=== PATIENT | female | born 1950 | race African-American/Black ===

== ENCOUNTER 2017-11-13 03:03 | Emergency (ER) | payer OTHER, MEDICARE ==
[~2017-11-13 03:03] MED LIST: ADVIN25050 INH; ASCO500T3 PO; ASPI81TA28 PO; COQ-10 PO; GFNSR600 PO; HYDR25TA5 PO; IPRA1AER2 INH; LSN20 PO; NEOMOIN3 TOP; OXY PO; SPRIN INH; TPRSR25 PO; VITAMIN B PO; VITAMIN E PO
[2017-11-13 03:08] VITALS: TEMP 36.4; Ht 182.9 cm
--- NOTE | 2017-11-13 03:32 | EMERGENCY ROOM VISIT NOTE ---
History Report prepared by Carlton: Vickie Yee Under the Supervision of: Dr. Jim Davis M.D. First contact with patient: 03:13 Chief Complaint: SWELLING TO EXTREMITY Stated Complaint: LEGS SWELLING AND PAINFUL History of Present Illness The patient is a 67 year old female who presents to the Emergency Room with complaints of persistent swelling in her legs that started 6-8 weeks ago. The patient rates her pain a 6/10 in severity. The patient states she does not have a history of a heart attack or liver problems. She notes she was put on new medications in February of 2017 when she was admitted to the hospital for a panic attack. She states she noticed slight swelling shortly after but it went away. She noticed an increase in swelling again about 2 months ago. The patient was admitted to the ED about 3 years ago for similar symptoms. She states she is experiencing abdominal pain. The patient denies any chest pain, shortness of breath, fevers, or back pain. She states she is a smoker but she has cut down from 1 pack per day to 3 cigarettes per day. She notes she has not changed her medications since February. Source of History: patient Onset: 6-8 weeks ago Position: leg (bilateral) Symptom Intensity: 6/10 Timing: other (persistent) Associated Symptoms: + abdominal pain, No fevers, No chest pain, No SOB, No back pain Review of Systems See HPI for pertinent positives & negatives. A total of 10 systems reviewed and were otherwise negative. Past Medical & Surgical Medical Problems: (1) Acute CHF (congestive heart failure) (2) HTN (hypertension) (3) Hx of penicillin allergy (4) Hypertensive urgency Family History No pertinent family history Social History Smoking Status: Current Some Day Smoker Drug Use: none Marital Status: Housing Status: lives with family Occupation Status: employed Current/Historical Medications Scheduled Aspirin (Aspirin Ec), 81 MG PO DAILY Carvedilol (Coreg), 6.25 MG PO BIDM Furosemide (Lasix), 20 MG PO BID Hydralazine Hcl (Apresoline), 25 MG PO Q8 Isosorbide Mononitrate Ext Rel (Imdur Ext Rel), 30 MG PO QAM Sennosides-Docusate Sodium (Stool Softener), 1 TAB PO DIRECTED Vitamins C & E (Vitamin C), 1 CAP PO DAILY Allergies Coded Allergies: Penicillins (Unverified Allergy, Unknown, ., 11/13/17) Physical Exam Vital Signs Date Time Temp Pulse Resp B/P (MAP) Pulse Ox O2 Delivery O2 Flow Rate FiO2 11/13/17 05:19 82 21 158/95 91 Room Air 11/13/17 03:08 36.4 87 19 151/101 94 Room Air Physical Exam GENERAL: Patient is minimally distressed, anxious appearing and in no acute distress. HEENT: No acute trauma, normocephalic atraumatic, mucous membranes moist, no nasal congestion, no scleral icterus. NECK: No stridor, no adenopathy, no meningismus, trachea is midline. LUNGS: Crackles in bilateral lower lobes. HEART: Regular rate and rhythm. No murmurs, rubs, gallops appreciated. ABDOMEN: Soft, nontender, bowel sounds positive, no masses appreciated, no peritonitis. BACK: No midline tenderness, no CVA tenderness EXTREMITIES: 4+ pitting edema in bilateral legs extending to lower back. NEUROLOGIC: Alert and oriented, no acute motor or sensory deficits, no focal weakness, cranial nerves grossly intact. SKIN: No rash, no jaundice, no diaphoresis. Medical Decision & Procedures Laboratory Results 11/13/17 03:40 Red Blood Count 4.55, Mean Corpuscular Volume 93.4, Mean Corpuscular Hemoglobin 30.5, Mean Corpuscular Hemoglobin Concent 32.7, Mean Platelet Volume 9.1, Neutrophils (%) (Auto) 58.6, Lymphocytes (%) (Auto) 27.8, Monocytes (%) (Auto) 10.5, Eosinophils (%) (Auto) 2.5, Basophils (%) (Auto) 0.4, Neutrophils # (Auto ) 4.99, Lymphocytes # (Auto) 2.37, Monocytes # (Auto) 0.89, Eosinophils # (Auto ) 0.21, Basophils # (Auto) 0.03 11/13/17 03:40 Test 11/13/17 03:40 11/13/17 04:25 White Blood Count 8.51 K/uL (4.8-10.8) Red Blood Count 4.55 M/uL (4.2-5.4) Hemoglobin 13.9 g/dL (12.0-16.0) Hematocrit 42.5 % (37-47) Mean Corpuscular Volume 93.4 fL (80-100) Mean Corpuscular Hemoglobin 30.5 pg (25-34) Mean Corpuscular Hemoglobin Concent 32.7 g/dl (32-36) Platelet Count 181 K/uL (130-400) Mean Platelet Volume 9.1 fL (7.4-10.4) Neutrophils (%) (Auto) 58.6 % Lymphocytes (%) (Auto) 27.8 % Monocytes (%) (Auto) 10.5 % Eosinophils (%) (Auto) 2.5 % Basophils (%) (Auto) 0.4 % Neutrophils # (Auto) 4.99 K/uL (1.4-6.5) Lymphocytes # (Auto) 2.37 K/uL (1.2-3.4) Monocytes # (Auto) 0.89 K/uL (0.11-0.59) Eosinophils # (Auto) 0.21 K/uL (0-0.5) Basophils # (Auto) 0.03 K/uL (0-0.2) RDW Standard Deviation 46.0 fL (36.4-46.3) RDW Coefficient of Variation 13.4 % (11.5-14.5) Immature Granulocyte % (Auto) 0.2 % Immature Granulocyte # (Auto) 0.02 K/uL (0.00-0.02) Anion Gap 4.0 mmol/L (3-11) Estimated GFR () 65.0 Estimated GFR (Non- 56.1 BUN/Creatinine Ratio 16.7 (10-20) Calcium Level 8.4 mg/dl (8.5-10.1) Magnesium Level 1.8 mg/dl (1.8-2.4) Total Bilirubin 1.1 mg/dl (0.2-1) Direct Bilirubin 0.4 mg/dl (0-0.2) Aspartate Amino Transf (AST/SGOT) 23 U/L (15-37) Alanine Aminotransferase (ALT/SGPT) 31 U/L (12-78) Alkaline Phosphatase 135 U/L (45-117) Total Creatine Kinase 153 U/L (26-192) Troponin I 0.043 ng/ml (0-0.045) Total Protein 6.3 gm/dl (6.4-8.2) Albumin 3.2 gm/dl (3.4-5.0) Thyroid Stimulating Hormone (TSH) 1.770 uIu/ml (0.300-4.500) Urine Color YELLOW Urine Appearance CLEAR (CLEAR) Urine pH 5.5 (4.5-7.5) Urine Specific [place] 1.017 (1.000-1.030) Urine Protein 2+ (NEG) Urine Glucose (UA) NEG (NEG) Urine Ketones NEG (NEG) Urine Occult Blood NEG (NEG) Urine Nitrite NEG (NEG) Urine Bilirubin NEG (NEG) Urine Urobilinogen NEG (NEG) Urine Leukocyte Esterase NEG (NEG) Urine WBC (Auto) 1-5 /hpf (0-5) Urine RBC (Auto) 0-4 /hpf (0-4) Urine Hyaline Casts (Auto) 1-5 /lpf (0-5) Urine Epithelial Cells (Auto) 20-30 /lpf (0-5) Urine Bacteria (Auto) NEG (NEG) Medications Administered Medications (Trade) Dose Ordered Sig/Yady Route Start Time Stop Time Status Last Admin Dose Admin Furosemide (Lasix Inj) 40 mg NOW STAT IV 11/13/17 04:58 11/13/17 04:59 DC 11/13/17 05:20 40 MG ECG Indication: other (swelling) Rate (beats per minute): 90 Rhythm: sinus rhythm Findings: PVC, ST depression (Lateral), T-wave inversion (Lateral), no acute ischemic change, no ectopy Comparison ECG Date: 10/17/15 Change: no significant change ED Course 0313: The patient was evaluated in room A10. A complete history and physical exam was performed. Medical Decision Differential: DVT, CHF, Arterial Occlusion, Infectious, Lymphedema, Idiopathic, Liver Failure, Hemialbumin, Trauma, amongst other pathologies entertained. 67 yr old female with longstanding CHF arrives for increasing leg swelling over the last few weeks. Clearly pitting edema bilateral legs without clear evidence of infection at this time. No TTP over calves nor DVT history nor reason to suspect bilateral DVT. Furthermore she has had similar symptoms before with negative US Duplex legs. CXR with congestive findings and with 4+ edema lower legs would be reasonable bringing in to hospital but she is in no interest of this and states she needs to get discharged. We discussed proper diet and exercise plus need to double her lasix dosing for the next 4 to 5 days while waiting to get in with PCP. I opted to give her initial IV dose lasix while here given how significant her edema is. Her Cr is OK, liver function is at baseline and I see no evidence of current infection. EKG is at her baseline and Trop is wnl and it appears her baseline is mildly positive. We discussed at length symptoms that require immediate RTED, including risks of kidney injury from lasix and possibility of failure outpatient therapy. I implored upon her the need to have a PCP and a Ammonia Operator and even had case management talk to her, though she is not willing to discuss seeing construction sales manager right night. Medication Reconcilliation Current Medication List: was personally reviewed by me Impression Primary Impression: Congestive heart failure Additional Impression: Bilateral leg edema Scribe Attestation The scribe's documentation has been prepared under my direction and personally reviewed by me in its entirety. I confirm that the note above accurately reflects all work, treatment, procedures, and medical decision making performed by me. Departure Information Dispostion Home / Self-Care Referrals No Doctor, Assigned (PCP) Patient Instructions Congestive Heart Failure -[facility], [facility] Additional Instructions It is absolutely important you follow up with a Primary Care Provider and a Ammonia Operator as soon as possible to manage your medical conditions. Double the dose of your Lasix (furosemide) for the next 4 to 5 days. Try to exercise several times daily by walking around as best you can. Eat a well balanced, low sodium diet. Keep legs elevated when you are able to do so. Call 911 or return immediately if you develop chest pain, shortness of breath, increasing weakness, pain in legs, fevers, or other emergent concerns. Problem Qualifiers Primary Impression: Congestive heart failure
[2017-11-13] MEDS ORDERED: FURO-85 PO (03:44)
[2017-11-13] MEDS ORDERED: HYDR-4717 PO (03:46)
[2017-11-13] MEDS ORDERED: ISOS30TA3 PO (03:47)
[2017-11-13] MEDS ORDERED: CARV6.252 PO (03:48)
[2017-11-13] MEDS ORDERED: SENNTAB23 PO (03:49)
[2017-11-13 03:52] LABS: BASO % 0.4 %; BASO ABS # 0.03 K/uL (0-0.2); EOS % 2.5 %; EOS ABS # 0.21 K/uL (0-0.5); HEMATOCRIT 42.5 % (37-47); HEMOGLOBIN 13.9 g/dL (12.0-16.0); IG# 0.02 K/uL (0.00-0.02); LYMPH % 27.8 %; LYMPH ABS # 2.37 K/uL (1.2-3.4); MEAN CELL VOLUME 93.4 fL (80-100); MEAN CORPUSCULAR HEMOGLOBIN 30.5 pg (25-34); MEAN CORPUSCULAR HGB CONC 32.7 g/dl (32-36); MEAN PLATELET VOLUME 9.1 fL (7.4-10.4); MONO % 10.5 %; MONO ABS # 0.89 K/uL (0.11-0.59); NEUT % 58.6 %; NEUT ABS # 4.99 K/uL (1.4-6.5); PLATELET COUNT 181 K/uL (130-400); RED CELL DISTRIBUTION WIDTH CV 13.4 % (11.5-14.5); WHITE BLOOD COUNT 8.51 K/uL (4.8-10.8)
[2017-11-13] MEDS ORDERED: VITACAP26 PO (03:52)
[2017-11-13 04:18] LABS: ALBUMIN 3.2 gm/dl (3.4-5.0); ALT/SGPT 31 U/L (12-78); AST/SGOT 23 U/L (15-37); BLOOD UREA NITROGEN 17 mg/dl (7-18); CALCIUM 8.4 mg/dl (8.5-10.1); CARBON DIOXIDE 29 mmol/L (21-32); CREATININE 1.02 mg/dl (0.60-1.20); GLUCOSE 99 mg/dl (70-99); POTASSIUM 3.7 mmol/L (3.5-5.1); SODIUM 134 mmol/L (136-145)
[2017-11-13 04:29] LABS: ALKALINE PHOSPHATASE 135 U/L (45-117); TOTAL PROTEIN 6.3 gm/dl (6.4-8.2)
[2017-11-13] MEDS ORDERED: FUROSEMIDE 40 MG/4 ML VIAL IV STA (04:58)
[2017-11-13 05:19] VITALS: BP 158/95; PULSE 82; O2SAT 91
--- NOTE | 2017-11-13 06:32 | DIAGNOSTIC IMAGING REPORT ---
CHEST ONE VIEW PORTABLE CLINICAL HISTORY: Congestive Heart Failure dyspnea COMPARISON STUDY: 10/15/2015 FINDINGS: Moderate stable cardiomegaly. Lungs are clear. Diaphragms are smooth. IMPRESSION: Cardiomegaly. Lungs are clear. The above report was generated using voice recognition software. It may contain grammatical, syntax or spelling errors. Electronically signed by: Zackery Love M.D. 11/13/2017 6:31 AM Dictated Date/Time: 11/13/2017 6:31 AM
== END 2017-11-13 05:31 | disposition home or self-care (01) ==
LOC: C.EDB 03:05 → C.EDA 05:31
DX: I50.9 Heart failure, unspecified (principal); R60.9 Edema, unspecified; I10 Essential (primary) hypertension; F17.200 Nicotine dependence, unspecified, uncomplicated; Z79.82 Long term (current) use of aspirin

== ENCOUNTER 2017-12-15 05:44 | Inpatient (IN) | payer OTHER, MEDICARE ==
[~2017-12-15] VITALS: Ht 182.9 cm; Wt 83.2 kg
[2017-12-15] VITALS (7 sets, daily range): BP systolic 109–154; BP diastolic 64–91; PULSE 76–85; TEMP 36.6–37.1; O2SAT 92–100; BMI 29.1
[~2017-12-15 05:44] MED LIST changes: -ADVIN25050 INH; -ASCO500T3 PO; +CARV6.252 PO; -COQ-10 PO; +FURO-85 PO; -GFNSR600 PO; +HYDR-4717 PO; -HYDR25TA5 PO; -IPRA1AER2 INH; +ISOS30TA3 PO; -LSN20 PO; -NEOMOIN3 TOP; -OXY PO; +SENNTAB23 PO; -SPRIN INH; -TPRSR25 PO; +VITACAP26 PO; -VITAMIN B PO; -VITAMIN E PO
--- NOTE | 2017-12-15 06:18 | EMERGENCY ROOM VISIT NOTE ---
History Report prepared by Carlton: Enid Isabel Under the Supervision of: Dr. Komal Pacheco D.O. (Komal Pacheco D.O.) Report prepared by Carlton: Juice Beck Under the Supervision of: Dr. Kota Roblero D.O. (Kota Roblero DO) First contact with patient: 05:59 (Komal Pacheco D.O.) First contact with patient: 06:07 (Kota Roblero DO) Chief Complaint: ABDOMINAL PAIN Stated Complaint: ABDOMINAL PAIN History of Present Illness The patient is a 67 year old female who presents to the Emergency Room with complaints of intermittent episodes of abdominal swelling that began about 12 days ago. The patient states that she has been experiencing abdominal pain, leg swelling, genital swelling, and pain with urination. She reports a history of CHF, hypertension, and glaucoma. The patient notes that she is currently a smoker. (Komal Pacheco D.O.) The patient is a 67 year old woman who presents to the Emergency Room with a chief complaint of intermittent suprapubic abdominal pain that began two months ago. She has a past medical history of CHF, hypertension, and glaucoma. A couple of months ago, the patient was diagnosed with CHF and started on Lasix. Ever since then, the patient has been experiencing frequent episodes of urination, about 9 times a day. She also began to experience this pressure-like pain whenever she urinates. She denies any fevers, chest pain, or shortness of breath. She notes that she smokes about 4 cigarettes a day. She denies any alcohol use. She still has her appendix, gallbladder, and uterus. She notes that she is having increased swelling to her abdomen, genitals, and legs. Source of History: patient Onset: 2 months ago Position: abdomen (suprapubic) Symptom Intensity: moderate Quality: pressure Timing: intermittent Associated Symptoms: + urinary symptoms (Frequency), No fevers, No chest pain, No SOB Note: She is experiencing increased swelling to her abdomen, legs, and genitals. (Kota Roblero DO) Review of Systems See HPI for pertinent positives & negatives. A total of 10 systems reviewed and were otherwise negative. (Komal Pacheco D.O.) See HPI for pertinent positives & negatives. A total of 10 systems reviewed and were otherwise negative. (Kota Roblero DO) Past Medical & Surgical Medical Problems: (1) Acute CHF (congestive heart failure) (2) HTN (hypertension) (3) Hx of penicillin allergy (4) Hypertensive urgency (Kota Roblero DO) Family History No pertinent family history (Komal Pacheco D.OElena) No pertinent family history (Kota Roblero DO) Social History Smoking Status: Current Some Day Smoker Drug Use: none Marital Status: Housing Status: lives with family Occupation Status: employed (Komal Pacheco D.O.) Smoking Status: Current Every Day Smoker Smokeless Tobacco Use: No Alcohol Use: none Drug Use: none (Kota Roblero DO) Current/Historical Medications Scheduled Aspirin (Aspirin Ec), 81 MG PO DAILY Atorvastatin (Lipitor), 40 MG PO HS Carvedilol (Coreg), 6.25 MG PO BIDM Furosemide (Lasix), 20 MG PO BID Hydralazine Hcl (Apresoline), 25 MG PO Q8 Isosorbide Mononitrate Ext Rel (Imdur Ext Rel), 30 MG PO QAM Vitamins C & E (Vitamin C), 1 CAP PO DAILY Scheduled PRN Ibuprofen (Advil), 200-600 MG PO Q4H PRN for Pain Sennosides-Docusate Sodium (Stool Softener), 1 TAB PO DIRECTED PRN for Constipation Allergies Coded Allergies: Penicillins (Verified Allergy, Unknown, PT STATES "THINK THE DOSE WAS TO HIGH"-CAN'T REMEMBER REACT, 12/15/17) Physical Exam Vital Signs Date Time Temp Pulse Resp B/P (MAP) Pulse Ox O2 Delivery O2 Flow Rate FiO2 12/15/17 06:12 95 Nasal Cannula 2.0 12/15/17 05:58 89 12/15/17 05:46 95 Nasal Cannula 2.0 12/15/17 05:44 36.3 95 24 166/111 87 Room Air (Kota Roblero DO) Medical Decision & Procedures Laboratory Results Test 12/15/17 06:09 12/15/17 06:37 Creatine Kinase MB Ratio (0-3.0) Laboratory results per my review. (Kota Roblero DO) ED Course 0609: Past medical records reviewed. The patient was evaluated in room B9. A complete history and physical exam was performed. (Komal Pacheco D.O.) 0607: The patient was evaluated in room B9. A complete history and physical examination were performed. (Kota Roblero DO) Medication Reconcilliation Current Medication List: was personally reviewed by me (Komal Pacheco D.O.) Current Medication List: was personally reviewed by me (Kota Roblero DO) Scribe Attestation The scribe's documentation has been prepared under my direction and personally reviewed by me in its entirety. I confirm that the note above accurately reflects all work, treatment, procedures, and medical decision making performed by me. (Komal Pacheco D.O.) The scribe's documentation has been prepared under my direction and personally reviewed by me in its entirety. I confirm that the note above accurately reflects all work, treatment, procedures, and medical decision making performed by me. (Kota Roblero DO) Departure Information Dispostion Home / Self-Care Referrals No Doctor, Assigned (PCP) Forms Call Back Authorization, HOME CARE DOCUMENTATION FORM, IMPORTANT VISIT INFORMATION Patient Instructions My [facility]
[2017-12-15] MEDS ORDERED: APR25 PO (06:19)
[2017-12-15] MEDS ORDERED: IBUP-1050 PO (06:19)
[2017-12-15] MEDS ORDERED: ATOR-24 PO (06:19)
[2017-12-15 06:48] LABS: BASO % 0.1 %; BASO ABS # 0.01 K/uL (0-0.2); EOS % 1.3 %; EOS ABS # 0.13 K/uL (0-0.5); HEMATOCRIT 38.4 % (37-47); HEMOGLOBIN 12.4 g/dL (12.0-16.0); IG# 0.02 K/uL (0.00-0.02); LYMPH % 12.2 %; LYMPH ABS # 1.24 K/uL (1.2-3.4); MEAN CELL VOLUME 89.7 fL (80-100); MEAN CORPUSCULAR HGB CONC 32.3 g/dl (32-36); MEAN PLATELET VOLUME 8.7 fL (7.4-10.4); MONO % 11.5 %; MONO ABS # 1.16 K/uL (0.11-0.59); NEUT % 74.7 %; NEUT ABS # 7.57 K/uL (1.4-6.5); PLATELET COUNT 201 K/uL (130-400); RED CELL DISTRIBUTION WIDTH CV 14.1 % (11.5-14.5); RED CELL DISTRIBUTION WIDTH SD 46.4 fL (36.4-46.3); WHITE BLOOD COUNT 10.13 K/uL (4.8-10.8)
--- NOTE | 2017-12-15 06:53 | EMERGENCY ROOM VISIT NOTE ---
History Report prepared by Carlton: Juice Beck Under the Supervision of: Dr. Kota Roblero D.O. First contact with patient: 06:07 Chief Complaint: ABDOMINAL PAIN Stated Complaint: ABDOMINAL PAIN Nursing Triage Summary: Pt arrived via [facility] from home. Per pt, she has been having severe abdominal pains "for a long while now" that come and go in waves. When pain is at its worse its a 10/10. Pt reports chronic constipation. Daughter reports pt had a "large bowel movement today". Pt also complaining of bilateral extremity edema from feet to pelvis. Pt concerned for UTI due to reports of pain with urination. Hx of glaucoma (nearly blind), HF History of Present Illness The patient is a 67 year old female who presents to the Emergency Room with complaints of intermittent suprapubic abdominal pain that began two months ago. She has a past medical history of CHF, hypertension, and glaucoma. A couple of months ago, the patient was diagnosed with CHF and started on Lasix. Ever since then, the patient has been experiencing frequent episodes of urination, about 9 times a day. She also began to experience this pressure-like pain whenever she urinates. She denies any fevers, chest pain, or shortness of breath. She notes that she smokes about 4 cigarettes a day. She denies any alcohol use. She still has her appendix, gallbladder, and uterus. She notes that she is having increased swelling to her abdomen, genitals, and legs. Source of History: patient Onset: 2 months ago Position: abdomen (suprapubic) Symptom Intensity: moderate Quality: pressure Timing: intermittent Associated Symptoms: + urinary symptoms (Frequency), No fevers, No chest pain, No SOB Note: She is experiencing an increased swelling to her abdomen, genitals, and legs. Review of Systems See HPI for pertinent positives & negatives. A total of 10 systems reviewed and were otherwise negative. Past Medical & Surgical Medical Problems: (1) Acute CHF (congestive heart failure) (2) HTN (hypertension) (3) Hx of penicillin allergy (4) Hypertensive urgency Family History No pertinent family history Social History Smoking Status: Current Every Day Smoker Smokeless Tobacco Use: No Alcohol Use: none Drug Use: none Marital Status: Housing Status: lives with family Occupation Status: employed Current/Historical Medications Scheduled Aspirin (Aspirin Ec), 81 MG PO DAILY Atorvastatin (Lipitor), 40 MG PO HS Carvedilol (Coreg), 6.25 MG PO BIDM Furosemide (Lasix), 20 MG PO BID Hydralazine Hcl (Apresoline), 25 MG PO Q8 Isosorbide Mononitrate Ext Rel (Imdur Ext Rel), 30 MG PO QAM Vitamins C & E (Vitamin C), 1 CAP PO DAILY Scheduled PRN Ibuprofen (Advil), 200-600 MG PO Q4H PRN for Pain Sennosides-Docusate Sodium (Stool Softener), 1 TAB PO DIRECTED PRN for Constipation Allergies Coded Allergies: Penicillins (Verified Allergy, Unknown, PT STATES "THINK THE DOSE WAS TO HIGH"-CAN'T REMEMBER REACT, 12/15/17) Physical Exam Vital Signs Date Time Temp Pulse Resp B/P (MAP) Pulse Ox O2 Delivery O2 Flow Rate FiO2 12/15/17 08:39 81 18 155/93 94 Room Air 12/15/17 07:18 88 20 145/90 95 Nasal Cannula 2.0 12/15/17 06:12 95 Nasal Cannula 2.0 12/15/17 05:58 89 12/15/17 05:46 95 Nasal Cannula 2.0 12/15/17 05:44 36.3 95 24 166/111 87 Room Air Physical Exam GENERAL: Patient is awake, alert, and in no acute distress. Patient is resting comfortably and showing no signs of anxiety EYES: The conjunctivae are clear. The pupils are round and reactive. EARS, NOSE, MOUTH AND THROAT: The nose is without any evidence of any deformity. Mucous membranes are moist tongue is midline NECK: The neck is nontender and supple. RESPIRATORY: Lung sounds were diminished throughout with scattered rhonchi. No tachypnea or conversational dyspnea. CARDIOVASCULAR: Regular rate and rhythm noted there no murmurs rubs or gallops normal S1 normal S2 GASTROINTESTINAL: The abdomen is moderately distended, but soft. Suprapubic distention was significant. Bowel sounds are present in all quadrants. Abdomen is diffusely tender. No guarding or rigidity. MUSCULOSKELETAL/EXTREMITIES: There is no evidence of gross deformity full range of motion is noted in the hips and shoulders SKIN: There is significant edema to both lower extremities with venous stasis changes noted. There is no obvious evidence of any rash. There are no petechiae , pallor or cyanosis noted. NEUROLOGIC: Patient is awake alert and oriented x3. Medical Decision & Procedures ER Provider Diagnostic Interpretation: Radiology results as stated below per my review and radiologist interpretation: CHEST ONE VIEW PORTABLE HISTORY: 67 years-old Female EVALUATE RESPIRATORY DISTRESS.DYSPNEA acute respiratory distress COMPARISON: Chest radiograph 11/13/2017, chest CT 10/19/2015 TECHNIQUE: Portable AP view of the chest FINDINGS: The cardiac silhouette is again moderately enlarged. Atherosclerosis of the aorta. There is no pneumothorax. No large pleural effusion. Emphysematous changes are noted with hyperinflation. There is mild pulmonary vascular congestion without overt pulmonary edema. Chronic interstitial coarsening redemonstrated with hazy subsegmental bibasilar opacities. The bones appear grossly intact. IMPRESSION: 1. Cardiomegaly without overt pulmonary edema. 2. Emphysema with chronic interstitial coarsening. 3. Subsegmental bibasilar opacities favor atelectasis. The above report was generated using voice recognition software. It may contain grammatical, syntax or spelling errors. Electronically signed by: Bulmaro Salazar M.D. 12/15/2017 6:49 AM Dictated Date/Time: 12/15/2017 6:47 AM ABDOMEN AND PELVIS CT WITH IV CONTRAST CT DOSE: 913.33 mGycm HISTORY: Acute generalized lower abdominal pain with lower extremity edema lower abd pain, LE edema TECHNIQUE: Multiaxial CT images of the abdomen and pelvis were performed following the use of intravenous contrast. A dose lowering technique was utilized adhering to the principles of ALARA. COMPARISON STUDY: Chest radiograph of same day, chest CT 10/19/2015. FINDINGS: Moderate enlargement of the imaged cardiac chambers. Trace bilateral pleural effusions. Emphysematous changes of the lungs redemonstrated. Groundglass opacities of the lung bases suggest atelectasis. There is no pneumatosis or pneumoperitoneum identified. Study is limited secondary to patient body habitus and patient motion. Decreased attenuation of the liver is compatible with fatty infiltration. The liver also appears to be mildly enlarged. The spleen, pancreas and right adrenal gland are unremarkable. The left adrenal gland is not well seen. The kidneys appear unremarkable. No hydronephrosis. 12 mm low attenuating lesion of the inferior pole right kidney suggests renal cyst. Urinary bladder is mostly decompressed. Uterus and adnexa are unremarkable. Air is noted within the endometrial canal. Uterine fundus. Mild amount of abdominal and pelvic ascites is noted with mesenteric and diffuse body wall edema. Moderate to extensive calcification of the aorta and iliac vasculature. No aneurysm. No pathologic adenopathy. Small sliding-type hiatal hernia. No bowel obstruction. Colonic diverticulosis without definite evidence of acute diverticulitis. Appendix is not well seen. Degenerative changes are noted throughout the spine. The bones appear osteopenic. IMPRESSION: 1. Findings compatible with fluid overload with mild abdominal and pelvic ascites, trace bilateral pleural effusions and diffuse body wall edema. 2. Hepatic steatosis. 3. No evidence of bowel obstruction or pneumoperitoneum. 4. Nonspecific air is noted within the endometrial canal near the uterine fundus. 5. Small sliding-type hiatal hernia. 6. Additional findings as above. Electronically signed by: Bulmaro Salazar M.D. 12/15/2017 8:14 AM Dictated Date/Time: 12/15/2017 8:05 AM Laboratory Results 12/15/17 06:37 Red Blood Count 4.28, Mean Corpuscular Volume 89.7, Mean Corpuscular Hemoglobin 29.0, Mean Corpuscular Hemoglobin Concent 32.3, Mean Platelet Volume 8.7, Neutrophils (%) (Auto) 74.7, Lymphocytes (%) (Auto) 12.2, Monocytes (%) (Auto) 11.5, Eosinophils (%) (Auto) 1.3, Basophils (%) (Auto) 0.1, Neutrophils # (Auto ) 7.57, Lymphocytes # (Auto) 1.24, Monocytes # (Auto) 1.16, Eosinophils # (Auto ) 0.13, Basophils # (Auto) 0.01 12/15/17 06:37 Test 12/15/17 06:37 12/15/17 07:10 White Blood Count 10.13 K/uL (4.8-10.8) Red Blood Count 4.28 M/uL (4.2-5.4) Hemoglobin 12.4 g/dL (12.0-16.0) Hematocrit 38.4 % (37-47) Mean Corpuscular Volume 89.7 fL (80-100) Mean Corpuscular Hemoglobin 29.0 pg (25-34) Mean Corpuscular Hemoglobin Concent 32.3 g/dl (32-36) Platelet Count 201 K/uL (130-400) Mean Platelet Volume 8.7 fL (7.4-10.4) Neutrophils (%) (Auto) 74.7 % Lymphocytes (%) (Auto) 12.2 % Monocytes (%) (Auto) 11.5 % Eosinophils (%) (Auto) 1.3 % Basophils (%) (Auto) 0.1 % Neutrophils # (Auto) 7.57 K/uL (1.4-6.5) Lymphocytes # (Auto) 1.24 K/uL (1.2-3.4) Monocytes # (Auto) 1.16 K/uL (0.11-0.59) Eosinophils # (Auto) 0.13 K/uL (0-0.5) Basophils # (Auto) 0.01 K/uL (0-0.2) RDW Standard Deviation 46.4 fL (36.4-46.3) RDW Coefficient of Variation 14.1 % (11.5-14.5) Immature Granulocyte % (Auto) 0.2 % Immature Granulocyte # (Auto) 0.02 K/uL (0.00-0.02) Prothrombin Time 12.7 SECONDS (9.0-12.0) Prothromb Time International Ratio 1.2 (0.9-1.1) Activated Partial Thromboplast Time 28.5 SECONDS (21.0-31.0) Partial Thromboplastin Ratio 1.1 Anion Gap 9.0 mmol/L (3-11) Est Creatinine Clear Calc Drug Dose 96.3 ml/min Estimated GFR () 99.0 Estimated GFR (Non- 85.4 BUN/Creatinine Ratio 16.1 (10-20) Calcium Level 8.5 mg/dl (8.5-10.1) Total Bilirubin 2.0 mg/dl (0.2-1) Aspartate Amino Transf (AST/SGOT) 15 U/L (15-37) Alanine Aminotransferase (ALT/SGPT) 19 U/L (12-78) Alkaline Phosphatase 148 U/L (45-117) Total Creatine Kinase 72 U/L (26-192) Creatine Kinase MB 2.7 ng/ml (0.5-3.6) Creatine Kinase MB Ratio 3.8 (0-3.0) Troponin I 0.019 ng/ml (0-0.045) Pro-B-Type Natriuretic Peptide 8359 pg/ml (0-900) Total Protein 6.1 gm/dl (6.4-8.2) Albumin 2.7 gm/dl (3.4-5.0) Globulin 3.4 gm/dl (2.5-4.0) Albumin/Globulin Ratio 0.8 (0.9-2) Urine Color ORANGE Urine Appearance TURBID (CLEAR) Urine pH 5.0 (4.5-7.5) Urine Specific [place] 1.037 (1.000-1.030) Urine Protein 3+ (NEG) Urine Glucose (UA) NEG (NEG) Urine Ketones TRACE (NEG) Urine Occult Blood 1+ (NEG) Urine Nitrite POS (NEG) Urine Bilirubin 1+ (NEG) Urine Urobilinogen NEG (NEG) Urine Leukocyte Esterase LARGE (NEG) Urine WBC (Auto) >30 /hpf (0-5) Urine RBC (Auto) 5-10 /hpf (0-4) Urine Hyaline Casts (Auto) /lpf (0-5) Urine Epithelial Cells (Auto) >30 /lpf (0-5) Urine Bacteria (Auto) 4+ (NEG) Urine Pathogenic Casts /lpf (0) Urine Yeast (Auto) (NONE PRSENT) Laboratory results per my review. Medications Administered Medications (Trade) Dose Ordered Sig/Yady Route Start Time Stop Time Status Last Admin Dose Admin Menthol (Nice Rebecca) 24 rebecca STK-MED ONCE REBECCA 12/15/17 07:01 12/15/17 07:02 DC 12/15/17 07:20 24 REBECCA Ceftriaxone Sodium (Rocephin Inj) 1 gm NOW STAT IV 12/15/17 08:03 12/15/17 08:05 DC 12/15/17 08:12 1 GM ECG Per My Interpretation Indication: abdominal pain Rate (beats per minute): 91 Rhythm: normal sinus Findings: PVC, other (Poor r-wave progression, no acute ST segments) Comparison ECG Date: 11/13/17 Change: no significant change ED Course 0607: The patient was evaluated in room B9. A complete history and physical examination were performed. 0701: Ordered Menthol 24 rebecca REBECCA 0803: Ordered Rocephin Inj 1 gm IV 0847: Upon reevaluation, the patient is resting. I discussed results and treatment plan with her. She verbalizes agreement and understanding. I spoke with Dr. Sands of the [facility] [place]. The patient will be evaluated for further management and care. Medical Decision Differential diagnosis: Etiologies such as appendicitis, diverticulitis, PUD, biliary pathology, UTI, pancreatitis, obstruction, mesenteric ischemia, aortic pathology, infections, inflammatory bowel disease, renal colic, as well as others were entertained. Nursing notes reviewed. The patient's previous electronic medical records reviewed. The patient is a 67-year-old female who presented to the emergency department for an evaluation of lower extremity edema. The patient was seen in our facility recently for similar complaints. At that time she was diagnosed with pulmonary edema and was started on Lasix. She has been taking the medications without relief. The patient is unable to get out of bed. She has had very severe swelling in her legs all the way up to her abdomen and because of this is unable to ambulate. The patient also had very significant abdominal distention. Initially I thought her condition could be consistent with a pelvic or intra-abdominal mass however the CAT scan did not reveal any definite signs of mass. I discussed the patient's laboratory and radiographic studies with her. She was started on an antibiotic for presumed urinary tract infection. She has an abnormal EKG which could be consistent with a ventricular hypertrophy or even a strain pattern. I do feel the patient may require further cardiac workup but also because of her ambulatory status may require significant diuresis. I discussed this case with the on-call [facility] hospitalist group. They have agreed to evaluate the patient in the emergency department for further management and disposition. Medication Reconcilliation Current Medication List: was personally reviewed by me Blood Pressure Screening Patient's blood pressure: Elevated blood pressure Referred to the hospitalist. Consults Time Called: 0845 Consulting Physician: Dr. Shavon ALEXANDER Returned Call: 0847 I discussed the patient's case with them. The patient will be evaluated for further management. Impression Primary Impression: Anasarca Additional Impressions: CHF (congestive heart failure) UTI (urinary tract infection) Hyponatremia Infestation by bed bug Scribe Attestation The scribe's documentation has been prepared under my direction and personally reviewed by me in its entirety. I confirm that the note above accurately reflects all work, treatment, procedures, and medical decision making performed by me. Departure Information Dispostion Being Evaluated By Hospitalist Referrals No Doctor, Assigned (PCP) Forms Call Back Authorization, HOME CARE DOCUMENTATION FORM, IMPORTANT VISIT INFORMATION Patient Instructions [facility] Problem Qualifiers Additional Impressions: CHF (congestive heart failure) Heart failure type: unspecified Heart failure chronicity: unspecified Qualified Codes: I50.9 - Heart failure, unspecified UTI (urinary tract infection) Urinary tract infection type: site unspecified Hematuria presence: with hematuria Qualified Codes: N39.0 - Urinary tract infection, site not specified ; R31.9 - Hematuria, unspecified
[2017-12-15] MEDS ORDERED: OPTIRAY 320 IV PRN (07:00)
[2017-12-15] MEDS ORDERED: COUGH DROP (SUGAR FREE) LOZ 24 LOZ/1 BOX LOZ ONE (07:01)
[2017-12-15 07:05] LABS: ALBUMIN 2.7 gm/dl (3.4-5.0); CALCIUM 8.5 mg/dl (8.5-10.1); CREATININE 0.72 mg/dl (0.60-1.20); POTASSIUM 3.5 mmol/L (3.5-5.1)
[2017-12-15 07:08] LABS: INR 1.2 (0.9-1.1); PTT PATIENT 28.5 SECONDS (21.0-31.0)
[2017-12-15 07:11] LABS: CKMB 2.7 ng/ml (0.5-3.6); TOTAL PROTEIN 6.1 gm/dl (6.4-8.2)
[2017-12-15] MEDS ORDERED: NURSING VERBAL MED ORDER ONE (07:30)
[2017-12-15] MEDS ORDERED: CEFTRIAXONE SOD INJ 1 GM ADDVIAL IV STA (08:03)
--- NOTE | 2017-12-15 08:16 | DIAGNOSTIC IMAGING REPORT ---
ABDOMEN AND PELVIS CT WITH IV CONTRAST CT DOSE: 913.33 mGycm HISTORY: Acute generalized lower abdominal pain with lower extremity edema lower abd pain, LE edema TECHNIQUE: Multiaxial CT images of the abdomen and pelvis were performed following the use of intravenous contrast. A dose lowering technique was utilized adhering to the principles of ALARA. COMPARISON STUDY: Chest radiograph of same day, chest CT 10/19/2015. FINDINGS: Moderate enlargement of the imaged cardiac chambers. Trace bilateral pleural effusions. Emphysematous changes of the lungs redemonstrated. Groundglass opacities of the lung bases suggest atelectasis. There is no pneumatosis or pneumoperitoneum identified. Study is limited secondary to patient body habitus and patient motion. Decreased attenuation of the liver is compatible with fatty infiltration. The liver also appears to be mildly enlarged. The spleen, pancreas and right adrenal gland are unremarkable. The left adrenal gland is not well seen. The kidneys appear unremarkable. No hydronephrosis. 12 mm low attenuating lesion of the inferior pole right kidney suggests renal cyst. Urinary bladder is mostly decompressed. Uterus and adnexa are unremarkable. Air is noted within the endometrial canal. Uterine fundus. Mild amount of abdominal and pelvic ascites is noted with mesenteric and diffuse body wall edema. Moderate to extensive calcification of the aorta and iliac vasculature. No aneurysm. No pathologic adenopathy. Small sliding-type hiatal hernia. No bowel obstruction. Colonic diverticulosis without definite evidence of acute diverticulitis. Appendix is not well seen. Degenerative changes are noted throughout the spine. The bones appear osteopenic. IMPRESSION: 1. Findings compatible with fluid overload with mild abdominal and pelvic ascites, trace bilateral pleural effusions and diffuse body wall edema. 2. Hepatic steatosis. 3. No evidence of bowel obstruction or pneumoperitoneum. 4. Nonspecific air is noted within the endometrial canal near the uterine fundus. 5. Small sliding-type hiatal hernia. 6. Additional findings as above. Electronically signed by: Bulmaro Salazar M.D. 12/15/2017 8:14 AM Dictated Date/Time: 12/15/2017 8:05 AM
[2017-12-15] MEDS ORDERED: FUROSEMIDE 40 MG/4 ML VIAL IV STA (09:16)
[2017-12-15] MEDS ORDERED: MoRPHine SULFATE 2 MG/ML CARP IV PRN (09:30)
[2017-12-15] MEDS ORDERED: POLYETHYLENE (MIRALAX) 17 GM PACK PO PRN (09:30)
[2017-12-15] MEDS ORDERED: MAGNESIUM HYDROXIDE SUSP 30 ML UDC PO PRN (09:30)
[2017-12-15] MEDS ORDERED: NITROGLYCERIN 0.4 MG SL PER TAB CHARGE SL PRN (09:30)
[2017-12-15] MEDS ORDERED: ONDANSETRON INJ 2 MG/ML 2 ML VIAL IV PRN (09:30)
--- NOTE | 2017-12-15 09:55 | History and Physical ---
History & Physical Date & Time of Service: Dec 15, 2017 at 09:40 Chief Complaint: Abdominal Pain Primary Care Physician: No Doctor, Assigned History of Present Illness Source: patient, family (daughter), clinic records, hospital records Patient is a pleasant 67 y/o female, with PMHx of HTN, systolic CHF, and HLD, who presented to the ED because of fluid build up and urinary symptoms. Patient is a very poor historian. She is unable to confirm medications. When asked who prescribed the medications, she states "I don't know, the last time I was seen was in [place] in February." She does not have a PCP. She states she was seen at the hospital in [place] in February due [place] the [place] day with [place] and felt short of breath. She states she was diagnosed with an anxiety attack and left with the prescribed medications she has now. She states she is currently very weak to the point of having trouble with walking. +Abdominal and lower extremity edema. She also notes urinary frequency. Denies h/o FL, cardiac cath, CVA/TIA, DVT/PE. Patient denies any fever, chills, sweats, lightheadedness , dizziness, vision changes, CP, palpitations, SOB, wheezing, cough, abdominal pain, nausea, vomiting, diarrhea, melena, numbness/tingling, muscle/joint pain, anxiety/depression, active bleeding, or new skin discoloration/changes. Past Medical/Surgical History HTN systolic CHF HLD tobacco abuse Family History No pertinent family history Social History Smoking Status: Current Every Day Smoker Smokeless Tobacco Use: No Drug Use: none Marital Status: Occupational Status: employed Allergies Coded Allergies: Penicillins (Verified Allergy, Unknown, PT STATES "THINK THE DOSE WAS TO HIGH"-CAN'T REMEMBER REACT, 12/15/17) Home Medications Scheduled Aspirin (Aspirin Ec), 81 MG PO DAILY Atorvastatin (Lipitor), 40 MG PO HS Carvedilol (Coreg), 6.25 MG PO BIDM Furosemide (Lasix), 20 MG PO BID Hydralazine Hcl (Apresoline), 25 MG PO Q8 Isosorbide Mononitrate Ext Rel (Imdur Ext Rel), 30 MG PO QAM Vitamins C & E (Vitamin C), 1 CAP PO DAILY Scheduled PRN Ibuprofen (Advil), 200-600 MG PO Q4H PRN for Pain Sennosides-Docusate Sodium (Stool Softener), 1 TAB PO DIRECTED PRN for Constipation Physical Exam Vital Signs Date Time Temp Pulse Resp B/P (MAP) Pulse Ox O2 Delivery O2 Flow Rate FiO2 12/15/17 08:39 81 18 155/93 94 Room Air 12/15/17 07:18 88 20 145/90 95 Nasal Cannula 2.0 12/15/17 06:12 95 Nasal Cannula 2.0 12/15/17 05:58 89 12/15/17 05:46 95 Nasal Cannula 2.0 12/15/17 05:44 36.3 95 24 166/111 87 Room Air General Appearance: no apparent distress, + obese, + pertinent finding (O2 NC) Head: normocephalic, atraumatic Eyes: normal inspection, PERRL ENT: hearing grossly normal Neck: supple, no JVD Respiratory/Chest: no respiratory distress, no accessory muscle use, + decreased breath sounds (throughout all lung reynoso ) Cardiovascular: regular rate, rhythm Abdomen/GI: normal bowel sounds, non tender, soft Back: normal inspection Extremities/Musculoskelatal: no calf tenderness, + swelling (+3 pitting edema of bilateral lower extremities ) Neurologic/Psych: alert, normal mood/affect, oriented x 3 Skin: normal color, warm/dry, no rash Diagnostics Laboratory Results Results Past 24 Hours Test 12/15/17 06:37 12/15/17 07:10 Range/Units White Blood Count 10.13 4.8-10.8 K/uL Red Blood Count 4.28 4.2-5.4 M/uL Hemoglobin 12.4 12.0-16.0 g/dL Hematocrit 38.4 37-47 % Mean Corpuscular Volume 89.7 80-100 fL Mean Corpuscular Hemoglobin 29.0 25-34 pg Mean Corpuscular Hemoglobin Concent 32.3 32-36 g/dl Platelet Count 201 130-400 K/uL Mean Platelet Volume 8.7 7.4-10.4 fL Neutrophils (%) (Auto) 74.7 % Lymphocytes (%) (Auto) 12.2 % Monocytes (%) (Auto) 11.5 % Eosinophils (%) (Auto) 1.3 % Basophils (%) (Auto) 0.1 % Neutrophils # (Auto) 7.57 1.4-6.5 K/uL Lymphocytes # (Auto) 1.24 1.2-3.4 K/uL Monocytes # (Auto) 1.16 0.11-0.59 K/uL Eosinophils # (Auto) 0.13 0-0.5 K/uL Basophils # (Auto) 0.01 0-0.2 K/uL RDW Standard Deviation 46.4 36.4-46.3 fL RDW Coefficient of Variation 14.1 11.5-14.5 % Immature Granulocyte % (Auto) 0.2 % Immature Granulocyte # (Auto) 0.02 0.00-0.02 K/uL Prothrombin Time 12.7 9.0-12.0 SECONDS Prothromb Time International Ratio 1.2 0.9-1.1 Activated Partial Thromboplast Time 28.5 21.0-31.0 SECONDS Partial Thromboplastin Ratio 1.1 Sodium Level 129 136-145 mmol/L Potassium Level 3.5 3.5-5.1 mmol/L Chloride Level 92 98-107 mmol/L Carbon Dioxide Level 28 21-32 mmol/L Anion Gap 9.0 3-11 mmol/L Blood Urea Nitrogen 12 7-18 mg/dl Creatinine 0.72 0.60-1.20 mg/dl Est Creatinine Clear Calc Drug Dose 96.3 ml/min Estimated GFR () 99.0 Estimated GFR (Non- 85.4 BUN/Creatinine Ratio 16.1 10-20 Random Glucose 96 70-99 mg/dl Calcium Level 8.5 8.5-10.1 mg/dl Total Bilirubin 2.0 0.2-1 mg/dl Aspartate Amino Transf (AST/SGOT) 15 15-37 U/L Alanine Aminotransferase (ALT/SGPT) 19 12-78 U/L Alkaline Phosphatase 148 45-117 U/L Total Creatine Kinase 72 26-192 U/L Creatine Kinase MB 2.7 0.5-3.6 ng/ml Creatine Kinase MB Ratio 3.8 0-3.0 Troponin I 0.019 0-0.045 ng/ml Pro-B-Type Natriuretic Peptide 8359 0-900 pg/ml Total Protein 6.1 6.4-8.2 gm/dl Albumin 2.7 3.4-5.0 gm/dl Globulin 3.4 2.5-4.0 gm/dl Albumin/Globulin Ratio 0.8 0.9-2 Urine Color ORANGE Urine Appearance TURBID CLEAR Urine pH 5.0 4.5-7.5 Urine Specific Kermit 1.037 1.000-1.030 Urine Protein 3+ NEG Urine Glucose (UA) NEG NEG Urine Ketones TRACE NEG Urine Occult Blood 1+ NEG Urine Nitrite POS NEG Urine Bilirubin 1+ NEG Urine Urobilinogen NEG NEG Urine Leukocyte Esterase LARGE NEG Urine WBC (Auto) >30 0-5 /hpf Urine RBC (Auto) 5-10 0-4 /hpf Urine Hyaline Casts (Auto) 0-5 /lpf Urine Epithelial Cells (Auto) >30 0-5 /lpf Urine Bacteria (Auto) 4+ NEG Urine Pathogenic Casts 0 /lpf Urine Yeast (Auto) NONE PRSENT Microbiology Results 12/15/17 Urine Culture, Received Pending Diagnostic Radiology ABDOMEN AND PELVIS CT WITH IV CONTRAST CT DOSE: 913.33 mGycm HISTORY: Acute generalized lower abdominal pain with lower extremity edema lower abd pain, LE edema TECHNIQUE: Multiaxial CT images of the abdomen and pelvis were performed following the use of intravenous contrast. A dose lowering technique was utilized adhering to the principles of ALARA. COMPARISON STUDY: Chest radiograph of same day, chest CT 10/19/2015. FINDINGS: Moderate enlargement of the imaged cardiac chambers. Trace bilateral pleural effusions. Emphysematous changes of the lungs redemonstrated. Groundglass opacities of the lung bases suggest atelectasis. There is no pneumatosis or pneumoperitoneum identified. Study is limited secondary to patient body habitus and patient motion. Decreased attenuation of the liver is compatible with fatty infiltration. The liver also appears to be mildly enlarged. The spleen, pancreas and right adrenal gland are unremarkable. The left adrenal gland is not well seen. The kidneys appear unremarkable. No hydronephrosis. 12 mm low attenuating lesion of the inferior pole right kidney suggests renal cyst. Urinary bladder is mostly decompressed. Uterus and adnexa are unremarkable. Air is noted within the endometrial canal. Uterine fundus. Mild amount of abdominal and pelvic ascites is noted with mesenteric and diffuse body wall edema. Moderate to extensive calcification of the aorta and iliac vasculature. No aneurysm. No pathologic adenopathy. Small sliding-type hiatal hernia. No bowel obstruction. Colonic diverticulosis without definite evidence of acute diverticulitis. Appendix is not well seen. Degenerative changes are noted throughout the spine. The bones appear osteopenic. IMPRESSION: 1. Findings compatible with fluid overload with mild abdominal and pelvic ascites, trace bilateral pleural effusions and diffuse body wall edema. 2. Hepatic steatosis. 3. No evidence of bowel obstruction or pneumoperitoneum. 4. Nonspecific air is noted within the endometrial canal near the uterine fundus. 5. Small sliding-type hiatal hernia. 6. Additional findings as above. Electronically signed by: Bulmaro Salazar M.D. 12/15/2017 8:14 AM Dictated Date/Time: 12/15/2017 8:05 AM The status of this report is Signed. Draft = Not yet reviewed or approved by Radiologist. Signed = Reviewed and approved by Radiologist. CHEST ONE VIEW PORTABLE HISTORY: 67 years-old Female EVALUATE RESPIRATORY DISTRESS.DYSPNEA acute respiratory distress COMPARISON: Chest radiograph 11/13/2017, chest CT 10/19/2015 TECHNIQUE: Portable AP view of the chest FINDINGS: The cardiac silhouette is again moderately enlarged. Atherosclerosis of the aorta. There is no pneumothorax. No large pleural effusion. Emphysematous changes are noted with hyperinflation. There is mild pulmonary vascular congestion without overt pulmonary edema. Chronic interstitial coarsening redemonstrated with hazy subsegmental bibasilar opacities. The bones appear grossly intact. IMPRESSION: 1. Cardiomegaly without overt pulmonary edema. 2. Emphysema with chronic interstitial coarsening. 3. Subsegmental bibasilar opacities favor atelectasis. The above report was generated using voice recognition software. It may contain grammatical, syntax or spelling errors. Electronically signed by: Bulmaro Salazar M.D. 12/15/2017 6:49 AM Dictated Date/Time: 12/15/2017 6:47 AM The status of this report is Signed. Draft = Not yet reviewed or approved by Radiologist. Signed = Reviewed and approved by Radiologist. EKG ANAHISUZIE ID:[id number] 15-DEC-2017 05:55:01 [facility] Sinus rhythm with frequent Premature ventricular complexes Nonspecific T wave abnormality Abnormal ECG When compared with ECG of 13-NOV-2017 03:31, T wave inversion no longer evident in Lateral leads 25mm/s 10mm/mV 150Hz 8.0 SP2 12SL 241 ELIO: 10 Referred by: Referred Self Unconfirmed Vent. rate [address] interval 176 ms QRS duration 88 ms QT/QTc 364/447 ms P-R-T axes 82 -9 88 1950 (67 yr) Female 80in 1lb Room:B09 Loc:15 [employer]ump [address] Driver Off Highway:Karina Munguia ind: Impression Assessment and Plan Patient is a pleasant 67 y/o female, with PMHx of HTN, systolic CHF, and HLD, who presented to the ED because of fluid build up and urinary symptoms. Acute on chronic systolic CHF exacerbation: - Admit to tele for cardiac monitoring - O2 protocol, wean as tolerated- does NOT have O2 supplement at home - Trend cardiac enzymes - EKG QAM and PRN for chest pain - ECHO pending - IV Lasix 40 mg BID - Place [place]- monitor I&Os and daily weights - IV Morphine and Nitro PRN for chest pain - Obtain outside records - Consult cardiology, appreciate recommendations Hyponatremia, likely secondary to CHF: IV Lasix as above Abnormal UA: IV Rocephin pending UCx Bed bugs: Isolation/contact precautions Constipation: MiraLAX daily PRN + Dulcolax 5 mg BID PRN HTN, HLD: - Continue ASA 81 mg daily, Lipitor 40 mg HS, Coreg 6.25 mg BID, Imdur 30 mg daily - Check lipid panel Tobacco abuse: - Nicotine patch - Smoking cessation counselling Fatty liver on CT: Encourage healthy diet and exercise GI prophylaxis: Protonix daily DVT prophylaxis: Heparin SQ BID Code status: LEVEL I, FULL Dispo: From home- PT/OT and CM consulted Level of Care Telemetry Resuscitation Status FULL RESUSCITATION VTE Prophylaxis VTE Risk Assessment Done? Y/N: Yes Risk Level: Moderate Given or contraindicated: Unfractionated heparin SQ, T.E.D. Stockings, SCD's
[2017-12-15] MEDS ORDERED: BISACODYL 5 MG TABEC PO PRN (10:00)
--- NOTE | 2017-12-15 14:11 | Cardiology Consultation ---
Cardiology Consultation Date of Consultation: Dec 15, 2017. Requesting Physician: Trini Reason for Consultation: CHF Pt evaluation today including: conversation w/ patient, physical exam, chart review, lab review, review of studies, review of inpatient medication list, conversation w/ attending History of Present Illness The patient is a 67-year-old woman with a history a cardiomyopathy presented to [facility] with symptoms of lower extremity edema and abdominal discomfort. Patient states that over several weeks she has noticed increasing abdominal girth and swelling in her lower extremities. She states that it is very difficult to ambulate as her legs are quite heavy. She did not endorse overt dyspnea. She is a very restless sleeper and often sleeps in a chair but did not report overt orthopnea or paroxysmal nocturnal dyspnea. She has not had dizziness or lightheadedness. She has not report any symptoms of chest discomfort whether at rest or with activity. The patient spent the last 8 months in [place] and reports having been admitted to a hospital bare around February of last year. She recalls being admitted due to a panic attack. It seems that the patient and her friend were visiting a local casino on on the way home due to symptoms of breathing difficulty she proceeded to the hospital. At that time she recalls being told that she had edema and a cardiomyopathy and also described having had a cardiac catheterization. It seems she was placed on medical therapy at that time and reportedly has been compliant. She claims to have felt worse after starting medicines on several occasions had some interest in stopping but reportedly continue to take them. The patient does recall being admitted to [facility] in 2014. At that time she felt that she was admitted for evaluation due to inhalation of some particles from her rug. Past Medical/Surgical History Allergic rhinitis COPD Systolic heart failure Family History No pertinent family history Mother alive in her 90s. 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 No recent history of fevers or chills. All Other Systems: Reviewed and Negative Allergies Coded Allergies: Penicillins (Verified Allergy, Unknown, PT STATES "THINK THE DOSE WAS TO HIGH"-CAN'T REMEMBER REACT, 12/15/17) Medications Current Inpatient Medications Medications (Trade) Dose Ordered Sig/Yady Route Start Time Stop Time Status Last Admin Dose Admin Ioversol (Optiray 320) 100 ml UD PRN IV 12/15/17 07:00 12/19/17 06:59 Heparin Sodium (Porcine) (Heparin Sq 5000 Unit/0.5ml) 5,000 unit Q12 SQ 12/15/17 21:00 01/14/18 20:59 Acetaminophen (Tylenol Tab) 650 mg Q4H PRN PO 12/15/17 09:30 01/14/18 09:29 Al Hydrox/Mg Hydrox/Simethicone (Maalox Max Susp) 15 ml Q4H PRN PO 12/15/17 09:30 01/14/18 09:29 Magnesium Hydroxide (Milk Of Magnesia Susp) 30 ml Q12H PRN PO 12/15/17 09:30 01/14/18 09:29 Ondansetron HCl (Zofran Inj) 4 mg Q6H PRN IV 12/15/17 09:30 01/14/18 09:29 Nitroglycerin (Nitrostat Tab) 0.4 mg UD PRN SL 12/15/17 09:30 01/14/18 09:29 Morphine Sulfate (MoRPHine SULFATE INJ) 2 mg Q30M PRN IV 12/15/17 09:30 12/29/17 09:29 Polyethylene (Miralax Powder Packet) 17 gm DAILY PRN PO 12/15/17 09:30 01/14/18 09:29 Aspirin (Ecotrin Tab) 81 mg DAILY PO 12/16/17 09:00 01/15/18 08:59 Atorvastatin Calcium (Lipitor Tab) 40 mg HS PO 12/15/17 21:00 01/14/18 20:59 Carvedilol (Coreg Tab) 6.25 mg BIDM PO 12/15/17 16:45 01/14/18 17:59 Hydralazine HCl (Apresoline Tab) 25 mg Q8 PO 12/15/17 14:00 01/14/18 13:59 Isosorbide Mononitrate (Imdur Ext Rel Tab) 30 mg QAM PO 12/16/17 09:00 01/15/18 08:59 Furosemide 40 mg/ Syringe 4 ml @ 4 mls/min BID IV 12/15/17 21:00 01/14/18 20:59 Ceftriaxone Sodium 1 gm/ Dextrose 50 ml @ 100 mls/hr Q24H IV 12/16/17 09:00 12/21/17 08:59 Pantoprazole Sodium (Protonix Tab) 40 mg QAM PO 12/16/17 09:00 12/20/17 08:59 Nicotine (Nicoderm Cq 7 Mg Patch) 1 patch QAM TD 12/15/17 12:00 01/14/18 11:59 Miscellaneous (Remove Nicoderm Patch) 1 ea HS N/A 12/15/17 21:00 01/14/18 20:59 Bisacodyl (Dulcolax Tab) 5 mg BID PRN PO 12/15/17 10:00 01/14/18 09:59 Physical Exam Vital Signs Past 12 Hours Date Time Temp Pulse Resp B/P (MAP) Pulse Ox O2 Delivery O2 Flow Rate FiO2 12/15/17 12:00 95 Nasal Cannula 2.0 12/15/17 12:00 36.6 76 17 154/91 (112) 92 Room Air 12/15/17 10:07 81 20 147/97 95 Nasal Cannula 2.0 12/15/17 09:51 94 Nasal Cannula 2.0 12/15/17 08:39 81 18 155/93 94 Room Air 12/15/17 07:18 88 20 145/90 95 Nasal Cannula 2.0 12/15/17 06:12 95 Nasal Cannula 2.0 12/15/17 05:58 89 12/15/17 05:46 95 Nasal Cannula 2.0 12/15/17 05:44 36.3 95 24 166/111 87 Room Air She is alert and oriented x3. Mood affect appear normal. She answered all questions appropriately. HEENT: Sclerae are anicteric. Pupils are equal and reactive to light and accommodation. Extraocular movements were intact. Neuro: Cranial nerves intact Neck: Examination of the submandibular region did not reveal any significant lymphadenopathy. Carotids are palpable bilaterally and free of bruits on auscultation. There was no evidence of jugular venous distention. The thyroid was not enlarged. Lungs: Lungs are clear to auscultation bilaterally but she had poor overall excursion and breath sounds were distant. There are no rales wheezes or rhonchi. She has normal respiratory effort without use of accessory muscles. There is normal pulmonary excursion. Cardiac: The rhythm was regular with frequent ectopy. S1 and S2 were normal. There are no murmurs on examination. The PMI was not markedly displaced on palpation. Abdomen: The abdomen was soft and nontender. Extremities: Patient has bilateral radial pulses that are equal in intensity. There is no evidence cyanosis or clubbing. She has severe lower extremity edema to the hips. Skin: There are no rashes noted on examination today, but some erythema involving lower extremities. Data Laboratory Results: Last 24 Hours Test 12/15/17 06:37 12/15/17 07:10 12/15/17 13:53 White Blood Count 10.13 K/uL Red Blood Count 4.28 M/uL Hemoglobin 12.4 g/dL Hematocrit 38.4 % Mean Corpuscular Volume 89.7 fL Mean Corpuscular Hemoglobin 29.0 pg Mean Corpuscular Hemoglobin Concent 32.3 g/dl Platelet Count 201 K/uL Mean Platelet Volume 8.7 fL Neutrophils (%) (Auto) 74.7 % Lymphocytes (%) (Auto) 12.2 % Monocytes (%) (Auto) 11.5 % Eosinophils (%) (Auto) 1.3 % Basophils (%) (Auto) 0.1 % Neutrophils # (Auto) 7.57 K/uL Lymphocytes # (Auto) 1.24 K/uL Monocytes # (Auto) 1.16 K/uL Eosinophils # (Auto) 0.13 K/uL Basophils # (Auto) 0.01 K/uL RDW Standard Deviation 46.4 fL RDW Coefficient of Variation 14.1 % Immature Granulocyte % (Auto) 0.2 % Immature Granulocyte # (Auto) 0.02 K/uL Prothrombin Time 12.7 SECONDS Prothromb Time International Ratio 1.2 Activated Partial Thromboplast Time 28.5 SECONDS Partial Thromboplastin Ratio 1.1 Sodium Level 129 mmol/L Potassium Level 3.5 mmol/L Chloride Level 92 mmol/L Carbon Dioxide Level 28 mmol/L Anion Gap 9.0 mmol/L Blood Urea Nitrogen 12 mg/dl Creatinine 0.72 mg/dl Est Creatinine Clear Calc Drug Dose 96.3 ml/min Estimated GFR () 99.0 Estimated GFR (Non- 85.4 BUN/Creatinine Ratio 16.1 Random Glucose 96 mg/dl Calcium Level 8.5 mg/dl Total Bilirubin 2.0 mg/dl Aspartate Amino Transf (AST/SGOT) 15 U/L Alanine Aminotransferase (ALT/SGPT) 19 U/L Alkaline Phosphatase 148 U/L Total Creatine Kinase 72 U/L Creatine Kinase MB 2.7 ng/ml Creatine Kinase MB Ratio 3.8 Troponin I 0.019 ng/ml Pro-B-Type Natriuretic Peptide 8359 pg/ml Total Protein 6.1 gm/dl Albumin 2.7 gm/dl Globulin 3.4 gm/dl Albumin/Globulin Ratio 0.8 Thyroid Stimulating Hormone (TSH) 0.903 uIu/ml Urine Color ORANGE Urine Appearance TURBID Urine pH 5.0 Urine Specific Warner 1.037 Urine Protein 3+ Urine Glucose (UA) NEG Urine Ketones TRACE Urine Occult Blood 1+ Urine Nitrite POS Urine Bilirubin 1+ Urine Urobilinogen NEG Urine Leukocyte Esterase LARGE Urine WBC (Auto) >30 /hpf Urine RBC (Auto) 5-10 /hpf Urine Hyaline Casts (Auto) /lpf Urine Epithelial Cells (Auto) >30 /lpf Urine Bacteria (Auto) 4+ Urine Pathogenic Casts /lpf Urine Yeast (Auto) Imaging: Chest x-ray demonstrated cardiomegaly. CT of the abdomen demonstrated overall volume overload with an element of ascites and bilateral pleural effusions EKG: Sinus rhythm with PVCs. Poor R-wave progression concerning for old anterior myocardial infarction Telemetry reviewed: Normal sinus rhythm with frequent ventricular ectopy Echocardiogram performed 10/08/2015: Ejection fraction 35%, mild LVH, pulmonary hypertension Assessment & Plan 1. Edema: Patient daily has an element of decompensated heart failure. This likely systolic and may be more right than left ventricular. Lung examination is relatively benign and she has not been experiencing symptoms of worsening dyspnea. However, she did have systolic dysfunction previously an elevated pulmonary pressures possibly related both to primary pulmonary disease and LV systolic failure. At this point I would agree with aggressive diuresis monitoring her renal function electrolytes closely. 2. Cardiomyopathy: Echocardiogram is pending for today. However, it is very likely that she has continued LV systolic dysfunction as demonstrated in 2015 and most likely during her recent hospitalization in [place]. Likely this is nonischemic as she did describe a cardiac catheterization performed in [place]. We will attempt to obtain those records. She has been maintained on a beta-alis and diuretic regimen. She likely would benefit from Pj inhibition as well. 3. Hypertension: Patient is on a fairly complex medical regimen for hypertension. I would advocate substitution of an PJ-inhibitor for her hydralazine given her known LV systolic dysfunction. Renal function appears to be normal. 4. Valvular heart disease: Mild to moderate mitral regurgitation previously. Current echocardiogram pending.
[2017-12-15 14:31] LABS: CKMB 4.2 ng/ml (0.5-3.6)
[2017-12-15] MEDS: NICOTINE 7 MG/24 HR TDSY TD SCH (16:37)
[2017-12-15] MEDS: CARVEDILOL 6.25 MG TAB PO SCH (16:38)
[2017-12-15] MEDS: ALUMINUM/MAGNESIUM/SIMETH (MAALOX MAX) 30 ML UDC PO PRN (16:42)
[2017-12-15] MEDS: ACETAMINOPHEN 325 MG TAB PO PRN ×2 (16:43→21:48)
[2017-12-15] MEDS: FUROSEMIDE INJ 40 MG in SYRINGE 0 ML IV SCH (20:18)
[2017-12-15] MEDS: ATORVASTATIN 40 MG TAB PO SCH (20:19)
[2017-12-15] MEDS: HEPARIN SOD 5000 UNIT/0.5 ML CARP SQ SCH (21:18)
[2017-12-16] VITALS (9 sets, daily range): BP systolic 113–129; BP diastolic 68–86; PULSE 74–86; TEMP 36.7–37.1; O2SAT 93–99
[2017-12-16 02:17] LABS: POTASSIUM 3.2 mmol/L (3.5-5.1)
[2017-12-16] MEDS: POTASSIUM CHLR 10 MEQ / WTR 10 MEQ in PREMIXED WATER 100 ML IV SCH ×4 (03:50→07:52)
[2017-12-16] MEDS: MAGNESIUM SULFATE 1GM / D5W 1 GM in PREMIXED IN D5W 100 ML IV SCH ×2 (03:50→05:11)
[2017-12-16] MEDS: ACETAMINOPHEN 325 MG TAB PO PRN ×3 (04:05→20:11)
[2017-12-16 07:32] LABS: HEMATOCRIT 32.9 % (37-47); HEMOGLOBIN 10.9 g/dL (12.0-16.0); MEAN CELL VOLUME 88.9 fL (80-100); MEAN CORPUSCULAR HEMOGLOBIN 29.5 pg (25-34); MEAN CORPUSCULAR HGB CONC 33.1 g/dl (32-36); PLATELET COUNT 209 K/uL (130-400); RED CELL DISTRIBUTION WIDTH CV 14.1 % (11.5-14.5); RED CELL DISTRIBUTION WIDTH SD 46.1 fL (36.4-46.3); WHITE BLOOD COUNT 11.21 K/uL (4.8-10.8)
[2017-12-16 07:33] LABS: MEAN PLATELET VOLUME 8.5 fL (7.4-10.4)
[2017-12-16] MEDS: FUROSEMIDE INJ 40 MG in SYRINGE 0 ML IV SCH ×2 (07:53→20:12)
[2017-12-16] MEDS: PANTOprazole SOD 40 MG TAB PO SCH (07:54)
[2017-12-16] MEDS: ISOSORBIDE MONONITRATE 30 MG TABCR PO SCH (07:54)
[2017-12-16] MEDS: CARVEDILOL 6.25 MG TAB PO SCH ×2 (07:54→17:08)
[2017-12-16] MEDS: LISINOPRIL 5 MG TAB PO SCH (07:54)
[2017-12-16] MEDS: ASPIRIN 81 MG ECTAB PO SCH (07:54)
[2017-12-16] MEDS: NICOTINE 7 MG/24 HR TDSY TD SCH (07:55)
[2017-12-16 07:59] LABS: CREATININE 0.76 mg/dl (0.60-1.20); POTASSIUM 3.5 mmol/L (3.5-5.1)
[2017-12-16] MEDS: HEPARIN SOD 5000 UNIT/0.5 ML CARP SQ SCH ×2 (08:37→20:15)
[2017-12-16] MEDS: CEFTRIAXONE SOD INJ 1 GM in DEXTROSE 5% ADD-VANTAGE 50ML 50 ML IV SCH (09:45)
[2017-12-16] MEDS ORDERED: BISACODYL 10 MG SUPP PR PRN (12:15)
[2017-12-16] MEDS ORDERED: BISACODYL 10 MG SUPP PR ONE (12:30)
--- NOTE | 2017-12-16 14:23 | Progress Note ---
Subjective Date of Service: Dec 16, 2017. Subjective Pt evaluation today including: conversation w/ patient, conversation w/ family , physical exam, chart review, lab review, review of studies, conversation w/ client insights consultant, review of inpatient medication list Has good diuretic, good urine output, reports shortness of breath is much better , however patient reports some uncomfortable lower back which is some pain, which is not new Bilateral lower extremities still swelling, report only have tiny amount of bowel movement, has no have good bowel movement for 3 days Problem List Medical Problems: (1) Anasarca Status: Acute (2) Bilateral leg edema Status: Acute (3) CHF (congestive heart failure) Status: Acute (4) CHF (congestive heart failure) Status: Acute (5) Congestive heart failure Status: Acute (6) Elevated bilirubin Status: Acute (7) Hyponatremia Status: Acute (8) Infestation by bed bug Status: Acute (9) UTI (urinary tract infection) Status: Acute Review of Systems Constitutional: + weakness, + fatigue, No fever, No chills, No sweats, No weight loss, No problem reported Eyes: No worsening of vision, No eye pain, No redness, No discharge, No diplopia ENT: No hearing loss, No unusual epistaxis, No nasal symptoms, No sore throat, No tinnitus, No dental problems, No trouble swallowing Respiratory: + cough, + shortness of breath, + dyspnea on exertion, No sputum, No wheezing, No dyspnea at rest, No hemoptysis Cardiac: + edema, No chest pain, No orthopnea, No PND, No claudication, No palpitations Abdomen: + constipation, No pain, No nausea, No vomiting, No diarrhea Musculoskeletal: No joint pain, No muscle pain, No swelling, No calf pain Female : No dysuria, No urinary frequency, No hematuria, No incontinence, No abnormal vaginal bleeding, No vaginal discharge Neurologic: No memory loss, No paralysis, No weakness, No numbness/tingling, No vertigo, No balance problems Psychiatric: No depression symptoms, No anhedonism, No anxiety, No insomnia, No substance abuse Heme: No abnormal bleeding/bruising, No clotting problems, No swollen lymph nodes, No night sweats Endo: No fatigue, No excessive thirst, No excessive urination Skin: No rash, No itch, No new/changing skin lesions, No color change, No bleeding Objective Vital Signs Date Time Temp Pulse Resp B/P (MAP) Pulse Ox O2 Delivery O2 Flow Rate FiO2 12/16/17 12:21 36.7 76 21 117/71 (86) 96 Nasal Cannula 2.0 12/16/17 12:00 Nasal Cannula 2.0 12/16/17 08:23 37.0 74 23 114/86 (95) 94 Room Air 12/16/17 08:00 95 Nasal Cannula 2.0 12/16/17 04:00 Nasal Cannula 2.0 12/16/17 03:57 36.8 79 18 116/78 (91) 95 Nasal Cannula 2.0 12/16/17 00:01 Nasal Cannula 2.0 12/15/17 23:30 37.1 81 23 111/69 (83) 96 Nasal Cannula 3.0 12/15/17 21:49 116/64 (81) 12/15/17 20:00 Nasal Cannula 2.0 12/15/17 19:06 36.9 80 24 109/65 (80) 97 Nasal Cannula 3.0 12/15/17 16:00 94 Nasal Cannula 2.0 12/15/17 15:35 36.6 85 24 140/91 (107) 100 Nasal Cannula 3.0 Physical Exam General Appearance: WD/WN, no apparent distress, + cachetic, + thin, + pertinent finding (Frail and chronically ill looking) Eyes: normal inspection, PERRL, EOMI, sclerae normal ENT: normal ENT inspection, hearing grossly normal, pharynx normal Neck: supple, no adenopathy, thyroid normal, no JVD, no carotid bruits, trachea midline Respiratory/Chest: chest non-tender, normal breath sounds, no respiratory distress, no accessory muscle use, + decreased breath sounds, + crackles ( Bilateral lower), + wheezing Cardiovascular: regular rate, rhythm, no edema, no gallop, no JVD, no murmur Abdomen: normal bowel sounds, non tender, soft, no organomegaly, no pulsatile mass Extremities: normal range of motion, non-tender, normal inspection, no pedal edema, no calf tenderness, normal capillary refill, pelvis stable Neurologic/Psychiatric: channel cementer outsole 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 II-XII nml as tested, no motor/sensory deficits, alert, normal mood/affect, oriented x 3 Skin: normal color, warm/dry, no rash Lymphatic: no adenopathy Laboratory Results Last 24 Hours Test 12/15/17 21:59 12/16/17 01:33 12/16/17 07:06 Creatine Kinase MB 3.0 ng/ml Creatine Kinase MB Ratio Troponin I 0.027 ng/ml Potassium Level 3.2 mmol/L 3.5 mmol/L Magnesium Level 1.6 mg/dl 2.2 mg/dl White Blood Count 11.21 K/uL Red Blood Count 3.70 M/uL Hemoglobin 10.9 g/dL Hematocrit 32.9 % Mean Corpuscular Volume 88.9 fL Mean Corpuscular Hemoglobin 29.5 pg Mean Corpuscular Hemoglobin Concent 33.1 g/dl RDW Standard Deviation 46.1 fL RDW Coefficient of Variation 14.1 % Platelet Count 209 K/uL Mean Platelet Volume 8.5 fL Sodium Level 132 mmol/L Chloride Level 95 mmol/L Carbon Dioxide Level 32 mmol/L Anion Gap 5.0 mmol/L Blood Urea Nitrogen 13 mg/dl Creatinine 0.76 mg/dl Est Creatinine Clear Calc Drug Dose 91.4 ml/min Estimated GFR () 92.8 Estimated GFR (Non- 80.0 BUN/Creatinine Ratio 16.9 Random Glucose 103 mg/dl Calcium Level 8.0 mg/dl Triglycerides Level 36 mg/dl Cholesterol Level 63 mg/dl HDL Cholesterol 29 mg/dl LDL Cholesterol, Calculated 27 mg/dl VLDL Cholesterol, Calculated 7 mg/dl Cholesterol/HDL Ratio 2.2 Assessment and Plan 67-year-old -Citizen Of [place] female, admitted with acute on chronic systolic CHF exacerbation, with history of CHF and cardiomyopathy, hyponatremia, possible UTI, Bed bugs with possible poor personal hygiene, and constipation: PMHx of HTN, systolic CHF, and HLD, cute on chronic systolic CHF exacerbation: Continue treat CHF exac per protocol, input and output, IV Lasix, monitor lab, follow-up results of echocardiogram, has discussed with apron worker, continue iv lasix, start RIKKI inhibitor if patient able to tolerate, oxygen as needed, Treat for constipation Treated for UTI, f/u urine culture results we find out the patient is PCP in [facility], we are still trying to get outside medical record. Per cardiology patient may have LHC done outside this hospital, will pay attention to the medical record GI and DVT prophylaxis is covered PT OT evaluation and treatment as marriage and family social worker will discharge. Continued [facility] stay due to: multiple IV medications needed Discharge planning: home
--- NOTE | 2017-12-16 15:14 | Cardiology Follow-Up ---
Subjective Date of Service: Dec 16, 2017. Pt evaluation today including: conversation w/ patient, physical exam, chart review, lab review, review of studies, review of inpatient medication list History of Present Illness This morning patient claims to be feeling well. She states she had some all over discomfort and took some Tylenol for relief. Her legs continue to be firm in swollen. She is able to tolerate a diet. She has not been out of bed. She denies any significant breathing trouble but has some dryness in her nose. Social History Smoking Status: Current Every Day Smoker History of Alcohol Use: Yes (wine occasionally) Review of Systems Respiratory: + cough, + shortness of breath, + dyspnea on exertion, No sputum, No wheezing, No dyspnea at rest, No hemoptysis Cardiac: + edema, No chest pain, No orthopnea, No PND, No claudication, No palpitations Per HPI. No recent history of fevers or chills. Objective Vital Signs Past 12 Hours Date Time Temp Pulse Resp B/P (MAP) Pulse Ox O2 Delivery O2 Flow Rate FiO2 12/16/17 12:21 36.7 76 21 117/71 (86) 96 Nasal Cannula 2.0 12/16/17 12:00 Nasal Cannula 2.0 12/16/17 08:23 37.0 74 23 114/86 (95) 94 Room Air 12/16/17 08:00 95 Nasal Cannula 2.0 12/16/17 04:00 Nasal Cannula 2.0 12/16/17 03:57 36.8 79 18 116/78 (91) 95 Nasal Cannula 2.0 Last Recorded Weight-Kilograms: 97.500 Intake & Output 8-Hour Column 12/16/17 12/17/17 12/17/17 16:00 00:00 08:00 Intake Total 90 ml Output Total 1000 ml Balance -910 ml 24-Hour Column 12/17/17 08:00 Intake Total 90 ml Output Total 1000 ml Balance -910 ml Physical Exam She is alert and oriented x3. Mood affect appear normal. She answered all questions appropriately. HEENT: Sclerae are anicteric. Pupils are equal and reactive to light and accommodation. Extraocular movements were intact. Neuro: Cranial nerves intact Neck: Examination of the submandibular region did not reveal any significant lymphadenopathy. Carotids are palpable bilaterally and free of bruits on auscultation. There was no evidence of jugular venous distention. The thyroid was not enlarged. Lungs: Lungs are clear to auscultation bilaterally but she had poor overall excursion and breath sounds were distant. There are no rales wheezes or rhonchi. She has normal respiratory effort without use of accessory muscles. There is normal pulmonary excursion. Cardiac: The rhythm was regular with frequent ectopy. S1 and S2 were normal. There are no murmurs on examination. The PMI was not markedly displaced on palpation. Abdomen: The abdomen was soft and nontender. Extremities: Patient has bilateral radial pulses that are equal in intensity. There is no evidence cyanosis or clubbing. She has severe lower extremity edema to the hips. Skin: There are no rashes noted on examination today, but some erythema involving lower extremities. Data Laboratory Results: Last 24 Hours Test 12/15/17 21:59 12/16/17 01:33 12/16/17 07:06 Creatine Kinase MB 3.0 ng/ml Creatine Kinase MB Ratio Troponin I 0.027 ng/ml Potassium Level 3.2 mmol/L 3.5 mmol/L Magnesium Level 1.6 mg/dl 2.2 mg/dl White Blood Count 11.21 K/uL Red Blood Count 3.70 M/uL Hemoglobin 10.9 g/dL Hematocrit 32.9 % Mean Corpuscular Volume 88.9 fL Mean Corpuscular Hemoglobin 29.5 pg Mean Corpuscular Hemoglobin Concent 33.1 g/dl RDW Standard Deviation 46.1 fL RDW Coefficient of Variation 14.1 % Platelet Count 209 K/uL Mean Platelet Volume 8.5 fL Sodium Level 132 mmol/L Chloride Level 95 mmol/L Carbon Dioxide Level 32 mmol/L Anion Gap 5.0 mmol/L Blood Urea Nitrogen 13 mg/dl Creatinine 0.76 mg/dl Est Creatinine Clear Calc Drug Dose 91.4 ml/min Estimated GFR () 92.8 Estimated GFR (Non- 80.0 BUN/Creatinine Ratio 16.9 Random Glucose 103 mg/dl Calcium Level 8.0 mg/dl Triglycerides Level 36 mg/dl Cholesterol Level 63 mg/dl HDL Cholesterol 29 mg/dl LDL Cholesterol, Calculated 27 mg/dl VLDL Cholesterol, Calculated 7 mg/dl Cholesterol/HDL Ratio 2.2 Telemetry reviewed: Sinus rhythm with frequent ventricular ectopy and very brief runs of ventricular tachycardia lasting a few beats. Assessment and Plan 1. Edema: She still has significant edema. Nearly anasarca. She diuresed quite well yesterday on her current diuretic regimen which should be continued. Electrolytes and renal function appears to be stable. 2. Cardiomyopathy: Echocardiogram is pending for today. She is on a beta- alis and Pj inhibition was started today. Will monitor her renal function and pressure and titrate his medications as tolerated. She reports having had a cardiac catheterization in [place]. We are waiting these results. 3. Hypertension: Hopefully we can discontinue her hydralazine and increase her doses of carvedilol and lisinopril over the next few days 4. Valvular heart disease: Mild to moderate mitral regurgitation previously. Current echocardiogram pending.
[2017-12-16] MEDS: ATORVASTATIN 40 MG TAB PO SCH (20:12)
[2017-12-17] VITALS (11 sets, daily range): BP systolic 99–135; BP diastolic 57–80; PULSE 73–84; TEMP 36.5–37.4; O2SAT 90–98
[2017-12-17] MEDS: ACETAMINOPHEN 325 MG TAB PO PRN ×3 (00:42→17:27)
[2017-12-17 05:45] LABS: HEMATOCRIT 34.4 % (37-47); HEMOGLOBIN 11.2 g/dL (12.0-16.0); MEAN CELL VOLUME 89.6 fL (80-100); MEAN CORPUSCULAR HEMOGLOBIN 29.2 pg (25-34); MEAN CORPUSCULAR HGB CONC 32.6 g/dl (32-36); MEAN PLATELET VOLUME 8.1 fL (7.4-10.4); PLATELET COUNT 218 K/uL (130-400); RED CELL DISTRIBUTION WIDTH CV 14.2 % (11.5-14.5); WHITE BLOOD COUNT 10.91 K/uL (4.8-10.8)
[2017-12-17 06:27] LABS: CALCIUM 8.1 mg/dl (8.5-10.1); CREATININE 0.71 mg/dl (0.60-1.20); POTASSIUM 3.4 mmol/L (3.5-5.1)
[2017-12-17] MEDS ORDERED: POTASSIUM CHLORIDE 10 MEQ TABCR PO STA (07:32)
[2017-12-17] MEDS: CEFTRIAXONE SOD INJ 1 GM in DEXTROSE 5% ADD-VANTAGE 50ML 50 ML IV SCH (09:28)
[2017-12-17] MEDS: ISOSORBIDE MONONITRATE 30 MG TABCR PO SCH (09:28)
[2017-12-17] MEDS: CARVEDILOL 6.25 MG TAB PO SCH ×2 (09:29→17:25)
[2017-12-17] MEDS: FUROSEMIDE INJ 40 MG in SYRINGE 0 ML IV SCH ×2 (09:31→21:18)
[2017-12-17] MEDS: ASPIRIN 81 MG ECTAB PO SCH (09:32)
[2017-12-17] MEDS: PANTOprazole SOD 40 MG TAB PO SCH (09:32)
[2017-12-17] MEDS: LISINOPRIL 5 MG TAB PO SCH (09:33)
[2017-12-17] MEDS: HEPARIN SOD 5000 UNIT/0.5 ML CARP SQ SCH ×2 (09:34→21:20)
[2017-12-17] MEDS: NICOTINE 7 MG/24 HR TDSY TD SCH (09:35)
--- NOTE | 2017-12-17 13:03 | Progress Note ---
Subjective Date of Service: Dec 17, 2017. Subjective Pt evaluation today including: conversation w/ patient, physical exam, chart review, lab review, review of studies, conversation w/ wellness consultant, review of inpatient medication list Generally feeling better, has good urine output, eating well, no low back pain is better, denies dysuria urgency and frequency, denies fever and chills Report generalized weakness not able to out of bed to chair Problem List Medical Problems: (1) Anasarca Status: Acute (2) Bilateral leg edema Status: Acute (3) CHF (congestive heart failure) Status: Acute (4) CHF (congestive heart failure) Status: Acute (5) Congestive heart failure Status: Acute (6) Elevated bilirubin Status: Acute (7) Hyponatremia Status: Acute (8) Infestation by bed bug Status: Acute (9) UTI (urinary tract infection) Status: Acute Review of Systems Constitutional: + weakness, + fatigue, No fever, No chills, No sweats, No weight loss, No problem reported Eyes: No worsening of vision, No eye pain, No redness, No discharge, No diplopia ENT: No hearing loss, No unusual epistaxis, No nasal symptoms, No sore throat, No tinnitus, No dental problems, No trouble swallowing Respiratory: + cough, + sputum, + shortness of breath, No wheezing, No dyspnea on exertion, No dyspnea at rest, No hemoptysis Cardiac: + edema, No chest pain, No orthopnea, No claudication, No palpitations Abdomen: No pain, No nausea, No vomiting, No diarrhea, No constipation Musculoskeletal: No joint pain, No muscle pain, No swelling, No calf pain Female : No dysuria, No urinary frequency, No hematuria, No incontinence, No abnormal vaginal bleeding, No vaginal discharge Neurologic: No memory loss, No paralysis, No weakness, No numbness/tingling, No vertigo, No balance problems Psychiatric: No depression symptoms, No anhedonism, No anxiety, No insomnia, No substance abuse Heme: No abnormal bleeding/bruising, No clotting problems, No swollen lymph nodes, No night sweats Endo: + fatigue, No excessive thirst, No excessive urination Skin: No rash, No itch, No new/changing skin lesions, No color change, No bleeding Objective Vital Signs Date Time Temp Pulse Resp B/P (MAP) Pulse Ox O2 Delivery O2 Flow Rate FiO2 12/17/17 12:00 95 Nasal Cannula 2.0 12/17/17 11:39 36.7 73 20 99/57 (71) 96 Nasal Cannula 2.0 12/17/17 08:00 95 Nasal Cannula 2.0 12/17/17 07:45 36.5 84 16 124/79 (94) 96 Nasal Cannula 2.0 12/17/17 07:41 37.1 74 20 121/74 (90) 98 Nasal Cannula 3.0 12/17/17 04:00 Nasal Cannula 2.5 12/17/17 03:30 36.8 78 25 123/74 (90) 94 Nasal Cannula 2.0 12/17/17 00:01 Nasal Cannula 2.5 12/16/17 23:46 36.9 80 20 113/71 (85) 95 Nasal Cannula 2.5 12/16/17 20:00 95 Nasal Cannula 2.0 12/16/17 18:56 37.1 86 25 119/68 (85) 93 Nasal Cannula 3.0 12/16/17 16:00 96 Nasal Cannula 2.0 12/16/17 15:30 36.9 76 20 129/76 (93) 99 Nasal Cannula 2.0 Physical Exam General Appearance: WD/WN, no apparent distress, + thin, + pertinent finding ( Frail and chronically ill looking) Eyes: normal inspection, PERRL, EOMI, sclerae normal ENT: normal ENT inspection, hearing grossly normal, pharynx normal Neck: supple, no adenopathy, thyroid normal, no JVD, no carotid bruits, trachea midline Respiratory/Chest: chest non-tender, normal breath sounds, no respiratory distress, no accessory muscle use, + decreased breath sounds, + wheezing Cardiovascular: regular rate, rhythm, no gallop, no JVD, no murmur Abdomen: normal bowel sounds, non tender, soft, no organomegaly, no pulsatile mass Extremities: normal range of motion, non-tender, normal inspection, no pedal edema, no calf tenderness, normal capillary refill, pelvis stable, + swelling ( Is better but still 2+) Neurologic/Psychiatric: 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 health outreach 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 II-XII nml as tested, no motor/sensory deficits, alert, normal mood/affect, oriented x 3 Skin: normal color, warm/dry, no rash Lymphatic: no adenopathy Laboratory Results Last 24 Hours Test 12/17/17 05:25 White Blood Count 10.91 K/uL Red Blood Count 3.84 M/uL Hemoglobin 11.2 g/dL Hematocrit 34.4 % Mean Corpuscular Volume 89.6 fL Mean Corpuscular Hemoglobin 29.2 pg Mean Corpuscular Hemoglobin Concent 32.6 g/dl RDW Standard Deviation 47.0 fL RDW Coefficient of Variation 14.2 % Platelet Count 218 K/uL Mean Platelet Volume 8.1 fL Sodium Level 132 mmol/L Potassium Level 3.4 mmol/L Chloride Level 94 mmol/L Carbon Dioxide Level 32 mmol/L Anion Gap 6.0 mmol/L Blood Urea Nitrogen 12 mg/dl Creatinine 0.71 mg/dl Est Creatinine Clear Calc Drug Dose 95.4 ml/min Estimated GFR () 100.7 Estimated GFR (Non- 86.9 BUN/Creatinine Ratio 16.7 Random Glucose 91 mg/dl Calcium Level 8.1 mg/dl Magnesium Level 1.9 mg/dl Assessment and Plan 67-year-old -[place] female, admitted with acute on chronic systolic CHF exacerbation, with history of CHF and cardiomyopathy, hyponatremia, possible UTI, Bed bugs with possible poor personal hygiene, and constipation: PMHx of HTN, systolic CHF, and HLD, acute on chronic systolic CHF exacerbation: Stable improving, 5 L negative output associated with 5 kg weight loss, echo still not done yet Continue treat CHF exac per protocol, input and output, IV Lasix, monitor lab, follow-up results of echocardiogram, has discussed with waiter/waitress formal, continue iv lasix, start RIKKI inhibitor if patient able to tolerate, oxygen as needed, continue Coreg, Imdur and lisinopril , decrease lisinopril to 2.5 mg p.o. daily because patient blood pressure was borderline low constipation , improved and resolved has 2 bowel movement today UTI with gardnerella like bacteria, possible gardnerella vaginalis uti, feel it is not themselves uropathogenic, will discontinue antibiotic Generalized weakness, legally blind with history of gout, which is not new, continue PT OT patient agreed to rehab we found out the patient 's waiter/waitress formal is in [facility] Dr. Jen Pritchard in [place], [phone] [id number] . However patient declined to sign a consent to get medical record, even after talking to her in detail regarding benefit for better of her past medical history, will be helpful to make decision for the care plan, however patient declined to sign consent GI and DVT prophylaxis is covered Continue PT OT patient agreed to go to rehab Continued [facility] stay due to: multiple IV medications needed Discharge planning: home
--- NOTE | 2017-12-17 16:11 | ECHOCARDIOGRAM REPORT ---
*NOTICE TO RECEIVING CONSTITUTION PARTY AGENCY This information is strictly Confidential and protected under [place] law. [place] law prohibits you from making any further disclosure of this information unless further disclosure is expressly permitted by the written consent of the person to whom it pertains or is authorized by law. A general authorization for the release of medical or other information is not sufficient for this purpose. Hospital accepts no responsibility if the information is made available to any other person, INCLUDING THE PATIENT. Interpretation Summary * Conclusions -- * The left ventricle is borderline dilated. * There is moderate concentric left ventricular hypertrophy. * Left ventricular systolic function is mildly reduced. * There is evidence of restrictive diastolic filling * There is mild to moderate right ventricular hypertrophy. * The left atrium is severely dilated. * The right atrium is moderately dilated. * Aortic valve sclerosis moderate, without significant aortic valvular stenosis. * Right ventricular systolic pressure is elevated at 50-60mmHg. * The inferior vena cava is severely dilated. * Compared to study from 2015, the pulmonary pressures are slightly higher, the LV systolic function is slightly better. Procedure Details * A complete two-dimensional transthoracic echocardiogram was performed (2D, M-mode, Doppler and color flow Doppler). Left Ventricle * The left ventricle is borderline dilated. * There is moderate concentric left ventricular hypertrophy. * Left ventricular systolic function is mildly reduced. * Ejection Fraction = 40-45%. * There is evidence of restrictive diastolic filling * There is mild global hypokinesis of the left ventricle. Right Ventricle * The right ventricle is normal in size and function. * There is mild to moderate right ventricular hypertrophy. Atria * The left atrium is severely dilated. * The right atrium is moderately dilated. Mitral Valve * The mitral valve anatomy is normal. * There is trace mitral regurgitation. Tricuspid Valve * The tricuspid valve is not well visualized, but is grossly normal. * There is mild tricuspid regurgitation. * Right ventricular systolic pressure is elevated at 50-60mmHg. Aortic Valve * Aortic valve sclerosis moderate, without significant aortic valvular stenosis. * No hemodynamically significant valvular aortic stenosis. * There is no significant aortic regurgitation. Great Vessels * The aortic root is normal size. Pericardium/Pleural * There is no pericardial effusion. Great Vessels * The inferior vena cava is severely dilated. MMode 2D Measurements and Calculations IVSd 1.6 cm IVSs 1.7 cm LVIDd 5.4 cm LVIDs 4.6 cm LVPWd 1.8 cm LVPWs 1.7 cm IVS/LVPW 0.91 FS 14.9 % EDV(Teich) 140.3 ml ESV(Teich) 96.4 ml EF(Teich) 31.3 % EDV(cubed) 156.1 ml ESV(cubed) 96.2 ml EF(cubed) 38.4 % % IVS thick 6.3 % % LVPW thick -3.78 % LV mass(C)d 443.6 grams LV mass(C)dI 204.8 grams/m\S\2 LV mass(C)s 356.6 grams LV mass(C)sI 164.6 grams/m\S\2 SV(Teich) 43.9 ml SI(Teich) 20.3 ml/m\S\2 SV(cubed) 59.9 ml SI(cubed) 27.6 ml/m\S\2 Ao root diam 2.7 cm Ao root area 5.9 cm\S\2 ACS 2.0 cm LA dimension 5.1 cm LA/Ao 1.8 LVOT diam 1.9 cm LVOT area 2.9 cm\S\2 LVAd ap4 22.5 cm\S\2 LVLd ap4 5.3 cm EDV(MOD-sp4) 77.0 ml EDV(sp4-el) 80.8 ml LVAs ap4 13.7 cm\S\2 LVLs ap4 4.4 cm ESV(MOD-sp4) 35.0 ml ESV(sp4-el) 36.2 ml EF(MOD-sp4) 54.5 % EF(sp4-el) 55.2 % SV(MOD-sp4) 42.0 ml SI(MOD-sp4) 19.4 ml/m\S\2 SV(sp4-el) 44.6 ml SI(sp4-el) 20.6 ml/m\S\2 Doppler Measurements and Calculations MV E max celia 144.0 cm/sec MV A max celia 83.6 cm/sec MV E/A 1.7 MV P1/2t max celia 143.2 cm/sec MV P1/2t 48.0 msec MVA(P1/2t) 4.6 cm\S\2 MV dec slope 873.2 cm/sec\S\2 MV dec time 0.19 sec Ao V2 max 157.3 cm/sec Ao max PG 9.9 mmHg Ao max PG (full) 3.0 mmHg SHIRA(V,A) 2.4 cm\S\2 SHIRA(V,D) 2.4 cm\S\2 LV V1 max PG 6.9 mmHg LV V1 max 131.0 cm/sec MR max celia 424.0 cm/sec MR max PG 71.9 mmHg PA V2 max 99.2 cm/sec PA max PG 3.9 mmHg TR max celia 302.2 cm/sec
[2017-12-17] MEDS: ATORVASTATIN 40 MG TAB PO SCH (21:18)
[2017-12-18] VITALS (8 sets, daily range): BP systolic 104–128; BP diastolic 62–86; PULSE 72–82; TEMP 36.6–37; O2SAT 93–98
[2017-12-18] MEDS: ACETAMINOPHEN 325 MG TAB PO PRN ×4 (00:05→21:00)
[2017-12-18 06:36] LABS: HEMATOCRIT 34.8 % (37-47); HEMOGLOBIN 11.1 g/dL (12.0-16.0); MEAN CELL VOLUME 93.5 fL (80-100); MEAN CORPUSCULAR HEMOGLOBIN 29.8 pg (25-34); MEAN CORPUSCULAR HGB CONC 31.9 g/dl (32-36); MEAN PLATELET VOLUME 8.4 fL (7.4-10.4); PLATELET COUNT 234 K/uL (130-400); RED CELL DISTRIBUTION WIDTH CV 14.3 % (11.5-14.5); RED CELL DISTRIBUTION WIDTH SD 47.9 fL (36.4-46.3); WHITE BLOOD COUNT 9.58 K/uL (4.8-10.8)
[2017-12-18 07:10] LABS: CALCIUM 8.2 mg/dl (8.5-10.1); CREATININE 0.66 mg/dl (0.60-1.20); PHOSPHORUS 2.6 mg/dl (2.5-4.9); POTASSIUM 3.5 mmol/L (3.5-5.1)
[2017-12-18] MEDS: LISINOPRIL 5 MG TAB PO SCH (07:55)
[2017-12-18] MEDS: ASPIRIN 81 MG ECTAB PO SCH (07:56)
[2017-12-18] MEDS: PANTOprazole SOD 40 MG TAB PO SCH (07:56)
[2017-12-18] MEDS: ISOSORBIDE MONONITRATE 30 MG TABCR PO SCH (07:56)
[2017-12-18] MEDS: FUROSEMIDE INJ 40 MG in SYRINGE 0 ML IV SCH ×2 (07:57→20:52)
[2017-12-18] MEDS: CARVEDILOL 6.25 MG TAB PO SCH ×2 (07:57→16:48)
[2017-12-18] MEDS: HEPARIN SOD 5000 UNIT/0.5 ML CARP SQ SCH ×2 (08:01→21:00)
[2017-12-18] MEDS: NICOTINE 7 MG/24 HR TDSY TD SCH (08:16)
--- NOTE | 2017-12-18 11:27 | Cardiology Follow-Up ---
Subjective Date of Service: Dec 18, 2017. Pt evaluation today including: conversation w/ patient, physical exam, chart review, lab review, review of studies History of Present Illness The patient claims to be feeling well. She denies any breathing difficulty. She is proud of herself that she still has the size the bed today. She continues to have heavy legs and some difficulty with ambulation. She does not report pain. Social History Smoking Status: Current Every Day Smoker History of Alcohol Use: Yes (wine occasionally) Review of Systems Respiratory: + cough, + sputum, + shortness of breath, No wheezing, No dyspnea on exertion, No dyspnea at rest, No hemoptysis Cardiac: + edema, No chest pain, No orthopnea, No claudication, No palpitations Per HPI. No recent history of fevers or chills. Objective Vital Signs Past 12 Hours Date Time Temp Pulse Resp B/P (MAP) Pulse Ox O2 Delivery O2 Flow Rate FiO2 12/18/17 08:00 96 Nasal Cannula 2.0 12/18/17 07:45 36.6 75 18 117/86 (96) 98 Nasal Cannula 2.0 12/18/17 04:00 Nasal Cannula 3.0 12/18/17 03:33 36.9 78 20 115/73 (87) 98 Nasal Cannula 3.0 12/18/17 00:00 96 Nasal Cannula 2.0 12/17/17 23:40 36.8 82 22 115/74 (88) 96 Room Air Last Recorded Weight-Kilograms: 90.800 Physical Exam She is alert and oriented x3. Mood affect appear normal. She answered all questions appropriately. HEENT: Sclerae are anicteric. Pupils are equal and reactive to light and accommodation. Extraocular movements were intact. Neuro: Cranial nerves intact Neck: Examination of the submandibular region did not reveal any significant lymphadenopathy. Carotids are palpable bilaterally and free of bruits on auscultation. There was no evidence of jugular venous distention. The thyroid was not enlarged. Lungs: Lungs are clear to auscultation bilaterally but she had poor overall excursion and breath sounds were distant. There are no rales wheezes or rhonchi. She has normal respiratory effort without use of accessory muscles. There is normal pulmonary excursion. Cardiac: The rhythm was regular with frequent ectopy. S1 and S2 were normal. There are no murmurs on examination. The PMI was not markedly displaced on palpation. Abdomen: The abdomen was soft and nontender. Extremities: Patient has bilateral radial pulses that are equal in intensity. There is no evidence cyanosis or clubbing. She has severe lower extremity edema to the hips. Skin: There are no rashes noted on examination today, but some erythema involving lower extremities. Data Laboratory Results: Last 24 Hours Test 12/18/17 05:57 White Blood Count 9.58 K/uL Red Blood Count 3.72 M/uL Hemoglobin 11.1 g/dL Hematocrit 34.8 % Mean Corpuscular Volume 93.5 fL Mean Corpuscular Hemoglobin 29.8 pg Mean Corpuscular Hemoglobin Concent 31.9 g/dl RDW Standard Deviation 47.9 fL RDW Coefficient of Variation 14.3 % Platelet Count 234 K/uL Mean Platelet Volume 8.4 fL Sodium Level 134 mmol/L Potassium Level 3.5 mmol/L Chloride Level 96 mmol/L Carbon Dioxide Level 33 mmol/L Anion Gap 5.0 mmol/L Blood Urea Nitrogen 14 mg/dl Creatinine 0.66 mg/dl Est Creatinine Clear Calc Drug Dose 101.8 ml/min Estimated GFR () 104.5 Estimated GFR (Non- 90.1 BUN/Creatinine Ratio 21.1 Random Glucose 77 mg/dl Calcium Level 8.2 mg/dl Phosphorus Level 2.6 mg/dl Magnesium Level 1.9 mg/dl Telemetry reviewed: Sinus rhythm with frequent ectopy Echocardiogram obtained yesterday demonstrated do still LV systolic function with an estimated ejection fraction 45 percent. Assessment and Plan 1. Edema: She continues to have significant edema. She is diuresing quite well on her current diuretic regimen. No evidence of renal dysfunction or electrolyte abnormality. I will continue her current dose and monitor her response 2. Cardiomyopathy: Ejection fraction is actually slightly better than that obtained in 2015. He likely has a significant element of diastolic dysfunction causing her exacerbation as well. She would benefit from continuation of her beta-alis and increased dose of Pj inhibitor. I think it blood pressure limits increased doses of PJ-inhibitor we should eliminate her hydralazine instead. She does describe having had a cardiac catheterization in [place]. We are attempting to obtain those records but the patient is resistant. I do not feel that she requires any urgent intervention in any other respect. At this point will continue aggressive medical therapy with diuretics, beta- blockers and Pj inhibitors. 3. Hypertension: Hopefully we can discontinue her hydralazine and increase her doses of carvedilol and lisinopril over the next few days 4. Valvular heart disease: No significant valvular disease on most recent echocardiogram
--- NOTE | 2017-12-18 11:35 | Hospitalist Progress Note ---
Hospitalist Progress Note Date of Service Dec 18, 2017. Subjective Pt evaluation today including: conversation w/ patient, physical exam, lab review, review of studies, review of inpatient medication list Voiding: clark catheter in place Patient resting in bed. Feeling well. Eating and drinking OK. Swelling continues to improve. +generalized weakness- improving. Patient denies any fever, chills, sweats, lightheadedness, dizziness, vision changes, CP, palpitations, SOB, wheezing, cough, abdominal pain, nausea, vomiting, diarrhea, urinary symptoms, melena, numbness/tingling, muscle/joint pain, anxiety/depression, active bleeding, or new skin discoloration/changes. Medications Current Inpatient Medications Medications (Trade) Dose Ordered Sig/Yady Route Start Time Stop Time Status Last Admin Dose Admin Ioversol (Optiray 320) 100 ml UD PRN IV 12/15/17 07:00 12/19/17 06:59 Heparin Sodium (Porcine) (Heparin Sq 5000 Unit/0.5ml) 5,000 unit Q12 SQ 12/15/17 21:00 01/14/18 20:59 12/18/17 08:01 5,000 UNIT Acetaminophen (Tylenol Tab) 650 mg Q4H PRN PO 12/15/17 09:30 01/14/18 09:29 12/18/17 08:17 650 MG Al Hydrox/Mg Hydrox/Simethicone (Maalox Max Susp) 15 ml Q4H PRN PO 12/15/17 09:30 01/14/18 09:29 12/15/17 16:42 15 ML Magnesium Hydroxide (Milk Of Magnesia Susp) 30 ml Q12H PRN PO 12/15/17 09:30 01/14/18 09:29 Ondansetron HCl (Zofran Inj) 4 mg Q6H PRN IV 12/15/17 09:30 01/14/18 09:29 Nitroglycerin (Nitrostat Tab) 0.4 mg UD PRN SL 12/15/17 09:30 01/14/18 09:29 Morphine Sulfate (MoRPHine SULFATE INJ) 2 mg Q30M PRN IV 12/15/17 09:30 12/29/17 09:29 Polyethylene (Miralax Powder Packet) 17 gm DAILY PRN PO 12/15/17 09:30 3/28/18 09:29 Aspirin (Ecotrin Tab) 81 mg DAILY PO 12/16/17 09:00 01/15/18 08:59 12/18/17 07:56 81 MG Atorvastatin Calcium (Lipitor Tab) 40 mg HS PO 12/15/17 21:00 01/14/18 20:59 12/17/17 21:18 40 MG Carvedilol (Coreg Tab) 6.25 mg BIDM PO 12/15/17 16:45 01/14/18 17:59 12/18/17 07:57 6.25 MG Hydralazine HCl (Apresoline Tab) 25 mg Q8 PO 12/15/17 14:00 01/14/18 13:59 12/18/17 06:03 25 MG Isosorbide Mononitrate (Imdur Ext Rel Tab) 30 mg QAM PO 12/16/17 09:00 01/15/18 08:59 12/18/17 07:56 30 MG Furosemide 40 mg/ Syringe 4 ml @ 4 mls/min BID IV 12/15/17 21:00 01/14/18 20:59 12/18/17 07:57 4 MLS/MIN Pantoprazole Sodium (Protonix Tab) 40 mg QAM PO 12/16/17 09:00 12/20/17 08:59 12/18/17 07:56 40 MG Nicotine (Nicoderm Cq 7 Mg Patch) 1 patch QAM TD 12/15/17 12:00 01/14/18 11:59 Miscellaneous (Remove Nicoderm Patch) 1 ea HS N/A 12/15/17 21:00 01/14/18 20:59 Bisacodyl (Dulcolax Tab) 5 mg BID PRN PO 12/15/17 10:00 01/14/18 09:59 12/16/17 13:25 5 MG Bisacodyl (Dulcolax Supp) 10 mg DAILY PRN TX 12/16/17 12:15 01/15/18 12:14 Lisinopril (Zestril Tab) 2.5 mg QAM PO 12/18/17 09:00 01/15/18 08:59 12/18/17 07:55 2.5 MG Objective Vital Signs Date Time Temp Pulse Resp B/P (MAP) Pulse Ox O2 Delivery O2 Flow Rate FiO2 12/18/17 08:00 96 Nasal Cannula 2.0 12/18/17 07:45 36.6 75 18 117/86 (96) 98 Nasal Cannula 2.0 12/18/17 04:00 Nasal Cannula 3.0 12/18/17 03:33 36.9 78 20 115/73 (87) 98 Nasal Cannula 3.0 12/18/17 00:00 96 Nasal Cannula 2.0 12/17/17 23:40 36.8 82 22 115/74 (88) 96 Room Air 12/17/17 20:00 93 Nasal Cannula 2.0 12/17/17 19:08 37.4 84 16 135/80 (98) 97 Nasal Cannula 3.0 12/17/17 16:00 92 Nasal Cannula 2.0 12/17/17 15:30 36.9 83 18 113/66 (82) 90 Nasal Cannula 3.0 12/17/17 12:00 95 Nasal Cannula 2.0 12/17/17 11:39 36.7 73 20 99/57 (71) 96 Nasal Cannula 2.0 Physical Exam General Appearance: no apparent distress, + pertinent finding (O2 NC ) Eyes: normal inspection, PERRL ENT: hearing grossly normal Neck: supple Respiratory/Chest: lungs clear, no respiratory distress, no accessory muscle use, + decreased breath sounds (throughout ) Cardiovascular: regular rate, rhythm Abdomen: normal bowel sounds, non tender, soft Extremities: no calf tenderness, + swelling (+2 pitting edema to bilateral lower extremities ) Neurologic/Psychiatric: alert, normal mood/affect, oriented x 3 Skin: normal color, warm/dry, no rash Laboratory Results Last 24 Hours Test 12/18/17 05:57 White Blood Count 9.58 K/uL Red Blood Count 3.72 M/uL Hemoglobin 11.1 g/dL Hematocrit 34.8 % Mean Corpuscular Volume 93.5 fL Mean Corpuscular Hemoglobin 29.8 pg Mean Corpuscular Hemoglobin Concent 31.9 g/dl RDW Standard Deviation 47.9 fL RDW Coefficient of Variation 14.3 % Platelet Count 234 K/uL Mean Platelet Volume 8.4 fL Sodium Level 134 mmol/L Potassium Level 3.5 mmol/L Chloride Level 96 mmol/L Carbon Dioxide Level 33 mmol/L Anion Gap 5.0 mmol/L Blood Urea Nitrogen 14 mg/dl Creatinine 0.66 mg/dl Est Creatinine Clear Calc Drug Dose 101.8 ml/min Estimated GFR () 104.5 Estimated GFR (Non- 90.1 BUN/Creatinine Ratio 21.1 Random Glucose 77 mg/dl Calcium Level 8.2 mg/dl Phosphorus Level 2.6 mg/dl Magnesium Level 1.9 mg/dl Assessment and Plan Patient is a pleasant 67 y/o female, with PMHx of HTN, systolic CHF, and HLD, who presented to the ED because of fluid build up and urinary symptoms. Acute on chronic systolic CHF exacerbation: - Admit to tele for cardiac monitoring- no acute events - O2 protocol, wean as tolerated- does NOT have O2 supplement at home - Trend cardiac enzymes- negative - EKG QAM and PRN for chest pain - ECHO reviewed- EF 40-45% - IV Lasix 40 mg BID - Placed Clark- monitor I&Os and daily weights- negative 6.8L and -7kg - IV Morphine and Nitro PRN for chest pain - BCx x1- NG - Obtain outside records- patient refused consent - Consult cardiology, appreciate recommendations Hyponatremia, likely secondary to CHF- IMPROVING: IV Lasix as above Hypokalemia- RESOLVED: Replaced w/ PO KCL supplement- follow PRP and replace PRN Hypomagnesemia- RESOLVED: Replaced w/ IV Mag supplement Abnormal UA: IV Rocephin pending UCx- UCx w/ Gardnerella, Rocephin d/c'd Bed bugs: Isolation/contact precautions Constipation- RESOLVED: MiraLAX daily PRN + Dulcolax 5 mg BID PRN HTN, HLD: - Continue ASA 81 mg daily, Lipitor 40 mg HS, Coreg 6.25 mg BID, Imdur 30 mg daily, Hydralazine 25 mg TID - Lisinopril 2.5 mg daily added - Reviewed lipid panel Tobacco abuse: - Nicotine patch - Smoking cessation counselling Fatty liver on CT: Encourage healthy diet and exercise GI prophylaxis: Protonix daily DVT prophylaxis: Heparin SQ BID Code status: LEVEL I, FULL Dispo: Planning for rehab at discharge- PT/OT and CM following
[2017-12-18] MEDS: ATORVASTATIN 40 MG TAB PO SCH (20:52)
[2017-12-19] VITALS (8 sets, daily range): BP systolic 118–151; BP diastolic 70–115; PULSE 76–100; TEMP 36.5–37; O2SAT 94–99
[2017-12-19] MEDS: KETOROLAC TROMETHAMINE 15 MG/ML VIAL IV. ONE ×2 (02:10→02:40)
[2017-12-19] MEDS ORDERED: NURSING VERBAL MED ORDER ONE (02:15)
[2017-12-19 07:04] LABS: CALCIUM 8.7 mg/dl (8.5-10.1); CREATININE 0.76 mg/dl (0.60-1.20); POTASSIUM 3.8 mmol/L (3.5-5.1)
[2017-12-19] MEDS: FUROSEMIDE INJ 40 MG in SYRINGE 0 ML IV SCH ×2 (07:48→20:05)
[2017-12-19] MEDS: ASPIRIN 81 MG ECTAB PO SCH (07:48)
[2017-12-19] MEDS: CARVEDILOL 6.25 MG TAB PO SCH ×2 (07:49→16:17)
[2017-12-19] MEDS: PANTOprazole SOD 40 MG TAB PO SCH (07:49)
[2017-12-19] MEDS: ISOSORBIDE MONONITRATE 30 MG TABCR PO SCH (07:49)
[2017-12-19] MEDS: HEPARIN SOD 5000 UNIT/0.5 ML CARP SQ SCH ×2 (07:56→21:22)
[2017-12-19] MEDS: NICOTINE 7 MG/24 HR TDSY TD SCH (07:57)
[2017-12-19] MEDS: LISINOPRIL 5 MG TAB PO SCH (09:16)
[2017-12-19] MEDS: ACETAMINOPHEN 325 MG TAB PO PRN ×2 (12:05→17:30)
--- NOTE | 2017-12-19 14:40 | Progress Note ---
Subjective Date of Service: Dec 19, 2017. Subjective Pt evaluation today including: conversation w/ patient, physical exam, chart review, lab review, review of studies, conversation w/ procurement consultant, review of inpatient medication list Patient reported still has swelling edema in the lower abdomen and bilateral upper thighs, but generally is feeling better, some mild lower back pain which is chronic, bilateral lower extremity swelling is improving, has good urine output Problem List Medical Problems: (1) Anasarca Status: Acute (2) Bilateral leg edema Status: Acute (3) CHF (congestive heart failure) Status: Acute (4) CHF (congestive heart failure) Status: Acute (5) Congestive heart failure Status: Acute (6) Elevated bilirubin Status: Acute (7) Hyponatremia Status: Acute (8) Infestation by bed bug Status: Acute (9) UTI (urinary tract infection) Status: Acute Review of Systems Constitutional: No fever, No chills, No sweats, No weight loss, No weakness, No fatigue, No problem reported Eyes: No worsening of vision, No eye pain, No redness, No discharge, No diplopia ENT: No hearing loss, No unusual epistaxis, No nasal symptoms, No sore throat, No tinnitus, No dental problems, No trouble swallowing Respiratory: + cough, No sputum, No wheezing, No shortness of breath, No dyspnea on exertion, No dyspnea at rest, No hemoptysis Cardiac: + edema, No chest pain, No orthopnea, No PND, No claudication, No palpitations Abdomen: No pain, No nausea, No vomiting, No diarrhea, No constipation Musculoskeletal: + joint pain, No muscle pain, No swelling, No calf pain Female : No dysuria, No urinary frequency, No hematuria, No incontinence, No abnormal vaginal bleeding, No vaginal discharge Neurologic: No memory loss, No paralysis, No weakness, No numbness/tingling, No vertigo, No balance problems Psychiatric: No depression symptoms, No anhedonism, No anxiety, No insomnia, No substance abuse Heme: No abnormal bleeding/bruising, No clotting problems, No swollen lymph nodes, No night sweats Endo: No fatigue, No excessive thirst, No excessive urination Skin: No rash, No itch, No new/changing skin lesions, No color change, No bleeding Objective Vital Signs Date Time Temp Pulse Resp B/P (MAP) Pulse Ox O2 Delivery O2 Flow Rate FiO2 12/19/17 12:00 Nasal Cannula 2.0 95 12/19/17 11:52 36.6 76 24 118/70 (86) 97 12/19/17 08:01 36.6 78 20 136/73 (94) 94 12/19/17 08:00 Nasal Cannula 2.0 12/19/17 04:34 36.9 77 20 135/87 (103) 97 Nasal Cannula 2.0 12/19/17 04:00 Nasal Cannula 2.0 12/18/17 23:59 Nasal Cannula 2.0 12/18/17 23:33 36.7 80 19 125/79 (94) 96 Nasal Cannula 2.0 12/18/17 20:00 Nasal Cannula 2.0 12/18/17 19:44 36.6 82 20 128/76 (93) 93 Nasal Cannula 2.0 12/18/17 16:00 Nasal Cannula 2.0 12/18/17 15:28 36.6 73 20 120/71 (87) 97 Room Air Physical Exam General Appearance: WD/WN, no apparent distress, + thin, + pertinent finding ( Frail chronically ill looking, possible poor nutrition) Eyes: normal inspection, PERRL, EOMI, sclerae normal ENT: normal ENT inspection, hearing grossly normal, pharynx normal Neck: supple, no adenopathy, thyroid normal, no JVD, no carotid bruits, trachea midline Respiratory/Chest: chest non-tender, normal breath sounds, no respiratory distress, no accessory muscle use, + decreased breath sounds, + wheezing ( Occasional) Cardiovascular: regular rate, rhythm, no gallop, no JVD, no murmur, + pertinent finding (Bilateral lower extremity swelling is better, however no abdomen and bilateral thighs still significant swelling) Abdomen: normal bowel sounds, non tender, soft, no organomegaly, no pulsatile mass Extremities: normal range of motion, non-tender, normal inspection, no pedal edema, no calf tenderness, normal capillary refill, pelvis stable Neurologic/Psychiatric: jig and fixture repairer II-XII nml as tested, no motor/sensory deficits, alert, normal mood/affect, oriented x 3 Skin: normal color, warm/dry, no rash Lymphatic: no adenopathy Laboratory Results Last 24 Hours Test 12/19/17 06:14 Sodium Level 133 mmol/L Potassium Level 3.8 mmol/L Chloride Level 94 mmol/L Carbon Dioxide Level 34 mmol/L Anion Gap 5.0 mmol/L Blood Urea Nitrogen 15 mg/dl Creatinine 0.76 mg/dl Est Creatinine Clear Calc Drug Dose 88.3 ml/min Estimated GFR () 92.8 Estimated GFR (Non- 80.0 BUN/Creatinine Ratio 19.2 Random Glucose 88 mg/dl Calcium Level 8.7 mg/dl Assessment and Plan 67-year-old -[place] female, admitted with acute on chronic systolic CHF exacerbation, with history of CHF and cardiomyopathy, hyponatremia, possible UTI, Bed bugs with possible poor personal hygiene, and constipation: PMHx of HTN, systolic CHF, and HLD, acute on chronic systolic CHF exacerbation: Stable improving, 11 L negative output associated with 7 kg weight loss, Echocardiogram: LVEF 45% Continue treat CHF exac per protocol, input and output, IV Lasix, monitor lab, has discussed with tax commissioner, continue iv lasix, start RIKKI inhibitor if patient able to tolerate, oxygen as needed, continue Coreg, Imdur and lisinopril , has decreased lisinopril to 2.5 mg p.o. daily because patient blood pressure was borderline low constipation: Resolved UTI with gardnerella like bacteria, possible gardnerella vaginalis uti, feel it is not themselves uropathogenic, will discontinue antibiotic Generalized weakness, legally blind with history of gout, which is not new, continue PT OT patient agreed to rehab we found out the patient 's tax commissioner is in [facility] Dr. Jen Pritchard in [place], [phone] . However patient declined to sign a consent to get medical record, even after talking to her in detail regarding benefit for better of her past medical history, will be helpful to make decision for the care plan, however patient declined to sign consent GI and DVT prophylaxis is covered MedSurg, possible discharge on Friday Continue PT OT patient agreed to go to rehab Continued [facility] stay due to: multiple IV medications needed Discharge planning: rehab hospital
[2017-12-19] MEDS ORDERED: CARVEDILOL 3.125 MG TAB PO ONE (18:30)
[2017-12-19] MEDS: ATORVASTATIN 40 MG TAB PO SCH (21:24)
--- NOTE | 2017-12-19 21:24 | Cardiology Follow-Up ---
Subjective Date of Service: Dec 19, 2017. Pt evaluation today including: conversation w/ patient, physical exam, lab review, review of studies, review of inpatient medication list History of Present Illness No new complaints today. Breathing appears to be stable. She was little more mobile today. She continues to have swelling of lower extremities and feels her legs are heavy.. Social History Smoking Status: Current Every Day Smoker History of Alcohol Use: Yes (wine occasionally) Review of Systems Respiratory: + cough, No sputum, No wheezing, No shortness of breath, No dyspnea on exertion, No dyspnea at rest, No hemoptysis Cardiac: + edema, No chest pain, No orthopnea, No PND, No claudication, No palpitations Per HPI. No recent history of fevers or chills. Objective Vital Signs Past 12 Hours Date Time Temp Pulse Resp B/P (MAP) Pulse Ox O2 Delivery O2 Flow Rate FiO2 12/19/17 19:29 Nasal Cannula 2.0 12/19/17 19:09 96 122/86 (98) 12/19/17 16:10 36.5 100 20 151/115 (127) 97 Nasal Cannula 2.0 12/19/17 16:06 36.6 76 24 97 3.0 12/19/17 12:00 Nasal Cannula 2.0 95 12/19/17 11:52 36.6 76 24 118/70 (86) 97 Last Recorded Weight-Kilograms: 90.400 Intake & Output 8-Hour Column 12/19/17 12/20/17 12/20/17 16:00 00:00 08:00 Intake Total 140 ml Output Total 450 ml Balance -310 ml 24-Hour Column 12/20/17 08:00 Intake Total 140 ml Output Total 450 ml Balance -310 ml Physical Exam She is alert and oriented x3. Mood affect appear normal. She answered all questions appropriately. HEENT: Sclerae are anicteric. Pupils are equal and reactive to light and accommodation. Extraocular movements were intact. Neuro: Cranial nerves intact Neck: Examination of the submandibular region did not reveal any significant lymphadenopathy. Carotids are palpable bilaterally and free of bruits on auscultation. There was no evidence of jugular venous distention. The thyroid was not enlarged. Lungs: Lungs are clear to auscultation bilaterally but she had poor overall excursion and breath sounds were distant. There are no rales wheezes or rhonchi. She has normal respiratory effort without use of accessory muscles. There is normal pulmonary excursion. Cardiac: The rhythm was regular with frequent ectopy. S1 and S2 were normal. There are no murmurs on examination. The PMI was not markedly displaced on palpation. Abdomen: The abdomen was soft and nontender. Extremities: Patient has bilateral radial pulses that are equal in intensity. There is no evidence cyanosis or clubbing. She has severe lower extremity edema to the hips. Skin: There are no rashes noted on examination today, but some erythema involving lower extremities. Data Laboratory Results: Last 24 Hours Test 12/19/17 06:14 Sodium Level 133 mmol/L Potassium Level 3.8 mmol/L Chloride Level 94 mmol/L Carbon Dioxide Level 34 mmol/L Anion Gap 5.0 mmol/L Blood Urea Nitrogen 15 mg/dl Creatinine 0.76 mg/dl Est Creatinine Clear Calc Drug Dose 88.3 ml/min Estimated GFR () 92.8 Estimated GFR (Non- 80.0 BUN/Creatinine Ratio 19.2 Random Glucose 88 mg/dl Calcium Level 8.7 mg/dl Telemetry reviewed: Sinus rhythm with occasional PVCs Assessment and Plan 1. Edema: She is diuresing quite well on her current regimen. No notable derangement in her renal function or electrolytes. She still has a significant amount of fluid which will require continued diuresis. I think we can continue her current regimen until she loses several more pounds. At which point we could consider switching her to an oral regimen and monitor her for continued diuresis. 2. Cardiomyopathy: Ejection fraction only mildly reduced. She is on increasing dose of carvedilol which is appropriate. Would advocate increasing her dose of lisinopril perhaps eliminating her hydralazine. 3. Hypertension: Hopefully we can discontinue her hydralazine and increase her doses of carvedilol and lisinopril over the next few days 4. Valvular heart disease: No significant valvular disease on most recent echocardiogram Dr. Anderson and will be the cardiology attending for the weekend. Please address any concerns or questions regarding her care to him if necessary.
[2017-12-20] VITALS (7 sets, daily range): BP systolic 113–132; BP diastolic 67–83; PULSE 79–94; TEMP 37.2–38.9; O2SAT 95–97
[2017-12-20] MEDS: ACETAMINOPHEN 325 MG TAB PO PRN ×3 (00:05→15:04)
[2017-12-20 07:27] LABS: CREATININE 0.81 mg/dl (0.60-1.20); POTASSIUM 3.8 mmol/L (3.5-5.1)
[2017-12-20] MEDS: NICOTINE 7 MG/24 HR TDSY TD SCH (08:00)
[2017-12-20] MEDS: CARVEDILOL 6.25 MG TAB PO SCH ×2 (08:09→17:07)
[2017-12-20] MEDS: LISINOPRIL 5 MG TAB PO SCH (08:09)
[2017-12-20] MEDS: ASPIRIN 81 MG ECTAB PO SCH (08:09)
[2017-12-20] MEDS: ISOSORBIDE MONONITRATE 30 MG TABCR PO SCH (08:09)
[2017-12-20] MEDS: HEPARIN SOD 5000 UNIT/0.5 ML CARP SQ SCH ×2 (08:12→21:09)
[2017-12-20] MEDS: FUROSEMIDE INJ 40 MG in SYRINGE 0 ML IV SCH ×2 (10:02→19:54)
[2017-12-20] MEDS: PANTOprazole SOD 40 MG TAB PO SCH (10:02)
[2017-12-20] MEDS: ATORVASTATIN 40 MG TAB PO SCH (21:08)
[2017-12-21] VITALS (8 sets, daily range): BP systolic 127–164; BP diastolic 72–108; PULSE 72–95; TEMP 37.4–39; O2SAT 94–98
--- NOTE | 2017-12-21 00:13 | Progress Note ---
Subjective Date of Service: Dec 20, 2017. Subjective Pt evaluation today including: conversation w/ patient, physical exam, chart review, lab review, review of studies, review of inpatient medication list Voiding: clark catheter in place Pt is seen ans examined by me. Pt denies cp, sob, dizziness, palpitation ,nausea , vomiting and diarrhea.. Problem List Medical Problems: (1) Anasarca Status: Acute (2) Bilateral leg edema Status: Acute (3) CHF (congestive heart failure) Status: Acute (4) CHF (congestive heart failure) Status: Acute (5) Congestive heart failure Status: Acute (6) Elevated bilirubin Status: Acute (7) Hyponatremia Status: Acute (8) Infestation by bed bug Status: Acute (9) UTI (urinary tract infection) Status: Acute Review of Systems All Other Systems: Reviewed and Negative Medications Medications (Trade) Dose Ordered Sig/Yady Route Start Time Stop Time Status Last Admin Dose Admin Carvedilol (Coreg Tab) 9.375 mg BIDM PO 12/20/17 08:00 01/14/18 17:59 12/20/17 17:07 9.375 MG Objective Vital Signs Date Time Temp Pulse Resp B/P (MAP) Pulse Ox O2 Delivery O2 Flow Rate FiO2 12/20/17 21:06 37.5 84 130/83 (99) 12/20/17 19:53 79 118/72 (87) 12/20/17 17:05 86 127/74 (91) 12/20/17 16:06 37.3 12/20/17 16:00 Nasal Cannula 3.0 12/20/17 15:27 38.9 94 20 132/80 (97) 95 Nasal Cannula 4.0 12/20/17 08:25 Nasal Cannula 2.0 12/20/17 07:33 37.2 86 18 120/67 (84) 97 Nasal Cannula 4.0 12/20/17 06:31 113/72 (86) 12/19/17 23:40 Nasal Cannula 4.0 Physical Exam Comments: HEENT: Sclerae are anicteric. Pupils are equal and reactive to light and accommodation. Extraocular movements were intact. Neuro: Cranial nerves intact Neck: No evidence of jugular venous distention. The thyroid was not enlarged. Lungs: Lungs are clear to auscultation bilaterally but she had poor overall excursion and breath sounds were distant. There are no rales wheezes or rhonchi. She has normal respiratory effort without use of accessory muscles. There is normal pulmonary excursion. Cardiac: regular with S1 and S2 were normal. There are no murmurs on examination. . Abdomen: soft and nontender. Extremities: She has severe lower extremity edema to the hips. Skin: no rashes . Laboratory Results Last 24 Hours Test 12/20/17 06:40 Sodium Level 132 mmol/L Potassium Level 3.8 mmol/L Chloride Level 91 mmol/L Carbon Dioxide Level 34 mmol/L Anion Gap 7.0 mmol/L Blood Urea Nitrogen 18 mg/dl Creatinine 0.81 mg/dl Est Creatinine Clear Calc Drug Dose 82.8 ml/min Estimated GFR () 85.9 Estimated GFR (Non- 74.1 BUN/Creatinine Ratio 22.3 Random Glucose 87 mg/dl Calcium Level 9.0 mg/dl Magnesium Level 1.8 mg/dl Pro-B-Type Natriuretic Peptide 18343 pg/ml Assessment and Plan 67-year-old -Togolese female, admitted with acute on chronic systolic CHF exacerbation, with history of CHF and cardiomyopathy, hyponatremia, possible UTI, Bed bugs with possible poor personal hygiene, and constipation: Edema: diuresing quite well on her current regimen. No notable derangement in her renal function or electrolytes. She still has a significant amount of fluid which will require continued diuresis. Cardiomyopathy: Ejection fraction only mildly reduced. She is on increasing dose of carvedilol which is appropriate. discontinue hydralazine. 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 Jen Pritchard in [place], [phone] . However patient declined to sign a consent to get medical record, even after talking to her in detail regarding benefit for better of her past medical history, will be helpful to make decision for the care plan, however patient declined to sign consent GI and DVT prophylaxis is covered MedSur, possible discharge on Friday Continued [facility] stay due to: multiple IV medications needed Discharge planning: rehab hospital
[2017-12-21 06:51] LABS: CALCIUM 8.7 mg/dl (8.5-10.1); CREATININE 0.8 mg/dl (0.60-1.20); POTASSIUM 3.5 mmol/L (3.5-5.1)
[2017-12-21] MEDS: NICOTINE 7 MG/24 HR TDSY TD SCH (08:00)
[2017-12-21] MEDS: FUROSEMIDE INJ 40 MG in SYRINGE 0 ML IV SCH ×2 (08:09→20:16)
[2017-12-21] MEDS: CARVEDILOL 6.25 MG TAB PO SCH ×2 (08:10→17:10)
[2017-12-21] MEDS: LISINOPRIL 5 MG TAB PO SCH (08:10)
[2017-12-21] MEDS: ASPIRIN 81 MG ECTAB PO SCH (08:10)
[2017-12-21] MEDS: ISOSORBIDE MONONITRATE 30 MG TABCR PO SCH (08:10)
[2017-12-21] MEDS: HEPARIN SOD 5000 UNIT/0.5 ML CARP SQ SCH ×2 (08:11→21:05)
--- NOTE | 2017-12-21 12:58 | Progress Note ---
Subjective Date of Service: Dec 21, 2017. Subjective Pt evaluation today including: conversation w/ patient, physical exam, chart review, lab review, review of inpatient medication list Pain: no pain Voiding: clark catheter in place patient is seen and examined by me.Pt is c/o of cough and denies samantha other complains at this time. Problem List Medical Problems: (1) Anasarca Status: Acute (2) Bilateral leg edema Status: Acute (3) CHF (congestive heart failure) Status: Acute (4) CHF (congestive heart failure) Status: Acute (5) Congestive heart failure Status: Acute (6) Elevated bilirubin Status: Acute (7) Hyponatremia Status: Acute (8) Infestation by bed bug Status: Acute (9) UTI (urinary tract infection) Status: Acute Review of Systems Constitutional: + fatigue, No fever, No chills, No sweats Respiratory: + cough, No sputum, No wheezing, No shortness of breath Abdomen: No pain, No nausea, No vomiting, No diarrhea Psychiatric: No depression symptoms Objective Vital Signs Date Time Temp Pulse Resp B/P (MAP) Pulse Ox O2 Delivery O2 Flow Rate FiO2 12/21/17 07:35 37.6 81 18 136/85 (102) 94 Nasal Cannula 4.0 12/21/17 07:30 Nasal Cannula 3.0 12/21/17 03:07 37.4 143/90 (107) 12/21/17 00:34 37.9 95 20 164/108 (126) 96 4.0 12/21/17 00:00 Nasal Cannula 4.0 12/20/17 21:06 37.5 84 130/83 (99) 12/20/17 19:53 79 118/72 (87) 12/20/17 17:05 86 127/74 (91) 12/20/17 16:06 37.3 12/20/17 16:00 Nasal Cannula 3.0 12/20/17 15:27 38.9 94 20 132/80 (97) 95 Nasal Cannula 4.0 Physical Exam General Appearance: WD/WN, no apparent distress Eyes: normal inspection, EOMI ENT: + pertinent finding (legally blind) Neck: supple, no adenopathy Respiratory/Chest: chest non-tender, lungs clear, no respiratory distress Cardiovascular: regular rate, rhythm, no edema, no murmur Abdomen: normal bowel sounds, soft Extremities: + pertinent finding (1 + edema bolateral LE) Neurologic/Psychiatric: no motor/sensory deficits, alert, normal mood/affect, oriented x 3, + pertinent finding Skin: no rash Lymphatic: no adenopathy Laboratory Results Last 24 Hours Test 12/21/17 06:02 Sodium Level 131 mmol/L Potassium Level 3.5 mmol/L Chloride Level 90 mmol/L Carbon Dioxide Level 35 mmol/L Anion Gap 6.0 mmol/L Blood Urea Nitrogen 21 mg/dl Creatinine 0.80 mg/dl Est Creatinine Clear Calc Drug Dose 83.8 ml/min Estimated GFR () 87.2 Estimated GFR (Non- 75.2 BUN/Creatinine Ratio 25.7 Random Glucose 90 mg/dl Calcium Level 8.7 mg/dl Assessment and Plan 67-year-old -Uzbek female, admitted with acute on chronic systolic CHF exacerbation, with history of CHF and cardiomyopathy, hyponatremia, possible UTI, Bed bugs with possible poor personal hygiene, and constipation: Edema: improved, diuresing quite well on her current regimen. No notable derangement in her renal function or electrolytes. She still has a significant amount of fluid which will require continued diuresis. Continue lasix 40 mg iv bid for now. replace K as needed. Cardiomyopathy: Ejection fraction only mildly reduced. She is on increasing dose of carvedilol which is appropriate. discontinue hydralazine. 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 Jne Pritchard in [place], [phone] . However patient declined to sign a consent to get medical record, even after talking to her in detail regarding benefit for better of her past medical history, will be helpful to make decision for the care plan, however patient declined to sign consent GI and DVT prophylaxis is covered MedSurg, possible discharge on Friday Continued [facility] stay due to: multiple IV medications needed Discharge planning: rehab hospital
[2017-12-21] MEDS: ACETAMINOPHEN 325 MG TAB PO PRN ×2 (13:13→22:36)
[2017-12-21] MEDS: GUAIFENESIN/DEXTROM SYRUP 100MG/10MG 5ML UDC PO PRN (17:07)
[2017-12-21] MEDS: ATORVASTATIN 40 MG TAB PO SCH (21:09)
[2017-12-22] VITALS (8 sets, daily range): BP systolic 115–147; BP diastolic 70–84; PULSE 67–93; TEMP 36.8–37.6; O2SAT 94–98
[2017-12-22] MEDS: GUAIFENESIN/DEXTROM SYRUP 100MG/10MG 5ML UDC PO PRN ×2 (02:34→20:48)
[2017-12-22] MEDS: ACETAMINOPHEN 325 MG TAB PO PRN ×2 (05:57→20:49)
[2017-12-22] MEDS: NICOTINE 7 MG/24 HR TDSY TD SCH (08:00)
[2017-12-22] MEDS: CARVEDILOL 6.25 MG TAB PO SCH ×2 (08:25→17:09)
[2017-12-22] MEDS: FUROSEMIDE INJ 40 MG in SYRINGE 0 ML IV SCH (08:25)
[2017-12-22] MEDS: ISOSORBIDE MONONITRATE 30 MG TABCR PO SCH (08:26)
[2017-12-22] MEDS: ASPIRIN 81 MG ECTAB PO SCH (08:26)
[2017-12-22] MEDS: GUAIFENESIN 600 MG TABCR PO SCH ×2 (08:27→20:47)
[2017-12-22] MEDS: LISINOPRIL 5 MG TAB PO SCH (08:27)
[2017-12-22] MEDS: HEPARIN SOD 5000 UNIT/0.5 ML CARP SQ SCH ×2 (08:30→20:55)
[2017-12-22 09:30] LABS: HEMATOCRIT 38.6 % (37-47); HEMOGLOBIN 12.4 g/dL (12.0-16.0); MEAN CELL VOLUME 92.6 fL (80-100); MEAN CORPUSCULAR HEMOGLOBIN 29.7 pg (25-34); MEAN CORPUSCULAR HGB CONC 32.1 g/dl (32-36); MEAN PLATELET VOLUME 8.3 fL (7.4-10.4); PLATELET COUNT 166 K/uL (130-400); RED CELL DISTRIBUTION WIDTH CV 15.1 % (11.5-14.5); RED CELL DISTRIBUTION WIDTH SD 50.6 fL (36.4-46.3); WHITE BLOOD COUNT 6.13 K/uL (4.8-10.8)
[2017-12-22 09:54] LABS: CALCIUM 8.6 mg/dl (8.5-10.1); CREATININE 0.81 mg/dl (0.60-1.20); POTASSIUM 2.9 mmol/L (3.5-5.1)
--- NOTE | 2017-12-22 09:57 | Hospitalist Progress Note ---
Hospitalist Progress Note Date of Service Dec 22, 2017. Subjective Pt evaluation today including: conversation w/ patient, physical exam, chart review, lab review, review of studies, review of inpatient medication list Patient seen and evaluated. Febrile overnight. Reporting cough x 2 days. States cough is now becoming more productive. States she does not feel well in general. Gives minimal details on symptoms. Mostly states she is fatigued and tired. Not getting good sleep. States she mostly doesn't feel SOB but states "we made her nervous" given all the fluid on her and that is why she is still needing oxygen. Still with significant edema extending to her thighs. States she feels it in her abdomen as well. Shelton is draining dark orange urine. However there is some pink tinge to the tubing and question of some traumatic minor bleeding. Constitutional: + fever, + weakness (generalized), + fatigue, No chills Respiratory: + cough, + sputum, No shortness of breath Cardiovascular: No chest pain Abdomen: No pain, No nausea, No vomiting, No diarrhea, No constipation Musculoskeletal: + swelling (improving b/l lower extremities), No calf pain Female : No dysuria Heme: No abnormal bleeding/bruising Skin: No itch Medications Current Inpatient Medications Medications (Trade) Dose Ordered Sig/Yady Route Start Time Stop Time Status Last Admin Dose Admin Heparin Sodium (Porcine) (Heparin Sq 5000 Unit/0.5ml) 5,000 unit Q12 SQ 12/15/17 21:00 01/14/18 20:59 12/22/17 08:30 5,000 UNIT Acetaminophen (Tylenol Tab) 650 mg Q4H PRN PO 12/15/17 09:30 01/14/18 09:29 12/22/17 05:57 650 MG Al Hydrox/Mg Hydrox/Simethicone (Maalox Max Susp) 15 ml Q4H PRN PO 12/15/17 09:30 01/14/18 09:29 12/15/17 16:42 15 ML Magnesium Hydroxide (Milk Of Magnesia Susp) 30 ml Q12H PRN PO 12/15/17 09:30 01/14/18 09:29 Ondansetron HCl (Zofran Inj) 4 mg Q6H PRN IV 12/15/17 09:30 01/14/18 09:29 Nitroglycerin (Nitrostat Tab) 0.4 mg UD PRN SL 2/26/18 09:30 01/14/18 09:29 Morphine Sulfate (MoRPHine SULFATE INJ) 2 mg Q30M PRN IV 12/15/17 09:30 12/29/17 09:29 Polyethylene (Miralax Powder Packet) 17 gm DAILY PRN PO 12/15/17 09:30 01/14/18 09:29 Aspirin (Ecotrin Tab) 81 mg DAILY PO 12/16/17 09:00 01/15/18 08:59 12/22/17 08:26 81 MG Atorvastatin Calcium (Lipitor Tab) 40 mg HS PO 12/15/17 21:00 01/14/18 20:59 12/21/17 21:09 40 MG Hydralazine HCl (Apresoline Tab) 25 mg Q8 PO 12/15/17 14:00 01/14/18 13:59 12/22/17 05:56 25 MG Isosorbide Mononitrate (Imdur Ext Rel Tab) 30 mg QAM PO 12/16/17 09:00 01/15/18 08:59 12/22/17 08:26 30 MG Furosemide 40 mg/ Syringe 4 ml @ 4 mls/min BID IV 12/15/17 21:00 01/14/18 20:59 12/22/17 08:25 4 MLS/MIN Nicotine (Nicoderm Cq 7 Mg Patch) 1 patch QAM TD 12/15/17 12:00 01/14/18 11:59 Miscellaneous (Remove Nicoderm Patch) 1 ea HS N/A 12/15/17 21:00 01/14/18 20:59 12/19/17 21:22 1 EA Bisacodyl (Dulcolax Tab) 5 mg BID PRN PO 12/15/17 10:00 01/14/18 09:59 12/16/17 13:25 5 MG Bisacodyl (Dulcolax Supp) 10 mg DAILY PRN NV 12/16/17 12:15 01/15/18 12:14 Lisinopril (Zestril Tab) 2.5 mg QAM PO 12/18/17 09:00 01/15/18 08:59 12/22/17 08:27 2.5 MG Carvedilol (Coreg Tab) 9.375 mg BIDM PO 12/20/17 08:00 01/14/18 17:59 12/22/17 08:25 9.375 MG Guaifenesin/ Dextromethorphan (Robitussin-Dm Syrup) 5 ml Q6H PRN PO 12/21/17 13:00 01/20/18 12:59 12/22/17 02:34 5 ML Guaifenesin (Mucinex Contr Rel Tab) 600 mg Q12H PO 12/22/17 09:00 01/21/18 08:59 12/22/17 08:27 600 MG Objective Vital Signs Date Time Temp Pulse Resp B/P (MAP) Pulse Ox O2 Delivery O2 Flow Rate FiO2 12/22/17 07:05 37.3 73 18 147/84 (105) 96 4.0 12/22/17 06:04 93 20 95 Nasal Cannula 4.0 Humidified Oxygen 12/22/17 04:54 36.8 12/22/17 00:27 37.6 12/21/17 23:45 Nasal Cannula 4.0 12/21/17 23:05 39.0 80 20 149/85 (106) 98 2.0 12/21/17 21:07 72 149/88 (108) 12/21/17 20:14 72 127/72 (90) 12/21/17 17:09 72 143/89 (107) 12/21/17 16:00 Nasal Cannula 4.0 Humidified Oxygen 12/21/17 15:02 37.4 82 18 127/78 (94) 97 Nasal Cannula 3.0 Physical Exam General Appearance: no apparent distress ENT: hearing grossly normal Neck: supple, no JVD, trachea midline Respiratory/Chest: no respiratory distress, no accessory muscle use, + pertinent finding (Not taking significant breaths to fully assess lungs - largely sound diminished without adventitious sounds) Cardiovascular: regular rate, rhythm, no murmur Abdomen: normal bowel sounds, non tender, soft Extremities: + pertinent finding (1+ pitting edema b/l lower extremities extending into thighs) Neurologic/Psychiatric: alert Skin: normal color, + pertinent finding (legs dry and flaking b/l) Laboratory Results Last 24 Hours Test 12/22/17 09:08 White Blood Count 6.13 K/uL Red Blood Count 4.17 M/uL Hemoglobin 12.4 g/dL Hematocrit 38.6 % Mean Corpuscular Volume 92.6 fL Mean Corpuscular Hemoglobin 29.7 pg Mean Corpuscular Hemoglobin Concent 32.1 g/dl RDW Standard Deviation 50.6 fL RDW Coefficient of Variation 15.1 % Platelet Count 166 K/uL Mean Platelet Volume 8.3 fL Assessment and Plan 67-year-old -Scottish female, admitted with acute on chronic systolic CHF exacerbation, with history of CHF and cardiomyopathy, hyponatremia, possible UTI, Bed bugs with possible poor personal hygiene, and constipation: Acute on Chronic Systolic CHF: -Currently at a -18.8 L diuresis; she does appear to have continued fluid retention in her lower extremities and evidence on CXR obtained today however urine at this point is very dark and concentrated and will hold diuresis at this time - Imdur 30 mg daily -Cardiology following -appreciate recommendations Fever/Cough and Possible UTI: -Initial urine culture only revealed in gardnerella -CXR obtained today with no findings of infiltrate -has spiked intermittent fevers since holding antibiotics -Given the concentrated look of her urine will obtain another UA and culture and resume Rocephin 1 g IV daily HTN: -Recommendations given for increasing BB and ACEI and D/C of Hydralazine - Continue current Coreg of 9.375 mg BID; Increased Lisinopril to 5 mg daily and likely can advance further; Hydralazine D/C'd Cardiomyopathy - Restrictive Diastolic Filling: Sarcoid/Amyloid? 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 Jen Pritchard - [phone] Disposition: - Plan for [facility] on D/C - hopeful D/C next 2-3 days - Will need 2 step - is still requiring supplemental O2 which may be from pulm htn given findings on echo? Continued [facility] stay due to: multiple IV medications needed Discharge planning: rehab hospital
--- NOTE | 2017-12-22 10:07 | DIAGNOSTIC IMAGING REPORT ---
CHEST ONE VIEW PORTABLE CLINICAL HISTORY: 67 years-old Female presenting with Dyspnea. TECHNIQUE: Portable upright AP view of the chest was obtained. COMPARISON: 12/15/2017. FINDINGS: Atherosclerosis of aortic arch. Cardiac silhouette enlarged. Heterogeneity of lung markings. Mild pulmonary vascular prominence. Mild hyperinflation. No large effusion or pneumothorax. Osseous structures normal. IMPRESSION: 1. Heterogeneity of lung parenchyma with mild hyperinflation could imply underlying emphysema. No superimposed focal infiltrate. 2. Cardiomegaly with mild volume overload. No david pulmonary edema. Electronically signed by: Glen Joy M.D. 12/22/2017 10:06 AM Dictated Date/Time: 12/22/2017 10:05 AM
[2017-12-22] MEDS ORDERED: POTASSIUM CHLORIDE 20 MEQ TABCR PO ONE (12:30)
[2017-12-22] MEDS ORDERED: ALBUT/IPRATROP 3MG/0.5MG NEB 3 ML VIAL INH PRN (17:15)
[2017-12-22 17:23] LABS: INFLUENZA B ANTIGEN Neg for Influ B (NEG)
[2017-12-22] MEDS ORDERED: CEFTRIAXONE SOD INJ 1,000 MG in DEXTROSE 5% 50ML 50 ML IV SCH (18:00)
[2017-12-22] MEDS: ALBUT/IPRATROP 3MG/0.5MG NEB 3 ML VIAL INH SCH (19:35)
[2017-12-22] MEDS: POTASSIUM CHLORIDE 20 MEQ TABCR PO SCH (20:47)
[2017-12-22] MEDS: ATORVASTATIN 40 MG TAB PO SCH (20:48)
[2017-12-23] VITALS (9 sets, daily range): BP systolic 114–128; BP diastolic 73–81; PULSE 67–74; TEMP 36.5–37; O2SAT 94–95; Ht 182.9 cm; Wt 83.2 kg
[2017-12-23] MEDS: ACETAMINOPHEN 325 MG TAB PO PRN ×3 (04:43→20:36)
[2017-12-23] MEDS: ALBUT/IPRATROP 3MG/0.5MG NEB 3 ML VIAL INH SCH ×4 (07:05→19:43)
[2017-12-23] MEDS: LISINOPRIL 5 MG TAB PO SCH (07:50)
[2017-12-23] MEDS: GUAIFENESIN 600 MG TABCR PO SCH ×2 (07:50→20:37)
[2017-12-23] MEDS: POTASSIUM CHLORIDE 20 MEQ TABCR PO SCH ×2 (07:51→20:37)
[2017-12-23] MEDS: ISOSORBIDE MONONITRATE 30 MG TABCR PO SCH (07:51)
[2017-12-23] MEDS: NICOTINE 7 MG/24 HR TDSY TD SCH (07:51)
[2017-12-23] MEDS: ASPIRIN 81 MG ECTAB PO SCH (07:51)
[2017-12-23] MEDS: CARVEDILOL 6.25 MG TAB PO SCH ×2 (07:51→16:44)
[2017-12-23] MEDS: HEPARIN SOD 5000 UNIT/0.5 ML CARP SQ SCH ×2 (08:02→20:36)
[2017-12-23 08:09] LABS: HEMATOCRIT 37.8 % (37-47); HEMOGLOBIN 11.7 g/dL (12.0-16.0); MEAN CELL VOLUME 93.1 fL (80-100); MEAN CORPUSCULAR HEMOGLOBIN 28.8 pg (25-34); MEAN PLATELET VOLUME 8.8 fL (7.4-10.4); PLATELET COUNT 132 K/uL (130-400); RED CELL DISTRIBUTION WIDTH CV 14.9 % (11.5-14.5); RED CELL DISTRIBUTION WIDTH SD 50.9 fL (36.4-46.3); WHITE BLOOD COUNT 5.37 K/uL (4.8-10.8)
[2017-12-23 08:39] LABS: CALCIUM 8.6 mg/dl (8.5-10.1); CREATININE 0.65 mg/dl (0.60-1.20); POTASSIUM 3.5 mmol/L (3.5-5.1)
[2017-12-23] MEDS ORDERED: FUROSEMIDE 40 MG TAB PO ONE (09:12)
--- NOTE | 2017-12-23 16:19 | Progress Note ---
Subjective Date of Service: Dec 23, 2017. Subjective Pt evaluation today including: conversation w/ patient, physical exam, lab review, review of inpatient medication list Pain: no pain PO Intake: adequate Voiding: clark catheter in place patient says that the Duonebs helped with cough, breathing better still with edema reviewed labs, Cr stable, K is now normal after holding Lasix discussed trying Zaroxolyn tomorrow, goal is to diurese further, get ready for rehab Problem List Medical Problems: (1) Anasarca Status: Acute (2) Bilateral leg edema Status: Acute (3) CHF (congestive heart failure) Status: Acute (4) CHF (congestive heart failure) Status: Acute (5) Congestive heart failure Status: Acute (6) Elevated bilirubin Status: Acute (7) Hyponatremia Status: Acute (8) Infestation by bed bug Status: Acute (9) UTI (urinary tract infection) Status: Acute Review of Systems Constitutional: + weakness, + fatigue Eyes: + problem reported (blind) Respiratory: + dyspnea on exertion Cardiac: + edema All Other Systems: Reviewed and Negative Medications Current Inpatient Medications Medications (Trade) Dose Ordered Sig/Yady Route Start Time Stop Time Status Last Admin Dose Admin Heparin Sodium (Porcine) (Heparin Sq 5000 Unit/0.5ml) 5,000 unit Q12 SQ 12/15/17 21:00 01/14/18 20:59 12/23/17 08:02 5,000 UNIT Acetaminophen (Tylenol Tab) 650 mg Q4H PRN PO 12/15/17 09:30 01/14/18 09:29 12/23/17 10:51 650 MG Al Hydrox/Mg Hydrox/Simethicone (Maalox Max Susp) 15 ml Q4H PRN PO 12/15/17 09:30 01/14/18 09:29 12/15/17 16:42 15 ML Magnesium Hydroxide (Milk Of Magnesia Susp) 30 ml Q12H PRN PO 12/15/17 09:30 01/14/18 09:29 Ondansetron HCl (Zofran Inj) 4 mg Q6H PRN IV 12/15/17 09:30 01/14/18 09:29 Nitroglycerin (Nitrostat Tab) 0.4 mg UD PRN SL 12/15/17 09:30 01/14/18 09:29 Morphine Sulfate (MoRPHine SULFATE INJ) 2 mg Q30M PRN IV 12/15/17 09:30 12/29/17 09:29 Polyethylene (Miralax Powder Packet) 17 gm DAILY PRN PO 12/15/17 09:30 01/14/18 09:29 Aspirin (Ecotrin Tab) 81 mg DAILY PO 12/16/17 09:00 01/15/18 08:59 12/23/17 07:51 81 MG Atorvastatin Calcium (Lipitor Tab) 40 mg HS PO 12/15/17 21:00 01/14/18 20:59 12/22/17 20:48 40 MG Isosorbide Mononitrate (Imdur Ext Rel Tab) 30 mg QAM PO 12/16/17 09:00 01/15/18 08:59 12/23/17 07:51 30 MG Nicotine (Nicoderm Cq 7 Mg Patch) 1 patch QAM TD 12/15/17 12:00 01/14/18 11:59 Miscellaneous (Remove Nicoderm Patch) 1 ea HS N/A 12/15/17 21:00 01/14/18 20:59 12/19/17 21:22 1 EA Bisacodyl (Dulcolax Tab) 5 mg BID PRN PO 12/15/17 10:00 01/14/18 09:59 12/16/17 13:25 5 MG Bisacodyl (Dulcolax Supp) 10 mg DAILY PRN [place] 12/16/17 12:15 01/15/18 12:14 Carvedilol (Coreg Tab) 9.375 mg BIDM PO 12/20/17 08:00 01/14/18 17:59 12/23/17 07:51 9.375 MG Guaifenesin/ Dextromethorphan (Robitussin-Dm Syrup) 5 ml Q6H PRN PO 12/21/17 13:00 01/20/18 12:59 12/22/17 20:48 5 ML Guaifenesin (Mucinex Contr Rel Tab) 600 mg Q12H PO 12/22/17 09:00 01/21/18 08:59 12/23/17 07:50 600 MG Potassium Chloride (Klor-Con Tab) 40 meq BID PO 12/22/17 20:00 01/21/18 19:59 12/23/17 07:51 40 MEQ Albuterol/ Ipratropium (Duoneb) 3 ml QIDR INH 12/22/17 20:00 01/21/18 19:59 12/23/17 15:25 3 ML Albuterol/ Ipratropium (Duoneb) 3 ml Q2H PRN INH 12/22/17 17:15 01/21/18 17:14 Lisinopril (Zestril Tab) 5 mg QAM PO 12/23/17 08:00 01/15/18 08:59 12/23/17 07:50 5 MG Furosemide (Lasix Tab) 40 mg BID17 PO 12/23/17 17:00 01/22/18 16:59 Cephalexin Monohydrate (Keflex Cap) 500 mg BID PO 12/23/17 20:00 12/28/17 19:59 Objective Vital Signs Date Time Temp Pulse Resp B/P (MAP) Pulse Ox O2 Delivery O2 Flow Rate FiO2 12/23/17 15:55 95 Room Air 3.0 95 12/23/17 15:54 36.5 67 20 122/77 (92) 95 Room Air 12/23/17 15:25 73 16 95 Nasal Cannula 3.0 12/23/17 11:15 67 18 94 Nasal Cannula 3.0 12/23/17 08:00 95 Nasal Cannula 3.0 12/23/17 07:05 70 18 95 Nasal Cannula 3.0 12/23/17 06:58 37.0 70 18 114/73 (87) 95 3.0 12/23/17 00:00 Nasal Cannula 4.0 12/22/17 23:28 37.1 71 18 129/76 (93) 94 3.0 12/22/17 19:36 68 16 98 Nasal Cannula 3.0 Physical Exam General Appearance: WD/WN, no apparent distress Eyes: normal inspection, EOMI, sclerae normal ENT: normal ENT inspection, hearing grossly normal, pharynx normal Neck: supple, no adenopathy, no JVD, trachea midline Respiratory/Chest: chest non-tender, lungs clear, normal breath sounds, no respiratory distress, no accessory muscle use Cardiovascular: regular rate, rhythm, no gallop, no JVD, no murmur Abdomen: normal bowel sounds, non tender, soft, no organomegaly Extremities: normal range of motion, non-tender, normal inspection, no calf tenderness, pelvis stable, + pedal edema (pitting edema to mid thigh) Neurologic/Psychiatric: waxer II-XII nml as tested, no motor/sensory deficits, alert, normal mood/affect, oriented x 3 Laboratory Results Last 24 Hours Test 12/23/17 07:43 White Blood Count 5.37 K/uL Red Blood Count 4.06 M/uL Hemoglobin 11.7 g/dL Hematocrit 37.8 % Mean Corpuscular Volume 93.1 fL Mean Corpuscular Hemoglobin 28.8 pg Mean Corpuscular Hemoglobin Concent 31.0 g/dl RDW Standard Deviation 50.9 fL RDW Coefficient of Variation 14.9 % Platelet Count 132 K/uL Mean Platelet Volume 8.8 fL Sodium Level 134 mmol/L Potassium Level 3.5 mmol/L Chloride Level 93 mmol/L Carbon Dioxide Level 37 mmol/L Anion Gap 4.0 mmol/L Blood Urea Nitrogen 18 mg/dl Creatinine 0.65 mg/dl Est Creatinine Clear Calc Drug Dose 94.3 ml/min Estimated GFR () 105.0 Estimated GFR (Non- 90.6 BUN/Creatinine Ratio 27.4 Random Glucose 83 mg/dl Calcium Level 8.6 mg/dl Magnesium Level 2.0 mg/dl Assessment and Plan 67-year-old -Greenlandic female, admitted with acute on chronic systolic CHF exacerbation, with history of CHF and cardiomyopathy, hyponatremia, possible UTI, Bed bugs with possible poor personal hygiene, and constipation: Acute on Chronic Systolic CHF: -Currently at a -19.4 L diuresis, weight down 14kg since admission - Imdur 30 mg daily - resumed Lasix 40mg PO BID, will give a dose of Zaroxolyn tomorrow AM for extra diuresis Fever/Cough and Possible UTI: -Initial urine culture only revealed gardnerella stopped Rocephin and then developed fever resumed Rocephin and no fever will change to Keflex to avoid unnecessary fluids - CXR clear of infiltrate Hypokalemia: certainly due to diuresis resolved with oral replacement, continue BID dosing HTN: -Recommendations given for increasing BB and ACEI and D/C of Hydralazine - Continue current Coreg of 9.375 mg BID; Increased Lisinopril to 5 mg daily, no need for further adjustment at this time, BP stable Cardiomyopathy - Restrictive Diastolic Filling: Sarcoid/Amyloid? 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 Jen Pritchard - [phone] Disposition: - Plan for [facility] on D/C - hopeful D/C next 2-3 days - will not need two step for [facility] Continued [facility] stay due to: multiple IV medications needed Discharge planning: rehab hospital
[2017-12-23] MEDS: FUROSEMIDE 40 MG TAB PO SCH (16:59)
[2017-12-23] MEDS: ATORVASTATIN 40 MG TAB PO SCH (20:37)
[2017-12-23] MEDS: CEPHALEXIN MONOHYDRATE 500 MG CAP PO SCH (20:38)
[2017-12-23] MEDS: GUAIFENESIN/DEXTROM SYRUP 100MG/10MG 5ML UDC PO PRN (20:39)
[2017-12-24] MEDS: ALUMINUM/MAGNESIUM/SIMETH (MAALOX MAX) 30 ML UDC PO PRN (00:35)
[2017-12-24] MEDS: GUAIFENESIN/DEXTROM SYRUP 100MG/10MG 5ML UDC PO PRN ×2 (04:26→23:17)
[2017-12-24] MEDS: ACETAMINOPHEN 325 MG TAB PO PRN ×4 (04:31→23:17)
[2017-12-24] MEDS: ALBUT/IPRATROP 3MG/0.5MG NEB 3 ML VIAL INH SCH (07:04)
[2017-12-24 07:05] VITALS: PULSE 69; O2SAT 96
[2017-12-24 07:15] LABS: HEMOGLOBIN 11.6 g/dL (12.0-16.0); MEAN CELL VOLUME 95.2 fL (80-100); MEAN CORPUSCULAR HEMOGLOBIN 30.7 pg (25-34); MEAN CORPUSCULAR HGB CONC 32.2 g/dl (32-36); PLATELET COUNT 112 K/uL (130-400); RED CELL DISTRIBUTION WIDTH CV 15.2 % (11.5-14.5); WHITE BLOOD COUNT 4.55 K/uL (4.8-10.8)
[2017-12-24] MEDS: ASPIRIN 81 MG ECTAB PO SCH (07:25)
[2017-12-24] MEDS: ISOSORBIDE MONONITRATE 30 MG TABCR PO SCH (07:25)
[2017-12-24] MEDS: METOLAZONE 5 MG TAB PO SCH (07:25)
[2017-12-24] MEDS: LISINOPRIL 5 MG TAB PO SCH (07:25)
[2017-12-24] MEDS: GUAIFENESIN 600 MG TABCR PO SCH ×2 (07:25→21:00)
[2017-12-24] MEDS: CEPHALEXIN MONOHYDRATE 500 MG CAP PO SCH ×2 (07:25→21:00)
[2017-12-24] MEDS: POTASSIUM CHLORIDE 20 MEQ TABCR PO SCH ×2 (07:26→21:00)
[2017-12-24] MEDS: CARVEDILOL 6.25 MG TAB PO SCH ×2 (07:26→16:37)
[2017-12-24] MEDS: NICOTINE 7 MG/24 HR TDSY TD SCH (07:26)
[2017-12-24] MEDS: HEPARIN SOD 5000 UNIT/0.5 ML CARP SQ SCH ×2 (07:28→21:08)
[2017-12-24 07:33] VITALS: BP 135/88; PULSE 69; TEMP 36.5; O2SAT 97
[2017-12-24 07:51] LABS: CALCIUM 8.4 mg/dl (8.5-10.1); CREATININE 0.62 mg/dl (0.60-1.20); POTASSIUM 3.9 mmol/L (3.5-5.1)
[2017-12-24] MEDS: FUROSEMIDE 40 MG TAB PO SCH ×2 (08:58→16:36)
[2017-12-24] MEDS ORDERED: ALBUT/IPRATROP 3MG/0.5MG NEB 3 ML VIAL INH PRN ×2 (09:30→10:00)
--- NOTE | 2017-12-24 14:24 | Hospitalist Progress Note ---
Hospitalist Progress Note Date of Service Dec 24, 2017. Subjective Pt evaluation today including: conversation w/ patient, physical exam, chart review, lab review, review of inpatient medication list Patient seen and evaluated. No acute events overnight. Currently diuresed for - 19.8 and appears to have more fluid to remove and may take awhile for this. Patient reports she feels weak with standing. Thinking it is from the swelling. Asked for a wheelchair to have given her visual deficits. Still would like to go to [facility]. Does express some anxiety about this being that it is a new facility but did encourage her that this will help her get back to her independency. Patient agrees. Cough is improving and remains productive. No fever/chills. Plan to continue [place] during [facility] admission and can wean O2. May even need this chronically. Constitutional: No fever, No chills Respiratory: + cough, No shortness of breath Cardiovascular: No chest pain Abdomen: No pain, No nausea, No vomiting, No diarrhea, No constipation Musculoskeletal: + swelling (b/l lower extremities up to thigh ), No calf pain Female : No dysuria Heme: No abnormal bleeding/bruising Endo: No fatigue Skin: No rash Medications Current Inpatient Medications Medications (Trade) Dose Ordered Sig/Yady Route Start Time Stop Time Status Last Admin Dose Admin Heparin Sodium (Porcine) (Heparin Sq 5000 Unit/0.5ml) 5,000 unit Q12 SQ 12/15/17 21:00 01/14/18 20:59 12/24/17 07:28 5,000 UNIT Acetaminophen (Tylenol Tab) 650 mg Q4H PRN PO 12/15/17 09:30 01/14/18 09:29 12/24/17 11:29 650 MG Al Hydrox/Mg Hydrox/Simethicone (Maalox Max Susp) 15 ml Q4H PRN PO 12/15/17 09:30 01/14/18 09:29 12/24/17 00:35 15 ML Magnesium Hydroxide (Milk Of Magnesia Susp) 30 ml Q12H PRN PO 12/15/17 09:30 01/14/18 09:29 Ondansetron HCl (Zofran Inj) 4 mg Q6H PRN IV 12/15/17 09:30 01/14/18 09:29 Nitroglycerin (Nitrostat Tab) 0.4 mg UD PRN SL 12/15/17 09:30 01/14/18 09:29 Morphine Sulfate (MoRPHine SULFATE INJ) 2 mg Q30M PRN IV 12/15/17 09:30 12/29/17 09:29 Polyethylene (Miralax Powder Packet) 17 gm DAILY PRN PO 12/15/17 09:30 01/14/18 09:29 Aspirin (Ecotrin Tab) 81 mg DAILY PO 12/16/17 09:00 01/15/18 08:59 12/24/17 07:25 81 MG Atorvastatin Calcium (Lipitor Tab) 40 mg HS PO 12/15/17 21:00 01/14/18 20:59 12/23/17 20:37 40 MG Isosorbide Mononitrate (Imdur Ext Rel Tab) 30 mg QAM PO 12/16/17 09:00 01/15/18 08:59 12/24/17 07:25 30 MG Nicotine (Nicoderm Cq 7 Mg Patch) 1 patch QAM TD 12/15/17 12:00 01/14/18 11:59 Miscellaneous (Remove Nicoderm Patch) 1 ea HS N/A 12/15/17 21:00 01/14/18 20:59 12/19/17 21:22 1 EA Bisacodyl (Dulcolax Tab) 5 mg BID PRN PO 12/15/17 10:00 01/14/18 09:59 12/16/17 13:25 5 MG Bisacodyl (Dulcolax Supp) 10 mg DAILY PRN DE 12/16/17 12:15 01/15/18 12:14 Carvedilol (Coreg Tab) 9.375 mg BIDM PO 12/20/17 08:00 01/14/18 17:59 12/24/17 07:26 9.375 MG Guaifenesin/ Dextromethorphan (Robitussin-Dm Syrup) 5 ml Q6H PRN PO 12/21/17 13:00 01/20/18 12:59 12/24/17 04:26 5 ML Guaifenesin (Mucinex Contr Rel Tab) 600 mg Q12H PO 12/22/17 09:00 01/21/18 08:59 12/24/17 07:25 600 MG Potassium Chloride (Klor-Con Tab) 40 meq BID PO 12/22/17 20:00 01/21/18 19:59 12/24/17 07:26 40 MEQ Lisinopril (Zestril Tab) 5 mg QAM PO 12/23/17 08:00 01/15/18 08:59 12/24/17 07:25 5 MG Furosemide (Lasix Tab) 40 mg BID17 PO 12/23/17 17:00 01/22/18 16:59 12/24/17 08:58 40 MG Cephalexin Monohydrate (Keflex Cap) 500 mg BID PO 12/23/17 20:00 12/28/17 19:59 12/24/17 07:25 500 MG Metolazone (Zaroxolyn Tab) 5 mg QAM@0830 PO 12/24/17 08:30 01/23/18 08:29 12/24/17 07:25 5 MG Albuterol/ Ipratropium (Duoneb) 3 ml Q4H PRN INH 12/24/17 10:00 01/23/18 09:59 Objective Vital Signs Date Time Temp Pulse Resp B/P (MAP) Pulse Ox O2 Delivery O2 Flow Rate FiO2 12/24/17 08:45 Nasal Cannula 3.0 12/24/17 07:33 36.5 69 18 135/88 (104) 97 Nasal Cannula 3.0 12/24/17 07:05 69 16 96 Nasal Cannula 3.0 12/24/17 00:10 Nasal Cannula 3.0 12/23/17 23:38 36.9 69 18 128/81 (97) 95 2.0 12/23/17 19:43 74 16 94 Nasal Cannula 3.0 12/23/17 15:55 95 Room Air 3.0 95 12/23/17 15:54 36.5 67 20 122/77 (92) 95 Room Air 12/23/17 15:25 73 16 95 Nasal Cannula 3.0 Physical Exam General Appearance: WD/WN, no apparent distress ENT: hearing grossly normal Neck: supple, no JVD, trachea midline Respiratory/Chest: lungs clear, no respiratory distress, no accessory muscle use, + decreased breath sounds (bases b/l) Cardiovascular: regular rate, rhythm Abdomen: normal bowel sounds, non tender, soft Extremities: + swelling (1+ pitting edema up to thighs; dry flaking skin) Neurologic/Psychiatric: alert Skin: normal color Laboratory Results Last 24 Hours Test 12/24/17 06:38 White Blood Count 4.55 K/uL Red Blood Count 3.78 M/uL Hemoglobin 11.6 g/dL Hematocrit 36.0 % Mean Corpuscular Volume 95.2 fL Mean Corpuscular Hemoglobin 30.7 pg Mean Corpuscular Hemoglobin Concent 32.2 g/dl RDW Standard Deviation 52.0 fL RDW Coefficient of Variation 15.2 % Platelet Count 112 K/uL Mean Platelet Volume 9.0 fL Sodium Level 135 mmol/L Potassium Level 3.9 mmol/L Chloride Level 96 mmol/L Carbon Dioxide Level 36 mmol/L Anion Gap 3.0 mmol/L Blood Urea Nitrogen 16 mg/dl Creatinine 0.62 mg/dl Est Creatinine Clear Calc Drug Dose 98.8 ml/min Estimated GFR () 106.6 Estimated GFR (Non- 92.0 BUN/Creatinine Ratio 25.7 Random Glucose 84 mg/dl Calcium Level 8.4 mg/dl Magnesium Level 2.0 mg/dl Assessment and Plan 67-year-old female, admitted with acute on chronic systolic CHF exacerbation, with history of CHF and cardiomyopathy, hyponatremia, possible UTI, Bed bugs with possible poor personal hygiene, and constipation: Acute on Chronic Systolic CHF: IMPROVING - Diuresed currently for a negative 19.8 L - Imdur 30 mg daily - Cardiology followed - appreciate recommendations Fever/Cough and Possible UTI: RESOLVED - Keflex 500 mg BID to complete full course HTN: - Recommendations given for increasing BB and ACEI and D/C of Hydralazine - Continue current Coreg of 9.375 mg BID; Increased Lisinopril to 5 mg daily; Hydralazine D/C'd Cardiomyopathy - Restrictive Diastolic Filling: Sarcoid/Amyloid? 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 Jen Pritchard - [phone] Disposition: - Plan for [facility] on D/C - discussed with patient and will D/C tomorrow - Can be D/C'd with [place] and O2 - recommendations for O2 wean vs two-step prior to D/C - may need chronic O2, she does have mild Pulm HTN on echo Continued [facility] stay due to: ambulation difficulties Discharge planning: rehab hospital
[2017-12-24 15:51] VITALS: BP 115/74; PULSE 66; TEMP 36.8; O2SAT 93
[2017-12-24] MEDS: ATORVASTATIN 40 MG TAB PO SCH (21:00)
[2017-12-24 23:57] VITALS: BP 130/77; PULSE 67; TEMP 36.7; O2SAT 95
[2017-12-25] MEDS: ACETAMINOPHEN 325 MG TAB PO PRN ×2 (03:32→10:51)
[2017-12-25 07:15] VITALS: BP 134/78; PULSE 64; TEMP 36.4; O2SAT 94
[2017-12-25 07:37] LABS: HEMATOCRIT 36.7 % (37-47); HEMOGLOBIN 12.2 g/dL (12.0-16.0); MEAN CELL VOLUME 96.6 fL (80-100); MEAN CORPUSCULAR HEMOGLOBIN 32.1 pg (25-34); MEAN CORPUSCULAR HGB CONC 33.2 g/dl (32-36); MEAN PLATELET VOLUME 9.8 fL (7.4-10.4); PLATELET COUNT 119 K/uL (130-400); RED CELL DISTRIBUTION WIDTH SD 50.9 fL (36.4-46.3); WHITE BLOOD COUNT 4.04 K/uL (4.8-10.8)
[2017-12-25] MEDS: NICOTINE 7 MG/24 HR TDSY TD SCH (08:00)
[2017-12-25 08:06] LABS: CALCIUM 8.4 mg/dl (8.5-10.1); CREATININE 0.69 mg/dl (0.60-1.20); POTASSIUM 3.7 mmol/L (3.5-5.1)
[2017-12-25] MEDS: CARVEDILOL 6.25 MG TAB PO SCH ×2 (08:12→16:26)
[2017-12-25] MEDS: ASPIRIN 81 MG ECTAB PO SCH (08:13)
[2017-12-25] MEDS: ISOSORBIDE MONONITRATE 30 MG TABCR PO SCH (08:13)
[2017-12-25] MEDS: METOLAZONE 5 MG TAB PO SCH (08:13)
[2017-12-25] MEDS: CEPHALEXIN MONOHYDRATE 500 MG CAP PO SCH (08:14)
[2017-12-25] MEDS: POTASSIUM CHLORIDE 20 MEQ TABCR PO SCH (08:14)
[2017-12-25] MEDS: GUAIFENESIN 600 MG TABCR PO SCH (08:14)
[2017-12-25] MEDS: FUROSEMIDE 40 MG TAB PO SCH ×2 (08:15→16:27)
[2017-12-25] MEDS: LISINOPRIL 5 MG TAB PO SCH (08:16)
[2017-12-25] MEDS: HEPARIN SOD 5000 UNIT/0.5 ML CARP SQ SCH (08:18)
[2017-12-25] MEDS ORDERED: LSX40 PO (08:24)
[2017-12-25] MEDS ORDERED: GFNSR600 PO (08:24)
[2017-12-25] MEDS ORDERED: CARV6.252 PO (08:24)
[2017-12-25] MEDS ORDERED: IPRASOL4 INH (08:24)
[2017-12-25] MEDS ORDERED: ZRX5 PO (08:24)
[2017-12-25] MEDS ORDERED: LSN5 PO (08:24)
[2017-12-25] MEDS ORDERED: NICO7DIS7 TD (08:24)
[2017-12-25] MEDS ORDERED: MCRK20 PO (08:24)
[2017-12-25] MEDS ORDERED: KFL500 PO (08:24)
--- NOTE | 2017-12-25 08:36 | Discharge Instructions ---
Discharge Instructions Date of Service Dec 25, 2017. Admission Reason for Admission: Chf (Congestive Heart Failure) Discharge Discharge Diagnosis / Problem: Acute Systolic CHF Discharge Goals Goal(s): Decrease discomfort, Improve function, Increase independence Activity Recommendations Activity Level: Assistance Required Therapies: Physical Therapy, Occupational Therapy . Additional Information Patient informed of condition: Yes Advance Directives: No DNR: No Level of Care: Acute Rehab Communicable Disease: No Prognosis: Stable Instructions / Follow-Up Instructions / Follow-Up 67-year-old female, admitted with acute on chronic systolic CHF exacerbation, with history of CHF and cardiomyopathy, hyponatremia, possible UTI, Bed bugs with possible poor personal hygiene, and constipation: Acute on Chronic Systolic CHF: IMPROVING - Diuresed currently for a negative 21.7 L - Increased Lasix to 40 mg BID and Metolazone three times a week (Friday, Friday, Friday) - this will need to readdressed as she continues to have significant overload but likely will change with time - Recommend to have BMP in 3-4 days to assess electrolytes and kidney function - she has had minimal change in kidney function during admission with this significant amount of diuresis - Imdur 30 mg daily - Plan to leave [place] and can be re-evaluated for discontinuation as diuresis slows down - Recommend outpatient cardiology follow-up - 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 Jen Pritchard - [phone] Fever/Cough and Possible UTI: RESOLVED - Keflex 500 mg BID to complete course on 12/28 - No infiltrate on CXR and no evidence of fever or leukocytosis - likely viral etiology/bronchitis - Duonebs PRN HTN: - Continue current Coreg of 9.375 mg BID; Lisinopril to 5 mg daily; Hydralazine D/C'd Cardiomyopathy - Restrictive Diastolic Filling: Sarcoid/Amyloid? - Can be explored as an outpatient Disposition: - Recommendations for O2 wean vs two-step prior to D/C - may need chronic O2, she does have mild Pulm HTN on echo - Recommend outpatient follow-up with cardiology - Recommend BMP in next 3-4 days to assess electrolytes and kidney function Current Hospital Diet Patient's current hospital diet: AHA Diet (Heart Healthy), Low Sodium Diet (2gm Na) Discharge Diet Recommended Diet: AHA Diet (Heart Healthy), Low Sodium Diet (2gm Na) Pending Studies Studies pending at discharge: no Laboratory Results Lipid Panel Test 12/16/17 07:06 Range/Units Triglycerides Level 36 0-150 mg/dl Cholesterol Level 63 0-200 mg/dl HDL Cholesterol 29 mg/dl Cholesterol/HDL Ratio 2.2 LDL Cholesterol, Calculated 27 mg/dl Medical Emergencies . Who to Call and When: Medical Emergencies: If at any time you feel your situation is an emergency, please call 911 immediately. . Non-Emergent Contact Non-Emergency issues call your: Primary Care Provider Call Non-Emergent contact if: you have a fever, your pain is concerning you, you have any medication questions . . "Provider Documentation" section prepared by Tiff Cedillo. . Core Measure Problem Core Measures: None
--- NOTE | 2017-12-25 15:39 | Discharge Summary ---
Discharge Summary Date of Service Dec 25, 2017. Discharge Summary Admission Date: Dec 15, 2017 at 09:39 Discharge Date: Dec 25, 2017 Discharge Disposition: Rehab Principal Diagnosis: Acute Systolic CHF Problems/Secondary Diagnoses: 1. HTN 2. Systolic CHF 3. HLD 4. Tobacco Abuse Procedures: ABDOMEN AND PELVIS CT WITH IV CONTRAST FINDINGS: Moderate enlargement of the imaged cardiac chambers. Trace bilateral pleural effusions. Emphysematous changes of the lungs redemonstrated. Groundglass opacities of the lung bases suggest atelectasis. There is no pneumatosis or pneumoperitoneum identified. Study is limited secondary to patient body habitus and patient motion. Decreased attenuation of the liver is compatible with fatty infiltration. The liver also appears to be mildly enlarged. The spleen, pancreas and right adrenal gland are unremarkable. The left adrenal gland is not well seen. The kidneys appear unremarkable. No hydronephrosis. 12 mm low attenuating lesion of the inferior pole right kidney suggests renal cyst. Urinary bladder is mostly decompressed. Uterus and adnexa are unremarkable. Air is noted within the endometrial canal. Uterine fundus. Mild amount of abdominal and pelvic ascites is noted with mesenteric and diffuse body wall edema. Moderate to extensive calcification of the aorta and iliac vasculature. No aneurysm. No pathologic adenopathy. Small sliding-type hiatal hernia. No bowel obstruction. Colonic diverticulosis without definite evidence of acute diverticulitis. Appendix is not well seen. Degenerative changes are noted throughout the spine. The bones appear osteopenic. IMPRESSION: 1. Findings compatible with fluid overload with mild abdominal and pelvic ascites, trace bilateral pleural effusions and diffuse body wall edema. 2. Hepatic steatosis. 3. No evidence of bowel obstruction or pneumoperitoneum. 4. Nonspecific air is noted within the endometrial canal near the uterine fundus. 5. Small sliding-type hiatal hernia. 6. Additional findings as above. ECHOCARDIOGRAM n The left ventricle is borderline dilated. n There is moderate concentric left ventricular hypertrophy. n Left ventricular systolic function is mildly reduced. n There is evidence of restrictive diastolic filling n There is mild to moderate right ventricular hypertrophy. n The left atrium is severely dilated. n The right atrium is moderately dilated. n Aortic valve sclerosis moderate, without significant aortic valvular stenosis. n Right ventricular systolic pressure is elevated at 50-60mmHg. n The inferior vena cava is severely dilated. n Compared to study from 2015, the pulmonary pressures are slightly higher, the LV systolic function is slightly better. Consultations: 1. Cardiology Medication Reconciliation New Medications: Cephalexin Monohydrate (Cephalexin) 500 Mg Cap 500 MG PO BID, #7 CAP Take one dose on 12/25 in evening then resume twice a day on 12/26 Guaifenesin Ext Rel (Mucinex Ext Rel) 600 Mg Tabcr 600 MG PO Q12H for 7 Days, #14 TABS Ipratropium-Albuterol (Duoneb) 3 Ml Nebu 3 ML INH Q4H PRN for SOB/WHEEZING for 5 Days Lisinopril (Lisinopril) 5 Mg Tab 5 MG PO QAM for 30 Days, #30 TAB Metolazone (Metolazone) 5 Mg Tab 5 MG PO 3XWK for 30 Days, #12 TAB Take on Friday, Friday, and Friday. Nicotine (Nicoderm Cq 7 Mg Patch) 7 Mg/24 Hr Dis 1 PATCH TD QAM for 7 Days, #7 PATCH Potassium Chloride (Klor-Con M20) 20 Meq Tabcr 20 MEQ PO BID for 30 Days, #60 TABS Changed Medications: Carvedilol (Coreg) 6.25 Mg Tab 9.375 MG PO BIDM for 30 Days, #45 TAB (Changed from: 6.25 MG) Furosemide (Furosemide) 40 Mg Tab 40 MG PO BID for 30 Days, #60 TABS (Changed from: Furosemide (Lasix) 20 Mg Tab 20 Mg PO BID) Continued Medications: Aspirin (Aspirin Ec) 81 Mg Tab 81 MG PO DAILY Atorvastatin (Lipitor) 40 Mg Tab 40 MG PO HS, TAB Ibuprofen (Advil) 200 Mg Tab 200-600 MG PO Q4H PRN for Pain, TAB Isosorbide Mononitrate Ext Rel (Imdur Ext Rel) 30 Mg Ertab 30 MG PO QAM, TAB Sennosides-Docusate Sodium (Stool Softener) 1 Tab Tab 1 TAB PO DIRECTED PRN for Constipation Vitamins C & E (Vitamin C) 1 Cap Cap 1 CAP PO DAILY Discontinued Medications: Hydralazine Hcl (Apresoline) 25 Mg Tab 25 MG PO Q8, TAB Discharge Exam Review of Systems: Constitutional: No fever, No chills ENT: No nasal symptoms Respiratory: + cough (improving), + sputum (improving), No shortness of breath Cardiovascular: No chest pain Abdomen: No pain, No nausea, No vomiting, No diarrhea, No constipation Musculoskeletal: + swelling (improving - still significant in b/l legs) Genitourinary - Female: No dysuria Psychiatric: + depression symptoms, + anxiety Hematologic / Lymphatic: No abnormal bleeding/bruising Physical Exam: General Appearance: no apparent distress ENT: hearing grossly normal Neck: supple, no JVD, trachea midline Respiratory/Chest: lungs clear, normal breath sounds, no respiratory distress, no accessory muscle use Cardiovascular: regular rate, rhythm, no gallop, no murmur Abdomen / GI: normal bowel sounds, non tender, soft Extremities: + swelling (1+ pitting edema to knee of LLE and thigh of RLE) Neurologic/Psychiatric: alert, + pertinent finding (patient reports acute sadness as she feels alone and wants people to talk to, no suicidial ideation, states this isn't chronic feelings; expresses anxiety about rehab and her medical issues; exhibits some paranoia-like features) Skin: normal color, warm/dry (flaking b/l lower extremities) Hospital Course ADMISSION: Patient is a pleasant 67 y/o female, with PMHx of HTN, systolic CHF, and HLD, who presented to the ED because of fluid build up and urinary symptoms. Patient is a very poor historian. She is unable to confirm medications. When asked who prescribed the medications, she states "I don't know , the last time I was seen was in [place] in February." She does not have a PCP. She states she was seen at the hospital in [place] in February [place] and felt short of breath. She states she was diagnosed with an anxiety attack and left with the prescribed medications she has now. She states she is currently very weak to the point of having trouble with walking. +Abdominal and lower extremity edema. She also notes urinary frequency. Denies h/o GA, cardiac cath, CVA/TIA, DVT/PE. Patient denies any fever, chills, sweats, lightheadedness, dizziness, vision changes, CP, palpitations, SOB, wheezing, cough, abdominal pain, nausea, vomiting, diarrhea, melena, numbness/tingling, muscle/joint pain, anxiety/depression, active bleeding, or new skin discoloration/changes. HOSPITAL COURSE: 67-year-old female, admitted with acute on chronic systolic CHF exacerbation, with history of CHF and cardiomyopathy, hyponatremia, possible UTI, Bed bugs with possible poor personal hygiene, and constipation: Acute on Chronic Systolic CHF: IMPROVING - Diuresed currently for a negative 21.7 L and currently at a - 30 lbs weight loss - Imdur 30 mg daily - Cardiology followed during admission - may need established follow-up in [facility] - Patient has established [facility] in [facility] but would no allow record release - stated she wanted fresh eyes to evaluate her; would be helpful to know previous diagnoses/interventions as she cannot report Fever/Cough and Possible UTI: RESOLVED - Keflex 500 mg BID to complete full course for UTI - No infiltrate on imaging - likely viral etiology - resolving HTN: - Recommendations given for increasing BB and ACEI and D/C of Hydralazine - Continue increased Coreg of 9.375 mg BID; Increased Lisinopril to 5 mg daily; Hydralazine D/C'd Cardiomyopathy - Restrictive Diastolic Filling: Sarcoid/Amyloid? - Can be further worked up as outpatient or monitored Anxiety/Depression: Paranoia? - Reporting acute sadness and anxiety as she feels alone due to family not frequently visiting while in the hospital; states she doesn't have long standing anxiety/depression and states she has never been on any medications for this - Does make intermittent comments that are bizarre with some paranoia - states she "can see people better and wishes God would have just told me who they were " and making comments to adjust wording in her medical records about events at a casino and where she lives - Unsure if there is any underlying psychiatric conditions - patient does not express SI/HI Disposition: - Can be D/C'd with [place] and O2 - recommendations for O2 wean vs two-step prior to D/C - may need chronic O2, she does have mild Pulm HTN on echo Total Time Spent: Greater than 30 minutes This includes examination of the patient, discharge planning, medication reconciliation, and communication with other providers. Discharge Instructions Please refer to the electronic Patient Visit Report (Discharge Instructions) for additional information. Additional Copies To Bebo Moreno
[2017-12-25 15:57] VITALS: BP 106/82; PULSE 70; TEMP 36.3; O2SAT 95
[2017-12-25 16:00] VITALS: O2SAT 95
[2017-12-25 16:43] VITALS: BP 106/82; PULSE 70; TEMP 36.8; O2SAT 95
== END 2017-12-25 18:12 | DRG 292 ==
LOC: EDBD 05:44 → C.EDB 05:45 → C.2E 09:39 → EDBEDREQ 09:42 → ENRESERV 09:45 → C.MS4W 12-19 14:30 → ENRESERV 12-19 15:47
PROVIDERS: ADMIT Hospitalist; ATTEND Internal Medicine
DX: I11.0 Hypertensive heart disease with heart failure (principal); E87.1 Hypo-osmolality and hyponatremia; N39.0 Urinary tract infection, site not specified; H40.9 Unspecified glaucoma; I50.23 Acute on chronic systolic (congestive) heart failure; B96.89 Other specified bacterial agents as the cause of diseases classified elsewhere; I42.9 Cardiomyopathy, unspecified; Z88.0 Allergy status to penicillin; F17.200 Nicotine dependence, unspecified, uncomplicated; E87.6 Hypokalemia; B88.8 Other specified infestations; E78.5 Hyperlipidemia, unspecified; F32.9 Major depressive disorder, single episode, unspecified; J44.9 Chronic obstructive pulmonary disease, unspecified

== ENCOUNTER 2019-03-03 01:51 | Inpatient (IN) ==
[2019-03-03] MEDS ORDERED: PIPERACILLIN/TAZOBACTAM 4.5 GM/120ML D5W ONE (03:52)
--- OUTSIDE RECORDS SUMMARY | 2019-03-03 04:04 | External Medical Summary | Continuity of Care Document ---
:1950 Author Name Dominic Estevez, Provider Address Unavailable Unavailable , Care Team Providers Name Role Phone Nathan Briceno DO Unavailable [email or web address] [email or web address], [email or web address] Unavailable Unavailable Unavailable Unavailable Unavailable Problems Systolic heart failure (428.20) (I50.20) Constipation (564.00) (K59.00) Allergic rhinitis (477.9) (J30.9) Asthma (493.90) (J45.909) COPD (chronic obstructive pulmonary disease) (496) (J44.9) Hypertension (401.9) (I10) Chest pain (786.50) (R07.9) HLD (hyperlipidemia) (272.4) (E78.5) Allergies and Adverse Reactions Penicillins (Allergy) Medications Aspirin EC 81 MG Oral Tablet Delayed Release; TAKE 1 T ABLET DAILY. DO Nathan Briceno Start: 03-Aug-2018 Quantity: 30 Refills: 1 Lisinopril 5 MG Oral Tablet; TAKE 1 TABLET DAILY. DO Nathan Briceno Quantity: 90 Refills: 1 Furosemide 40 MG Oral Tablet; TAKE 1 TABLET TWICE DAILY. DO Nathan Brown Quantity: 60 Refills: 1 Atorvastatin Calcium 40 MG Oral Tablet; TAKE 1 TABLET BY BRUCE TH AT BEDTIME. Quantity: 30 Refills: 5 Carvedilol 6.25 MG Oral Tablet; TAKE 1 TABLET BY MOUTH TWICE DAILY DO Nathan Briceno Quantity: 60 Refills: 1 Ibuprofen 200 MG Oral Tablet; TAKE 1-3 TABLETS EVERY 4 HOURS DAILY NEEDED. Refills: 0 DuoNeb 0.5-2.5 (3) MG/3ML SOLN; USE 1 UNIT DOSE IN NEBULIZER 4 TIMES DAILY. Refills: 0 Imdur 30 MG TB24; TAKE 1 TABLET DAILY. Refills: 11 metOLazone 5 MG Oral Tablet; TAKE 1 TAB BY MOUTH ON MON-WED- FRI. Refills: 0 Potassium Chloride Eli ER 20 MEQ Oral T ablet Extended Release; TAKE 1 TABLET TWICE DAILY. Briceno, DO Nathan Quantity: 60 Refills: 1 Vitamin C & E Combination CAPS; TAKE 1 CAP BY MOUTH DAILY. Refills: 0 Sennosides 8.6 MG TABS; TAKE DIRECTED. Refills: 0 Procedures Procedures not documented Immunizations Immunizations not documented Social History - Smoking Status Current every day smoker Plan of Treatment Planned Observations Planned Goals not documented Results No Known Results Results not documented Encounters Appointment; Nathan Briceno DO 19-Aug-2018 13:00 Encounter Diagnosis: Problem not documented Appointment; Annmarie Villagran PA-C 04-Aug-2018 10:15 Encounter Diagnosis: Problem not documented Appointment; Annmarie Villagran PA-C 13-Jul-2018 9:00 Encounter Diagnosis: Problem not documented Appointment; Nathan Briceno DO 02-Jul-2018 9:20 Encounter Diagnosis: Problem not documented Appointment; Caron Inman PA-C 11-Feb-2018 10:15 Encounter Diagnosis: Problem not documented Appointment; Caron Inman PA-C 03-Feb-2018 15:30 Encounter Diagnosis: Problem not documented Appointment; Annmarie Villagran PA-C 22-Jan-2018 15:15 Encounter Diagnosis: Problem not documented
[2019-03-03] MEDS ORDERED: VANCOMYCIN HCL 2,000 MG in SODIUM CHLORIDE 0.9% 500 ML IV STA (04:21)
[2019-03-03 04:39] LABS: Albumin Globulin Ratio 0.4 (0.9-2); BUN Creatinine Ratio 20.8 (10-20); Bilirubin,Total 2.7 mg/dl (0.2-1); C Reactive Protein 11.8 mg/dl (0-0.29); Calcium 8.4 mg/dl (8.5-10.1); Creatinine Clr Calc Pharmacy 77.3 ml/min; Est GFR (Non-African American) 77.7; Globulin 5.2 gm/dl (2.5-4.0); Total Protein 7.2 gm/dl (6.4-8.2)
[2019-03-03 04:41] LABS: Basophils # (auto) 0.04 K/uL (0-0.2); Basophils % (auto) 0.2 %; Eosinophils # (auto) 0.12 K/uL (0-0.5); Eosinophils % (auto) 0.7 %; Hematocrit (blood only) 42.7 % (37-47); Hemoglobin 13.4 g/dL (12.0-16.0); Immature Granulocytes # (auto) 0.23 K/uL (0.00-0.02); Immature Granulocytes % (auto) 1.4 %; Lymphocytes # (auto) 1.19 K/uL (1.2-3.4); Lymphocytes % (auto) 7.1 %; Mean Corpuscular Hgb Conc 31.4 g/dL (32-36); Mean Corpuscular Volume 92.2 fL (80-100); Mean Platelet Volume 9.5 fL (7.4-10.4); Monocytes # (auto) 1.12 K/uL (0.11-0.59); Monocytes % (auto) 6.7 %; Neutrophils # (auto) 13.99 K/uL (1.4-6.5); Neutrophils % (auto) 83.9 %; Platelet Count 393 K/uL (130-400); RDW Standard Deviation 57.2 fL (36.4-46.3); Red Blood Count 4.63 M/uL (4.2-5.4); White Blood Count 16.69 K/uL (4.8-10.8)
[2019-03-03] MEDS ORDERED: HYDROmorphone INJ 0.5 MG/0.5 ML SYR IV STA ×2 (04:59→07:52)
[2019-03-03] MEDS ORDERED: metroNIDAZOLE 500 MG/100 ML BAG IV STA (05:31)
[2019-03-03 05:32] LABS: Potassium 3.6 mmol/L (3.5-5.1)
[2019-03-03 05:38] LABS: Magnesium 2.3 mg/dl (1.8-2.4)
--- NOTE | 2019-03-03 06:23 | Emergency Department Note ---
Entered by Ovidio Rene acting as a scribe for Jim Davis MD ED Provider Note Name: Liane Arreguin Age: 69 Arrives Via: Triage Informant: Self CC: Lower leg discomfort. HPI: 69 y/o female arrives for evaluation of worsening lower leg discomfort beginning a few weeks ago. The patient states she has had worsening lower leg discomfort for the past few weeks. The patient reports that this evening the pain in the lower leg worsened resulting in a visit to the ED. She notes there is drainage from both lower legs resulting in discomfort and there has also been increased swelling in the legs. The patient states she placed paper towels over her legs as a wound dressing. The patient reports that she has not received treatment for the condition due to her blindness and inability to get to a physician. Patients daughter has commented on the smell of the patients leg. The patient notes that she takes Lasix and blood pressure medications and denies being on antibiotics. She denies fever, chills, nausea and vomiting. Patient reports feeling weak the past few days. She states that the pain is worse with ambulation and improves with rest. Patient denies history of DVT and PE. 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 ROS: See above HPI for pertinent positives & negatives. A total of 10 systems reviewed and were otherwise negative. Past Medical History: CHF, Hyperlipidemia, HTN, Visual impairment Past Surgical History: None Family History: None Social History: Current smoker Home Medications: see below Allergies Penicillins Physical: Vitals: Pulse: 106, BP: 131/85, O2 Sat: 91 Resp: 18 Exam: GENERAL: Strong malodorous smell in room. Mildly anxious and chronically unwell appearing. Mild distress. EYES: No scleral icterus, unremarkable pupils. ENT: Mucous membranes moist, no nasal congestion. NECK: No masses appreciated, no meningismus, trachea is midline. RESPIRATORY: No dyspnea. Clear to auscultation and equal bilaterally. No wheeze, no rhonchi. CARDIOVASCULAR: Regular rate and rhythm. No murmurs, rubs, gallops appreciated. GASTROINTESTINAL: Abdomen soft, non-tender, no peritonitis. Bowel sounds positive. No masses appreciated. BACK: No midline tenderness, no CVA tenderness EXTREMITIES: Normal motion all extremities, no cyanosis, 4+ edema bilateral lo wer legs. Bilateral legs from knees down are erythematous and swelling with diffuse weeping with multiple of exudative weeping. Many large ulcers. Wound wrapping of paper towel was removed. Faint pulses bilateral feet. NEUROLOGIC: Alert and oriented, no acute motor or sensory deficits, no focal weakness, cranial nerves grossly intact. Patient is blind. SKIN: No rash, no jaundice, no diaphoresis. ED Course: Prior Medical Record, Triage/Nursing Notes, Medications, Allergies reviewed by Me Vital Signs: reviewed and remarkable for tachy Labs: Reviewed and remarkable for elevated wbc/procalcitonin Interventions: Saline Lock, Zosyn 4.5gm IV, Vanco 2g IV, Flagyl 500mg IV, Dilaudid 0.5mg IV Imaging: X ray results are stated below per my interpretation: Chest: 1 view: No infiltrate, no effusion, normal cardiac border. Tib/Fib: 4 view bilateral: Soft tissue edema. No signficant sub q air. No FB. No fracture no dislocation EKG: Per My Interpretation: Indication Sepsis: Sinus Tach 110 with PAC and PVCs no ischamia, large P waves, poor baseline laterally. QTC 462 Consults: Hospitalization Reassessments/Times: 0157: The patient was evaluated in room B12B. A complete history and physical exam was performed. 0301: I made Dr. Huynh, [facility] Hospitalist, aware of the patient. 0411: Upon reevaluation, I discussed findings and results with the patient. She verbalized agreement of the treatment plan. 0449: Medical system just came back on. 0452: Re-paged Dr. Huynh. 0501: I spoke with Dr. Hunyh of the [facility] Hospitalist Service. The patient will be evaluated for further management and care. Blood pressure: Normal. No Referral necessary Disposition: Hospitalization Differentials: Etiologies such as DVT, vascular ischemia, radiculopathy, fracture, hematoma/contusion, myositis, abscess, septic arthritis cellulitis, joint effusion, trauma, lymphedema, idiopathic, CHF, as well as others were ent ertained. Medical Decision Makin yr old female with history of CHF arrives for worsening leg swelling and pain. Severe cellulitis with open weeping of ulcers on bilateral lower legs being treated at home by covering in paper towel. These are clearly infected. No crepitus and no free air on imaging. She has mild CHF though will hold off on Lasix given concern for sepsis. She has elevated wbc/procal consistent with sepsis but without hypotension nor lactic acidosis I do not feel that fluid resus indicated in this CHF patient. She was given broad spectrum abx early in course. Will need to come in for further management and hospitalist on board with plan. Impression: Bilateral lower leg cellulitis sepsis CHF exacerbation Jim Davis MD This patient was seen during [facility] down-time and chart was completed at later date/time. Please note that times of orders, medications, and testing as well as re-evaluations and consultations may not accurately reflect actual times they were placed/preformed. The scribe's documentation has been prepared under my direction and personally reviewed by me in its entirety. I confirm that the note above accurately reflects all work, treatment, procedures, and medical decision making performed by me. Impression & Plan Bilateral cellulitis of lower leg, Sepsis, Acute exacerbation of CHF (congestive heart failure) Past Med/Surg History Medical History Hyperlipemia (Chronic) Acute combined systolic and diastolic congestive heart failure (Acute) Atrial ectopy (Chronic) HTN (hypertension) (Chronic) Visual impairment (Chronic) Surgical History No pertinent past surgical history Family History Other No pertinent family history Social History Feels Safe at Home: Yes Smoking Status: Current some day smoker Results & Data Vital Signs Vital Signs - 24 hr 03/03/19 01:57 03/03/19 05:20 Sepsis Recent Fever Within 48 Hours No Sepsis Action Taken by Nursing No Action Required Pulse Rate 106 H Pulse Rate [Finger] 92 H Respiratory Rate 18 18 Blood Pressure 131/85 Blood Pressure [Left Arm] 128/76 Blood Pressure Mean 100 Blood Pressure Mean [Left Arm] 93 Pulse Oximetry 91 92 Oxygen Delivery Method Room Air Room Air Home Medications Current Medication List: was personally reviewed by me Laboratory Data Attestation: I reviewed the patient's lab results. Result diagrams: 03/03/19 02:15 03/03/19 05:11 Lab Results 03/03/19 03/03/19 03/03/19 Range/Units 02:15 02:15 02:15 WBC 16.69 H (4.8-10.8) K/uL RBC 4.63 (4.2-5.4) M/uL Hgb 13.4 (12.0-16.0) g/dL Hct 42.7 (37-47) % MCV 92.2 (80-100) fL MCH 28.9 (25-34) pg MCHC 31.4 L (32-36) g/dL RDW Std Deviation 57.2 H (36.4-46.3) fL RDW Coeff of Malia 17.0 H (11.5-14.5) % Plt Count 393 (130-400) K/uL MPV 9.5 (7.4-10.4) fL Immature Gran % (Auto) 1.4 % Neut % (Auto) 83.9 % Lymph % (Auto) 7.1 % [place] % (Auto) 6.7 % Eos % (Auto) 0.7 % Baso % (Auto) 0.2 % Immature Gran # (Auto) 0.23 H (0.00-0.02) K/uL Neut # (Auto) 13.99 H (1.4-6.5) K/uL Lymph # (Auto) 1.19 L (1.2-3.4) K/uL [place] # (Auto) 1.12 H (0.11-0.59) K/uL Eos # (Auto) 0.12 (0-0.5) K/uL Baso # (Auto) 0.04 (0-0.2) K/uL Sodium 135 L (136-145) mmol/L Potassium (3.5-5.1) mmol/L Chloride 100 (98-107) mmol/L Carbon Dioxide 33 H (21-32) mmol/L Anion Gap 2.0 L (3-11) BUN 16 (7-18) mg/dl Creatinine 0.77 (0.6-1.2) mg/dl Est Cr Clr Drug Dosing 77.3 ml/min Est GFR ( Amer) 90.0 Est GFR (Non-Af Amer) 77.7 BUN/Creatinine Ratio 20.8 H (10-20) Glucose 104 H (70-99) mg/dl Lactate 1.6 (0.4-2.0) mmol/L Calcium 8.4 L (8.5-10.1) mg/dl Magnesium (1.8-2.4) mg/dl Total Bilirubin 2.7 H (0.2-1) mg/dl AST (15-37) U/L ALT 22 (12-78) U/L Alkaline Phosphatase 182 H (45-117) U/L C-Reactive Protein 11.80 H (0-0.29) mg/dl NT-Pro-B Natriuret Pep 5520 H (0-900) pg/ml Total Protein 7.2 (6.4-8.2) gm/dl Albumin 2.0 L (3.4-5.0) gm/dl Globulin 5.2 H (2.5-4.0) gm/dl Albumin/Globulin Ratio 0.4 L (0.9-2) Procalcitonin 03/03/19 03/03/19 03/03/19 Range/Units 02:15 05:11 05:11 WBC (4.8-10.8) K/uL RBC (4.2-5.4) M/uL Hgb (12.0-16.0) g/dL Hct (37-47) % MCV (80-100) fL MCH (25-34) pg MCHC (32-36) g/dL RDW Std Deviation (36.4-46.3) fL RDW Coeff of Malia (11.5-14.5) % Plt Count (130-400) K/uL MPV (7.4-10.4) fL Immature Gran % (Auto) % Neut % (Auto) % Lymph % (Auto) % [place] % (Auto) % Eos % (Auto) % Baso % (Auto) % Immature Gran # (Auto) (0.00-0.02) K/uL Neut # (Auto) (1.4-6.5) K/uL Lymph # (Auto) (1.2-3.4) K/uL [place] # (Auto) (0.11-0.59) K/uL Eos # (Auto) (0-0.5) K/uL Baso # (Auto) (0-0.2) K/uL Sodium (136-145) mmol/L Potassium 3.6 (3.5-5.1) mmol/L Chloride (98-107) mmol/L Carbon Dioxide (21-32) mmol/L Anion Gap (3-11) BUN (7-18) mg/dl Creatinine (0.6-1.2) mg/dl Est Cr Clr Drug Dosing ml/min Est GFR ( Amer) Est GFR (Non-Af Amer) BUN/Creatinine Ratio (10-20) Glucose (70-99) mg/dl Lactate (0.4-2.0) mmol/L Calcium (8.5-10.1) mg/dl Magnesium 2.3 (1.8-2.4) mg/dl Total Bilirubin (0.2-1) mg/dl AST 16 (15-37) U/L ALT (12-78) U/L Alkaline Phosphatase (45-117) U/L C-Reactive Protein (0-0.29) mg/dl NT-Pro-B Natriuret Pep (0-900) pg/ml Total Protein (6.4-8.2) gm/dl Albumin (3.4-5.0) gm/dl Globulin (2.5-4.0) gm/dl Albumin/Globulin Ratio (0.9-2) Procalcitonin Cancelled 1.08 H Administered Medications Vancomycin HCl 2,000 mg/ (Sodium Chloride) 540 mls @ 200 mls/hr IV NOW STA Stop: 03/03/19 07:02 Last Admin: 03/03/19 04:50 Dose: 200 mls/hr Documented by: [id number] Metronidazole (Flagyl) 500 mg in 100 mls @ 100 mls/hr IV NOW STA Stop: 03/03/19 06:30 Last Admin: 03/03/19 06:14 Dose: 100 mls/hr Documented by: [id number] Discontinued Medications Hydromorphone HCl (Dilaudid) 0.5 mg IV NOW STA Stop: 03/03/19 05:00 Last Admin: 03/03/19 05:06 Dose: 0.5 mg Documented by: [id number] Piperacillin Sod/Tazobactam Sod (Zosyn) Confirm Administered Dose 4.5 gm .ROUTE .STK-MED ONE Stop: 03/03/19 03:53 Last Admin: 03/03/19 04:06 Dose: 4.5 gm Documented by: [id number] Blood Pressure Blood Pressure Findings: Normal blood pressure Blood Pressure Disposition: did not require urgent referral Discharge Plan Visit Data Chief Complaint: Swelling/Edema to Extremity Stated Complaint: fall ED Provider: Jim Davis Discharge Problem: Bilateral cellulitis of lower leg, Sepsis, Acute exacerbation of CHF (conge stive heart failure) Patient Disposition: Being Evaluated by Hospitalist Forms Stand Alone Forms: My [facility] Prescriptions Prescriptions: No Action acetaminophen 500 mg Tablet 1,000 mg PO Q6H PRN (Reason: Pain or fever) RF: 0 ibuprofen 200 mg Tablet 200 - 600 mg PO Q4 PRN (Reason: Pain) RF: 0 furosemide 40 mg tablet 40 mg PO DAILY PRN (Reason: weight gain) Qty: 30 RF: 0 aspirin 81 mg Tablet,Delayed Release (Dr/Ec) 81 mg PO DAILY Qty: 30 RF: 3 lisinopril 5 mg Tablet 5 mg PO DAILY RF: 0 Referrals Referrals: Nathan Briceno DO [Primary Care Provider] - Discharge Problem: Sepsis Qualifiers: Sepsis type: sepsis due to unspecified organism Qualified Code(s): A41.9 - Sepsis, unspecified organism Acute exacerbation of CHF (congestive heart failure) Qualifiers: Heart failure type: unspecified Qualified Code(s): I50.9 - Heart failure, unspecified The scribe's documentation has been prepared under my direction and personally reviewed by me in its entirety. I confirm that the note above accurately reflects all work, treatment, procedures, and medical decision making performed by me.
--- NOTE | 2019-03-03 06:25 | History & Physical Report ---
Date of Service March 03, 2019 Assessment & Plan (1) Bilateral cellulitis of lower leg: Severe bilateral lower external cellulitis/sepsis/edema- Patient is allergic to penicillins. Vancomycin IV per pharmacokinetic monitoring. Ertapenem 1 g IV daily. Flagyl 500 mg IV every 8 hours. Albumin with furosemide 40 mg IV every 12 hours x4 doses Consult infectious disease. Consult wound care. Present on Admission?: Yes (2) Sepsis: As above. Present on Admission?: Yes (3) Acute combined systolic and diastolic congestive heart failure: Change furosemide 40 mg p.o. daily as needed to albumin with furosemide 40 mg IV every 12 hours x4 doses Follow serial BMP and magnesium levels. Present on Admission?: Yes (4) Visual impairment: Patient is visually impaired, which has significantly hindered her ability to report on symptoms. Present on Admission?: Yes History of Present Illness Chief Complaint: The patient is brought to the emergency department due to severe infection in bilateral lower extremities. Primary Care Provider: Nahtan Briceno, The patient is a 69-year-old visually impaired female, with a past medical history including hyperlipidemia, atrial ectopy, hypertension, acute combined systolic and diastolic CHF, who is presented for admission due to severe bilateral lower extremity cellulitis, abscesses and erosions of skin, with severely anaerobic smell. Her contribution to her HPI and review of systems is very limited due to visual impairment and baseline mental status. Allergies Allergy/AdvReac Type Severity Reaction Status Date / Time Penicillins Allergy Unknown PT STATES Verified 03/03/19 05:00 "THINK THE DOSE WAS TO HIGH"-CAN'T REMEMBER REACT Home Medications Home Medications Medication Instructions Recorded Confirmed Type acetaminophen 1,000 mg PO Q6H PRN 06/21/18 03/03/19 History ibuprofen 200 - 600 mg PO Q4 PRN 06/21/18 03/03/19 History aspirin 81 mg PO DAILY #30 tab 06/26/18 03/03/19 Rx furosemide 40 mg PO DAILY PRN #30 tab 06/26/18 03/03/19 Rx lisinopril 5 mg PO DAILY 03/03/19 03/03/19 History Past Med/Surg History Medical History Hyperlipemia (Chronic) Acute combined systolic and diastolic congestive heart failure (Acute) Atrial ectopy (Chronic) HTN (hypertension) (Chronic) Visual impairment (Chronic) Surgical History No pertinent past surgical history Family History Other No pertinent family history Social History Feels Safe at Home: Yes Smoking Status: Current some day smoker Review of Systems Review of Systems: As noted above, review of systems is very limited due to patient's current status. Physical Exam Physical Exam: The patient is awake, alert and oriented 3, visually impaired, overwhelming anaerobic smell but on walks in the room, lying in bed and in no acute distress. HEENT--PERRL, EOMI, mucous membranes and oropharynx dry. Neck--supple. No JVD. No bruits. Thyroid normal, trachea midline, no adenopathy. Heart--normal S1 and S2. No murmurs, rubs or gallops. Lungs--clear bilaterally, no respiratory distress, no accessory muscle use. Abdomen--normal bowel sounds and soft. Nontender. Nondistended. Extremities--bilateral lower extremities with areas of open wounds due to abrasions and erosions of skin, with heavy flaking, moderate erythema. 3+ bilateral pretibial and pedal pitting edema Dermatologic--bilateral lower extremities with severe conditions as noted above. Neurologic--cranial nerves II through XII grossly intact. Rheumatologic--limited exam Psychiatric--normal affect. Results & Data Vital Signs (Past 12 Hours) Vital Signs Pulse Pulse Resp BP BP Pulse Ox 03/03/19 05:20 92 H 18 128/76 92 03/03/19 01:57 106 H 18 131/85 91 Laboratory Results Laboratory Results WBC 16.69 K/uL (4.8-10.8) H 03/03/19 02:15 RBC 4.63 M/uL (4.2-5.4) 03/03/19 02:15 Hgb 13.4 g/dL (12.0-16.0) 03/03/19 02:15 Hct 42.7 % (37-47) 03/03/19 02:15 MCV 92.2 fL (80-100) 03/03/19 02:15 MCH 28.9 pg (25-34) 03/03/19 02:15 MCHC 31.4 g/dL (32-36) L 03/03/19 02:15 RDW Std Deviation 57.2 fL (36.4-46.3) H 03/03/19 02:15 RDW Coeff of Malia 17.0 % (11.5-14.5) H 03/03/19 02:15 Plt Count 393 K/uL (130-400) 03/03/19 02:15 MPV 9.5 fL (7.4-10.4) 03/03/19 02:15 Immature Gran % (Auto) 1.4 % 03/03/19 02:15 Neut % (Auto) 83.9 % 03/03/19 02:15 Lymph % (Auto) 7.1 % 03/03/19 02:15 [place] % (Auto) 6.7 % 03/03/19 02:15 Eos % (Auto) 0.7 % 03/03/19 02:15 Baso % (Auto) 0.2 % 03/03/19 02:15 Immature Gran # (Auto) 0.23 K/uL (0.00-0.02) H 03/03/19 02:15 Neut # (Auto) 13.99 K/uL (1.4-6.5) H 03/03/19 02:15 Lymph # (Auto) 1.19 K/uL (1.2-3.4) L 03/03/19 02:15 [place] # (Auto) 1.12 K/uL (0.11-0.59) H 03/03/19 02:15 Eos # (Auto) 0.12 K/uL (0-0.5) 03/03/19 02:15 Baso # (Auto) 0.04 K/uL (0-0.2) 03/03/19 02:15 Sodium 135 mmol/L (136-145) L 03/03/19 02:15 Potassium 3.6 mmol/L (3.5-5.1) 03/03/19 05:11 Chloride 100 mmol/L (98-107) 03/03/19 02:15 Carbon Dioxide 33 mmol/L (21-32) H 03/03/19 02:15 2.0 (3-11) L 03/03/19 02:15 BUN 16 mg/dl (7-18) 03/03/19 02:15 0.77 mg/dl (0.6-1.2) 03/03/19 02:15 Est Cr Clr Drug Dosing 77.3 ml/min 03/03/19 02:15 Est GFR ( Amer) 90.0 03/03/19 02:15 Est GFR (Non-Af Amer) 77.7 03/03/19 02:15 20.8 (10-20) H 03/03/19 02:15 Glucose 104 mg/dl (70-99) H 03/03/19 02:15 1.6 mmol/L (0.4-2.0) 03/03/19 02:15 Calcium 8.4 mg/dl (8.5-10.1) L 03/03/19 02:15 Magnesium 2.3 mg/dl (1.8-2.4) 03/03/19 05:11 2.7 mg/dl (0.2-1) H 03/03/19 02:15 AST 16 U/L (15-37) 03/03/19 05:11 ALT 22 U/L (12-78) 03/03/19 02:15 182 U/L (45-117) H 03/03/19 02:15 11.80 mg/dl (0-0.29) H 03/03/19 02:15 NT-Pro-B Natriuret Pep 5520 pg/ml (0-900) H 03/03/19 02:15 7.2 gm/dl (6.4-8.2) 03/03/19 02:15 2.0 gm/dl (3.4-5.0) L 03/03/19 02:15 5.2 gm/dl (2.5-4.0) H 03/03/19 02:15 0.4 (0.9-2) L 03/03/19 02:15 1.08 ng/ml (0-0.5) H 03/03/19 05:11 Code Status & VTE Plan Code Status Full code VTE Prophylaxis Plan VTE Prophylaxis will be ordered: Yes (1) Sepsis Sepsis type: sepsis due to unspecified organism Qualified Code(s): A41.9 - Sepsis, unspecified organism
[2019-03-03] MEDS ORDERED: VANCOMYCIN CONSULT ACTIVE PRN (07:44)
[2019-03-03] MEDS ORDERED: ONDANSETRON INJ 2 MG/ML 2 ML VIAL IV PRN (07:44)
[2019-03-03] MEDS ORDERED: ALUMINUM/MAGNESIUM SUSP 30 ML UDC PO PRN (07:44)
[2019-03-03] MEDS ORDERED: MAGNESIUM HYDROXIDE SUSP 30 ML UDC PO PRN (07:44)
[2019-03-03] MEDS ORDERED: ALBUMIN 25% 50 ML with FUROSEMIDE 40 MG IV SCH (08:00)
[2019-03-03] MEDS ORDERED: HYDROmorphone INJ 0.5 MG/0.5 ML SYR ONE (08:01)
--- NOTE | 2019-03-03 08:04 | XRay Report ---
XR tibia fibula RT 2V CLINICAL HISTORY: B/L LEG INFECTION COMPARISON: None FINDINGS: Alignment of the right knee is anatomic. There is a small osteochondroma arising from the medial metaphysis of the right tibia. There is no fracture or evidence for osteomyelitis within the r ight tibia or fibula. Soft tissue swelling is noted with possible varicosities. There is moderate rig ht knee osteoarthritis. IMPRESSION: No acute fracture. No evidence for osteomyelitis within the right tibia or fibula. Electronically signed by: Will Gonzales M.D. 03/03/2019 8:02 AM
--- NOTE | 2019-03-03 08:05 | XRay Report ---
XR tibia fibula LT 2V CLINICAL HISTORY: B/L LEG INFECTION COMPARISON: None FINDINGS: There is no fracture or evidence of osteomyelitis within the left tibia or fibula. There i s no left knee joint effusion. Note is made of moderate left knee osteoarthritis. There is left lower leg soft tissue swelling. IMPRESSION: No acute fracture. No evidence for osteomyelitis within the left tibia or fibula. Electronically signed by: Will Gonzales M.D. 03/03/2019 8:03 AM
[2019-03-03] MEDS: ACETAMINOPHEN 1000 MG/100 ML IV IV PRN ×2 (08:08→15:00)
--- NOTE | 2019-03-03 08:12 | XRay Report ---
XR chest 1V portable CLINICAL HISTORY: 69 years-old Female presenting with CHF. TECHNIQUE: Portable upright AP view of the chest was obtained. COMPARISON: 06/19/2018. FINDINGS: Atherosclerosis of the aortic arch. Cardiac silhouette enlarged. Mild pulmonary vascular prominence. Lungs are hyperinflated. No focal opacity. No pleural effusion or pneumothorax. Osseous structures no rmal. Upper abdomen normal. IMPRESSION: 1. Cardiomegaly with possible mild volume overload. No other convincing evidence of congestive carranza e. 2. Findings suggest emphysema. No focal infiltrate to suggest pneumonia. Electronically signed by: Glen Joy M.D. 03/03/2019 8:11 AM
--- NOTE | 2019-03-03 09:10 | Pharmacy Report ---
Pharmacy Abx Initial Consult - Date of Service March 03, 2019 - Pharmacy Dosing Scope Date of Consult: 03-03 Consultation requested by: Dr. Huynh Pharmacy is consulted to initiate vancomycin IV/PO dosing therapy, order appropriate labs and adjust drug dose/frequency. - Subjective The patient is a 69 year old F admitted on 03/03/19 06:58. - Objective Height: 6 ft Weight: 82.7 kg Vital Signs (Past 12hrs): Vital Signs Temp Pulse Pulse Resp BP BP Pulse Ox 03/03/19 07:34 36.6 C 115 H 22 153/88 H 92 03/03/19 05:20 92 H 18 128/76 92 03/03/19 01:57 106 H 18 131/85 91 Lab Results (24hrs): Laboratory Tests (24 Hours) 03/03/19 03/03/19 03/03/19 05:11 02:15 02:15 WBC 16.69 H Neut # (Auto) 13.99 H Creatinine Est Cr Clr Drug Dosing C-Reactive Protein Procalcitonin 1.08 H Cancelled 03/03/19 02:15 WBC Neut # (Auto) Creatinine 0.77 Est Cr Clr Drug Dosing 77.3 C-Reactive Protein 11.80 H Procalcitonin Micro Results: 03/03/19 03:38 Aerobic Blood Culture - Pending Blood Anaerobic Blood Culture - Pending 03/03/19 03:36 Aerobic Blood Culture - Pending Blood Anaerobic Blood Culture - Pending - Assessment & Plan Assessment/Plan: Patient started on vancomycin, ertapenem and flagyl for bilateral lower extremity cellulitis/drainage. Blood cultures x 2 are pending. ID is consulted to follow the patient. Vancomycin: * Received loading dose of vancomycin 2000 mg (~24 mg/kg) this morning * Will start maintenance dose of vancomycin 1250 mg Q12 hrs (~15 mg/kg) to achieve estimated trough ~15-20 mcg/ml * Estimated kinetics: t1/2~10 hrs, ke~0.06 hr-1, CrCl ~77 ml/min - appears to be her baseline renal function * Will plan to order a trough level prior to the 0400 dose on 03/05 to ensure therapeutic Pharmacy will continue to follow and will adjust dose/frequency as necessary. Thank you.
[2019-03-03] MEDS: ASPIRIN 81 MG ECTAB PO SCH (09:21)
[2019-03-03] MEDS: ERTAPENEM SODIUM 1,000 MG in SODIUM CHLORIDE 0.9% 50 ML IV SCH (10:34)
--- NOTE | 2019-03-03 10:55 | Infectious Disease Consult ---
Date of Consultation March 03, 2019 Assessment & Plan (1) Bilateral cellulitis of lower leg: Patient with bilateral lower extremity cellulitis in the setting of what appears to be chronic venous stasis disease, likely with polymicrobial infection given foul-smelling drainage. Would continue on vancomycin and ertapenem, can discontinue metronidazole as ertapenem will provide anaerobic coverage. Await further culture results. Will follow. History of Present Illness Reason for Consultation: Bilateral lower extremity cellulitis Attending Physician: Srikanth Huynh MD History of Present Illness 69-year-old female with history of congestive heart failure, hypertension, hyperlipidemia, who was admitted to the hospital with several days of progressively worsening pain, redness, swelling, and foul-smelling drainage from her legs. She is unclear whether she is sought medical attention for this in the past. She did not report any significant fever or chills. She has been started empirically on vancomycin, ertapenem, and metronidazole. Cultures are pending. X-rays of leg showed no evidence of bone infection. Allergies Allergy/AdvReac Type Severity Reaction Status Date / Time Penicillins Allergy Unknown PT STATES Verified 03/03/19 05:00 "THINK THE DOSE WAS TO HIGH"-CAN'T REMEMBER REACT Home Medications Home Medications Medication Instructions Recorded Confirmed Type acetaminophen 1,000 mg PO Q6H PRN 06/21/18 03/03/19 History ibuprofen 200 - 600 mg PO Q4 PRN 06/21/18 03/03/19 History aspirin 81 mg PO DAILY #30 tab 06/26/18 03/03/19 Rx furosemide 40 mg PO DAILY PRN #30 tab 06/26/18 03/03/19 Rx lisinopril 5 mg PO DAILY 03/03/19 03/03/19 History Patient History Medical History Hyperlipemia (Chronic) Acute combined systolic and diastolic congestive heart failure (Acute) Atrial ectopy (Chronic) HTN (hypertension) (Chronic) Visual impairment (Chronic) Surgical History No pertinent past surgical history Family History Other No pertinent family history Social History Preferred Language: Irish Communication Ability: Effective Beliefs That Will Affect Care: None Current Living Situation: Family Other Information That Helps Us Care for You: No Feels Safe at Home: Yes Safety Concerns: Feels Safe At This Time Smoking Status: Current some day smoker Tobacco Type: cigarettes Cigarettes Per Day: 10 Hx Alcohol Use: No Hx Substance Use: No Review of Systems Review of Systems: All systems reviewed & are unremarkable except as noted in HPI & below Physical Exam Constitutional: WD/WN, vitals as above comfortable; no acute distress Eyes: PERRL, conjunctivae normal, anicteric sclerae ENMT: external ear and nose normal, oropharynx normal Neck: trachea midline, no thyromegaly neck nontender Respiratory: normal respiratory effort, lungs clear to auscultation normal percussion; no respiratory distress Cardiovascular: Rate/Rhythm: regular rate and regular rhythm Heart Sounds: normal S1 and normal S2; no gallop, no murmur and no cardiac rub Gastrointestinal (Abdomen): normal bowel sounds, soft, nontender, no hepatosplenomegaly Musculoskeletal: no cyanosis or clubbing, extremities motor strength 5/5 Skin: + wound (Superficial wounds with drainage, foul smell) and + erythema (Both legs below the knee); no rashes Neurologic: moves all extremities and awake; no focal motor deficits Motor/Sensory: no sensory deficit Psychiatric: A+Ox3, euthymic affect Lymphatic: no cervical or axillary lymphadenopathy no inguinal lymphadenopathy Results & Data Vital Signs (Past 12 Hours) Vital Signs Temp Pulse Pulse Resp BP BP Pulse Ox 03/03/19 10:20 36.5 C 94 H 18 122/73 98 03/03/19 09:55 79 102/57 L 03/03/19 09:43 36.5 C 102 H 18 115/71 100 03/03/19 09:30 36.3 C L 92 H 18 111/62 100 03/03/19 09:15 36.7 C 104 H 18 111/65 98 03/03/19 07:34 36.6 C 115 H 22 153/88 H 92 03/03/19 05:20 92 H 18 128/76 92 03/03/19 01:57 106 H 18 131/85 91 Laboratory Results Short CBC 03/03/19 Range/Units 02:15 WBC 16.69 H (4.8-10.8) K/uL Hgb 13.4 (12.0-16.0) g/dL Hct 42.7 (37-47) % Plt Count 393 (130-400) K/uL BMP 03/03/19 03/03/19 02:15 05:11 Sodium 135 L Potassium 3.6 Chloride 100 Carbon Dioxide 33 H BUN 16 Creatinine 0.77 Glucose 104 H Calcium 8.4 L Liver Function 03/03/19 03/03/19 Range/Units 02:15 05:11 Total Bilirubin 2.7 H (0.2-1) mg/dl AST 16 (15-37) U/L ALT 22 (12-78) U/L Alkaline Phosphatase 182 H (45-117) U/L Albumin 2.0 L (3.4-5.0) gm/dl Diagnostic Findings XR tibia fibula RT 2V CLINICAL HISTORY: B/L LEG INFECTION COMPARISON: None FINDINGS: Alignment of the right knee is anatomic. There is a small osteochondroma arising from the medial metaphysis of the right tibia. There is no fracture or evidence for osteomyelitis within the right tibia or fibula. Soft tissue swelling is noted with possible varicosities. There is moderate right knee osteoarthritis. IMPRESSION: No acute fracture. No evidence for osteomyelitis within the right tibia or fibula. Electronically signed by: Will Gonzales M.D. 03/03/2019 8:02 AM Dictated: 03/03/19 0801 cc: ~ XR tibia fibula LT 2V CLINICAL HISTORY: B/L LEG INFECTION COMPARISON: None FINDINGS: There is no fracture or evidence of osteomyelitis within the left tibia or fibula. There is no left knee joint effusion. Note is made of moderate left knee osteoarthritis. There is left lower leg soft tissue swelling. IMPRESSION: No acute fracture. No evidence for osteomyelitis within the left tibia or fibula. Electronically signed by: Will Gonzales M.D. 03/03/2019 8:03 AM
[2019-03-03] MEDS ORDERED: FUROSEMIDE 40 MG in SYRINGE 0 ML IV SCH ×2 (11:30→17:00)
[2019-03-03] MEDS: metroNIDAZOLE 500 MG/100 ML BAG IV SCH ×2 (13:11→21:32)
[2019-03-03] MEDS: VANCOMYCIN HCL 1,250 MG in SODIUM CHLORIDE 0.9% 250 ML IV SCH (17:28)
--- NOTE | 2019-03-03 21:20 | Hospitalist Progress Note ---
Date of Service March 03, 2019 Assessment & Plan (1) Bilateral cellulitis of lower leg: Appears to be chronic venous stasis with bacterial overgrowth due to ulcerations. Continue antibiotics and local wound care. (2) Sepsis: Stable. Antibiotics. This essentially seems to be resolving quite quickly (3) Acute combined systolic and diastolic congestive heart failure: Lasix IV. No need to continue albumin. Seems to be improving. Likely be able to return to as needed regimen by tomorrow with ongoing improvement. (4) Visual impairment: Patient is visually impaired, which has significantly hindered her ability to report on symptoms. (5) Atrial fibrillation: Appears to have new A. fib. Check echo and TSH. Will warrant anticoagulation, but does not have an emergent need, and given that her legs may need debridement, we will hold off on anticoagulation until that decision is been clearly determined. Subjective Seen in follow-up from early admission same day. She seems to be feeling better. She is upset with herself or not seeking care sooner. Results & Data Vital Signs (Past 12 Hours) Vital Signs Temp Pulse Resp BP BP Pulse Ox 03/03/19 19:07 36.4 C L 89 20 107/68 98 03/03/19 16:10 36.5 C 94 H 20 113/69 98 03/03/19 11:24 36.5 C 94 H 16 98/59 L 98 03/03/19 10:20 36.5 C 94 H 18 122/73 98 03/03/19 09:55 79 102/57 L 03/03/19 09:43 36.5 C 102 H 18 115/71 100 03/03/19 09:30 36.3 C L 92 H 18 111/62 100 (1) Sepsis Sepsis type: sepsis due to unspecified organism Qualified Code(s): A41.9 - Sepsis, unspecified organism
[2019-03-04] MEDS: ACETAMINOPHEN 325 MG TAB PO PRN (01:37)
[2019-03-04] MEDS: VANCOMYCIN HCL 1,250 MG in SODIUM CHLORIDE 0.9% 250 ML IV SCH ×2 (03:12→16:11)
[2019-03-04] MEDS ORDERED: POTASSIUM CITRATE 10 MEQ TAB PO ONE (05:35)
[2019-03-04 06:14] LABS: Basophils # (auto) 0.04 K/uL (0-0.2); Basophils % (auto) 0.3 %; Eosinophils # (auto) 0.16 K/uL (0-0.5); Eosinophils % (auto) 1.3 %; Hematocrit (blood only) 37.2 % (37-47); Hemoglobin 11.4 g/dL (12.0-16.0); Immature Granulocytes # (auto) 0.29 K/uL (0.00-0.02); Immature Granulocytes % (auto) 2.3 %; Lymphocytes # (auto) 0.96 K/uL (1.2-3.4); Lymphocytes % (auto) 7.5 %; Mean Corpuscular Hgb Conc 30.6 g/dL (32-36); Mean Corpuscular Volume 93.2 fL (80-100); Mean Platelet Volume 8.7 fL (7.4-10.4); Monocytes % (auto) 7.8 %; Neutrophils # (auto) 10.29 K/uL (1.4-6.5); Neutrophils % (auto) 80.8 %; Platelet Count 364 K/uL (130-400); RDW Coefficient of Variation 16.8 % (11.5-14.5); RDW Standard Deviation 57.3 fL (36.4-46.3); Red Blood Count 3.99 M/uL (4.2-5.4); White Blood Count 12.74 K/uL (4.8-10.8)
[2019-03-04 06:29] LABS: INR 1.2 (0.9-1.1); Partial Thromboplastin Ratio 1.1
[2019-03-04 06:49] LABS: Albumin Level 1.7 gm/dl (3.4-5.0); BUN Creatinine Ratio 16.2 (10-20); Calcium 7.9 mg/dl (8.5-10.1); Creatinine Clr Calc Pharmacy 82.7 ml/min; Est GFR (African American) 97.7; Est GFR (Non-African American) 84.3; Potassium 3.4 mmol/L (3.5-5.1)
[2019-03-04 06:51] LABS: Albumin Globulin Ratio 0.4 (0.9-2); Bilirubin,Total 1.5 mg/dl (0.2-1); Globulin 4.1 gm/dl (2.5-4.0); Total Protein 5.8 gm/dl (6.4-8.2)
[2019-03-04] MEDS: metroNIDAZOLE 500 MG/100 ML BAG IV SCH (07:06)
[2019-03-04] MEDS: ACETAMINOPHEN 1000 MG/100 ML IV IV PRN (09:58)
[2019-03-04] MEDS ORDERED: OXYCODONE/ACETAMINOPHEN 5mg/325mg TAB PO PRN (10:13)
[2019-03-04] MEDS: ERTAPENEM SODIUM 1,000 MG in SODIUM CHLORIDE 0.9% 50 ML IV SCH (10:25)
[2019-03-04] MEDS: SACUBITRIL-VALSARTAN 24-26 MG TAB PO SCH ×3 (10:39→20:35)
[2019-03-04] MEDS: ASPIRIN 81 MG ECTAB PO SCH (11:18)
[2019-03-04] MEDS: OXYCODONE/ACETAMINOPHEN 5mg/325mg TAB PO PRN ×2 (11:19→16:24)
[2019-03-04] MEDS: AMMONIUM LACTATE 12% LOTION 225 GM BTL EXT SCH (13:08)
--- NOTE | 2019-03-04 15:25 | Family Medicine Progress Note ---
Date of Service March 04, 2019 Assessment & Plan (1) Bilateral cellulitis of lower leg: Ms. Rob is a 69 year old woman who is here for bilateral lower leg infections. Bilateral Cellulitis * Continuing antibiotics vancomycin and ertapenem * tylenol and percocet for pain control * Likely arose secondary to chronic venous stasis CHF with poor ejection fraction * Echo showing EF 25-30% with global hypokinesis and mild concentric hypertrophy. b/l atrial enlargement, and weakened systolic right ventricle as well. * Unknown source, not currently being followed by cardiology or primary care consistently to my knowledge * Consulted cardiology due to several runs of nonsustained v tach. May require IED placement. * Started patient on entresto * Will need good follow up on d/c Atrial Fibrillation * Not sure if brief run of atrial fibrillation or run of atrial tachycardia * Appreciate cardiology input before starting on anticoagulation Living situation * Not sure how safe home is, have not seen any family yet and patient had neglected medical care for some time, patient is blind and would require assistance on discharge to safely treat her cellulitic legs. (2) Sepsis: (3) Acute exacerbation of CHF (congestive heart failure): (4) Atrial ectopy: (5) Elevated troponin: (6) Visual impairment: Supervising Physician Co-Signing Physician Notes I personally examined the patient and verified all song points of history and exam, discussed case, and agree with decision making with Dr Brandt. Legs feeling better. Breathing okay. Vitals noted, in general she is pleasant no distress. HEENT normal cephalic atraumatic mucous members are moist. Breathing unlabored no accessory muscle use good effort. Skin shows no rashes no pallor or icterus. Legs show ulcerations and chronic venous stasis changes without tracking erythema. Sepsisrelated to venous stasis ulcers with overgrowth cellulitisimproving continue IV antibiotics and local care. Chronic systolic CHFadd Entresto. Continue to follow closely, does not appear to need diuresis right now. Subjective Liane Arreguin is resting comfortably this morning. She is very tangential with her speech and has trouble holding a conversation or answering questions directly. She does report that she has had a large amount of pain today in her legs especially when she moves. Review of Systems Review of Systems: Unobtainable due to cognitive status Physical Exam Constitutional: well developed, well nourished and + thin; no acute distress and not ill appearing Neck: normal visual inspection Respiratory: normal respiratory effort; no respiratory distress and does not use accessory muscles Auscultation: lungs clear to auscultation bilaterally and + diminished lung sounds (globally); no crackles, no rales, no rhonchi and no wheezes Cardiovascular: Rate/Rhythm: regular rate and regular rhythm Extremities: + edema (B/L legs) Gastrointestinal (Abdomen): normal bowel sounds, soft, nontender, no he patosplenomegaly Skin: + wound (bilateral infected legs, foul smelling, blistering yellow crusted.) No subcutaneous air. Results & Data Vital Signs (Past 12 Hours) Vital Signs Temp Pulse Resp BP BP Pulse Ox 03/04/19 11:58 36.6 C 96 H 20 114/73 96 03/04/19 08:39 36.6 C 97 H 18 120/74 96 03/04/19 03:45 36.7 C 85 16 112/73 96 Resident Activity Tracking Resident Involvement: Resident Care Provided Care Provided: Adult Hospital Medicine (1) Acute exacerbation of CHF (congestive heart failure) Heart failure type: unspecified Qualified Code(s): I50.9 - Heart failure, unspecified (2) Sepsis Sepsis type: sepsis due to unspecified organism Qualified Code(s): A41.9 - Sepsis, unspecified organism
--- NOTE | 2019-03-04 17:31 | Infectious Disease Progress Nt ---
Date of Service March 04, 2019 Assessment & Plan (1) Bilateral cellulitis of lower leg: Patient with bilateral lower extremity cellulitis in the setting of what appears to be chronic venous stasis disease, likely with polymicrobial infection given foul-smelling drainage. Would continue on vancomycin and ertapenem, can discontinue metronidazole as ertapenem will provide anaerobic coverage. Await further culture results. Will follow. Subjective Patient seen in follow-up for bilateral lower extremity cellulitis. Still complaining of severe pain in both legs. Remains afebrile. Blood cultures are negative. Appears to be tolerating antibiotics without apparent difficulty. Review of Systems Review of Systems: All systems reviewed & are unremarkable except as noted in HPI & below Physical Exam Constitutional: WD/WN, vitals as above comfortable; no acute distress Eyes: PERRL, conjunctivae normal, anicteric sclerae ENMT: external ear and nose normal, oropharynx normal Neck: trachea midline, no thyromegaly neck nontender Respiratory: normal respiratory effort, lungs clear to auscultation normal percussion; no respiratory distress Cardiovascular: Rate/Rhythm: regular rate and regular rhythm Heart Sounds: normal S1 and normal S2; no gallop, no murmur and no cardiac rub Gastrointestinal (Abdomen): normal bowel sounds, soft, nontender, no hepatosplenomegaly Musculoskeletal: no cyanosis or clubbing, extremities motor strength 5/5 No spinal tenderness, no joint swelling or erythema Skin: + wound (Superficial wounds with drainage, foul smell) and + erythema (Both legs below the knee); no rashes Neurologic: moves all extremities and awake; no focal motor deficits Motor/Sensory: no sensory deficit Psychiatric: A+Ox3, euthymic affect Lymphatic: no cervical or axillary lymphadenopathy no inguinal lymphadenopathy Results & Data Vital Signs (Past 12 Hours) Vital Signs Temp Pulse Resp BP BP Pulse Ox 03/04/19 16:00 36.4 C L 92 H 16 104/64 92 03/04/19 11:58 36.6 C 96 H 20 114/73 96 03/04/19 08:39 36.6 C 97 H 18 120/74 96 Laboratory Results Short CBC 03/04/19 Range/Units 05:59 WBC 12.74 H (4.8-10.8) K/uL Hgb 11.4 L (12.0-16.0) g/dL Hct 37.2 (37-47) % Plt Count 364 (130-400) K/uL BMP 03/04/19 05:59 Sodium 136 Potassium 3.4 L Chloride 100 Carbon Dioxide 32 BUN 12 Creatinine 0.72 Glucose 129 H Calcium 7.9 L Liver Function 03/04/19 Range/Units 05:59 Total Bilirubin 1.5 H (0.2-1) mg/dl AST 9 L (15-37) U/L ALT 14 (12-78) U/L Alkaline Phosphatase 148 H (45-117) U/L Albumin 1.7 L (3.4-5.0) gm/dl Diagnostic Findings Microbiology 03/03/19 03:36 Blood Aerobic Blood Culture - Preliminary No growth in Aerobic bottle after 24 hours. 03/03/19 03:36 Blood Anaerobic Blood Culture - Preliminary No growth in Anaerobic bottle after 24 hours. 03/03/19 03:38 Blood Aerobic Blood Culture - Preliminary No growth in Aerobic bottle after 24 hours. 03/03/19 03:38 Blood Anaerobic Blood Culture - Preliminary No growth in Anaerobic bottle after 24 hours.
[2019-03-05] MEDS ORDERED: VANCOMYCIN TROUGH ONE (03:30)
[2019-03-05 03:54] LABS: Basophils # (auto) 0.04 K/uL (0-0.2); Basophils % (auto) 0.2 %; Eosinophils # (auto) 0.19 K/uL (0-0.5); Eosinophils % (auto) 1.2 %; Hematocrit (blood only) 39.5 % (37-47); Hemoglobin 12.6 g/dL (12.0-16.0); Immature Granulocytes # (auto) 0.71 K/uL (0.00-0.02); Immature Granulocytes % (auto) 4.4 %; Lymphocytes # (auto) 1.61 K/uL (1.2-3.4); Mean Corpuscular Hgb Conc 31.9 g/dL (32-36); Mean Corpuscular Volume 90.6 fL (80-100); Mean Platelet Volume 8.3 fL (7.4-10.4); Monocytes # (auto) 1.25 K/uL (0.11-0.59); Monocytes % (auto) 7.7 %; Neutrophils # (auto) 12.36 K/uL (1.4-6.5); Neutrophils % (auto) 76.5 %; Platelet Count 468 K/uL (130-400); RDW Coefficient of Variation 16.9 % (11.5-14.5); RDW Standard Deviation 55.6 fL (36.4-46.3); Red Blood Count 4.36 M/uL (4.2-5.4); White Blood Count 16.16 K/uL (4.8-10.8)
[2019-03-05 04:07] LABS: INR 1.2 (0.9-1.1); Prothrombin Time 11.9 Seconds (9.0-12.0)
[2019-03-05 04:11] LABS: Albumin Level 1.7 gm/dl (3.4-5.0); BUN Creatinine Ratio 17.9 (10-20); Calcium 7.8 mg/dl (8.5-10.1); Creatinine Clr Calc Pharmacy 99.2 ml/min; Est GFR (African American) 106.3; Est GFR (Non-African American) 91.7; Magnesium 1.8 mg/dl (1.8-2.4); Potassium 3.9 mmol/L (3.5-5.1)
[2019-03-05 04:13] LABS: Albumin Globulin Ratio 0.4 (0.9-2); Bilirubin,Total 1.2 mg/dl (0.2-1); Globulin 3.9 gm/dl (2.5-4.0); Total Protein 5.6 gm/dl (6.4-8.2)
[2019-03-05] MEDS: VANCOMYCIN HCL 1,250 MG in SODIUM CHLORIDE 0.9% 250 ML IV SCH ×3 (05:00→18:00)
--- NOTE | 2019-03-05 08:31 | Pharmacy Report ---
Pharmacy Abx Dose Short Note - Date of Service March 05, 2019 - Assessment & Plan A/P 69 year old F receiving vancomycin for treatment of skin and skin structure infxn. Day # 3/10 of antimicrobial therapy. This morning's trough at [facility] is therapeutic, 16.2mcg/mL. Her renal fxn has improved since admission. Level will be ordered for tomorrow to ensure we are achieving therapeutic levels with a fluctuation in renal fxn. Current pt population p'kinetics: t1/2=8hrs, ke=0.086. Pharmacy will continue to follow and will adjust dose/frequency as necessary. Thank you.
[2019-03-05] MEDS: ERTAPENEM SODIUM 1,000 MG in SODIUM CHLORIDE 0.9% 50 ML IV SCH (09:00)
[2019-03-05] MEDS: ACETAMINOPHEN 325 MG TAB PO PRN (09:25)
[2019-03-05] MEDS: ASPIRIN 81 MG ECTAB PO SCH (09:27)
[2019-03-05] MEDS: SACUBITRIL-VALSARTAN 24-26 MG TAB PO SCH ×2 (09:28→20:40)
--- NOTE | 2019-03-05 09:39 | Family Medicine Progress Note ---
Date of Service March 05, 2019 Assessment & Plan (1) Bilateral cellulitis of lower leg: Ms. Rob is a 69 year old woman who is here for bilateral lower leg infections. Bilateral Cellulitis * Continuing antibiotics vancomycin and ertapenem * No systemic symptoms pain well controlled * tylenol and percocet for pain control * Likely arose secondary to chronic venous stasis CHF with poor ejection fraction * Echo showing EF 25-30% with global hypokinesis and mild concentric hypertrophy. b/l atrial enlargement, and weakened systolic right ventricle as well. * Unknown source, not currently being followed by cardiology or primary care consistently to my knowledge * Consulted cardiology due to several runs of nonsustained v tach. May require IED placement. * One 7 beat run of V tach overnight * Patient started on entresto this admission * Will need consistent follow up on d/c Atrial Fibrillation * Not sure if brief run of atrial fibrillation or run of atrial tachycardia * Appreciate cardiology input before starting on anticoagulation Living situation * Not sure how safe home is, have not seen any family yet and patient had neglected medical care for some time, patient is blind and would require assistance on discharge to safely treat her cellulitic legs. F/E/N: Heart Healthy Diet DVT PPx: Lovenox Dispo: Med/Surg with tele (2) Sepsis: (3) Acute exacerbation of CHF (congestive heart failure): (4) Atrial ectopy: (5) Elevated troponin: (6) Visual impairment: Supervising Physician Co-Signing Physician Notes I personally examined the patient and verified all song points of history and exam, discussed case, and agree with decision making with Dr Brandt. Length feeling better, she noted her some dressing changes but otherwise doing well. She is somewhat evasive in discussing the safety of her home situation and does not want us reaching out to her children that she lives with. Overtly say she is not safe at home however she does not say that at home is a good situation. Right now she would like to go to rehab after discharge. Vitals noted, in general she is pleasant no distress. HEENT normal cephalic atraumatic mucous members are moist. Breathing unlabored no accessory muscle use good effort. Skin shows no rashes no pallor or icterus. Legs show ulcerations and chronic venous stasis changes without tracking erythema. Sepsisrelated to venous stasis ulcers with overgrowth cellulitisimproving, continue IV antibiotics, although likely will be other transition to oral tomorrow and local care. Chronic systolic CHFtolerating Entresto, add beta-alis. Continue to follow closely, does not appear to need diuresis right now. Will likely need ICD related to EF and ventricular arrhythmias [facility] after discharge from the hospital DVT prophylaxisLovenox Subjective Ms. Liane Arreguin tells me she was feeling a bit paranoid last night and was worried that I was going to experiment on her because she was . We discussed this and she said she can get like that sometimes but she does not believe it to be true currently. She tells me she has no pain this morning and that she feels a little bit better and is anxious to get home. She tells me she has been sent home with oxygen in the past, but she never uses it. Currently on room air as she took her O2 out of her nose, but O2 sat hovering around 90 Review of Systems Constitutional: no fever, no chills and no sweats Respiratory: no cough and no dyspnea Cardiovascular: no chest pain, no dyspnea and no palpitations Gastrointestinal: no abdominal pain, no nausea and no vomiting Physical Exam Constitutional: well developed, well nourished and + thin; no acute distress and not ill appearing Neck: normal visual inspection Respiratory: normal respiratory effort; no respiratory distress and does not use accessory muscles Auscultation: lungs clear to auscultation bilaterally and + diminished lung sounds (globally); no crackles, no rales, no rhonchi and no wheezes Cardiovascular: Rate/Rhythm: regular rate and regular rhythm Extremities: + edema (B/L legs) Gastrointestinal (Abdomen): normal bowel sounds, soft, nontender, no hepatosplenomegaly Skin: + wound (bilateral infected legs, foul smelling, blistering yellow crusted.) Psychiatric: Orientation: alert and oriented x 3 Apperance: + disheveled Thought Content: + paranoid Results & Data Vital Signs (Past 12 Hours) Vital Signs Temp Pulse Pulse Resp BP Pulse Ox 03/05/19 07:44 36.4 C L 94 H 18 97/63 L 91 03/05/19 06:25 89 03/05/19 03:46 36.4 C L 86 18 91/61 L 93 03/04/19 23:20 36.6 C 94 H 20 98/62 L 95 03/04/19 22:20 93 H Resident Activity Tracking Resident Involvement: Resident Care Provided Care Provided: Adult Hospital Medicine (1) Acute exacerbation of CHF (congestive heart failure) Heart failure type: unspecified Qualified Code(s): I50.9 - Heart failure, unspecified (2) Sepsis Sepsis type: sepsis due to unspecified organism Qualified Code(s): A41.9 - Sepsis, unspecified organism
[2019-03-05] MEDS: OXYCODONE/ACETAMINOPHEN 5mg/325mg TAB PO PRN ×2 (12:45→18:07)
[2019-03-05] MEDS: ENOXAPARIN INJ 40 MG/0.4 ML SYR SQ SCH (12:46)
--- NOTE | 2019-03-05 15:44 | Infectious Disease Progress Nt ---
Date of Service March 05, 2019 Assessment & Plan (1) Bilateral cellulitis of lower leg: Patient with bilateral lower extremity cellulitis in the setting of what appears to be chronic venous stasis disease, likely with polymicrobial infection given foul-smelling drainage. Would continue on vancomycin and ertapenem, can discontinue metronidazole as ertapenem will provide anaerobic coverage. Await further culture results. Will follow. Subjective Patient seen in follow-up for bilateral lower extremity cellulitis. States the pain in her legs are better. Decrease in foul-smelling drainage. No fever. Review of Systems Review of Systems: All systems reviewed & are unremarkable except as noted in HPI & below Physical Exam Constitutional: WD/WN, vitals as above comfortable; no acute distress Eyes: PERRL, conjunctivae normal, anicteric sclerae ENMT: external ear and nose normal, oropharynx normal Neck: trachea midline, no thyromegaly neck nontender Respiratory: normal respiratory effort, lungs clear to auscultation normal percussion; no respiratory distress Cardiovascular: Rate/Rhythm: regular rate and regular rhythm Heart Sounds: normal S1 and normal S2; no gallop, no murmur and no cardiac rub Gastrointestinal (Abdomen): normal bowel sounds, soft, nontender, no hepatosplenomegaly Musculoskeletal: no cyanosis or clubbing, extremities motor strength 5/5 Skin: + wound (Superficial wounds with drainage, foul smell) and + erythema (Both legs below the knee); no rashes Neurologic: moves all extremities and awake; no focal motor deficits Motor/Sensory: no sensory deficit Psychiatric: A+Ox3, euthymic affect Lymphatic: no cervical or axillary lymphadenopathy no inguinal lymphadenopathy Results & Data Vital Signs (Past 12 Hours) Vital Signs Temp Pulse Pulse Resp BP Pulse Ox 03/05/19 15:26 36.4 C L 86 18 103/71 92 03/05/19 12:14 36.4 C L 84 20 105/70 94 03/05/19 07:44 36.4 C L 94 H 18 97/63 L 91 03/05/19 06:25 89 03/05/19 03:46 36.4 C L 86 18 91/61 L 93 Laboratory Results Short CBC 03/05/19 Range/Units 03:35 WBC 16.16 H (4.8-10.8) K/uL Hgb 12.6 (12.0-16.0) g/dL Hct 39.5 (37-47) % Plt Count 468 H (130-400) K/uL BMP 03/05/19 03:35 Sodium 137 Potassium 3.9 Chloride 100 Carbon Dioxide 34 H BUN 11 Creatinine 0.60 Glucose 88 Calcium 7.8 L Liver Function 03/05/19 Range/Units 03:35 Total Bilirubin 1.2 H (0.2-1) mg/dl AST 12 L (15-37) U/L ALT 12 (12-78) U/L Alkaline Phosphatase 141 H (45-117) U/L Albumin 1.7 L (3.4-5.0) gm/dl Diagnostic Findings Microbiology 03/03/19 03:36 Blood Aerobic Blood Culture - Preliminary No growth in Aerobic bottle after 48 hours. 03/03/19 03:36 Blood Anaerobic Blood Culture - Preliminary No growth in Anaerobic bottle after 48 hours. 03/03/19 03:38 Blood Aerobic Blood Culture - Preliminary No growth in Aerobic bottle after 48 hours. 03/03/19 03:38 Blood Anaerobic Blood Culture - Preliminary No growth in Anaerobic bottle after 48 hours.
[2019-03-05] MEDS: AMMONIUM LACTATE 12% LOTION 225 GM BTL EXT SCH (16:50)
--- NOTE | 2019-03-05 18:34 | Cardiology Consultation ---
Date of Consultation March 05, 2019 Assessment & Plan (1) Cardiomyopathy: Patient is known to have a cardiomyopathy from prior admissions. By her report previously she had an evaluation in [place] which may have included a cardiac catheterization. She is not known to have coronary disease. Her echocardiogram is more suggestive of a nonischemic etiology. She did not report symptoms of exertional angina or chest pain which would be more consistent with an ischemic etiology for her cardiomyopathy. In the past she was prescribed a standard regimen for treatment. Whether she has been compliant with his medical regimen is unclear. She does appear to be well compensated currently. She received a dose of diuretic at the time of admission and did have significant effect. Her lung examination currently is normal. She did not describe symptoms of decompensated heart failure such as exertional dyspnea or orthopnea. At this point I think initiation of standard medical therapy would be of value. I would start with a beta alis such as carvedilol or metoprolol. She Has been prescribed Entresto, and I suppose we can see how she tolerates this medication. I would favor initiation of beta-blockade over this medication especially in the setting of her arrhythmia. Hopefully she will tolerate both medications. We will need to monitor her volume status closely. In the setting of worsening dyspnea, reduced oxygenation or evidence of worsening edema additional dose of diuretic should be administered. (2) Nonsustained ventricular tachycardia: She appears to have had a couple of very brief runs of ventricular tachycardia lasting a few beats. She was not symptomatic. While this is not an indication for device therapy, her degree of left ventricular dysfunction is in the range of patients who are advised to have a prophylactic ICD. However, I do not believe we can confirm compliance with her medical therapy at this point. I would not advocate implantation of an ICD at this time. She has an active infection and has not been on an adequate trial of medical therapy with any certainty. Additionally, her understanding of her current disease process is poor I am not confident she would consent or be an appropriate candidate for defibrillator in that respect. Given the arrhythmia, however, I think initiation of beta-blockade therapy would be helpful. She has currently been started on metoprolol tartrate which can be switched to metoprolol succinate at the time of discharge. (3) Atrial tachycardia: She had very brief runs of what appears to be an ectopic atrial tachycard ia. No atrial fibrillation. No need for therapy outside of the beta-alis noted above. No indication for anticoagulation. I will be away from the hospital for the next 2 days. Please address any additional questions regarding her cardiac care to the [facility] electronic die maker material control specialist History of Present Illness Reason for Consultation: Ventricular tachycardia Requesting Physician: Rikki Attending Physician: Scott Shin DO History of Present Illness Patient is a 69-year-old woman who has been previously admitted to [facility] with symptoms of decompensated heart failure. This admission was primarily a result of bilateral lower extremity cellulitis. Patient has noted swelling in her lower extremities as well as weeping from open wounds. She appears to have severe skin infection currently requiring intravenous antibiotics. The patient did not report a history of significant breathing difficulty. She has not been limited by significant dyspnea. She denies symptoms of orthopnea or paroxysmal nocturnal dyspnea. She does not report having done a lot of activity recently due to the loss of her . She appears to been quite depressed recently and had little motivation for activity. She did not report symptoms of chest discomfort. She has been unaware of palpitations. She did notice some swelling in her lower extremities but attributed this to the application of a cream provided by her friend. She claims to be compliant with medical therapy. She states that both her daughter in the pharmacist help her organized her medications. However, she has not been evaluated by a physician in some time. She is not convinced she has significant medical problems or even a heart condition. Allergies Allergy/AdvReac Type Severity Reaction Status Date / Time Penicillins Allergy Unknown PT STATES Verified 03/03/19 05:00 "THINK THE DOSE WAS TO HIGH"-CAN'T REMEMBER REACT Home Medications Home Medications Medication Instructions Recorded Confirmed Type acetaminophen 1,000 mg PO Q6H PRN 06/21/18 03/03/19 History ibuprofen 200 - 600 mg PO Q4 PRN 06/21/18 03/03/19 History aspirin 81 mg PO DAILY #30 tab 06/26/18 03/03/19 Rx furosemide 40 mg PO DAILY PRN #30 tab 06/26/18 03/03/19 Rx lisinopril 5 mg PO DAILY 03/03/19 03/03/19 History Patient History Medical History Hyperlipemia (Chronic) Acute combined systolic and diastolic congestive heart failure (Acute) Atrial ectopy (Chronic) HTN (hypertension) (Chronic) Visual impairment (Chronic) Surgical History No pertinent past surgical history Family History Other No pertinent family history Social History Preferred Language: Cameroonian Communication Ability: Effective Beliefs That Will Affect Care: None Current Living Situation: Family Other Information That Helps Us Care for You: No Feels Safe at Home: Yes Safety Concerns: Feels Safe At This Time Smoking Status: Current some day smoker Tobacco Type: cigarettes Cigarettes Per Day: 10 Hx Alcohol Use: No Hx Substance Use: No Review of Systems Review of Systems: All systems reviewed & are unremarkable except as noted in HPI & below Physical Exam Physical Exam: She is alert and oriented x3. Mood affect appear normal. She answered all questions appropriately. Her mood very considerably during the course of the interview from quite depressed to quite lively. HEENT: Sclerae are anicteric. Neuro: Cranial nerves intact Neck: Examination of the submandibular region did not reveal any significant lymphadenopathy. Carotids are palpable bilaterally and free of bruits on auscultation. There was no evidence of jugular venous distention. The thyroid was not enlarged. Lungs: Lungs are clear to auscultation bilaterally. There are no rales wheezes or rhonchi. She has normal respiratory effort without use of accessory muscles. There is normal pulmonary excursion. Cardiac: The rhythm was regular. S1 and S2 were normal. There are no murmurs on examination. The PMI was not markedly displaced on palpation. Abdomen: The abdomen was soft and nontender. Extremities: Patient has bilateral radial pulses that are equal in intensity. There is no evidence cyanosis or clubbing. Lower extremities were wrapped. Skin: There are no rashes noted on examination today. Results & Data Vital Signs (Past 12 Hours) Vital Signs Temp Pulse Pulse Resp BP Pulse Ox 03/05/19 15:26 36.4 C L 86 18 103/71 92 03/05/19 14:20 82 03/05/19 12:14 36.4 C L 84 20 105/70 94 03/05/19 07:44 36.4 C L 94 H 18 97/63 L 91 Laboratory Results Abnormal Lab Results 03/05/19 03/05/19 03/05/19 03:35 03:35 03:35 WBC 16.16 H RBC 4.36 Hgb 12.6 Hct 39.5 MCV 90.6 MCH 28.9 MCHC 31.9 L RDW Std Deviation 55.6 H RDW Coeff of Malia 16.9 H Plt Count 468 H MPV 8.3 Immature Gran % (Auto) 4.4 Neut % (Auto) 76.5 Lymph % (Auto) 10.0 [place] % (Auto) 7.7 Eos % (Auto) 1.2 Baso % (Auto) 0.2 Immature Gran # (Auto) 0.71 H Neut # (Auto) 12.36 H Lymph # (Auto) 1.61 [place] # (Auto) 1.25 H Eos # (Auto) 0.19 Baso # (Auto) 0.04 PT INR Sodium 137 Potassium 3.9 Chloride 100 Carbon Dioxide 34 H Anion Gap 3.0 BUN 11 Creatinine 0.60 Est Cr Clr Drug Dosing 99.2 Est GFR ( Amer) 106.3 Est GFR (Non-Af Amer) 91.7 BUN/Creatinine Ratio 17.9 Glucose 88 Calcium 7.8 L Magnesium 1.8 Total Bilirubin 1.2 H AST 12 L ALT 12 Alkaline Phosphatase 141 H C-Reactive Protein Total Protein 5.6 L Albumin 1.7 L Globulin 3.9 Albumin/Globulin Ratio 0.4 L Vancomycin Trough 16.2 03/05/19 03/05/19 03:35 15:02 WBC RBC Hgb Hct MCV MCH MCHC RDW Std Deviation RDW Coeff of Malia Plt Count MPV Immature Gran % (Auto) Neut % (Auto) Lymph % (Auto) [place] % (Auto) Eos % (Auto) Baso % (Auto) Immature Gran # (Auto) Neut # (Auto) Lymph # (Auto) [place] # (Auto) Eos # (Auto) Baso # (Auto) PT 11.9 INR 1.2 H Sodium Potassium Chloride Carbon Dioxide Anion Gap BUN Creatinine Est Cr Clr Drug Dosing Est GFR ( Amer) Est GFR (Non-Af Amer) BUN/Creatinine Ratio Glucose Calcium Magnesium Total Bilirubin AST ALT Alkaline Phosphatase C-Reactive Protein 6.40 H Total Protein Albumin Globulin Albumin/Globulin Ratio Vancomycin Trough Diagnostic Findings Chest x-ray the time admission suggested mild pulmonary congestion and ca rdiomegaly An echocardiogram performed at the time of admission revealed severely reduced left ventricular systolic function, enlarged right ventricle and mildly reduced right ventricular function. Pulmonary pressures were elevated. ECG Additional Comments: Normal sinus rhythm without acute ST or T-wave changes
[2019-03-06] MEDS: OXYCODONE/ACETAMINOPHEN 5mg/325mg TAB PO PRN ×2 (00:13→21:46)
[2019-03-06] MEDS ORDERED: VANCOMYCIN TROUGH ONE (03:30)
[2019-03-06 03:34] LABS: Hematocrit (blood only) 40.5 % (37-47); Hemoglobin 12.2 g/dL (12.0-16.0); Mean Corpuscular Hgb Conc 30.1 g/dL (32-36); Mean Corpuscular Volume 93.5 fL (80-100); Mean Platelet Volume 8.6 fL (7.4-10.4); Platelet Count 446 K/uL (130-400); RDW Coefficient of Variation 16.9 % (11.5-14.5); RDW Standard Deviation 58.4 fL (36.4-46.3); Red Blood Count 4.33 M/uL (4.2-5.4); White Blood Count 15.43 K/uL (4.8-10.8)
[2019-03-06 03:50] LABS: INR 1.1 (0.9-1.1); Prothrombin Time 11.4 Seconds (9.0-12.0)
[2019-03-06 03:53] LABS: Albumin Level 1.6 gm/dl (3.4-5.0); BUN Creatinine Ratio 14.1 (10-20); Calcium 7.8 mg/dl (8.5-10.1); Creatinine Clr Calc Pharmacy 94.5 ml/min; Est GFR (African American) 104.6; Est GFR (Non-African American) 90.2; Magnesium 1.9 mg/dl (1.8-2.4); Potassium 3.9 mmol/L (3.5-5.1)
[2019-03-06 03:55] LABS: Albumin Globulin Ratio 0.4 (0.9-2); Basophils # (auto) 0.04 K/uL (0-0.2); Basophils % (auto) 0.3 %; Bilirubin,Total 1.1 mg/dl (0.2-1); Eosinophils # (auto) 0.22 K/uL (0-0.5); Eosinophils % (auto) 1.4 %; Immature Granulocytes # (auto) 0.84 K/uL (0.00-0.02); Immature Granulocytes % (auto) 5.4 %; Lymphocytes # (auto) 1.93 K/uL (1.2-3.4); Lymphocytes % (auto) 12.5 %; Monocytes # (auto) 1.03 K/uL (0.11-0.59); Monocytes % (auto) 6.7 %; Neutrophils # (auto) 11.37 K/uL (1.4-6.5); Neutrophils % (auto) 73.7 %; Total Protein 5.6 gm/dl (6.4-8.2)
[2019-03-06] MEDS: VANCOMYCIN HCL 1,250 MG in SODIUM CHLORIDE 0.9% 250 ML IV SCH (04:02)
--- NOTE | 2019-03-06 08:26 | Pharmacy Report ---
Pharmacy Abx Dose Short Note - Date of Service March 06, 2019 - Assessment & Plan Assessment 69 year old F receiving IV Vancomycin and Ertapenem (not a consult) for treatment of BL cellulitis of lower leg Day # 4 of antimicrobial therapy. Plan Vancomycin * Trough level of 15.7 mcg/mL is therapeutic * Continue dose of 1250 mg IV every 12 hours * Goal trough level for cellulitis : ~15 mcg/mL * Trough level ordered for: 03/08/19 @ 0330 to ensure Vancomycin remains within therapeutic range Pharmacy will continue to follow and will adjust dose/frequency as necessary. Thank you.
[2019-03-06] MEDS: ERTAPENEM SODIUM 1,000 MG in SODIUM CHLORIDE 0.9% 50 ML IV SCH (09:03)
[2019-03-06] MEDS: METOPROLOL TARTRATE 25 MG TAB PO SCH ×2 (09:04→20:30)
[2019-03-06] MEDS: ENOXAPARIN INJ 40 MG/0.4 ML SYR SQ SCH (09:04)
[2019-03-06] MEDS: ASPIRIN 81 MG ECTAB PO SCH (09:05)
[2019-03-06] MEDS: SACUBITRIL-VALSARTAN 24-26 MG TAB PO SCH ×2 (09:05→20:35)
[2019-03-06] MEDS: AMMONIUM LACTATE 12% LOTION 225 GM BTL EXT SCH (09:06)
--- NOTE | 2019-03-06 09:43 | Family Medicine Progress Note ---
Date of Service March 06, 2019 Assessment & Plan (1) Bilateral cellulitis of lower leg: Ms. Rob is a 69 year old woman who is here for bilateral lower leg infections. Bilateral Cellulitis * Transitioned to oral antibiotics today Doxycycline and keflex * No systemic symptoms pain well controlled * tylenol and percocet for pain control * Likely arose secondary to chronic venous stasis CHF with poor ejection fraction * Echo showing EF 25-30% with global hypokinesis and mild concentric hypertrophy. b/l atrial enlargement, and weakened systolic right ventricle as well. * Unknown source, not currently being followed by cardiology or primary care consistently to my knowledge * Consulted cardiology due to several runs of nonsustained v tach. May require IED placement. * One 7 beat run of V tach overnight * Cardiology consulted, recommended starting beta alis and if pressure is too low for both dropping the entresto for now. Will follow cardiology recommendations and have her follow up on discharge. * patient is a candidate for Implantable cardioverter defibrillator, but unsure if she will have interest in undergoing procedure as she is adamant there is nothing wrong with her heart. Living situation * Not sure how safe home is, have not seen any family yet and patient had neglected medical care for some time, patient is blind and would require assistance on discharge to safely treat her cellulitic legs. * Office of Aging contacted to follow up on patient's home welfare. * Patient admant that we do not contact her family. F/E/N: Heart Healthy Diet DVT PPx: Lovenox Dispo: Med/Surg with tele (2) Sepsis: (3) Acute exacerbation of CHF (congestive heart failure): (4) Atrial ectopy: (5) Elevated troponin: (6) Visual impairment: Subjective Liane Arreguin resting comfortably this morning, became very distraught when I told her about my recommended medication changes. She does not believe there is anything wrong with her heart. She says her legs feel much better today and she has a good appetite. No fevers, chills, or rigors. Wants to go home as soon as possible. Review of Systems Review of Systems: All systems reviewed & are unremarkable except as noted in HPI & below Physical Exam Constitutional: well developed, well nourished and + thin; no acute distress and not ill appearing Neck: normal visual inspection Respiratory: normal respiratory effort; no respiratory distress and does not use accessory muscles Auscultation: lungs clear to auscultation bilaterally and + diminished lung sounds (globally); no crackles, no rales, no rhonchi and no wheezes Cardiovascular: Rate/Rhythm: regular rate and regular rhythm Extremities: + edema (B/L legs) Gastrointestinal (Abdomen): normal bowel sounds, soft, nontender, no hepatosplenomegaly Skin: + wound (bandaged bilaterally, clean and less tender. ) Psychiatric: Orientation: alert and oriented x 3 Apperance: + disheveled Thought Content: + paranoid Results & Data Vital Signs (Past 12 Hours) Vital Signs Temp Pulse Pulse Resp BP Pulse Ox 03/06/19 07:49 36.5 C 98 H 18 103/64 94 03/06/19 07:21 101 H 03/06/19 07:16 96 H 03/06/19 04:18 36.7 C 91 H 20 102/64 94 03/06/19 00:10 101 H 03/05/19 22:21 36.5 C 99 H 18 102/56 L 97 Resident Activity Tracking Resident Involvement: Resident Care Provided Care Provided: Adult Hospital Medicine (1) Sepsis Sepsis type: sepsis due to unspecified organism Qualified Code(s): A41.9 - Sepsis, unspecified organism (2) Acute exacerbation of CHF (congestive heart failure) Heart failure type: unspecified Qualified Code(s): I50.9 - Heart failure, unspecified
[2019-03-06] MEDS ORDERED: cephALEXin 500 MG CAP PO SCH (13:00)
[2019-03-06] MEDS: CEFDINIR 300 MG CAP PO SCH (20:36)
[2019-03-06] MEDS ORDERED: DOXYCYCLINE HYCLATE 100 MG CAP PO SCH (21:00)
[2019-03-06] MEDS: POLYETHYLENE (MIRALAX) 17 GM PACK PO PRN (21:45)
[2019-03-07] MEDS: OXYCODONE/ACETAMINOPHEN 5mg/325mg TAB PO PRN ×3 (05:06→21:37)
[2019-03-07 07:16] LABS: Basophils # (auto) 0.06 K/uL (0-0.2); Basophils % (auto) 0.4 %; Eosinophils # (auto) 0.18 K/uL (0-0.5); Eosinophils % (auto) 1.2 %; Hematocrit (blood only) 37.8 % (37-47); Hemoglobin 11.7 g/dL (12.0-16.0); Immature Granulocytes # (auto) 0.43 K/uL (0.00-0.02); Lymphocytes # (auto) 1.71 K/uL (1.2-3.4); Lymphocytes % (auto) 11.8 %; Mean Corpuscular Volume 92.9 fL (80-100); Monocytes # (auto) 1.11 K/uL (0.11-0.59); Monocytes % (auto) 7.7 %; Neutrophils % (auto) 75.9 %; Platelet Count 451 K/uL (130-400); RDW Coefficient of Variation 17.1 % (11.5-14.5); RDW Standard Deviation 57.8 fL (36.4-46.3); Red Blood Count 4.07 M/uL (4.2-5.4); White Blood Count 14.49 K/uL (4.8-10.8)
[2019-03-07] MEDS: SACUBITRIL-VALSARTAN 24-26 MG TAB PO SCH ×2 (07:35→21:37)
[2019-03-07] MEDS: CEFDINIR 300 MG CAP PO SCH ×2 (07:36→21:44)
[2019-03-07] MEDS: AMMONIUM LACTATE 12% LOTION 225 GM BTL EXT SCH (07:36)
[2019-03-07] MEDS: ASPIRIN 81 MG ECTAB PO SCH (07:36)
[2019-03-07] MEDS: ENOXAPARIN INJ 40 MG/0.4 ML SYR SQ SCH (07:36)
[2019-03-07] MEDS: METOPROLOL TARTRATE 25 MG TAB PO SCH ×2 (07:36→21:37)
[2019-03-07 07:39] LABS: Calcium 8.1 mg/dl (8.5-10.1); Creatinine Clr Calc Pharmacy 97.6 ml/min; Est GFR (African American) 105.7; Est GFR (Non-African American) 91.2; Potassium 3.8 mmol/L (3.5-5.1)
--- NOTE | 2019-03-07 09:24 | Family Medicine Progress Note ---
Date of Service March 07, 2019 Assessment & Plan (1) Bilateral cellulitis of lower leg: Ms. Rob is a 69 year old woman who is here for bilateral lower leg infections. Bilateral Cellulitis * Likely arose secondary to chronic venous stasis * On oral cefdinir * No systemic symptoms pain well controlled * White count down slightly * tylenol and percocet for pain control CHF with poor ejection fraction * Echo showing EF 25-30% with global hypokinesis and mild concentric hypertrophy. b/l atrial enlargement, and weakened systolic right ventricle as well. * Unknown source, not currently being followed by cardiology or primary care consistently to my knowledge * Consulted cardiology due to several runs of nonsustained v tach throughout the day. May require IED placement. * Cardiology consulted, recommended starting beta alis and if pressure is too low for both dropping the entresto for now. Will follow cardiology recommendations and have her follow up on discharge. * Patient took beta alis and entresto today, but has been refusing due to distrust. Will continue to try to show her the benefit of moving forward with therapy. * patient is a candidate for Implantable cardioverter defibrillator, but unsure if she will have interest in undergoing procedure as she is adamant there is nothing wrong with her heart. Living situation * Not sure how safe home is, have not seen any family yet and patient had neglected medical care for some time, patient is blind and would require assistance on discharge to safely treat her cellulitic legs. * Office of Aging contacted to follow up on patient's home welfare. * Patient adamant that we do not contact her family. F/E/N: Heart Healthy Diet DVT PPx: Lovenox Dispo: Med/Surg with tele (2) Sepsis: (3) Acute exacerbation of CHF (congestive heart failure): (4) Atrial ectopy: (5) Elevated troponin: (6) Visual impairment: Supervising Physician Co-Signing Physician Notes I personally examined the patient and verified all song points of history and exam, discussed case, and agree with decision making with Dr Brandt. no new complaints. extensive discussions w pt on risks/benefits of heart medications. She definitely has a different world view, quite internally consistent but not really consistent with being able to have a discussion of risks and benefits. After a lot of attempting, it seems that while there is may be a degree of denial that she has any heart condition whatsoever, she did seem to at least understand the risk benefit of what we were discussing to be able to make an informed decision. Vitals noted, in general she is pleasant, no distress. HEENT normal cephalic atraumatic mucous members are moist. Breathing unlabored no accessory muscle use good effort. Skin shows no rashes no pallor or icterus. Sepsisrelated to venous stasis ulcers with overgrowth cellulitisimproving, tolerating Omnicef well. Continue to follow. [facility] Chronic systolic CHFideally would be on Entresto and metoprolol. See above as far as discussions of risk and benefit. As above noted, she seems to have a very different overall world view and life philosophy that, while internally consistent, is very difficult to have a discussion of risk and benefit within. Further she does seem to have a degree of denial about actually having any kind of heart condition. She seems to have a bit of a decent understanding of the risks we are concerned about and right now seems to be making an informed decision declining medications, but we will definitely want to have ongoing discussions. Will likely need ICD related to EF and [facility] Mental statuscontinue to follow. Right now she is in a safe environment, and will be moving to a safe environment and [facility]. See Dr. Brandt's notes otherwise in regards to her overall living situation. DVT prophylaxisLovenox Subjective Ms Arreguin tells me she took her beta alis this morning. She says she now regrets it and tells me that she is very distrustful of doctors and the hospital. Talked to patient for approx 20-30 min and attempted to explain our goals and purpose in suggesting these medicines for her care and she said she would consider it moving forward. She tells me she is feeling much better No complaints overnight, no new symptoms. Leg pain is well controlled. Review of Systems Review of Systems: All systems reviewed & are unremarkable except as noted in HPI & below Physical Exam Constitutional: well developed, well nourished and + thin; no acute distress and not ill appearing Neck: normal visual inspection Respiratory: normal respiratory effort; no respiratory distress and does not use accessory muscles Auscultation: lungs clear to auscultation bilaterally and + diminished lung sounds (globally); no crackles, no rales, no rhonchi and no wheezes Cardiovascular: Rate/Rhythm: regular rate and regular rhythm Extremities: + edema (B/L legs) Gastrointestinal (Abdomen): normal bowel sounds, soft, nontender, no hepatosplenomegaly Skin: + wound (bandaged bilaterally, clean and less tender. ) Psychiatric: Orientation: alert and oriented x 3 Apperance: + disheveled Thought Content: + paranoid Results & Data Vital Signs (Past 12 Hours) Vital Signs Temp Pulse Pulse Resp BP Pulse Ox 03/07/19 08:00 104 H 03/07/19 07:42 36.3 C L 96 H 18 110/56 L 90 03/07/19 04:39 36.7 C 88 20 114/71 94 03/07/19 00:00 85 03/06/19 22:14 36.9 C 85 18 114/73 95 (1) Acute exacerbation of CHF (congestive heart failure) Heart failure type: unspecified Qualified Code(s): I50.9 - Heart failure, unspecified (2) Sepsis Sepsis type: sepsis due to unspecified organism Qualified Code(s): A41.9 - Sepsis, unspecified organism
[2019-03-07] MEDS: POLYETHYLENE (MIRALAX) 17 GM PACK PO PRN (17:45)
[2019-03-08] MEDS: OXYCODONE/ACETAMINOPHEN 5mg/325mg TAB PO PRN (03:29)
[2019-03-08] MEDS ORDERED: VANCOMYCIN TROUGH ONE (03:30)
[2019-03-08] MEDS: CEFDINIR 300 MG CAP PO SCH ×2 (09:06→20:37)
[2019-03-08] MEDS: METOPROLOL TARTRATE 25 MG TAB PO SCH ×2 (09:06→20:29)
[2019-03-08] MEDS: ASPIRIN 81 MG ECTAB PO SCH (09:06)
[2019-03-08] MEDS: ENOXAPARIN INJ 40 MG/0.4 ML SYR SQ SCH (09:06)
[2019-03-08] MEDS: SACUBITRIL-VALSARTAN 24-26 MG TAB PO SCH ×2 (09:07→20:30)
[2019-03-08] MEDS: AMMONIUM LACTATE 12% LOTION 225 GM BTL EXT SCH (09:08)
--- NOTE | 2019-03-08 16:07 | Infectious Disease Progress Nt ---
Date of Service March 08, 2019 Assessment & Plan (1) Bilateral cellulitis of lower leg: Patient with bilateral lower extremity cellulitis in the setting of what appears to be chronic venous stasis disease, likely with polymicrobial infection given foul-smelling drainage. Patient now transition to oral antibiotics with cefdinir. Will follow clinical response. Subjective Seen in follow-up for lower extremity cellulitis. Complaining of some pain in her legs. Drainage is less. No fever. Review of Systems Review of Systems: All systems reviewed & are unremarkable except as noted in HPI & below Physical Exam Constitutional: WD/WN, vitals as above comfortable; no acute distress Eyes: PERRL, conjunctivae normal, anicteric sclerae ENMT: external ear and nose normal, oropharynx normal Neck: trachea midline, no thyromegaly neck nontender Respiratory: normal respiratory effort, lungs clear to auscultation normal percussion; no respiratory distress Cardiovascular: Rate/Rhythm: regular rate and regular rhythm Heart Sounds: normal S1 and normal S2; no gallop, no murmur and no cardiac rub Gastrointestinal (Abdomen): normal bowel sounds, soft, nontender, no hepatosplenomegaly Musculoskeletal: no cyanosis or clubbing, extremities motor strength 5/5 Skin: + wound (Superficial wounds with drainage, foul smell) and + erythema (Both legs below the knee); no rashes Neurologic: moves all extremities and awake; no focal motor deficits Motor/Sensory: no sensory deficit Psychiatric: A+Ox3, euthymic affect Lymphatic: no cervical or axillary lymphadenopathy no inguinal lymp hadenopathy Results & Data Vital Signs (Past 12 Hours) Vital Signs Temp Pulse Pulse Resp BP Pulse Ox 03/08/19 15:00 36.9 C 96 H 20 106/67 94 03/08/19 11:42 36.7 C 85 20 119/72 96 03/08/19 07:38 36.7 C 92 H 20 118/72 90 03/08/19 07:31 84 03/08/19 04:20 37.1 C 88 20 111/72 96 Laboratory Results Laboratory Results - last 48 hr 03/07/19 03/07/19 03/07/19 06:16 07:03 07:03 WBC 14.49 H RBC 4.07 L Hgb 11.7 L Hct 37.8 MCV 92.9 MCH 28.7 MCHC 31.0 L RDW Std Deviation 57.8 H RDW Coeff of Malia 17.1 H Plt Count 451 H MPV 8.0 Immature Gran % (Auto) 3.0 Neut % (Auto) 75.9 Lymph % (Auto) 11.8 [place] % (Auto) 7.7 Eos % (Auto) 1.2 Baso % (Auto) 0.4 Immature Gran # (Auto) 0.43 H Neut # (Auto) 11.00 H Lymph # (Auto) 1.71 [place] # (Auto) 1.11 H Eos # (Auto) 0.18 Baso # (Auto) 0.06 Sodium 137 Potassium 3.8 Chloride 101 Carbon Dioxide 34 H Anion Gap 2.0 L BUN 8 Creatinine 0.61 Est Cr Clr Drug Dosing 97.6 Est GFR ( Amer) 105.7 Est GFR (Non-Af Amer) 91.2 BUN/Creatinine Ratio 13.0 Glucose 132 H Calcium 8.1 L Magnesium 2.0 Diagnostic Findings Microbiology 03/03/19 03:36 Blood Aerobic Blood Culture - Final No growth in Aerobic bottle after 5 days. 03/03/19 03:36 Blood Anaerobic Blood Culture - Final No growth in Anaerobic bottle after 5 days. 03/03/19 03:38 Blood Aerobic Blood Culture - Final No growth in Aerobic bottle after 5 days. 03/03/19 03:38 Blood Anaerobic Blood Culture - Final No growth in Anaerobic bottle after 5 days.
--- NOTE | 2019-03-08 16:28 | Psychiatric Consultation ---
Date of Consultation March 08, 2019 Impression / Recommendations Impression 69-year-old female admitted medically due to bilateral infection of lower extremities. Seen on psychiatric consult service due to concern regarding thought process, rule out primary thought disorder or hallucinations. Pt does appear to be in good spirits despite recent health concerns, and verbalizes desire to be her own advocate - desiring for home health and other services to take the expectation off her children. Thought process is circumstantial, and she is at times difficult to redirect. Her reports, though unclear if reliable, do not seem to be delusional in nature. She denies auditory or visual hallucinations. At this time, there is not sufficient criteria to suggest a formal thought disorder; and patient does not provide any information suggesting a prior history of psychiatric treatment. Pt denies known family history of mental health conditions. Will attempt to gather collateral information from family and from consulting provider to determine the presence of any other concerns. With known information, there is no clear indication to begin psychiatric medications. Given denial of SI, HI, delusional though process, and hallucinations, patient does not meet criteria for inpatient psychiatric admission. Can follow-up with patient if any new information is provided to suggest the patient may require more intensive psychiatric treatment. Pt declines other services from us at this time. Dr. Lorena Judge was directly involved in review and discussion of the patient's case and participated in medical decision making regarding treatment recommendations. CPT Code Initial Consultation: 05853 Psych History Identifying Data 69-year-old female admitted medically on 03/03/19 due to bilateral cellulitis of the lower leg. Pt presented to the ED due to concern regarding the wounds, but offers a limited history. Pt is visually impaired. Psychiatric consultation is requested to evaluate patient for "hallucinations, schizophrenia, or delusions." Information is gathered from hospital documentation and the patient herself, though reliability of patient's history is unclear. Chief Complaint "It's a little embarrassing, I find out I have bed bugs." History of Present Illness Liane Arreguin is a 69-year-old female admitted medically on 03/03/2019 due to an infection in her lower extremities bilaterally. Patient has a PMH of HLD, atrial ectopy, HTN, CHF, and skin infection. She is legally blind. Psychiatric consultation was requested to assess for "schizophrenia or delusions." Pt's case was reviewed with psychiatric nurse liaison. Pt was seen by this provider to gather additional information. Pt states she was hospitalized due to "trying to get my health and stuff back together." She verbalized that several close friends or family members have in the past 8-12 months, and this caused her to re-evaluate how she was caring for herself. Pt states, "I took a sad look at life and realized that no one would want this for me, I had to take care of myself." Pt reports she is somewhat embarrassed to be in the hospital, but feels she made the right choice to take her health seriously. Pt states she has noticed some lower mood recently, as she states she is adjusting to some decline in her health. 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 Pt is optimistic about the situation and is able to process through ways in which she can request additional help. Pt states, "I'm just coping. I'm just trying to cope with everything." Pt states she has not noticed a significant change in her mood or anxiety recently. Sleep has been decent. She denies any significant change in weight or appetite. Pt denies SI and states she would never attempt to end her life because of her love for her grandchildren. Pt denies auditory or visual hallucinations. She denies significant fluctuations in mood or energy. Pt denies any other significant psychiatric symptoms. She does admit that she is interested in having a home health aid at discharge as, "I can't rely on my family to be there for me. A lady like me would end up getting lost in the shuffle, and I need to take care of me, not wait on them to do it." Pt denies feeling there are other services we can provide for her at this time. Past Psychiatric History Previous Psych History: None reported Current Psychiatric Diagnosis: None reported Previous Psych Admissions: None History of Previous Suicide Attempt: No Past Medication Trials: None Allergies Allergy/AdvReac Type Severity Reaction Status Date / Time Penicillins Allergy Unknown PT STATES Verified 03/03/19 05:00 "THINK THE DOSE WAS TO HIGH"-CAN'T REMEMBER REACT Home Medications Home Medications Medication Instructions Recorded Confirmed Type acetaminophen 1,000 mg PO Q6H PRN 06/21/18 03/03/19 History ibuprofen 200 - 600 mg PO Q4 PRN 06/21/18 03/03/19 History aspirin 81 mg PO DAILY #30 tab 06/26/18 03/03/19 Rx furosemide 40 mg PO DAILY PRN #30 tab 06/26/18 03/03/19 Rx lisinopril 5 mg PO DAILY 03/03/19 03/03/19 History Family History Patient denies a known family history of mental health conditions Substance Abuse History Patient admits to smoking between 3 and 7 cigarettes daily. Patient denies routine use of alcohol. She denies any other use of marijuana, or other illicit substances. Personal History Living Arrangements: Home Living Arrangements Comments: States she is currently living with daughter, son-in-law, and 3 of her grandchildren Employment Status: Self-Employed (States she is an artist, selling her work on several [employer]) Marital Status: ( recently passed) Beliefs That Will Affect Care: Taoist (Restoration) Patient History Medical History Hyperlipemia (Chronic) Acute combined systolic and diastolic congestive heart failure (Acute) Atrial ectopy (Chronic) HTN (hypertension) (Chronic) Visual impairment (Chronic) Surgical History No pertinent past surgical history Family History Other No pertinent family history Social History Preferred Language: Tam[place] Communication Ability: Effective Beliefs That Will Affect Care: Taoist (Restoration) Current Living Situation: Family Other Information That Helps Us Care for You: No Feels Safe at Home: Yes Safety Concerns: Feels Safe At This Time Smoking Status: Current some day smoker Tobacco Type: cigarettes Cigarettes Per Day: 10 Hx Alcohol Use: No Hx Substance Use: No Physical Exam Psychiatric: Orientation: alert, oriented x 3 and cooperative Apperance: appropriately dressed (in hospital gown), + disheveled (unkempt hair, matted in some areas, other sections are braided) and appeared stated age Eye Contact: good eye contact severe visual impairment, though looks in this provider's general direction for duration of interview Motor Behavior: no abnormal motor movements (observed while laying in bed) Speech: normal rate/rhythm/volume of speech Affect: euthymic affect and mood congruent with affect "I'm doing ok. I'm coping." Thought Process: clear/coherent thought process and + circumstantial thought process Thought Content: reality based without delusions Suicidal Thoughts: denies suicidal thoughts, denies suicidal plan and denies suicidal intent Homicidal Thoughts: denies homicidal thoughts Hallucinations: no auditory hallucinations and no visual hallucinations Cognition: attention grossly intact and language grossly intact Estimated Intelligence: consistent with education level Insight: + fair insight Judgement: + fair judgement Vital Signs (Past 24 Hours): Last Vital Signs Temp 36.9 C 03/08/19 15:00 Pulse 96 H 03/08/19 15:00 Resp 20 03/08/19 15:00 BP 106/67 03/08/19 15:00 Pulse Ox 94 03/08/19 15:00 Review of Systems Constitutional: reports recent infection of "ankles" bilaterally Cardiovascular: denied Respiratory: denied Gastrointestinal: reports ongoing gas and bloating Neurological: denied Psychiatric: denies symptoms other than stated above Total of at least 10 systems reviewed, pertinent positives as above and in HPI. Results & Data Medications Administered Acetaminophen (Ofirmev) 1,000 mg IV Q8H PRN PRN Reason: Pain or Fever Stop: 04/02/19 07:43 Last Admin: 03/04/19 09:58 Dose: 1,000 mg Documented by: [id number] Admin: 03/03/19 15:00 Dose: 1,000 mg Documented by: [id number] Admin: 03/03/19 08:08 Dose: 1,000 mg Documented by: [id number] Acetaminophen (Tylenol) 650 mg PO Q4H PRN PRN Reason: Pain or Fever Stop: 04/02/19 07:43 Last Admin: 03/05/19 09:25 Dose: 650 mg Documented by: [id number] Admin: 03/04/19 01:37 Dose: 650 mg Documented by: [id number] Aspirin (Ecotrin Ectab) 81 mg PO DAILY ANTOLIN Stop: 04/02/19 08:59 Last Admin: 03/08/19 09:06 Dose: 81 mg Documented by: [id number] Admin: 03/07/19 07:36 Dose: 81 mg Documented by: [id number] Admin: 03/06/19 09:05 Dose: 81 mg Documented by: [id number] Admin: 03/05/19 09:27 Dose: 81 mg Documented by: [id number] Admin: 03/04/19 11:18 Dose: 81 mg Documented by: [id number] Admin: 03/03/19 09:21 Dose: 81 mg Documented by: [id number] Cefdinir (Omnicef) 300 mg PO BID ANTOLIN Stop: 03/16/19 20:59 Last Admin: 03/08/19 09:06 Dose: 300 mg Documented by: [id number] Admin: 03/07/19 21:44 Dose: 300 mg Documented by: [id number] Admin: 03/07/19 07:36 Dose: 300 mg Documented by: [id number] Admin: 03/06/19 20:36 Dose: 300 mg Documented by: [id number] Enoxaparin Sodium (Lovenox) 40 mg SQ QAM ANTOLIN Stop: 04/04/19 09:59 Last Admin: 03/08/19 09:06 Dose: 40 mg Documented by: [id number] Admin: 03/07/19 07:36 Dose: 40 mg Documented by: [id number] Admin: 03/06/19 09:04 Dose: Not Given Documented by: [id number] Admin: 03/05/19 12:46 Dose: 40 mg Documented by: [id number] Lactic Acid (Amlactin) 1 gm EXT DAILY ANTOLIN Stop: 04/03/19 08:59 Last Admin: 03/08/19 09:08 Dose: 1 gm Documented by: [id number] Admin: 03/07/19 07:36 Dose: 1 gm Documented by: [id number] Admin: 03/06/19 09:06 Dose: 1 gm Documented by: [id number] Admin: 03/05/19 16:50 Dose: 1 gm Documented by: [id number] Admin: 03/04/19 13:08 Dose: 1 gm Documented by: [id number] Metoprolol Tartrate (Lopressor) 12.5 mg PO BID ANTOLIN Stop: 04/05/19 08:59 Last Admin: 03/08/19 09:06 Dose: 12.5 mg Documented by: [id number] Admin: 03/07/19 21:37 Dose: 12.5 mg Documented by: [id number] Admin: 03/07/19 07:36 Dose: 12.5 mg Documented by: [id number] Admin: 03/06/19 20:30 Dose: 12.5 mg Documented by: [id number] Admin: 03/06/19 09:04 Dose: Not Given Documented by: [id number] Oxycodone/Acetaminophen (Percocet 5mg/325mg) 1 tab PO Q4H PRN PRN Reason: Severe Pain Stop: 03/18/19 10:12 Last Admin: 03/08/19 03:29 Dose: 1 tab Documented by: [id number] Admin: 03/07/19 21:37 Dose: 1 tab Documented by: [id number] Admin: 03/07/19 17:45 Dose: 1 tab Documented by: [id number] Admin: 03/07/19 05:06 Dose: 1 tab Documented by: [id number] Admin: 03/06/19 21:46 Dose: 1 tab Documented by: [id number] Admin: 03/06/19 00:13 Dose: 1 tab Documented by: [id number] Admin: 03/05/19 18:07 Dose: 1 tab Documented by: [id number] Admin: 03/05/19 12:45 Dose: 1 tab Documented by: [id number] Admin: 03/04/19 16:24 Dose: 1 tab Documented by: [id number] Admin: 03/04/19 11:19 Dose: 1 tab Documented by: [id number] Polyethylene Glycol (Miralax Powder Packet) 17 gm PO DAILY PRN PRN Reason: Constipation Stop: 04/02/19 07:43 Last Admin: 03/07/19 17:45 Dose: 17 gm Documented by: [id number] Admin: 03/06/19 21:45 Dose: 17 gm Documented by: [id number] Sacubitril/Valsartan (Entresto 24/26mg) 1 tab PO BID ANTOLIN Stop: 04/03/19 09:29 Last Admin: 03/08/19 09:07 Dose: 1 tab Documented by: [id number] Admin: 03/07/19 21:37 Dose: 1 tab Documented by: [id number] Admin: 03/07/19 07:35 Dose: Not Given Documented by: [id number] Admin: 03/06/19 20:35 Dose: 1 tab Documented by: [id number] Admin: 03/06/19 09:05 Dose: Not Given Documented by: [id number] Admin: 03/05/19 20:40 Dose: 1 tab Documented by: [id number] Admin: 03/05/19 09:28 Dose: 1 tab Documented by: [id number] Admin: 03/04/19 20:35 Dose: Not Given Documented by: [id number] Admin: 03/04/19 10:39 Dose: 1 tab Documented by: [id number]
--- NOTE | 2019-03-08 16:31 | Family Medicine Progress Note ---
Date of Service March 08, 2019 Assessment & Plan (1) Atrial fibrillation: Liane is a 69-year-old female with a past medical history of hyperlipidemia, hypertension, systolic/diastolic congestive heart failure, and atrial ectopy who presented to the hospital with bilateral lower extremity rach lulitis with abscess and skin erosion and who was admitted for cellulitis. She was found to have a diminished EF of 25 to 30% on echo during admission. Cellulitis, bilateral Has chronic venous stasis 2/2 HFrEF. She is blind which contributes to difficulty with wound care. Initially started on vancomycin, ertapenem, and flagyl on 03/03/2019. Converted to oral cefdinir 300 mg daily p.o. starting 03/06/2019 Blood cultures x2 negative ID consulted Duration of treatment course pending clinical response, consider 14-day course of therapy Congestive heart failure with reduced EF 25-30% Reduced EF, global hypokinesis, and concentric hypertrophy noted on echo. Cardiology consulted, patient also had nonsustained V. tach during admission. Cardiology recommended starting beta-alis at this time, blood pressure does not tolerate can drop Entresto but patient currently tolerating both well. Implantable defibrillator was discussed, but recommended against at this time. Aspirin 81 mg daily, metoprolol tartrate 12.5 mg twice daily, Entresto twice daily Concern for acute psychosis Patient expresses various bizarre thought processes and is circumferential/occasionally tangential on visit. She has made some claims of other people present in her room when another, although this history is somewhat limited as she is blind. She also expresses some disconnected thoughts about how are is being created around her by her being in the hospital. There is been some mention of unusual thought process in previous notes during this admission, however nothing is noted from prior admissions. Psychiatry consulted for evaluation, continue to follow Social Patient's passed last year, she has been at home in the care of 2 daughters since. Concern was expressed over the degree of severity of her cellulitis and scabies on admission, office of aging was contacted earlier and is following. Diet Heart healthy Disposition Will likely be discharged to assisted pending resolution of above DVT prophylaxis Enoxaparin 40 mg subcu daily (2) Acute exacerbation of CHF (congestive heart failure): (3) Nonsustained ventricular tachycardia: (4) Bilateral cellulitis of lower leg: Supervising Physician Co-Signing Physician Notes I personally examined the patient and verified all song points of history and exam, discussed case, and agree with decision making with the resident. Sepsisrelated to venous stasis ulcers with overgrowth cellulitisimproving, tolerating antibiotics. Chronic systolic CHF Entresto and metoprolol. Mental status change - No previous psychiatric diagnosis that I could find in the chart although given my initial interaction with her today I am concerned for such. Today when I told her that a bed was available [facility] she stated that she wanted one more day here to appreciate the "art." At first I wondered if she was confused as to her location but she was very clear in that she was in a hospital. When I told her that there was not "art" to see in a hospital, she told me that I do not see "art" the way that she sees "art." Her speech had a dramatic aspect to it as well. The concern is differentiating her current status from a acute mental status change (secondary to infection), hospital psychosis and/or delirium, versus declaration of underlying psychiatric diagnosis (schizophrenia versus personality disorder). Judging by her overall exam and blood work I do not suspect advancing infection; when you questioned her she is clearly oriented so I am not sure if delirium/hospital psychosis would be an appropriate diagnosis. Agree with consultation of psychiatry. I called and discussed the case with the psychiatric liaison who will see the patient later today. DVT prophylaxisLovenox Disposition [facility] Subjective Evelena is seen at bedside this morning. She is nondistressed, but requests that she would like to stay in the hospital until tomorrow. She would like to see what her heart can do" what happens here ". She reports that "everyone has something "but is not sure why everyone is telling her her heart is ill when she feels fine. She denies chest pain, chest pressure, fever, chills. She reports her legs feel much less painful than yesterday. Review of Systems Review of Systems: Constitutional: Denies fever, chills, malaise, weight change Eyes: Patient is blind. ENT: Denies sore throat, chest congestion Cardiovascular: Denies Chest pain, chest pressure, palpitations Respiratory: Denies shortness of breath, cough, sputum production, difficulty breathing Gastrointestinal: Denies abdominal pain, nausea, vomiting, constipation, diarrhea Genitourinary: Denies pain with urination Musculoskeletal: Endorses some bilateral lower leg pain improved from yesterday. Otherwise denies weakness, muscle aches/pain, joint aches/pain Integumentary: Is unable to report about rashes, bruising, and lesions as she is blind. Denies itching today. Neurological: Denies headache, numbness, tingling Physical Exam Physical Exam: General: Oriented to name, date, and place. Thought process is circumferential, often tangential with some bizarre expressions. HEENT: Atraumatic, normocephalic. Pulm: Moderate to diminished air movement overall, but grossly CTAB A&P. - wheezes, -rales, -rhonchi. Symmetrical chest rise. No increase work of breat asaf. No respiratory distress. Cardiac: RRR, -mrg. Radial pulses intact and symmetrical. Abdominal: Nontender, nondistended, soft. BS present. Extremity: Bilateral lower leg 1+ edema. Legs dressed and bandaged, dressing C/D/I. No warmth appreciated. Results & Data Vital Signs (Past 12 Hours) Vital Signs Temp Pulse Pulse Resp BP Pulse Ox 03/08/19 04:20 37.1 C 88 20 111/72 96 03/08/19 04:00 81 03/07/19 23:00 36.9 C 73 20 102/66 94 03/07/19 20:22 36.8 C 95 H 16 104/64 95 Resident Activity Tracking Resident Involvement: Resident Care Provided Care Provided: Adult Hospital Medicine (1) Acute exacerbation of CHF (congestive heart failure) Heart failure type: unspecified Qualified Code(s): I50.9 - Heart failure, unspecified
[2019-03-09] MEDS: ACETAMINOPHEN 325 MG TAB PO PRN ×2 (01:45→15:30)
[2019-03-09 06:25] LABS: Hematocrit (blood only) 38.8 % (37-47); Hemoglobin 11.6 g/dL (12.0-16.0); Mean Corpuscular Hgb Conc 29.9 g/dL (32-36); Mean Corpuscular Volume 94.2 fL (80-100); Mean Platelet Volume 7.9 fL (7.4-10.4); Platelet Count 425 K/uL (130-400); RDW Coefficient of Variation 17.1 % (11.5-14.5); RDW Standard Deviation 58.7 fL (36.4-46.3); Red Blood Count 4.12 M/uL (4.2-5.4); White Blood Count 11.66 K/uL (4.8-10.8)
[2019-03-09 07:01] LABS: Creatinine Clr Calc Pharmacy 91.6 ml/min; Est GFR (African American) 103.5; Est GFR (Non-African American) 89.3
[2019-03-09] MEDS: OXYCODONE/ACETAMINOPHEN 5mg/325mg TAB PO PRN (08:20)
[2019-03-09] MEDS: ASPIRIN 81 MG ECTAB PO SCH (08:21)
[2019-03-09] MEDS: METOPROLOL TARTRATE 25 MG TAB PO SCH (08:22)
[2019-03-09] MEDS: SACUBITRIL-VALSARTAN 24-26 MG TAB PO SCH (08:22)
[2019-03-09] MEDS: CEFDINIR 300 MG CAP PO SCH (08:23)
[2019-03-09] MEDS: ENOXAPARIN INJ 40 MG/0.4 ML SYR SQ SCH (08:29)
[2019-03-09 11:46] VITALS: BP 107/66; PULSE 79; TEMP 97.7; O2SAT 96
[2019-03-09] MEDS: AMMONIUM LACTATE 12% LOTION 225 GM BTL EXT SCH (12:12)
[2019-03-09] MEDS: POLYETHYLENE (MIRALAX) 17 GM PACK PO PRN (12:12)
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
== END 2019-03-09 16:30 | DRG 871 ==
LOC: ED 01:51 → 2W 06:38 → SUATTDRO 06:58 → 2W 03-04 08:09

== ENCOUNTER 2019-11-07 02:28 | Inpatient (IN) ==
[2019-11-07] MEDS ORDERED: fentaNYL citrate 100 MCG/2 ML VIAL IV STA ×2 (02:39→04:11)
[2019-11-07 03:08] LABS: Basophils # (auto) 0.02 K/uL (0-0.2); Basophils % (auto) 0.2 %; Eosinophils # (auto) 0.05 K/uL (0-0.5); Eosinophils % (auto) 0.6 %; Hematocrit (blood only) 45.4 % (37-47); Hemoglobin 14.3 g/dL (12.0-16.0); Immature Granulocytes # (auto) 0.01 K/uL (0.00-0.02); Immature Granulocytes % (auto) 0.1 %; Lymphocytes % (auto) 9.5 %; Mean Corpuscular Hemoglobin 29.4 pg (25-34); Mean Corpuscular Hgb Conc 31.5 g/dL (32-36); Mean Corpuscular Volume 93.2 fL (80-100); Mean Platelet Volume 8.4 fL (7.4-10.4); Monocytes # (auto) 0.84 K/uL (0.11-0.59); Monocytes % (auto) 9.9 %; Neutrophils # (auto) 6.73 K/uL (1.4-6.5); Neutrophils % (auto) 79.7 %; Platelet Count 260 K/uL (130-400); RDW Coefficient of Variation 15.2 % (11.5-14.5); RDW Standard Deviation 51.9 fL (36.4-46.3); Red Blood Count 4.87 M/uL (4.2-5.4); White Blood Count 8.45 K/uL (4.8-10.8)
[2019-11-07 03:18] LABS: INR 1.1 (0.9-1.1); Prothrombin Time 10.9 Seconds (9.0-12.0)
[2019-11-07 03:27] LABS: BUN Creatinine Ratio 15.1 (10-20); Calcium 8.8 mg/dl (8.5-10.1); Creatinine Clr Calc Pharmacy 57.8 ml/min; Est GFR (African American) 63.3; Est GFR (Non-African American) 54.6; Potassium 4.6 mmol/L (3.5-5.1)
[2019-11-07] MEDS ORDERED: METOPROLOL TARTRATE 1 MG/ML VIAL IV STA ×2 (04:21→07:53)
--- NOTE | 2019-11-07 05:08 | History & Physical Report ---
Date of Service November 07, 2019 Assessment & Plan (1) Closed fracture of left hip: Neurovascularly intact. Patient in considerable pain -Admit to medical floor -Bedrest -NPO -Orthopedic Surgery consultation appreciated -Tylenol, Morphine as needed for pain -Bowel regimen -Zofran as needed for nausea (2) HTN (hypertension): Blood pressure stable at present -Hold Lisinopril for now in perioperative setting -May resume after surgery -Continue to montior BP Present on Admission?: Yes (3) Visual impairment: Noted -Delirium prevention strategies Present on Admission?: Yes (4) Tachycardia: Galileo's heart rate elevated after she was told that she may need surgery. Rate of 135, regular. Appears to be NSR on EKG, pain +anxiety most likely contributing. Metooprolol 5mg IV ordered by ER attending, patient refused. Says her HR is elevated because she is nervous. Does not wish to take any medication for it now. -Telemetry monitoring -Pain control, IVF, reassurance -Continue to monitor Present on Admission?: Yes (5) Wounds, multiple open, lower extremity: Does not appear to be acutely infected. No bleeding -Wound care -Frequent dressing changes -Counseling on proper management at home F/E/N - NSS at 80mL/hr x 1 liter, montior electroltyes and replete as needed, NPO for now Ppx - No chemoppx due to possible surgery, no mechanical ppx due to extent of BL LE wounds Code - Full Dispo - Admit to medical floor with tele Present on Admission?: Yes History of Present Illness Chief Complaint: left hip fracture Primary Care Provider: Nathan Briceno DO Liane Arreguin is a 69yo C female with history of HTN, HLP, PAF presenting after a fall at home. Patient is visually impaired. She reports walking through her kitchen this evening. Her oven was open and turned on to assist with heating the home. She tripped over the oven and thinks she did a somersault, landing on her left hip. She was unable to get up unassisted, unable to bear weight. Found to have fracture of left hip on x-ray. Patient complaining of severe discomfort in the left hip. No additional complaints at this time. ER course: Fentanyl 25mcg, 50mcg, Metoprolol 5mg IV ordered by ER attending and refused by patient Allergies Allergy/AdvReac Type Severity Reaction Status Date / Time Penicillins Allergy Unknown PT STATES Verified 03/03/19 05:00 "THINK THE DOSE WAS TO HIGH"-CAN'T REMEMBER REACT Home Medications Home Medications Medication Instructions Recorded Confirmed Type acetaminophen 1,000 mg PO Q6H PRN 06/21/18 11/07/19 History aspirin 81 mg PO DAILY #30 tab 06/26/18 11/07/19 Rx furosemide [Lasix] 40 mg PO DIRECTED 11/07/19 11/07/19 History lisinopril 5 mg PO DIRECTED 11/07/19 11/07/19 History Past Med/Surg History Social History Preferred Language: [place] Communication Ability: Effective Beliefs That Will Affect Care: [employer] (Denominational) Current Living Situation: Family Feels Safe at Home: Declines to Answer Smoking Status: Current every day smoker Tobacco Type: cigarettes ; Cigarettes Per Day: 10 ; Hx Alcohol Use: No Hx Substance Use: No Review of Systems Review of Systems: All systems reviewed & are unremarkable except as noted in HPI & below Physical Exam Physical Exam: General: patient resting comfortably, NAD, non-toxic in appearance, AA&O x 4 Skin: warm, dry, bialteral LE with severe stasis dermatitis, flaking with some areas of serosanguinous drainage, old dressings in place HEENT: NC/AT, PERRL, EOMI, anicteric sclera, conjunctiva without injection, external ear normal to inspection and nontender, nares patent, dry mucus membranes, edentulous, no oropharyngeal lesions, neck supple, trachea midline, no LAD, no thyromegaly, no JVD Heart: +S1/S2, tachycardic, regular with occasional ectopy, no m/r/g Lungs: equal air entry bilaterally, no rales/rhonchi/wheezes Abd: +BS, soft, NT/ND, no masses/organomegaly/ascites Ext: warm, 2+ pulses in UE/LE bilaterally, no clubbing/cyanosis or edema Neuro: nonfocal, patient AA&O x 4, speech intact, no facial droop, moving all extremities on command with equal strength 5/5, LLE neurovascularly intact, severe pain with movement of LLE Results & Data Vital Signs (Past 12 Hours) Vital Signs Temp Pulse Pulse Resp BP BP Pulse Ox 11/07/19 04:37 137 H 25 H 95 11/07/19 04:34 135 H 20 107/73 94 11/07/19 04:14 139 H 22 108/71 97 11/07/19 02:43 36.5 C 118 H 22 129/92 86 L Laboratory Results Lab Results 11/07/19 11/07/19 11/07/19 Range/Units 02:56 02:56 02:56 WBC 8.45 (4.8-10.8) K/uL RBC 4.87 (4.2-5.4) M/uL Hgb 14.3 (12.0-16.0) g/dL Hct 45.4 (37-47) % MCV 93.2 (80-100) fL MCH 29.4 (25-34) pg MCHC 31.5 L (32-36) g/dL RDW Std Deviation 51.9 H (36.4-46.3) fL RDW Coeff of Malia 15.2 H (11.5-14.5) % Plt Count 260 (130-400) K/uL MPV 8.4 (7.4-10.4) fL Immature Gran % (Auto) 0.1 % Neut % (Auto) 79.7 % Lymph % (Auto) 9.5 % [place] % (Auto) 9.9 % Eos % (Auto) 0.6 % Baso % (Auto) 0.2 % Immature Gran # (Auto) 0.01 (0.00-0.02) K/uL Neut # (Auto) 6.73 H (1.4-6.5) K/uL Lymph # (Auto) 0.80 L (1.2-3.4) K/uL [place] # (Auto) 0.84 H (0.11-0.59) K/uL Eos # (Auto) 0.05 (0-0.5) K/uL Baso # (Auto) 0.02 (0-0.2) K/uL PT 10.9 (9.0-12.0) Seconds INR 1.1 (0.9-1.1) Sodium 137 (136-145) mmol/L Potassium 4.6 (3.5-5.1) mmol/L Chloride 107 (98-107) mmol/L Carbon Dioxide 27 (21-32) mmol/L Anion Gap 3.0 (3-11) BUN 16 (7-18) mg/dl Creatinine 1.03 (0.6-1.2) mg/dl Est Cr Clr Drug Dosing 57.8 ml/min Est GFR ( Amer) 63.3 Est GFR (Non-Af Amer) 54.6 BUN/Creatinine Ratio 15.1 (10-20) Glucose 109 H (70-99) mg/dl Calcium 8.8 (8.5-10.1) mg/dl Code Status & VTE Plan Code Status full VTE Prophylaxis Plan VTE Prophylaxis will be ordered: No PG Care Time/CCT Total # of Minutes Spent Total Time Spent with Patient: Total time spent is greater than 50% in coordination of care (as documented) at patient's floor/unit and/or counseling patient: (1) Closed fracture of left hip Encounter type: initial encounter Qualified Code(s): S72.002A - Fracture of unspecified part of neck of left femur, initial encounter for closed fracture (2) HTN (hypertension) Hypertension type: essential hypertension Qualified Code(s): I10 - Essential (primary) hypertension
--- NOTE | 2019-11-07 06:15 | Emergency Department Note ---
Entered by Surjit Ventura acting as a scribe for ED Provider Note Name: Liane Arreguin Age: 69 Arrives Via: EMS Informant: Patient CC: Left hip pain HPI: The patient is a 69 year old female who presents to the emergency department with complaints of constant left hip pain following a fall occurring today. The patient states that she fell tonight after hitting her left leg on the oven door. She notes that she is now having left hip pain. She reports that she did not hit her head. She denies any headache, neck pain, CP, and LOC. ROS: See above HPI for pertinent positives & negatives. A total of 10 systems reviewed and were otherwise negative. Past Medical History: CHF, hypertension Past Surgical History: None Family History: None Social History: Lives with family, smokes cigarettes, does not use alcohol/drugs Home Medications: None Allergies: Penicillins Physical: Vitals: BP 129/92, Pulse 118, Resp 22, Temp 97.7 F, O2 Sat 86 Exam: GENERAL: Patient is very uncomfortable appearing and in moderate distress. EYES: No scleral icterus, unremarkable pupils. ENT: Mucous membranes moist, no nasal congestion. NECK: No masses appreciated, no meningismus, trachea is midline. RESPIRATORY: No dyspnea. Clear to auscultation and equal bilaterally. No wheeze, no rhonchi. CARDIOVASCULAR: Tachy. No murmurs, rubs, gallops appreciated. GASTROINTESTINAL: Abdomen soft, non-tender, no peritonitis. Bowel sounds positive. No masses appreciated. BACK: No midline tenderness, no CVA tenderness EXTREMITIES: No cyanosis. Edematous bilateral legs with weeping sores to the bilateral shins/calves, feet are erythematous, 2cm crush injury to left upper anterior thornton, shorted and externally rotated left leg, tenderness to palpation over left hip, pain with ROM of left hip. NEUROLOGIC: Alert and oriented, no acute motor or sensory deficits, no focal weakness, cranial nerves grossly intact. SKIN: No rash, no jaundice, no diaphoresis. ED Course: Prior Medical Record, Triage/Nursing Notes, Medications, Allergies reviewed by Me 0236: The patient was evaluated in room A10. A complete history and physical exam was performed. 0309: I rechecked the patient. Her oxygen saturation was 86% on room air, but she is improving with nasal cannula oxygen. She is awaiting X-rays. 0410: Upon reevaluation, the patient is stable. I discussed the findings and the treatment plan with the patient. She expresses agreement and understanding. I spoke with Dr. Moncada of the [facility] Hospitalist Service. The patient will be evaluated for further management. Vital Signs: reviewed and remarkable for Tachy, hypoxia Labs: Reviewed and remarkable for wnl Interventions: saline lock, fentanyl 50mcg IV x 2 Imaging: CHEST X-RAY: X ray results are stated below per my interpretation: Chest: 1 view: No infiltrate, no effusion, normal cardiac border. FEMUR X-RAY: 3 view femoral neck fracture PELVIS X-RAY: left fem neck fracture TIBIA/FIBULA X-RAY LEFT: 2 view no fracture no dislocation EKG: Per My Interpretation: Indication Tachycardia: Aflutter 135 bpm, qtc 519. This may be SVT. Compared to EKG 08/08/19 rate has increased and p waves have disappeared. Cardiac Monitoring: An Order was placed for continuous cardiac monitoring. Ther monitor shows a rate of 135 with a regular rhythm. Consults: 0410: I reviewed the patient's case with Dr. Moncada - Hospitalist, [facility]. She will evaluate the patient for further management. Blood pressure: Elevated - - Union to be Situation. Disposition: Hospitalization Differential diagnosis: Etiologies such as fracture, dislocation, neurovascular compromise, compartment syndrome, soft tissue injury, as well as others were entertained. Medical Decision Makin yr old blind unhealthy female who does not care well for herself with frequent admissions for leg cellulitis and known medical non-compliance arrives after tripping over oven door she was using to heat the house. She has left hip pain and exam/imaging consistent with left hip fracture. She furthermore is tachy which is compatible with known previous tachycardia/afib. Ordered Lopressor but patient refused it. Was willing to take pain meds for left hip fracture. She is hypoxia which review appears to be baseline for her and she has no respiratory complaints. She furthermore was found to have bug infestation. Hospitalist in to evaluate further. Impression: Left hip fracture Tachyarrhythmia Infestation by bed bug Jim Davis MD The scribe's documentation has been prepared under my direction and personally reviewed by me in its entirety. I confirm that the note above accurately reflects all work, treatment, procedures, and medical decision making performed by me. Impression & Plan Closed fracture of left hip, Tachyarrhythmia, Infestation by bed bug Past Med/Surg History Social History Preferred Language: Hungarian Communication Ability: Effective Beliefs That Will Affect Care: Hinduism (Jainism) Current Living Situation: Family Feels Safe at Home: Declines to Answer Smoking Status: Current every day smoker Tobacco Type: cigarettes ; Cigarettes Per Day: 10 ; Hx Alcohol Use: No Hx Substance Use: No Results & Data Vital Signs Vital Signs - 24 hr 11/07/19 02:43 11/07/19 04:14 11/07/19 04:34 Temperature 36.5 C Temperature Source Oral Pulse Rate 118 H 135 H Pulse Rate [Finger] 139 H Pulse Rate from SpO2 Sensor 135 H Respiratory Rate 22 22 20 Respiratory Depth Normal Blood Pressure 129/92 107/73 Blood Pressure [Right Arm] 108/71 Blood Pressure Mean 104 79 Blood Pressure Mean [Right Arm] 83 Pulse Oximetry 86 L 97 94 Oxygen Delivery Method Nasal Cannula Room Air Nasal Cannula Oxygen Flow Rate 0 2 Sepsis Recent Fever Within 48 Hours No Sepsis New/Unexplained Change in Mental Status No Sepsis Action Taken by Nursing No Action Required Oxygen Flow Rate - Titration 4 Pulse Oximetry Post Tiitration 94 11/07/19 04:37 11/07/19 05:16 Temperature Temperature Source Pulse Rate 137 H 139 H Pulse Rate [Finger] Pulse Rate from SpO2 Sensor 138 H Respiratory Rate 25 H 18 Respiratory Depth Blood Pressure 110/77 Blood Pressure [Right Arm] Blood Pressure Mean Blood Pressure Mean [Right Arm] Pulse Oximetry 95 94 Oxygen Delivery Method Nasal Cannula Oxygen Flow Rate 2 Sepsis Recent Fever Within 48 Hours Sepsis New/Unexplained Change in Mental Status Sepsis Action Taken by Nursing Oxygen Flow Rate - Titration Pulse Oximetry Post Tiitration Home Medications Current Medication List: was personally reviewed by me Laboratory Data Attestation: I reviewed the patient's lab results. Result diagrams: 11/07/19 02:56 11/07/19 02:56 Lab Results 11/07/19 11/07/19 11/07/19 Range/Units 02:56 02:56 02:56 WBC 8.45 (4.8-10.8) K/uL RBC 4.87 (4.2-5.4) M/uL Hgb 14.3 (12.0-16.0) g/dL Hct 45.4 (37-47) % MCV 93.2 (80-100) fL MCH 29.4 (25-34) pg MCHC 31.5 L (32-36) g/dL RDW Std Deviation 51.9 H (36.4-46.3) fL RDW Coeff of Malia 15.2 H (11.5-14.5) % Plt Count 260 (130-400) K/uL MPV 8.4 (7.4-10.4) fL Immature Gran % (Auto) 0.1 % Neut % (Auto) 79.7 % Lymph % (Auto) 9.5 % [place] % (Auto) 9.9 % Eos % (Auto) 0.6 % Baso % (Auto) 0.2 % Immature Gran # (Auto) 0.01 (0.00-0.02) K/uL Neut # (Auto) 6.73 H (1.4-6.5) K/uL Lymph # (Auto) 0.80 L (1.2-3.4) K/uL [place] # (Auto) 0.84 H (0.11-0.59) K/uL Eos # (Auto) 0.05 (0-0.5) K/uL Baso # (Auto) 0.02 (0-0.2) K/uL PT 10.9 (9.0-12.0) Seconds INR 1.1 (0.9-1.1) Sodium 137 (136-145) mmol/L Potassium 4.6 (3.5-5.1) mmol/L Chloride 107 (98-107) mmol/L Carbon Dioxide 27 (21-32) mmol/L Anion Gap 3.0 (3-11) BUN 16 (7-18) mg/dl Creatinine 1.03 (0.6-1.2) mg/dl Est Cr Clr Drug Dosing 57.8 ml/min Est GFR ( Amer) 63.3 Est GFR (Non-Af Amer) 54.6 BUN/Creatinine Ratio 15.1 (10-20) Glucose 109 H (70-99) mg/dl Calcium 8.8 (8.5-10.1) mg/dl Administered Medications Discontinued Medications Fentanyl Citrate (Fentanyl Citrate) 50 mcg IV NOW STA Stop: 11/07/19 02:40 Last Admin: 11/07/19 02:54 Dose: 50 mcg Documented by: [id number] Fentanyl Citrate (Fentanyl Citrate) 25 mcg IV NOW STA Stop: 11/07/19 04:12 Last Admin: 11/07/19 04:24 Dose: 25 mcg Documented by: [id number] Metoprolol Tartrate (Lopressor) 5 mg IV NOW STA Stop: 11/07/19 04:22 Last Admin: 11/07/19 04:47 Dose: Not Given Documented by: [id number] Discharge Plan Visit Data Chief Complaint: Fall Stated Complaint: Hip Pain ED Provider: Jim Davis Discharge Problem: Closed fracture of left hip, Tachyarrhythmia, Infestation by bed bug Patient Disposition: Being Evaluated by Hospitalist Discharge Instructions Interventions: ED Discharge Assessment Last Done: 11/07/19 05:16 Forms Stand Alone Forms: My [facility] [email or web address] Prescriptions Prescriptions: No Action acetaminophen 500 mg Tablet 1,000 mg PO Q6H PRN (Reason: Pain or fever) RF: 0 aspirin 81 mg Tablet,Delayed Release (Dr/Ec) 81 mg PO DAILY Qty: 30 RF: 3 furosemide [Lasix] 40 mg Tablet 40 mg PO DIRECTED RF: 0 lisinopril 5 mg Tablet 5 mg PO DIRECTED RF: 0 Referrals Referrals: Nathan Briceno DO [Primary Care Provider] - Discharge Problem: Closed fracture of left hip Qualifiers: Encounter type: initial encounter Qualified Code(s): S72.002A - Fracture of unspecified part of neck of left femur, initial encounter for closed fracture The scribe's documentation has been prepared under my direction and personally reviewed by me in its entirety. I confirm that the note above accurately reflects all work, treatment, procedures, and medical decision making performed by me.
--- NOTE | 2019-11-07 06:44 | XRay Report ---
XR chest 1V portable CLINICAL HISTORY: 69 years-old Female presenting with Fall, trauma. TECHNIQUE: Portable upright AP view of the chest was obtained. COMPARISON: 03/03/2019. FINDINGS: Atherosclerosis of the aortic arch. Cardiac silhouette enlarged. Pulmonary vascular prominence. Mild interstitial prominence. Lungs are hyperinflated. No focal opacity. No pleural effusion or pneumothor ax. Osteopenia. Upper abdomen normal. IMPRESSION: 1. Findings suggest emphysema. No focal infiltrate to suggest pneumonia. 2. Cardiomegaly with volume overload and mild congestive change. No david pulmonary edema. ACT 112: Negative or not required by law. Electronically signed by: Glen Joy M.D. 11/07/2019 6:43 AM
--- NOTE | 2019-11-07 06:46 | XRay Report ---
XR pelvis 1-2V routine CLINICAL HISTORY: 69 years-old Female presenting with left hip injury s/p fall. TECHNIQUE: Single frontal view of the pelvis was obtained. COMPARISON: Correlation made to CT of the abdomen and pelvis from 12/15/2017. FINDINGS: Transcervical fracture of the left femoral neck with moderate proximal and lateral displacement relat johnny to the femoral neck. The femoral neck remains congruent in the acetabulum. No significant angulat ion. Right femoral neck intact. Bony pelvis intact. Osteopenia is suspected. IMPRESSION: Moderately displaced transcervical left femoral neck fracture. ACT 112: Negative or not required by law. Electronically signed by: Glen Joy M.D. 11/07/2019 6:45 AM
--- NOTE | 2019-11-07 06:48 | XRay Report ---
XR femur LT 2V routine CLINICAL HISTORY: 69 years-old Female presenting with fall, left hip injury. TECHNIQUE: Frontal and lateral views of the left femur were obtained. COMPARISON: None. FINDINGS: Transcervical fracture of the left femoral neck. The femoral neck and metadiaphysis are displaced lat erally approximately one half to one full shaft width. There is also proximal displacement of a simil ar degree. The femoral head remains congruent in the acetabulum. No significant angulation is apparen t. No additional femur fracture is evident. Osteopenia noted. Knee joint grossly congruent. IMPRESSION: Moderately displaced transcervical left femoral neck fracture. ACT 112: Negative or not required by law. Electronically signed by: Glen Joy M.D. 11/07/2019 6:47 AM
--- NOTE | 2019-11-07 06:50 | XRay Report ---
XR tibia fibula LT 2V CLINICAL HISTORY: 69 years-old Female presenting with fall, left thornton. TECHNIQUE: Frontal and lateral views of the left lower leg were obtained. COMPARISON: 03/03/2019. FINDINGS: Osteopenia. Knee joint and ankle joint congruent. No acute fracture or malalignment. Moderate degener ative changes at the knee joint. Diffuse subcutaneous edema in skin thickening. IMPRESSION: 1. Allowing for osteopenia, no acute osseous injury. 2. Degenerative changes at the left knee joint. 3. Nonspecific diffuse subcutaneous edema and skin thickening, possibly venous stasis. ACT 112: Negative or not required by law. Electronically signed by: Glen Joy M.D. 11/07/2019 6:49 AM
[2019-11-07] MEDS ORDERED: MAGNESIUM HYDROXIDE SUSP 30 ML UDC PO PRN (07:53)
[2019-11-07] MEDS ORDERED: OXYCODONE HCL IR 5 MG TAB (IMMEDIATE RELEASE) PO PRN (07:53)
[2019-11-07] MEDS ORDERED: LACTATED RINGER'S 1,000 ML IV SCH (07:53)
[2019-11-07] MEDS ORDERED: MoRPHine SULFATE 2 MG/ML CARP IV PRN ×2 (07:53→10:11)
[2019-11-07] MEDS ORDERED: bisacodyL 10 MG SUPP PR PRN (07:53)
[2019-11-07] MEDS ORDERED: NALOXONE HCL 0.4 MG/1 ML VIAL/CARP IV PRN (07:53)
[2019-11-07] MEDS: ACETAMINOPHEN 500 MG TAB PO PRN ×2 (08:45→21:41)
[2019-11-07 09:00] LABS: Magnesium 1.8 mg/dl (1.8-2.4); Phosphorus 3.8 mg/dl (2.5-4.9)
[2019-11-07] MEDS ORDERED: KETOROLAC TROMETHAMINE 15 MG/ML VIAL IV ONE ×2 (09:00→23:41)
[2019-11-07] MEDS ORDERED: KETOROLAC 30 MG/ML VIAL IV ONE (09:30)
[2019-11-07] MEDS ORDERED: TRAMADOL HCL 50 MG TABLET PO PRN (10:08)
--- NOTE | 2019-11-07 11:48 | Orthopedic Consultation ---
Date of Consultation November 07, 2019 Assessment & Plan (1) Closed fracture of left hip: The patient will require left hip hemiarthroplasty when medically stable. Discussed the patient's case with the medical team, she is high risk and cardiology was consulted for further evaluation treatment/ medical optimization. Agree with wound care consultation for lower extremity venous stasis wounds. Thank you for the consultation. History of Present Illness Reason for Consultation: Left femoral neck hip fracture Attending Physician: Pili Seay MD History of Present Illness The patient is a 69-year-old visually impaired female who presented to [facility] emergency department secondary to a mechanical fall from standing height while ambulating in her kitchen. X-rays demonstrated left displaced femoral neck fracture. She was admitted for further inpatient observation and treatment. Patient denies hitting her head or loss of consciousness. Denies any associated injuries. Denies any numbness or tingling to left lower extremity. Allergies Allergy/AdvReac Type Severity Reaction Status Date / Time Penicillins Allergy Unknown PT STATES Verified 03/03/19 05:00 "THINK THE DOSE WAS TO HIGH"-CAN'T REMEMBER REACT Home Medications Home Medications Medication Instructions Recorded Confirmed Type acetaminophen 1,000 mg PO Q6H PRN 06/21/18 11/07/19 History aspirin 81 mg PO DAILY #30 tab 06/26/18 11/07/19 Rx furosemide [Lasix] 40 mg PO DIRECTED 11/07/19 11/07/19 History lisinopril 5 mg PO DIRECTED 11/07/19 11/07/19 History Patient History Medical History Acute combined systolic and diastolic congestive heart failure (Acute) Atrial ectopy (Chronic) HTN (hypertension) (Chronic) Hyperlipemia (Chronic) Visual impairment (Chronic) Surgical History No pertinent past surgical history Family History Other No pertinent family history Social History Preferred Language: Cymraes Communication Ability: Effective Bleacher Lard Required: No Beliefs That Will Affect Care: Gnosticism Current Living Situation: Alone Feels Safe at Home: Yes Smoking Status: Current every day smoker Tobacco Type: cigarettes ; Cigarettes Per Day: 10 ; Hx Alcohol Use: No Hx Substance Use: No Review of Systems Review of Systems: All systems reviewed & are unremarkable except as noted in HPI & below Constitutional: as per Subjective / HPI Physical Exam Physical Exam: LLE NVSI +EHL/FHL/TA/GS SILT grossly, +2 DP pulse, skin overlying left hip is clean dry and intact. Left lower extremity shortened externally rotated. Chronic venous stasis bilateral lower extremities with bleeding wounds. Foul-smelling. Constitutional: WD/WN, vitals as above Results & Data Vital Signs (Past 12 Hours) Vital Signs Temp Pulse Pulse Resp BP BP BP 11/07/19 10:42 132 H 92/62 L 11/07/19 09:39 92/62 L 11/07/19 09:28 85/53 L 85/51 L 11/07/19 08:48 88/60 L 11/07/19 08:27 132 H 86/54 L 11/07/19 08:00 133 H 11/07/19 07:15 36.6 C 145 H 20 132/67 11/07/19 05:16 139 H 18 110/77 11/07/19 04:37 137 H 25 H 11/07/19 04:34 135 H 20 107/73 11/07/19 04:14 139 H 22 108/71 11/07/19 02:43 36.5 C 118 H 22 129/92 Pulse Ox 11/07/19 10:42 11/07/19 09:39 11/07/19 09:28 11/07/19 08:48 11/07/19 08:27 100 11/07/19 08:00 11/07/19 07:15 100 11/07/19 05:16 94 11/07/19 04:37 95 11/07/19 04:34 94 11/07/19 04:14 97 11/07/19 02:43 86 L Diagnostic Findings XR femur LT 2V routine CLINICAL HISTORY: 69 years-old Female presenting with fall, left hip injury. TECHNIQUE: Frontal and lateral views of the left femur were obtained. COMPARISON: None. FINDINGS: Transcervical fracture of the left femoral neck. The femoral neck and metadiaphysis are displaced laterally approximately one half to one full shaft width. There is also proximal displacement of a similar degree. The femoral head remains congruent in the acetabulum. No significant angulation is apparent. No additional femur fracture is evident. Osteopenia noted. Knee joint grossly congruent. IMPRESSION: Moderately displaced transcervical left femoral neck fracture. XR pelvis 1-2V routine CLINICAL HISTORY: 69 years-old Female presenting with left hip injury s/p fall. TECHNIQUE: Single frontal view of the pelvis was obtained. COMPARISON: Correlation made to CT of the abdomen and pelvis from 12/15/2017. FINDINGS: Transcervical fracture of the left femoral neck with moderate proximal and lateral displacement relative to the femoral neck. The femoral neck remains congruent in the acetabulum. No significant angulation. Right femoral neck intact. Bony pelvis intact. Osteopenia is suspected. IMPRESSION: Moderately displaced transcervical left femoral neck fracture. XR tibia fibula LT 2V CLINICAL HISTORY: 69 years-old Female presenting with fall, left thornton. TECHNIQUE: Frontal and lateral views of the left lower leg were obtained. COMPARISON: 03/03/2019. FINDINGS: Osteopenia. Knee joint and ankle joint congruent. No acute fracture or malalignment. Moderate degenerative changes at the knee joint. Diffuse subcutaneous edema in skin thickening. IMPRESSION: 1. Allowing for osteopenia, no acute osseous injury. 2. Degenerative changes at the left knee joint. (1) Closed fracture of left hip Encounter type: initial encounter Qualified Code(s): S72.002A - Fracture of unspecified part of neck of left femur, initial encounter for closed fracture
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
--- NOTE | 2019-11-07 14:00 | Cardiology Consultation ---
Date of Consultation Patient was brought to the hospital after mechanical fall for which she broke her hip. She denies any chest pain or chest pressure currently. She notes at home she walks just from her bedroom to the living room or the living room to the kitchen. She does not leave the house she is helped by her children. She has significant lower extremity edema to her knees bilaterally with weeping of her legs and a foul-smelling discharge from her lower extremities. She notes this is her baseline but at times she does have swelling into her thighs. She sleeps in a chair. She is unaware of any palpitations. She denies any lightheadedness or dizziness even with a systolic blood pressure in the mid 80s. She denies any syncope with this episode. She is tearful and depressed. She notes that she misses her and her mother and their support. She has a significant amount of hip discomfort. She denies a productive cough. She notes that she is short of breath though she tries to lay flat the rest of a complete review of systems is negative November 07, 2019 Assessment & Plan (1) Closed fracture of left hip: As was discussed with the hospitalist service, I think she is at very high risk for cardiac complications associated with surgical repair of her hip. She has severe LV dysfunction along with RV dysfunction. She is already hypotensive just with a small amount of narcotics for pain control. In addition her pulmonary artery pressures are elevated in the face of RV dysfunction which suggests she probably has more elevated pulmonary artery pressures than just 40 mmHg. She is tachycardic in order to try to maintain her cardiac output as well as secondary to pain. She will have a little reserve in the operating room. She is already hypotensive. I believe her risk of cardiac complications is at least 20%. This includes heart attack, dying from cardiac causes, heart failure and arrhythmias. With a drop in her preload associated with anesthesia she will underfill her poorly functioning right ventricle and underfill her left ventricle which will only lead to progressive hypotension. If one is going to operate on her she will need to go to the ICU postoperatively and likely will need pressors to support her blood pressure throughout the perioperative period. Given we know that the mortality associated with a hip fracture is 50% in the next 6 to 12 months and the fact that she has chronic lower extremity edema with a foul-smelling discharge from her lower extremities in all likelihood her hip fracture repair will get infected in the long-term anyway. The best option may be transferring her to [facility] with pain management and a palliative care/hospice evaluation [facility] will return tomorrow (2) Cardiomyopathy: Patient has known cardiomyopathy, last echo in February 2019 shows EF 25 to 30%, global hypokinesis, mild LVH, severely dilated right ventricle with reduced systolic function, severe biatrial dilation, moderate aortic valve sclerosis and mild pulmonary hypertension. (3) Tachyarrhythmia: Appears to be sinus tachycardia when slowed down to 110. She has a history of this. (4) Acute combined systolic and diastolic congestive heart failure: (5) Venous stasis dermatitis of both lower extremities: Appears to have longstanding venous stasis dermatitis of both lower extremities with history of cellulitis and sepsis from these as recently as February 2019. History of Present Illness Attending Physician: Pili Seay MD Allergies Allergy/AdvReac Type Severity Reaction Status Date / Time Penicillins Allergy Unknown PT STATES Verified 03/03/19 05:00 "THINK THE DOSE WAS TO HIGH"-CAN'T REMEMBER REACT Home Medications Home Medications Medication Instructions Recorded Confirmed Type acetaminophen 1,000 mg PO Q6H PRN 06/21/18 11/07/19 History aspirin 81 mg PO DAILY #30 tab 06/26/18 11/07/19 Rx furosemide [Lasix] 40 mg PO DIRECTED 11/07/19 11/07/19 History lisinopril 5 mg PO DIRECTED 11/07/19 11/07/19 History Patient History Medical History Acute combined systolic and diastolic congestive heart failure (Acute) Atrial ectopy (Chronic) HTN (hypertension) (Chronic) Hyperlipemia (Chronic) Visual impairment (Chronic) Surgical History No pertinent past surgical history Family History Other No pertinent family history Social History Preferred Language: Turkish Communication Ability: Effective Colorer Required: No Beliefs That Will Affect Care: Judaism Current Living Situation: Alone Feels Safe at Home: Yes Smoking Status: Current every day smoker Tobacco Type: cigarettes ; Cigarettes Per Day: 10 ; Hx Alcohol Use: No Hx Substance Use: No Results & Data Vital Signs (Past 12 Hours) Vital Signs Temp Pulse Pulse Resp BP BP BP 11/07/19 13:10 84/52 L 11/07/19 11:49 82/50 L 83/50 L 11/07/19 11:43 36.8 C 110 H 18 11/07/19 10:42 132 H 92/62 L 11/07/19 09:39 92/62 L 11/07/19 09:28 85/53 L 85/51 L 11/07/19 08:48 88/60 L 11/07/19 08:27 132 H 86/54 L 11/07/19 08:00 133 H 11/07/19 07:15 36.6 C 145 H 20 132/67 11/07/19 05:16 139 H 18 110/77 11/07/19 04:37 137 H 25 H 11/07/19 04:34 135 H 20 107/73 11/07/19 04:14 139 H 22 108/71 11/07/19 02:43 36.5 C 118 H 22 129/92 Pulse Ox 11/07/19 13:10 11/07/19 11:49 11/07/19 11:43 99 11/07/19 10:42 11/07/19 09:39 11/07/19 09:28 11/07/19 08:48 11/07/19 08:27 100 11/07/19 08:00 11/07/19 07:15 100 11/07/19 05:16 94 11/07/19 04:37 95 11/07/19 04:34 94 11/07/19 04:14 97 11/07/19 02:43 86 L She is awake alert oriented x3 she is tearful. HEENT: Severely reduced carotid upstrokes no carotid bruits Lungs: Clear to auscultation bilaterally decreased breath sounds in the bases Heart tachycardic no appreciable murmurs Abdomen soft nontender distended positive bowel sounds Extremities chronic venous stasis changes with swelling to her knees bilaterally chronic skin thickening with brown foul-smelling discharge from her lower extremities Psychiatric: She is tearful (1) Closed fracture of left hip Encounter type: initial encounter Qualified Code(s): S72.002A - Fracture of unspecified part of neck of left femur, initial encounter for closed fracture
--- NOTE | 2019-11-07 14:25 | Electrocardiogram Report ---
Test Reason : Blood Pressure : / mmHG Vent. Rate : 135 BPM Atrial Rate : 100 BPM P-R Int : 000 ms QRS Dur : 088 ms QT Int : 346 ms P-R-T Axes : 000 -28 083 degrees QTc Int : 519 ms Sinus tachycardia Voltage criteria for left ventricular hypertrophy with secondary ST/T chages Abnormal ECG When compared with ECG of 08-AUG-2019 12:42, Premature ventricular complexes are no longer Present Confirmed by Kurtis Anderson ([id number]) on 11/07/2019 2:25:12 PM Referred By: REFERRED SELF Confirmed By:Kurtis Anderson
[2019-11-07] MEDS ORDERED: LACTATED RINGER'S 500 ML IV ONE (15:12)
[2019-11-07 16:08] LABS: Appearance Urine Cloudy (Clear); Bacteria Urine Automated Negative (Negative); Blood Urine Negative (Negative); Epithelial Cell Urine Auto >30 /lpf (0-5); Glucose Urine UA Negative (Negative); Ketones Urine Negative (Negative); Leukocyte Esterase Urine 1+ (Negative); Nitrite Urine Positive (Negative); Protein Urine 1+ (Negative); Specific Gravity Urine 1.033 (1.000-1.030); Urobilinogen Urine Negative (Negative)
[2019-11-07 16:16] LABS: Bilirubin Urine 2+ (Negative); Color Urine Dark Yellow
[2019-11-07 16:17] LABS: Ictotest Urine Positive (Negative)
[2019-11-07] MEDS: KETOROLAC TROMETHAMINE 15 MG/ML VIAL IV SCH (17:33)
[2019-11-07] MEDS: DOCUSATE SODIUM/SENNA 50/8.6MG TAB PO SCH (21:16)
[2019-11-07] MEDS: HEPARIN SOD 5,000 UNIT/0.5 ML VIAL SQ SCH (21:16)
[2019-11-08] MEDS: KETOROLAC TROMETHAMINE 15 MG/ML VIAL IV SCH ×2 (05:10→16:14)
[2019-11-08 07:15] LABS: Basophils # (auto) 0.03 K/uL (0-0.2); Basophils % (auto) 0.4 %; Eosinophils # (auto) 0.16 K/uL (0-0.5); Eosinophils % (auto) 2.3 %; Hematocrit (blood only) 41.7 % (37-47); Hemoglobin 13.3 g/dL (12.0-16.0); Immature Granulocytes # (auto) 0.02 K/uL (0.00-0.02); Immature Granulocytes % (auto) 0.3 %; Lymphocytes # (auto) 1.51 K/uL (1.2-3.4); Lymphocytes % (auto) 21.3 %; Mean Corpuscular Hemoglobin 29.6 pg (25-34); Mean Corpuscular Hgb Conc 31.9 g/dL (32-36); Mean Corpuscular Volume 92.7 fL (80-100); Mean Platelet Volume 8.4 fL (7.4-10.4); Monocytes # (auto) 1.05 K/uL (0.11-0.59); Monocytes % (auto) 14.8 %; Neutrophils # (auto) 4.33 K/uL (1.4-6.5); Neutrophils % (auto) 60.9 %; Platelet Count 270 K/uL (130-400); RDW Coefficient of Variation 15.4 % (11.5-14.5); RDW Standard Deviation 52.2 fL (36.4-46.3)
[2019-11-08 07:43] LABS: BUN Creatinine Ratio 16.7 (10-20); Calcium 8.9 mg/dl (8.5-10.1); Creatinine Clr Calc Pharmacy 32.9 ml/min; Est GFR (Non-African American) 27.6; Potassium 4.7 mmol/L (3.5-5.1)
[2019-11-08] MEDS: HEPARIN SOD 5,000 UNIT/0.5 ML VIAL SQ SCH ×2 (08:09→21:29)
[2019-11-08] MEDS: ACETAMINOPHEN 500 MG TAB PO PRN ×2 (09:48→16:14)
--- NOTE | 2019-11-08 11:22 | Cardiology Progress Note ---
Date of Service November 08, 2019 Assessment & Plan (1) Tachycardia: This appears to be sinus tachycardia. In the past she has had both ventricular and atrial arrhythmias. Why she has a persistent sinus tachycardia is unclear. Maybe related to an element of intravascular depletion in the s etting of significant right heart failure and pulmonary hypertension. Could be related to a catabolic state and poor nutrition overall. When she was last evaluated in our facility her serum albumin was quite low. She appears to have lost weight since that time. She is not appear to be in acute pain. Her tachycardia did appear to worsen when she was talking about her concerns regarding the procedure. I do not think there is an indication for medical therapy in this regard. Seeking an underlying cause would be the primary treatment. I think maintaining good hydration, good oxygenation, avoiding significant anemia and adequate analgesia would be paramount. (2) Cardiomyopathy: She is noted to have an element of biventricular heart failure. I do not believe she is on any medical therapy as her compliance is highly suspect. She does have some visual impairment and I think she has some difficulty managing her medications at home. However, she does not appear to have severe pulmonary edema at this point. I think the primary concern would be significant right- sided failure. It is difficult to treat biventricular failure and as there is a temptation for both diuresis and volume support at times. She certainly has an increased operative risk given her underlying comorbidity. Poor nutrition, active infection and underlying cardiomyopathy with associated hemodynamic instability would make her likely to experience some complication in the perioperative period. However, if there is 0 non operative options, her mortality would be high without operative intervention. At this point the only intervention involves hemodynamic support. She has an element of hypotension currently. Possible that this will worsen with a general or even regional anesthetic. She will require volume and possibly pressor support. In the postoperative period pulmonary artery catheter may be of value in order to guide continued therapy. I will defer any long-term recommendations until her fractures addressed either operatively or non operatively. I Can follow her in the postoperative period make recommendations regarding her hemodynamics. Subjective This morning the patient did not report any pain even at her fracture site. She is primarily anxious regarding the surgery and her operative risk. She denies any breathing difficulty. She has not been aware of any palpitations. She reports being ambulatory at home around her residence. She will occasionally use of assistive devices. She remembers falling and this appears to have been a mechanical episode. She did not endorse symptoms of orthopnea or paroxysmal nocturnal dyspnea although she has been sleeping in a chair. It seems she either has a poor appetite or poor eating habits. This may be related to some food in security. It is unclear whether she has been compliant with her medical therapy. Review of Systems Review of Systems: Per HPI Physical Exam Physical Exam: She is alert and oriented x3. Mood affect appear normal. She answered all questions appropriately. HEENT: Sclerae are anicteric. Extraocular movements were intact. Neuro: Cranial nerves intact Neck: Examination of the submandibular region did not reveal any significant lymphadenopathy. Carotids are palpable bilaterally and free of bruits on auscultation. There was no evidence of jugular venous distention. The thyroid was not enlarged. Lungs: Lungs are clear to auscultation bilaterally. There are no rales wheezes or rhonchi. She has normal respiratory effort without use of accessory muscles. There is normal pulmonary excursion. Cardiac: The rhythm was regular. S1 and S2 were normal. There are no murmurs on examination. The PMI was not markedly displaced on palpation. Abdomen: The abdomen was soft and nontender. Extremities: Patient has bilateral radial pulses that are equal in intensity. There is no evidence cyanosis or clubbing. There was no evidence of significant peripheral edema bilaterally. Skin: There are no rashes noted on examination today. Results & Data Vital Signs (Past 12 Hours) Vital Signs Temp Pulse Pulse Resp BP BP Pulse Ox 11/08/19 09:58 122 H 11/08/19 07:07 36.9 C 123 H 20 89/58 L 80/51 L 100 11/08/19 03:37 36.9 C 124 H 20 93/62 L 100 11/08/19 00:25 123 H 11/07/19 23:21 36.6 C 123 H 20 85/64 L 99 Laboratory Results Abnormal Lab Results 11/07/19 11/07/19 11/08/19 08:19 16:00 06:43 WBC 7.10 RBC 4.50 Hgb 13.3 Hct 41.7 MCV 92.7 MCH 29.6 MCHC 31.9 L RDW Std Deviation 52.2 H RDW Coeff of Malia 15.4 H Plt Count 270 MPV 8.4 Immature Gran % (Auto) 0.3 Neut % (Auto) 60.9 Lymph % (Auto) 21.3 [place] % (Auto) 14.8 Eos % (Auto) 2.3 Baso % (Auto) 0.4 Immature Gran # (Auto) 0.02 Neut # (Auto) 4.33 Lymph # (Auto) 1.51 [place] # (Auto) 1.05 H Eos # (Auto) 0.16 Baso # (Auto) 0.03 Sodium Potassium Chloride Carbon Dioxide Anion Gap BUN Creatinine Est Cr Clr Drug Dosing Est GFR ( Amer) Est GFR (Non-Af Amer) BUN/Creatinine Ratio Glucose Calcium Urine Color Dark Yellow Urine Appearance Cloudy A Urine pH 5.0 Ur Specific [place] 1.033 H Urine Protein 1+ H Urine Glucose (UA) Negative Urine Ketones Negative Urine Blood Negative Urine Nitrite Positive A Urine Bilirubin 2+ H Urine Urobilinogen Negative Ur Leukocyte Esterase 1+ H Urine WBC (Auto) 1-5 Urine RBC (Auto) 5-10 H U Hyaline Cast (Auto) 5-10 H U Epithel Cells (Auto) >30 H Urine Bacteria (Auto) Negative Ur Renal Epithelial Cell Not Reportable Urine Yeast Not Reportable Blood Type A Positive Antibody Screen POSITIVE A Antibody Identification Anti-I Antibody ID Comment 11/08/19 06:43 WBC RBC Hgb Hct MCV MCH MCHC RDW Std Deviation RDW Coeff of Malia Plt Count MPV Immature Gran % (Auto) Neut % (Auto) Lymph % (Auto) [place] % (Auto) Eos % (Auto) Baso % (Auto) Immature Gran # (Auto) Neut # (Auto) Lymph # (Auto) [place] # (Auto) Eos # (Auto) Baso # (Auto) Sodium 135 L Potassium 4.7 Chloride 104 Carbon Dioxide 25 Anion Gap 6.0 BUN 30 H D Creatinine 1.81 H D Est Cr Clr Drug Dosing 32.9 Est GFR ( Amer) 32.0 Est GFR (Non-Af Amer) 27.6 BUN/Creatinine Ratio 16.7 Glucose 80 Calcium 8.9 Urine Color Urine Appearance Urine pH Ur Specific [place] Urine Protein Urine Glucose (UA) Urine Ketones Urine Blood Urine Nitrite Urine Bilirubin Urine Urobilinogen Ur Leukocyte Esterase Urine WBC (Auto) Urine RBC (Auto) U Hyaline Cast (Auto) U Epithel Cells (Auto) Urine Bacteria (Auto) Ur Renal Epithelial Cell Urine Yeast Blood Type Antibody Screen Antibody Identification Antibody ID Comment PG Care Time/CCT Total # of Minutes Spent Total Time Spent with Patient: Total time spent is greater than 50% in coordination of care (as documented) at patient's floor/unit and/or counseling patient:
--- NOTE | 2019-11-08 12:52 | Anesthesiology Consultation ---
Date of Service November 08, 2019 Assessment & Plan (1) Hypotension: (2) Atrial tachycardia: Chart Review Chart Review: Pending: Refer to Additional Notes / Consult section (will speak with call doc re: very high risk surgery) History Height/Weight Height: 6 ft Weight: 75.4 kg Allergies Allergy/AdvReac Type Severity Reaction Status Date / Time Penicillins Allergy Unknown PT STATES Verified 03/03/19 05:00 "THINK THE DOSE WAS TO HIGH"-CAN'T REMEMBER REACT Medications Home Medications Medication Instructions Recorded Confirmed Last Taken acetaminophen 1,000 mg PO Q6H PRN 06/21/18 11/07/19 Unknown aspirin 81 mg PO DAILY #30 tab 06/26/18 11/07/19 Unknown furosemide [Lasix] 40 mg PO DIRECTED 11/07/19 11/07/19 Unknown lisinopril 5 mg PO DIRECTED 11/07/19 11/07/19 Unknown Active Medications Generic Name Dose Route Start Last Admin Trade Name Freq PRN Reason Stop Dose Admin Acetaminophen 1,000 mg 11/07/19 07:53 11/08/19 09:48 Tylenol PO 12/07/19 07:52 1,000 mg Q6H PRN Administration Pain or fever Heparin Sodium (Porcine) 5,000 units 11/07/19 21:00 11/08/19 08:09 Heparin Sodium (Porcine) SQ 12/07/19 20:59 5,000 units Q12 ANTOLIN Administration Ketorolac Tromethamine 15 mg 11/07/19 17:00 11/08/19 05:10 Toradol IV 11/12/19 16:59 15 mg Q12H ANTOLIN Administration Senna/Docusate Sodium 2 tab 11/07/19 21:00 11/07/19 21:16 Senokot S PO 12/07/19 20:59 2 tab HS ANTOLIN Administration Tramadol HCl 50 mg 11/07/19 10:08 11/07/19 13:42 Ultram PO 12/07/19 10:07 50 mg Q4H PRN Administration Pain NPO Date Last Intake of Fluids: 11/07/19 Time Last Intake of Fluids: 23:59 Date Last Intake of Solids: 11/07/19 Time Last Intake of Solids: 18:00 Past Medical History Medical History (Updated 11/08/19 @ 13:03 by John Lema MD) Acute combined systolic and diastolic congestive heart failure (Acute) Acute renal insufficiency 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 HTN (hypertension) (Chronic) Hyperlipemia (Chronic) Hypotension With her hypotension, her Hb is up from prior, and creatinine has bumped significantly in one day so appears to be intravascularly dry - unsure how she will tolerate fluid challenge but may make her tolerate anesthesia better Tachycardia Visual impairment (Chronic) Past Family History Family History Other No pertinent family history Past Surgical History Surgical History No pertinent past surgical history Social History Smoking Status: Current every day smoker tobacco type: cigarettes Smoking cigarettes per day: 10 Hx Alcohol Use: No Hx Substance Use: No Physical Exam Vital Signs Last Vital Signs Temp 36.6 C 11/08/19 12:20 Pulse 127 H 11/08/19 12:20 Resp 16 11/08/19 12:20 BP 92/60 L 11/08/19 12:20 Pulse Ox 100 11/08/19 12:20 Testing Laboratory Results 11/08/19 06:43 11/08/19 06:43 PT 10.9 Seconds (9.0-12.0) 11/07/19 02:56 INR 1.1 (0.9-1.1) 11/07/19 02:56 Urine Color Dark Yellow 11/07/19 16:00 Urine Appearance Cloudy (Clear) A 11/07/19 16:00 Urine pH 5.0 (4.5-7.5) 11/07/19 16:00 Ur Specific [place] 1.033 (1.000-1.030) H 11/07/19 16:00 Urine Protein 1+ (Negative) H 11/07/19 16:00 Urine Glucose (UA) Negative (Negative) 11/07/19 16:00 Urine Ketones Negative (Negative) 11/07/19 16:00 Urine Nitrite Positive (Negative) A 11/07/19 16:00 Ur Leukocyte Esterase 1+ (Negative) H 11/07/19 16:00 Urine WBC (Auto) 1-5 /hpf (0-5) 11/07/19 16:00 Urine RBC (Auto) 5-10 /hpf (0-4) H 11/07/19 16:00 U Hyaline Cast (Auto) 5-10 /lpf (0-5) H 11/07/19 16:00 U Epithel Cells (Auto) >30 /lpf (0-5) H 11/07/19 16:00 Urine Bacteria (Auto) Negative (Negative) 11/07/19 16:00 Blood Type A Positive 11/07/19 08:19 Antibody Screen POSITIVE A 11/07/19 08:19 11/07/19 16:00 Urine Culture - Preliminary Urine,Clean Catch No growth - Less than 1,000 colonies/mL, Final report to follow. Electrocardiogram Date: 11/07/19 Findings: + ST @ (135) Chest X-Ray Date: 11/07/19 Findings: + cardiomegaly and + pulmonary vascular congestion (mild) evidence of COPD Echocardiogram Date: 03/03/19 EF: 25-30% Other Findings: + atrial enlargement RV dilated and reduced function pulmonary hypertension listed as mild from measurement but suspected to be worse
[2019-11-08] MEDS ORDERED: VANCOMYCIN CONSULT ACTIVE PRN ×2 (13:02→13:08)
[2019-11-08] MEDS ORDERED: VANCOMYCIN HCL 1,000 MG in SODIUM CHLORIDE 0.9% 250 ML IV SCH (13:15)
--- NOTE | 2019-11-08 13:27 | Palliative Care Consultation ---
Date of Consultation November 08, 2019 Assessment & Plan (1) Goals of care, counseling/discussion: -69 year old female patient with PMH htn, paroxysmal afib, severe LV dysfunction with EF 25-30%, RV dysfunction, visual impairment, atrial ectopy, hyperlipidemia, and venous stasis ulcers, presented to the hospital after a fall and subsequent closed left hip fracture. Ortho and cardiology are consulted. Per cardiology's note, given patient's severe heart dysfunction, she has a 20% mortality risk with surgery. It is also known that with the hip fracture itself, patient has a 50% mortality risk in the next year. Patient also has foul- smelling, weeping wounds of BL lower extremities. She was found to have bed bug infestation upon admission as well. She lives at home, and her daughter Cathi and Cathi's three children and significant other live with her. Patient has ambulatory dysfunction and is able to ambulate small distances or use a wheelchair. Patient is legally, almost completely, blind. Patient is uncertain if she wants to undergo surgery. Given patient's severe heart disease and other comorbidities, palliative care is consulted to help discuss of care and assist with patient's medical decision making. -Met with patient in room 257. She is AA&O x4. Patient is actually known to me from caring for her a while back. -Patient identifies as a , and her heritage is very important to her. She lives life with a spiritual approach and believes in homeopathic medicine as well as some Western medicine. Patient's decision making ability has been questioned in the past, but she truly is oriented x4 and able to make decisions for herself. Patient has a very tangential thought process and it is difficult for her to make decisions. -We discussed what is going on with patient medically. She stated to me, "All I heart is ." "I have a 20% chance of dying with surgery." Patient is retaining all of the information given to her. When I questioned about what she would like to do: risk surgery to have the chance to possibly walk again vs. forego surgery knowing that she will be bedbound and continue to decline/possibly pass away. To which patient stated, "With , it does matter." Asked her to elaborate, she said "I really don't want to have surgery if I'm dying anyway." -Patient declines for me to call any of her children at this time. Patient has two local daughters, Cathi and Margy, who she states she does not want to be called. She has a strained relationship with both of them, but does not fear for her own safety with them. Patient has two sons, Nahun and Aracelis (uncertain of spelling), who she plans to call this evening to talk to. Patient will consider allowing us to call her son(s) tomorrow depending on her conversation with them today. -when I asked patient what her ultimate goal is, whether it be to return home, be comfortable and allow nature to take its course, etc, she said, "I really don't know what my goal is at this point." -Patient will certainly need SNF after hospitalization-- whether it be for rehab or comfort care. She was not fond of this idea. -Further plan to follow as we see how patient's clinical course unfolds. -PPS 30%. (2) Closed fracture of left hip: Encounter type: initial encounter Qualified Code(s): S72.002A - Fracture of unspecified part of neck of left femur, initial encounter for closed fracture (3) Wounds, multiple open, lower extremity: (4) Acute exacerbation of CHF (congestive heart failure): Heart failure type: unspecified Qualified Code(s): I50.9 - Heart failure, unspecified History of Present Illness Attending Physician: Scott Shin DO History of Present Illness This 69 year old female patient with PMH htn, paroxysmal afib, severe LV dysfunction with EF 25-30%, RV dysfunction, visual impairment, atrial ectopy, hyperlipidemia, and venous stasis ulcers, presented to the hospital after a fall and subsequent closed left hip fracture. Ortho and cardiology are consulted. Per cardiology's note, given patient's severe heart dysfunction, she has a 20% mortality risk with surgery. It is also known that with the hip fracture itself, patient has a 50% mortality risk in the next year. Patient also has foul- smelling, weeping wounds of BL lower extremities. She was found to have bed bug infestation upon admission as well. She lives at home, and her daughter Cathi and Cathi's three children and significant other live with her. Patient has ambulatory dysfunction and is able to ambulate small distances or use a wheelchair. Patient is legally, almost completely, blind. Patient is uncertain if she wants to undergo surgery. Given patient's severe heart disease and other comorbidities, palliative care is consulted to help discuss of care and assist with patient's medical decision making. Thank you kindly for this consult. Palliative care team will follow as needed. Allergies Allergy/AdvReac Type Severity Reaction Status Date / Time Penicillins Allergy Unknown PT STATES Verified 03/03/19 05:00 "THINK THE DOSE WAS TO HIGH"-CAN'T REMEMBER REACT Home Medications Home Medications Medication Instructions Recorded Confirmed Type acetaminophen 1,000 mg PO Q6H PRN 06/21/18 11/07/19 History aspirin 81 mg PO DAILY #30 tab 06/26/18 11/07/19 Rx furosemide [Lasix] 40 mg PO DIRECTED 11/07/19 11/07/19 History lisinopril 5 mg PO DIRECTED 11/07/19 11/07/19 History Patient History Medical History (Updated 11/08/19 @ 13:37 by JONATHON Ruffin) Acute combined systolic and diastolic congestive heart failure (Acute) Acute renal insufficiency 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 Goals of care, counseling/discussion HTN (hypertension) (Chronic) Hyperlipemia (Chronic) Hypotension With her hypotension, her Hb is up from prior, and creatinine has bumped significantly in one day so appears to be intravascularly dry - unsure how she will tolerate fluid challenge but may make her tolerate anesthesia better Tachycardia Visual impairment (Chronic) Surgical History No pertinent past surgical history Family History Other No pertinent family history Social History Preferred Language: Divehi Communication Ability: Effective Planner Scheduler Required: No Beliefs That Will Affect Care: Zoroastrian Current Living Situation: Alone Feels Safe at Home: Yes Smoking Status: Current every day smoker Tobacco Type: cigarettes ; Cigarettes Per Day: 10 ; Hx Alcohol Use: No Hx Substance Use: No Review of Systems Review of Systems: Const: + weakness ENMT: dry mouth Resp: No SOB, no cough Cardio: No chest pain, no edema GI: No abdominal pain, no N/V MS: + left hip pain Neuro: No confusion Psych: No anxiety Physical Exam Constitutional: + ill appearing and + cachectic; no acute distress ENMT: Mouth: + dry oral mucous membranes Respiratory: normal respiratory effort; no labored breathing Cardiovascular: Rate/Rhythm: regular rhythm and + tachycardic Skin: wrinkled skin on BLE, many open wounds to BL lower legs, draining ulcers Neurologic: moves all extremities and awake; not confused Psychiatric: Orientation: alert and oriented x 3 Thought Process: + tangential thought process Insight: good insight Results & Data Vital Signs (Past 12 Hours) Vital Signs Temp Pulse Pulse Resp BP BP Pulse Ox 11/08/19 12:20 36.6 C 127 H 16 92/60 L 100 11/08/19 09:58 122 H 11/08/19 07:07 36.9 C 123 H 20 89/58 L 80/51 L 100 11/08/19 03:37 36.9 C 124 H 20 93/62 L 100 Time Spent Midlevel 70 minutes with >50% of the time spent at bedside with patient and medical team discussing condition and GOC.
--- NOTE | 2019-11-08 13:28 | Orthopedic Progress Note ---
Date of Service November 08, 2019 Assessment & Plan (1) Closed fracture of left hip: The patient will require left hip hemiarthroplasty when/ if medically stable. Discussed the patient's case with the medical team, she is high risk and cardiology was consulted for further evaluation treatment/ medical optimization. Agree with wound care consultation for lower extremity venous stasis wounds. Subjective Patient states left hip is comfortable denies sob, cp, n/v. Physical Exam Physical Exam: Hip ROM deferred, multiple area of venous ulcers/ drainage B/L LE's. Toes mobile. Somewhat confused. Results & Data Vital Signs (Past 12 Hours) Vital Signs Temp Pulse Pulse Resp BP BP Pulse Ox 11/08/19 12:20 36.6 C 127 H 16 92/60 L 100 11/08/19 09:58 122 H 11/08/19 07:07 36.9 C 123 H 20 89/58 L 80/51 L 100 11/08/19 03:37 36.9 C 124 H 20 93/62 L 100 (1) Closed fracture of left hip Encounter type: initial encounter Qualified Code(s): S72.002A - Fracture of unspecified part of neck of left femur, initial encounter for closed fracture
[2019-11-08] MEDS ORDERED: VANCOMYCIN HCL 1,750 MG in SODIUM CHLORIDE 0.9% 500 ML IV ONE (13:30)
[2019-11-08] MEDS ORDERED: DAPTOMYCIN CONSULT ACTIVE PRN (14:26)
--- NOTE | 2019-11-08 15:16 | Hospitalist Progress Note ---
Date of Service November 08, 2019 Assessment & Plan (1) Goals of care, counseling/discussion: Mrs. Liane Arreguin is a wonderful 69yo woman with a history of severe biventricular heart failure, HTN, HLD, venous insufficiency, and chronically infected leg wounds who is here following a fall that led to a left hip fracture Closed displaced fracture of left femoral neck: -Seen by orthopedic surgery, they do not want to operate -Patient very high risk for any sort of procedure due to the tenuous status of her heart -Pressures have been soft and have dropped further with opioid medications, therefore will continue Tylenol, Toradol -Patient's pain has been well controlled while she is at rest, but when her legs are examined it causes her a good deal of pain. -Ongoing bed rest Cardiomyopathy: Patient has known cardiomyopathy, last echo in February 2019 shows EF 25 to 30%, global hypokinesis, mild LVH, severely dilated right ventricle with reduced systolic function, severe biatrial dilation, moderate aortic valve sclerosis and mild pulmonary hypertension. -Unsure if ischemic, no records of cardiac catheterization. -Does appear to be in sinus tachycardia at this time. She has been resistant to Lopressor treatment for this. -Certainly adds to the picture of someone who is very high risk for any major surgeries. Cardiology consulted agree that patient is very high risk but also that there is no great alternative and that if hip not repaired to the point of being ambulatory she would also likely have a very poor outcome. Tachyarrhythmia: Appears to be sinus tachycardia when slowed down to 110. May be secondary to her heart failure, will not treat at this time per cardiology Infestation by bed bug: Contact Precautions. Wounds, multiple open, lower extremity: Wound care consulted Patient with fould smell, purulent discharge Will cover with daptomycin at this point to guarantee MRSA coverage Acute combined systolic and diastolic congestive heart failure: As above. Patient may be intravascularly depleted As no surgery to be done today resumed patient's diet and she immediately started drinking water and juice. Ordered one time 250 ml bolus NSS as well. Lungs clear to aucultation at the moment Visual impairment: No acute issues. Venous stasis dermatitis of both lower extremities: Appears to have longstanding venous stasis dermatitis of both lower extremities with history of cellulitis and sepsis from these as recently as February 2019. consulted wound care provider Started patient on daptomycin She is also completely incontinent of urine which adds to the difficulty. Mental Health: Patient admitted in February 2019 for sepsis likely secondary from chronic lower extremity cellulitis. She was seen by psychiatry at that time and evaluated, they did find her thought process to be circumstantial and at times difficult to redirect, however she denied auditory or visual hallucinations and at that time and there was not sufficient criteria to suggest a formal thought disorder. No clear indication to begin any psychiatric medications. There was also concern for possible neglect given that she is by report taken care of by her daughters and discussion of [facility] becoming involved? there did not appear to be neglect but rather a refusal by patient to participate with going to doctors appointments and wishing to be left alone by her children who she thinks is stealing from her. Case management consulted to aid in these issues as above. Appreciate recommendations. FEN/GI: Heart healthy diet sodium restriction DVT ppx: heparin q12 CODE STATUS: FULL DISPO: Patient will remain inpatient on med/surg floor until decision is made about surgery. (2) Acute renal insufficiency: (3) Chronic wound of extremity: (4) Tachycardia: (5) Hypotension: (6) Discharge planning issues: (7) Venous stasis dermatitis of both lower extremities: (8) Tachyarrhythmia: (9) Infestation by bed bug: (10) Wounds, multiple open, lower extremity: (11) Closed fracture of left hip: (12) Atrial tachycardia: (13) Nonsustained ventricular tachycardia: (14) Cardiomyopathy: Supervising Physician Co-Signing Physician Notes I personally examined the patient and verified all song points of history and exam, discussed case, and agree with decision making with Dr Brandt. No significant hip pain whenever she is laying at rest. Trying to discuss risk/benefit of operative repair versus conservative managementshe seems to express a reasonably good understanding, but is dismayed at the high risk for poor outcome with either operative for conservative management. Leg pain is reasonable. Vitals noted, in general she is awake and alert pleasant no distress. Vision is very poor. HEENT normocephalic atraumatic mucous membranes are moist. Breathing is unlabored no accessory muscle use. Skin shows diffuse fairly severe venous stasis changes and ulcerations. A degree of exudate from some of the ulcers, foul-smelling. Hip fracturegiven the patient's underlying cardiomyopathy she is high risk for surgical repair, but she is also extremely high risk for terrible outcome with conservative care. Explained this to the patient, will definitely need to continue to follow through on helping her through this difficult decision-making process. Venous stasis dermatitis with cellulitic ulcersgiven the purulence, MRSA seems reasonably probable, antibiotic coverage for such. Local wound care Severe combined systolic and diastolic and right-sided CHFvery delicate and difficult fluid management. Balance as best as possible. Subjective Liane Arreguin is resting this morning not endorsing much in the way of pain. She tells me she is able to move her toes and leg a little bit and thinks the h ip fracture may have been a mistake. While she sometimes is tangential in her speech, it is clear that she is aware of her injury and the severity and risk of any procedure. She is also very clear that her wish is to remain alive as long as possible and would want everything done and to be as aggressive as possible in every aspect of her care. Review of Systems Review of Systems: All systems reviewed & are unremarkable except as noted in HPI & below Physical Exam Constitutional: + thin and + cachectic; no altered mental status and no behavioral limitations Eyes: PERRL, conjunctivae normal, anicteric sclerae ENMT: external ear and nose normal, oropharynx normal Respiratory: normal respiratory effort, lungs clear to auscultation Auscultation: no crackles, no rales, no rhonchi and no wheezes Cardiovascular: Rate/Rhythm: regular rate and regular rhythm Heart Sounds: normal S1 and normal S2; no click, no gallop, no murmur and no cardiac rub Bilateral lower limb edema with infected skin and purulent wounds Gastrointestinal (Abdomen): normal bowel sounds, soft, nontender, no hepatosplenomegaly Skin: Foul smelling purulent skin lesions bilateral lower extremities, very edematous very tender. Both legs were adhered to her bedsheets by the pus. Results & Data Vital Signs (Past 12 Hours) Vital Signs Temp Pulse Pulse Resp BP BP Pulse Ox 11/08/19 12:20 36.6 C 127 H 16 92/60 L 100 11/08/19 09:58 122 H 11/08/19 07:07 36.9 C 123 H 20 89/58 L 80/51 L 100 11/08/19 03:37 36.9 C 124 H 20 93/62 L 100 Resident Activity Tracking Resident Involvement: Resident Care Provided Care Provided: Adult Hospital Medicine (1) Closed fracture of left hip Encounter type: initial encounter Qualified Code(s): S72.002A - Fracture of unspecified part of neck of left femur, initial encounter for closed fracture
[2019-11-08] MEDS ORDERED: SODIUM CHLORIDE 0.9% 1000ML 250 ML IV ONE (15:18)
[2019-11-08] MEDS: DAPTOmycin 300 MG in SYRINGE 0 ML IV SCH (16:14)
--- NOTE | 2019-11-08 16:38 | Billing Data ---
Date of Service November 08, 2019 Coding Level of Care Code 92741 Subseq Hosp Care Lvl 3
[2019-11-08] MEDS: OXYCODONE HCL IR 5 MG TAB (IMMEDIATE RELEASE) PO PRN (18:12)
--- NOTE | 2019-11-08 20:01 | Wound Consultation ---
Date of Consultation November 08, 2019 Assessment & Plan (1) Venous stasis dermatitis of both lower extremities: This is a 69-year-old female with chronic venous stasis ulcers of the lower extremities with foul discharge. No debridement was required. Wound culture was obtained. Will await results. We will apply absorbent dressings to help keep wounds dry. Due to patient's heart failure would avoid compression at this time. We will continue to follow. Thank you for limited to spent in the care of this patient. Please hesitate to call with any questions. (2) Chronic wound of extremity: History of Present Illness Reason for Consultation: Bilateral leg wounds Attending Physician: Scott Shin DO History of Present Illness This is a 69-year-old female with a past medical history of hypertension, paroxysmal atrial fibrillation, severe LV dysfunction with an EF of 25 to 30%, RV dysfunction, visual impairment, atrial ectopy, hyperlipidemia venous stasis ulcers who was admitted with closed fracture of her left hip. Admission was found that the patient had bilateral venous stasis ulcers with foul-smelling drainage. Patient was also found to be infested with bedbugs. I been asked to see the patient with regards to the venous stasis ulcers. Allergies Allergy/AdvReac Type Severity Reaction Status Date / Time Penicillins Allergy Unknown PT STATES Verified 03/03/19 05:00 "THINK THE DOSE WAS TO HIGH"-CAN'T REMEMBER REACT Home Medications Home Medications Medication Instructions Recorded Confirmed Type acetaminophen 1,000 mg PO Q6H PRN 06/21/18 11/07/19 History aspirin 81 mg PO DAILY #30 tab 06/26/18 11/07/19 Rx furosemide [Lasix] 40 mg PO DIRECTED 11/07/19 11/07/19 History lisinopril 5 mg PO DIRECTED 11/07/19 11/07/19 History Patient History Medical History Acute combined systolic and diastolic congestive heart failure (Acute) Acute renal insufficiency 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 Goals of care, counseling/discussion HTN (hypertension) (Chronic) Hyperlipemia (Chronic) Hypotension With her hypotension, her Hb is up from prior, and creatinine has bumped significantly in one day so appears to be intravascularly dry - unsure how she will tolerate fluid challenge but may make her tolerate anesthesia better Tachycardia Visual impairment (Chronic) Surgical History No pertinent past surgical history Family History Other No pertinent family history Social History Preferred Language: Dutch Communication Ability: Effective Rail 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 Required: No Beliefs That Will Affect Care: Baptism Current Living Situation: Alone Feels Safe at Home: Yes Smoking Status: Current every day smoker Tobacco Type: cigarettes ; Cigarettes Per Day: 10 ; Hx Alcohol Use: No Hx Substance Use: No Review of Systems Review of Systems: All systems reviewed & are unremarkable except as noted in HPI & below Physical Exam Constitutional: + acute distress and + thin Eyes: PERRL, conjunctivae normal, anicteric sclerae ENMT: Ears: no hearing impairment Respiratory: normal respiratory effort, lungs clear to auscultation Cardiovascular: Rate/Rhythm: + tachycardic Skin: Patient with bilateral chronic venous stasis changes with foul discharge up to the knees. She has thick scaling on bilateral lower extremities. Neurologic: awake; not confused Psychiatric: A+Ox3, euthymic affect Results & Data Vital Signs (Past 12 Hours) Vital Signs Temp Pulse Pulse Resp BP BP Pulse Ox 11/08/19 18:53 36.8 C 124 H 18 99/59 L 94 11/08/19 17:40 111/77 92 11/08/19 16:00 125 H 11/08/19 15:50 36.5 C 130 H 19 112/74 87 L 11/08/19 12:20 36.6 C 127 H 16 92/60 L 100 11/08/19 09:58 122 H PG Care Time/CCT Total # of Minutes Spent Total Time Spent with Patient: Total time spent is greater than 50% in coordination of care (as documented) at patient's floor/unit and/or counseling patient:
[2019-11-08] MEDS: AMMONIUM LACTATE 12% LOTION 225 GM BTL EXT SCH (21:27)
[2019-11-08] MEDS: ACETAMINOPHEN 500 MG TAB PO SCH (21:27)
[2019-11-08] MEDS: DOCUSATE SODIUM/SENNA 50/8.6MG TAB PO SCH (21:28)
[2019-11-09] MEDS: OXYCODONE HCL IR 5 MG TAB (IMMEDIATE RELEASE) PO PRN ×3 (00:27→20:22)
[2019-11-09] MEDS ORDERED: KETOROLAC TROMETHAMINE 15 MG/ML VIAL IV ONE (03:23)
[2019-11-09] MEDS ORDERED: KETOROLAC TROMETHAMINE 15 MG/ML VIAL ONE (03:30)
[2019-11-09 06:54] LABS: Basophils # (auto) 0.02 K/uL (0-0.2); Basophils % (auto) 0.1 %; Eosinophils # (auto) 0.03 K/uL (0-0.5); Eosinophils % (auto) 0.2 %; Hematocrit (blood only) 41.3 % (37-47); Hemoglobin 13.1 g/dL (12.0-16.0); Immature Granulocytes # (auto) 0.03 K/uL (0.00-0.02); Immature Granulocytes % (auto) 0.2 %; Lymphocytes # (auto) 0.93 K/uL (1.2-3.4); Lymphocytes % (auto) 6.9 %; Mean Corpuscular Hemoglobin 29.3 pg (25-34); Mean Corpuscular Hgb Conc 31.7 g/dL (32-36); Mean Corpuscular Volume 92.4 fL (80-100); Mean Platelet Volume 8.5 fL (7.4-10.4); Monocytes # (auto) 1.59 K/uL (0.11-0.59); Monocytes % (auto) 11.8 %; Neutrophils # (auto) 10.86 K/uL (1.4-6.5); Neutrophils % (auto) 80.8 %; Platelet Count 239 K/uL (130-400); RDW Coefficient of Variation 15.5 % (11.5-14.5); Red Blood Count 4.47 M/uL (4.2-5.4); White Blood Count 13.46 K/uL (4.8-10.8)
--- NOTE | 2019-11-09 07:01 | Hospitalist Progress Note ---
Date of Service November 09, 2019 Assessment & Plan (1) Goals of care, counseling/discussion: Mrs. Liane Arreguin is a wonderful 69yo woman with a history of severe biventricular heart failure, HTN, HLD, venous insufficiency, and chronically infected leg wounds who is here following a fall that led to a left hip fracture Closed displaced fracture of left femoral neck: -Seen by orthopedic surgery, they do not want to operate at this time -Patient very high risk for any sort of procedure due to the tenuous status of her heart as well as increased infection risk from her leg infection -Pressures have been soft and have dropped further with opioid medications, therefore will continue Tylenol, Toradol -Patient's pain has been well controlled -Ongoing bed rest Cardiomyopathy: Patient has known cardiomyopathy, last echo in February 2019 shows EF 25 to 30%, global hypokinesis, mild LVH, severely dilated right ventricle with reduced systolic function, severe biatrial dilation, moderate aortic valve sclerosis and mild pulmonary hypertension. -Unsure if ischemic, no records of cardiac catheterization. -Does appear to be in sinus tachycardia at this time. She has been resistant to Lopressor treatment for this. -Certainly adds to the picture of someone who is very high risk for any major surgeries. Cardiology consulted agree that patient is very high risk but also that there is no great alternative and that if hip not repaired to the point of being ambulatory she would also likely have a very poor outcome. Tachyarrhythmia: Appears to be sinus tachycardia May be secondary to her heart failure, will not treat at this time per cardiology Infestation by bed bug: Contact Precautions. Wounds, multiple open, lower extremity: Wound care consulted Patient's legs with pungent smell, purulent discharge Will cover with daptomycin at this point to guarantee MRSA coverage Acute combined systolic and diastolic congestive heart failure: Bolused 250 ml and patient immediately required 3L O2 but pressures did improve Will need to balance this precarious heart situation very carefully Started lowest dose entresto with holding parameters for blood pressure to try and reduce afterload Will try now as pressures look like they may tolerate it but low threshold for discontinuation Visual impairment: No acute issues. Venous stasis dermatitis of both lower extremities: Appears to have longstanding venous stasis dermatitis of both lower extremities with history of cellulitis and sepsis from these as recently as February 2019. consulted wound care provider Started patient on daptomycin Mental Health: Patient admitted in February 2019 for sepsis likely secondary from chronic lower extremity cellulitis. She was seen by psychiatry at that time and evaluated, they did find her thought process to be circumstantial and at times difficult to redirect, however she denied auditory or visual hallucinations and at that time and there was not sufficient criteria to suggest a formal thought disorder. No clear indication to begin any psychiatric medications. There was also concern for possible neglect given that she is by report taken care of by her daughters and discussion of Office of Aging becoming involved? there did not appear to be neglect but rather a refusal by patient to participate with going to doctors appointments and wishing to be left alone by her children who she thinks is stealing from her. Case management consulted to aid in these issues as above. Appreciate recommendations. FEN/GI: Heart healthy diet sodium restriction DVT ppx: heparin q12 CODE STATUS: FULL DISPO: Patient will remain inpatient on med/surg floor until decision is made about surgery. Supervising Physician Co-Signing Physician Notes I personally examined the patient and verified all song points of history and exam, discussed case, and agree with decision making with Dr Brandt. pain reasonable but off and on. would like to proceed with surgery when possible. niece halina present at bedside - asking questions and showing genuine concern - pt consents to discuss her care with halina and to be able to use halina as a customer contact specialist. Vitals noted, in general she is awake and alert pleasant no distress. Vision is very poor. HEENT normocephalic atraumatic mucous membranes are moist. Breathing is unlabored no accessory muscle use. other than vision, no focal neuro deficits Hip fracturegiven the patient's underlying cardiomyopathy she is high risk for surgical repair, but she is also extremely high risk for terrible outcome with conservative care. She would like to proceed with surgery when possible - will try to optimize cardiac and infection statuses to make this feasible sooner if it can be done. Venous stasis dermatitis with cellulitic ulcersgiven the purulence, MRSA seems reasonably probable, continue antibiotic coverage for such. continue local wound care Severe combined systolic and diastolic and right-sided CHFvery delicate and difficult fluid management. Right now pressures reasonable, needing 2L but otherwise breathing reasonable. cautious trial of afterload reduction. DVT proph - heparin SQ Subjective Ms. Arreguin is doing well this morning, her nieces came to visit her and she is in higher spirits. She has decided she wants to be as aggressive as possible and would like to go through with a surgery. Unfortunately we discussed that so far surgery does not feel comfortable with surgery based on her cardiac status and leg infections. She remains on oxygen but does not endorse any shortness of breath. Pain is well controlled, denies any other symptoms at this time Review of Systems Review of Systems: All systems reviewed & are unremarkable except as noted in HPI & below Physical Exam Constitutional: + thin and + cachectic; no altered mental status and no behavioral limitations Eyes: PERRL, conjunctivae normal, anicteric sclerae ENMT: external ear and nose normal, oropharynx normal Respiratory: normal respiratory effort, lungs clear to auscultation Auscultation: + rales (audible globally ); no crackles, no rhonchi and no wheezes Cardiovascular: Rate/Rhythm: regular rate and regular rhythm Heart Sounds: normal S1 and normal S2; no click, no gallop, no murmur and no cardiac rub Gastrointestinal (Abdomen): normal bowel sounds, soft, nontender, no hepatosplenomegaly Results & Data Vital Signs (Past 12 Hours) Vital Signs Temp Pulse Pulse Resp BP BP Pulse Ox 11/09/19 03:46 36.4 C L 76 18 120/81 94 11/09/19 03:11 104 H 105/63 11/08/19 23:25 36.6 C 70 18 112/63 97 11/08/19 22:24 100 H Resident Activity Tracking Resident Involvement: Resident Care Provided Care Provided: Adult Hospital Medicine
[2019-11-09 07:23] LABS: BUN Creatinine Ratio 23.7 (10-20); Calcium 8.4 mg/dl (8.5-10.1); Creatinine Clr Calc Pharmacy 38.7 ml/min; Est GFR (African American) 38.9; Est GFR (Non-African American) 33.6; Potassium 4.8 mmol/L (3.5-5.1)
--- NOTE | 2019-11-09 07:54 | Ultrasound Report ---
US arterial duplex LE CLINICAL HISTORY: 69 years-old Female presenting with ulcers, multiple nonhealing wounds on the bilat eral calves. TECHNIQUE: Real-time grayscale and color and spectral Doppler ultrasound imaging of the bilateral low er extremities arteries was performed. Measurements calculated based on NASCET criteria. COMPARISON: None. FINDINGS: RIGHT: External iliac artery: Patent. Monophasic waveforms. Peak systolic velocity (PSV) 116-232 cm/s. Common femoral artery: Patent. Monophasic waveforms. PSV 117-139 cm/s. Deep femoral artery: Patent. Monophasic waveforms. PSV 76 cm/s. Superficial femoral artery: Patent. Monophasic waveforms. PSV 81-129 cm/s. Popliteal artery: Patent. Monophasic waveforms. PSV 88-106 cm/s. Anterior tibial artery: Patent in the proximal portion; mid to distal not interrogated. Monophasic wa veforms. PSV 120-122 cm/s. Posterior tibial artery: Patent in the proximal portion; mid to distal not interrogated. Monophasic w aveforms. PSV 21 cm/s. Peroneal artery: Patent in the proximal portion; mid to distal not interrogated. Monophasic waveforms . PSV 28-46 cm/s. Dorsalis pedis: Not interrogated. LEFT: External iliac artery: Not visualized due to poor sonographic window. Common femoral artery: Patent. Monophasic waveforms. Peak systolic velocity (PSV) 96-98 cm/s. Deep femoral artery: Extensive irregularity due to atherosclerotic plaque. Monophasic waveforms. PSV 75 cm/s. Superficial femoral artery: Patent. Monophasic waveforms. PSV 72 cm/s proximally with a focally eleva kristel velocity in the proximal to midportion measuring 155 cm/s, which represents a doubling of velocit y in comparison to more proximally. Mid SFA PSV 87 cm/s with a second site of elevated velocity in th e distal SFA with PSV 180 cm/s also consistent with a doubling. Popliteal artery: Patent. Monophasic waveforms. PSV 58-78 cm/s. Anterior tibial artery: Patent in the proximal portion; mid to distal not interrogated. Monophasic wa veforms. PSV 74 cm/s. Posterior tibial artery: Patent in the proximal portion; mid to distal not interrogated. Monophasic w aveforms. PSV 37 cm/s. Peroneal artery: Patent in the proximal portion; mid to distal not interrogated. Monophasic waveforms . PSV 48 cm/s. Dorsalis pedis: Not interrogated. ANKLE/BRACHIAL INDEX (SPEEDY): Not performed. Brachial: Right: mmHg. Left: mmHg. Ankle (posterior tibial): Right: mmHg. Left: mmHg. Ankle (dorsalis pedis): Right: mmHg. Left: mmHg. Ankle/brachial index: Right: , Left: . Reference ranges: Normal Ankle/Brachial Index (SPEEDY) 1.0-1.4; 0.91-0.99 borderline; < or = 0.9 abnormal (0.7-0.89 mild, 0.51-0.69 moderate, < or = 0.5 severe peripheral arterial disease). Normal Toe/Brachial Index (TBI) > or = 0.6; < 0.6 abnormal (0.34-0.59 mild, 0.12-0.34 moderate, < or = 0.11 severe peripheral arterial disease). IMPRESSION: 1. Multifocal hemodynamically significant stenoses in the left superficial femoral artery in the pro ximal to midportion and again in the distal portion evidence by a doubling of velocity. 2. No sonographic evidence of a focal hemodynamically significant stenosis in the right lower extrem ity, however, doubling of velocity evident in the right external iliac artery suggesting a hemodynami afshan significant pelvic arterial stenosis. 3. Examination limited by patient intolerance of sonographic interrogation of the mid to distal lowe r leg arteries due to the presence of multiple wounds. 4. Ankle brachial indices could not be performed due to patient intolerance. ACT 112: Negative or not required by law. Electronically signed by: Glen Joy M.D. 11/09/2019 7:53 AM
[2019-11-09] MEDS: ACETAMINOPHEN 500 MG TAB PO SCH ×3 (08:00→20:23)
[2019-11-09] MEDS: HEPARIN SOD 5,000 UNIT/0.5 ML VIAL SQ SCH ×2 (08:01→20:25)
[2019-11-09] MEDS: AMMONIUM LACTATE 12% LOTION 225 GM BTL EXT SCH ×2 (08:02→20:25)
[2019-11-09] MEDS: DAPTOmycin 300 MG in SYRINGE 0 ML IV SCH (15:53)
--- NOTE | 2019-11-09 17:31 | Billing Data ---
Date of Service November 09, 2019 Coding Level of Care Code 39338 Subseq Hosp Care Lvl 3
[2019-11-09] MEDS: SACUBITRIL-VALSARTAN 24-26 MG TAB PO SCH (20:23)
[2019-11-09] MEDS: DOCUSATE SODIUM/SENNA 50/8.6MG TAB PO SCH (20:24)
[2019-11-10] MEDS: OXYCODONE HCL IR 5 MG TAB (IMMEDIATE RELEASE) PO PRN ×3 (04:20→18:01)
--- NOTE | 2019-11-10 06:40 | XRay Report ---
XR chest 1V portable CLINICAL HISTORY: Hypoxemic Respiratory Failure COMPARISON STUDY: 11/07/2019 FINDINGS: The heart remains enlarged. There is no overt failure. There is no lobar consolidation. The re are no pleural effusions.[ IMPRESSION: Cardiomegaly. No evidence of focal pulmonary consolidation. ACT 112: Negative or not required by law. Electronically signed by: Christiano aWn M.D. 11/10/2019 6:38 AM
[2019-11-10 07:01] LABS: Basophils # (auto) 0.02 K/uL (0-0.2); Basophils % (auto) 0.2 %; Eosinophils # (auto) 0.08 K/uL (0-0.5); Eosinophils % (auto) 0.7 %; Hematocrit (blood only) 39.4 % (37-47); Hemoglobin 12.6 g/dL (12.0-16.0); Immature Granulocytes # (auto) 0.03 K/uL (0.00-0.02); Immature Granulocytes % (auto) 0.3 %; Lymphocytes # (auto) 1.44 K/uL (1.2-3.4); Lymphocytes % (auto) 12.2 %; Mean Corpuscular Hemoglobin 29.6 pg (25-34); Mean Corpuscular Volume 92.7 fL (80-100); Mean Platelet Volume 8.4 fL (7.4-10.4); Monocytes # (auto) 1.53 K/uL (0.11-0.59); Neutrophils # (auto) 8.67 K/uL (1.4-6.5); Neutrophils % (auto) 73.6 %; Platelet Count 215 K/uL (130-400); RDW Coefficient of Variation 15.5 % (11.5-14.5); RDW Standard Deviation 52.4 fL (36.4-46.3); Red Blood Count 4.25 M/uL (4.2-5.4); White Blood Count 11.77 K/uL (4.8-10.8)
[2019-11-10 07:38] LABS: BUN Creatinine Ratio 31.3 (10-20); Calcium 8.2 mg/dl (8.5-10.1); Creatinine Clr Calc Pharmacy 56.7 ml/min; Est GFR (African American) 61.9; Est GFR (Non-African American) 53.4; Potassium 4.5 mmol/L (3.5-5.1)
--- NOTE | 2019-11-10 09:26 | Hospitalist Progress Note ---
Date of Service November 10, 2019 Assessment & Plan (1) Goals of care, counseling/discussion: Mrs. Liane Arreguin is a wonderful 69yo woman with a history of severe biventricular heart failure, HTN, HLD, venous insufficiency, and chronically infected leg wounds who is here following a fall that led to a left hip fracture Closed displaced fracture of left femoral neck: -Seen by orthopedic surgery, they do not want to operate at this time until her leg wounds have resolved -Patient very high risk for any sort of procedure due to the tenuous status of her heart as well as increased infection risk from her leg infection -Pressures have been soft and have dropped further with opioid medications, therefore will continue Tylenol, Toradol -Patient's pain has been well controlled -Ongoing bed rest Cardiomyopathy: Patient has known cardiomyopathy, last echo in February 2019 shows EF 25 to 30%, global hypokinesis, mild LVH, severely dilated right ventricle with reduced systolic function, severe biatrial dilation, moderate aortic valve sclerosis and mild pulmonary hypertension. -Unsure if ischemic, no records of cardiac catheterization. -Does appear to be in sinus tachycardia at this time. She has been resistant to Lopressor treatment for this. -Certainly adds to the picture of someone who is very high risk for any major surgeries. Cardiology consulted agree that patient is very high risk but also that there is no great alternative and that if hip not repaired to the point of being ambulatory she would also likely have a very poor outcome. Tachyarrhythmia: Appears to be sinus tachycardia May be secondary to her heart failure, will not treat at this time per cardiology Infestation by bed bug: Contact Precautions. Wounds, multiple open, lower extremity: Wound care consulted Patient's legs with pungent smell, purulent discharge Culture growing MSSA Transitioned from Daptomycin to Keflex Acute combined systolic and diastolic congestive heart failure: Patient has signs of volume overload got hypoxic after 250 ml fluid bolus Will need to balance this precarious heart situation very carefully Started lowest dose entresto with holding parameters for blood pressure to try reduce afterload. Patient did not tolerate due to bp d/c'd Cardiology recommending possible low dose of carvedilol when pressures tolerate but for now we will stand pat. Visual impairment: No acute issues. Venous stasis dermatitis of both lower extremities: Appears to have longstanding venous stasis dermatitis of both lower extremities with history of cellulitis and sepsis from these as recently as February 2019. consulted wound care provider, progress already being made, necrotic tissue be ing removed Keflex QID Home Safety: Patient admitted in February 2019 for sepsis likely secondary from chronic lower extremity cellulitis. She was seen by psychiatry at that time and evaluated, they did find her thought process to be circumstantial and at times difficult to redirect, however she denied auditory or visual hallucinations and at that time and there was not sufficient criteria to suggest a formal thought disorder. No clear indication to begin any psychiatric medications. There was also concern for possible neglect given that she is by report taken care of by her daughters and discussion of [employer] of Aging becoming involved? there did not appear to be neglect but rather a refusal by patient to participate with going to doctors appointments and wishing to be left alone by her children who she thinks is stealing from her. Case management consulted to aid in these issues as above. Appreciate recommendations. FEN/GI: Heart healthy diet sodium restriction DVT ppx: heparin q12 CODE STATUS: FULL DISPO: Patient will remain inpatient on med/surg floor, will seek second opinion on surgical candidacy Supervising Physician Co-Signing Physician Notes I personally examined the patient and verified all song points of history and exam, discussed case, and agree with decision making with Dr Brandt. pain reasonable for the most part - but skin still urtts some - less than before though. seen during wound care treatment. discussed plans and answered questions. patient in good sspirits - asking us to return later to watch a movie, and "make sure to bring some wine!" Vitals noted, in general she is awake and alert pleasant no distress. Vision is very poor. HEENT normocephalic atraumatic mucous membranes are moist. Breathing is unlabored no accessory muscle use. other than vision, no focal neuro deficits. b/l LE edema less than before, less exudate than before alth ough some still present - no ertyhema, chronic changes and skin - but much better than prior. Hip fracturegiven the patient's underlying cardiomyopathy she is high risk for surgical repair, but she is also extremely high risk for terrible outcome with conservative care. She would like to proceed with surgery when/if possible - ctoninue to try to optimize cardiac and infection statuses to make this feasible sooner if it can be done. Venous stasis dermatitis with cellulitic ulcersfortunately showing improvement - and cultures showing MSSA - can change to [facility] and follow. continue local care. Severe combined systolic and diastolic and right-sided CHFvery delicate and difficult fluid management. Right now pressures reasonable, needing 2L but otherwise breathing reasonable. BP too low to tolearte afterload reduction - cardiology suggests cautious trial of coreg. consider digoxin or aldactone DVT proph - heparin SQ Subjective Patient doing okay this morning, only symptom of concern is constipation. She is straining to have a bowel motion without success. She otherwise is doing well and says she has little to no pain in her left hip/groin. She reiterates that she does not want to try any further heart medications but wants to know if there are any exercises she can do to make her heart stronger, we discussed the possible benefits of some of these medications and she is not impressed. ROS otherwise negative Review of Systems Review of Systems: All systems reviewed & are unremarkable except as noted in HPI & below Physical Exam Physical Exam: Constitutional: + thin and + cachectic; no altered mental status and no behavioral limitations Eyes: PERRL, conjunctivae normal, anicteric sclerae ENMT: external ear and nose normal, oropharynx normal Respiratory: normal respiratory effort, lungs clear to auscultation Auscultation: + rales (audible globally ); no crackles, no rhonchi and no wheezes Cardiovascular: Rate/Rhythm: regular rate and regular rhythm Heart Sounds: normal S1 and normal S2; no click, no gallop, no murmur and no cardiac rub Gastrointestinal (Abdomen): normal bowel sounds, soft, nontender, no hepatosplenomegaly Skin: Diffuse bilateral lower leg rash with open wounds and purulent discharge Results & Data Vital Signs (Past 12 Hours) Vital Signs Temp Pulse Pulse Resp BP BP Pulse Ox 11/10/19 07:55 93 H 11/10/19 07:06 36.6 C 99 H 18 85/54 L 97 11/10/19 05:35 132 H 11/10/19 04:00 36.7 C 87 20 88/55 L 87/59 L 95 11/09/19 23:24 96 H 11/09/19 23:00 36.8 C 95 H 18 86/54 L 94 11/09/19 22:04 89/54 L 83/52 L
[2019-11-10] MEDS: AMMONIUM LACTATE 12% LOTION 225 GM BTL EXT SCH ×2 (09:49→20:48)
[2019-11-10] MEDS: ACETAMINOPHEN 500 MG TAB PO SCH ×3 (09:50→20:49)
[2019-11-10] MEDS: HEPARIN SOD 5,000 UNIT/0.5 ML VIAL SQ SCH ×2 (09:50→20:49)
[2019-11-10] MEDS: SACUBITRIL-VALSARTAN 24-26 MG TAB PO SCH (10:00)
--- NOTE | 2019-11-10 12:50 | Cardiology Progress Note ---
Date of Service November 10, 2019 Assessment & Plan (1) Tachycardia: Sinus tachycardia. This waxes and wanes in severity. Likely related to volume changes, poor nutrition and possibly catabolic state. Overall this appears to be improved. (2) Cardiomyopathy: She is known to have biventricular failure. She does have significant lower extremity edema and likely more significant right heart failure than left. Her lung examination is relatively benign. She was started on Entresto last evening but has had recurrent hypotension. This medication was discontinued. If she is not likely to have surgery in the near future, institution of beta-blo ckade may be more beneficial. She could start on low-dose carvedilol and monitor her response. Certainly we should wait until her blood pressure has normalized. I do not believe she requires any diuresis currently, but will need to monitor her symptoms. We could use cautious diuretics in the setting of her right ventricular failure to help with peripheral edema although this could compromise pre load and exacerbate the situation. At this point I would reserve diuretics for evidence of pulmonary vascular congestion. Subjective This morning patient's main concern is constipation. She was frustrated over the course of the evening with her inability to have a bowel movement. As result, she did not get much sleep. She states that her breathing is not a problem. She does not report dyspnea. She has not had chest pain. She obviously has not been ambulatory her out of bed given her hip fracture. Review of Systems Review of Systems: Per HPI Physical Exam Physical Exam: She is alert and oriented x3. Mood affect appear normal. She answered all questions appropriately. HEENT: Sclerae are anicteric. Extraocular movements were intact. Neuro: Cranial nerves intact Lungs: Lungs are clear to auscultation bilaterally. There are no rales wheezes or rhonchi. She has normal respiratory effort without use of accessory muscles. There is normal pulmonary excursion. Cardiac: The rhythm was regular. S1 and S2 were normal. There are no murmurs on examination. The PMI was not markedly displaced on palpation. Abdomen: The abdomen was soft and nontender. Extremities: Patient has bilateral radial pulses that are equal in intensity. There is no evidence cyanosis or clubbing. Lower extremities have significant skin changes with weeping and fell discharge. Results & Data Vital Signs (Past 12 Hours) Vital Signs Temp Pulse Pulse Resp BP BP Pulse Ox 11/10/19 11:32 37.1 C 112 H 18 83/58 L 95 11/10/19 07:55 93 H 11/10/19 07:06 36.6 C 99 H 18 85/54 L 97 11/10/19 05:35 132 H 11/10/19 04:00 36.7 C 87 20 88/55 L 87/59 L 95 Laboratory Results Abnormal Lab Results 11/10/19 11/10/19 06:51 06:51 WBC 11.77 H RBC 4.25 Hgb 12.6 Hct 39.4 MCV 92.7 MCH 29.6 MCHC 32.0 RDW Std Deviation 52.4 H RDW Coeff of [place] 15.5 H Plt Count 215 MPV 8.4 Immature Gran % (Auto) 0.3 Neut % (Auto) 73.6 Lymph % (Auto) 12.2 [place] % (Auto) 13.0 Eos % (Auto) 0.7 Baso % (Auto) 0.2 Immature Gran # (Auto) 0.03 H Neut # (Auto) 8.67 H Lymph # (Auto) 1.44 [place] # (Auto) 1.53 H Eos # (Auto) 0.08 Baso # (Auto) 0.02 Sodium 133 L Potassium 4.5 Chloride 102 Carbon Dioxide 26 Anion Gap 5.0 BUN 33 H Creatinine 1.05 Est Cr Clr Drug Dosing 56.7 Est GFR ( Amer) 61.9 Est GFR (Non-Af Amer) 53.4 BUN/Creatinine Ratio 31.3 H Glucose 84 Calcium 8.2 L PG Care Time/CCT Total # of Minutes Spent Total Time Spent with Patient: Total time spent is greater than 50% in coordination of care (as documented) at patient's floor/unit and/or counseling patient:
[2019-11-10] MEDS: cephALEXin 500 MG CAP PO SCH (17:25)
--- NOTE | 2019-11-10 17:48 | Billing Data ---
Date of Service November 10, 2019 Coding Level of Care Code 24433 Subseq Hosp Care Lvl 3
[2019-11-10] MEDS: DOCUSATE SODIUM/SENNA 50/8.6MG TAB PO SCH (20:48)
[2019-11-11] MEDS ORDERED: carvediloL 3.125 MG TAB PO ONE (00:12)
[2019-11-11] MEDS: OXYCODONE HCL IR 5 MG TAB (IMMEDIATE RELEASE) PO PRN (04:02)
[2019-11-11 06:07] LABS: Basophils # (auto) 0.02 K/uL (0-0.2); Basophils % (auto) 0.2 %; Eosinophils # (auto) 0.14 K/uL (0-0.5); Eosinophils % (auto) 1.5 %; Hematocrit (blood only) 40.9 % (37-47); Hemoglobin 12.8 g/dL (12.0-16.0); Immature Granulocytes # (auto) 0.04 K/uL (0.00-0.02); Immature Granulocytes % (auto) 0.4 %; Lymphocytes # (auto) 1.43 K/uL (1.2-3.4); Lymphocytes % (auto) 15.1 %; Mean Corpuscular Hemoglobin 29.2 pg (25-34); Mean Corpuscular Hgb Conc 31.3 g/dL (32-36); Mean Corpuscular Volume 93.4 fL (80-100); Mean Platelet Volume 8.6 fL (7.4-10.4); Monocytes # (auto) 1.14 K/uL (0.11-0.59); Neutrophils % (auto) 70.8 %; Platelet Count 247 K/uL (130-400); RDW Coefficient of Variation 15.5 % (11.5-14.5); RDW Standard Deviation 52.8 fL (36.4-46.3); Red Blood Count 4.38 M/uL (4.2-5.4); White Blood Count 9.47 K/uL (4.8-10.8)
[2019-11-11 06:36] LABS: BUN Creatinine Ratio 33.9 (10-20); Calcium 8.4 mg/dl (8.5-10.1); Est GFR (African American) 53.2; Est GFR (Non-African American) 45.9
[2019-11-11] MEDS: HEPARIN SOD 5,000 UNIT/0.5 ML VIAL SQ SCH ×2 (08:27→21:14)
[2019-11-11] MEDS: cephALEXin 500 MG CAP PO SCH ×2 (08:27→17:08)
[2019-11-11] MEDS: ACETAMINOPHEN 500 MG TAB PO SCH ×3 (08:29→21:12)
[2019-11-11] MEDS: AMMONIUM LACTATE 12% LOTION 225 GM BTL EXT SCH ×2 (08:30→21:11)
[2019-11-11] MEDS ORDERED: DIGOXIN 500 MCG/2 ML AMP IV ONE ×3 (10:20→22:30)
[2019-11-11] MEDS ORDERED: DIGOXIN IV STA (10:39)
[2019-11-11] MEDS: IBUPROFEN 600 MG TAB PO PRN (12:03)
[2019-11-11] MEDS: ONDANSETRON INJ 2 MG/ML 2 ML VIAL IV PRN ×2 (12:08→19:30)
--- NOTE | 2019-11-11 13:02 | Cardiology Progress Note ---
Date of Service November 11, 2019 Assessment & Plan (1) Tachycardia: Now in atrial fibrillation (2) Cardiomyopathy: Biventricular failure. Not currently on medical therapy due to persistently low blood pressures. She is not appear to have pulmonary vascular congestion by history or exam. Do not believe is an urgent indication for diuretics. As her clinical condition improves we may have an opportunity to initiate low-dose beta blockade. This would also help with her current rhythm abnormality. (3) Atrial fibrillation: She currently has atrial fibrillation. This appears to be a new diagnosis, but not surprising given her known cardiomyopathy and illness. It is possible that she has had other episodes of atrial fibrillation that have not been documented. Use of digoxin seems like a reasonable intervention given her low blood pressure. This may also be more effective given her inactivity. Renal function is normal which makes this a good option. Again, as her blood pressure improved may have an opportunity at beta-blockade as well. She should be started on systemic anticoagulation if there is no current plans for surgical intervention. She appears to be a good candidate for either Eliquis or Xarelto. Subjective Seven in the patient complained of nausea. It seems that she became nauseated when smelling her lunch. The nursing staff suggested that she also gets nauseated with changes in position due to hip pain. She does continue to have an element of hip pain. She denies any breathing difficulty. She has not been aware of any palpitations. She denies any dizziness or lightheadedness. Review of Systems Review of Systems: Per HPI Physical Exam Physical Exam: She is alert and oriented x3. Mood affect appear normal. She answered all questions appropriately. HEENT: Sclerae are anicteric. Extraocular movements were intact. Neuro: Cranial nerves intact Lungs: Lungs are clear to auscultation bilaterally. There are no rales wheezes or rhonchi. She has normal respiratory effort without use of accessory muscles. There is normal pulmonary excursion. Cardiac: The rhythm was regular. S1 and S2 were normal. There are no murmurs on examination. The PMI was not markedly displaced on palpation. Abdomen: The abdomen was soft and nontender. Extremities: Patient has bilateral radial pulses that are equal in intensity. There is no evidence cyanosis or clubbing. Lower extremities have significant skin changes with weeping and fell discharge. Results & Data Vital Signs (Past 12 Hours) Vital Signs Temp Pulse Pulse Pulse Resp BP BP 11/11/19 12:00 36.6 C 72 20 93/51 L 11/11/19 10:57 100 H 11/11/19 07:29 36.8 C 69 18 90/53 L 11/11/19 04:00 37.1 C 117 H 20 94/54 L 89/56 L 11/11/19 01:05 125 H 87/47 L 83/52 L Pulse Ox 11/11/19 12:00 93 11/11/19 10:57 11/11/19 07:29 94 11/11/19 04:00 94 11/11/19 01:05 PG Care Time/CCT Total # of Minutes Spent Total Time Spent with Patient: Total time spent is greater than 50% in coordination of care (as documented) at patient's floor/unit and/or counseling patient: Coding Level of Care Code 73928 Subseq Hosp Care Lvl 3 Diagnoses Tachycardia R00.0 Cardiomyopathy I42.9 Atrial fibrillation I48.91
[2019-11-11] MEDS: DIGOXIN IV SCH ×2 (17:07→22:12)
--- NOTE | 2019-11-11 17:53 | Billing Data ---
Date of Service November 11, 2019 Coding Level of Care Code 45597 Subseq Hosp Care Lvl 3
--- NOTE | 2019-11-11 19:45 | Hospitalist Progress Note ---
Date of Service November 11, 2019 Assessment & Plan (1) Goals of care, counseling/discussion: Mrs. Liane Arreguin is a wonderful 69yo woman with a history of severe biventricular heart failure, HTN, HLD, venous insufficiency, and chronically infected leg wounds who is here following a fall that led to a left hip fracture Closed displaced fracture of left femoral neck: -Seen by orthopedic surgery, they do not want to operate at this time until her leg wounds have resolved -Patient very high risk for any sort of procedure due to the tenuous status of her heart as well as increased infection risk from her leg infection -Pressures have been soft and have dropped further with opioid medications, therefore will continue Tylenol, ibuprofen -Patient's pain has been well controlled -Ongoing bed rest will reach out to orthopedic surgery to discuss whether or not she can sit up with the hip fracture for physical therapy Cardiomyopathy: Patient has known cardiomyopathy, last echo in February 2019 shows EF 25 to 30%, global hypokinesis, mild LVH, severely dilated right ventricle with reduced systolic function, severe biatrial dilation, moderate aortic valve sclerosis and mild pulmonary hypertension. -Does appear to be in sinus tachycardia at this time. She has been resistant to Lopressor treatment for this. -Certainly adds to the picture of someone who is very high risk for any major surgeries. Cardiology consulted agree that patient is very high risk but also that there is no great alternative and that if hip not repaired to the point of being ambulatory she would also likely have a very poor outcome. A fib RVR: Due to soft pressures treating with digoxin which appears to have slowed heart rate With pressures improved may consider starting a beta alis in AM Infestation by bed bug: Contact Precautions. Wounds, multiple open, lower extremity: Wound care consulted Patient's legs with pungent smell, purulent discharge though improved today Culture growing MSSA Transitioned from Daptomycin to Keflex Acute combined systolic and diastolic congestive heart failure: Patient has signs of volume overload got hypoxic after 250 ml fluid bolus Will need to balance this precarious heart situation very carefully Attempted to start the lowest dose entresto with holding parameters for blood pressure to try reduce afterload. Patient did not tolerate due to bp d/c'd Cardiology recommending possible low dose of carvedilol when pressures tolerate but for now we will stand pat. If pressures and rate continue to be improved in AM we can start carvedilol Visual impairment: No acute issues. Venous stasis dermatitis of both lower extremities: Appears to have longstanding venous stasis dermatitis of both lower extremities with history of cellulitis and sepsis from these as recently as February 2019. consulted wound care provider, progress already being made, necrotic tissue being removed Keflex QID Home Safety: Patient admitted in February 2019 for sepsis likely secondary from chronic lower extremity cellulitis. She was seen by psychiatry at that time and evaluated, they did find her thought process to be circumstantial and at times difficult to redirect, however she denied auditory or visual hallucinations and at that time and there was not sufficient criteria to suggest a formal thought disorder. No clear indication to begin any psychiatric medications. There was also concern for possible neglect given that she is by report taken care of by her daughters and discussion of [employer] becoming involved? there did not appear to be neglect but rather a refusal by patient to participate with going to doctors appointments and wishing to be left alone by her children who she thinks is stealing from her. Case management consulted to aid in these issues as above. Appreciate recommendations. FEN/GI: Heart healthy diet sodium restriction DVT ppx: heparin q12 CODE STATUS: FULL DISPO: Patient will remain inpatient on med/surg floor until she is able to be discharged to a SNF facility, patient will be nonambulatory and will not be able to take care of herself at home. Supervising Physician Co-Signing Physician Notes I personally examined the patient and verified all song points of history and exam, discussed case, and agree with decision making with Dr Brandt. pain in good control. no issues breathing. no new complaints otherwise. accepting that this will likely be a long situation and that surgery not likely to be able to be done. Vitals noted, in general she is awake and alert pleasant no distress. Vision is very poor. HEENT normocephalic atraumatic mucous membranes are moist. Breathing is unlabored no accessory muscle use. other than vision, no focal neuro deficits. good mentation, good spirits - normal mood and affect. Hip fracturegiven the patient's underlying cardiomyopathy she is high risk for surgical repair, but she is also extremely high risk for terrible outcome with conservative care. after formal ortho consult and multiple discussions - does not appear to be safe operative candidate for many reasons include perioperative heart risk and post op infection risk. Venous stasis dermatitis with cellulitic ulcersfortunately showing improvement - and cultures showing MSSA - continue w cephalexin, local wound care. follow. Severe combined systolic and diastolic and right-sided CHFvery delicate and difficult fluid management. Right now pressures reasonable, needing 2L but otherwise breathing reasonable. BP too low to tolerate afterload reduction, or coreg. afib - rates too high - possibly even leading to some of the diastolic chf above - but BP too low to tolerate much of any management. trial of digoxin. eventually transition to anticoagulation for stroke proph - but with risk not so high as to warrant bridging, and hip fx significant risk for bleed (and BP too low to have much margin of error hemodynamically) - hold off on full dose anticoagulation for now. DVT proph dosing significantly less risk for bleeding and at least will help some in this regard. DVT proph - heparin SQ Subjective Liane Arreguin resting comfortably this morning, though she is in A fib with RVR she is not endorsing any new symptoms. Blood pressure has been 80's/50's and she agreed to try digoxin which quickly got rates under control. She is not in any pain and understands that she is not a surgical candidate at this time. Review of Systems Review of Systems: All systems reviewed & are unremarkable except as noted in HPI & below Physical Exam Physical Exam: Constitutional: + thin and + cachectic; no altered mental status and no behavioral limitations Eyes: PERRL, conjunctivae normal, anicteric sclerae ENMT: external ear and nose normal, oropharynx normal Respiratory: normal respiratory effort, lungs clear to auscultation Auscultation: + rales (audible globally ); no rhonchi and no wheezes Cardiovascular: irregularly irregular rhythm, tachycardic Heart Sounds: normal S1 and normal S2; Gastrointestinal (Abdomen): normal bowel sounds, soft, nontender, no hepatosplenomegaly Skin: Diffuse bilateral lower leg rash with open wounds looks to be improving, foul smell is much improved Results & Data Vital Signs (Past 12 Hours) Vital Signs Temp Pulse Pulse Resp BP Pulse Ox 11/11/19 19:26 36.5 C 53 L 18 111/72 11/11/19 17:07 139 H 11/11/19 16:00 89 L 11/11/19 15:54 36.7 C 75 18 96/55 L 93 11/11/19 12:00 36.6 C 72 20 93/51 L 93 11/11/19 10:57 100 H Resident Activity Tracking Resident Involvement: Resident Care Provided Care Provided: [facility]
[2019-11-11] MEDS: DOCUSATE SODIUM/SENNA 50/8.6MG TAB PO SCH ×2 (21:13→21:15)
[2019-11-12] MEDS: IBUPROFEN 600 MG TAB PO PRN ×3 (02:35→23:30)
--- NOTE | 2019-11-12 05:32 | Electrocardiogram Report ---
Test Reason : Blood Pressure : / mmHG Vent. Rate : 132 BPM Atrial Rate : 131 BPM P-R Int : 000 ms QRS Dur : 090 ms QT Int : 262 ms P-R-T Axes : 000 012 095 degrees QTc Int : 388 ms Atrial fibrillation with rapid ventricular response Low voltage QRS Nonspecific T wave abnormality Abnormal ECG When compared with ECG of 07-NOV-2019 04:20, Atrial fibrillation is now present T wave inversion less evident in Lateral leads Reconfirmed by Christian Scott ([id number]) on 11/12/2019 5:32:34 AM Referred By: REFERRED SELF Confirmed By:Christian Scott
--- NOTE | 2019-11-12 05:55 | Electrocardiogram Report ---
Test Reason : Blood Pressure : / mmHG Vent. Rate : 116 BPM Atrial Rate : 105 BPM P-R Int : 000 ms QRS Dur : 086 ms QT Int : 276 ms P-R-T Axes : 000 007 091 degrees QTc Int : 383 ms Atrial fibrillation with rapid ventricular response Nonspecific T wave abnormality Abnormal ECG When compared with ECG of 10-NOV-2019 23:59, No significant change was found Confirmed by Christian Scott ([id number]) on 11/12/2019 5:55:35 AM Referred By: REFERRED SELF Confirmed By:Christian Scott
[2019-11-12 06:49] LABS: Basophils # (auto) 0.01 K/uL (0-0.2); Basophils % (auto) 0.1 %; Eosinophils # (auto) 0.17 K/uL (0-0.5); Eosinophils % (auto) 1.6 %; Hematocrit (blood only) 42.4 % (37-47); Hemoglobin 13.2 g/dL (12.0-16.0); Immature Granulocytes # (auto) 0.03 K/uL (0.00-0.02); Immature Granulocytes % (auto) 0.3 %; Lymphocytes # (auto) 1.43 K/uL (1.2-3.4); Lymphocytes % (auto) 13.4 %; Mean Corpuscular Hemoglobin 29.7 pg (25-34); Mean Corpuscular Hgb Conc 31.1 g/dL (32-36); Mean Corpuscular Volume 95.5 fL (80-100); Mean Platelet Volume 8.6 fL (7.4-10.4); Monocytes # (auto) 1.03 K/uL (0.11-0.59); Monocytes % (auto) 9.7 %; Neutrophils # (auto) 7.98 K/uL (1.4-6.5); Neutrophils % (auto) 74.9 %; Platelet Count 261 K/uL (130-400); RDW Coefficient of Variation 15.6 % (11.5-14.5); RDW Standard Deviation 53.8 fL (36.4-46.3); Red Blood Count 4.44 M/uL (4.2-5.4); White Blood Count 10.65 K/uL (4.8-10.8)
[2019-11-12 07:08] LABS: BUN Creatinine Ratio 36.1 (10-20); Calcium 8.6 mg/dl (8.5-10.1); Creatinine Clr Calc Pharmacy 52.7 ml/min; Est GFR (African American) 56.6; Est GFR (Non-African American) 48.9
--- NOTE | 2019-11-12 08:50 | Cardiology Progress Note ---
Date of Service November 12, 2019 Assessment & Plan (1) Tachycardia: Now in atrial fibrillation (2) Cardiomyopathy: Biventricular failure. Certainly she has an element of right ventricular failure that has resulted in significant lower extremity edema. Breathing appears to be good. Less prominent left heart failure. Prep would be able to start some beta-alis in the near future. (3) Atrial fibrillation: She currently has atrial fibrillation. Overall rate control is suboptimal. No overt symptoms. Whether will be able to control her rates is unclear. I would agree with continue digoxin. We could potentially increase the dose. We can measure a level tomorrow morning and decide on a change in dosing if necessary. Also, her blood pressures appear to be somewhat better today. We may have an opportunity to start beta-blockade soon. In the absence of an immediate contraindication, I will consider starting systemic anticoagulation with Xarelto or Eliquis. Subjective This more the patient complained of mild hip discomfort. The nausea that she experienced this afternoon appears to have resolved. She denies any symptoms of breathing difficulty. She has not been aware of any palpitations. Review of Systems Review of Systems: Per HPI Physical Exam Physical Exam: She is alert and oriented x3. Mood affect appear normal. She answered all questions appropriately. HEENT: Sclerae are anicteric. Extraocular movements were intact. Neuro: Cranial nerves intact Lungs: Lungs are clear to auscultation bilaterally. There are no rales wheezes or rhonchi. She has normal respiratory effort without use of accessory muscles. There is normal pulmonary excursion. Cardiac: The rhythm was irregular. S1 and S2 were normal. There are no murmurs on examination. The PMI was not markedly displaced on palpation. Extremities: Patient has bilateral radial pulses that are equal in intensity. There is no evidence cyanosis or clubbing. Lower extremities have significant skin changes with weeping and fell discharge. Results & Data Vital Signs (Past 12 Hours) Vital Signs Temp Pulse Pulse Resp BP Pulse Ox 11/12/19 07:31 36.7 C 72 18 124/72 96 11/12/19 07:00 98 H 11/12/19 04:00 37 C 68 20 100/62 93 11/11/19 22:36 36.6 C 97 H 19 108/50 L 91 Laboratory Results Abnormal Lab Results 11/12/19 11/12/19 06:33 06:33 WBC 10.65 RBC 4.44 Hgb 13.2 Hct 42.4 MCV 95.5 MCH 29.7 MCHC 31.1 L RDW Std Deviation 53.8 H RDW Coeff of [place] 15.6 H Plt Count 261 MPV 8.6 Immature Gran % (Auto) 0.3 Neut % (Auto) 74.9 Lymph % (Auto) 13.4 [place] % (Auto) 9.7 Eos % (Auto) 1.6 Baso % (Auto) 0.1 Immature Gran # (Auto) 0.03 H Neut # (Auto) 7.98 H Lymph # (Auto) 1.43 [place] # (Auto) 1.03 H Eos # (Auto) 0.17 Baso # (Auto) 0.01 Sodium 133 L Potassium 6.0 H D Chloride 100 Carbon Dioxide 32 Anion Gap 0 L BUN 41 H Creatinine 1.13 Est Cr Clr Drug Dosing 52.7 Est GFR ( Amer) 56.6 Est GFR (Non-Af Amer) 48.9 BUN/Creatinine Ratio 36.1 H Glucose 106 H Calcium 8.6 PG Care Time/CCT Total # of Minutes Spent Total Time Spent with Patient: Total time spent is greater than 50% in coordination of care (as documented) at patient's floor/unit and/or counseling patient: Coding Level of Care Code 88087 Subseq Hosp Care Lvl 3 Diagnoses Tachycardia R00.0 Cardiomyopathy I42.9 Atrial fibrillation I48.91
[2019-11-12] MEDS: HEPARIN SOD 5,000 UNIT/0.5 ML VIAL SQ SCH ×2 (09:41→20:27)
[2019-11-12] MEDS: cephALEXin 500 MG CAP PO SCH ×2 (09:42→17:18)
[2019-11-12] MEDS: ACETAMINOPHEN 500 MG TAB PO SCH ×3 (09:42→20:25)
[2019-11-12] MEDS: ONDANSETRON INJ 2 MG/ML 2 ML VIAL IV PRN ×2 (10:21→17:17)
--- NOTE | 2019-11-12 10:41 | Hospitalist Progress Note ---
Date of Service November 12, 2019 Assessment & Plan (1) Goals of care, counseling/discussion: Mrs. Liane Arreguin is a wonderful 69yo woman with a history of severe biventricular heart failure, HTN, HLD, venous insufficiency, and chronically infected leg wounds who is here following a fall that led to a left hip fracture Closed displaced fracture of left femoral neck: -Seen by orthopedic surgery, they do not want to operate at this time until her leg wounds have resolved -Patient very high risk for any sort of procedure due to the tenuous status of her heart as well as increased infection risk from her leg infection -Pressures have been soft and have dropped further with opioid medications, therefore will continue Tylenol, ibuprofen -Patient's pain has been well controlled -Orthosurgery "may require future Girdlestone procedure or nonoperative treatm ent and bed to chair nonweightbearing left leg and palliative care" -PT looking for ortho recommendations for rehab at this early stage of fracture without plans of surgical correction Cardiomyopathy: Patient has known cardiomyopathy, last echo in February 2019 shows EF 25 to 30%, global hypokinesis, mild LVH, severely dilated right ventricle with reduced systolic function, severe biatrial dilation, moderate aortic valve sclerosis and mild pulmonary hypertension. -Does appear to be in sinus tachycardia at this time. She has been resistant to Lopressor treatment for this. -Certainly adds to the picture of someone who is very high risk for any major surgeries. Cardiology consulted agree that patient is very high risk but also that there is no great alternative and that if hip not repaired to the point of being ambulatory she would also likely have a very poor outcome. A fib RVR: Due to soft pressures treating with digoxin Rates slowed over the course of the day yesterday, but back in RVR this AM Will discuss on rounds, considering increasing Digoxin maintenance dose vs adding BB--pressures appear to be improving Will discuss starting anticoagulation now that the patient will not be undergoing procedure on left hip Hyperkalemia, mild moderate - In the setting of Digoxin loading - Repeat EKG this AM - Repeat BMP this afternoon Infestation by bed bug: Contact Precautions. Wounds, multiple open, lower extremity: Wound care consulted Patient's legs with pungent smell, purulent discharge though improved today Culture growing MSSA Transitioned from Daptomycin to Keflex Acute combined systolic and diastolic congestive heart failure: Patient has signs of volume overload got hypoxic after 250 ml fluid bolus Will need to balance this precarious heart situation very carefully Attempted to start the lowest dose entresto with holding parameters for blood pressure to try reduce afterload. Patient did not tolerate due to bp d/c'd Cardiology recommending possible low dose of carvedilol when pressures tolerate but for now we will stand pat. If pressures and rate continue to be improved in AM we can start carvedilol Visual impairment: No acute issues. Venous stasis dermatitis of both lower extremities: Appears to have longstanding venous stasis dermatitis of both lower extremities with history of cellulitis and sepsis from these as recently as February 2019. consulted wound care provider, progress already being made, necrotic tissue being removed Keflex QID Home Safety: Patient admitted in February 2019 for sepsis likely secondary from chronic lower extremity cellulitis. She was seen by psychiatry at that time and evaluated, they did find her thought process to be circumstantial and at times difficult to redirect, however she denied auditory or visual hallucinations and at that time and there was not sufficient criteria to suggest a formal thought disorder. No clear indication to begin any psychiatric medications. There was also concern for possible neglect given that she is by report taken care of by her daughters and discussion of Office of Aging becoming involved? there did not appear to be neglect but rather a refusal by patient to participate with going to doctors appointments and wishing to be left alone by her children who she thinks is stealing from her. Case management consulted to aid in these issues as above. Appreciate recommendations. FEN/GI: Heart healthy diet sodium restriction DVT ppx: heparin q12 CODE STATUS: FULL DISPO: Patient will remain inpatient on med/surg floor until she is able to be discharged to a SNF facility, patient will be nonambulatory and will not be able to take care of herself at home. Supervising Physician Co-Signing Physician Notes I personally examined the patient and verified all song points of history and exam, discussed case, and agree with decision making with Dr Brandt. notes some degree of hip pain today. no other complaints otherwise. Vitals noted, in general she is awake and alert pleasant no distress. Vision is very poor. HEENT normocephalic atraumatic mucous membranes are moist. Breathing is unlabored no accessory muscle use. other than vision, no focal neuro deficits. good mentation, good spirits - normal mood and affect. Hip fracturegiven the patient's underlying cardiomyopathy she is high risk for surgical repair, but she is also extremely high risk for terrible outcome with conservative care. after formal ortho consult and multiple discussions - does not appear to be safe operative candidate for many reasons include perioperative heart risk and post op infection risk. plan will be for SNF w rehab as best she can tolerate. outpt osteoporosis w/u, start vitamin D Venous stasis dermatitis with cellulitic ulcersimproving - and cultures showing MSSA - continue w cephalexin, local wound care. follow. Severe combined systolic and diastolic and right-sided CHFvery delicate and difficult fluid management. pressures have improved some affording more margin of error in possibly being able to treat CHF and control afib. afib - rates too high - possibly even leading to some of the diastolic chf above - but BP too low to tolerate much of any management. improving some on digoxin but rates still frequently too high. trial of low dose metoprolol tartrate (can transition to succinate if does well). eventually transition to anticoagulation for stroke proph - but with risk not so high as to warrant bridging, and hip fx significant risk for bleed (and BP too low to have much margin of error hemodynamically) - hold off on full dose anticoagulation for now. DVT proph dosing significantly less risk for bleeding and at least will help some in this regard. DVT proph - heparin SQ Subjective Doing well this morning. Does complain of some left hip discomfort. Review of Systems Review of Systems: All systems reviewed & are unremarkable except as noted in HPI & below Physical Exam Physical Exam: Constitutional: + thin and + cachectic; no altered mental status and no behavioral limitations Eyes: PERRL, conjunctivae normal, anicteric sclerae ENMT: external ear and nose normal, oropharynx normal Respiratory: normal respiratory effort, lungs clear to auscultation Auscultation: + rales, no rhonchi and no wheezes Cardiovascular: irregularly irregular rhythm, tachycardic Heart Sounds: normal S1 and normal S2; Gastrointestinal (Abdomen): normal bowel sounds, soft, nontender, no hepatosplenomegaly Skin: Diffuse bilateral lower leg rash with open wounds looks to be improving, foul smell is much improved Results & Data Vital Signs (Past 12 Hours) Vital Signs Temp Pulse Pulse Resp BP Pulse Ox 11/12/19 07:31 36.7 C 72 18 124/72 96 11/12/19 07:00 98 H 01/24/20 04:00 37 C 68 20 100/62 93 Resident Activity Tracking Resident Involvement: Resident Care Provided Care Provided: Adult Hospital Medicine
[2019-11-12] MEDS: AMMONIUM LACTATE 12% LOTION 225 GM BTL EXT SCH ×2 (12:52→20:23)
[2019-11-12] MEDS ORDERED: METOPROLOL TARTRATE 25 MG TAB PO ONE (14:30)
[2019-11-12 16:10] LABS: BUN Creatinine Ratio 35.6 (10-20); Calcium 8.4 mg/dl (8.5-10.1); Creatinine Clr Calc Pharmacy 50.9 ml/min; Est GFR (African American) 54.3; Est GFR (Non-African American) 46.8
[2019-11-12] MEDS: DIGOXIN 0.125 MG TAB PO SCH (17:18)
[2019-11-12] MEDS: POLYETHYLENE (MIRALAX) 17 GM PACK PO SCH ×3 (18:17→20:23)
[2019-11-12] MEDS ORDERED: FUROSEMIDE 20 MG in SYRINGE 0 ML IV ONE (19:00)
[2019-11-12] MEDS: FAMOTIDINE 20 MG TAB PO SCH (19:08)
[2019-11-12] MEDS: DOCUSATE SODIUM/SENNA 50/8.6MG TAB PO SCH (20:24)
[2019-11-12] MEDS ORDERED: METOPROLOL TARTRATE 25 MG TAB PO SCH (21:00)
--- NOTE | 2019-11-13 06:16 | Electrocardiogram Report ---
Test Reason : Blood Pressure : / mmHG Vent. Rate : 103 BPM Atrial Rate : 000 BPM P-R Int : 000 ms QRS Dur : 092 ms QT Int : 310 ms P-R-T Axes : 000 -28 133 degrees QTc Int : 406 ms Atrial fibrillation with rapid ventricular response Minimal voltage criteria for LVH, may be normal variant T wave abnormality, consider lateral ischemia Abnormal ECG When compared with ECG of 11-NOV-2019 11:50, QRS axis Shifted left Confirmed by Christian Scott ([id number]) on 11/13/2019 6:16:29 AM Referred By: REFERRED SELF Confirmed By:Christian Scott
[2019-11-13] MEDS: ACETAMINOPHEN 500 MG TAB PO SCH ×3 (08:17→20:49)
[2019-11-13] MEDS: HEPARIN SOD 5,000 UNIT/0.5 ML VIAL SQ SCH ×2 (08:17→20:49)
[2019-11-13] MEDS: FAMOTIDINE 20 MG TAB PO SCH (08:17)
[2019-11-13] MEDS: AMMONIUM LACTATE 12% LOTION 225 GM BTL EXT SCH ×2 (08:18→20:48)
[2019-11-13] MEDS: cephALEXin 500 MG CAP PO SCH ×2 (08:18→18:10)
[2019-11-13] MEDS ORDERED: METOPROLOL TARTRATE 25 MG TAB PO SCH (09:00)
[2019-11-13 09:30] LABS: Basophils # (auto) 0.02 K/uL (0-0.2); Basophils % (auto) 0.2 %; Eosinophils # (auto) 0.22 K/uL (0-0.5); Eosinophils % (auto) 2.4 %; Hematocrit (blood only) 40.6 % (37-47); Hemoglobin 12.5 g/dL (12.0-16.0); Immature Granulocytes # (auto) 0.04 K/uL (0.00-0.02); Immature Granulocytes % (auto) 0.4 %; Lymphocytes # (auto) 1.35 K/uL (1.2-3.4); Mean Corpuscular Hemoglobin 29.4 pg (25-34); Mean Corpuscular Hgb Conc 30.8 g/dL (32-36); Mean Corpuscular Volume 95.5 fL (80-100); Mean Platelet Volume 8.4 fL (7.4-10.4); Monocytes # (auto) 0.83 K/uL (0.11-0.59); Monocytes % (auto) 9.2 %; Neutrophils # (auto) 6.53 K/uL (1.4-6.5); Neutrophils % (auto) 72.8 %; Platelet Count 271 K/uL (130-400); RDW Coefficient of Variation 15.5 % (11.5-14.5); RDW Standard Deviation 53.9 fL (36.4-46.3); Red Blood Count 4.25 M/uL (4.2-5.4); White Blood Count 8.99 K/uL (4.8-10.8)
[2019-11-13 10:03] LABS: BUN Creatinine Ratio 33.7 (10-20); Calcium 8.7 mg/dl (8.5-10.1); Creatinine Clr Calc Pharmacy 52.7 ml/min; Est GFR (African American) 56.6; Est GFR (Non-African American) 48.9; Potassium 5.6 mmol/L (3.5-5.1)
--- NOTE | 2019-11-13 13:00 | Hospitalist Progress Note ---
Date of Service November 13, 2019 Assessment & Plan (1) Goals of care, counseling/discussion: Liane Arreguin is a 69yo woman, PMH severe biventricular heart failure, HTN, HLD, venous insufficiency, and chronically infected leg wounds who is here following a fall which resulted in a left hip fracture Closed displaced fracture of left femoral neck: -Seen by orthopedic surgery, they do not want to operate at this time until her leg wounds have resolved -Also, pt very high risk for procedures 2/2 tenuous status of her heart as well as increased infection risk -Pressures have been soft and dropped further with opioid medications, therefore will continue Tylenol, ibuprofen -Patient's pain has been well controlled -Per ortho: "may require future Girdlestone procedure or nonoperative treatment and bed to chair nonweightbearing left leg and palliative care" -PT looking for ortho recommendations for rehab at this early stage of fracture without plans of surgical correction Cardiomyopathy: -Last echo in February 2019 shows EF 25-30%, global hypokinesis, mild LVH, severely dilated right ventricle with reduced systolic function, severe biatrial dilation, moderate aortic valve sclerosis and mild pulmonary hypertension. -Does appear to be in sinus tachycardia at this time. She has been very resistant to Lopressor treatment for this. Repeatedly states there is "nothing wrong with my heart." -Certainly adds to the picture of someone who is very high risk for any major surgeries. Cardiology consulted, agree that patient is very high risk but also that there is no great alternative and that if hip not repaired to the point of being ambulatory she would also likely have a very poor outcome. A fib RVR: -Due to soft pressures, treating with digoxin (Pt ok with this as it is a natural medication) -Rates slowed over the course of the day yesterday, but back in RVR this AM -Attempted to start scheduled metoprolol tartrate 12.5 bid, but patient refusing. -Will check digoxin level in AM -Will discuss starting anticoagulation now that the patient will not be undergoing procedure on left hip; not urgent issue, would like to see some further healing of the hip prior to initiating. Hyperkalemia, mild moderate - In the setting of Digoxin loading - No EKG changes - Repeat BMP shows slight improvement 6--> 5.6 this AM. Continue miralax Infestation by bed bug: Contact Precautions lifted as of 11/12/19. Wounds, multiple open, lower extremity: Wound care consulted Patient's legs with pungent smell, purulent discharge though improving daily Culture growing MSSA Transitioned from Daptomycin to Keflex (initiated 11/10/19). Acute combined systolic and diastolic congestive heart failure: -Patient has signs/symptoms of volume overload with hypoxia after 250 ml fluid bolus -Will need to balance this precarious heart situation very carefully -Attempted to start the lowest dose entresto with holding parameters for blood pressure to try reduce afterload. Patient did not tolerate due to hypotension -Cardiology recommending possible low dose of carvedilol when pressures tolerate but for now we will stand pat. BP seems to be holding, however patient frequently refusing metoprolol. -If pressures and rate continue to be improved, consider carvedilol if patient amenable. Visual impairment: No acute issues. Venous stasis dermatitis of both lower extremities: -Longstanding venous stasis dermatitis of bilat lower extremities with hx of cellulitis, sepsis from these as recently as February 2019. -Consulted wound care provider, progress already being made, necrotic tissue being removed -Keflex QID (Started 11/10/19) Home Safety: Patient admitted in February 2019 for sepsis likely secondary from chronic lower extremity cellulitis. She was seen by psychiatry at that time and evaluated, they did find her thought process to be circumstantial and at times difficult to redirect, however she denied auditory or visual hallucinations and at that time and there was not sufficient criteria to suggest a formal thought disorder. No clear indication to begin any psychiatric medications. There was also concern for possible neglect given that she is by report taken care of by her daughters and discussion of [employer]ging becoming involved? there did not appear to be neglect but rather a refusal by patient to participate with going to doctors appointments and wishing to be left alone by her children who she thinks is stealing from her. Case management consulted to aid in these issues as above. Appreciate recommendations. FEN/GI: Heart healthy diet sodium restriction DVT ppx: heparin q12 CODE STATUS: FULL DISPO: Patient will remain inpatient on med/surg floor until she is able to be discharged to a SNF facility (possibly [facility], Mon), patient will be nonambulatory and will not be able to take care of herself at home. Supervising Physician Co-Signing Physician Notes I personally examined the patient and verified all song points of history and exam, discussed case, and agree with decision making with Dr Walton. pain doing better no trouble breathing does not feel heart racing. discussed overall planning. Vitals noted, in general she is awake and alert pleasant no distress. Vision is very poor. HEENT normocephalic atraumatic mucous membranes are moist. Breathing is unlabored no accessory muscle use. other than vision, no focal neuro deficits. good mentation, good spirits - normal mood and affect. LE edema stable, ulcers dressed, no exudate, no tracking erythema. Hip fracturegiven the patient's underlying cardiomyopathy she is high risk for surgical repair, but she is also extremely high risk for terrible outcome with conservative care. after formal ortho consult and multiple discussions - does not appear to be safe operative candidate for many reasons include perioperative heart risk and post op infection risk. plan will be for SNF w rehab as best she can tolerate. outpt osteoporosis w/u, treat w vitamin D. Pt/OT eval and treat. Venous stasis dermatitis with cellulitic ulcersimproving - and cultures showing MSSA - continue w cephalexin, local wound care. follow. looking stable now - and much improved from before Severe combined systolic and diastolic and right-sided CHFvery delicate and difficult fluid management. fortunately has been stable. won't allow meds. afib - won't allow meds besides dig for rate control - overall improving. check level tomorrow. eventually transition to anticoagulation for stroke proph - but with risk not so high as to warrant bridging, and hip fx significant risk for bleed (and BP too low to have much margin of error hemodynamically) - hold off on full dose anticoagulation for now. DVT proph dosing significantly less risk for bleeding and at least will help some in this regard. hyperkalemia - no EKG changes. improving. likely was from dig load but with extremely limited options for afib continue dig and follow closely. continue miralax. DVT proph - heparin SQ Subjective Patient feeling well today. Eager to go home, but understanding that she is not physically able to move about her house and willing to go to rehab. She notes her legs are feeling better. Still adamant that there is "nothing wrong with [her] heart" and is refusing her metoprolol medication, despite her HR running in the 140s-160s. Accepting digoxin as it is a natural chemical. Review of Systems Review of Systems: All systems reviewed & are unremarkable except as noted in HPI & below Constitutional: no fever, no chills and no fatigue Respiratory: no cough and no dyspnea Cardiovascular: no chest pain, no radiating jaw, neck or arm pain, no orthopnea and no lightheadedness Gastrointestinal: no abdominal pain, no nausea and no vomiting Musculoskeletal: + joint pain (improving); no stiffness Integumentary: + non-healing lesions and + changing lesions venous insufficiency with chronic but improving lower leg wounds. Neurologic: + falls Physical Exam Constitutional: + thin and + cachectic; no altered mental status and no behavioral limitations Eyes: PERRL, conjunctivae normal, anicteric sclerae ENMT: external ear and nose normal, oropharynx normal Respiratory: normal respiratory effort, lungs clear to auscultation Auscultation: no crackles, no rhonchi and no wheezes Cardiovascular: Rate/Rhythm: regular rate and regular rhythm Heart Sounds: normal S1 and normal S2; no click, no murmur and no cardiac rub Gastrointestinal (Abdomen): normal bowel sounds, soft, nontender, no hepatosplenomegaly Results & Data Vital Signs (Past 12 Hours) Vital Signs Temp Pulse Pulse Resp BP Pulse Ox 11/13/19 11:19 98.1 F 70 16 99/56 L 92 11/13/19 07:53 117 H 11/13/19 07:36 97.9 F 92 H 16 118/61 96 11/13/19 04:00 98.2 F 70 18 115/69 92 Laboratory Results 11/13/19 11/13/19 11/12/19 Range/Units 09:10 09:10 15:29 WBC 8.99 (4.8-10.8) K/uL RBC 4.25 (4.2-5.4) M/uL Hgb 12.5 (12.0-16.0) g/dL Hct 40.6 (37-47) % MCV 95.5 (80-100) fL MCH 29.4 (25-34) pg MCHC 30.8 L (32-36) g/dL RDW Std Deviation 53.9 H (36.4-46.3) fL RDW Coeff of Malia 15.5 H (11.5-14.5) % Plt Count 271 (130-400) K/uL MPV 8.4 (7.4-10.4) fL Immature Gran % (Auto) 0.4 % Neut % (Auto) 72.8 % Lymph % (Auto) 15.0 % Harding % (Auto) 9.2 % Eos % (Auto) 2.4 % Baso % (Auto) 0.2 % Immature Gran # (Auto) 0.04 H (0.00-0.02) K/uL Neut # (Auto) 6.53 H (1.4-6.5) K/uL Lymph # (Auto) 1.35 (1.2-3.4) K/uL Harding # (Auto) 0.83 H (0.11-0.59) K/uL Eos # (Auto) 0.22 (0-0.5) K/uL Baso # (Auto) 0.02 (0-0.2) K/uL Sodium 134 L 132 L (136-145) mmol/L Potassium 5.6 H 6.0 H (3.5-5.1) mmol/L Chloride 100 100 (98-107) mmol/L Carbon Dioxide 29 28 (21-32) mmol/L Anion Gap 4.0 3.0 (3-11) BUN 38 H 42 H (7-18) mg/dl Creatinine 1.13 1.17 (0.6-1.2) mg/dl Est Cr Clr Drug Dosing 52.7 50.9 ml/min Est GFR ( Amer) 56.6 54.3 Est GFR (Non-Af Amer) 48.9 46.8 BUN/Creatinine Ratio 33.7 H 35.6 H (10-20) Glucose 121 H 99 (70-99) mg/dl Calcium 8.7 8.4 L (8.5-10.1) mg/dl Medications Administered Current Inpatient Medications Acetaminophen (Tylenol) 1,000 mg PO TID [facility] Stop: 12/08/19 20:59 Last Admin: 11/13/19 08:17 Dose: 1,000 mg Documented by: Bisacodyl (Dulcolax) 10 mg OK DAILY PRN PRN Reason: Constipation Stop: 12/07/19 07:52 Last Admin: 11/12/19 13:01 Dose: 10 mg Documented by: Cephalexin HCl (Keflex) 500 mg PO BIDM [facility]; Protocol Stop: 11/20/19 16:59 Last Admin: 11/13/19 08:18 Dose: 500 mg Documented by: Digoxin (Lanoxin) 0.125 mg PO DAILY@1600 [facility] Stop: 12/12/19 15:59 Last Admin: 11/12/19 17:18 Dose: 0.125 mg Documented by: Famotidine (Pepcid) 20 mg PO [facility] Stop: 12/12/19 18:59 Last Admin: 11/13/19 08:17 Dose: 20 mg Documented by: Heparin Sodium (Porcine) (Heparin Sodium (Porcine)) 5,000 units SQ Q12 [facility] Stop: 12/07/19 20:59 Last Admin: 11/13/19 08:17 Dose: 5,000 units Documented by: Ibuprofen (Motrin) 600 mg PO TID PRN PRN Reason: Pain Stop: 12/11/19 10:40 Last Admin: 11/12/19 23:30 Dose: 600 mg Documented by: Lactic Acid (Amlactin) 1 gm EXT BID [facility] Stop: 12/08/19 20:59 Last Admin: 11/13/19 08:18 Dose: 1 gm Documented by: Magnesium Hydroxide (Milk Of Magnesia) 30 ml PO DAILY PRN PRN Reason: Constipation Stop: 12/07/19 07:52 Last Admin: 11/10/19 07:15 Dose: 30 ml Documented by: Metoprolol Tartrate (Lopressor) 12.5 mg PO [facility] Stop: 12/13/19 08:59 Last Admin: 11/13/19 10:18 Dose: 12.5 mg Documented by: Morphine Sulfate (Morphine Sulfate) 1 mg IV Q2H PRN PRN Reason: MODERATE Pain (Scale 4,5,6) Stop: 11/21/19 07:52 Naloxone HCl (Narcan) 0.1 mg IV UD PRN PRN Reason: Opiate Overdose Stop: 12/07/19 07:52 Ondansetron HCl (Zofran) 4 mg IV Q6H PRN PRN Reason: Nausea And Vomiting Stop: 12/07/19 07:52 Last Admin: 11/12/19 17:17 Dose: 4 mg Documented by: Senna/Docusate Sodium (Senokot S) 2 tab PO [facility] Stop: 12/07/19 20:59 Last Admin: 11/12/19 20:24 Dose: 2 tab Documented by: Tramadol HCl (Ultram) 50 mg PO Q4H PRN PRN Reason: Pain Stop: 12/07/19 10:07 Last Admin: 11/07/19 13:42 Dose: 50 mg Documented by: Resident Activity Tracking Resident Involvement: Resident Care Provided Care Provided: Adult Hospital Medicine
[2019-11-13] MEDS: DIGOXIN 0.125 MG TAB PO SCH (15:10)
--- NOTE | 2019-11-13 18:03 | Billing Data ---
Date of Service November 13, 2019 Coding Level of Care Code 77355 Subseq Hosp Care Lvl 3
[2019-11-13] MEDS: IBUPROFEN 600 MG TAB PO PRN (18:13)
--- NOTE | 2019-11-13 19:16 | Cardiology Progress Note ---
Date of Service November 13, 2019 Assessment & Plan (1) Tachycardia: Now in atrial fibrillation. Her rates continue to be high. (2) Cardiomyopathy: Biventricular failure. No significant change. Ideally should be on beta- blockade but she has refused. Her renal function is normal we could entertain the possibility of starting Pj inhibition at some point. We will need to be very cautious given her recent hyperkalemia. (3) Atrial fibrillation: Her rates continue to be high. She seems to be taking digoxin and we could check a level possibly tomorrow morning. I would agree with initiation of beta-blockade a but she has refused. I discussed this topic with her and she was not interested any medicine that would mess with her heart. She also did not consent to systemic anticoagulation. I am not sure will have many more options for treating her atrial fibrillation. Subjective This evening the patient seems to be somewhat frustrated regarding her overall prognosis. He seems somewhat depressed her mood was worse than usual. She did not report any symptoms of breathing difficulty. She was not aware of any palpitations. She continues to have some residual discomfort at the site of her hip fracture. Review of Systems Review of Systems: Per HPI Physical Exam Physical Exam: She is alert and oriented x3. Mood affect appear normal. She answered all questions appropriately. HEENT: Sclerae are anicteric. Extraocular movements were intact. Neuro: Cranial nerves intact Lungs: Lungs are clear to auscultation bilaterally. There are no rales wheezes or rhonchi. She has normal respiratory effort without use of accessory muscles. There is normal pulmonary excursion. Cardiac: The rhythm was irregular. S1 and S2 were normal. There are no mur murs on examination. The PMI was not markedly displaced on palpation. Extremities: Patient has bilateral radial pulses that are equal in intensity. There is no evidence cyanosis or clubbing. Lower extremities have significant skin changes with weeping and fell discharge. Results & Data Vital Signs (Past 12 Hours) Vital Signs Temp Pulse Pulse Resp BP BP Pulse Ox 11/13/19 19:00 36.7 C 88 20 102/55 L 90 11/13/19 16:00 98 H 11/13/19 15:15 36.8 C 73 16 118/73 94 11/13/19 15:10 106 H 11/13/19 11:19 36.7 C 70 16 99/56 L 92 11/13/19 07:53 117 H 11/13/19 07:36 36.6 C 92 H 16 118/61 96 Laboratory Results Abnormal Lab Results 11/13/19 11/13/19 09:10 09:10 WBC 8.99 RBC 4.25 Hgb 12.5 Hct 40.6 MCV 95.5 MCH 29.4 MCHC 30.8 L RDW Std Deviation 53.9 H RDW Coeff of Malia 15.5 H Plt Count 271 MPV 8.4 Immature Gran % (Auto) 0.4 Neut % (Auto) 72.8 Lymph % (Auto) 15.0 [place] % (Auto) 9.2 Eos % (Auto) 2.4 Baso % (Auto) 0.2 Immature Gran # (Auto) 0.04 H Neut # (Auto) 6.53 H Lymph # (Auto) 1.35 [place] # (Auto) 0.83 H Eos # (Auto) 0.22 Baso # (Auto) 0.02 Sodium 134 L Potassium 5.6 H Chloride 100 Carbon Dioxide 29 Anion Gap 4.0 BUN 38 H Creatinine 1.13 Est Cr Clr Drug Dosing 52.7 Est GFR ( Amer) 56.6 Est GFR (Non-Af Amer) 48.9 BUN/Creatinine Ratio 33.7 H Glucose 121 H Calcium 8.7 PG Care Time/CCT Total # of Minutes Spent Total Time Spent with Patient: Total time spent is greater than 50% in coordination of care (as documented) at patient's floor/unit and/or counseling patient: Coding Level of Care Code 74617 Subseq Hosp Care Lvl 3 Diagnoses Tachycardia R00.0 Cardiomyopathy I42.9 Atrial fibrillation I48.91
[2019-11-13] MEDS: DOCUSATE SODIUM/SENNA 50/8.6MG TAB PO SCH (20:49)
[2019-11-14 07:21] LABS: BUN Creatinine Ratio 33.6 (10-20); Calcium 8.8 mg/dl (8.5-10.1); Creatinine Clr Calc Pharmacy 54.1 ml/min; Est GFR (African American) 58.5; Est GFR (Non-African American) 50.5; Potassium 5.9 mmol/L (3.5-5.1)
[2019-11-14] MEDS: AMMONIUM LACTATE 12% LOTION 225 GM BTL EXT SCH ×2 (07:44→20:06)
[2019-11-14] MEDS: ACETAMINOPHEN 500 MG TAB PO SCH ×3 (07:45→20:11)
[2019-11-14] MEDS: cephALEXin 500 MG CAP PO SCH ×2 (07:45→16:58)
[2019-11-14] MEDS: POLYETHYLENE (MIRALAX) 17 GM PACK PO SCH (07:45)
[2019-11-14] MEDS: FAMOTIDINE 20 MG TAB PO SCH (07:46)
[2019-11-14] MEDS: HEPARIN SOD 5,000 UNIT/0.5 ML VIAL SQ SCH ×2 (07:53→20:12)
--- NOTE | 2019-11-14 12:03 | Hospitalist Progress Note ---
Date of Service November 14, 2019 Assessment & Plan (1) Goals of care, counseling/discussion: Liane Arreguin is a 69yo woman, PMH severe biventricular heart failure, HTN, HLD, venous insufficiency, and chronically infected leg wounds who presented following a fall which resulted in a left hip fracture Closed displaced fracture of left femoral neck: -Seen by orthopedic surgery, they do not want to operate at this time until her leg wounds have resolved -Also, pt very high risk for procedures 2/2 tenuous status of her heart as well as increased infection risk -Pressures have been soft and dropped further with opioid medications, therefore will continue Tylenol, ibuprofen. One time dosing of opiates prn. -Patient's pain has been well controlled overall -Per ortho: "may require future Girdlestone procedure or nonoperative treatment and bed to chair nonweightbearing left leg and palliative care" -PT looking for ortho recommendations for rehab at this early stage of fracture without plans of surgical correction A fib RVR: -Due to soft pressures, treating with digoxin (Pt ok with this as it is a natural medication) -Rates slowed over the course of the day yesterday, but back in RVR periodically -Attempted to start scheduled metoprolol tartrate 12.5 bid, but patient refusing. -Digoxin level 1.2 on 11/14. -In light of continued hyperkalemia, will hold digoxin currently and monitor K levels. If afib returns, and K+ improves, will need to consider other options (amio, etc). If K doesn't resolve, will resume digoxin and need to further investigate cause of hyperkalemia. -Will discuss starting anticoagulation now that the patient will not be undergoing procedure on left hip; not urgent issue, would like to see some further healing of the hip prior to initiating. Hyperkalemia, mild moderate - In the setting of Digoxin loading - No EKG changes - Repeat BMP shows minimal improvement 6--> 5.6-->5.9 this AM. Continue miralax, scheduled. - See plan for digoxin under Afib/RVR above Cardiomyopathy: -Last echo in February 2019 shows EF 25-30%, global hypokinesis, mild LVH, severely dilated right ventricle with reduced systolic function, severe biatrial dilation, moderate aortic valve sclerosis and mild pulmonary hypertension. -Does appear to be in sinus tachycardia at this time. She has been very resistant to Lopressor treatment for this. Repeatedly states there is "nothing wrong with my heart." -Certainly adds to the picture of someone who is very high risk for any major surgeries. Cardiology consulted, agree that patient is very high risk but also that there is no great alternative and that if hip not repaired to the point of being ambulatory she would also likely have a very poor outcome. Infestation by bed bug: Contact Precautions lifted as of 11/12/19. Wounds, multiple open, lower extremity: Wound care consulted Patient's legs with pungent smell, purulent discharge though improving daily Culture growing MSSA Transitioned from Daptomycin to Keflex (initiated 11/10/19). Acute combined systolic and diastolic congestive heart failure: -Patient has signs/symptoms of volume overload with hypoxia after 250 ml fluid bolus -Will need to balance this precarious heart situation very carefully -Attempted to start the lowest dose entresto with holding parameters for blood pressure to try reduce afterload. Patient did not tolerate due to hypotension -Cardiology recommending possible low dose of carvedilol when pressures tolerate but for now we will continue with current plan. BP seems to be holding, however patient frequently refusing metoprolol. -If pressures and rate continue to be improved, consider carvedilol if patient amenable. Visual impairment: No acute issues. Venous stasis dermatitis of both lower extremities: -Longstanding venous stasis dermatitis of bilat lower extremities with hx of cellulitis, sepsis from these as recently as February 2019. -Consulted wound care provider, progress already being made, necrotic tissue being removed -Keflex QID (Started 11/10/19) Home Safety: Patient admitted in February 2019 for sepsis likely secondary from chronic lower extremity cellulitis. She was seen by psychiatry at that time and evaluated, they did find her thought process to be circumstantial and at times difficult to redirect, however she denied auditory or visual hallucinations and at that time and there was not sufficient criteria to suggest a formal thought disorder. No clear indication to begin any psychiatric medications. There was also concern for possible neglect given that she is by report taken care of by her daughters and discussion of [employer] becoming involved? there did not appear to be neglect but rather a refusal by patient to participate with going to doctors appointments and wishing to be left alone by her children who she thinks is stealing from her. Case management consulted to aid in these issues as above. Appreciate recommendations. FEN/GI: Heart healthy diet sodium restriction DVT ppx: heparin q12 CODE STATUS: FULL DISPO: Patient will remain inpatient on med/surg floor until she is able to be discharged to a SNF facility ([facility]), patient will be nonambulatory and will not be able to take care of herself at home. Supervising Physician Co-Signing Physician Notes I personally examined the patient and verified all song points of history and exam, discussed case, and agree with decision making with Dr Walton. more pain this afternoon - ill defined leg pain but seems to be more skin related than hip/groin. Vitals noted, in general she is awake and alert pleasant but unlike normally when she is smiling and verbose, she alternates between this and grimacing/shaking head in pain. Vision is very poor. HEENT normocephalic atraumatic mucous membranes are moist. Breathing is unlabored no accessory muscle use. other than vision, no focal neuro deficits. good mentation, good spirits - normal mood and affect. LE edema stable, ulcers dressed, no exudate, no tracking erythema. Hip fracturegiven the patient's underlying cardiomyopathy she is high risk for surgical repair, but she is also extremely high risk for terrible outcome with conservative care. after formal ortho consult and multiple discussions - does not appear to be safe operative candidate for many reasons include perioperative heart risk and post op infection risk. outpt osteoporosis w/u, treat w vitamin D. Pt/OT eval and treat. for now goal is SNF/slow rehab. her goal is to try to get independant again if at all possible Venous stasis dermatitis with cellulitic ulcersimproving - and cultures showing MSSA - continue w cephalexin, continue local wound care. follow. looking stable now - and much improved from before - pain worse today but without new/worse infectious signs. follow Severe combined systolic and diastolic and right-sided CHFvery delicate and difficult fluid management. fortunately has been stable. won't allow meds, although afterload reduction hasn't really been tolerated due to blood pressure during this stay anyway. afib - won't allow meds besides dig for rate control - level 1.2 today -- but concern is that dig might be culprit for hyperkalemia since K didn't rise till after dig given - for now hold and follow K, follow rates. rate control/K and BP could become a serious issue as far as balance if dig is culprit in K given that her pressures don't tolerate much and she refuses many meds as well. eventually transition to anticoagulation for stroke proph if she allows- but with risk not so high as to warrant bridging, and hip fx significant risk for bleed (and BP too low to have much margin of error hemodynamically) - hold off on full dose anticoagulation for now. DVT proph dosing significantly less risk for bleeding and at least will help some in this regard. hyperkalemia - no EKG changes. was improving but now trending up again. ddx on cause seems to be digoxin related vs ??absorption of assumed blood loss around hip fracture? -- either way concerning that she's been difficult to get to t juaquin trend down. reassuring that her EKG has not shown hyperkalemic changes. no imminent need for insulin/glucose, calcium gluconate, etc. literature suggesting that any bowel regimen is as effective as kayexalate at managing K and kaexalate carries unnecessary risk of bowel necrosis - therefore using miralax daily (nursing did not large BM today, so that should hopefully help w current K management) - continue to follow DVT proph - heparin SQ Subjective Patient experiencing some L sided hip and leg pain today. Remains in good spirits, however. No other questions or concerns. Review of Systems Review of Systems: All systems reviewed & are unremarkable except as noted in HPI & below Constitutional: + weakness; no fever Respiratory: + dyspnea (chronic); no cough Cardiovascular: no chest pain and no radiating jaw, neck or arm pain Gastrointestinal: no abdominal pain, no nausea and no vomiting Musculoskeletal: + joint pain; no stiffness Integumentary: + non-healing lesions and + changing lesions venous insufficiency with chronic but improving lower leg wounds. Neurologic: + falls Physical Exam Constitutional: + thin; no altered mental status and no behavioral limitations Eyes: PERRL, conjunctivae normal, anicteric sclerae ENMT: external ear and nose normal, oropharynx normal Respiratory: normal respiratory effort, lungs clear to auscultation Auscultation: no crackles, no rhonchi and no wheezes Cardiovascular: Rate/Rhythm: regular rate and + irregularly irregular Heart Sounds: normal S1 and normal S2; no click, no murmur and no cardiac rub Gastrointestinal (Abdomen): normal bowel sounds, soft, nontender, no hepatosplenomegaly Musculoskeletal: Extremities: + leg length discrepancy Skin: + ulcer (evidence of chronic venous insufficiency with open leg wounds; improving), + crusts and + lichenification; + abnormal skin elasticity Neurologic: awake Speech / Cognition: normal speech Cranial Nerves: able to rotate head bilaterally and able to elevate shoulders bilaterally Psychiatric: A+Ox3, euthymic affect Results & Data Vital Signs (Past 12 Hours) Vital Signs Temp Pulse Pulse Resp BP Pulse Ox 11/14/19 11:35 97.5 F L 111 H 16 100/60 94 11/14/19 07:36 98.2 F 59 L 16 131/71 94 11/14/19 07:06 90 11/14/19 04:22 98.6 F 72 20 123/74 95 Laboratory Results 11/14/19 11/14/19 Range/Units 06:41 06:41 Sodium 137 (136-145) mmol/L Potassium 5.9 H (3.5-5.1) mmol/L Chloride 102 (98-107) mmol/L Carbon Dioxide 34 H (21-32) mmol/L Anion Gap 1.0 L (3-11) BUN 37 H (7-18) mg/dl Creatinine 1.10 (0.6-1.2) mg/dl Est Cr Clr Drug Dosing 54.1 ml/min Est GFR ( Amer) 58.5 Est GFR (Non-Af Amer) 50.5 BUN/Creatinine Ratio 33.6 H (10-20) Glucose 91 (70-99) mg/dl Calcium 8.8 (8.5-10.1) mg/dl Digoxin 1.2 (0.8-2.0) ng/ml Medications Administered Current Inpatient Medications Acetaminophen (Tylenol) 1,000 mg PO TID [facility] Stop: 12/08/19 20:59 Last Admin: 11/14/19 13:19 Dose: 1,000 mg Documented by: Bisacodyl (Dulcolax) 10 mg [place] DAILY PRN PRN Reason: Constipation Stop: 12/07/19 07:52 Last Admin: 11/12/19 13:01 Dose: 10 mg Documented by: Cephalexin HCl (Keflex) 500 mg PO BIDM [facility]; Protocol Stop: 11/20/19 16:59 Last Admin: 11/14/19 07:45 Dose: 500 mg Documented by: Famotidine (Pepcid) 20 mg PO [facility] Stop: 12/12/19 18:59 Last Admin: 11/14/19 07:46 Dose: 20 mg Documented by: Heparin Sodium (Porcine) (Heparin Sodium (Porcine)) 5,000 units SQ Q12 [facility] Stop: 12/07/19 20:59 Last Admin: 11/14/19 07:53 Dose: Not Given Documented by: Ibuprofen (Motrin) 600 mg PO TID PRN PRN Reason: Pain Stop: 12/11/19 10:40 Last Admin: 11/13/19 18:13 Dose: 600 mg Documented by: Lactic Acid (Amlactin) 1 gm EXT BID [facility] Stop: 12/08/19 20:59 Last Admin: 11/14/19 07:44 Dose: 1 gm Documented by: Magnesium Hydroxide (Milk Of Magnesia) 30 ml PO DAILY PRN PRN Reason: Constipation Stop: 12/07/19 07:52 Last Admin: 11/10/19 07:15 Dose: 30 ml Documented by: Metoprolol Tartrate (Lopressor) 12.5 mg PO [facility] Stop: 12/13/19 08:59 Last Admin: 11/13/19 10:18 Dose: 12.5 mg Documented by: Morphine Sulfate (Morphine Sulfate) 1 mg IV Q2H PRN PRN Reason: MODERATE Pain (Scale 4,5,6) Stop: 11/21/19 07:52 Naloxone HCl (Narcan) 0.1 mg IV UD PRN PRN Reason: Opiate Overdose Stop: 12/07/19 07:52 Ondansetron HCl (Zofran) 4 mg IV Q6H PRN PRN Reason: Nausea And Vomiting Stop: 12/07/19 07:52 Last Admin: 11/12/19 17:17 Dose: 4 mg Documented by: Polyethylene Glycol (Miralax Powder Packet) 17 gm PO DAILY [facility] Stop: 12/14/19 08:59 Last Admin: 11/14/19 07:45 Dose: 17 gm Documented by: Senna/Docusate Sodium (Senokot S) 2 tab PO [facility] Stop: 12/07/19 20:59 Last Admin: 11/13/19 20:49 Dose: 2 tab Documented by: Tramadol HCl (Ultram) 50 mg PO Q4H PRN PRN Reason: Pain Stop: 12/07/19 10:07 Last Admin: 11/07/19 13:42 Dose: 50 mg Documented by: Resident Activity Tracking Resident Involvement: Resident Care Provided Care Provided: Adult Hospital Medicine
[2019-11-14] MEDS ORDERED: MoRPHine SULFATE 2 MG/ML CARP IV STA (16:13)
--- NOTE | 2019-11-14 18:04 | Billing Data ---
Date of Service November 14, 2019 Coding Level of Care Code 80493 Subseq Hosp Care Lvl 3
[2019-11-14] MEDS: IBUPROFEN 600 MG TAB PO PRN (20:07)
[2019-11-14] MEDS: DOCUSATE SODIUM/SENNA 50/8.6MG TAB PO SCH ×2 (20:11→20:24)
[2019-11-15] MEDS: IBUPROFEN 600 MG TAB PO PRN ×3 (05:43→21:03)
[2019-11-15 07:43] LABS: BUN Creatinine Ratio 38.1 (10-20); Calcium 9.2 mg/dl (8.5-10.1); Creatinine Clr Calc Pharmacy 61.4 ml/min; Est GFR (African American) 68.1; Est GFR (Non-African American) 58.8; Potassium 5.2 mmol/L (3.5-5.1)
[2019-11-15] MEDS: CHOLECALCIFEROL 1,000 UNITS 25 MCG TAB PO SCH (09:00)
[2019-11-15] MEDS: FAMOTIDINE 20 MG TAB PO SCH (09:00)
[2019-11-15] MEDS: cephALEXin 500 MG CAP PO SCH ×2 (09:00→17:14)
[2019-11-15] MEDS: HEPARIN SOD 5,000 UNIT/0.5 ML VIAL SQ SCH ×2 (09:01→21:02)
[2019-11-15] MEDS: POLYETHYLENE (MIRALAX) 17 GM PACK PO SCH (09:01)
[2019-11-15] MEDS: ACETAMINOPHEN 500 MG TAB PO SCH ×3 (09:01→21:03)
[2019-11-15] MEDS: AMMONIUM LACTATE 12% LOTION 225 GM BTL EXT SCH ×2 (09:01→21:01)
--- NOTE | 2019-11-15 15:56 | Hospitalist Progress Note ---
Date of Service November 15, 2019 Assessment & Plan (1) Goals of care, counseling/discussion: Liane Arreguin is a 69yo woman, PMH severe biventricular heart failure, HTN, HLD, venous insufficiency, and chronically infected leg wounds who presented following a fall which resulted in a left hip fracture. Closed displaced fracture of left femoral neck: -Seen by orthopedic surgery, they do not want to operate at this time until her leg wounds have resolved -Also, pt very high risk for procedures 2/2 tenuous status of her heart as well as increased infection risk -Pressures have been soft and dropped further with opioid medications, therefore will continue Tylenol (1000mg TID ANTOLIN), ibuprofen. One time dosing of opiates prn. -Patient's pain has been well controlled overall -Per ortho: "may require future Girdlestone procedure or nonoperative treatment and bed to chair nonweightbearing left leg and palliative care" -PT looking for ortho recommendations for rehab at this early stage of fracture without plans of surgical correction A fib RVR: -Due to soft pressures, treating with digoxin (Pt ok with this as it is a natural medication). Held today 2/2 hyperK -Rates slowed over the course of the day yesterday, but back in RVR periodically -Attempted to start scheduled metoprolol tartrate 12.5 bid, but patient refusing. -Digoxin level 0.9 -In light of continued hyperkalemia, will hold digoxin currently and monitor K levels. If afib returns, and K+ improves, will need to consider other options (amio, etc). If K doesn't resolve, will resume digoxin and need to further investigate cause of hyperkalemia. -Will discuss starting anticoagulation now that the patient will not be undergoing procedure on left hip; not urgent issue, would like to see some further healing of the hip prior to initiating Hyperkalemia, mild moderate - In the setting of Digoxin loading - No EKG changes - Repeat BMP shows minimal improvement 6--> 5.6-->5.2 this AM. Continue miralax, scheduled. - See plan for digoxin under Afib/RVR above Cardiomyopathy: -Last echo in February 2019 shows EF 25-30%, global hypokinesis, mild LVH, severely dilated right ventricle with reduced systolic function, severe biatrial dilation, moderate aortic valve sclerosis and mild pulmonary hypertension. -Does appear to be in sinus tachycardia at this time. She has been very resistant to Lopressor treatment for this. Repeatedly states there is "nothing wrong with my heart." -Certainly adds to the picture of someone who is very high risk for any major surgeries. Cardiology consulted, agree that patient is very high risk but also that there is no great alternative and that if hip not repaired to the point of being ambulatory she would also likely have a very poor outcome. Infestation by bed bug: Contact Precautions lifted as of 11/12/19. Wounds, multiple open, lower extremity: Wound care consulted Patient's legs with pungent smell, purulent discharge though improving daily Culture growing MSSA Transitioned from Daptomycin to Keflex (initiated 11/10/19). Acute combined systolic and diastolic congestive heart failure: -Patient has signs/symptoms of volume overload with hypoxia after 250 ml fluid bolus -Will need to balance this precarious heart situation very carefully -Attempted to start the lowest dose entresto with holding parameters for blood pressure to try reduce afterload. Patient did not tolerate due to hypotension -Cardiology recommending possible low dose of carvedilol when pressures tolerate but for now we will continue with current plan. BP seems to be holding, however patient frequently refusing metoprolol. -If pressures and rate continue to be improved, consider carvedilol if patient amenable. Visual impairment: No acute issues. Venous stasis dermatitis of both lower extremities: -Longstanding venous stasis dermatitis of bilat lower extremities with hx of cellulitis, sepsis from these as recently as February 2019. -Consulted wound care provider, progress already being made, necrotic tissue being removed -Keflex QID (Started 11/10/19) Home Safety: Patient admitted in February 2019 for sepsis likely secondary from chronic lower extremity cellulitis. She was seen by psychiatry at that time and evaluated, they did find her thought process to be circumstantial and at times difficult to redirect, however she denied auditory or visual hallucinations and at that time and there was not sufficient criteria to suggest a formal thought disorder. No clear indication to begin any psychiatric medications. There was also concern for possible neglect given that she is by report taken care of by her daughters and discussion of Office of Aging becoming involved? there did not appear to be neglect but rather a refusal by patient to participate with going to doctors appointments and wishing to be left alone by her children who she thinks is stealing from her. Case management consulted to aid in these issues as above. Appreciate recommendations. FEN/GI: Heart healthy diet sodium restriction DVT ppx: heparin q12 CODE STATUS: FULL DISPO: Med Tele. Patient will remain inpatient on med/surg floor until she is able to be discharged to a SNF facility (accepted at [facility]-pending medical stabilization), patient will be nonambulatory and will not be able to take care of herself at home. (2) Closed fracture of left hip: 69yo C female with history of HTN, HLP, PAF presenting after a fall at home. Patient is visually impaired. She reports walking through her kitchen this evening. Her oven was open and turned on to assist with heating the home. She tripped over the oven and thinks she did a somersault, landing on her left hip. She was unable to get up unassisted, unable to bear weight. Found to have fracture of left hip on x-ray. Patient complaining of severe discomfort in the left hip. . Closed fracture of left hip: -Seen by orthopedic surgery, plan tentatively for the OR tomorrow. -Cardiac preop evaluation ongoing. Patient is clearly very high risk. -Pressures are too soft for opioid medications, therefore will continue Tylenol, Toradol and tramadol PRN. -Ongoing bed rest. -Zofran PRN -N.p.o. after midnight Cardiomyopathy: Patient has known cardiomyopathy, last echo in February 2019 shows EF 25 to 30%, global hypokinesis, mild LVH, severely dilated right ventricle with reduced systolic function, severe biatrial dilation, moderate aortic valve sclerosis and mild pulmonary hypertension. -Unsure if ischemic, no records of cardiac catheterization available to me. -Does appear to be in sinus tachycardia at this time. She has been resistant to Lopressor treatment for this. -Certainly adds to the picture of someone who is very high risk for any major surgeries. Cardiology consulted to aid in preop evaluation and medical optimization, appreciate recommendations, see associated notes. Tachyarrhythmia: Appears to be sinus tachycardia when slowed down to 110. She has a history of this. Infestation by bed bug: Precautions. Wounds, multiple open, lower extremity: New superficial laceration after mechanical fall at home. Wound care nurse consulted. Acute combined systolic and diastolic congestive heart failure: As above. To be very judicious with any fluid hydration. Visual impairment: No acute issues. Venous stasis dermatitis of both lower extremities: Appears to have longstanding venous stasis dermatitis of both lower extremities with history of cellulitis and sepsis from these as recently as February 2019. Consider dermatology consult consulted wound care provider She is also completely incontinent of urine which adds to the difficulty. Discharge planning issues: Patient admitted in February 2019 for sepsis likely secondary from chronic lower extremity cellulitis. She was seen by psychiatry at that time and evaluated, they did find her thought process to be circumstantial and at times difficult to redirect, however she denied auditory or visual hallucinations and at that time and there was not sufficient criteria to suggest a formal thought disorder. No clear indication to begin any psychiatric medications. There was also concern for possible neglect given that she is by report taken care of by her daughters and discussion of Office of Aging becoming involved? Case management consulted to aid in these issues as above. Appreciate recommendations. FEN/GI: Heart healthy diet, n.p.o. after midnight DVT ppx: heparin q12 CODE STATUS: FULL DISPO: med/tele Supervising Physician Co-Signing Physician Notes I personally examined the patient and verified all song points of history and exam, discussed case, and agree with decision making with Dr. Lim. Upon exam this morning, the patient does not seem to be in any pain. We had a long discussion regarding the patient's medical diagnosis and the medications we would recommend to better control her heart rate. She was initially receptive to a trial of digoxin because it was "a natural medication." However when the digoxin was started, patient became hyperkalemic the following day and there was question if the digoxin was the cause of the hyperkalemia. It has since been stopped. We discussed a trial of beta-blockers for her heart rate of though the patient declined this medication as it " blocks the life forces." Previously discussed was the recommendation for anticoagulation for atrial fibrillation and she also declined this as well (see cardiology note). The patient told me that I should " Google" like forces in order to better treat her atrial fibrillation. Will trend potassium; discussed with pharmacy possibility that digoxin was the cause of her hyperkalemia. If she continues to decline other medications, only option may be a retrial of digoxin with close monitoring of her potassium. Ultimately the plan is to discharge her to [facility] for conservative management of her hip fracture; at this point with atrial fibrillation and rates greater than 100 -in light of her decreased EF/cardiopathy -she is not medically stable. If she continues to refuse interventions, I am not sure if we will be able to control her heart rate by other means. This would raise the possibility of taking a more palliative approach may be considering hospice care, although this would bring up the concept of competence. She had previously been seen by psychiatry and was found to be competent; it is not clear to me at this point if she understands that refusing recommendations will likely lead to a deterioration of condition and ultimately . She is insistent that we control her heart rate by nonpharmacological means -addressing her "life energy and forces" -and I explained to her that I am not sure what this means or how to do that. We will discuss with case management We will again discuss with psychiatry Subjective 69 yo F found in bed this AM in NAD. No overnight events. Hard to re-direct conversation. Patient experiencing some L sided hip and leg pain today. Remains in good spirits, however. No other questions or concerns. Review of Systems Review of Systems: All systems reviewed & are unremarkable except as noted in HPI & below Physical Exam Constitutional: WD/WN, vitals as above + thin Eyes: PERRL, conjunctivae normal, anicteric sclerae ENMT: external ear and nose normal, oropharynx normal Respiratory: normal respiratory effort, lungs clear to auscultation Cardiovascular: Rate/Rhythm: regular rhythm (irregularly irregular) and + tachycardic Gastrointestinal (Abdomen): normal bowel sounds, soft, nontender, no hepatosplenomegaly Musculoskeletal: Extremities: + leg foreshortened Skin: no rashes, warm and dry + wound (open leg wound/ulcer LE) Psychiatric: A+Ox3, euthymic affect Results & Data Vital Signs (Past 12 Hours) Vital Signs Temp Pulse Pulse Pulse Resp BP BP 11/15/19 15:41 36.4 C L 101 H 18 102/63 11/15/19 10:59 36.8 C 56 L 18 91/46 L 11/15/19 08:00 11/15/19 07:43 105 H 11/15/19 07:14 36.7 C 87 18 107/68 11/15/19 04:46 37 C 85 18 117/72 Pulse Ox Pulse Ox 11/15/19 15:41 90 11/15/19 10:59 92 01/27/20 08:00 96 11/15/19 07:43 11/15/19 07:14 96 11/15/19 04:46 95 Laboratory Results Laboratory Results - last 24 hr 11/15/19 11/15/19 06:46 06:46 Sodium 136 Potassium 5.2 H Chloride 101 Carbon Dioxide 33 H Anion Gap 2.0 L BUN 37 H Creatinine 0.97 Est Cr Clr Drug Dosing 61.4 Est GFR ( Amer) 68.1 Est GFR (Non-Af Amer) 58.8 BUN/Creatinine Ratio 38.1 H Glucose 88 Calcium 9.2 Digoxin 0.9 Medications Administered Current Inpatient Medications Acetaminophen (Tylenol) 1,000 mg PO TID [facility] Stop: 12/08/19 20:59 Last Admin: 11/15/19 09:01 Dose: 1,000 mg Documented by: Bisacodyl (Dulcolax) 10 mg WI DAILY PRN PRN Reason: Constipation Stop: 12/07/19 07:52 Last Admin: 11/12/19 13:01 Dose: 10 mg Documented by: Cephalexin HCl (Keflex) 500 mg PO BIDM [facility]; Protocol Stop: 11/20/19 16:59 Last Admin: 11/15/19 09:00 Dose: 500 mg Documented by: Famotidine (Pepcid) 20 mg PO QAM [facility] Stop: 12/12/19 18:59 Last Admin: 11/15/19 09:00 Dose: 20 mg Documented by: Heparin Sodium (Porcine) (Heparin Sodium (Porcine)) 5,000 units SQ Q12 [facility] Stop: 12/07/19 20:59 Last Admin: 11/15/19 09:01 Dose: Not Given Documented by: Ibuprofen (Motrin) 600 mg PO TID PRN PRN Reason: Pain Stop: 12/11/19 10:40 Last Admin: 11/15/19 12:52 Dose: 600 mg Documented by: Lactic Acid (Amlactin) 1 gm EXT BID [facility] Stop: 12/08/19 20:59 Last Admin: 11/15/19 09:01 Dose: 1 gm Documented by: Magnesium Hydroxide (Milk Of Magnesia) 30 ml PO DAILY PRN PRN Reason: Constipation Stop: 12/07/19 07:52 Last Admin: 11/10/19 07:15 Dose: 30 ml Documented by: Metoprolol Tartrate (Lopressor) 12.5 mg PO QAM [facility] Stop: 12/13/19 08:59 Last Admin: 11/13/19 10:18 Dose: 12.5 mg Documented by: Morphine Sulfate (Morphine Sulfate) 1 mg IV Q2H PRN PRN Reason: MODERATE Pain (Scale 4,5,6) Stop: 11/21/19 07:52 Naloxone HCl (Narcan) 0.1 mg IV UD PRN PRN Reason: Opiate Overdose Stop: 12/07/19 07:52 Ondansetron HCl (Zofran) 4 mg IV Q6H PRN PRN Reason: Nausea And Vomiting Stop: 12/07/19 07:52 Last Admin: 11/12/19 17:17 Dose: 4 mg Documented by: Polyethylene Glycol (Miralax Powder Packet) 17 gm PO DAILY [facility] Stop: 12/14/19 08:59 Last Admin: 11/15/19 09:01 Dose: Not Given Documented by: Senna/Docusate Sodium (Senokot S) 2 tab PO HS [facility] Stop: 12/07/19 20:59 Last Admin: 11/14/19 20:24 Dose: Not Given Documented by: Tramadol HCl (Ultram) 50 mg PO Q4H PRN PRN Reason: Pain Stop: 12/07/19 10:07 Last Admin: 11/07/19 13:42 Dose: 50 mg Documented by: Vitamin D (Vitamin D3) 2,000 units PO QAM [facility] Stop: 12/15/19 08:59 Last Admin: 11/15/19 09:00 Dose: 2,000 units Documented by: Resident Activity Tracking Resident Involvement: Resident Care Provided Care Provided: Adult Hospital Medicine (1) Closed fracture of left hip Encounter type: initial encounter Qualified Code(s): S72.002A - Fracture of unspecified part of neck of left femur, initial encounter for closed fracture
--- NOTE | 2019-11-15 19:53 | Electrocardiogram Report ---
Test Reason : Blood Pressure : / mmHG Vent. Rate : 116 BPM Atrial Rate : 133 BPM P-R Int : 000 ms QRS Dur : 090 ms QT Int : 316 ms P-R-T Axes : 000 -18 136 degrees QTc Int : 439 ms Atrial fibrillation with rapid ventricular response T wave abnormality, consider lateral ischemia Abnormal ECG When compared with ECG of 12-NOV-2019 09:45, No significant change was found Confirmed by Maycol Conklin ([id number]) on 11/15/2019 7:53:21 PM Referred By: REFERRED SELF Confirmed By:Albaro Conklin
[2019-11-15] MEDS: DOCUSATE SODIUM/SENNA 50/8.6MG TAB PO SCH (21:03)
[2019-11-16] MEDS: IBUPROFEN 600 MG TAB PO PRN ×2 (02:21→20:47)
[2019-11-16 05:56] LABS: Basophils # (auto) 0.02 K/uL (0-0.2); Basophils % (auto) 0.2 %; Eosinophils # (auto) 0.25 K/uL (0-0.5); Eosinophils % (auto) 2.7 %; Hematocrit (blood only) 39.4 % (37-47); Hemoglobin 11.9 g/dL (12.0-16.0); Immature Granulocytes # (auto) 0.04 K/uL (0.00-0.02); Immature Granulocytes % (auto) 0.4 %; Lymphocytes # (auto) 1.35 K/uL (1.2-3.4); Lymphocytes % (auto) 14.3 %; Mean Corpuscular Hemoglobin 29.1 pg (25-34); Mean Corpuscular Hgb Conc 30.2 g/dL (32-36); Mean Corpuscular Volume 96.3 fL (80-100); Mean Platelet Volume 8.4 fL (7.4-10.4); Monocytes % (auto) 7.4 %; Neutrophils # (auto) 7.07 K/uL (1.4-6.5); Platelet Count 289 K/uL (130-400); RDW Coefficient of Variation 15.8 % (11.5-14.5); RDW Standard Deviation 55.3 fL (36.4-46.3); Red Blood Count 4.09 M/uL (4.2-5.4); White Blood Count 9.43 K/uL (4.8-10.8)
[2019-11-16] MEDS ORDERED: KETOROLAC TROMETHAMINE 15 MG/ML VIAL IV ONE (06:05)
[2019-11-16 06:23] LABS: BUN Creatinine Ratio 36.4 (10-20); Calcium 9.2 mg/dl (8.5-10.1); Creatinine Clr Calc Pharmacy 55.7 ml/min; Est GFR (African American) 60.5; Est GFR (Non-African American) 52.2; Potassium 5.4 mmol/L (3.5-5.1)
[2019-11-16] MEDS: ACETAMINOPHEN 500 MG TAB PO SCH ×3 (08:04→20:50)
[2019-11-16] MEDS: POLYETHYLENE (MIRALAX) 17 GM PACK PO SCH (08:04)
[2019-11-16] MEDS: FAMOTIDINE 20 MG TAB PO SCH (08:06)
[2019-11-16] MEDS: HEPARIN SOD 5,000 UNIT/0.5 ML VIAL SQ SCH ×2 (08:06→20:48)
[2019-11-16] MEDS: cephALEXin 500 MG CAP PO SCH ×2 (08:07→16:54)
[2019-11-16] MEDS: CHOLECALCIFEROL 1,000 UNITS 25 MCG TAB PO SCH (08:07)
[2019-11-16] MEDS: AMMONIUM LACTATE 12% LOTION 225 GM BTL EXT SCH ×2 (08:07→20:50)
[2019-11-16] MEDS ORDERED: FUROSEMIDE 20 MG TAB PO ONE (09:04)
--- NOTE | 2019-11-16 11:57 | Hospitalist Progress Note ---
Date of Service November 16, 2019 Assessment & Plan (1) Goals of care, counseling/discussion: Liane Arreguin is a 69yo woman, PMH severe biventricular heart failure, HTN, HLD, venous insufficiency, and chronically infected leg wounds who presented following a fall which resulted in a left hip fracture. Closed displaced fracture of left femoral neck: -Seen by orthopedic surgery, they do not want to operate at this time until her leg wounds have resolved -Also, pt very high risk for procedures 2/2 tenuous status of her heart as well as increased infection risk -Pressures have been soft and dropped further with opioid medications, therefore will continue Tylenol (1000mg TID ANTOLIN), ibuprofen. One time dosing of opiates prn. -Patient's pain has been well controlled overall -Per ortho: "may require future Girdlestone procedure or nonoperative treatment and bed to chair nonweightbearing left leg and palliative care" -PT looking for ortho recommendations for rehab at this early stage of fracture without plans of surgical correction A fib RVR: -Due to soft pressures, treating with digoxin (Pt ok with this as it is a natural medication). Held today 2/2 hyperK -Rates slowed over the course of the day yesterday, but back in RVR periodically -Attempted to start scheduled metoprolol tartrate 12.5 bid, but patient refusing. -Extensive discussion today with 3 providers alongside pt about heart status and medical management moving forward. It would appear that pt is very hard to re- direct and goes off on multiple tangents. But in sum, still refusing any 'non- natural' medications including any and all BB's -Digoxin level 0.7 -In light of continued hyperkalemia, will hold digoxin currently and monitor K levels. If afib returns, and K+ improves, will need to consider other options (amio, etc). If K doesn't resolve, will resume digoxin and need to further investigate cause of hyperkalemia. -Will discuss starting anticoagulation now that the patient will not be undergoing procedure on left hip; not urgent issue, would like to see some further healing of the hip prior to initiating Hyperkalemia, mild moderate - In the setting of Digoxin loading. Unsure if dig is culprit - No EKG changes - Repeat BMP shows worsening 5.4 (5.2 prior) this AM. Continue miralax, scheduled. -Lasix 20 mg PO today - See plan for digoxin under Afib/RVR above Cardiomyopathy: -Last echo in February 2019 shows EF 25-30%, global hypokinesis, mild LVH, severely dilated right ventricle with reduced systolic function, severe biatrial dilation, moderate aortic valve sclerosis and mild pulmonary hypertension. -Does appear to be in sinus tachycardia at this time. She has been very resistant to Lopressor treatment for this. Repeatedly states there is "nothing wrong with my heart." -Certainly adds to the picture of someone who is very high risk for any major surgeries. Cardiology consulted, agree that patient is very high risk but also that there is no great alternative and that if hip not repaired to the point of being ambulatory she would also likely have a very poor outcome. Wounds, multiple open, lower extremity: -Wound care consulted -Patient's legs with pungent smell, purulent discharge though improving daily -Culture growing MSSA -Transitioned from Daptomycin to Keflex (initiated 11/10/19). Acute combined systolic and diastolic congestive heart failure: -Patient has signs/symptoms of volume overload with hypoxia after 250 ml fluid bolus -Will need to balance this precarious heart situation very carefully -Attempted to start the lowest dose entresto with holding parameters for blood pressure to try reduce afterload. Patient did not tolerate due to hypotension -Cardiology recommending possible low dose of carvedilol when pressures tolerate but for now we will continue with current plan. BP seems to be holding, however patient frequently refusing metoprolol. -If pressures and rate continue to be improved, consider carvedilol if patient amenable. Venous stasis dermatitis of both lower extremities: -Longstanding venous stasis dermatitis of bilat lower extremities with hx of cellulitis, sepsis from these as recently as February 2019. -Consulted wound care provider, progress already being made, necrotic tissue being removed -Keflex QID (Started 11/10/19) Home Safety: Patient admitted in February 2019 for sepsis likely secondary from chronic lower extremity cellulitis. She was seen by psychiatry at that time and evaluated, they did find her thought process to be circumstantial and at times difficult to redirect, however she denied auditory or visual hallucinations and at that time and there was not sufficient criteria to suggest a formal thought disorder. No clear indication to begin any psychiatric medications. There was also concern for possible neglect given that she is by report taken care of by her daughters and discussion of [employer] becoming involved? there did not appear to be neglect but rather a refusal by patient to participate with going to doctors appointments and wishing to be left alone by her children who she thinks is stealing from her. Case management consulted to aid in these issues as above. Appreciate recommendations. FEN/GI: Heart healthy diet sodium restriction DVT ppx: heparin q12 CODE STATUS: FULL DISPO: Med Tele. Patient will remain inpatient on med/surg floor until she is able to be discharged to a SNF facility (accepted at [facility]-pending medical stabilization), patient will be nonambulatory and will not be able to take care of herself at home. Supervising Physician Co-Signing Physician Notes I saw the patient with the resident physician confirmed song portions of the history and physical examination. Agree with the impression and plan as noted above. The patient continues to refuse medications which she does not deem as "all natural." As stated previously, she was willing to trial digoxin, although this was stopped for suspicion it was causing hyperkalemia. We again discussed her cardiac diagnosis including cardiomyopathy and atrial fibrillation with rapid ventricular response; she insists that she had none of these diagnoses until she came to the hospital and received medications. I tried to emphasize that getting better rate control would most likely keep her out of congestive failure; in other words, poor rate control will likely lead to a worsening of her cardiac disease and ultimately . She is insistent that we work on finding a "natural" remedy. At this point, since the patient is willing to take digoxin, I think this is the only approach we have. She has been on Lasix intermittently before, and this likely was helping her potassium. Will restart Lasix today; if potassium is improved tomorrow will retrial digoxin. Is not clear to me that the digoxin was the cause of the hyperkalemia; it could have been a coincidence. Hopefully we can get enough rate control to at least keep her under 100. Also discussed again with the patient that since we cannot optimize her medically, she is unable to move forward with operative repair of her hip fracture. The case was discussed in interdisciplinary rounds this afternoon as well. Subjective 69 yo F found in bed this AM in NAD. No overnight events. Hard to re-direct conversation. Patient experiencing some L sided hip and leg pain today. Extensive dicussion today with 3 physicians and pt about condition of heart and medical management moving forward. No other questions or concerns. Review of Systems Review of Systems: All systems reviewed & are unremarkable except as noted in HPI & below Physical Exam Constitutional: WD/WN, vitals as above + thin Eyes: PERRL, conjunctivae normal, anicteric sclerae ENMT: external ear and nose normal, oropharynx normal Respiratory: normal respiratory effort, lungs clear to auscultation Cardiovascular: Rate/Rhythm: regular rhythm (irregularly irregular) and + tachycardic Gastrointestinal (Abdomen): normal bowel sounds, soft, nontender, no hepatosplenomegaly Musculoskeletal: Extremities: + leg foreshortened Skin: no rashes, warm and dry + wound (open leg wound/ulcer LE) Psychiatric: A+Ox3, euthymic affect Results & Data Vital Signs (Past 12 Hours) Vital Signs Temp Pulse Pulse Resp BP BP Pulse Ox 11/16/19 11:12 36.4 C L 119 H 20 127/88 95 11/16/19 07:50 36.8 C 100 H 20 115/85 97 11/16/19 07:28 100 H 11/16/19 06:40 103/66 11/16/19 03:39 36.8 C 83 18 108/65 96 Laboratory Results Laboratory Results - last 24 hr 11/16/19 11/16/19 11/16/19 05:24 05:24 05:24 WBC 9.43 RBC 4.09 L Hgb 11.9 L Hct 39.4 MCV 96.3 MCH 29.1 MCHC 30.2 L RDW Std Deviation 55.3 H RDW Coeff of Malia 15.8 H Plt Count 289 MPV 8.4 Immature Gran % (Auto) 0.4 Neut % (Auto) 75.0 Lymph % (Auto) 14.3 Gall[place] % (Auto) 7.4 Eos % (Auto) 2.7 Baso % (Auto) 0.2 Immature Gran # (Auto) 0.04 H Neut # (Auto) 7.07 H Lymph # (Auto) 1.35 Gall[place] # (Auto) 0.70 H Eos # (Auto) 0.25 Baso # (Auto) 0.02 Sodium 136 Potassium 5.4 H Chloride 102 Carbon Dioxide 31 Anion Gap 3.0 BUN 39 H Creatinine 1.07 Est Cr Clr Drug Dosing 55.7 Est GFR ( Amer) 60.5 Est GFR (Non-Af Amer) 52.2 BUN/Creatinine Ratio 36.4 H Glucose 86 Calcium 9.2 Digoxin 0.7 L Medications Administered Current Inpatient Medications Acetaminophen (Tylenol) 1,000 mg PO TID [facility] Stop: 12/08/19 20:59 Last Admin: 11/16/19 08:04 Dose: 1,000 mg Documented by: Bisacodyl (Dulcolax) 10 mg ME DAILY PRN PRN Reason: Constipation Stop: 12/07/19 07:52 Last Admin: 11/12/19 13:01 Dose: 10 mg Documented by: Cephalexin HCl (Keflex) 500 mg PO BIDM [facility]; Protocol Stop: 11/20/19 16:59 Last Admin: 11/16/19 08:07 Dose: 500 mg Documented by: Famotidine (Pepcid) 20 mg PO [facility] Stop: 12/12/19 18:59 Last Admin: 11/16/19 08:06 Dose: 20 mg Documented by: Heparin Sodium (Porcine) (Heparin Sodium (Porcine)) 5,000 units SQ Q12 [facility] Stop: 12/07/19 20:59 Last Admin: 11/16/19 08:06 Dose: 5,000 units Documented by: Ibuprofen (Motrin) 600 mg PO TID PRN PRN Reason: Pain Stop: 12/11/19 10:40 Last Admin: 11/16/19 02:21 Dose: 600 mg Documented by: Lactic Acid (Amlactin) 1 gm EXT BID [facility] Stop: 12/08/19 20:59 Last Admin: 11/16/19 08:07 Dose: 1 gm Documented by: Magnesium Hydroxide (Milk Of Magnesia) 30 ml PO DAILY PRN PRN Reason: Constipation Stop: 12/07/19 07:52 Last Admin: 11/10/19 07:15 Dose: 30 ml Documented by: Metoprolol Tartrate (Lopressor) 12.5 mg PO [facility] Stop: 12/13/19 08:59 Last Admin: 11/13/19 10:18 Dose: 12.5 mg Documented by: Morphine Sulfate (Morphine Sulfate) 1 mg IV Q2H PRN PRN Reason: MODERATE Pain (Scale 4,5,6) Stop: 11/21/19 07:52 Naloxone HCl (Narcan) 0.1 mg IV UD PRN PRN Reason: Opiate Overdose Stop: 12/07/19 07:52 Ondansetron HCl (Zofran) 4 mg IV Q6H PRN PRN Reason: Nausea And Vomiting Stop: 12/07/19 07:52 Last Admin: 11/12/19 17:17 Dose: 4 mg Documented by: Polyethylene Glycol (Miralax Powder Packet) 17 gm PO DAILY [facility] Stop: 12/14/19 08:59 Last Admin: 11/16/19 08:04 Dose: 17 gm Documented by: Senna/Docusate Sodium (Senokot S) 2 tab PO HS [facility] Stop: 12/07/19 20:59 Last Admin: 11/15/19 21:03 Dose: Not Given Documented by: Tramadol HCl (Ultram) 50 mg PO Q4H PRN PRN Reason: Pain Stop: 12/07/19 10:07 Last Admin: 11/07/19 13:42 Dose: 50 mg Documented by: Vitamin D (Vitamin D3) 2,000 units PO QAM [facility] Stop: 12/15/19 08:59 Last Admin: 11/16/19 08:07 Dose: 2,000 units Documented by: Resident Activity Tracking Resident Involvement: Resident Care Provided Care Provided: Adult Hospital Medicine
[2019-11-16] MEDS: DOCUSATE SODIUM/SENNA 50/8.6MG TAB PO SCH (20:47)
[2019-11-17] MEDS: KETOROLAC TROMETHAMINE 15 MG/ML VIAL IV PRN (02:55)
[2019-11-17 05:53] LABS: Basophils # (auto) 0.02 K/uL (0-0.2); Basophils % (auto) 0.2 %; Eosinophils # (auto) 0.25 K/uL (0-0.5); Eosinophils % (auto) 2.6 %; Hematocrit (blood only) 37.6 % (37-47); Hemoglobin 11.4 g/dL (12.0-16.0); Immature Granulocytes # (auto) 0.03 K/uL (0.00-0.02); Immature Granulocytes % (auto) 0.3 %; Lymphocytes # (auto) 1.44 K/uL (1.2-3.4); Mean Corpuscular Hemoglobin 29.4 pg (25-34); Mean Corpuscular Hgb Conc 30.3 g/dL (32-36); Mean Corpuscular Volume 96.9 fL (80-100); Mean Platelet Volume 8.2 fL (7.4-10.4); Monocytes % (auto) 6.2 %; Neutrophils # (auto) 7.29 K/uL (1.4-6.5); Neutrophils % (auto) 75.7 %; Platelet Count 305 K/uL (130-400); RDW Coefficient of Variation 15.9 % (11.5-14.5); RDW Standard Deviation 55.4 fL (36.4-46.3); Red Blood Count 3.88 M/uL (4.2-5.4); White Blood Count 9.63 K/uL (4.8-10.8)
[2019-11-17 06:27] LABS: BUN Creatinine Ratio 34.7 (10-20); Calcium 9.1 mg/dl (8.5-10.1); Creatinine Clr Calc Pharmacy 55.7 ml/min; Est GFR (African American) 60.5; Est GFR (Non-African American) 52.2; Potassium 5.2 mmol/L (3.5-5.1)
[2019-11-17] MEDS ORDERED: FUROSEMIDE 20 MG TAB PO SCH (07:30)
[2019-11-17] MEDS: CHOLECALCIFEROL 1,000 UNITS 25 MCG TAB PO SCH (07:38)
[2019-11-17] MEDS: FAMOTIDINE 20 MG TAB PO SCH (07:38)
[2019-11-17] MEDS: HEPARIN SOD 5,000 UNIT/0.5 ML VIAL SQ SCH ×2 (07:39→21:13)
[2019-11-17] MEDS: POLYETHYLENE (MIRALAX) 17 GM PACK PO SCH (07:39)
[2019-11-17] MEDS: cephALEXin 500 MG CAP PO SCH ×2 (07:39→16:30)
[2019-11-17] MEDS: AMMONIUM LACTATE 12% LOTION 225 GM BTL EXT SCH ×2 (07:40→21:12)
[2019-11-17] MEDS: ACETAMINOPHEN 500 MG TAB PO SCH ×3 (08:46→21:12)
--- NOTE | 2019-11-17 14:12 | Billing Data ---
Date of Service November 12 2019 Coding Level of Care Code 99808 Subseq Hosp Care Lvl 3
--- NOTE | 2019-11-17 16:39 | Hospitalist Progress Note ---
Date of Service November 17, 2019 Assessment & Plan (1) Goals of care, counseling/discussion: Liane Arreguin is a 69yo woman, PMH severe biventricular heart failure, HTN, HLD, venous insufficiency, and chronically infected leg wounds who presented following a fall which resulted in a left hip fracture. Closed displaced fracture of left femoral neck: -Seen by orthopedic surgery, they do not want to operate at this time until her leg wounds have resolved -Also, pt very high risk for procedures 2/2 tenuous status of her heart as well as increased infection risk -Pressures have been soft and dropped further with opioid medications, therefore will continue Tylenol (1000mg TID ANTOLIN), ibuprofen. One time dosing of opiates prn. -Patient's pain has been well controlled overall -Per ortho: "may require future Girdlestone procedure or nonoperative treatment and bed to chair nonweightbearing left leg and palliative care" -PT looking for ortho recommendations for rehab at this early stage of fracture without plans of surgical correction A fib RVR: -Due to soft pressures, treating with digoxin (Pt ok with this as it is a natural medication). Held again today 2/2 hyperK, hopefully can restart tomorrow -Rates slowed over the course of the day yesterday, but back in RVR periodically -Attempted to start scheduled metoprolol tartrate 12.5 bid, but patient refusing. -Extensive discussion today with 3 providers alongside pt about heart status and medical management moving forward. It would appear that pt is very hard to re- direct and goes off on multiple tangents. But in sum, still refusing any 'non- natural' medications including any and all BB's -Digoxin level 0.6 -In light of continued hyperkalemia, will hold digoxin currently and monitor K levels. If afib returns, and K+ improves, will need to consider other options (amio, etc). If K doesn't resolve, will resume digoxin and need to further investigate cause of hyperkalemia. -Will discuss starting anticoagulation now that the patient will not be undergoing procedure on left hip; not urgent issue, would like to see some further healing of the hip prior to initiating Hyperkalemia, mild moderate - In the setting of Digoxin loading. Unsure if dig is culprit - No EKG changes - Repeat BMP shows slightly improved 5.2 (5.4 prior) this AM. Continue miralax, scheduled. -Lasix 20 mg PO today. Will change to ANTOLIN dosing - See plan for digoxin under Afib/RVR above Cardiomyopathy: -Last echo in February 2019 shows EF 25-30%, global hypokinesis, mild LVH, severely dilated right ventricle with reduced systolic function, severe biatrial dilation, moderate aortic valve sclerosis and mild pulmonary hypertension. -Does appear to be in sinus tachycardia at this time. She has been very resistant to Lopressor treatment for this. Repeatedly states there is "nothing wrong with my heart." -Certainly adds to the picture of someone who is very high risk for any major surgeries. Cardiology consulted, agree that patient is very high risk but also that there is no great alternative and that if hip not repaired to the point of being ambulatory she would also likely have a very poor outcome. Wounds, multiple open, lower extremity: -Wound care consulted -Patient's legs with pungent smell, purulent discharge though improving daily -Culture growing MSSA -Transitioned from Daptomycin to Keflex (initiated 11/10/19). Acute combined systolic and diastolic congestive heart failure: -Patient has signs/symptoms of volume overload with hypoxia after 250 ml fluid bolus -Will need to balance this precarious heart situation very carefully -Attempted to start the lowest dose entresto with holding parameters for blood pressure to try reduce afterload. Patient did not tolerate due to hypotension -Cardiology recommending possible low dose of carvedilol when pressures tolerate but for now we will continue with current plan. BP seems to be holding, however patient frequently refusing metoprolol. -If pressures and rate continue to be improved, consider carvedilol if patient amenable. Venous stasis dermatitis of both lower extremities: -Longstanding venous stasis dermatitis of bilat lower extremities with hx of cellulitis, sepsis from these as recently as February 2019. -Consulted wound care provider, progress already being made, necrotic tissue being removed -Keflex QID (Started 11/10/19) Home Safety: Patient admitted in February 2019 for sepsis likely secondary from chronic lower extremity cellulitis. She was seen by psychiatry at that time and evaluated, they did find her thought process to be circumstantial and at times difficult to redirect, however she denied auditory or visual hallucinations and at that time and there was not sufficient criteria to suggest a formal thought disorder. No clear indication to begin any psychiatric medications. There was also concern for possible neglect given that she is by report taken care of by her daughters and discussion of Office of Aging becoming involved? there did not appear to be neglect but rather a refusal by patient to participate with going to doctors appointments and wishing to be left alone by her children who she thinks is stealing from her. Case management consulted to aid in these issues as above. Appreciate recommendations. FEN/GI: Heart healthy diet sodium/potassium restriction DVT ppx: heparin q12 CODE STATUS: FULL DISPO: Med Tele. Patient will remain inpatient on med/surg floor until she is able to be discharged to a SNF facility (accepted at [facility]-pending medical stabilization), patient will be nonambulatory and will not be able to take care of herself at home. Supervising Physician Co-Signing Physician Notes I saw the patient with the resident physician and confirmed song portions of the history and physical examination. I agree with the impression and plan as noted above. Upon our visit this afternoon, the patient had two friends from the [facility] area at bedside, and they were present during the conversation in which we updated the patient with regards to her condition, and also what would be our plan to better control her heart rate in the setting of her cardiomyopathy and atrial fibrillation. Unfortunately, she continues to refuse trials of medications to control her heart rate -beta-alis/calcium channel alis; she had consented to digoxin because it was more " natural" but this was stopped when she developed hyperkalemia. As discussed previously, it is not clear if the hyperkalemia was secondary to the digoxin or another cause, but at present would not continued the digoxin. Her heart rates ranged between the mid 90s to 110; she will occasional bursts up to 130, and this is usually with activity (movement in bed) or if she gets upset during a conversation. There are some documented rates in the 70s and 80s, although these are taken from the finger pulse oximeter reading and they are not reliable in the setting of atrial fibrillation. Discussed with the patient today that we are at an impasse with regards to ef forts to control her heart rate. Again tried to explain the importance of better rate control in the setting of her cardiomyopathy and atrial fibrillation -however she does not think she has either of these ailments to begin with. Continue Lasix and monitor potassium Consider retrial of digoxin Consider transfer [facility] for continued care of her leg wounds and conservative management of her hip fracture, accepting the fact that we are unable to control her heart rate given her medication refusals. Subjective 69 yo F found in bed this AM in NAD. No overnight events. Hard to re-direct conversation. Patient experiencing some L sided hip and leg pain today. Extensive dicussion today with 3 physicians and pt about condition of heart and medical management moving forward. Also discussed with 2 friends in room from [place]. No other questions or concerns. Review of Systems Review of Systems: All systems reviewed & are unremarkable except as noted in HPI & below Physical Exam Constitutional: WD/WN, vitals as above + thin Eyes: PERRL, conjunctivae normal, anicteric sclerae ENMT: external ear and nose normal, oropharynx normal Respiratory: normal respiratory effort, lungs clear to auscultation normal respiratory effort; no respiratory distress Cardiovascular: Rate/Rhythm: regular rhythm (irregularly irregular) and + tachycardic Gastrointestinal (Abdomen): normal bowel sounds, soft, nontender, no hepatosplenomegaly Musculoskeletal: Extremities: + leg foreshortened Skin: no rashes, warm and dry + wound (open leg wound/ulcer LE) Psychiatric: A+Ox3, euthymic affect Results & Data Vital Signs (Past 12 Hours) Vital Signs Temp Pulse Pulse Resp BP Pulse Ox 11/17/19 15:56 143 H 11/17/19 15:00 36.7 C 108 H 20 100/63 91 11/17/19 11:10 36.6 C 94 H 18 98/69 L 100 11/17/19 08:00 93 H 11/17/19 07:02 36.6 C 94 H 20 114/72 96 Laboratory Results Laboratory Results - last 24 hr 11/17/19 11/17/19 11/17/19 05:30 05:30 05:30 WBC 9.63 RBC 3.88 L Hgb 11.4 L Hct 37.6 MCV 96.9 MCH 29.4 MCHC 30.3 L RDW Std Deviation 55.4 H RDW Coeff of Malia 15.9 H Plt Count 305 MPV 8.2 Immature Gran % (Auto) 0.3 Neut % (Auto) 75.7 Lymph % (Auto) 15.0 [place] % (Auto) 6.2 Eos % (Auto) 2.6 Baso % (Auto) 0.2 Immature Gran # (Auto) 0.03 H Neut # (Auto) 7.29 H Lymph # (Auto) 1.44 [place] # (Auto) 0.60 H Eos # (Auto) 0.25 Baso # (Auto) 0.02 Sodium 139 Potassium 5.2 H Chloride 103 Carbon Dioxide 32 Anion Gap 3.0 BUN 37 H Creatinine 1.07 Est Cr Clr Drug Dosing 55.7 Est GFR ( Amer) 60.5 Est GFR (Non-Af Amer) 52.2 BUN/Creatinine Ratio 34.7 H Glucose 91 Calcium 9.1 Digoxin 0.6 L Medications Administered Current Inpatient Medications Acetaminophen (Tylenol) 1,000 mg PO TID [facility] Stop: 12/08/19 20:59 Last Admin: 11/17/19 14:27 Dose: 1,000 mg Documented by: Bisacodyl (Dulcolax) 10 mg [place] DAILY PRN PRN Reason: Constipation Stop: 12/07/19 07:52 Last Admin: 11/12/19 13:01 Dose: 10 mg Documented by: Cephalexin HCl (Keflex) 500 mg PO BIDM [facility]; Protocol Stop: 11/20/19 16:59 Last Admin: 11/17/19 16:30 Dose: 500 mg Documented by: Famotidine (Pepcid) 20 mg PO QAM [facility] Stop: 12/12/19 18:59 Last Admin: 11/17/19 07:38 Dose: 20 mg Documented by: Heparin Sodium (Porcine) (Heparin Sodium (Porcine)) 5,000 units SQ Q12 [facility] Stop: 12/07/19 20:59 Last Admin: 11/17/19 07:39 Dose: 5,000 units Documented by: Ibuprofen (Motrin) 600 mg PO TID PRN PRN Reason: Pain Stop: 12/11/19 10:40 Last Admin: 11/16/19 20:47 Dose: 600 mg Documented by: Ketorolac Tromethamine (Toradol) 15 mg IV Q6H PRN PRN Reason: Pain Stop: 11/22/19 00:00 Last Admin: 11/17/19 02:55 Dose: 15 mg Documented by: Lactic Acid (Amlactin) 1 gm EXT BID [facility] Stop: 12/08/19 20:59 Last Admin: 11/17/19 07:40 Dose: 1 gm Documented by: Magnesium Hydroxide (Milk Of Magnesia) 30 ml PO DAILY PRN PRN Reason: Constipation Stop: 12/07/19 07:52 Last Admin: 11/10/19 07:15 Dose: 30 ml Documented by: Metoprolol Tartrate (Lopressor) 12.5 mg PO QAM [facility] Stop: 12/13/19 08:59 Last Admin: 11/13/19 10:18 Dose: 12.5 mg Documented by: Morphine Sulfate (Morphine Sulfate) 1 mg IV Q2H PRN PRN Reason: MODERATE Pain (Scale 4,5,6) Stop: 11/21/19 07:52 Naloxone HCl (Narcan) 0.1 mg IV UD PRN PRN Reason: Opiate Overdose Stop: 12/07/19 07:52 Ondansetron HCl (Zofran) 4 mg IV Q6H PRN PRN Reason: Nausea And Vomiting Stop: 12/07/19 07:52 Last Admin: 11/12/19 17:17 Dose: 4 mg Documented by: Polyethylene Glycol (Miralax Powder Packet) 17 gm PO DAILY [facility] Stop: 12/14/19 08:59 Last Admin: 11/17/19 07:39 Dose: Not Given Documented by: Senna/Docusate Sodium (Senokot S) 2 tab PO HS [facility] Stop: 12/07/19 20:59 Last Admin: 11/16/19 20:47 Dose: Not Given Documented by: Tramadol HCl (Ultram) 50 mg PO Q4H PRN PRN Reason: Pain Stop: 12/07/19 10:07 Last Admin: 11/07/19 13:42 Dose: 50 mg Documented by: Vitamin D (Vitamin D3) [facility] [place] Stop: 12/15/19 08:59 Last Admin: 11/17/19 07:38 Dose: 2,000 units Documented by: Resident Activity Tracking Resident Involvement: Resident Care Provided Care Provided: Adult Hospital Medicine
[2019-11-17] MEDS: IBUPROFEN 600 MG TAB PO PRN (19:27)
[2019-11-17] MEDS: DOCUSATE SODIUM/SENNA 50/8.6MG TAB PO SCH (21:12)
[2019-11-18 06:07] LABS: Basophils # (auto) 0.02 K/uL (0-0.2); Basophils % (auto) 0.2 %; Eosinophils % (auto) 2.3 %; Hematocrit (blood only) 38.3 % (37-47); Hemoglobin 11.7 g/dL (12.0-16.0); Immature Granulocytes # (auto) 0.04 K/uL (0.00-0.02); Immature Granulocytes % (auto) 0.5 %; Lymphocytes # (auto) 1.41 K/uL (1.2-3.4); Mean Corpuscular Hemoglobin 29.5 pg (25-34); Mean Corpuscular Hgb Conc 30.5 g/dL (32-36); Mean Corpuscular Volume 96.5 fL (80-100); Mean Platelet Volume 8.2 fL (7.4-10.4); Monocytes # (auto) 0.58 K/uL (0.11-0.59); Monocytes % (auto) 6.6 %; Neutrophils # (auto) 6.55 K/uL (1.4-6.5); Neutrophils % (auto) 74.4 %; Platelet Count 306 K/uL (130-400); RDW Standard Deviation 55.9 fL (36.4-46.3); Red Blood Count 3.97 M/uL (4.2-5.4)
[2019-11-18 06:45] LABS: BUN Creatinine Ratio 34.9 (10-20); Calcium 9.3 mg/dl (8.5-10.1); Creatinine Clr Calc Pharmacy 57.8 ml/min; Est GFR (African American) 63.3; Est GFR (Non-African American) 54.6; Potassium 4.9 mmol/L (3.5-5.1)
[2019-11-18] MEDS: POLYETHYLENE (MIRALAX) 17 GM PACK PO SCH (07:37)
[2019-11-18] MEDS: FUROSEMIDE 20 MG TAB PO SCH (07:37)
[2019-11-18] MEDS: FAMOTIDINE 20 MG TAB PO SCH (07:37)
[2019-11-18] MEDS: CHOLECALCIFEROL 1,000 UNITS 25 MCG TAB PO SCH (07:38)
[2019-11-18] MEDS: HEPARIN SOD 5,000 UNIT/0.5 ML VIAL SQ SCH ×2 (07:38→20:52)
[2019-11-18] MEDS: cephALEXin 500 MG CAP PO SCH ×2 (07:38→17:37)
[2019-11-18] MEDS: AMMONIUM LACTATE 12% LOTION 225 GM BTL EXT SCH ×2 (07:38→20:52)
[2019-11-18] MEDS: ACETAMINOPHEN 500 MG TAB PO SCH ×3 (09:10→20:53)
--- NOTE | 2019-11-18 17:44 | Hospitalist Progress Note ---
Date of Service November 18, 2019 Assessment & Plan (1) Goals of care, counseling/discussion: Liane Arreguin is a 69yo woman, PMH severe biventricular heart failure, HTN, HLD, venous insufficiency, and chronically infected leg wounds who presented following a fall which resulted in a left hip fracture. Closed displaced fracture of left femoral neck: -Seen by orthopedic surgery, they do not want to operate at this time until her leg wounds have resolved -Also, pt very high risk for procedures 2/2 tenuous status of her heart as well as increased infection risk -Pressures have been soft and dropped further with opioid medications, therefore will continue Tylenol (1000mg TID ANTOLIN), ibuprofen. One time dosing of opiates prn -Patient's pain has been well controlled overall -Per ortho: "may require future Girdlestone procedure or nonoperative treatment and bed to chair nonweightbearing left leg and palliative care" -PT looking for ortho recommendations for rehab at this early stage of fracture without plans of surgical correction A fib RVR: -Due to soft pressures, was treating with digoxin (Pt ok with this as it is a natural medication). Was then held 2/2 hyperK, but now K resolved and pt refusing any and all medication management -Rates slowed over the course of the day, but back in RVR periodically -Attempted to start scheduled metoprolol tartrate 12.5 bid, but patient refusing. -Extensive discussion today with 3 providers alongside pt about heart status and medical management moving forward. It would appear that pt is very hard to re- direct and goes off on multiple tangents. But in sum, still refusing any 'non- natural' medications including any and all BB's -Digoxin level 0.4 -Will discuss starting anticoagulation now that the patient will not be undergoing procedure on left hip; ideally would like to see some further healing of the hip prior to initiating -HR are stable in the 90s-110s. We are not pursuing medical management, per wishes of pt as above. Hyperkalemia, mild moderate - resolved - In the setting of Digoxin loading. Unsure if dig is culprit - No EKG changes - Repeat BMP shows improved 4.9 (5.2 prior) this AM. Continue miralax, scheduled. -Lasix 20 mg PO changed to ANTOLIN dosing - See plan for digoxin under Afib/RVR above Cardiomyopathy: -Last echo in February 2019 shows EF 25-30%, global hypokinesis, mild LVH, severely dilated right ventricle with reduced systolic function, severe biatrial dilation, moderate aortic valve sclerosis and mild pulmonary hypertension. -Does appear to be in sinus tachycardia at this time. She has been very resistant to Lopressor treatment for this. Repeatedly states there is "nothing wrong with my heart." -Certainly adds to the picture of someone who is very high risk for any major surgeries. Cardiology consulted, agree that patient is very high risk but also that there is no great alternative and that if hip not repaired to the point of being ambulatory she would also likely have a very poor outcome. Wounds, multiple open, lower extremity: -Wound care consulted -Patient's legs with pungent smell, purulent discharge though improving daily -Culture growing MSSA -Transitioned from Daptomycin to Keflex (initiated 11/10/19). Acute combined systolic and diastolic congestive heart failure: -Will need to balance this precarious heart situation very carefully -Attempted to start the lowest dose entresto with holding parameters for blood pressure to try reduce afterload. Patient did not tolerate due to hypotension -Cardiology recommending possible low dose of carvedilol when pressures tolerate, but now that they are, patient frequently refusing any sort of medical management with metoprolol, carvedilol, etc Venous stasis dermatitis of both lower extremities: -Longstanding venous stasis dermatitis of bilat lower extremities with hx of cellulitis, sepsis from these as recently as February 2019. -Consulted wound care provider, progress already being made, necrotic tissue being removed -Keflex QID (Started 11/10/19) Home Safety: Patient admitted in February 2019 for sepsis likely secondary from chronic lower extremity cellulitis. She was seen by psychiatry at that time and evaluated, they did find her thought process to be circumstantial and at times difficult to redirect, however she denied auditory or visual hallucinations and at that time and there was not sufficient criteria to suggest a formal thought disorder. No clear indication to begin any psychiatric medications. There was also concern for possible neglect given that she is by report taken care of by her daughters and discussion of Office of Aging becoming involved? there did not appear to be neglect but rather a refusal by patient to participate with going to doctors appointments and wishing to be left alone by her children who she thinks is stealing from her. Case management consulted to aid in these issues as above. Appreciate recommendations. FEN/GI: Heart healthy diet sodium/potassium restriction DVT ppx: heparin q12 CODE STATUS: FULL DISPO: Med Tele. Patient will remain inpatient on med/surg floor until she is able to be discharged to a SNF facility (accepted at [facility]-holding bed), patient will be nonambulatory and will not be able to take care of herself at home. Supervising Physician Co-Signing Physician Notes I saw the patient with the resident physician and confirmed song portions of the history and physical examination. I agree with the impression and plan as noted above. At the time of our exam, the patient was undergoing wound care of her lower extremities. Her heart rate is actually a little improved. At the time of our examination, it was mildly tachycardic but she was undergoing wound care. Otherwise her rates ranged between 90 and the low 100s. Continue Lasix and monitor potassium Transfer to SNF this pending. Subjective 69 yo F found in bed this AM in NAD. No overnight events. Hard to re-direct conversation. Patient experiencing some L sided hip and leg pain today. Extensive dicussion today with 3 physicians and pt about condition of heart and medical management moving forward. Pt stable for d/c; however, does not want to leave until friday. No other questions or concerns. Review of Systems Review of Systems: All systems reviewed & are unremarkable except as noted in HPI & below Physical Exam Constitutional: WD/WN, vitals as above + thin Eyes: PERRL, conjunctivae normal, anicteric sclerae ENMT: external ear and nose normal, oropharynx normal Respiratory: normal respiratory effort, lungs clear to auscultation Cardiovascular: Rate/Rhythm: regular rhythm (irregularly irregular) and + tachycardic Gastrointestinal (Abdomen): normal bowel sounds, soft, nontender, no hepatosplenomegaly Musculoskeletal: Extremities: + leg foreshortened Skin: no rashes, warm and dry + wound (open leg wound/ulcer LE) Psychiatric: A+Ox3, euthymic affect Results & Data ([facility]) Vital Signs (Past 12 Hours) Vital Signs Temp Pulse Pulse Resp BP Pulse Ox 11/18/19 11:53 36.4 C L 95 H 20 114/69 90 11/18/19 08:00 94 H 11/18/19 07:12 36.4 C L 95 H 18 114/69 90 Laboratory Results Laboratory Results - last 24 hr 11/18/19 11/18/19 11/18/19 05:52 05:52 05:52 WBC 8.80 RBC 3.97 L Hgb 11.7 L Hct 38.3 MCV 96.5 MCH 29.5 MCHC 30.5 L RDW Std Deviation 55.9 H RDW Coeff of Malia 16.0 H Plt Count 306 MPV 8.2 Immature Gran % (Auto) 0.5 Neut % (Auto) 74.4 Lymph % (Auto) 16.0 [place] % (Auto) 6.6 Eos % (Auto) 2.3 Baso % (Auto) 0.2 Immature Gran # (Auto) 0.04 H Neut # (Auto) 6.55 H Lymph # (Auto) 1.41 [place] # (Auto) 0.58 Eos # (Auto) 0.20 Baso # (Auto) 0.02 Sodium 139 Potassium 4.9 Chloride 102 Carbon Dioxide 35 H Anion Gap 2.0 L BUN 36 H Creatinine 1.03 Est Cr Clr Drug Dosing 57.8 Est GFR ( Amer) 63.3 Est GFR (Non-Af Amer) 54.6 BUN/Creatinine Ratio 34.9 H Glucose 83 Calcium 9.3 Digoxin 0.4 L Medications Administered Current Inpatient Medications Acetaminophen (Tylenol) 1,000 mg PO TID [facility] Stop: 12/08/19 20:59 Last Admin: 11/18/19 14:29 Dose: 1,000 mg Documented by: Bisacodyl (Dulcolax) 10 mg [place] DAILY PRN PRN Reason: Constipation Stop: 12/07/19 07:52 Last Admin: 11/12/19 13:01 Dose: 10 mg Documented by: Cephalexin HCl (Keflex) 500 mg PO BIDM [facility]; Protocol Stop: 11/20/19 16:59 Last Admin: 11/18/19 17:37 Dose: 500 mg Documented by: Famotidine (Pepcid) 20 mg PO [facility] Stop: 12/12/19 18:59 Last Admin: 11/18/19 07:37 Dose: 20 mg Documented by: Furosemide (Lasix) 20 mg PO [facility] Stop: 12/18/19 08:59 Last Admin: 11/18/19 07:37 Dose: 20 mg Documented by: Heparin Sodium (Porcine) (Heparin Sodium (Porcine)) 5,000 units SQ Q12 [facility] Stop: 12/07/19 20:59 Last Admin: 11/18/19 07:38 Dose: Not Given Documented by: Ibuprofen (Motrin) 600 mg PO TID PRN PRN Reason: Pain Stop: 12/11/19 10:40 Last Admin: 11/17/19 19:27 Dose: 600 mg Documented by: Ketorolac Tromethamine (Toradol) 15 mg IV Q6H PRN PRN Reason: Pain Stop: 11/22/19 00:00 Last Admin: 11/17/19 02:55 Dose: 15 mg Documented by: Lactic Acid (Amlactin) 1 gm EXT BID [facility] Stop: 12/08/19 20:59 Last Admin: 11/18/19 07:38 Dose: 1 gm Documented by: Magnesium Hydroxide (Milk Of Magnesia) 30 ml PO DAILY PRN PRN Reason: Constipation Stop: 12/07/19 07:52 Last Admin: 11/10/19 07:15 Dose: 30 ml Documented by: Metoprolol Tartrate (Lopressor) 12.5 mg PO QAM [facility] Stop: 12/13/19 08:59 Last Admin: 11/13/19 10:18 Dose: 12.5 mg Documented by: Morphine Sulfate (Morphine Sulfate) 1 mg IV Q2H PRN PRN Reason: MODERATE Pain (Scale 4,5,6) Stop: 11/21/19 07:52 Naloxone HCl (Narcan) 0.1 mg IV UD PRN PRN Reason: Opiate Overdose Stop: 12/07/19 07:52 Ondansetron HCl (Zofran) 4 mg IV Q6H PRN PRN Reason: Nausea And Vomiting Stop: 12/07/19 07:52 Last Admin: 11/12/19 17:17 Dose: 4 mg Documented by: Polyethylene Glycol (Miralax Powder Packet) 17 gm PO DAILY [facility] Stop: 12/14/19 08:59 Last Admin: 11/18/19 07:37 Dose: Not Given Documented by: Senna/Docusate Sodium (Senokot S) 2 tab PO HS [facility] Stop: 12/07/19 20:59 Last Admin: 11/17/19 21:12 Dose: 2 tab Documented by: Tramadol HCl (Ultram) 50 mg PO Q4H PRN PRN Reason: Pain Stop: 12/07/19 10:07 Last Admin: 11/07/19 13:42 Dose: 50 mg Documented by: Vitamin D (Vitamin D3) [facility] [place]: 12/15/19 08:59 Last Admin: 11/18/19 07:38 Dose: 2,000 units Documented by: Resident Activity Tracking Resident Involvement: Resident Care Provided Care Provided: Adult Hospital Medicine
[2019-11-18] MEDS: DOCUSATE SODIUM/SENNA 50/8.6MG TAB PO SCH (20:53)
[2019-11-19] MEDS: KETOROLAC TROMETHAMINE 15 MG/ML VIAL IV PRN ×2 (03:03→11:09)
[2019-11-19 07:51] LABS: Basophils # (auto) 0.02 K/uL (0-0.2); Basophils % (auto) 0.2 %; Eosinophils # (auto) 0.24 K/uL (0-0.5); Hematocrit (blood only) 38.7 % (37-47); Hemoglobin 11.7 g/dL (12.0-16.0); Immature Granulocytes # (auto) 0.02 K/uL (0.00-0.02); Immature Granulocytes % (auto) 0.2 %; Lymphocytes # (auto) 1.52 K/uL (1.2-3.4); Lymphocytes % (auto) 18.8 %; Mean Corpuscular Hemoglobin 29.2 pg (25-34); Mean Corpuscular Hgb Conc 30.2 g/dL (32-36); Mean Corpuscular Volume 96.5 fL (80-100); Mean Platelet Volume 8.3 fL (7.4-10.4); Monocytes # (auto) 0.64 K/uL (0.11-0.59); Monocytes % (auto) 7.9 %; Neutrophils # (auto) 5.65 K/uL (1.4-6.5); Neutrophils % (auto) 69.9 %; Platelet Count 303 K/uL (130-400); RDW Coefficient of Variation 16.2 % (11.5-14.5); Red Blood Count 4.01 M/uL (4.2-5.4); White Blood Count 8.09 K/uL (4.8-10.8)
[2019-11-19 08:24] LABS: BUN Creatinine Ratio 33.2 (10-20); Calcium 8.9 mg/dl (8.5-10.1); Creatinine Clr Calc Pharmacy 57.8 ml/min; Est GFR (African American) 63.3; Est GFR (Non-African American) 54.6; Magnesium 2.3 mg/dl (1.8-2.4); Potassium 4.8 mmol/L (3.5-5.1)
[2019-11-19] MEDS: ACETAMINOPHEN 500 MG TAB PO SCH ×3 (09:00→19:52)
[2019-11-19] MEDS: cephALEXin 500 MG CAP PO SCH ×2 (09:01→17:31)
[2019-11-19] MEDS: POLYETHYLENE (MIRALAX) 17 GM PACK PO SCH (09:02)
[2019-11-19] MEDS: CHOLECALCIFEROL 1,000 UNITS 25 MCG TAB PO SCH (09:02)
[2019-11-19] MEDS: FUROSEMIDE 20 MG TAB PO SCH (09:02)
[2019-11-19] MEDS: FAMOTIDINE 20 MG TAB PO SCH (09:02)
[2019-11-19] MEDS: AMMONIUM LACTATE 12% LOTION 225 GM BTL EXT SCH ×2 (10:18→19:53)
[2019-11-19] MEDS: HEPARIN SOD 5,000 UNIT/0.5 ML VIAL SQ SCH ×2 (10:18→19:53)
[2019-11-19] MEDS: IBUPROFEN 600 MG TAB PO PRN (15:19)
--- NOTE | 2019-11-19 17:13 | Cardiology Progress Note ---
Date of Service November 19, 2019 Assessment & Plan (1) Tachycardia: Now in atrial fibrillation. Her rate seemed to be somewhat improved this afternoon. Her digoxin was stopped due to concerns over hyperkalemia. She was prescribed metoprolol but has not taken it. Does not been administered since 13 of November. Ideally she would be on a beta-alis both for rate control and cardiomyopathy. If she would consent to taking the medication out prescribed her metoprolol succinate 25 mg daily. (2) Cardiomyopathy: Biventricular failure. Currently not on a beta-alis. Not a good candidate for vasodilators such as Pj inhibition. Overall blood pressure is low and I do not believe will have additional options for medical therapy. She seems well compensated currently. (3) Atrial fibrillation: As above. Ideally she would be on beta-blockade and on anticoagulation. In the past she has refused both. Do not believe we have any additional medical options. Fortunately her heart rates are not optimal but not severely elevated either. Subjective This apnea the patient complained of occasional hip pain, but had no other complaints. He has not been aware of any palpitations. She appears to be tolerating a regular diet. No significant breathing trouble Review of Systems Review of Systems: Per HPI Physical Exam Physical Exam: She is alert and oriented x3. Mood affect appear normal. She answered all questions appropriately. HEENT: Sclerae are anicteric. Extraocular movements were intact. Neuro: Cranial nerves intact Lungs: Lungs are clear to auscultation bilaterally. There are no rales wheezes or rhonchi. She has normal respiratory effort without use of accessory muscles. There is normal pulmonary excursion. Cardiac: The rhythm was irregular. S1 and S2 were normal. There are no murmurs on examination. The PMI was not markedly displaced on palpation. Extremities: Patient has bilateral radial pulses that are equal in intensity. There is no evidence cyanosis or clubbing. Lower extremities have significant skin changes with weeping and fell discharge. Results & Data Vital Signs (Past 12 Hours) Vital Signs Temp Pulse Pulse Resp BP BP Pulse Ox 11/19/19 15:09 36.7 C 87 18 101/60 95 11/19/19 11:31 36.3 C L 78 18 100/68 98 11/19/19 07:36 36.7 C 78 18 121/83 98 11/19/19 07:00 88 Laboratory Results Abnormal Lab Results 11/19/19 11/19/19 11/19/19 07:38 07:38 07:38 WBC 8.09 RBC 4.01 L Hgb 11.7 L Hct 38.7 MCV 96.5 MCH 29.2 MCHC 30.2 L RDW Std Deviation 57.0 H RDW Coeff of Malia 16.2 H Plt Count 303 MPV 8.3 Immature Gran % (Auto) 0.2 Neut % (Auto) 69.9 Lymph % (Auto) 18.8 [place] % (Auto) 7.9 Eos % (Auto) 3.0 Baso % (Auto) 0.2 Immature Gran # (Auto) 0.02 Neut # (Auto) 5.65 Lymph # (Auto) 1.52 [place] # (Auto) 0.64 H Eos # (Auto) 0.24 Baso # (Auto) 0.02 Sodium 138 Potassium 4.8 Chloride 104 Carbon Dioxide 32 Anion Gap 3.0 BUN 34 H Creatinine 1.03 Est Cr Clr Drug Dosing 57.8 Est GFR ( Amer) 63.3 Est GFR (Non-Af Amer) 54.6 BUN/Creatinine Ratio 33.2 H Glucose 83 Calcium 8.9 Magnesium 2.3 Digoxin 0.4 L PG Care Time/CCT Total # of Minutes Spent Total Time Spent with Patient: Total time spent is greater than 50% in coordination of care (as documented) at patient's floor/unit and/or counseling patient: Coding Level of Care Code 98906 Subseq Hosp Care Lvl 3 Diagnoses Tachycardia R00.0 Cardiomyopathy I42.9 Atrial fibrillation I48.91
--- NOTE | 2019-11-19 17:39 | Hospitalist Progress Note ---
Date of Service November 19, 2019 Assessment & Plan (1) Closed fracture of left hip: 69-year-old female was admitted on 07 November 2019 after a fall at home. Closed displaced fracture of the left femoral neck: See Ortho notes. Would require left hip hemiarthroplasty when medically stable. See cardiology notes, assessed as very high risk. Non-weightbearing left leg. Avoiding opioids due to soft blood pressures. Pain control with Tylenol and Motrin. Sinus tachycardia, A. fib with RVR: See previous notes regarding extensive discussions over multiple days regarding offering the patient options on treatment of her tachycardia to include risks and benefits of not being on cardiac medication such as beta blockers or digoxin. Patient continues to refuse any beta-blockers and most recently wants to think about digoxin. - Rates have improved a bit to around the 90s. We are concerned about potential impact of digoxin on her potassium level. Thus no workable medication options really at present. - Friends are going to try to speak with a family friend that is a doctor for advice. - Noted to have an eight-beat run of V. tach overnight -. K and Mg checks were in good ranges. - Of note, patient has previously been seen by psych. No noted thought disorder. Patient is thought to have capacity to make her own decisions. Hyperkalemia: As high as 6.0. In setting of digoxin loading (? coincidence). Treating with MiraLAX. Patient has refused systemic anticoagulation. This morning was 4.8. Bedbug infection: Was on contact precautions, stopped on . Multiple open leg wounds: Wound care following, debriding necrotic tissue. wound culture grew MSSA. transition from daptomycin to Keflex. On AmLactin. Peripheral vascular disease: Seen on lower extremity arterial scan. Ongoing medical issues: - Hypertension, hyperlipidemia: Started on metoprolol. Home lisinopril was held. - Combined systolic and diastolic CHF, cardiomyopathy: Severe LV and RV dysfunction, February 2019 echo with EF 25-30%. Here, started on low-dose Entresto but did not tolerate due to BP. May benefit from low-dose Coreg (if patient would accept it). --- Started on scheduled Lasix 20 mg PO q AM. - Lower extremity venous stasis: Longstanding. - Visual impairment. Goals of care: See palliative care note. Psych has declined to see the patient. Code status: Full code Diet: Heart healthy, low-sodium. DVT prophy: Heparin 5000 units every 12 hours. PT/OT: No acute PT needs until off bed rest. Disbo: MedSurg with telemetry. Has been accepted at [facility]. If heart rate remains stable < 100, hopefully discharge to there tomorrow (). (2) Tachycardia: (3) Atrial fibrillation: (4) Hyperkalemia: (5) Infestation by bed bug: (6) Wounds, multiple open, lower extremity: (7) Peripheral vascular disease: (8) Hypertension: (9) Hyperlipemia: (10) Combined systolic and diastolic heart failure: (11) Cardiomyopathy: (12) Venous stasis dermatitis of both lower extremities: (13) Visual impairment: Supervising Physician Co-Signing Physician Notes Patient seen and examined with PGY-3 Dr. Medina. Agree with history, exam findings, assessment and plan of care as outlined. In brief, Liane is a 69 year old female with history of cardiomyopathy, HTN, afib and lower extremity wounds admitted with left hip fracture. She has friends that are gathering information about [facility] for her. She does not feel that she is well enough to leave the hospital today. HRs have been improved today. 1. hip fracture. high risk for operative intervention. NWB on the left LE. managing pain. 2. afib/tachycardia. s/p dig, but had hyperkalemia. Pt has declined other medical interventions for this. Her HRs are actually better today so will monitor and continue to offer medications to control her heart rate as appropriate. 3. cardiomyopathy. Continue home lisinopril and lasix. 4. cellulitis. On keflex. continue. Dispo: plan for discharge to [facility] tomorrow. Subjective Met with the patient at bedside for about 15 minutes. Of note, this is the fifth day in a row in which I have had the pleasure to speak with Ms. Arreguin. Similar to previous conversations, on multiple attempts we offered to provide her whenever help she may request or desire. Patient's answers tend to be somewhat logical but not directly on topic. For example, she will often say that only we can provide the answer to what she needs because we are her doctors. She says of course she has been some level of pain because she has a broken hip and sores on her legs. On the big picture scale, she expresses understanding that we are working to have her be transferred to [facility] for further care, and as her heart seems to be stabilizing and thus would no longer require hospital level care. Patient seems to accept this but overall says she would prefer to stay in the hospital as long as possible for any care that is required. On multiple attempts, patient did not directly state any other immediate concerns. Review of Systems Review of Systems: Per HPI as above. Physical Exam Physical Exam: General Appearance: Awake, alert & oriented, comfortable in general, NAD. Eyes: Legally blind. CV: +S1S2 irregularly irregular but not tachycardic. No murmur appreciated. Pulm: Clear to auscultation throughout. Abdomen: +BS, soft, non-tender, non-distended. Extremities: Moving all extremities with the exception of her left leg easily. The bilateral lower extremities have areas of scaling with more focal areas of erythema. Neuro: No gross acute neuro deficits. Results & Data ([facility]) Vital Signs (Past 12 Hours) Vital Signs Temp Pulse Pulse Resp BP BP Pulse Ox 11/19/19 15:09 36.7 C 87 18 101/60 95 11/19/19 11:31 36.3 C L 78 18 100/68 98 11/19/19 07:36 36.7 C 78 18 121/83 98 11/19/19 07:00 88 Laboratory Results 11/19/19 11/19/19 11/19/19 Range/Units 07:38 07:38 07:38 WBC 8.09 (4.8-10.8) K/uL RBC 4.01 L (4.2-5.4) M/uL Hgb 11.7 L (12.0-16.0) g/dL Hct 38.7 (37-47) % MCV 96.5 (80-100) fL MCH 29.2 (25-34) pg MCHC 30.2 L (32-36) g/dL RDW Std Deviation 57.0 H (36.4-46.3) fL RDW Coeff of Malia 16.2 H (11.5-14.5) % Plt Count 303 (130-400) K/uL MPV 8.3 (7.4-10.4) fL Immature Gran % (Auto) 0.2 % Neut % (Auto) 69.9 % Lymph % (Auto) 18.8 % [place] % (Auto) 7.9 % Eos % (Auto) 3.0 % Baso % (Auto) 0.2 % Immature Gran # (Auto) 0.02 (0.00-0.02) K/uL Neut # (Auto) 5.65 (1.4-6.5) K/uL Lymph # (Auto) 1.52 (1.2-3.4) K/uL [place] # (Auto) 0.64 H (0.11-0.59) K/uL Eos # (Auto) 0.24 (0-0.5) K/uL Baso # (Auto) 0.02 (0-0.2) K/uL Sodium 138 (136-145) mmol/L Potassium 4.8 (3.5-5.1) mmol/L Chloride 104 (98-107) mmol/L Carbon Dioxide 32 (21-32) mmol/L Anion Gap 3.0 (3-11) BUN 34 H (7-18) mg/dl Creatinine 1.03 (0.6-1.2) mg/dl Est Cr Clr Drug Dosing 57.8 ml/min Est GFR ( Amer) 63.3 Est GFR (Non-Af Amer) 54.6 BUN/Creatinine Ratio 33.2 H (10-20) Glucose 83 (70-99) mg/dl Calcium 8.9 (8.5-10.1) mg/dl Magnesium 2.3 (1.8-2.4) mg/dl Digoxin 0.4 L (0.8-2.0) ng/ml Medications Administered Current Inpatient Medications Acetaminophen (Tylenol) 1,000 mg PO TID [facility] Stop: 12/08/19 20:59 Last Admin: 11/19/19 15:13 Dose: Not Given Documented by: Bisacodyl (Dulcolax) 10 mg NE DAILY PRN PRN Reason: Constipation Stop: 12/07/19 07:52 Last Admin: 11/12/19 13:01 Dose: 10 mg Documented by: Cephalexin HCl (Keflex) 500 mg PO BIDM [facility]; Protocol Stop: 11/20/19 16:59 Last Admin: 11/19/19 17:31 Dose: 500 mg Documented by: Famotidine (Pepcid) 20 mg PO QAM [facility] Stop: 12/12/19 18:59 Last Admin: 11/19/19 09:02 Dose: 20 mg Documented by: Furosemide (Lasix) 20 mg PO QAM [facility] Stop: 12/18/19 08:59 Last Admin: 11/19/19 09:02 Dose: 20 mg Documented by: Heparin Sodium (Porcine) (Heparin Sodium (Porcine)) 5,000 units SQ Q12 [facility] Stop: 12/07/19 20:59 Last Admin: 11/19/19 10:18 Dose: 5,000 units Documented by: Ibuprofen (Motrin) 600 mg PO TID PRN PRN Reason: Pain Stop: 12/11/19 10:40 Last Admin: 11/19/19 15:19 Dose: 600 mg Documented by: Ketorolac Tromethamine (Toradol) 15 mg IV Q6H PRN PRN Reason: Pain Stop: 11/22/19 00:00 Last Admin: 11/19/19 11:09 Dose: 15 mg Documented by: Lactic Acid (Amlactin) 1 gm EXT BID [facility] Stop: 12/08/19 20:59 Last Admin: 11/19/19 10:18 Dose: 1 gm Documented by: Magnesium Hydroxide (Milk Of Magnesia) 30 ml PO DAILY PRN PRN Reason: Constipation Stop: 12/07/19 07:52 Last Admin: 11/10/19 07:15 Dose: 30 ml Documented by: Metoprolol Tartrate (Lopressor) 12.5 mg PO [facility] Stop: 12/13/19 08:59 Last Admin: 11/13/19 10:18 Dose: 12.5 mg Documented by: Morphine Sulfate (Morphine Sulfate) 1 mg IV Q2H PRN PRN Reason: MODERATE Pain (Scale 4,5,6) Stop: 11/21/19 07:52 Naloxone HCl (Narcan) 0.1 mg IV UD PRN PRN Reason: Opiate Overdose Stop: 12/07/19 07:52 Ondansetron HCl (Zofran) 4 mg IV Q6H PRN PRN Reason: Nausea And Vomiting Stop: 12/07/19 07:52 Last Admin: 11/12/19 17:17 Dose: 4 mg Documented by: Polyethylene Glycol (Miralax Powder Packet) 17 gm PO DAILY [facility] Stop: 12/14/19 08:59 Last Admin: 11/19/19 09:02 Dose: Not Given Documented by: Senna/Docusate Sodium (Senokot S) 2 tab PO HS [facility] Stop: 12/07/19 20:59 Last Admin: 11/18/19 20:53 Dose: Not Given Documented by: Tramadol HCl (Ultram) 50 mg PO Q4H PRN PRN Reason: Pain Stop: 12/07/19 10:07 Last Admin: 11/07/19 13:42 Dose: 50 mg Documented by: Vitamin D (Vitamin D3) 2,000 units PO QAM [facility] Stop: 12/15/19 08:59 Last Admin: 11/19/19 09:02 Dose: 2,000 units Documented by: Resident Activity Tracking Resident Involvement: Resident Care Provided Care Provided: Adult Hospital Medicine (1) Hyperlipemia Hyperlipidemia type: unspecified Qualified Code(s): E78.5 - Hyperlipidemia, unspecified (2) Closed fracture of left hip Encounter type: initial encounter Qualified Code(s): S72.002A - Fracture of unspecified part of neck of left femur, initial encounter for closed fracture
[2019-11-19] MEDS: DOCUSATE SODIUM/SENNA 50/8.6MG TAB PO SCH (19:54)
[2019-11-20] MEDS: KETOROLAC TROMETHAMINE 15 MG/ML VIAL IV PRN ×2 (06:22→19:45)
[2019-11-20 08:42] LABS: BUN Creatinine Ratio 32.2 (10-20); Calcium 9.1 mg/dl (8.5-10.1); Creatinine Clr Calc Pharmacy 51.3 ml/min; Est GFR (African American) 54.9; Est GFR (Non-African American) 47.3; Potassium 4.4 mmol/L (3.5-5.1)
[2019-11-20] MEDS: FAMOTIDINE 20 MG TAB PO SCH (09:18)
[2019-11-20] MEDS: HEPARIN SOD 5,000 UNIT/0.5 ML VIAL SQ SCH ×2 (09:18→20:24)
[2019-11-20] MEDS: FUROSEMIDE 20 MG TAB PO SCH (09:18)
[2019-11-20] MEDS: ACETAMINOPHEN 500 MG TAB PO SCH ×3 (09:24→20:25)
[2019-11-20] MEDS: cephALEXin 500 MG CAP PO SCH (09:24)
[2019-11-20] MEDS: POLYETHYLENE (MIRALAX) 17 GM PACK PO SCH (09:25)
[2019-11-20] MEDS: CHOLECALCIFEROL 1,000 UNITS 25 MCG TAB PO SCH (09:25)
[2019-11-20] MEDS: AMMONIUM LACTATE 12% LOTION 225 GM BTL EXT SCH ×2 (09:26→20:23)
--- NOTE | 2019-11-20 16:28 | Hospitalist Progress Note ---
Date of Service November 20, 2019 Assessment & Plan (1) Closed fracture of left hip: 69-year-old female was admitted on 07 November 2019 after a fall at home. Closed displaced fracture of the left femoral neck See Ortho notes. Would require left hip hemiarthroplasty when medically stable. See cardiology notes, assessed as very high risk. Non-weightbearing left leg. Avoiding opioids due to soft blood pressures. Pain control with Tylenol and Motrin. Sinus tachycardia, A. fib with RVR See previous notes regarding extensive discussions over multiple days regarding offering the patient options on treatment of her tachycardia to include risks and benefits of not being on cardiac medication such as beta blockers or digoxin. Patient continues to refuse any beta-blockers and most recently wants to think about digoxin. - Rates have improved a bit to around the 90s. We are concerned about potential impact of digoxin on her potassium level. Thus no workable medication options really at present. - Noted to have an eight-beat run of V. tach overnight -. K and Mg checks were in good ranges. - Of note, patient has previously been seen by psych. No noted thought disorder. Patient is thought to have capacity to make her own decisions. Hyperkalemia As high as 6.0. In setting of digoxin loading (? coincidence). Treating with MiraLAX. Patient has refused systemic anticoagulation. Bedbug infection Was on contact precautions, stopped on . Multiple open leg wounds Wound care following, debriding necrotic tissue. wound culture grew MSSA. transition from daptomycin to Keflex. On AmLactin. Peripheral vascular disease Seen on lower extremity arterial scan. Ongoing medical issues: - Hypertension, hyperlipidemia: Started on metoprolol. Home lisinopril was held. - Combined systolic and diastolic CHF, cardiomyopathy: Severe LV and RV dysfunction, February 2019 echo with EF 25-30%. Here, started on low-dose Entresto but did not tolerate due to BP. May benefit from low-dose Coreg (if patient would accept it). Started on scheduled Lasix 20 mg PO q AM. - Lower extremity venous stasis: Longstanding. - Visual impairment. Goals of care See palliative care note. Psych has declined to see the patient. Code status: Full code Diet: Heart healthy, low-sodium. DVT prophy: Heparin 5000 units every 12 hours. PT/OT: No acute PT needs until off bed rest. Disbo: MedSurg with telemetry. Has been accepted at [facility]. Group meeting tomorrow with case management, around 1 PM. (2) Tachycardia: (3) Atrial fibrillation: (4) Hyperkalemia: (5) Infestation by bed bug: (6) Wounds, multiple open, lower extremity: (7) Peripheral vascular disease: (8) Hypertension: (9) Hyperlipemia: (10) Combined systolic and diastolic heart failure: (11) Cardiomyopathy: (12) Venous stasis dermatitis of both lower extremities: (13) Visual impairment: Subjective Patient has some pain of her left hip. She also is having pain into both of her legsstates that they become uncomfortable touching the sheets. Has hesitations about being discharged to [facility]. Review of Systems Review of Systems: All systems reviewed & are unremarkable except as noted in HPI & below Physical Exam Constitutional: WD/WN, vitals as above ENMT: Ears: no external ear abnormality Nose: no external nose abnormality Neck: trachea midline, no thyromegaly Respiratory: normal respiratory effort, lungs clear to auscultation Cardiovascular: Rate/Rhythm: regular rate and regular rhythm 2 out of 6 systolic murmur Irregularly irregular Gastrointestinal (Abdomen): normal bowel sounds, soft, nontender, no hepatosplenomegaly Musculoskeletal: no cyanosis or clubbing, extremities motor strength 5/5 Skin: Dry hyperkeratotic skin on bilateral lower extremities, improved Neurologic: PERRL, EOMI, accommodation nl, no face palsy, no dysarthria Psychiatric: A+Ox3, euthymic affect Results & Data ([facility]) Vital Signs (Past 12 Hours) Vital Signs Temp Pulse Pulse Resp BP Pulse Ox 11/20/19 16:00 105 H 11/20/19 14:57 36.7 C 85 19 111/69 92 11/20/19 12:00 101 H 11/20/19 11:35 36.5 C 106 H 18 92/54 L 94 11/20/19 08:00 115 H 11/20/19 07:44 36.7 C 97 H 20 113/73 92 Resident Activity Tracking Resident Involvement: Resident Care Provided Care Provided: Adult Hospital Medicine (1) Closed fracture of left hip Encounter type: initial encounter Qualified Code(s): S72.002A - Fracture of unspecified part of neck of left femur, initial encounter for closed fracture (2) Hyperlipemia Hyperlipidemia type: unspecified Qualified Code(s): E78.5 - Hyperlipidemia, unspecified
[2019-11-20] MEDS: DOCUSATE SODIUM/SENNA 50/8.6MG TAB PO SCH (20:24)
[2019-11-21] MEDS: KETOROLAC TROMETHAMINE 15 MG/ML VIAL IV PRN ×2 (05:54→12:56)
[2019-11-21] MEDS: ACETAMINOPHEN 500 MG TAB PO SCH ×3 (08:49→20:14)
[2019-11-21] MEDS: POLYETHYLENE (MIRALAX) 17 GM PACK PO SCH (08:49)
[2019-11-21] MEDS: CHOLECALCIFEROL 1,000 UNITS 25 MCG TAB PO SCH (08:49)
[2019-11-21] MEDS: FAMOTIDINE 20 MG TAB PO SCH (08:50)
[2019-11-21] MEDS: HEPARIN SOD 5,000 UNIT/0.5 ML VIAL SQ SCH ×2 (08:50→20:13)
[2019-11-21] MEDS: FUROSEMIDE 20 MG TAB PO SCH (08:50)
[2019-11-21] MEDS: AMMONIUM LACTATE 12% LOTION 225 GM BTL EXT SCH ×2 (08:50→20:13)
[2019-11-21] MEDS ORDERED: KETOROLAC TROMETHAMINE 10 MG TABLET PO PRN (13:53)
--- NOTE | 2019-11-21 14:58 | Hospitalist Progress Note ---
Date of Service November 21, 2019 Assessment & Plan (1) Closed fracture of left hip: 69-year-old female was admitted on 07 November 2019 after a fall at home. Closed displaced fracture of the left femoral neck See Ortho notes. Would require left hip hemiarthroplasty when medically stable. See cardiology notes, assessed as very high risk. Non-weightbearing left leg. Avoiding opioids due to soft blood pressures. Pain control with Tylenol and Motrin. Sinus tachycardia, A. fib with RVR See previous notes regarding extensive discussions over multiple days regarding offering the patient options on treatment of her tachycardia to include risks and benefits of not being on cardiac medication such as beta blockers or digoxin. Patient continues to refuse any beta-blockers and most recently wants to think about digoxin. - Rates have improved a bit to around the 90s. We are concerned about potential impact of digoxin on her potassium level. Thus no workable medication options really at present. - Of note, patient has previously been seen by psych. No noted thought disorder. Patient is thought to have capacity to make her own decisions. Hyperkalemia As high as 6.0. In setting of digoxin loading (? coincidence). Treating with MiraLAX. Patient has refused systemic anticoagulation. Bedbug infection Was on contact precautions, stopped on . Multiple open leg wounds Wound care following, debriding necrotic tissue. wound culture grew MSSA. transition from daptomycin to Keflex. On AmLactin. Peripheral vascular disease Seen on lower extremity arterial scan. Ongoing medical issues: - Hypertension, hyperlipidemia: Started on metoprolol. Home lisinopril was held. - Combined systolic and diastolic CHF, cardiomyopathy: Severe LV and RV dysfunction, February 2019 echo with EF 25-30%. Here, started on low-dose Entresto but did not tolerate due to BP. May benefit from low-dose Coreg (if patient would accept it). Started on scheduled Lasix 20 mg PO q AM. - Lower extremity venous stasis: Longstanding. - Visual impairment. Goals of care See palliative care note. Psych has declined to see the patient. Code status: Full code Diet: Heart healthy, low-sodium. DVT prophy: Heparin 5000 units every 12 hours. PT/OT: No acute PT needs until off bed rest. Disbo: MedSurg with telemetry. Has been accepted at [facility]. Plan is to be discharged tomorrow to her side. Supervising Physician Co-Signing Physician Notes Patient seen and examined with PGY-3 Dr. Howard Andrade. Agree with history, exam findings, assessment and plan of care as outlined. In brief, Liane is a 69 year old female with history of cardiomyopathy, HTN, afib and lower extremity wounds admitted with left hip fracture. Seen today with Veronica (Care Management). She does not feel that she can leave the hospital today. She tells us that she needs until Friday. HRs have been up and down. Leg cellulitis is improved today. Was given IV toradol today. 1. hip fracture. high cardiac risk for operative intervention. NWB on the left LE. managing pain with motrin and tylenol. D/C'ed toradol as she had both toradol and motrin ordered. 2. afib/tachycardia. s/p dig, but had hyperkalemia. Pt has declined other medical interventions for this. Her HRs intermittently elevated. Will continue to offer medications to control her heart rate as appropriate. 3. cardiomyopathy. Continue home lisinopril and lasix. Would benefit from a beta alis if she were so inclined. 4. cellulitis. On keflex. continue. Appreciate CM's time today. Will plan to continue to have CM present when medical team rounds. Dispo: hopeful for discharge to [facility] tomorrow. Subjective Patient continues to be hesitant about discharge. States that she is scared about the next step. She continues to say that were trying to get rid of her. She does describe continued pain in her left hip. Review of Systems Review of Systems: Negative except for above, left hip pain Physical Exam Constitutional: WD/WN, vitals as above ENMT: Ears: no external ear abnormality Nose: no external nose abnormality Neck: trachea midline, no thyromegaly Musculoskeletal: no cyanosis or clubbing, extremities motor strength 5/5 Dr juarez, hyperkeratotic, hyperpigmented skin of bilateral lower extremities Neurologic: PERRL, EOMI, accommodation nl, no face palsy, no dysarthria Psychiatric: A+Ox3, euthymic affect Results & Data ([facility]) Vital Signs (Past 12 Hours) Vital Signs Temp Pulse Pulse Pulse Resp BP Pulse Ox 11/21/19 12:00 36.5 C 107 H 20 96/63 L 92 11/21/19 08:00 125 H 11/21/19 07:30 36.6 C 90 20 89/55 L 90 11/21/19 04:00 36.8 C 104 H 18 126/73 91 Resident Activity Tracking Resident Involvement: Resident Care Provided Care Provided: Adult Hospital Medicine (1) Closed fracture of left hip Encounter type: initial encounter Qualified Code(s): S72.002A - Fracture of unspecified part of neck of left femur, initial encounter for closed fracture
[2019-11-21] MEDS: IBUPROFEN 600 MG TAB PO PRN (16:03)
[2019-11-21] MEDS: DOCUSATE SODIUM/SENNA 50/8.6MG TAB PO SCH (20:14)
[2019-11-22] MEDS: IBUPROFEN 600 MG TAB PO PRN ×2 (01:48→09:53)
[2019-11-22] MEDS: AMMONIUM LACTATE 12% LOTION 225 GM BTL EXT SCH (08:14)
[2019-11-22] MEDS: FUROSEMIDE 20 MG TAB PO SCH (08:14)
[2019-11-22] MEDS: ACETAMINOPHEN 500 MG TAB PO SCH ×2 (08:14→12:17)
[2019-11-22] MEDS: HEPARIN SOD 5,000 UNIT/0.5 ML VIAL SQ SCH (08:14)
[2019-11-22] MEDS: CHOLECALCIFEROL 1,000 UNITS 25 MCG TAB PO SCH (08:14)
[2019-11-22] MEDS: POLYETHYLENE (MIRALAX) 17 GM PACK PO SCH (08:15)
[2019-11-22] MEDS: FAMOTIDINE 20 MG TAB PO SCH (08:15)
[2019-11-22 11:29] VITALS: BP 99/69; PULSE 75; TEMP 97.9; O2SAT 96
--- NOTE | 2019-11-22 13:19 | Discharge Summary ---
Date of Service November 22, 2019 Admission HPI Per Admitting Provider Liane Arreguin is a 69yo C female with history of HTN, HLP, PAF presenting after a fall at home. Patient is visually impaired. She reports walking through her kitchen this evening. Her oven was open and turned on to assist with heating the home. She tripped over the oven and thinks she did a somersault, landing on her left hip. She was unable to get up unassisted, unable to bear weight. Found to have fracture of left hip on x-ray. Patient complaining of severe discomfort in the left hip. No additional complaints at this time. ER course: Fentanyl 25mcg, 50mcg, Metoprolol 5mg IV ordered by ER attending and refused by patient Admission Exam (Per Admitting) Constitutional General: patient resting comfortably, NAD, non-toxic in appearance, AA&O x 4 Skin: warm, dry, bialteral LE with severe stasis dermatitis, flaking with some areas of serosanguinous drainage, old dressings in place HEENT: NC/AT, PERRL, EOMI, anicteric sclera, conjunctiva without injection, external ear normal to inspection and nontender, nares patent, dry mucus membranes, edentulous, no oropharyngeal lesions, neck supple, trachea midline, no LAD, no thyromegaly, no JVD Heart: +S1/S2, tachycardic, regular with occasional ectopy, no m/r/g Lungs: equal air entry bilaterally, no rales/rhonchi/wheezes Abd: +BS, soft, NT/ND, no masses/organomegaly/ascites Ext: warm, 2+ pulses in UE/LE bilaterally, no clubbing/cyanosis or edema Neuro: nonfocal, patient AA&O x 4, speech intact, no facial droop, moving all extremities on command with equal strength 5/5, LLE neurovascularly intact, severe pain with movement of LLE Discharge Data Consultations 11/07/19 04:06 ED Decision to Admit Stat 11/07/19 07:53 Consult Case Management - Discharge Planning Routine Consult Orthopedic Surgery Routine 11/07/19 10:49 Consult Cardiology Routine 11/07/19 12:56 Consult Wound Care Provider Routine 11/08/19 10:12 Consult Palliative Care Routine 11/08/19 10:39 Consult Anesthesiology Routine Hospital Course (1) Closed fracture of left hip: Héctor is a 69-year-old female with a past medical history of hypertension, hyperlipidemia, blindness, and A. fib who presented after falling in her kitchen at home and being unable to bear weight, and who was found to have a left hip fracture on admitting x-ray. She was admitted for management of closed displaced fracture of the left femoral neck. Closed displaced fracture of the left femoral neck Admitting x-ray showed a moderately displaced transcervical left femoral neck fracture. Orthopedics was consulted but noted that she was at high cardiac risk given her A. fib with episodes of RVR and refusal of pharmacologic therapy. She was also noted to have chronic infection of her feet bilaterally. She was med ically managed, and surgical intervention was deferred. Orthopedics noted that left hip hemiarthroplasty could be performed when and if she was medically stable, but she would require treatment for her chronic leg wounds. Overall, they noted that she is a very poor surgical candidate. Intervention was deferred, but she may follow-up as suggested by primary care physician as an outpatient with orthopedics pending her clinical course and medical stability. Plans on discharge were to pursue medical nonoperative treatment, but she could be a potential [facility] candidate in the future. She was discharged to [facility] for further care. Sinus tachycardia, A. fib with RVR Liane has a history of atrial fibrillation with RVR in addition to ventricular arrhythmia. She was noted to be in sinus tachycardia during admission with rates in the 90s, which improved with pain control with Tylenol. Cardiology was consulted. She was found to have some biventricular failure with severe LV and RV dysfunction (February 2019 echo showing EF 25 to 30%) resulting in lower extremity edema. It was recommended that given her biventricular failure and history of atrial fibrillation that she be started on a beta-alis in addition to a blood thinner. This was discussed with the patient who adamantly refused beta-alis and anticoagulation therapy. She was able to verbalize the risks/benefits of both beta-alis and anticoagulation therapy, and the potential risk of harm, stroke, or from her medical conditions if left untreated. These were not started during admission or discharge based on extended conversation with the patient. Digoxin therapy was limited by hyperkalemia. On follow-up discussion she deferred digoxin therapy after her hyperkalemia resolved, although noted that she might be more open to it in the future if she decompensated. She had been seen on prior admission by psychiatry who noted that she had capacity for her medical decisions. She was discharged with follow-up to long-term and her primary care physician. Her rates had improved to the 80s to 90s at time of discharge. Multiple open leg wounds/peripheral vascular disease Patient was noted to have multiple open leg wounds with foul smell and purulent discharge on admission. Wound care was consulted, and wound cultures were obtained. She was treated empirically with daptomycin which was narrowed to Keflex after wound cultures showed MSSA. Debridement was performed by wound care. He was noted to have persistent venous stasis changes. A lower artery duplex was obtained which showed multifocal significant stenoses of the left superficial femoral artery and the proximal/mid femoral artery. Some suggestion of a right-sided pelvic arterial stenosis. ABIs could not be performed due to patient intolerance, and distal extremity exam was somewhat limited by her multiple leg wounds. She is not felt to be an interventional candidate. She completed antibiotic treatment during hospital admission, with improvement to her leg swelling and wounds. She will require ongoing wound care and evaluation to be managed by long-term. Peripheral vascular disease Patient was noted to have persistent venous stasis and changes of her feet bilaterally as noted above. Hypertension, combined systolic/diastolic CHF: Patient was found to have hypertension and combined systolic and diastolic CHF, cardiomyopathy with severe LV and RV dysfunction, February 2019 echo with EF 25-30%. She was not able to tolerate Entresto due to blood pressure. She declined beta- alis therapy as noted above. She received Lasix during congestion with some improvement in her distal extremity edema, and was agreeable to taking Lasix 40 mg daily on discharge. She is also agreeable to taking lisinopril daily, she is discharged to continue this as outpatient. Hyperkalemia Patient was hyperkalemic during her admission, with supportive care and hydration her potassium normalized by time of discharge. Bedbug infection Prior to admission patient was noted to have bedbug infestation. She was placed on contact precautions, and her clothes and belongings were collected for isolation. He remained clinically well, and contact precautions were lifted du ring admission. Goals of care Given the patient's illness, and preference to avoid most medical treatments palliative care was consulted during admission. They noted that she identified as a , and her heritage was very important to her and that the patient lived a spiritual life with some homeopathic medicine and rare Western medicine. They noted that while her decision-making ability had been questioned in the past due to some unusual beliefs, she was oriented and was able to express the risks and benefits of decisions for herself and had capacity to do so. She noted that her ultimate goal would be to return home, and was not pleased but agreeable to long-term after discharge. Full code. DVT prophylaxis Heparin 5000 units subcu was maintained for DVT prophylaxis during admission. She did not show signs of DVT during admission. Supervising Physician Co-Signing Physician Notes I personally examined the patient and verified all song points of history and exam, discussed case, and agree with decision making with Dr Villanueva. Feeling okay about going to [facility] today. No new issues. Vitals noted, in general she is awake and alert pleasant no distress. HEENT normocephalic atraumatic mucous membranes moist. Breathing unlabored no accessory muscle use good effort. Neuro shows no focal deficits, does have her chronic blindness. 1. hip fracture. high cardiac risk for operative intervention. NWB on the left LE. managing pain with motrin and tylenol. Stable for SNF 2. afib/tachycardia. s/p dig, but had hyperkalemia. Pt has declined other medical interventions for this. Her HRs intermittently elevated. Fortunately the further removed she gets from her acute fracture the more stable her heart rate has been 3. cardiomyopathy. Continue home lisinopril and lasix as possible. Would benefit from a beta alis if she allowed, also have attempted to treat with Entresto, but she has declined. 4. cellulitis. Secondary to venous stasis/ulcersnow doing much better. Finished a fairly extended course of antibiotics predominantly with Keflex. Will hold on further antibiotics for now, continue local wound care. Can resume antibiotics if needed. Stable for discharge to [facility]. <30mins
--- NOTE | 2019-11-22 17:27 | Billing Data ---
Date of Service November 22, 2019 Coding Level of Care Code D/C Day Management <30 mins
--- NOTE | 2019-11-22 18:10 | Discharge Summary ---
Date of Service November 22, 2019 Admission HPI Per Admitting Provider Liane Arreguin is a 69yo C female with history of HTN, HLP, PAF presenting after a fall at home. Patient is visually impaired. She reports walking through her kitchen this evening. Her oven was open and turned on to assist with heating the home. She tripped over the oven and thinks she did a somersault, landing on her left hip. She was unable to get up unassisted, unable to bear weight. Found to have fracture of left hip on x-ray. Patient complaining of severe discomfort in the left hip. No additional complaints at this time. ER course: Fentanyl 25mcg, 50mcg, Metoprolol 5mg IV ordered by ER attending and refused by patient Admission Exam Per Admitting Provider General: patient resting comfortably, NAD, non-toxic in appearance, AA&O x 4 Skin: warm, dry, bialteral LE with severe stasis dermatitis, flaking with some areas of serosanguinous drainage, old dressings in place HEENT: NC/AT, PERRL, EOMI, anicteric sclera, conjunctiva without injection, external ear normal to inspection and nontender, nares patent, dry mucus membranes, edentulous, no oropharyngeal lesions, neck supple, trachea midline, no LAD, no thyromegaly, no JVD Heart: +S1/S2, tachycardic, regular with occasional ectopy, no m/r/g Lungs: equal air entry bilaterally, no rales/rhonchi/wheezes Abd: +BS, soft, NT/ND, no masses/organomegaly/ascites Ext: warm, 2+ pulses in UE/LE bilaterally, no clubbing/cyanosis or edema Neuro: nonfocal, patient AA&O x 4, speech intact, no facial droop, moving all extremities on command with equal strength 5/5, LLE neurovascularly intact, severe pain with movement of LLE Principal Diagnosis L Femoral Neck Fracture Discharge Exam General: A&Ox3. NAD. Cooperative. HEENT: Atraumatic, normocephalic. Anicteric sclera, conjunctive are noninjected. Patient blind. Pulm: CTAB A&P. -wheezes, -rales, -rhonchi. Symmetrical chest rise. No increase work of breathing. No respiratory distress. Cardiac: RRR, -mrg. Radial pulses intact and symmetrical. Abdominal: Nontender, nondistended, soft. BS present. Extremities: Warm, PT pulse intact bilaterally. Severe lower extremity stasis dermatitis present bilaterally, no warmth/erythema. Trace serous drainage. Discharge Data Allergies Allergy/AdvReac Type Severity Reaction Status Date / Time Penicillins Allergy Unknown PT STATES Verified 03/03/19 05:00 "THINK THE DOSE WAS TO HIGH"-CAN'T REMEMBER REACT Consultations 11/07/19 04:06 ED Decision to Admit Stat 11/07/19 07:53 Consult Case Management - Discharge Planning Routine Consult Orthopedic Surgery Routine 11/07/19 10:49 Consult Cardiology Routine 11/07/19 12:56 Consult Wound Care Provider Routine 11/08/19 10:12 Consult Palliative Care Routine 11/08/19 10:39 Consult Anesthesiology Routine Ordered Studies 11/09/19 01:10 arterial duplex LE Routine Hospital Course (1) Closed fracture of left hip: Héctor is a 69-year-old female with a past medical history of hy pertension, hyperlipidemia, blindness, and A. fib who presented after falling in her kitchen at home and being unable to bear weight, and who was found to have a left hip fracture on admitting x-ray. She was admitted for management of closed displaced fracture of the left femoral neck. Closed displaced fracture of the left femoral neck Admitting x-ray showed a moderately displaced transcervical left femoral neck fracture. Orthopedics was consulted but noted that she was at high cardiac risk given her A. fib with episodes of RVR and refusal of pharmacologic therapy. She was also noted to have chronic infection of her feet bilaterally. She was medically managed, and surgical intervention was deferred. Orthopedics noted that left hip hemiarthroplasty could be performed when and if she was medically stable, but she would require treatment for her chronic leg wounds. Overall, they noted that she is a very poor surgical candidate. Intervention was deferred, but she may follow-up as suggested by primary care physician as an outpatient with orthopedics pending her clinical course and medical stability. Plans on discharge were to pursue medical nonoperative treatment, but she could be a potential [facility] candidate in the future. She was discharged to [facility] for further care. Sinus tachycardia, A. fib with RVR Liane has a history of atrial fibrillation with RVR in addition to ventricular arrhythmia. She was noted to be in sinus tachycardia during admission with rates in the 90s, which improved with pain control with Tylenol. Cardiology was consulted. She was found to have some biventricular failure with severe LV and RV dysfunction (February 2019 echo showing EF 25 to 30%) resulting in lower extremity edema. It was recommended that given her biventricular failure and history of atrial fibrillation that she be started on a beta-alis in addition to a blood thinner. This was discussed with the patient who adamantly refused beta-alis and anticoagulation therapy. She was able to verbalize the risks/benefits of both beta-alis and anticoagulation therapy, and the potential risk of harm, stroke, or from her medical conditions if left untreated. These were not started during admission or discharge based on extended conversation with the patient. Digoxin therapy was limited by hyperkalemia. On follow-up discussion she deferred digoxin therapy after her hyperkalemia resolved, although noted that she might be more open to it in the future if she decompensated. She had been seen on prior admission by psychiatry who noted that she had capacity for her medical decisions. She was discharged with follow-up to care home and her primary care physician. Her rates had improved to the 80s to 90s at time of discharge. Multiple open leg wounds/peripheral vascular disease Patient was noted to have multiple open leg wounds with foul smell and purulent discharge on admission. Wound care was consulted, and wound cultures were obtained. She was treated empirically with daptomycin which was narrowed to Keflex after wound cultures showed MSSA. Debridement was performed by wound care. He was noted to have persistent venous stasis changes. A lower artery duplex was obtained which showed multifocal significant stenoses of the left superficial femoral artery and the proximal/mid femoral artery. Some suggestion of a right-sided pelvic arterial stenosis. ABIs could not be performed due to patient intolerance, and distal extremity exam was somewhat limited by her multiple leg wounds. She is not felt to be an interventional candidate. She completed antibiotic treatment during hospital admission, with improvement to her leg swelling and wounds. She will require ongoing wound care and evaluation to be managed by care home. Peripheral vascular disease Patient was noted to have persistent venous stasis and changes of her feet bilaterally as noted above. Hypertension, combined systolic/diastolic CHF: Patient was found to have hypertension and combined systolic and diastolic CHF, cardiomyopathy with severe LV and RV dysfunction, February 2019 echo with EF 25-30%. She was not able to tolerate Entresto due to blood pressure. She declined beta- alis therapy as noted above. She received Lasix during congestion with some improvement in her distal extremity edema, and was agreeable to taking Lasix 40 mg daily on discharge. She is also agreeable to taking lisinopril daily, she is discharged to continue this as outpatient. Hyperkalemia Patient was hyperkalemic during her admission, with supportive care and hydration her potassium normalized by time of discharge. Bedbug infection Prior to admission patient was noted to have bedbug infestation. She was placed on contact precautions, and her clothes and belongings were collected for isolation. He remained clinically well, and contact precautions were lifted during admission. Goals of care Given the patient's illness, and preference to avoid most medical treatments palliative care was consulted during admission. They noted that she identified as a , and her heritage was very important to her and that the patient lived a spiritual life with some homeopathic medicine and rare Western medicine. They noted that while her decision-making ability had been questioned in the past due to some unusual beliefs, she was oriented and was able to express the risks and benefits of decisions for herself and had capacity to do so. She noted that her ultimate goal would be to return home, and was not pleased but agreeable to care home after discharge. Full code. DVT prophylaxis Heparin 5000 units subcu was maintained for DVT prophylaxis during admission. She did not show signs of DVT during admission. Total Time Total Time Spent Total Time Spent (In Minutes): 30 Discharge Plan Discharge Items Patient Disposition: Transfer Group Home Fac Reason For Visit: LEFT HIP FRACTURE Discharge Diagnosis: Closed fracture of the left femoral neck Atrial tachycardia Activity: Per Instructions section Activity Comment: nonweight bearing left leg Non-emergency contact: Primary Care Provider Call non-emergency contact if: you have any medication questions, your symptoms worsen, your pain is worsening, your pain is unusual for you, your pain is concerning for you, you have a fever and your rectal temperature is above 100.4 Follow-up/Referrals: Nathan Briceno DO [Primary Care Provider] - Diet: Heart Healthy Addtl Attending Provider Instructions: You were seen in the hospital for a broken hip. You are being discharged to skilled nursingW with rehab at this time, he will require orthopedic follow-up as noted below. You are noted to have a fast heart rate (atrial fibrillation) during admission,. Due to your fast heart rhythm and chronic foot wounds were not able to have surgical treatment of your hip at this time. You were seen by wound care, and cultures of your leg wounds showed methicillin susceptible staph aureus you are treated with an appropriate course of antibiotics. He will have wound care follow-up at [facility]. Your fast heart rate was discussed with you during admission. You have deferred beta-alis treatment of your heart rate after extended discussion of the risks and benefits. You have deferred digoxin treatment as well at this time, but noted that you would consider in the future. Patients with atrial fibrillation or increased risk of stroke. Anticoagulation was discussed, he prefer not to be on a blood thinner at this time and understand the risks and benefits of this decision. Your heart rate will be followed at [facility], if you develop any palpitations, chest pain, difficulty breathing, lightheadedness, dizziness, or a feeling that you are going to pass out please contact the physician there immediately, or return to the emergency department for reevaluation. A follow-up appointment is being scheduled for you with your primary care provider Dr. Nathan Briceno. This appointment will be arranged through [facility], if you do not receive confirmation of this appointment within 48 hours of discharge please have [facility] contact his office at [phone]. You should have follow-up evaluation with orthopedics once you are medically stable. This appointment will be arranged by [facility] your primary care provider. Please have them contact Dr. Irwin's office as an outpatient for reevaluation once you are doing well at [facility]. If you develop any fevers, chills, sweats, syncope, presyncope, shortness of breath, rash, abdominal pain, worsening pain, hip pain, numbness, tingling, worsening weakness, or other new or concerning symptoms please contact your primary care provider, or contact 101 for reevaluation in the emergency department. Pending Studies at Discharge: No Stand-Alone Forms: My [facility] Skilled Items Patient informed of condition?: Yes DNR: No Discharge Level of Care: Skilled Communicable Disease: No Discharge Prognosis: Stable Lines: None Urinary Catheter: Yes Medications and DC Order Prescriptions: Continued acetaminophen 500 mg Tablet 1,000 mg PO Q6H PRN (Reason: Pain or fever) RF: 0 aspirin 81 mg Tablet,Delayed Release (Dr/Ec) 81 mg PO DAILY Qty: 30 RF: 3 furosemide [Lasix] 40 mg Tablet 40 mg PO DIRECTED RF: 0 lisinopril 5 mg Tablet 5 mg PO DIRECTED RF: 0 Discharge Orders: Discharge Order (Routine); Ordered 11/22/19 Ordered By: Glen Villanueva Admission Data Admit Date/Time: 11/07/19 04:48 Attending Provider: Scott Shin Admit Provider: Kailey Moncada Primary Care Provider: Nathan Briceno Other Providers: Kailey Moncada ; Chet Razo ; Kurtis Anderson ; Kurtis Chase ; Pili Seay ; Madi Higuera ; [facility], ; Annie Monsalve at [place] ; Alf Shah. Other Interventions: Discharge Summary Assessment (RN) Last Done: 11/22/19 13:03 DC Date/Time DO NOT enter until pt leaves facility: 11/22/19 13:56 Supervising Physician Co-Signing Physician Notes I personally examined the patient and verified all song points of history and exam, discussed case, and agree with decision making with Dr Villanueva. Feeling okay about going to [facility] today. No new issues. Vitals noted, in general she is awake and alert pleasant no distress. HEENT normocephalic atraumatic mucous membranes moist. Breathing unlabored no accessory muscle use good effort. Neuro shows no focal deficits, does have her chronic blindness. 1. hip fracture. high cardiac risk for operative intervention. NWB on the left LE. managing pain with motrin and tylenol. Stable for SNF 2. afib/tachycardia. s/p dig, but had hyperkalemia. Pt has declined other medical interventions for this. Her HRs intermittently elevated. Fortunately the further removed she gets from her acute fracture the more stable her heart rate has been 3. cardiomyopathy. Continue home lisinopril and lasix as possible. Would benefit from a beta alis if she allowed, also have attempted to treat with Entresto, but she has declined. 4. cellulitis. Secondary to venous stasis/ulcersnow doing much better. Finished a fairly extended course of antibiotics predominantly with Keflex. Will hold on further antibiotics for now, continue local wound care. Can resume antibiotics if needed. Stable for discharge to [facility]. Resident Activity Tracking Resident Involvement: Resident Care Provided Care Provided: Adult Hospital Medicine
== END 2019-11-22 13:56 | DRG 535 ==
LOC: ED 02:28 → SUATTDRO 04:48 → 2W 04:48

== ENCOUNTER 2019-12-15 13:38 | Inpatient (IN) ==
[2019-12-15] MEDS ORDERED: FUROSEMIDE 40 MG/4 ML VIAL IV STA (14:37)
[2019-12-15] MEDS ORDERED: FUROSEMIDE 10 MG/ML 10 ML VIAL IV STA (14:43)
--- NOTE | 2019-12-15 14:56 | XRay Report ---
XR chest 1V portable HISTORY: evaluate pleural effusions COMPARISON: Chest 11/09/2019. FINDINGS: No pneumothorax. The heart remains moderately enlarged.. Interval development of a right lo wer lobe airspace opacity and a small right pleural effusion. Left lung is clear. IMPRESSION: 1. Interval development of a right lower lobe airspace opacity and a small right pleural effusion. Th is may represent a pneumonia, possibly secondary to aspiration. Follow-up recommended to ensure resol ution. 2. Stable moderate cardiomegaly. ACT 112: Negative or not required by law. Electronically signed by: Iam Moran M.D. 12/15/2019 2:54 PM
[2019-12-15] MEDS ORDERED: CEFEPIME 2,000 MG/20 ML VIAL IV STA (15:24)
[2019-12-15 15:44] LABS: Basophils # (auto) 0.02 K/uL (0-0.2); Basophils % (auto) 0.2 %; Eosinophils # (auto) 0.17 K/uL (0-0.5); Eosinophils % (auto) 1.7 %; Hematocrit (blood only) 38.2 % (37-47); Hemoglobin 11.9 g/dL (12.0-16.0); Immature Granulocytes # (auto) 0.02 K/uL (0.00-0.02); Immature Granulocytes % (auto) 0.2 %; Lymphocytes # (auto) 1.42 K/uL (1.2-3.4); Lymphocytes % (auto) 14.6 %; Mean Corpuscular Hemoglobin 31.4 pg (25-34); Mean Corpuscular Hgb Conc 31.2 g/dL (32-36); Mean Corpuscular Volume 100.8 fL (80-100); Mean Platelet Volume 8.7 fL (7.4-10.4); Monocytes # (auto) 0.96 K/uL (0.11-0.59); Monocytes % (auto) 9.9 %; Neutrophils # (auto) 7.14 K/uL (1.4-6.5); Neutrophils % (auto) 73.4 %; Platelet Count 207 K/uL (130-400); RDW Coefficient of Variation 17.4 % (11.5-14.5); RDW Standard Deviation 61.5 fL (36.4-46.3); Red Blood Count 3.79 M/uL (4.2-5.4); White Blood Count 9.73 K/uL (4.8-10.8)
[2019-12-15 15:56] LABS: INR 1.2 (0.9-1.1); Partial Thromboplastin Time 28.3 Seconds (21.0-31.0); Prothrombin Time 12.5 Seconds (9.0-12.0)
[2019-12-15 16:03] LABS: Albumin Level 2.7 gm/dl (3.4-5.0); BUN Creatinine Ratio 19.5 (10-20); Calcium 8.7 mg/dl (8.5-10.1); Creatinine Clr Calc Pharmacy 29.7 ml/min; Est GFR (African American) 24.9; Est GFR (Non-African American) 21.5
[2019-12-15 16:13] LABS: Albumin Globulin Ratio 0.7 (0.9-2); Bilirubin,Total 1.3 mg/dl (0.2-1); Globulin 4.1 gm/dl (2.5-4.0); Total Protein 6.8 gm/dl (6.4-8.2); Troponin I 0.052 ng/ml (0-0.045)
--- NOTE | 2019-12-15 17:02 | Emergency Department Note ---
Entered by Iam Lim acting as a scribe for History of Present Illness General Chief complaint: Swelling/Edema to Extremity Time Seen by Provider: 12/15/19 13:49 Source: patient Limitations: no limitations History of Present Illness Onset (ago): day(s) (past few days) Location: chest Pain Consistency: + constant Maximum Pain Intensity: 1 Exacerbated By: + other (laying flat) Associated symptoms: + denies other symptoms (increased leg swelling, palpitations), + cough, + nausea/vomiting (nausea) and + other (congestion); no chest pain, no fever/chills (fevers) and no shortness of breath The patient is a 69 year old female who presents to the Emergency Room after being referred by [facility]. She was referred to the ED because of a very low EF, fluid overload, a low blood pressure, tachycardia and dyspnea. The patient states she has had a cough and congestion. The patient states she cannot lie flat as this causes her nausea. She states she has intermittent nausea. The pat ient denies having chest pain, palpitations, SOB, and fevers. EMS states the patient was in A-Fib for at least the past 3 days. Home Medications Home Medications Medication Instructions Recorded Confirmed Type acetaminophen 1,000 mg PO Q8H PRN 06/21/18 12/15/19 History aspirin 81 mg PO DAILY #30 tab 06/26/18 12/15/19 Rx furosemide [Lasix] 60 mg PO BID 11/07/19 12/15/19 History lisinopril 5 mg PO DIRECTED 11/07/19 12/15/19 History acetaminophen 650 mg PO Q6H PRN 12/15/19 12/15/19 History bisacodyl [Dulcolax (bisacodyl)] 10 mg DC DAILY PRN 12/15/19 12/15/19 History ibuprofen 600 mg PO Q6H PRN 12/15/19 12/15/19 History ondansetron HCl [Zofran] 4 mg PO Q6H PRN 12/15/19 12/15/19 History sodium phosphates [Enema] 118 ml DC DAILY PRN 12/15/19 12/15/19 History tramadol 100 mg PO Q6H PRN 12/15/19 12/15/19 History Allergies Allergy/AdvReac Type Severity Reaction Status Date / Time Penicillins Allergy Unknown Unknown Verified 12/15/19 16:02 Past Med/Surg History Medical History Acute combined systolic and diastolic congestive heart failure (Acute) Acute renal insufficiency 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 Goals of care, counseling/discussion HTN (hypertension) (Chronic) Hyperlipemia (Chronic) Hypotension With her hypotension, her Hb is up from prior, and creatinine has bumped significantly in one day so appears to be intravascularly dry - unsure how she will tolerate fluid challenge but may make her tolerate anesthesia better Tachycardia Visual impairment (Chronic) Surgical History No pertinent past surgical history Family History Other No pertinent family history Social History Preferred Language: Icelandic Communication Ability: Effective 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 and A total of 10 systems reviewed and were otherwise negative Physical Exam Vital Signs Vital Signs - 24 hr 12/15/19 13:58 12/15/19 15:06 12/15/19 15:18 Temperature 36.6 C Temperature Source Oral Pulse Rate 86 129 H 137 H Pulse Rate from SpO2 Sensor 135 H 122 H Respiratory Rate 18 20 20 Respiratory Depth Normal Blood Pressure 87/75 L 96/70 L 91/73 L Blood Pressure Mean 79 84 76 Blood Pressure Position Sitting Pulse Oximetry 86 L 95 96 Oxygen Delivery Method Nasal Cannula Oxygen Flow Rate 2 4.5 4.5 Sepsis Recent Fever Within 48 Hours No Sepsis New/Unexplained Change in Mental Status No Sepsis Action Taken by Nursing No Action Required 12/15/19 15:30 12/15/19 15:45 02/26/20 16:01 Temperature Temperature Source Pulse Rate 143 H 125 H 150 H Pulse Rate from SpO2 Sensor 136 H 123 H 131 H Respiratory Rate 25 H 20 20 Respiratory Depth Blood Pressure 90/73 L 97/75 L 109/88 Blood Pressure Mean 77 85 91 Blood Pressure Position Pulse Oximetry 94 94 94 Oxygen Delivery Method Oxygen Flow Rate 4.5 4.5 4.5 Sepsis Recent Fever Within 48 Hours Sepsis New/Unexplained Change in Mental Status Sepsis Action Taken by Nursing 12/15/19 16:15 12/15/19 16:30 12/15/19 17:00 Temperature Temperature Source Pulse Rate 115 H 115 H 134 H Pulse Rate from SpO2 Sensor 112 H 114 H 123 H Respiratory Rate 21 19 21 Respiratory Depth Blood Pressure 101/77 100/79 97/73 L Blood Pressure Mean 87 80 84 Blood Pressure Position Pulse Oximetry 95 95 92 Oxygen Delivery Method Oxygen Flow Rate 4.5 Sepsis Recent Fever Within 48 Hours Sepsis New/Unexplained Change in Mental Status Sepsis Action Taken by Nursing 12/15/19 17:16 12/15/19 17:30 12/15/19 17:47 Temperature Temperature Source Pulse Rate 138 H 159 H 165 H Pulse Rate from SpO2 Sensor 160 H 150 H 147 H Respiratory Rate 18 20 21 Respiratory Depth Blood Pressure 107/72 102/84 87/64 L Blood Pressure Mean 77 89 82 Blood Pressure Position Pulse Oximetry 94 Oxygen Delivery Method Oxygen Flow Rate Sepsis Recent Fever Within 48 Hours Sepsis New/Unexplained Change in Mental Status Sepsis Action Taken by Nursing 12/15/19 18:00 Temperature Temperature Source Pulse Rate 127 H Pulse Rate from SpO2 Sensor 141 H Respiratory Rate 20 Respiratory Depth Blood Pressure 89/58 L Blood Pressure Mean 62 Blood Pressure Position Pulse Oximetry 91 Oxygen Delivery Method Oxygen Flow Rate 4.5 Sepsis Recent Fever Within 48 Hours Sepsis New/Unexplained Change in Mental Status Sepsis Action Taken by Nursing GENERAL: Patient is in no acute distress. HEENT: No acute trauma, normocephalic atraumatic, mucous membranes moist, no nasal congestion, no scleral icterus. NECK: No stridor, no adenopathy, no meningismus, trachea is midline. LUNGS: Diminished breath sounds at the bases. No wheezing. No respiratory distress. Equal breath sounds. HEART: Tachycardic rate with an irregular rhythm. 3/6 systolic murmur. ABDOMEN: Soft, nontender, bowel sounds positive, no hernias, no peritonitis. EXTREMITIES: Significant bilateral pedal edema extending to the thighs with chronic lower extremity skin changes/crusting. NEUROLOGIC: Oriented x 3, no acute motor or sensory deficits, no focal weakness. SKIN: No rash, no jaundice, no diaphoresis. Course Course 1352: The patient was evaluated in room A2, and a complete history and physical examination were performed by me and my resident, Dr. Jacobs. 1432: I spoke to Dr. Conklin - Cardiology. He recommends diuresis and admitting the patient to the hospital. He states the patient's HR is not a concern right now. 1634: Dr. Jacobs discussed the patient's case with Dr. Sorto - [facility] Hospitalist. He will evaluate the patient for further management. Administered Medications Discontinued Medications Furosemide (Lasix) 60 mg IV NOW STA Stop: 12/15/19 14:44 Last Admin: 12/15/19 15:25 Dose: 60 mg Documented by: [id number] Cefepime HCl (Maxipime) 2,000 mg in 20 mls @ 5 mls/min IV NOW STA; Protocol Stop: 12/15/19 15:27 Last Admin: 12/15/19 15:43 Dose: 5 mls/min Documented by: [id number] Medical Decision Making Differential Diagnosis Differential Diagnosis includes but is not limited to CHF, NV, pneumonia, rapid A-Fib, anemia, sepsis, electrolyte imbalance, medical noncompliance. Medical Records Attestation: I reviewed the patient's medical records. The patient had an ECHO done recently which by report had a 13% EF. Chest X-Ray done yesterday by report showed bilateral pleural effusions. Home Medications Current Medication List: was personally reviewed by me Laboratory Data Attestation: I reviewed the patient's lab results. Result diagrams: 12/15/19 15:17 12/15/19 15:17 Lab Results 12/15/19 12/15/19 12/15/19 Range/Units 15:17 15:17 15:17 WBC 9.73 (4.8-10.8) K/uL RBC 3.79 L (4.2-5.4) M/uL Hgb 11.9 L (12.0-16.0) g/dL Hct 38.2 (37-47) % MCV 100.8 H (80-100) fL MCH 31.4 (25-34) pg MCHC 31.2 L (32-36) g/dL RDW Std Deviation 61.5 H (36.4-46.3) fL RDW Coeff of Malia 17.4 H (11.5-14.5) % Plt Count 207 (130-400) K/uL MPV 8.7 (7.4-10.4) fL Immature Gran % (Auto) 0.2 % Neut % (Auto) 73.4 % Lymph % (Auto) 14.6 % Norman % (Auto) 9.9 % Eos % (Auto) 1.7 % Baso % (Auto) 0.2 % Immature Gran # (Auto) 0.02 (0.00-0.02) K/uL Neut # (Auto) 7.14 H (1.4-6.5) K/uL Lymph # (Auto) 1.42 (1.2-3.4) K/uL Norman # (Auto) 0.96 H (0.11-0.59) K/uL Eos # (Auto) 0.17 (0-0.5) K/uL Baso # (Auto) 0.02 (0-0.2) K/uL PT 12.5 H (9.0-12.0) Seconds INR 1.2 H (0.9-1.1) APTT 28.3 (21.0-31.0) Seconds PTT Ratio 1.0 Sodium 137 (136-145) mmol/L Potassium 4.0 D (3.5-5.1) mmol/L Chloride 102 (98-107) mmol/L Carbon Dioxide 29 (21-32) mmol/L Anion Gap 7.0 (3-11) BUN 44 H (7-18) mg/dl Creatinine 2.23 H (0.6-1.2) mg/dl Est Cr Clr Drug Dosing 29.7 ml/min Est GFR ( Amer) 24.9 Est GFR (Non-Af Amer) 21.5 BUN/Creatinine Ratio 19.5 (10-20) Glucose 99 (70-99) mg/dl Lactate (0.4-2.0) mmol/L Calcium 8.7 (8.5-10.1) mg/dl Total Bilirubin 1.3 H (0.2-1) mg/dl AST 10 L (15-37) U/L ALT 10 L (12-78) U/L Alkaline Phosphatase 166 H (45-117) U/L Troponin I 0.052 H* (0-0.045) ng/ml NT-Pro-B Natriuret Pep 91742 H (0-900) pg/ml Total Protein 6.8 (6.4-8.2) gm/dl Albumin 2.7 L (3.4-5.0) gm/dl Globulin 4.1 H (2.5-4.0) gm/dl Albumin/Globulin Ratio 0.7 L (0.9-2) 12/15/19 Range/Units 15:33 WBC (4.8-10.8) K/uL RBC (4.2-5.4) M/uL Hgb (12.0-16.0) g/dL Hct (37-47) % MCV (80-100) fL MCH (25-34) pg MCHC (32-36) g/dL RDW Std Deviation (36.4-46.3) fL RDW Coeff of Malia (11.5-14.5) % Plt Count (130-400) K/uL MPV (7.4-10.4) fL Immature Gran % (Auto) % Neut % (Auto) % Lymph % (Auto) % Norman % (Auto) % Eos % (Auto) % Baso % (Auto) % Immature Gran # (Auto) (0.00-0.02) K/uL Neut # (Auto) (1.4-6.5) K/uL Lymph # (Auto) (1.2-3.4) K/uL Norman # (Auto) (0.11-0.59) K/uL Eos # (Auto) (0-0.5) K/uL Baso # (Auto) (0-0.2) K/uL PT (9.0-12.0) Seconds INR (0.9-1.1) APTT (21.0-31.0) Seconds PTT Ratio Sodium (136-145) mmol/L Potassium (3.5-5.1) mmol/L Chloride (98-107) mmol/L Carbon Dioxide (21-32) mmol/L Anion Gap (3-11) BUN (7-18) mg/dl Creatinine (0.6-1.2) mg/dl Est Cr Clr Drug Dosing ml/min Est GFR ( Amer) Est GFR (Non-Af Amer) BUN/Creatinine Ratio (10-20) Glucose (70-99) mg/dl Lactate 1.1 (0.4-2.0) mmol/L Calcium (8.5-10.1) mg/dl Total Bilirubin (0.2-1) mg/dl AST (15-37) U/L ALT (12-78) U/L Alkaline Phosphatase (45-117) U/L Troponin I (0-0.045) ng/ml NT-Pro-B Natriuret Pep (0-900) pg/ml Total Protein (6.4-8.2) gm/dl Albumin (3.4-5.0) gm/dl Globulin (2.5-4.0) gm/dl Albumin/Globulin Ratio (0.9-2) Imaging Data Radiologist's Impression: Radiology results as stated below per my review and the radiologist's interpretation: XR chest 1V portable HISTORY: evaluate pleural effusions COMPARISON: Chest 11/09/2019. FINDINGS: No pneumothorax. The heart remains moderately enlarged.. Interval development of a right lower lobe airspace opacity and a small right pleural effusion. Left lung is clear. IMPRESSION: 1. Interval development of a right lower lobe airspace opacity and a small right pleural effusion. This may represent a pneumonia, possibly secondary to aspiration. Follow-up recommended to ensure resolution. 2. Stable moderate cardiomegaly. ACT 112: Negative or not required by law. Electronically signed by: Iam Moran M.D. 12/15/2019 2:54 PM ECG Data Attestation: I personally reviewed and interpreted this ECG as follows: Indication: + SOB/dyspnea Rate (beats per minute): 129 Rhythm: + atrial fibrillation (with RVR) ECG Intervals/blocks: + Normal QT-c (at 451) ECG ST segments: + T-wave inversions (laterally) ECG Findings: + PVCs Comparison ECG Date: from (11/14/19) Change: no significant change Blood Pressure Blood Pressure Findings: Low blood pressure Blood Pressure Disposition: further management by hospitalist [facility] Narrative There is no leukocytosis or worrisome anemia. Platelet count was normal. No worrisome coagulopathy. Renal panel testing did show some worsening renal insufficiency with a creatinine of 2.23. No concerning electrolyte abnormality. Lactic acid level was not elevated making severe sepsis less likely. There were a few subtle liver enzyme elevations. BNP was quite elevated consistent with CHF/fluid overload. EKG showed a rapid A. fib, no acute ischemic change. Cardiac troponin was slightly elevated, the troponin elevation is not a new finding. Chest film showed an effusion on the right with a possible consolidation versus some atelectasis. There was no pneumothorax. The patient did refuse a chest CT. The patient presents with increasing edema, low blood pressure, tachycardia and some hypoxia. I did speak immediately to Dr. Conklin of cardiology. He recommended diuresis. No rate control for now. The patient has been medically noncompliant for some time and apparently has been in a rapid A. fib now for weeks if not months. She has a known low ejection fraction and the worsening of the cardiac function is not a surprise given her refusal of cardiac rate control. The patient did receive 60 mg of IV Lasix at the suggestion of the cardiology service. She was given IV cefepime as empiric antibiotic coverage. The patient has been medically noncompliant for some time. Her cardiac function is worsening. She has a very poor ejection fraction, she has increasing pedal and body edema. She presents short of breath, tachycardic and hypoxic. Patient is aware of all her findings. She has refused some of her care in the ED but has allowed other care. She is willing to be hospitalized. She does not want any cardiac rate control. She does not want a CT of her chest. She has agreed to IV diuresis. She has agreed to IV antibiotics for the possibility of pneumonia. Continuous Cardiac Monitoring: An order was placed for continuous cardiac monitoring. The monitor shows a rate of 125 with a rapid A-Fib with PVCs. Impression & Plan Hypotension, Edema, Rapid atrial fibrillation, Fluid overload, JOANIE (acute kidney injury), Medical non-compliance Discharge Plan Visit Data Chief Complaint: Swelling/Edema to Extremity ED Provider: Enio Mcpherson ED Midlevel Provider: Andrew Jacobs Discharge Problem: Hypotension, Edema, Rapid atrial fibrillation, Fluid overload, JOANIE (acute kidney injury), Medical non-compliance Patient Disposition: Being Evaluated by Hospitalist Forms Stand Alone Forms: My [facility] [place] [employer] Prescriptions Prescriptions: No Action acetaminophen 500 mg Tablet 1,000 mg PO Q8H PRN (Reason: Pain or fever) RF: 0 aspirin 81 mg Tablet,Delayed Release (Dr/Ec) 81 mg PO DAILY Qty: 30 RF: 3 acetaminophen 325 mg Tablet 650 mg PO Q6H PRN (Reason: Pain) RF: 0 bisacodyl [Dulcolax (bisacodyl)] 10 mg Suppository 10 mg DC DAILY PRN (Reason: Constipation) RF: 0 Enema 19-7 gram/118 mL Enema 118 ml DC DAILY PRN (Reason: Constipation) RF: 0 ondansetron HCl [Zofran] 4 mg Tablet 4 mg PO Q6H PRN (Reason: Nausea) RF: 0 tramadol 50 mg tablet 100 mg PO Q6H PRN (Reason: Pain) RF: 0 ibuprofen 600 mg Tablet 600 mg PO Q6H PRN (Reason: Pain) RF: 0 furosemide [Lasix] 40 mg Tablet 60 mg PO BID RF: 0 lisinopril 5 mg Tablet 5 mg PO DIRECTED RF: 0 Referrals Referrals: Rory Calderon [Primary Care Provider] - Discharge Problem: Hypotension Qualifiers: Hypotension type: unspecified hypotension type Qualified Code(s): I95.9 - Hyp otension, unspecified Edema Qualifiers: Edema type: unspecified Qualified Code(s): R60.9 - Edema, unspecified Fluid overload Qualifiers: Hypervolemia type: unspecified Qualified Code(s): E87.70 - Fluid overload, unspecified The scribe's documentation has been prepared under my direction and personally reviewed by me in its entirety. I confirm that the note above accurately reflects all work, treatment, procedures, and medical decision making performed by me.
--- NOTE | 2019-12-15 18:53 | History & Physical Report ---
Date of Service December 15, 2019 Assessment & Plan (1) Edema: * Patient with longstanding afib not on anticoagulation presented with edema and was found to be in afib with RVR 129bpm. Recent weight gain from immobility (secondary to L femoral neck fx) and diet/increased sodium intake resulting in acute exacerbation of mixed systolic and diastolic CHF. Weight on discharge 85.7kg on 2. Currently, wt 93.9kg. Lasix 60mg IV x 1 in ER. CXR with RLL opacity and small right effusion with stable moderate cardiomegaly. BNP 62759. Trop 0.052 * Admit telemetry * Daily weights * Strict I&O * ECHO * Cardiology consult -- appreciate input * Lasix 40mg IV BID * Lopressor 2.5mg x 1 -- patient may be agreeable to low dose metoprolol for better rate control after lengthy discussion * Serial troponins -- initially elevated at 0.052 * EKG with CP and in AM * CBC, CMP in AM * US Doppler B/L LE to r/o DVT * Wound RN for LE (2) Acute exacerbation of CHF (congestive heart failure): * Likely secondary to uncontrolled afib with RVR vs cardiorenal -- see above * ECHO February 2019 with normal LV size with severely reduced LV systolic function. EF 25-30%. Global hypokinesis. Mild concentric LVH. Severely dilated RV with reduced systolic function. Severe biatrial dilation. Mild pulm HTN. RSVP 40mmHg. * Repeat ECHO as above (3) Acute kidney injury: * Cr elevated at 2.23 -- baseline appears less than 1.0 * Hold lisinopril in setting of JOANIE, hypotension, volume overload (4) Combined systolic and diastolic heart failure: * See above (5) Rapid atrial fibrillation: * See above * Lopressor 2.5mg x 1 * Would benefit from toprol xl -- patient seemingly more agreeable to initiate after conversation regarding untreated afib with elevated rate and risk of clots as well as acute worsening of heart function (6) Hypertension: * Chronic. Patient hypotensive, 87/66. Did receive IV lasix 60mg x 1 * Hold home lisinopril 5mg in setting of JOANIE (7) Tachycardia: * See above (8) Cardiomyopathy: * See above (9) Hypoxia: * 86% recorded, however patient with significant clubbing and dropped to 74% without oxygen during examination * Likely will need 2step prior to discharge as patient may need oxygen at discharge * Currently 91% on 4.5L via NC * Supplemental O2 to maintain sat >90% (10) Macrocytosis: * MCV noted to be 100.8 * Folate, B12 levels in AM (11) DVT prophylaxis: * Heparin SQ ordered --> patient previously refusing anticoagulation for afib * Will avoid SCDs give LE changes Dispo: from [facility] for rehab. likely to remain in hospital at least 2-3 days. History of Present Illness Chief Complaint: Swelling/Edema Primary Care Provider: Rory Calderon 69 year old female with PMH significant for afib (not on anticoagulation), CHF (systolic and diastolic), PVD, HTN, HLD with recent left hip fracture presented to the emergency room with worsening edema over the past week. She states she has been at [facility] since she was discharged at the beginning of Nov following a left hip fracture that did not undergo intervention secondary to lower extremity wounds and poor surgical candidate due to heart function. She states that over the past week she has had a worsening diet and some family issues going on that she did not want to discuss. She states staff at [facility] kept telling her that she was going to , and became tearful during our conversation. She states she has had Kielbasa x 5 and hot dogs along with roast beef, which is unlike her typical diet with oatmeal, rice, peas and fish. She states she has not had pants on for several days secondary to increased swelling and abdominal fullness. Patient takes Lasix 60mg twice daily as an outpatient. She denies pain, and states she had a bowel movement yesterday. She states she has also had significant swelling in her lower extremities. Reported cough, but denies any sputum production other than usual phlegm. She has been undergoing rehab at [facility] for her hip, and states she has been seen by wound care while there. She states she would not like to continue using tramadol for pain, as it has caused her to see things over the past several days. She would not like to consider anticoagulation at this time, as she states she did not like the way it made her stomach feel. Discussed that if she is not willing to pursue anticoagulation, that she should at least have better rate control to allow her heart time to fill and pump more efficiently. She states they tried metoprolol last admission at the same time as her lisinopril, but that she thinks it was a higher dose and that she may be willing to consider starting that as well During conversation, patient removed nasal cannula, and O2 saturation dropped to 74%. ER Course:: Lasix 60mg IV x1. Cefepime 2gm IV. WBC 9.7k, H/h 11.9/38.2. Plt 207. Na 137. K 4.0. INR 1.2. Tbili 1.3, alk phos 166. BNP 01673. Trop 0.052. CXR with RLL opacity and small R pleural effusion, stable moderate cardiomegaly. Cr 2.23. Allergies Allergy/AdvReac Type Severity Reaction Status Date / Time Penicillins Allergy Unknown Unknown Verified 12/15/19 16:02 Home Medications Home Medications Medication Instructions Recorded Confirmed Type acetaminophen 1,000 mg PO Q8H PRN 06/21/18 12/15/19 History aspirin 81 mg PO DAILY #30 tab 06/26/18 12/15/19 Rx furosemide [Lasix] 60 mg PO BID 11/07/19 12/15/19 History lisinopril 5 mg PO DIRECTED 11/07/19 12/15/19 History acetaminophen 650 mg PO Q6H PRN 12/15/19 12/15/19 History bisacodyl [Dulcolax (bisacodyl)] 10 mg IL DAILY PRN 12/15/19 12/15/19 History ibuprofen 600 mg PO Q6H PRN 12/15/19 12/15/19 History ondansetron HCl [Zofran] 4 mg PO Q6H PRN 12/15/19 12/15/19 History sodium phosphates [Enema] 118 ml IL DAILY PRN 12/15/19 12/15/19 History tramadol 100 mg PO Q6H PRN 12/15/19 12/15/19 History Past Med/Surg History Medical History Acute combined systolic and diastolic congestive heart failure (Acute) Acute renal insufficiency 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 Goals of care, counseling/discussion HTN (hypertension) (Chronic) Hyperlipemia (Chronic) Hypotension With her hypotension, her Hb is up from prior, and creatinine has bumped significantly in one day so appears to be intravascularly dry - unsure how she will tolerate fluid challenge but may make her tolerate anesthesia better Tachycardia Visual impairment (Chronic) Surgical History No pertinent past surgical history Family History Other No pertinent family history Social History Preferred Language: Bangladeshi Communication Ability: Effective 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: No Beliefs That Will Affect Care: None marital status: / Current Living Situation: Snf Other Information That Helps Us Care for You: No Feels Safe at Home: Yes Safety Concerns: Feels Safe At This Time Smoking Status: Former smoker Tobacco Type: cigarettes ; Cigarettes Per Day: 10 ; Do You Dip or Chew Tobacco: No ; Second Hand Exposure: No ; Tobacco Cessation Education Requested by Patient: No Hx Alcohol Use: No Hx Substance Use: No Review of Systems Review of Systems: All systems reviewed & are unremarkable except as noted in HPI & below Constitutional: no fever and no chills Eyes: no diplopia seeing things Ear, Nose, Mouth, Throat: no ear pain and no tinnitus Respiratory: + cough; no dyspnea Cardiovascular: + palpitations and + edema; no chest pain Gastrointestinal: + bloating; no abdominal pain, no nausea, no vomiting, no constipation and no diarrhea/loose stools Genitourinary: no dysuria and no urinary frequency Musculoskeletal: left hip, anterior thigh pain Integumentary: chronic lower extremity ulcers Neurologic: + falls (last month); no headache(s) Psychiatric: + depression and + anxiety Endocrine: no polydipsia and no polyphagia Hematologic / Lymphatic: no night sweats and no problem reported Allergy / Immunological: + cough; no rash Physical Exam Constitutional: WD/WN, vitals as above + ill appearing and + disheveled; no acute distress Eyes: + anicteric sclerae and PERRL ENMT: Ears: no hearing impairment no teeth present mmm Neck: trachea midline, no thyromegaly Respiratory: Auscultation: + breath sounds absent (bilateral bases), + diminished lung sounds and + crackles (RML); no rhonchi Cardiovascular: Rate/Rhythm: + tachycardic and + irregularly irregular Vessels: + JVD Extremities: + edema (2-3+ pitting edema to thigh bilateral lower extremity) Gastrointestinal (Abdomen): Inspection/Auscultation: + abdomen distended, normal bowel sounds and + abdominal edema Percussion/Palpation: + abdomen firm; abdomen nontender Musculoskeletal: Head/Neck/Chest: normocephalic and head atraumatic clubbing of nails left hip -- anterior thigh minimally tender to palpation Skin: extensive hyperkeratotc changes to b/l LE to the knees with scaly non tender to palpation Neurologic: deep tendon reflexes 2+ bilaterally, moves all extremities and awake Psychiatric: Orientation: alert and oriented x 3 poor insight regarding consequences of untreated medical conditions Lymphatic: no cervical or axillary lymphadenopathy Results & Data Vital Signs (Past 12 Hours) Vital Signs Temp Pulse Resp BP Pulse Ox 12/15/19 18:00 127 H 20 89/58 L 91 12/15/19 17:47 165 H 21 87/64 L 12/15/19 17:30 159 H 20 102/84 12/15/19 17:16 138 H 18 107/72 94 12/15/19 17:00 134 H 21 97/73 L 92 12/15/19 16:30 115 H 19 100/79 95 12/15/19 16:15 115 H 21 101/77 95 12/15/19 16:01 150 H 20 109/88 94 12/15/19 15:45 125 H 20 97/75 L 94 12/15/19 15:30 143 H 25 H 90/73 L 94 12/15/19 15:18 137 H 20 91/73 L 96 12/15/19 15:06 129 H 20 96/70 L 95 12/15/19 13:58 36.6 C 86 18 87/75 L 86 L Laboratory Results 12/15/19 12/15/19 12/15/19 Range/Units 15:33 15:17 15:17 WBC (4.8-10.8) K/uL RBC (4.2-5.4) M/uL Hgb (12.0-16.0) g/dL Hct (37-47) % MCV (80-100) fL MCH (25-34) pg MCHC (32-36) g/dL RDW Std Deviation (36.4-46.3) fL RDW Coeff of Malia (11.5-14.5) % Plt Count (130-400) K/uL MPV (7.4-10.4) fL Immature Gran % (Auto) % Neut % (Auto) % Lymph % (Auto) % [place] % (Auto) % Eos % (Auto) % Baso % (Auto) % Immature Gran # (Auto) (0.00-0.02) K/uL Neut # (Auto) (1.4-6.5) K/uL Lymph # (Auto) (1.2-3.4) K/uL [place] # (Auto) (0.11-0.59) K/uL Eos # (Auto) (0-0.5) K/uL Baso # (Auto) (0-0.2) K/uL PT 12.5 H (9.0-12.0) Seconds INR 1.2 H (0.9-1.1) APTT 28.3 (21.0-31.0) Seconds PTT Ratio 1.0 Sodium 137 (136-145) mmol/L Potassium 4.0 D (3.5-5.1) mmol/L Chloride 102 (98-107) mmol/L Carbon Dioxide 29 (21-32) mmol/L Anion Gap 7.0 (3-11) BUN 44 H (7-18) mg/dl Creatinine 2.23 H (0.6-1.2) mg/dl Est Cr Clr Drug Dosing 29.7 ml/min Est GFR ( Amer) 24.9 Est GFR (Non-Af Amer) 21.5 BUN/Creatinine Ratio 19.5 (10-20) Glucose 99 (70-99) mg/dl Lactate 1.1 (0.4-2.0) mmol/L Calcium 8.7 (8.5-10.1) mg/dl Total Bilirubin 1.3 H (0.2-1) mg/dl AST 10 L (15-37) U/L ALT 10 L (12-78) U/L Alkaline Phosphatase 166 H (45-117) U/L Troponin I 0.052 H* (0-0.045) ng/ml NT-Pro-B Natriuret Pep 91128 H (0-900) pg/ml Total Protein 6.8 (6.4-8.2) gm/dl Albumin 2.7 L (3.4-5.0) gm/dl Globulin 4.1 H (2.5-4.0) gm/dl Albumin/Globulin Ratio 0.7 L (0.9-2) 12/15/19 Range/Units 15:17 WBC 9.73 (4.8-10.8) K/uL RBC 3.79 L (4.2-5.4) M/uL Hgb 11.9 L (12.0-16.0) g/dL Hct 38.2 (37-47) % MCV 100.8 H (80-100) fL MCH 31.4 (25-34) pg MCHC 31.2 L (32-36) g/dL RDW Std Deviation 61.5 H (36.4-46.3) fL RDW Coeff of Malia 17.4 H (11.5-14.5) % Plt Count 207 (130-400) K/uL MPV 8.7 (7.4-10.4) fL Immature Gran % (Auto) 0.2 % Neut % (Auto) 73.4 % Lymph % (Auto) 14.6 % [place] % (Auto) 9.9 % Eos % (Auto) 1.7 % Baso % (Auto) 0.2 % Immature Gran # (Auto) 0.02 (0.00-0.02) K/uL Neut # (Auto) 7.14 H (1.4-6.5) K/uL Lymph # (Auto) 1.42 (1.2-3.4) K/uL [place] # (Auto) 0.96 H (0.11-0.59) K/uL Eos # (Auto) 0.17 (0-0.5) K/uL Baso # (Auto) 0.02 (0-0.2) K/uL PT (9.0-12.0) Seconds INR (0.9-1.1) APTT (21.0-31.0) Seconds PTT Ratio Sodium (136-145) mmol/L Potassium (3.5-5.1) mmol/L Chloride (98-107) mmol/L Carbon Dioxide (21-32) mmol/L Anion Gap (3-11) BUN (7-18) mg/dl Creatinine (0.6-1.2) mg/dl Est Cr Clr Drug Dosing ml/min Est GFR ( Amer) Est GFR (Non-Af Amer) BUN/Creatinine Ratio (10-20) Glucose (70-99) mg/dl Lactate (0.4-2.0) mmol/L Calcium (8.5-10.1) mg/dl Total Bilirubin (0.2-1) mg/dl AST (15-37) U/L ALT (12-78) U/L Alkaline Phosphatase (45-117) U/L Troponin I (0-0.045) ng/ml NT-Pro-B Natriuret Pep (0-900) pg/ml Total Protein (6.4-8.2) gm/dl Albumin (3.4-5.0) gm/dl Globulin (2.5-4.0) gm/dl Albumin/Globulin Ratio (0.9-2) Supervising Physician Co-Signing Physician Notes Attending Attestation and Admission note: Pt seen/examined, chart reviewed, admission care plan d/w ELHAM Gill. I agree w/ the song components of her documentation except - pt's presentation c/w ACUTE ON CHRONIC systolic/diastolic CHF. 69yo female - chronic systolic/diastolic CHF - recent hospital stay for left hip fracture with nonoperative Rx - presenting with weight gain, worsening abd distension/LE edema, and rapid HR. Found to be in rapid a.fib upon presentation and markedly volume overloaded with hypoxia. During my ER assessment she had already diuresed nearly 1800cc of urine with 1 dose of IV lasix. During my assessment she kept telling me "I will be ok" and also stated that her a.fib would "just go away." Admitted to dietary indiscretion during my assessment. PMH, PSH, allergies, meds, sochx, famhx, ros - reviewed Vitals - mildly hypotensive, HR>100 (130s during my exam), hypoxic gen - no distress HEENT - visually impaired neck - JVD to the jaw heart - tachy, irregular, s1 s2 lungs - decreased BS both bases abd - distended with edema ext - 2-3+ edema all the way up to the hips skin - iccythyosis of both legs - severe; significant hyperpigmentation of legs; xerosis of most skin surfaces A/P: 1. acute hypoxic resp failure 2nd to decompensated CHF 2. acute/chronic systolic/diastolic CHF - decompensation 2nd to multiple factors - uncontrolled a.fib, poor diet, not taking recommended disease modifying medications, etc 3. rapid a.fib 4. acute renal failure 5. left hip fracture - nonoperative management ongoing Cont lasix diuresis Needs rate control for a.fib - IV lopressor tonight; will need significant encouragement to start and remain on an oral beta alis after discharge labs am does patient have capacity? apparently psych had assessed this on a previous admission and patient deemed WITH capacity. However, seems to lack considerable insight into all of her medical issues. due to not being on appropriate DVT proph in setting of recent hip fracture (patient had refused recommended DVT proph by report) will check dopplers of legs -- r/o DVT Kyaw Sands MD PG Care Time/CCT Total # of Minutes Spent Total Time Spent with Patient: Total time spent is greater than 50% in coordination of care (as documented) at patient's floor/unit and/or counseling patient: Coding Level of Care Code 31008 Initial Inpt Care Lvl 3 Diagnoses Edema R60.9 Edema type: unspecified Acute exacerbation of CHF (congestive heart failure) I50.9 Heart failure type: unspecified Acute kidney injury N17.9 Combined systolic and diastolic heart failure I50.40 Rapid atrial fibrillation I48.91 Hypertension I10 Tachycardia R00.0 Cardiomyopathy I42.9 Hypoxia R09.02 Macrocytosis D75.89 DVT prophylaxis Z29.9 (1) Acute exacerbation of CHF (congestive heart failure) Heart failure type: unspecified Qualified Code(s): I50.9 - Heart failure, unspecified (2) Edema Edema type: unspecified Qualified Code(s): R60.9 - Edema, unspecified
[2019-12-15] MEDS ORDERED: METOPROLOL TARTRATE 1 MG/ML VIAL IV STA ×2 (19:28→21:07)
[2019-12-15] MEDS ORDERED: ACETAMINOPHEN 500 MG TAB PO PRN (21:28)
[2019-12-15] MEDS ORDERED: POLYETHYLENE (MIRALAX) 17 GM PACK PO PRN (21:28)
[2019-12-15] MEDS ORDERED: FUROSEMIDE 40 MG/4 ML VIAL IV SCH (21:28)
[2019-12-15] MEDS ORDERED: ONDANSETRON INJ 2 MG/ML 2 ML VIAL IV PRN (21:28)
[2019-12-15] MEDS: FUROSEMIDE 40 MG in SYRINGE 0 ML IV SCH (23:10)
[2019-12-16 04:03] LABS: Albumin Level 2.5 gm/dl (3.4-5.0); BUN Creatinine Ratio 20.7 (10-20); Calcium 8.1 mg/dl (8.5-10.1); Creatinine Clr Calc Pharmacy 34.6 ml/min; Est GFR (African American) 30.6; Est GFR (Non-African American) 26.4; Potassium 3.6 mmol/L (3.5-5.1)
[2019-12-16 04:04] LABS: Basophils # (auto) 0.01 K/uL (0-0.2); Basophils % (auto) 0.1 %; Eosinophils # (auto) 0.16 K/uL (0-0.5); Eosinophils % (auto) 1.9 %; Hematocrit (blood only) 35.9 % (37-47); Immature Granulocytes # (auto) 0.02 K/uL (0.00-0.02); Immature Granulocytes % (auto) 0.2 %; Lymphocytes # (auto) 1.33 K/uL (1.2-3.4); Lymphocytes % (auto) 15.8 %; Mean Corpuscular Hemoglobin 31.1 pg (25-34); Mean Corpuscular Hgb Conc 30.6 g/dL (32-36); Mean Corpuscular Volume 101.4 fL (80-100); Mean Platelet Volume 8.7 fL (7.4-10.4); Monocytes # (auto) 0.83 K/uL (0.11-0.59); Monocytes % (auto) 9.8 %; Neutrophils # (auto) 6.08 K/uL (1.4-6.5); Neutrophils % (auto) 72.2 %; Platelet Count 216 K/uL (130-400); RDW Coefficient of Variation 17.1 % (11.5-14.5); RDW Standard Deviation 61.3 fL (36.4-46.3); Red Blood Count 3.54 M/uL (4.2-5.4); White Blood Count 8.43 K/uL (4.8-10.8)
[2019-12-16 04:08] LABS: Albumin Globulin Ratio 0.7 (0.9-2); Bilirubin,Total 1.3 mg/dl (0.2-1); Globulin 3.8 gm/dl (2.5-4.0); Total Protein 6.3 gm/dl (6.4-8.2); Troponin I 0.031 ng/ml (0-0.045)
[2019-12-16 05:58] LABS: Appearance Urine Clear (Clear); Bilirubin Urine Negative (Negative); Blood Urine 1+ (Negative); Color Urine Yellow; Glucose Urine UA Negative (Negative); Ketones Urine Negative (Negative); Leukocyte Esterase Urine Negative (Negative); Nitrite Urine Negative (Negative); Protein Urine Negative (Negative); Specific Gravity Urine 1.015 (1.000-1.030); Urobilinogen Urine Negative (Negative)
[2019-12-16 06:16] LABS: Calcium Oxalate Crystals Urine Present (None Prsent)
[2019-12-16 06:17] LABS: Bacteria Urine 1+ (Negative); Epithelial Cell Urine 0-5 /lpf (0-5)
[2019-12-16] MEDS: ASPIRIN 81 MG ECTAB PO SCH (08:40)
[2019-12-16] MEDS: FUROSEMIDE 40 MG in SYRINGE 0 ML IV SCH ×2 (08:40→17:30)
[2019-12-16] MEDS: ENOXAPARIN INJ 40 MG/0.4 ML SYR SQ SCH (08:40)
[2019-12-16 08:50] LABS: Vitamin B12 > 2000 pg/ml (211-911)
[2019-12-16 08:51] LABS: Folate (Folic Acid) 13.62 ng/ml (>5.38)
--- NOTE | 2019-12-16 12:23 | Hospitalist Progress Note ---
Date of Service December 16, 2019 Assessment & Plan (1) Acute exacerbation of CHF (congestive heart failure): * Patient with longstanding afib not on anticoagulation presented with edema and was found to be in afib with RVR 129bpm. Recent weight gain from immobility (secondary to L femoral neck fx) and diet/increased sodium intake resulting in acute exacerbation of mixed systolic and diastolic CHF. Weight on discharge 85.7kg on 11/22. Currently, wt 93.9kg. Lasix 60mg IV x 1 in ER. CXR with RLL opacity and small right effusion with stable moderate cardiomegaly. BNP 70167. Trop 0.052 * Likely secondary to uncontrolled afib with RVR vs cardiorenal * ECHO February 2019 with normal LV size with severely reduced LV systolic function. EF 25-30%. Global hypokinesis. Mild concentric LVH. Severely dilated RV with reduced systolic function. Severe biatrial dilation. Mild pulm HTN. RSVP 40mmHg. * Repeat ECHO with severely reduced systolic function left and right ventricle. Biatrial dilation. Mild-moderate MR, Severe TR. RVSP elevated at 40-50mmHg. Minimal change compared to echo 02/2019 * Cardiology consult -- appreciate input * Continue diuresis with lasix 40mg IV BID. Net output 4450mL. Net negative - 3.4L * Weight improved from 93.9kg to 89.8kg (previously 85.7kg at discharge Nov 2019) . Continue daily weights, strict I&O * Lopressor 2.5mg x 1 ON 12/16 --> unable to tolerate further dosing currently given BP 86/57. Patient may improve following diuresis as noted by Dr. Conklin during last admission -- patient agreeable to low dose metoprolol for better rate control after lengthy discussion * Serial troponin -- initially elevated at 0.052, trended down -- likely secondary to acute decompensation/demand ischemia * EKG with CP and in AM (2) Pneumonia: * CXR on 12/15 with possible atelectasis vs pneumonia. repeat imaging rec * Chest 2 view 12/16 with moderate R pleural effusion, slightly increased in size. R basilar densities persist and may represent atelectasis from pleural effusion or pneumonia. cardiomegaly and mild congestive change * Blood cultures 1/2 with gram negative bacilli --> lactic 1.7. Patient received dose of IV cefepime on 12/15 * Resume cefepime * Follow BCx * Oxygen saturation 94% on 3L currently -- if does not improve with continued diuresis, patient may need oxygen at discharge (3) Edema: * Continue diuresis with lasix 40mg IV BID. Net output 4450mL. Net negative -3.4L * Weight improved from 93.9kg to 89.8kg (previously 85.7kg at discharge Nov 2019) . Continue daily weights, strict I&O * US Doppler NEGATIVE FOR DVT bilateral LE * Wound RN for LE --> continue Amlactin 1gm BID (4) Acute kidney injury: * Cr elevated at 2.23 -- baseline appears less than 1.0 * Improved with diuresis --> Cr 1.88 * Continue to hold lisinopril in setting of JOANIE, hypotension * Continue to monitor labs in AM (5) Rapid atrial fibrillation: * See above * Lopressor 2.5mg x 1 * Patient has been running 110s this morning on monitor and up to the 150s last evening. This afternoon, patients HR 90-low 100s. * May improve with diuresis, however patient agreeable to initiating metoprolol -- will continue conversation as patient unable to tolerate further rate control with current BP 86/57 * Repeated conversation regarding untreated afib with elevated rate and risk of clots as well as acute worsening of heart function (6) Hypoxia: * 86% recorded, however patient with significant clubbing and dropped to 74% without oxygen during examination. 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 Patient hypotensive, 86/57, but asymptomatic. Did receive IV lasix 60mg x 1 * Hold home lisinopril 5mg in setting of JOANIE (9) Tachycardia: * See above (10) Cardiomyopathy: * See above (11) Macrocytosis: * MCV noted to be >100 * Folate, B12 without deficiency (12) Closed left hip fracture: * Non operative management at this time * Per ortho notes --> to follow up after discharge from [facility] * Tylenol prn pain (13) Elevated bilirubin: * Likely related to congestion from volume overload, however patient without abdominal imaging and unilateral effusion * Elevated to 2.2 on 12/14 prior to arrival to ER for admission. Continues to be 1.3 despite diuresis. Alk phos slightly improved but still elevated * US GB ordered (14) DVT prophylaxis: * Heparin SQ ordered --> patient previously refusing anticoagulation for afib * Will avoid SCDs give LE changes Dispo: from [facility] for rehab. likely to remain in hospital at least 2-3 days. Admission and Anticipated Discharge Date Admission Date: December 15, 2019 Supervising Physician Co-Signing Physician Notes Attending Attestation: Chart reviewed in detail, care plan d/w ELHAM Gill. I agree w/ the song components of her documentation with addition of BACTEREMIA - 2nd to GNR - source uncertain. A/P: 1. acute hypoxic resp failure 2nd to decompensated CHF - improving; does have fingernail clubbing so need to assess for home O2 at d/c 2. acute/chronic systolic/diastolic CHF - decompensation 2nd to multiple factors - uncontrolled a.fib, poor diet, not taking recommended disease modifying medications, etc - volume status improving. cont IV lasix. Needs beta blockade - if agreeable. 3. rapid a.fib - improving w/ beta alis 4. acute renal failure - improving with Rx of #2 5. left hip fracture - nonoperative management ongoing 6. bacteremia, 2nd to GNR - source? urine? RLL pneumonia? agree w/ cefepime. follow cultures dopplers of LEs noted to be negative Kyaw Sands MD Subjective Patient denies shortness of breath during examination.. States her swelling in her abdomen is improved from yesterday and she does not feel "as tight". Lengthy discussion was had regarding need for at least rate control, if not both anticoagulation and rate control, for her afib and recent hip fracture with increased risk of clot. Patient continues to decline anticoagulation, but she is agreeable to metoprolol and increasing slowly as tolerated. She states she did not have any abdominal upset last evening with the dose of Lopressor. Discussed findings of positive blood culture and that we will initiate blood cultures and that there is a possibility that she has a pneumonia and that we will get repeat chest imaging to see progression from yesterdays film. Patient states her legs are starting to get dry and cracked and that she has not yet been seen by wound care. She states that they are not as heavy today. Patient agreeable to plan. All questions/concerns addressed. Review of Systems Eyes: legally blind. hx glaucoma Respiratory: + cough; no dyspnea Cardiovascular: + edema; no chest pain Gastrointestinal: + bloating; no abdominal pain, no nausea, no vomiting, no constipation and no diarrhea/loose stools Musculoskeletal: left hip, anterior thigh pain Integumentary: chronic lower extremity ulcers Neurologic: + falls (last month); no headache(s) Psychiatric: + depression and + anxiety Allergy / Immunological: + cough; no rash Physical Exam Constitutional: WD/WN, vitals as above + ill appearing and + disheveled; no acute distress ENMT: Ears: no hearing impairment Neck: trachea midline, no thyromegaly Respiratory: Auscultation: + breath sounds absent (bilateral bases), + diminished lung sounds and + crackles (RML); no rhonchi Cardiovascular: Rate/Rhythm: + tachycardic and + irregularly irregular Vessels: + JVD Extremities: + edema (2-3+ pitting edema to thigh bilateral lower extremity) Gastrointestinal (Abdomen): Inspection/Auscultation: + abdomen distended, normal bowel sounds and + abdominal edema (slightly less) Percussion/Palpation: + abdomen firm; abdomen nontender Musculoskeletal: Head/Neck/Chest: normocephalic and head atraumatic tenderness of palpation anterior L hip Skin: significant severe iccythyosis bilateral lower extremities to the knees. hyperpigmented. increased scaling/cracking today Neurologic: deep tendon reflexes 2+ bilaterally, moves all extremities and awake Psychiatric: Orientation: alert and oriented x 3 Insight: + poor insight Results & Data ([facility]) Vital Signs (Past 12 Hours) Vital Signs Temp Pulse Pulse Resp BP Pulse Ox 12/16/19 11:00 36.6 C 96 H 24 91/56 L 91 12/16/19 08:33 36.7 C 119 H 24 99/61 L 88 L 12/16/19 08:00 110 H 12/16/19 03:20 36.5 C 118 H 20 108/71 90 Laboratory Results 12/16/19 12/16/19 12/16/19 Range/Units 11:43 09:41 03:45 WBC (4.8-10.8) K/uL RBC (4.2-5.4) M/uL Hgb (12.0-16.0) g/dL Hct (37-47) % MCV (80-100) fL MCH (25-34) pg MCHC (32-36) g/dL RDW Std Deviation (36.4-46.3) fL RDW Coeff of Malia (11.5-14.5) % Plt Count (130-400) K/uL MPV (7.4-10.4) fL Immature Gran % (Auto) % Neut % (Auto) % Lymph % (Auto) % [place] % (Auto) % Eos % (Auto) % Baso % (Auto) % Immature Gran # (Auto) (0.00-0.02) K/uL Neut # (Auto) (1.4-6.5) K/uL Lymph # (Auto) (1.2-3.4) K/uL [place] # (Auto) (0.11-0.59) K/uL Eos # (Auto) (0-0.5) K/uL Baso # (Auto) (0-0.2) K/uL Sodium (136-145) mmol/L Potassium (3.5-5.1) mmol/L Chloride (98-107) mmol/L Carbon Dioxide (21-32) mmol/L Anion Gap (3-11) BUN (7-18) mg/dl Creatinine (0.6-1.2) mg/dl Est Cr Clr Drug Dosing ml/min Est GFR ( Amer) Est GFR (Non-Af Amer) BUN/Creatinine Ratio (10-20) Glucose (70-99) mg/dl Lactate 1.7 (0.4-2.0) mmol/L Calcium (8.5-10.1) mg/dl Total Bilirubin (0.2-1) mg/dl AST (15-37) U/L ALT (12-78) U/L Alkaline Phosphatase (45-117) U/L Troponin I 0.029 (0-0.045) ng/ml Total Protein (6.4-8.2) gm/dl Albumin (3.4-5.0) gm/dl Globulin (2.5-4.0) gm/dl Albumin/Globulin Ratio (0.9-2) Triglycerides (0-150) mg/dl Cholesterol (0-200) mg/dl LDL Cholesterol, Calc mg/dl VLDL Cholesterol, Calc mg/dl HDL Cholesterol mg/dl Cholesterol/HDL Ratio Vitamin B12 (211-911) pg/ml Folate (>5.38) ng/ml TSH (0.300-4.500) uIu/ml Urine Color Yellow Urine Appearance Clear (Clear) Urine pH 5.0 (4.5-7.5) Ur Specific [place] 1.015 (1.000-1.030) Urine Protein Negative (Negative) Urine Glucose (UA) Negative (Negative) Urine Ketones Negative (Negative) Urine Blood 1+ H (Negative) Urine Nitrite Negative (Negative) Urine Bilirubin Negative (Negative) Urine Urobilinogen Negative (Negative) Ur Leukocyte Esterase Negative (Negative) Urine RBC 5-10 H (0-4) /hpf Urine WBC 5-10 H (0-5) /hpf Ur Epithelial Cells 0-5 (0-5) /lpf Calcium Oxalate Crystal Present A (None Prsent) Urine Bacteria 1+ H (Negative) Hyaline Casts 5-10 H (0-5) /lpf WBC Casts 1-5 H (0) /lpf 12/16/19 12/16/19 12/16/19 Range/Units 03:16 03:16 03:16 WBC (4.8-10.8) K/uL RBC (4.2-5.4) M/uL Hgb (12.0-16.0) g/dL Hct (37-47) % MCV (80-100) fL MCH (25-34) pg MCHC (32-36) g/dL RDW Std Deviation (36.4-46.3) fL RDW Coeff of Malia (11.5-14.5) % Plt Count (130-400) K/uL MPV (7.4-10.4) fL Immature Gran % (Auto) % Neut % (Auto) % Lymph % (Auto) % [place] % (Auto) % Eos % (Auto) % Baso % (Auto) % Immature Gran # (Auto) (0.00-0.02) K/uL Neut # (Auto) (1.4-6.5) K/uL Lymph # (Auto) (1.2-3.4) K/uL [place] # (Auto) (0.11-0.59) K/uL Eos # (Auto) (0-0.5) K/uL Baso # (Auto) (0-0.2) K/uL Sodium 139 (136-145) mmol/L Potassium 3.6 (3.5-5.1) mmol/L Chloride 100 (98-107) mmol/L Carbon Dioxide 36 H (21-32) mmol/L Anion Gap 3.0 (3-11) BUN 39 H (7-18) mg/dl Creatinine 1.88 H D (0.6-1.2) mg/dl Est Cr Clr Drug Dosing 34.6 ml/min Est GFR ( Amer) 30.6 Est GFR (Non-Af Amer) 26.4 BUN/Creatinine Ratio 20.7 H (10-20) Glucose 91 (70-99) mg/dl Lactate (0.4-2.0) mmol/L Calcium 8.1 L (8.5-10.1) mg/dl Total Bilirubin 1.3 H (0.2-1) mg/dl AST 10 L (15-37) U/L ALT 10 L (12-78) U/L Alkaline Phosphatase 147 H (45-117) U/L Troponin I 0.031 (0-0.045) ng/ml Total Protein 6.3 L (6.4-8.2) gm/dl Albumin 2.5 L (3.4-5.0) gm/dl Globulin 3.8 (2.5-4.0) gm/dl Albumin/Globulin Ratio 0.7 L (0.9-2) Triglycerides 115 (0-150) mg/dl Cholesterol 130 (0-200) mg/dl LDL Cholesterol, Calc 75 mg/dl VLDL Cholesterol, Calc 23 mg/dl HDL Cholesterol 32 mg/dl Cholesterol/HDL Ratio 4 Vitamin B12 > 2000 H (211-911) pg/ml Folate 13.62 (>5.38) ng/ml TSH 0.661 (0.300-4.500) uIu/ml Urine Color Urine Appearance (Clear) Urine pH (4.5-7.5) Ur Specific [place] (1.000-1.030) Urine Protein (Negative) Urine Glucose (UA) (Negative) Urine Ketones (Negative) Urine Blood (Negative) Urine Nitrite (Negative) Urine Bilirubin (Negative) Urine Urobilinogen (Negative) Ur Leukocyte Esterase (Negative) Urine RBC (0-4) /hpf Urine WBC (0-5) /hpf Ur Epithelial Cells (0-5) /lpf Calcium Oxalate Crystal (None Prsent) Urine Bacteria (Negative) Hyaline Casts (0-5) /lpf WBC Casts (0) /lpf 12/16/19 12/15/19 12/15/19 Range/Units 03:16 21:47 20:19 WBC 8.43 (4.8-10.8) K/uL RBC 3.54 L (4.2-5.4) M/uL Hgb 11.0 L (12.0-16.0) g/dL Hct 35.9 L (37-47) % MCV 101.4 H (80-100) fL MCH 31.1 (25-34) pg MCHC 30.6 L (32-36) g/dL RDW Std Deviation 61.3 H (36.4-46.3) fL RDW Coeff of Malia 17.1 H (11.5-14.5) % Plt Count 216 (130-400) K/uL MPV 8.7 (7.4-10.4) fL Immature Gran % (Auto) 0.2 % Neut % (Auto) 72.2 % Lymph % (Auto) 15.8 % [place] % (Auto) 9.8 % Eos % (Auto) 1.9 % Baso % (Auto) 0.1 % Immature Gran # (Auto) 0.02 (0.00-0.02) K/uL Neut # (Auto) 6.08 (1.4-6.5) K/uL Lymph # (Auto) 1.33 (1.2-3.4) K/uL [place] # (Auto) 0.83 H (0.11-0.59) K/uL Eos # (Auto) 0.16 (0-0.5) K/uL Baso # (Auto) 0.01 (0-0.2) K/uL Sodium (136-145) mmol/L Potassium (3.5-5.1) mmol/L Chloride (98-107) mmol/L Carbon Dioxide (21-32) mmol/L Anion Gap (3-11) BUN (7-18) mg/dl Creatinine (0.6-1.2) mg/dl Est Cr Clr Drug Dosing ml/min Est GFR ( Amer) Est GFR (Non-Af Amer) BUN/Creatinine Ratio (10-20) Glucose (70-99) mg/dl Lactate 1.6 (0.4-2.0) mmol/L Calcium (8.5-10.1) mg/dl Total Bilirubin (0.2-1) mg/dl AST (15-37) U/L ALT (12-78) U/L Alkaline Phosphatase (45-117) U/L Troponin I 0.034 (0-0.045) ng/ml Total Protein (6.4-8.2) gm/dl Albumin (3.4-5.0) gm/dl Globulin (2.5-4.0) gm/dl Albumin/Globulin Ratio (0.9-2) Triglycerides (0-150) mg/dl Cholesterol (0-200) mg/dl LDL Cholesterol, Calc mg/dl VLDL Cholesterol, Calc mg/dl HDL Cholesterol mg/dl Cholesterol/HDL Ratio Vitamin B12 (211-911) pg/ml Folate (>5.38) ng/ml TSH (0.300-4.500) uIu/ml Urine Color Urine Appearance (Clear) Urine pH (4.5-7.5) Ur Specific [place] (1.000-1.030) Urine Protein (Negative) Urine Glucose (UA) (Negative) Urine Ketones (Negative) Urine Blood (Negative) Urine Nitrite (Negative) Urine Bilirubin (Negative) Urine Urobilinogen (Negative) Ur Leukocyte Esterase (Negative) Urine RBC (0-4) /hpf Urine WBC (0-5) /hpf Ur Epithelial Cells (0-5) /lpf Calcium Oxalate Crystal (None Prsent) Urine Bacteria (Negative) Hyaline Casts (0-5) /lpf WBC Casts (0) /lpf Diagnostic Findings ECHO There is mild concentric left ventricular hypertrophy left ventricular systolic function is severely reduced the right ventricle is mildly dilated the right ventricular systolic function is moderate to severely reduced the left atrium is severely dilated the right atrium is severely dilated aortic valve sclerosis moderate, without significant aortic valvular stenosis there is mild to moderate mitral regurgitation there is severe tricuspid regurgitation right ventricular systolic pressure is elevated at 40-50mmHg Compared to an echo from 02/2019, minimal change CHEST 2 VIEW IMPRESSION: 1. Moderate right pleural effusion which has slightly increased in size. Right basilar densities persist and may represent atelectasis from the pleural effusion or pneumonia. 2. Cardiomegaly and mild congestive change. BILATERAL LOWER EXTREMITY VENOUS DOPPLER IMPRESSION: No DVT within the right or left lower extremity. PG Care Time/CCT Total # of Minutes Spent Total Time Spent with Patient: Total time spent is greater than 50% in coordination of care (as documented) at patient's floor/unit and/or counseling patient: Coding Level of Care Code 11232 Subseq Hosp Care Lvl 3 Diagnoses Acute exacerbation of CHF (congestive heart failure) I50.9 Heart failure type: unspecified Pneumonia J18.9 Edema R60.9 Edema type: unspecified Acute kidney injury N17.9 Rapid atrial fibrillation I48.91 Hypoxia R09.02 Combined systolic and diastolic heart failure I50.40 Hypertension I10 Tachycardia R00.0 Cardiomyopathy I42.9 Macrocytosis D75.89 Closed left hip fracture S72.002A Elevated bilirubin R17 DVT prophylaxis Z29.9 (1) Acute exacerbation of CHF (congestive heart failure) Heart failure type: unspecified Qualified Code(s): I50.9 - Heart failure, unspecified (2) Edema Edema type: unspecified Qualified Code(s): R60.9 - Edema, unspecified
--- NOTE | 2019-12-16 13:20 | XRay Report ---
XR chest 2V PA/lateral HISTORY: Follow-up right lower lobe opacity. COMPARISON: Chest 12/15/2019. FINDINGS: Moderate right pleural effusion has slightly increased in size. Right basilar densities per sist. There is a trace left pleural effusion. The heart remains enlarged. There is mild central pulmo nary vascular congestion without overt edema. IMPRESSION: 1. Moderate right pleural effusion which has slightly increased in size. Right basilar densities pers ist and may represent atelectasis from the pleural effusion or pneumonia. 2. Cardiomegaly and mild congestive change. ACT 112: Negative or not required by law. Electronically signed by: Iam Moran M.D. 12/16/2019 1:19 PM
[2019-12-16] MEDS: CEFEPIME 2,000 MG in SYRINGE 7.5 ML IV SCH (13:41)
--- NOTE | 2019-12-16 13:57 | Ultrasound Report ---
BILATERAL LOWER EXTREMITY VENOUS DOPPLER HISTORY: afib, edema, no anticoagulation COMPARISON STUDY: None. FINDINGS: There is normal compressibility, flow, and augmentation within the bilateral lower extremit y deep venous systems. IMPRESSION: No DVT within the right or left lower extremity. ACT 112: Negative or not required by law. Electronically signed by: Iam Moran M.D. 12/16/2019 1:56 PM
--- NOTE | 2019-12-16 16:29 | XCELERA ---
[id number] \\[email or web address]\[id number]
--- NOTE | 2019-12-16 18:50 | Cardiology Consultation ---
Date of Consultation December 16, 2019 Assessment & Plan (1) Rapid atrial fibrillation: She developed atrial fibrillation during her last hospitalization. She likely has permanent atrial fibrillation based on the results of her echocardiogram severe dilation of left atrium. She is not overtly symptomatic from the arrhythmia. However, she may have an element of overall decompensation due to the hemodynamic effects and possibly sustained high heart rates. Unfortunately, we have not been able to decide on a medical regimen for rate control that has been suitable to the patient. Diltiazem is an unattractive option given her relatively low blood pressures and adverse effect in the se tting of a cardiomyopathy. We tried digoxin during her last hospitalization. She did develop hyperkalemia which was unlikely to be related to the medication but possibly so. We negotiated the use of metoprolol. However, tonight she states that this medicine is too strong. We could entertain the use of amiodarone, but we do risk converting her to sinus rhythm, and in the absence of anticoagulation puts her at risk for thromboembolic events. She has also refused anticoagulation. During her last hospitalization her heart rates did improve as her clinical status improved. It is possible that her heart rates will get better as she effects a diuresis It became obvious during her last admission that our options were limited. We could continue attempting to bargain with the patient regarding available therapies. (2) Cardiomyopathy: She is severely reduced LV systolic function. Unclear if this is ischemic or nonischemic. However, the clinical appearance absence of anginal symptoms suggests a nonischemic dilated cardiomyopathy. Possibly related to poor overall rate control although she had a cardiomyopathy at the last admission and was not known to have atrial fibrillation up until her hospitalization. It is unclear whether higher heart rates have contributed to reduced LV systolic function or whether her current high heart rates related to her decompensated state. In any event, she appears to be decompensated and will require aggressive diuresis. She did well yesterday and has continued diuresis today. Kidney function is actually improved slightly. We will monitor her electrolytes and kidney function as she continues to diurese over the next few days. She agrees to make an effort to reduce her sodium intake and eat a better diet. (3) Hypotension: She is known to have low blood pressures. During her last admission this was 1 of the relative contraindications which prevented her from undergoing hip surgery. This may be partially related to her cardiomyopathy. It also limits our available therapies. She is not appear to be overtly symptomatic from low blood pressure. History of Present Illness Reason for Consultation: Decompensated congestive heart failure, atrial fibrillation Requesting Physician: Shavon Attending Physician: Kyaw Sands History of Present Illness The patient is a 69-year-old medically complex individual who was recently [facility] after suffering a hip fracture. She had a prolonged hospitalization for lower extremity infections, decompensated heart failure and development of atrial fibrillation. She was eventually discharged to rehabilitation facility but appears to have developed decompensated heart failure. This appears to be related to dietary indiscretion. She seems to have been eating high sodium diet. Her symptoms were manifest primarily by sense of edema but not necessarily breathing difficulty. She is currently denying symptoms of dyspnea. She denies chest pain. She has not generally aware of palpitations. According to the patient, she has been improving with rehabilitation. She states she has been ambulating on 1 leg. She is able to transfer better and has been sitting up a lot. She continues have difficulty with pain control however also has some difficulty with analgesics and is currently describing sense of hallucination. Allergies Allergy/AdvReac Type Severity Reaction Status Date / Time Penicillins Allergy Unknown Unknown Verified 12/15/19 16:02 Home Medications Home Medications Medication Instructions Recorded Confirmed Type acetaminophen 1,000 mg PO Q8H PRN 06/21/18 12/15/19 History aspirin 81 mg PO DAILY #30 tab 06/26/18 12/15/19 Rx furosemide [Lasix] 60 mg PO BID 11/07/19 12/15/19 History lisinopril 5 mg PO DIRECTED 11/07/19 12/15/19 History acetaminophen 650 mg PO Q6H PRN 12/15/19 12/15/19 History bisacodyl [Dulcolax (bisacodyl)] 10 mg DE DAILY PRN 12/15/19 12/15/19 History ibuprofen 600 mg PO Q6H PRN 12/15/19 12/15/19 History ondansetron HCl [Zofran] 4 mg PO Q6H PRN 12/15/19 12/15/19 History sodium phosphates [Enema] 118 ml DE DAILY PRN 12/15/19 12/15/19 History tramadol 100 mg PO Q6H PRN 12/15/19 12/15/19 History Patient History Medical History Acute combined systolic and diastolic congestive heart failure (Acute) Acute renal insufficiency 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 Goals of care, counseling/discussion HTN (hypertension) (Chronic) Hyperlipemia (Chronic) Hypotension With her hypotension, her Hb is up from prior, and creatinine has bumped significantly in one day so appears to be intravascularly dry - unsure how she will tolerate fluid challenge but may make her tolerate anesthesia better Tachycardia Visual impairment (Chronic) Surgical History No pertinent past surgical history Family History Other No pertinent family history Social History Preferred Language: Ukrainian Communication Ability: Effective Administrative Analyst Required: No Beliefs That Will Affect Care: None marital status: / Current Living Situation: Detention Other Information That Helps Us Care for You: No Feels Safe at Home: Yes Safety Concerns: Feels Safe At This Time Smoking Status: Former smoker Tobacco Type: cigarettes ; Cigarettes Per Day: 10 ; Do You Dip or Chew Tobacco: No ; Second Hand Exposure: No ; Tobacco Cessation Education Requested by Patient: No Hx Alcohol Use: No Hx Substance Use: No Review of Systems Review of Systems: All systems reviewed & are unremarkable except as noted in HPI & below Per HPI. Physical Exam Physical Exam: She is alert and oriented x3. Mood affect appear normal. She answered all questions appropriately. HEENT: Sclerae are anicteric. Extraocular movements were intact. Neuro: Cranial nerves intact Lungs: Crackles in the bases bilaterally. No expiratory wheezing. She has normal respiratory effort without use of accessory muscles. There is normal pulm onary excursion. Cardiac: The rhythm was irregular. S1 and S2 were normal. There are no murmurs on examination. The PMI was not markedly displaced on palpation. Extremities: Patient has bilateral radial pulses that are equal in intensity. There is no evidence cyanosis or clubbing. Mild dependent edema in the forearms. Results & Data ([facility]) Vital Signs (Past 12 Hours) Vital Signs Temp Pulse Pulse Resp BP Pulse Ox 12/16/19 17:35 110 H 12/16/19 15:22 36.6 C 105 H 18 86/57 L 94 12/16/19 11:00 36.6 C 96 H 24 91/56 L 91 12/16/19 08:33 36.7 C 119 H 24 99/61 L 88 L 12/16/19 08:00 110 H Laboratory Results Abnormal Lab Results 12/15/19 12/15/19 12/16/19 20:19 21:47 03:16 WBC 8.43 RBC 3.54 L Hgb 11.0 L Hct 35.9 L MCV 101.4 H MCH 31.1 MCHC 30.6 L RDW Std Deviation 61.3 H RDW Coeff of Malia 17.1 H Plt Count 216 MPV 8.7 Immature Gran % (Auto) 0.2 Neut % (Auto) 72.2 Lymph % (Auto) 15.8 [place] % (Auto) 9.8 Eos % (Auto) 1.9 Baso % (Auto) 0.1 Immature Gran # (Auto) 0.02 Neut # (Auto) 6.08 Lymph # (Auto) 1.33 [place] # (Auto) 0.83 H Eos # (Auto) 0.16 Baso # (Auto) 0.01 Sodium Potassium Chloride Carbon Dioxide Anion Gap BUN Creatinine Est Cr Clr Drug Dosing Est GFR ( Amer) Est GFR (Non-Af Amer) BUN/Creatinine Ratio Glucose Lactate 1.6 Calcium Total Bilirubin AST ALT Alkaline Phosphatase Troponin I 0.034 Total Protein Albumin Globulin Albumin/Globulin Ratio Triglycerides Cholesterol LDL Cholesterol, Calc VLDL Cholesterol, Calc HDL Cholesterol Cholesterol/HDL Ratio Vitamin B12 Folate TSH Urine Color Urine Appearance Urine pH Ur Specific [place] Urine Protein Urine Glucose (UA) Urine Ketones Urine Blood Urine Nitrite Urine Bilirubin Urine Urobilinogen Ur Leukocyte Esterase Urine RBC Urine WBC Ur Epithelial Cells Calcium Oxalate Crystal Urine Bacteria Hyaline Casts WBC Casts 12/16/19 12/16/19 12/16/19 03:16 03:16 03:16 WBC RBC Hgb Hct MCV MCH MCHC RDW Std Deviation RDW Coeff of Malia Plt Count MPV Immature Gran % (Auto) Neut % (Auto) Lymph % (Auto) [place] % (Auto) Eos % (Auto) Baso % (Auto) Immature Gran # (Auto) Neut # (Auto) Lymph # (Auto) [place] # (Auto) Eos # (Auto) Baso # (Auto) Sodium 139 Potassium 3.6 Chloride 100 Carbon Dioxide 36 H Anion Gap 3.0 BUN 39 H Creatinine 1.88 H D Est Cr Clr Drug Dosing 34.6 Est GFR ( Amer) 30.6 Est GFR (Non-Af Amer) 26.4 BUN/Creatinine Ratio 20.7 H Glucose 91 Lactate Calcium 8.1 L Total Bilirubin 1.3 H AST 10 L ALT 10 L Alkaline Phosphatase 147 H Troponin I 0.031 Total Protein 6.3 L Albumin 2.5 L Globulin 3.8 Albumin/Globulin Ratio 0.7 L Triglycerides 115 Cholesterol 130 LDL Cholesterol, Calc 75 VLDL Cholesterol, Calc 23 HDL Cholesterol 32 Cholesterol/HDL Ratio 4 Vitamin B12 > 2000 H Folate 13.62 TSH 0.661 Urine Color Urine Appearance Urine pH Ur Specific [place] Urine Protein Urine Glucose (UA) Urine Ketones Urine Blood Urine Nitrite Urine Bilirubin Urine Urobilinogen Ur Leukocyte Esterase Urine RBC Urine WBC Ur Epithelial Cells Calcium Oxalate Crystal Urine Bacteria Hyaline Casts WBC Casts 12/16/19 12/16/19 12/16/19 03:45 09:41 11:43 WBC RBC Hgb Hct MCV MCH MCHC RDW Std Deviation RDW Coeff of Malia Plt Count MPV Immature Gran % (Auto) Neut % (Auto) Lymph % (Auto) [place] % (Auto) Eos % (Auto) Baso % (Auto) Immature Gran # (Auto) Neut # (Auto) Lymph # (Auto) [place] # (Auto) Eos # (Auto) Baso # (Auto) Sodium Potassium Chloride Carbon Dioxide Anion Gap BUN Creatinine Est Cr Clr Drug Dosing Est GFR ( Amer) Est GFR (Non-Af Amer) BUN/Creatinine Ratio Glucose Lactate 1.7 Calcium Total Bilirubin AST ALT Alkaline Phosphatase Troponin I 0.029 Total Protein Albumin Globulin Albumin/Globulin Ratio Triglycerides Cholesterol LDL Cholesterol, Calc VLDL Cholesterol, Calc HDL Cholesterol Cholesterol/HDL Ratio Vitamin B12 Folate TSH Urine Color Yellow Urine Appearance Clear Urine pH 5.0 Ur Specific [place] 1.015 Urine Protein Negative Urine Glucose (UA) Negative Urine Ketones Negative Urine Blood 1+ H Urine Nitrite Negative Urine Bilirubin Negative Urine Urobilinogen Negative Ur Leukocyte Esterase Negative Urine RBC 5-10 H Urine WBC 5-10 H Ur Epithelial Cells 0-5 Calcium Oxalate Crystal Present A Urine Bacteria 1+ H Hyaline Casts 5-10 H WBC Casts 1-5 H Diagnostic Findings Echocardiogram obtained today reveals severely reduced LV systolic function. Severe biatrial dilation. Mild to moderate mitral regurgitation. Elevated estimated pulmonary pressures. ECG Additional Comments: EKG demonstrated atrial fibrillation and rapid ventricular response with nonspecific ST and T-wave changes. PG Care Time/CCT Total # of Minutes Spent Total Time Spent with Patient: Total time spent is greater than 50% in coordination of care (as documented) at patient's floor/unit and/or counseling patient: Coding Level of Care Code 43919 Initial Inpt Care Lvl 3 Diagnoses Rapid atrial fibrillation I48.91 Cardiomyopathy I42.9 Hypotension I95.9 Hypotension type: unspecified hypotension type (1) Hypotension Hypotension type: unspecified hypotension type Qualified Code(s): I95.9 - Hypotension, unspecified
--- NOTE | 2019-12-16 18:54 | Electrocardiogram Report ---
Test Reason : Blood Pressure : / mmHG Vent. Rate : 129 BPM Atrial Rate : 131 BPM P-R Int : 000 ms QRS Dur : 088 ms QT Int : 308 ms P-R-T Axes : 000 -19 139 degrees QTc Int : 451 ms Atrial fibrillation with rapid ventricular response with premature ventricular or aberrantly conducte d complexes Nonspecific T wave abnormality Abnormal ECG When compared with ECG of 14-NOV-2019 18:46, No significant change was found Confirmed by Maycol Conklin ([id number]) on 12/16/2019 6:54:03 PM Referred By: Bebo Corea Confirmed By:Albaro Conklin
[2019-12-16] MEDS: AMMONIUM LACTATE 12% LOTION 225 GM BTL EXT SCH (19:32)
[2019-12-17] MEDS: CEFEPIME 2,000 MG in SYRINGE 7.5 ML IV SCH ×2 (00:16→12:33)
[2019-12-17] MEDS: ACETAMINOPHEN 325 MG TAB PO PRN ×3 (00:16→16:29)
[2019-12-17 06:41] LABS: Albumin Level 2.4 gm/dl (3.4-5.0); BUN Creatinine Ratio 22.1 (10-20); Calcium 8.5 mg/dl (8.5-10.1); Creatinine Clr Calc Pharmacy 44.5 ml/min; Est GFR (African American) 41.9; Est GFR (Non-African American) 36.1; Potassium 3.2 mmol/L (3.5-5.1)
[2019-12-17 06:44] LABS: Albumin Globulin Ratio 0.6 (0.9-2); Globulin 4.2 gm/dl (2.5-4.0); Total Protein 6.6 gm/dl (6.4-8.2)
[2019-12-17 06:48] LABS: Basophils # (auto) 0.01 K/uL (0-0.2); Basophils % (auto) 0.1 %; Eosinophils # (auto) 0.19 K/uL (0-0.5); Eosinophils % (auto) 2.3 %; Hematocrit (blood only) 37.8 % (37-47); Hemoglobin 11.3 g/dL (12.0-16.0); Immature Granulocytes # (auto) 0.02 K/uL (0.00-0.02); Immature Granulocytes % (auto) 0.2 %; Lymphocytes # (auto) 1.36 K/uL (1.2-3.4); Lymphocytes % (auto) 16.4 %; Mean Corpuscular Hemoglobin 30.2 pg (25-34); Mean Corpuscular Hgb Conc 29.9 g/dL (32-36); Mean Corpuscular Volume 101.1 fL (80-100); Monocytes # (auto) 0.69 K/uL (0.11-0.59); Monocytes % (auto) 8.3 %; Neutrophils # (auto) 6.04 K/uL (1.4-6.5); Neutrophils % (auto) 72.7 %; Platelet Count 226 K/uL (130-400); RDW Coefficient of Variation 17.3 % (11.5-14.5); RDW Standard Deviation 62.9 fL (36.4-46.3); Red Blood Count 3.74 M/uL (4.2-5.4); White Blood Count 8.31 K/uL (4.8-10.8)
[2019-12-17] MEDS ORDERED: POTASSIUM CHLORIDE 20 MEQ TABCR PO STA (08:44)
[2019-12-17] MEDS: AMMONIUM LACTATE 12% LOTION 225 GM BTL EXT SCH ×2 (09:07→20:56)
[2019-12-17] MEDS: FUROSEMIDE 40 MG in SYRINGE 0 ML IV SCH ×2 (09:07→16:29)
[2019-12-17] MEDS: ASPIRIN 81 MG ECTAB PO SCH (09:08)
[2019-12-17] MEDS: ENOXAPARIN INJ 40 MG/0.4 ML SYR SQ SCH (09:08)
--- NOTE | 2019-12-17 09:38 | Hospitalist Progress Note ---
Date of Service December 17, 2019 Assessment & Plan (1) Acute exacerbation of CHF (congestive heart failure): * Patient with longstanding afib not on anticoagulation presented with edema and was found to be in afib with RVR 129bpm. Recent weight gain from immobility (secondary to L femoral neck fx) and diet/increased sodium intake resulting in acute exacerbation of mixed systolic and diastolic CHF. Weight on discharge 85.7kg on 11/22. Currently, wt 93.9kg. Lasix 60mg IV x 1 in ER. CXR with RLL opacity and small right effusion with stable moderate cardiomegaly. BNP 92817. Trop 0.052 * Likely secondary to uncontrolled afib with RVR vs cardiorenal * ECHO February 2019 with normal LV size with severely reduced LV systolic function. EF 25-30%. Global hypokinesis. Mild concentric LVH. Severely dilated RV with reduced systolic function. Severe biatrial dilation. Mild pulm HTN. RSVP 40mmHg. * Repeat ECHO with severely reduced systolic function left and right ventricle. Biatrial dilation. Mild-moderate MR, Severe TR. RVSP elevated at 40-50mmHg. Minimal change compared to echo 02/2019 * Cardiology consult -- appreciate input * Continue diuresis with lasix 40mg IV BID. Net output 7.4L. Net negative -5.5L * Weight 88.4kg. 93.9kg on admission. (85.7kg at discharge Nov 22 2019) * Continue daily weights, strict I&O * Will continue to administer lopressor as needed, as tolerated by BP. Given additional 5mg am 12/16 BP was 116/65 * Serial troponin -- initially elevated at 0.052, trended down -- likely secondary to acute decompensation/demand ischemia * Patient agreeable to continue lopressor and eventually metoprolol, as long as someone is able to continually reassure that this is necessary to obtain rate control. (2) Pneumonia: * CXR on 12/15 with possible atelectasis vs pneumonia. repeat imaging rec * Chest 2 view 12/16 with moderate R pleural effusion, slightly increased in size. R basilar densities persist and may represent atelectasis from pleural effusion or pneumonia. cardiomegaly and mild congestive change * Blood cultures prelim 1/2 sets with gram negative bacilli, likely pseudomonas species --> lactic 1.7. Patient received dose of IV cefepime on 12/15 * Resumed cefepime on 12/16 * Oxygen saturation 97% on 4L currently -- if does not improve with continued diuresis, patient may need oxygen at discharge -- continue to monitor * CXR in AM (3) Edema: * Improving, slowly * See above * Continue diuresis with lasix 40mg IV BID * US Doppler NEGATIVE FOR DVT bilateral LE * Wound RN for LE --> continue Amlactin 1gm BID (4) Acute kidney injury: * Cr elevated at 2.23 on admit -- baseline appears less than 1.0 * Improved with diuresis --> Cr 1.45 * Continue to hold lisinopril in setting of JOANIE, hypotension * Continue to monitor labs in AM (5) Rapid atrial fibrillation: * See above. HR currently 106bpm * Lopressor 2.5mg x 1 on admission. Able to tolerate 5mg on 12/17. Will continue with 2.5mg dosing as tolerated. * Patient had been running up to 140-160s on monitor overnight but after 5mg lopressor, running 100-110s this evening * May improve with diuresis, however patient agreeable to initiating metoprolol -- will continue conversation as patient unable to tolerate further rate control with current BP 94/67 * Repeated conversation regarding untreated afib with elevated rate and risk of clots as well as acute worsening of heart function (6) Hypoxia: * 86% recorded, however patient with significant clubbing and dropped to 74% without oxygen during examination. Continued dropped o2 sats -- combination of volume over load and possible pneumonia * Likely will need 2step prior to discharge as patient may need oxygen at discharge * Supplemental O2 to maintain sat >90% * Continue to monitor (7) Combined systolic and diastolic heart failure: * See above (8) Hypertension: * Chronic. Patient hypotensive, 86/57, but asymptomatic. Did receive IV lasix 60mg x 1 * Hold home lisinopril 5mg in setting of JOANIE (9) Tachycardia: * See above (10) Cardiomyopathy: * See above (11) Macrocytosis: * MCV noted to be >100 * Folate, B12 without deficiency (12) Closed left hip fracture: * Non operative management at this time * Per ortho notes --> to follow up after discharge from [facility] * Tylenol prn pain (13) Elevated bilirubin: * Likely related to congestion from volume overload, however patient without abdominal imaging and unilateral effusion * Elevated to 2.2 on 12/14 prior to arrival to ER for admission. Continues to be 1.3 despite diuresis. Alk phos slightly improved but still elevated * US GB ordered -- tbili return to normal. will cancel. Continue to monitor (14) DVT prophylaxis: * Lovenox SQ ordered --> patient previously refusing anticoagulation for afib * Will avoid SCDs give LE changes Dispo: from [facility] for rehab. likely to remain in hospital at least 2-3 days. Admission and Anticipated Discharge Date Admission Date: December 15, 2019 Supervising Physician Co-Signing Physician Notes Attending Attestation: Chart reviewed in detail, care plan d/w ELHAM Gill. I agree w/ the song components of her documentation with addition of BACTEREMIA - 2nd to probable pseudomonas - source uncertain. A/P: 1. acute hypoxic resp failure 2nd to decompensated CHF - cont to improve; does have fingernail clubbing so need to assess for home O2 at d/c 2. acute/chronic systolic/diastolic CHF - decompensation 2nd to multiple factors - uncontrolled a.fib, poor diet, not taking recommended disease modifying medications, etc - volume status improving. cont IV lasix. Needs beta blockade by mouth but has been resistant this admission and on past admission 3. rapid a.fib - cont IV beta alis but she has been resistant to taking oral metoprolol 4. acute renal failure - improving with Rx of #2 5. left hip fracture - nonoperative management ongoing 6. bacteremia, 2nd to pseudomonas - source- RLL pneumonia? skin? cont cefepime. follow cultures until final. Kyaw Sands MD Subjective Patient feeling less swelling in her abdomen. Improvement to legs with addition of amlactin, although patient states she thinks it would be better with more frequent application. States she did not take the lopressor this morning because she was woken up abruptly and not told what was happening and she was told that her heart rate was going out of control and that worsened her anxiety. She states she asked to just be let to calm herself down and her heart rate would come back down. Discussed importance of keeping heart rate controlled so that her heart has more time to fill and pump adequately. Patient agreeable to continuing metoprolol and requested that I remain present for administration. Patient feeling much better with slowed, calming speech. Patient still would not like to have anticoagulation. Agreeable to follow up calls regarding daily weights and lasix adjustments as needed. Tolerable pain to hip with tylenol. Review of Systems Review of Systems: All systems reviewed & are unremarkable except as noted in HPI & below Physical Exam Constitutional: WD/WN, vitals as above + ill appearing; no acute distress Eyes: with glaucoma, legally blind ENMT: Ears: no hearing impairment Neck: trachea midline, no thyromegaly Respiratory: Auscultation: + breath sounds absent (bilateral bases), + diminished lung sounds and + crackles (RML); no rhonchi Cardiovascular: Rate/Rhythm: + tachycardic and + irregularly irregular Vessels: + JVD Extremities: + edema (2-3+ pitting edema to thigh bilateral lower extremity) Gastrointestinal (Abdomen): Inspection/Auscultation: + abdomen distended, normal bowel sounds and + abdominal edema (improving) Percussion/Palpation: + abdomen firm (improving); abdomen nontender Musculoskeletal: Head/Neck/Chest: normocephalic and head atraumatic Neurologic: deep tendon reflexes 2+ bilaterally, moves all extremities and awake Psychiatric: Orientation: alert and oriented x 3 Insight: + poor insight Lymphatic: no cervical or axillary lymphadenopathy Results & Data ([facility]) Vital Signs (Past 12 Hours) Vital Signs Temp Pulse Resp BP Pulse Ox 12/17/19 07:08 36.9 C 105 H 20 112/76 97 12/17/19 03:48 36.5 C 119 H 20 116/85 94 12/16/19 23:37 36.7 C 74 20 119/65 94 Laboratory Results 12/17/19 12/17/19 Range/Units 05:35 05:35 WBC 8.31 (4.8-10.8) K/uL RBC 3.74 L (4.2-5.4) M/uL Hgb 11.3 L (12.0-16.0) g/dL Hct 37.8 (37-47) % MCV 101.1 H (80-100) fL MCH 30.2 (25-34) pg MCHC 29.9 L (32-36) g/dL RDW Std Deviation 62.9 H (36.4-46.3) fL RDW Coeff of Malia 17.3 H (11.5-14.5) % Plt Count 226 (130-400) K/uL MPV 9.0 (7.4-10.4) fL Immature Gran % (Auto) 0.2 % Neut % (Auto) 72.7 % Lymph % (Auto) 16.4 % [place] % (Auto) 8.3 % Eos % (Auto) 2.3 % Baso % (Auto) 0.1 % Immature Gran # (Auto) 0.02 (0.00-0.02) K/uL Neut # (Auto) 6.04 (1.4-6.5) K/uL Lymph # (Auto) 1.36 (1.2-3.4) K/uL [place] # (Auto) 0.69 H (0.11-0.59) K/uL Eos # (Auto) 0.19 (0-0.5) K/uL Baso # (Auto) 0.01 (0-0.2) K/uL Sodium 140 (136-145) mmol/L Potassium 3.2 L (3.5-5.1) mmol/L Chloride 99 (98-107) mmol/L Carbon Dioxide 35 H (21-32) mmol/L Anion Gap 6.0 (3-11) BUN 32 H (7-18) mg/dl Creatinine 1.45 H D (0.6-1.2) mg/dl Est Cr Clr Drug Dosing 44.5 ml/min Est GFR ( Amer) 41.9 Est GFR (Non-Af Amer) 36.1 BUN/Creatinine Ratio 22.1 H (10-20) Glucose 110 H (70-99) mg/dl Calcium 8.5 (8.5-10.1) mg/dl Total Bilirubin 1.0 (0.2-1) mg/dl AST 13 L (15-37) U/L ALT 10 L (12-78) U/L Alkaline Phosphatase 144 H (45-117) U/L Total Protein 6.6 (6.4-8.2) gm/dl Albumin 2.4 L (3.4-5.0) gm/dl Globulin 4.2 H (2.5-4.0) gm/dl Albumin/Globulin Ratio 0.6 L (0.9-2) PG Care Time/CCT Total # of Minutes Spent Total Time Spent with Patient: Total time spent is greater than 50% in coordination of care (as documented) at patient's floor/unit and/or counseling patient: Coding Level of Care Code 66540 Subseq Hosp Care Lvl 3 Diagnoses Acute exacerbation of CHF (congestive heart failure) I50.9 Heart failure type: unspecified Pneumonia J18.9 Edema R60.9 Edema type: unspecified Acute kidney injury N17.9 Rapid atrial fibrillation I48.91 Hypoxia R09.02 Combined systolic and diastolic heart failure I50.40 Hypertension I10 Tachycardia R00.0 Cardiomyopathy I42.9 Macrocytosis D75.89 Closed left hip fracture S72.002A Elevated bilirubin R17 DVT prophylaxis Z29.9 (1) Acute exacerbation of CHF (congestive heart failure) Heart failure type: unspecified Qualified Code(s): I50.9 - Heart failure, unspecified (2) Edema Edema type: unspecified Qualified Code(s): R60.9 - Edema, unspecified
[2019-12-17] MEDS ORDERED: METOPROLOL TARTRATE 1 MG/ML VIAL IV STA (09:49)
--- NOTE | 2019-12-17 16:19 | Heart Failure Progress Note ---
Date of Service December 17, 2019 Assessment & Plan (1) Combined systolic and diastolic heart failure: (2) Cardiomyopathy: (3) Venous stasis dermatitis of both lower extremities: (4) Atrial fibrillation: (5) Medical non-compliance: Plan: Exacerbation likely multifactorial- uncontrolled afib, cardiomyopathy, poor compliance, dietary indiscretion. She is responding well to current diuretic therapy. She is negative 5.5 L so far and her weight is trending down. Goal of negative 1-2 L per day. Kidney function improving with diuretics. Continue close monitoring. Daily standing weights. Strict I&Os. Low sodium diet. Repeat echocardiogram demonstrates long standing severe biventricular systolic dysfunction. EF 20-25%. Patient is not currently on guideline based therapy. Historically patient has been non-compliant on occasion and has refused many medications. She was agreeable to low dose Metoprolol today which she did receive. Other rate control options limited. Hopefully if we can improve her rate control as this is likely a contributing factor to her decompensation. If tolerated, would recommend metoprolol succinate on discharge for heart failure benefits. Lisinopril on hold secondary to JOANIE and hypotension. Recommend follow up with [facility] heart failure program if the patient is agreeable. Primary service feels she would be agreeable to telephone updates and remote weight checks at [facility] at a minimum. Will continue to follow along during hospitalization. Subjective Ms. Arreguin has been referred to the [facility] heart failure program by ELHAM Howard. I have met the patient during previous hospitalizations and she was not interested in following with the program at that time. Now that she is at the [facility] for rehab she has been more compliant with her medications and may be more receptive to the program. At the time of my visit today patient was quite drowsy and not able to participate in conversation. No family members available at the time. She appears to be comfortable at rest. Results & Data Vital Signs (Past 12 Hours) Vital Signs Temp Pulse Pulse Resp BP BP Pulse Ox 12/17/19 15:39 97.9 F 100 H 20 96/62 L 92 12/17/19 11:53 97.9 F 104 H 17 100/68 96 12/17/19 11:51 133 H 103/68 12/17/19 07:08 98.4 F 105 H 20 112/76 97 PG Care Time/CCT Total # of Minutes Spent Total Time Spent with Patient: Total time spent is greater than 50% in coordination of care (as documented) at patient's floor/unit and/or counseling patient: Coding Level of Care Code None Diagnoses Combined systolic and diastolic heart failure I50.40 Cardiomyopathy I42.9 Venous stasis dermatitis of both lower extremities I87.2 Atrial fibrillation I48.91 Medical non-compliance Z91.19
--- NOTE | 2019-12-17 17:29 | Cardiology Progress Note ---
Date of Service December 17, 2019 Assessment & Plan (1) Combined systolic and diastolic heart failure: (2) Cardiomyopathy: She continues affect a good diuresis. This may be the only intervention available to us as she has refused other medical therapy. However, this is likely to improve her symptoms the most. Renal function and electrolytes appear to be stable. (3) Venous stasis dermatitis of both lower extremities: (4) Atrial fibrillation: Ventricular rates continue to be high. However, she has refused most rate control medications. As noted previously metoprolol would be the optimal choice. Heart efforts at initiating this event compromise both by her degree of hypotension and refusal of medications. Hopefully as her volume status improves her ventricular rates will improve as well. (5) Medical non-compliance: Admission and Anticipated Discharge Date Admission Date: December 15, 2019 Subjective A 68 the patient claims to be feeling better. She has some difficulty characterizing that statement but in any event her breathing seems to be stable and she has appreciated some reduced edema. Review of Systems Review of Systems: Per HPI. No symptoms of chest discomfort. Hip pain improved. No palpitations. Physical Exam Physical Exam: She is alert and oriented x3. Mood affect appear normal. She answered all questions appropriately. HEENT: Sclerae are anicteric. Extraocular movements were intact. Neuro: Cranial nerves intact Lungs: Crackles in the bases bilaterally. No expiratory wheezing. She has normal respiratory effort without use of accessory muscles. There is normal pulmonary excursion. Cardiac: The rhythm was irregular. S1 and S2 were normal. There are no murmurs on examination. The PMI was not markedly displaced on palpation. Extremities: Patient has bilateral radial pulses that are equal in intensity. There is no evidence cyanosis or clubbing. Mild dependent edema in the forearms. Results & Data ([facility]) Vital Signs (Past 12 Hours) Vital Signs Temp Pulse Pulse Resp BP BP Pulse Ox 12/17/19 16:00 133 H 12/17/19 15:39 36.6 C 100 H 20 96/62 L 92 12/17/19 11:53 36.6 C 104 H 17 100/68 96 12/17/19 11:51 133 H 103/68 12/17/19 07:08 36.9 C 105 H 20 112/76 97 Laboratory Results Abnormal Lab Results 12/17/19 12/17/19 05:35 05:35 WBC 8.31 RBC 3.74 L Hgb 11.3 L Hct 37.8 MCV 101.1 H MCH 30.2 MCHC 29.9 L RDW Std Deviation 62.9 H RDW Coeff of Malia 17.3 H Plt Count 226 MPV 9.0 Immature Gran % (Auto) 0.2 Neut % (Auto) 72.7 Lymph % (Auto) 16.4 [place] % (Auto) 8.3 Eos % (Auto) 2.3 Baso % (Auto) 0.1 Immature Gran # (Auto) 0.02 Neut # (Auto) 6.04 Lymph # (Auto) 1.36 [place] # (Auto) 0.69 H Eos # (Auto) 0.19 Baso # (Auto) 0.01 Sodium 140 Potassium 3.2 L Chloride 99 Carbon Dioxide 35 H Anion Gap 6.0 BUN 32 H Creatinine 1.45 H D Est Cr Clr Drug Dosing 44.5 Est GFR ( Amer) 41.9 Est GFR (Non-Af Amer) 36.1 BUN/Creatinine Ratio 22.1 H Glucose 110 H Calcium 8.5 Total Bilirubin 1.0 AST 13 L ALT 10 L Alkaline Phosphatase 144 H Total Protein 6.6 Albumin 2.4 L Globulin 4.2 H Albumin/Globulin Ratio 0.6 L PG Care Time/CCT Total # of Minutes Spent Total Time Spent with Patient: Total time spent is greater than 50% in coordination of care (as documented) at patient's floor/unit and/or counseling patient: Coding Level of Care Code 27346 Subseq Hosp Care Lvl 2 Diagnoses Combined systolic and diastolic heart failure I50.40 Cardiomyopathy I42.9 Venous stasis dermatitis of both lower extremities I87.2 Atrial fibrillation I48.91 Medical non-compliance Z91.19
[2019-12-18] MEDS: ACETAMINOPHEN 325 MG TAB PO PRN ×2 (00:02→17:45)
[2019-12-18] MEDS: CEFEPIME 2,000 MG in SYRINGE 7.5 ML IV SCH ×2 (00:03→13:25)
[2019-12-18 07:00] LABS: Hematocrit (blood only) 40.3 % (37-47); Mean Corpuscular Hemoglobin 30.3 pg (25-34); Mean Corpuscular Hgb Conc 29.8 g/dL (32-36); Mean Corpuscular Volume 101.8 fL (80-100); Mean Platelet Volume 8.9 fL (7.4-10.4); Platelet Count 217 K/uL (130-400); RDW Coefficient of Variation 17.1 % (11.5-14.5); RDW Standard Deviation 62.5 fL (36.4-46.3); Red Blood Count 3.96 M/uL (4.2-5.4); White Blood Count 9.47 K/uL (4.8-10.8)
[2019-12-18 07:06] LABS: Albumin Level 2.5 gm/dl (3.4-5.0); BUN Creatinine Ratio 21.4 (10-20); Calcium 8.8 mg/dl (8.5-10.1); Creatinine Clr Calc Pharmacy 50.9 ml/min; Est GFR (African American) 49.2; Est GFR (Non-African American) 42.4; Potassium 3.6 mmol/L (3.5-5.1)
[2019-12-18 07:08] LABS: Albumin Globulin Ratio 0.6 (0.9-2); Bilirubin,Total 1.3 mg/dl (0.2-1); Globulin 4.2 gm/dl (2.5-4.0); Phosphorus 2.5 mg/dl (2.5-4.9); Total Protein 6.7 gm/dl (6.4-8.2)
[2019-12-18] MEDS: FUROSEMIDE 40 MG in SYRINGE 0 ML IV SCH (07:51)
[2019-12-18] MEDS: ENOXAPARIN INJ 40 MG/0.4 ML SYR SQ SCH (07:51)
[2019-12-18] MEDS: ASPIRIN 81 MG ECTAB PO SCH (07:51)
[2019-12-18] MEDS: AMMONIUM LACTATE 12% LOTION 225 GM BTL EXT SCH ×2 (07:52→20:59)
[2019-12-18] MEDS ORDERED: acetaZOLAMIDE 250 MG in SYRINGE 0 ML IV ONE ×2 (09:00→09:45)
--- NOTE | 2019-12-18 09:26 | Hospitalist Progress Note ---
Date of Service December 18, 2019 Assessment & Plan (1) Acute exacerbation of CHF (congestive heart failure): * Patient with longstanding afib not on anticoagulation presented with edema and was found to be in afib with RVR 129bpm. Recent weight gain from immobility (secondary to L femoral neck fx) and diet/increased sodium intake resulting in acute exacerbation of mixed systolic and diastolic CHF. Weight on discharge 85.7kg on 11/22. Currently, wt 93.9kg. Lasix 60mg IV x 1 in ER. CXR with RLL opacity and small right effusion with stable moderate cardiomegaly. BNP 65147. Trop 0.052, trended down (likely secondary to acute decomp/demand ischemia) * Likely secondary to uncontrolled afib with RVR vs cardiorenal * ECHO February 2019 with normal LV size with severely reduced LV systolic function. EF 25-30%. Global hypokinesis. Mild concentric LVH. Severely dilated RV with reduced systolic function. Severe biatrial dilation. Mild pulm HTN. RSVP 40mmHg. * Repeat ECHO with severely reduced systolic function left and right ventricle. Biatrial dilation. Mild-moderate MR, Severe TR. RVSP elevated at 40-50mmHg. Minimal change compared to echo 02/2019 * Cardiology consult * Continued diuresis with lasix 40mg IV BID. * Repeat CXR without evidence of congestive failure, advanced emphysema and cardiomegaly. mod R pleural effusion * Net output -9L, net negative -7.1L * Wt currently 88.9kg. * Lasix 40mg IV BID (on 60mg BID outpatient) -- given AM dose but evening dose held. Given diamox 250mg x 1 for CO2 39 on AM labs * Continue daily weights, I&O * HR >200 today -- given additional lopressor. Pt running 110-130. Ordered additional lopressor * Continue to administer Lopressor as needed, as tolerated by BP --> Given additional 5mg am 12/16 BP was 116/65. Lopressor 5mg x 2 on for HR >200. * Going to start toprol XL 25mg in AM. Patient agreeable to continue lopressor and eventually metoprolol per multiple conversations, but does require continued reassurance regarding necessity to obtain rate control. (2) Pneumonia: * CXR on 12/15 with possible atelectasis vs pneumonia. repeat imaging rec * Chest 2 view 12/16 with moderate R pleural effusion, slightly increased in size. R basilar densities persist and may represent atelectasis from pleural effusion or pneumonia. cardiomegaly and mild congestive change * Blood cultures prelim 1/2 sets with gram negative bacilli, likely pseudomonas species --> lactic 1.7. Patient received dose of IV cefepime on 12/15 * Resumed cefepime on 12/16 * Oxygen saturation 91% on 3L currently -- had been requiring 4L -- titrate O2 to only maintain O2 sat >88% as she CO2 retention * CXR as above (3) Edema: * Improving * See above * US Doppler NEGATIVE FOR DVT bilateral LE * Wound RN for LE --> continue Amlactin 1gm BID (4) Acute kidney injury: * Cr elevated at 2.23 on admit -- baseline appears less than 1.0 * Continues to improve despite diuresis with lasix as above --> Cr 1.27 * Continue to hold lisinopril in setting of JOANIE, hypotension * Continue to monitor labs in AM (5) Rapid atrial fibrillation: * See above. HR currently 106bpm * Lopressor 2.5mg x 1 on admission. Able to tolerate 5mg on 12/17. Received 5mg IV x 2 on -- additional dose ordered for evening. Patient had been up in 200s at one point while being repositioned * Toprol XL 25mg in AM * Repeated conversation regarding untreated afib with elevated rate and risk of clots as well as acute worsening of heart function (6) Hypoxia: * 86% recorded, however patient with significant clubbing and dropped to 74% without oxygen during examination. Continued dropped o2 sats -- combination of volume over load and possible pneumonia * Likely will need 2step prior to discharge as patient may need oxygen at discharge * Supplemental O2 to maintain sat >88% * Continue to monitor (7) Combined systolic and diastolic heart failure: * See above (8) Hypertension: * Chronic. Patient hypotensive, 89/57, but asymptomatic. * Hold home lisinopril 5mg in setting of JOANIE (9) Tachycardia: * See above (10) Cardiomyopathy: * See above (11) Macrocytosis: * MCV noted to be >100 * Folate, B12 without deficiency (12) Closed left hip fracture: * Non operative management at this time * Per ortho notes --> to follow up after discharge from [facility] * Tylenol prn pain (13) Elevated bilirubin: * Likely related to congestion from volume overload, however patient without abdominal imaging and unilateral effusion * Elevated to 2.2 on 12/14 prior to arrival to ER for admission. Continues to be 1.3 despite diuresis. Alk phos slightly improved but still elevated * US GB ordered -- Tbili return to normal and was cancelled. however elevated to 1.3 on repeat. Patient would not like US at this time (14) DVT prophylaxis: * Lovenox SQ ordered --> patient previously refusing anticoagulation for afib * Will avoid SCDs give LE changes Dispo: from [facility] for rehab. likely to remain in hospital at least 2-3 days. Admission and Anticipated Discharge Date Admission Date: December 15, 2019 Supervising Physician Co-Signing Physician Notes Attending Attestation: Chart reviewed in detail, care plan d/w ELHAM Gill. I agree w/ the song components of her documentation with addition of BACTEREMIA - 2nd to pseudomonas. A/P: 1. acute hypoxic resp failure 2nd to decompensated CHF - ongoing improvement; does have fingernail clubbing so need to assess for home O2 at d/c; suspect she may need such 2. acute/chronic systolic/diastolic CHF - decompensation 2nd to multiple factors - uncontrolled a.fib, poor diet, not taking recommended disease modifying medications, etc - volume status improving but not back to baseline dry weight. cont IV lasix. Needs beta blockade by mouth but cont to be resistant this admission much like on her past admission 3. rapid a.fib - cont IV beta alis but she has been resistant to taking oral metoprolol 4. acute renal failure - improving with Rx of #2 5. left hip fracture - nonoperative management ongoing 6. bacteremia, 2nd to pseudomonas - source- RLL pneumonia? skin? cont cefepime but could transition to oral quinolone at any time to complete total 14 days of Rx strongly consider palliative care consultation given bed-bound status, noncompliance with medical recommendations, severe CHF, etc. Kyaw Sands MD Subjective Patient states her breathing feels a little better today. Product Decreased abdominal fullness. Legs feeling better. States she has only had one bowel movement yesterday and she is usually able to have 3 bowel movements per day regularly. Declines wanting to have imaging of her abdomen at this time. Some frustrations with not being able to be turned and positioned more slowly. Declined diamox this morning but was able to be given by RN Robert. Upon entering room, patient's HR had been up to 200s, but was in the 150-160s. Present for administration of metoprolol. Again discussed continuing to attempt heart rate control. Patient agreeable. Review of Systems Review of Systems: All systems reviewed & are unremarkable except as noted in HPI & below Physical Exam Physical Exam: Constitutional WD/WN, vitals as above, no acute distress Eyes with glaucoma, legally blind ENMT Ears: no hearing impairment Neck trachea midline, no thyromegaly Respiratory Auscultation: + breath sounds absent (bilateral bases), + diminished lung sounds and + crackles (RML); no rhonchi Cardiovascular Rate/Rhythm: + tachycardic and + irregularly irregular Vessels: + JVD Extremities: edema improved to b/l LE. Still with pitting edema of upper thighs Gastrointestinal (Abdomen) Inspection/Auscultation: + abdomen distention (improved), normal bowel sounds and + abdominal edema (improving) Percussion/Palpation: + abdomen firm (improving); abdomen nontender Musculoskeletal Head/Neck/Chest: normocephalic and head atraumatic Tender to palpation left anterior pelvic region Neurologic deep tendon reflexes 2+ bilaterally, moves all extremities and awake Psychiatric Orientation: alert and oriented x 3 Insight: + poor insight Skin significant iccythyosis bilateral lower extremities to the knees. hyperpigmented. improved with amlactin. Results & Data ([facility]) Vital Signs (Past 12 Hours) Vital Signs Temp Pulse Pulse Resp BP Pulse Ox 12/18/19 07:44 37.1 C 116 H 17 119/69 100 12/18/19 03:30 36.5 C 116 H 19 95/60 L 95 12/18/19 00:00 36.4 C L 105 H 20 98/68 L 96 Laboratory Results 12/18/19 12/18/19 12/18/19 Range/Units 09:10 06:05 06:05 WBC 9.47 (4.8-10.8) K/uL RBC 3.96 L (4.2-5.4) M/uL Hgb 12.0 (12.0-16.0) g/dL Hct 40.3 (37-47) % MCV 101.8 H (80-100) fL MCH 30.3 (25-34) pg MCHC 29.8 L (32-36) g/dL RDW Std Deviation 62.5 H (36.4-46.3) fL RDW Coeff of Malia 17.1 H (11.5-14.5) % Plt Count 217 (130-400) K/uL MPV 8.9 (7.4-10.4) fL VBG pH 7.40 (7.36-7.41) VBG pCO2 63 H (38-50) mmHg VBG pO2 44 mmHg VBG HCO3 39 mmol/L VBG O2 Saturation 77.2 % VBG Base Excess 11.2 mEq/L Barometric Pressure 729.5 mm/Hg Sodium 139 (136-145) mmol/L Potassium 3.6 (3.5-5.1) mmol/L Chloride 98 (98-107) mmol/L Carbon Dioxide 39 H (21-32) mmol/L Anion Gap 2.0 L (3-11) BUN 27 H (7-18) mg/dl Creatinine 1.27 H (0.6-1.2) mg/dl Est Cr Clr Drug Dosing 50.9 ml/min Est GFR ( Amer) 49.2 Est GFR (Non-Af Amer) 42.4 BUN/Creatinine Ratio 21.4 H (10-20) Glucose 82 (70-99) mg/dl Calcium 8.8 (8.5-10.1) mg/dl Phosphorus 2.5 (2.5-4.9) mg/dl Total Bilirubin 1.3 H (0.2-1) mg/dl AST 15 (15-37) U/L ALT 13 (12-78) U/L Alkaline Phosphatase 152 H (45-117) U/L Total Protein 6.7 (6.4-8.2) gm/dl Albumin 2.5 L (3.4-5.0) gm/dl Globulin 4.2 H (2.5-4.0) gm/dl Albumin/Globulin Ratio 0.6 L (0.9-2) Diagnostic Findings Chest 2 View IMPRESSION: 1. Cardiomegaly and advanced emphysema without radiographic evidence of congestive failure. 2. A small to moderate right pleural effusion is unchanged from previous PG Care Time/CCT Total # of Minutes Spent Total Time Spent with Patient: Total time spent is greater than 50% in coordination of care (as documented) at patient's floor/unit and/or counseling patient: Coding Level of Care Code 84266 Subseq Hosp Care Lvl 3 Diagnoses Acute exacerbation of CHF (congestive heart failure) I50.9 Heart failure type: unspecified Pneumonia J18.9 Edema R60.9 Edema type: unspecified Acute kidney injury N17.9 Rapid atrial fibrillation I48.91 Hypoxia R09.02 Combined systolic and diastolic heart failure I50.40 Hypertension I10 Tachycardia R00.0 Cardiomyopathy I42.9 Macrocytosis D75.89 Closed left hip fracture S72.002A Elevated bilirubin R17 DVT prophylaxis Z29.9 (1) Acute exacerbation of CHF (congestive heart failure) Heart failure type: unspecified Qualified Code(s): I50.9 - Heart failure, unspecified (2) Edema Edema type: unspecified Qualified Code(s): R60.9 - Edema, unspecified
[2019-12-18 09:34] LABS: Base Excess VBG 11.2 mEq/L; Oxygen Saturation VBG 77.2 %; pH VBG 7.4 (7.36-7.41)
[2019-12-18] MEDS ORDERED: METOPROLOL TARTRATE 1 MG/ML VIAL IV STA ×2 (09:34→13:18)
--- NOTE | 2019-12-18 12:28 | XRay Report ---
TWO VIEW CHEST CLINICAL HISTORY: Follow-up pleural effusion. FINDINGS: PA and lateral chest radiographs are compared to study dated 12/16/2019 and correlated with chest CT dated 10/19/2015. The heart is markedly enlarged noting atherosclerotic calcification of the thoracic aorta. The pulmonary vasculature is noncongested. Emphysema and chronic interstitial [place] is similar to previous. There is a small to moderate right pleural effusion with associated atel ectasis. No left pleural effusion is identified. No airspace consolidation is seen typical for pneumo lima. Scarring/atelectasis is seen bilaterally. There is no pneumothorax. The skeletal structures are osteopenic. The bony thorax appears intact. IMPRESSION: 1. Cardiomegaly and advanced emphysema without radiographic evidence of congestive failure. 2. A small to moderate right pleural effusion is unchanged from previous ACT 112: Negative or not required by law. Electronically signed by: Enio Maguire M.D. 12/18/2019 12:26 PM
[2019-12-18] MEDS: METOPROLOL SUCC 25MG EXT REL TAB PO SCH (18:08)
[2019-12-19] MEDS: CEFEPIME 2,000 MG in SYRINGE 7.5 ML IV SCH ×2 (00:41→12:48)
[2019-12-19] MEDS: ACETAMINOPHEN 325 MG TAB PO PRN (00:56)
[2019-12-19 07:26] LABS: Albumin Level 2.3 gm/dl (3.4-5.0); BUN Creatinine Ratio 22.1 (10-20); Calcium 8.3 mg/dl (8.5-10.1); Creatinine Clr Calc Pharmacy 63.1 ml/min; Est GFR (African American) 63.3; Est GFR (Non-African American) 54.6; Potassium 3.3 mmol/L (3.5-5.1)
[2019-12-19 07:29] LABS: Albumin Globulin Ratio 0.6 (0.9-2); Bilirubin,Total 1.2 mg/dl (0.2-1); Globulin 3.9 gm/dl (2.5-4.0); Total Protein 6.2 gm/dl (6.4-8.2)
[2019-12-19] MEDS ORDERED: POTASSIUM CHLORIDE 20 MEQ TABCR PO STA (07:32)
[2019-12-19] MEDS: AMMONIUM LACTATE 12% LOTION 225 GM BTL EXT SCH ×2 (08:26→20:41)
[2019-12-19] MEDS: ENOXAPARIN INJ 40 MG/0.4 ML SYR SQ SCH (08:27)
[2019-12-19] MEDS: FUROSEMIDE 20 MG TAB PO SCH ×2 (08:27→17:22)
[2019-12-19] MEDS: METOPROLOL SUCC 25MG EXT REL TAB PO SCH (08:27)
[2019-12-19] MEDS: ASPIRIN 81 MG ECTAB PO SCH (08:27)
--- NOTE | 2019-12-19 08:41 | Hospitalist Progress Note ---
Date of Service December 19, 2019 Assessment & Plan (1) Acute exacerbation of CHF (congestive heart failure): Patient with longstanding afib not on anticoagulation presented with edema and was found to be in afib with RVR 129bpm. Recent weight gain from immobility (secondary to L femoral neck fx) and diet/increased sodium intake resulting in acute exacerbation of mixed systolic and diastolic CHF. Weight on discharge 85.7kg on 11/22. Currently, wt 93.9kg. Lasix 60mg IV x 1 in ER. CXR with RLL o pacity and small right effusion with stable moderate cardiomegaly. BNP 89475. Trop 0.052, trended down (likely secondary to acute decomp/demand ischemia) * Likely secondary to uncontrolled afib with RVR vs cardiorenal * ECHO February 2019 with normal LV size with severely reduced LV systolic function. EF 25-30%. Global hypokinesis. Mild concentric LVH. Severely dilated RV with reduced systolic function. Severe biatrial dilation. Mild pulm HTN. RSVP 40mmHg. * Repeat ECHO with severely reduced systolic function left and right ventricle. Biatrial dilation. Mild-moderate MR, Severe TR. RVSP elevated at 40-50mmHg. Minimal change compared to echo 02/2019 * Cardiology consult * Continued diuresis with lasix 40mg IV BID. * Repeat CXR without evidence of congestive failure, advanced emphysema and cardiomegaly. mod R pleural effusion * Net output 11L, net negative -7.2L. Wt currently 89.8kg. * Lasix 40mg IV BID (on 60mg BID outpatient) -- given AM dose but evening dose held. Given diamox 250mg x 1 for CO2 39 on AM labs * Continue daily weights, I&O * Initiated metoprolol XL 25 mg this AM -- improvement in HR--> still afib, but HR in 100-110s. (previously >200 on ) --> Could consider increasing dose as tolerated -- patient does require continued reassurance regarding necessity to obtain rate control (2) Pneumonia: * CXR on 12/15 with possible atelectasis vs pneumonia. repeat imaging rec * Chest 2 view 12/16 with moderate R pleural effusion, slightly increased in size. R basilar densities persist and may represent atelectasis from pleural effusion or pneumonia. cardiomegaly and mild congestive change * Blood cultures prelim 1/2 sets pseudomonas * Continue IV cefepime (on day 5 of treatment) * Oxygen saturation 88% on 2L currently -- had been requiring 4L -- titrate O2 to only maintain O2 sat >88% given CO2 retention and emphysema on imaging. Patient denies shortness of breath even while in 80s. Dropped to low 80s on room air. * CXR as above (3) Rapid atrial fibrillation: * See above. HR currently 111bpm * Lopressor 2.5mg x 1 on admission. Able to tolerate 5mg on 12/17. Received 5mg IV x 2 on -- additional dose ordered for evening. Patient had been up in 200s at one point while being repositioned on * Continue Toprol XL 25mg --> may need to increase dose * Repeated conversation regarding untreated afib with elevated rate and risk of clots as well as acute worsening of heart function (4) Acute kidney injury: * RESOLVED -- Cr elevated at 2.23 on admit (baseline appears less than 1.0) --> back to baseline, ~1.03 * D/C IV lasix -- resumed 60mg PO as taking outpatient * Continue to hold lisinopril in setting of JOANIE, hypotension --> would resume in AM if BP tolerates, as patient asymptomatic with current BP 99/48 * Continue to monitor labs in AM (5) Closed left hip fracture: * Non operative management at this time * Repeat Hip/Pelvis X ray with progressively worsened displacement and foreshortening of the acute transcervical fracture of the left femur with moderate adjacent soft tissue swelling. * Ortho consult -- appreciate input * Tylenol prn pain (6) Edema: * Improving * See above * US Doppler NEGATIVE FOR DVT bilateral LE * Wound RN for LE --> continue Amlactin 1gm BID (7) Hypoxia: * 86% recorded, however patient with significant clubbing and dropped to 74% without oxygen during examination. Continued dropped o2 sats -- combination of volume over load and possible pneumonia * Likely will need 2step prior to discharge as patient may need oxygen at discharge * Supplemental O2 to maintain sat >88% * Continue to monitor (8) Combined systolic and diastolic heart failure: * See above (9) Hypertension: * Chronic. Patient hypotensive, 99/48, but asymptomatic. * Hold home lisinopril 5mg in setting of JOANIE -- resume in AM if continues to be asymptomatic at low BP (10) Tachycardia: * See above (11) Cardiomyopathy: * See above (12) Macrocytosis: * MCV noted to be >100 * Folate, B12 without deficiency (13) Elevated bilirubin: * Likely related to congestion from volume overload, however patient without abdominal imaging and unilateral effusion * Elevated to 2.2 on 12/14 prior to arrival to ER for admission. Continues to be 1.3 despite diuresis. Alk phos slightly improved but still elevated * US GB ordered -- Tbili return to normal and was cancelled. however elevated to 1.3 on repeat. Patient would not like US at this time (14) DVT prophylaxis: * Lovenox SQ ordered --> patient previously refusing anticoagulation for afib * Will avoid SCDs give LE changes Dispo: from [facility] for rehab. likely to remain in hospital at least 2-3 days. Admission and Anticipated Discharge Date Admission Date: December 15, 2019 Subjective Patient feeling ok. States she continues to have issues with bed changes and denies being able to lay flat for assistance changing linens. Was agreeable to metoprolol this morning and she states "I took it". Discussed switching back to home lasix as her kidney function has returned to baseline. Discussed findings on xray for her hip and that we will consult orthopedics to see if there is anything they are able to offer. Discussed that she may need oxygen if her sats do not improved as possible pneumonia and fluid come off as she continued to desat into the lower 80s when off this morning. Reports some gas pain this morning and states she feels like she has to have a bowel movement. Discussed elevated bilirubin level again today and patient continues to decline having further imaging done of this despite conversations regarding recurrent fluid accumulation. Review of Systems Review of Systems: All systems reviewed & are unremarkable except as noted in HPI & below Physical Exam Physical Exam: Constitutional WD/WN, vitals as above, no acute distress Eyes with glaucoma, legally blind ENMT Ears: no hearing impairment Neck trachea midline, no thyromegaly Respiratory Auscultation: + breath sounds absent (right base), + diminished lung sounds and + crackles (RML); no rhonchi Cardiovascular Rate/Rhythm: + tachycardic and + irregularly irregular Vessels: + JVD Extremities: edema improved to b/l LE. Still with pitting edema of upper thighs Gastrointestinal (Abdomen) Inspection/Auscultation: + abdomen distention (improved), normal bowel sounds and + abdominal edema (improving) Percussion/Palpation: + abdomen firm (improving); abdomen nontender Musculoskeletal Head/Neck/Chest: normocephalic and head atraumatic Tender to palpation left anterior pelvic region Neurologic deep tendon reflexes 2+ bilaterally, moves all extremities and awake Psychiatric Orientation: alert and oriented x 3 Insight: + poor insight Skin significant iccythyosis bilateral lower extremities to the knees. hyperpigmented. improved with amlactin. erythema to buttocks Results & Data ([facility]) Vital Signs (Past 12 Hours) Vital Signs Temp Pulse Pulse Resp BP Pulse Ox 12/19/19 07:19 36.5 C 112 H 18 99/61 L 95 12/19/19 03:52 36.5 C 95 H 20 110/68 94 12/18/19 23:30 99 H 12/18/19 23:15 36.5 C 100 H 19 91/64 L 98 PG Care Time/CCT Total # of Minutes Spent Total Time Spent with Patient: Total time spent is greater than 50% in coordination of care (as documented) at patient's floor/unit and/or counseling patient: Coding Level of Care Code 66878 Subseq Hosp Care Lvl 3 Diagnoses Acute exacerbation of CHF (congestive heart failure) I50.9 Heart failure type: unspecified Pneumonia J18.9 Rapid atrial fibrillation I48.91 Acute kidney injury N17.9 Closed left hip fracture S72.002A Edema R60.9 Edema type: unspecified Hypoxia R09.02 Combined systolic and diastolic heart failure I50.40 Hypertension I10 Tachycardia R00.0 Cardiomyopathy I42.9 Macrocytosis D75.89 Elevated bilirubin R17 DVT prophylaxis Z29.9 (1) Acute exacerbation of CHF (congestive heart failure) Heart failure type: unspecified Qualified Code(s): I50.9 - Heart failure, unspecified (2) Edema Edema type: unspecified Qualified Code(s): R60.9 - Edema, unspecified
--- NOTE | 2019-12-19 09:56 | XRay Report ---
XR hip LT 2V w pelvis HISTORY: 69 years-old Female L femoral neck fx on 11/07 follow-up study in a patient with left femora l neck fracture COMPARISON: Left femur radiographs 11/07/2019 TECHNIQUE: AP view the pelvis with 2 views of the left hip FINDINGS: Demineralized appearance the bones. 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 There is an acute transcervical fracture of the left femur with progressively worsened displacemen t, displaced superiorly 1.7 cm from comparison. Moderate adjacent soft tissue swelling. Mild cortical impaction/foreshortening. No dislocation. IMPRESSION: Progressively worsened displacement and foreshortening of the acute transcervical fractur e of the left femur with moderate adjacent soft tissue swelling. ACT 112: Negative or not required by law. The above report was generated using voice recognition software. It may contain grammatical, syntax o r spelling errors. Electronically signed by: Bulmaro Salazar M.D. 12/19/2019 9:55 AM
[2019-12-19] MEDS ORDERED: ALUMINUM/MAGNESIUM/SIMETH (MAALOX MAX) 30 ML UDC PO PRN (23:54)
[2019-12-19] MEDS ORDERED: BISMUTH SUBSALICYLATE SUSP PO PRN (23:54)
[2019-12-20] MEDS: SIMETHICONE 80 MG CHEW PO PRN ×2 (00:26→06:43)
[2019-12-20] MEDS: CEFEPIME 2,000 MG in SYRINGE 7.5 ML IV SCH ×2 (00:29→13:13)
[2019-12-20 06:44] LABS: Basophils # (auto) 0.02 K/uL (0-0.2); Basophils % (auto) 0.3 %; Eosinophils # (auto) 0.22 K/uL (0-0.5); Hematocrit (blood only) 38.3 % (37-47); Hemoglobin 11.6 g/dL (12.0-16.0); Immature Granulocytes # (auto) 0.02 K/uL (0.00-0.02); Immature Granulocytes % (auto) 0.3 %; Lymphocytes # (auto) 1.59 K/uL (1.2-3.4); Lymphocytes % (auto) 21.5 %; Mean Corpuscular Hemoglobin 30.9 pg (25-34); Mean Corpuscular Hgb Conc 30.3 g/dL (32-36); Mean Corpuscular Volume 101.9 fL (80-100); Mean Platelet Volume 8.8 fL (7.4-10.4); Monocytes # (auto) 0.62 K/uL (0.11-0.59); Monocytes % (auto) 8.4 %; Neutrophils # (auto) 4.94 K/uL (1.4-6.5); Neutrophils % (auto) 66.5 %; Platelet Count 239 K/uL (130-400); RDW Standard Deviation 62.5 fL (36.4-46.3); Red Blood Count 3.76 M/uL (4.2-5.4); White Blood Count 7.41 K/uL (4.8-10.8)
[2019-12-20 06:58] LABS: INR 1.2 (0.9-1.1); Prothrombin Time 12.1 Seconds (9.0-12.0)
[2019-12-20 07:21] LABS: Albumin Level 2.4 gm/dl (3.4-5.0); BUN Creatinine Ratio 20.9 (10-20); Calcium 9.3 mg/dl (8.5-10.1); Creatinine Clr Calc Pharmacy 56.7 ml/min; Est GFR (African American) 61.9; Est GFR (Non-African American) 53.4; Potassium 3.1 mmol/L (3.5-5.1)
[2019-12-20 07:24] LABS: Albumin Globulin Ratio 0.6 (0.9-2); Bilirubin,Total 1.4 mg/dl (0.2-1); Globulin 4.2 gm/dl (2.5-4.0); Total Protein 6.6 gm/dl (6.4-8.2)
[2019-12-20] MEDS ORDERED: POTASSIUM CHLORIDE 20 MEQ TABCR PO STA ×2 (08:22→12:32)
[2019-12-20] MEDS: FUROSEMIDE 20 MG TAB PO SCH (08:27)
[2019-12-20] MEDS: ASPIRIN 81 MG ECTAB PO SCH (08:27)
[2019-12-20] MEDS: METOPROLOL SUCC 25MG EXT REL TAB PO SCH (08:27)
[2019-12-20] MEDS: AMMONIUM LACTATE 12% LOTION 225 GM BTL EXT SCH ×2 (08:28→19:38)
[2019-12-20] MEDS: ENOXAPARIN INJ 40 MG/0.4 ML SYR SQ SCH (08:28)
[2019-12-20] MEDS ORDERED: CALCIUM CARBONATE 500 MG CHEWABLE TAB PO PRN (10:35)
[2019-12-20] MEDS: CALCIUM CARBONATE 500 MG CHEWABLE TAB PO PRN ×2 (13:12→20:29)
[2019-12-20] MEDS ORDERED: DIGOXIN 250 MCG in SYRINGE 9 ML IV STA (13:51)
--- NOTE | 2019-12-20 14:13 | Palliative Care Consultation ---
Date of Consultation December 20, 2019 Assessment & Plan (1) Goals of care, counseling/discussion: -69 year old female patient with PMH htn, paroxysmal afib, severe LV dysfunction with EF 20-25% on most recent echo during this admission, RV dysfunction, visual impairment, atrial ectopy, hyperlipidemia, and venous stasis ulcers, presented to the hospital from the [facility] with increased edema. Patient was just in hospital a few weeks ago after a fall and a non-operable closed left hip fracture. Patient was living at home with her daughter and daughter's family prior to last hospitalization, but was then sent to the [facility]. Apparently patient told the admitting provider that since she was told she was going to , she was eating a lot of salty and unhealthy foods including kielbasa and ice cream. Patient often refuses certain medications despite many many providers spending a great deal of time explaining their important. Palliative care has met with patient in the past to discuss goals of care, but patient maintains that her goal is to get better and return home. Palliative care is reconsulted since she continues to refuse cardiac medications for her atrial fibrillation such as metoprolol. -Met with patient in room 238-2. She is awake, alert and oriented x4. She is co nversive and knows why she is in the hospital. -Of note, this patient has been evaluated by psychiatry in the past due to questionable capacity to make decisions. However, despite patient's non-conven tional way of thinking and reasoning, she is fully oriented and able to make decisions for herself. -Patient went off on quite a long tangent about why she does not like to take all the medications prescribed to her, as she thinks that "we" (the medical team as a whole) are the ones to "put these problems on her" and the medications make her feel poorly. -I inquired about patient's goals of therapy. She states that her goal is to "get better and travel the world." "To live the way I was before all of this happened." I reiterated that she has multiple advanced medical illnesses as well as a non-operable hip fracture. Despite this, patient states that her goal is to get better and become independent again. -Patient has 8 children: five daughters and three sons. Her oldest sons Nahun and Edward (uncertain of spelling, pronounced Si-eed), are the children she trusts the most, but she declines me calling them at this time. She has declined me contacting them in the past as well. Patient does not have a POA. Daughters Margy and Cathi, as well as a son Corby, live locally. Patient states, "My daughters are currently on time-out from me." They have a strained relationship. -To get to the point, patient wants to remain a full code and wants to get better. She states that she will take cardiac medications, but wants the smallest doses possible and wants everything fully explained to her beforehand. -I don't feel that I have much else to offer at this point, so I will just follow peripherally for now. Please contact palliative care with any further needs. (2) Pneumonia: (3) Atrial fibrillation: (4) Combined systolic and diastolic heart failure: History of Present Illness Attending Physician: Gael Briceno MD History of Present Illness This 69 year old female patient with PMH htn, paroxysmal afib, severe LV dysfunction with EF 20-25% on most recent echo during this admission, RV dysfunction, visual impairment, atrial ectopy, hyperlipidemia, and venous stasis ulcers, presented to the hospital from the [facility] with increased edema. Patient was just in hospital a few weeks ago after a fall and a non-operable closed left hip fracture. Patient was living at home with her daughter and daughter's family prior to last hospitalization, but was then sent to the [facility]. Apparently patient told the admitting provider that since she was told she was going to , she was eating a lot of salty and unhealthy foods including kielbasa and ice cream. Patient often refuses certain medications despite many many providers spending a great deal of time explaining their important. Palliative care has met with patient in the past to discuss goals of care, but patient maintains that her goal is to get better and return home. Palliative care is reconsulted since she continues to refuse cardiac medications for her atrial fibrillation such as metoprolol. Thank you kindly for this consult. Palliative care team will follow as needed. Allergies Allergy/AdvReac Type Severity Reaction Status Date / Time Penicillins Allergy Unknown Unknown Verified 12/15/19 16:02 Home Medications Home Medications Medication Instructions Recorded Confirmed Type acetaminophen 1,000 mg PO Q8H PRN 06/21/18 12/15/19 History aspirin 81 mg PO DAILY #30 tab 06/26/18 12/15/19 Rx furosemide [Lasix] 60 mg PO BID 11/07/19 12/15/19 History lisinopril 5 mg PO DIRECTED 11/07/19 12/15/19 History acetaminophen 650 mg PO Q6H PRN 12/15/19 12/15/19 History bisacodyl [Dulcolax (bisacodyl)] 10 mg CO DAILY PRN 12/15/19 12/15/19 History ibuprofen 600 mg PO Q6H PRN 12/15/19 12/15/19 History ondansetron HCl [Zofran] 4 mg PO Q6H PRN 12/15/19 12/15/19 History sodium phosphates [Enema] 118 ml CO DAILY PRN 12/15/19 12/15/19 History tramadol 100 mg PO Q6H PRN 12/15/19 12/15/19 History Patient History Medical History Acute combined systolic and diastolic congestive heart failure (Acute) Acute renal insufficiency 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 Goals of care, counseling/discussion HTN (hypertension) (Chronic) Hyperlipemia (Chronic) Hypotension With her hypotension, her Hb is up from prior, and creatinine has bumped significantly in one day so appears to be intravascularly dry - unsure how she will tolerate fluid challenge but may make her tolerate anesthesia better Tachycardia Visual impairment (Chronic) Surgical History No pertinent past surgical history Family History Other No pertinent family history Social History Preferred Language: Israeli Communication Ability: Effective Warp Changer Required: No Beliefs That Will Affect Care: None marital status: / Current Living Situation: Snf Other Information That Helps Us Care for You: No Feels Safe at Home: Yes Safety Concerns: Feels Safe At This Time Smoking Status: Former smoker Tobacco Type: cigarettes ; Cigarettes Per Day: 10 ; Do You Dip or Chew Tobacco: No ; Second Hand Exposure: No ; Tobacco Cessation Education Requested by Patient: No Hx Alcohol Use: No Hx Substance Use: No Review of Systems Review of Systems: +weakness no pain no SOB no N/V no chest pain or palpitations Physical Exam Constitutional: + ill appearing (chronically) and + cachectic; no acute distress ENMT: external ear and nose normal, oropharynx normal Neck: normal visual inspection Respiratory: normal respiratory effort, lungs clear to auscultation Cardiovascular: Rate/Rhythm: + tachycardic and + irregularly irregular Gastrointestinal (Abdomen): Inspection/Auscultation: normal bowel sounds Percussion/Palpation: abdomen soft Neurologic: moves all extremities and awake; not confused Psychiatric: Orientation: alert and oriented x 3 Insight: + impaired insight Results & Data Vital Signs (Past 12 Hours) Vital Signs Temp Pulse Resp BP Pulse Ox 12/20/19 12:18 36.5 C 120 H 18 91/59 L 94 12/20/19 07:38 36.9 C 122 H 19 98/67 L 91 12/20/19 04:53 36.6 C 116 H 18 104/70 92 Coding Level of Care Code 85730 Inpt Consult Level 3 Diagnoses Goals of care, counseling/discussion Z71.89 Pneumonia J18.9 Atrial fibrillation I48.91 Combined systolic and diastolic heart failure I50.40 Time Spent (min) 70 Time Spent Midlevel 70 minutes with >50% of the time spent at bedside with patient discussing condition and GOC.
--- NOTE | 2019-12-20 15:18 | Hospitalist Progress Note ---
Date of Service December 20, 2019 Assessment & Plan (1) Acute exacerbation of CHF (congestive heart failure): Patient with longstanding afib not on anticoagulation presented with edema and was found to be in afib with RVR 129bpm. Recent weight gain from immobility (secondary to L femoral neck fx) and diet/increased sodium intake resulting in acute exacerbation of mixed systolic and diastolic CHF. Weight on discharge 85.7kg on 11/22. * Likely secondary to uncontrolled afib with RVR vs cardiorenal * ECHO February 2019 with normal LV size with severely reduced LV systolic function. EF 25-30%. Global hypokinesis. Mild concentric LVH. Severely dilated RV with reduced systolic function. Severe biatrial dilation. Mild pulm HTN. RSVP 40mmHg. * Repeat ECHO with severely reduced systolic function left and right ventricle. Biatrial dilation. Mild-moderate MR, Severe TR. RVSP elevated at 40-50mmHg. Minimal change compared to echo 02/2019 * Cardiology consulted, chf clinic following * Diuresed with lasix 40mg IV BID with good effect - now changed to home po dosing. Close to last discharge weight at this point * Repeat CXR without evidence of congestive failure, advanced emphysema and cardiomegaly. mod R pleural effusion * net negative -8L. * Lasix 40mg IV BID (on 60mg BID outpatient) -- given AM dose but evening dose held. Given diamox 250mg x 1 for CO2 39 on AM labs, CO2 36 today * Continue daily weights, I&O * Continue to manage heart rate as below (2) Pneumonia: * CXR on 12/15 with possible atelectasis vs pneumonia. repeat imaging rec * Chest 2 view 12/16 with moderate R pleural effusion, slightly increased in size. R basilar densities persist and may represent atelectasis from pleural effusion or pneumonia. cardiomegaly and mild congestive change * Blood cultures 1/2 sets pseudomonas * Continue IV cefepime (on day 6 of treatment) * Oxygen saturation improving (3) Rapid atrial fibrillation: * See above. HR ranging from 1teens to 170 today, asymptomatic * Continue Toprol XL 25mg --> pressures do not allow for increased dose. Long discussion with patient on medications, will start loading dose of digoxin. Patient had hyperkalemia with dig last admission so will check potassium am. * Patient has refused anticoagulation. (4) Closed left hip fracture: * Repeat Hip/Pelvis X ray with progressively worsened displacement and fo reshortening of the acute transcervical fracture of the left femur with moderate adjacent soft tissue swelling. * Ortho consult -- appreciate input * Tylenol prn pain * was non operative at the time of fall due to leg infection at last admission * Please see Dr. Anderson's note from 11/07 concerning patient's risk for surgery - She has been treated for the lower leg infection but otherwise her risks charity in largely the same from that assessment in which he put her risk of cardiac complications to at least 20%. Her fluid balance is improving and she is nearly back to her discharge weight and requiring less O2, she has been hypokalemic which is being replaced. Her heart rate is not well controlled and dig was initiated as above to attempt better control. Would have cardiology re-evaluate for further preop recommendations if surgery is decided upon. (5) Acute kidney injury: * RESOLVED -- Cr elevated at 2.23 on admit (baseline appears less than 1.0) --> back to baseline, ~1.03 * D/C IV lasix -- resumed 60mg PO as taking outpatient * Continue to hold lisinopril d/t hypotension (6) Edema: * Improving * See above * US Doppler NEGATIVE FOR DVT bilateral LE * Wound RN for LE --> continue Amlactin 1gm BID * Patient refused assessment of her skin by wound care today (7) Hypoxia: * improving with diuresis * Likely will need 2step prior to discharge as patient may need oxygen at discharge * Supplemental O2 to maintain sat >88% (8) Combined systolic and diastolic heart failure: * See above (9) Hypertension: * Chronic. Patient hypotensive, 99/48, but asymptomatic. * Hold home lisinopril 5mg and continue metoprolol for heart rate (10) Tachycardia: * See above (11) Cardiomyopathy: * See above (12) Macrocytosis: * MCV noted to be >100 * Folate, B12 without deficiency (13) Elevated bilirubin: * Likely related to congestion from volume overload, however patient without abdominal imaging and unilateral effusion * Elevated to 2.2 on 12/14 prior to arrival to ER for admission. Continues to be 1.4 despite diuresis. Alk phos slightly improved but still elevated * May want to consider US of the gallbladder but so far this admission patient has refused (14) DVT prophylaxis: * Lovenox SQ ordered --> patient previously refusing anticoagulation for afib * Will avoid SCDs give LE changes Dispo: from [facility] for rehab. likely to remain in hospital at least 2-3 days. Admission and Anticipated Discharge Date Admission Date: December 15, 2019 Subjective Ms. Arreguin reports feeling well. She has some pain from her hip. She denies chest pain or palpitations, no apparent symptoms with elevated heart rate. I did visit her bedside multiple times today to discuss treatment options. She is agreeable to digoxin. ROS Constitutional: no chills, aches, sweats or fever Respiratory: no sob,cough, sputum, or wheezing Cardiac: no chest pain, palpitations, edema, orthopnea or lightheadedness GI: no abdominal pain, nausea, vomiting, diarrhea or constipation : no dysuria or hesitancy Extremities: see HPI Skin: no rash All other systems reviewed and negative Physical Exam Physical Exam: General: no distress Eyes: normal inspection, PERLL Respiratory: chest non tender, clear to auscultation, normal breath sounds, no respiratory distress, no accessory muscle use Cardiac: irregular rate and rhythm, no rub or gallop, no murmur, +1 pitting edema lower extremities GI/: active bowel sounds, no abd pain or tenderness, soft, non distended Extremities: normal range of motion, normal strength, non tender Neuro/Psych: alert and oriented x 3, normal mood and affect Skin: normal color, dry, lower extremities with scaling skin Results & Data ([facility]) Vital Signs (Past 12 Hours) Vital Signs Temp Pulse Pulse Resp BP BP Pulse Ox 12/20/19 15:00 37.2 C 109 H 18 105/61 92 12/20/19 14:31 122 H 12/20/19 12:18 36.5 C 120 H 18 91/59 L 94 12/20/19 07:38 36.9 C 122 H 19 98/67 L 91 12/20/19 04:53 36.6 C 116 H 18 104/70 92 PG Care Time/CCT Total # of Minutes Spent Total Time Spent with Patient: Total time spent is greater than 50% in coordination of care (as documented) at patient's floor/unit and/or counseling patient: Coding Level of Care Code 36019 Subseq Hosp Care Lvl 3 Diagnoses Acute exacerbation of CHF (congestive heart failure) I50.9 Heart failure type: unspecified Pneumonia J18.9 Rapid atrial fibrillation I48.91 Closed left hip fracture S72.002A Acute kidney injury N17.9 Edema R60.9 Edema type: unspecified Hypoxia R09.02 Combined systolic and diastolic heart failure I50.40 Hypertension I10 Tachycardia R00.0 Cardiomyopathy I42.9 Macrocytosis D75.89 Elevated bilirubin R17 DVT prophylaxis Z29.9 (1) Acute exacerbation of CHF (congestive heart failure) Heart failure type: unspecified Qualified Code(s): I50.9 - Heart failure, unspecified (2) Edema Edema type: unspecified Qualified Code(s): R60.9 - Edema, unspecified
--- NOTE | 2019-12-20 16:44 | Electrocardiogram Report ---
Test Reason : Blood Pressure : / mmHG Vent. Rate : 110 BPM Atrial Rate : 000 BPM P-R Int : 000 ms QRS Dur : 092 ms QT Int : 288 ms P-R-T Axes : 000 -18 130 degrees QTc Int : 389 ms Atrial fibrillation with rapid ventricular response Minimal voltage criteria for LVH, may be normal variant ( Enoch product ) Nonspecific ST and T wave abnormality Abnormal ECG When compared with ECG of 15-DEC-2019 15:13, ST elevation now present in Anterior leads Confirmed by Kota Thacker ([id number]) on 12/20/2019 4:43:46 PM Referred By: Bebo Heartmike Confirmed By:Kota Thacker
--- NOTE | 2019-12-20 18:13 | Orthopedic Consultation ---
Date of Consultation December 20, 2019 Assessment & Plan (1) Closed left hip fracture: Further fracture displacement as seen on most recent XR not unexpected given non-operative treatment for previous displaced femoral neck fracture. We do not expect healing of any kind to occur. Patient's venous stasis ulcers have improved since last admission, a small area of ulceration and diffuse chronic skin changes remain. Patient high risk from a medical/cardiac standpoint, as noted in cardiology consult 11/07/19. The patient is not overtly painful on exam and comfortable at rest. States she is able to transfer with assistance. long-term goals need to be discussed further. Patient essentially non-ambulatory due to previous hip fracture. Would consider [facility] for palliative care. Given significant medical co-mobilities, current non-ambulatory state and pain that is rather well controlled, I do not see the benefits of surgery outweighing the risk at this time. Thank you for the consultation. History of Present Illness Reason for Consultation: Left hip fracture Attending Physician: Gael Briceno MD History of Present Illness The patient is a 69 year old female with complicated recent PMHx for displaced left femoral neck fracture on 11/07/19. Due to significant medical issues at that time, including cardiomyopathy, pulmonary hypertension, CHF, new onset a. fib, hypotension with hemodynamic instability, chronic infected venous stasis ulcers b/l lower extremities, the patient was deemed too high risk for surgery and would likely have poor clinical outcome and palliative care was initiated. Now admitted for CHF exacerbation and bilateral lower extremity edema. We were consulted secondary to further displacement of femoral neck fracture. The patient admits to pain with activity/transfers however does state she is comfortable at rest. She is not on pain medication secondary to significant hemodynamic instability. Allergies Allergy/AdvReac Type Severity Reaction Status Date / Time Penicillins Allergy Unknown Unknown Verified 12/15/19 16:02 Home Medications Home Medications Medication Instructions Recorded Confirmed Type acetaminophen 1,000 mg PO Q8H PRN 06/21/18 12/15/19 History aspirin 81 mg PO DAILY #30 tab 06/26/18 12/15/19 Rx furosemide [Lasix] 60 mg PO BID 11/07/19 12/15/19 History lisinopril 5 mg PO DIRECTED 11/07/19 12/15/19 History acetaminophen 650 mg PO Q6H PRN 12/15/19 12/15/19 History bisacodyl [Dulcolax (bisacodyl)] 10 mg ND DAILY PRN 12/15/19 12/15/19 History ibuprofen 600 mg PO Q6H PRN 12/15/19 12/15/19 History ondansetron HCl [Zofran] 4 mg PO Q6H PRN 12/15/19 12/15/19 History sodium phosphates [Enema] 118 ml ND DAILY PRN 12/15/19 12/15/19 History tramadol 100 mg PO Q6H PRN 12/15/19 12/15/19 History Patient History Medical History Acute combined systolic and diastolic congestive heart failure (Acute) Acute renal insufficiency 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 Goals of care, counseling/discussion HTN (hypertension) (Chronic) Hyperlipemia (Chronic) Hypotension With her hypotension, her Hb is up from prior, and creatinine has bumped significantly in one day so appears to be intravascularly dry - unsure how she will tolerate fluid challenge but may make her tolerate anesthesia better Tachycardia Visual impairment (Chronic) Surgical History No pertinent past surgical history Family History Other No pertinent family history Social History Preferred Language: Urdu Communication Ability: Effective Facilities Maintenance Supervisor Required: No Beliefs That Will Affect Care: None marital status: / Current Living Situation: [facility] Other Information That Helps Us Care for You: No Feels Safe at Home: Yes Safety Concerns: Feels Safe At This Time Smoking Status: Former smoker Tobacco Type: cigarettes ; Cigarettes Per Day: 10 ; Do You Dip or Chew Tobacco: No ; Second Hand Exposure: No ; Tobacco Cessation Education Requested by Patient: No Hx Alcohol Use: No Hx Substance Use: No Review of Systems Review of Systems: All systems reviewed & are unremarkable except as noted in HPI & below Constitutional: as per Subjective / HPI Physical Exam Physical Exam: LLE NVSI +EHL/FHL/TA/GS SILT grossly, +2 DP pulse, compartments soft NT, short and external rotation, venous stasis with chronic inflammatory changes, +edema. mild pain with hip ROM. Constitutional: WD/WN, vitals as above Results & Data ([facility]) Vital Signs (Past 12 Hours) Vital Signs Temp Pulse Pulse Resp BP BP Pulse Ox 12/20/19 15:00 37.2 C 109 H 18 105/61 92 12/20/19 14:31 122 H 12/20/19 12:18 36.5 C 120 H 18 91/59 L 94 12/20/19 07:38 36.9 C 122 H 19 98/67 L 91 Diagnostic Findings XR hip LT 2V w pelvis HISTORY: 69 years-old Female L femoral neck fx on 11/07 follow-up study in a patient with left femoral neck fracture COMPARISON: Left femur radiographs 11/07/2019 TECHNIQUE: AP view the pelvis with 2 views of the left hip FINDINGS: Demineralized appearance the bones. 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 There is an acute transcervical fracture of the left femur with progressively worsened displacement, displaced superiorly 1.7 cm from comparison. Moderate adjacent soft tissue swelling. Mild cortical impaction/foreshortening. No dislocation. IMPRESSION: Progressively worsened displacement and foreshortening of the acute transcervical fracture of the left femur with moderate adjacent soft tissue swelling.
[2019-12-20] MEDS ORDERED: DIGOXIN 125 MCG in SYRINGE 9.5 ML IV ONE (18:30)
[2019-12-20] MEDS: ACETAMINOPHEN 325 MG TAB PO PRN (20:29)
[2019-12-21] MEDS: CEFEPIME 2,000 MG in SYRINGE 7.5 ML IV SCH ×2 (00:30→13:41)
[2019-12-21] MEDS: CALCIUM CARBONATE 500 MG CHEWABLE TAB PO PRN ×3 (04:17→21:34)
[2019-12-21] MEDS: ACETAMINOPHEN 325 MG TAB PO PRN ×3 (05:16→21:46)
[2019-12-21 07:02] LABS: Basophils # (auto) 0.02 K/uL (0-0.2); Basophils % (auto) 0.2 %; Eosinophils # (auto) 0.21 K/uL (0-0.5); Eosinophils % (auto) 2.4 %; Hemoglobin 11.9 g/dL (12.0-16.0); Immature Granulocytes # (auto) 0.01 K/uL (0.00-0.02); Immature Granulocytes % (auto) 0.1 %; Lymphocytes # (auto) 1.43 K/uL (1.2-3.4); Lymphocytes % (auto) 16.4 %; Mean Corpuscular Hemoglobin 30.9 pg (25-34); Mean Corpuscular Hgb Conc 30.5 g/dL (32-36); Mean Corpuscular Volume 101.3 fL (80-100); Mean Platelet Volume 8.6 fL (7.4-10.4); Monocytes # (auto) 1.07 K/uL (0.11-0.59); Monocytes % (auto) 12.2 %; Neutrophils % (auto) 68.7 %; Platelet Count 272 K/uL (130-400); RDW Coefficient of Variation 16.9 % (11.5-14.5); RDW Standard Deviation 61.4 fL (36.4-46.3); Red Blood Count 3.85 M/uL (4.2-5.4); White Blood Count 8.74 K/uL (4.8-10.8)
[2019-12-21 07:51] LABS: Albumin Globulin Ratio 0.6 (0.9-2); Albumin Level 2.5 gm/dl (3.4-5.0); BUN Creatinine Ratio 22.5 (10-20); Bilirubin,Total 1.7 mg/dl (0.2-1); Calcium 9.4 mg/dl (8.5-10.1); Creatinine Clr Calc Pharmacy 58.4 ml/min; Est GFR (African American) 64.1; Est GFR (Non-African American) 55.3; Globulin 4.2 gm/dl (2.5-4.0); Potassium 3.7 mmol/L (3.5-5.1); Total Protein 6.7 gm/dl (6.4-8.2)
[2019-12-21] MEDS: FUROSEMIDE 20 MG TAB PO SCH ×2 (08:03→16:47)
[2019-12-21] MEDS: ASPIRIN 81 MG ECTAB PO SCH (08:04)
[2019-12-21] MEDS: METOPROLOL SUCC 25MG EXT REL TAB PO SCH ×2 (08:04→09:30)
[2019-12-21] MEDS: ENOXAPARIN INJ 40 MG/0.4 ML SYR SQ SCH (08:04)
[2019-12-21] MEDS: AMMONIUM LACTATE 12% LOTION 225 GM BTL EXT SCH ×2 (08:05→21:34)
--- NOTE | 2019-12-21 12:03 | Hospitalist Progress Note ---
Date of Service December 21, 2019 Assessment & Plan (1) Acute exacerbation of CHF (congestive heart failure): Patient with longstanding afib not on anticoagulation presented with edema and was found to be in afib with RVR 129bpm. Recent weight gain from immobility (secondary to L femoral neck fx) and diet/increased sodium intake resulting in acute exacerbation of mixed systolic and diastolic CHF. Weight on discharge 85.7kg on 11/22. * ECHO February 2019 with normal LV size with severely reduced LV systolic function. EF 25-30%. Global hypokinesis. Mild concentric LVH. Severely dilated RV with reduced systolic function. Severe biatrial dilation. Mild pulm HTN. RSVP 40mmHg. * Repeat ECHO with severely reduced systolic function left and right ventricle. Biatrial dilation. Mild-moderate MR, Severe TR. RVSP elevated at 40-50mmHg. Minimal change compared to echo 02/2019 * Cardiology consulted, chf clinic following * Diuresed with lasix 40mg IV BID with good effect - now changed to home po dosing. Close to last discharge weight at this point * Repeat CXR without evidence of congestive failure, advanced emphysema and cardiomegaly. mod R pleural effusion * Continue daily weights, I&O * Continue to manage heart rate as below (2) Pneumonia: * CXR on 12/15 with possible atelectasis vs pneumonia * Chest 2 view 12/16 with moderate R pleural effusion, slightly increased in size. R basilar densities persist and may represent atelectasis from pleural effusion or pneumonia. cardiomegaly and mild congestive change * Blood cultures 1/2 sets pseudomonas * Continue IV cefepime (last day 12/22) * Oxygen saturation improving (3) Edema: * Improving * See above * US Doppler NEGATIVE FOR DVT bilateral LE * Wound RN for LE --> continue Amlactin 1gm BID * Patient refused assessment of her skin by wound care 12/19 (4) Acute kidney injury: * RESOLVED -- Cr elevated at 2.23 on admit (baseline appears less than 1.0) --> back to baseline * D/C IV lasix -- resumed 60mg PO as taking outpatient * Continue to hold lisinopril d/t hypotension (5) Rapid atrial fibrillation: * Heart rate has normalized with administration of IV digoxin, will start po maintenance dosing and check a level tomorrow morning * Increase Toprol XL to 37.5mg as pressures have improved with rate control * Will need to closely monitor potassium level as she became hyperkalemic with last attempt at digoxin though it is unclear if the two were related * Patient has refused anticoagulation. (6) Hypoxia: * improving with diuresis * Will likely need O2 at discharge, will be unable to perform 2 step due to non ambulatory status * Supplemental O2 to maintain sat >88% (7) Combined systolic and diastolic heart failure: * See above (8) Hypertension: * has been hypotensive but this improving * Hold home lisinopril 5mg and continue metoprolol for heart rate (9) Tachycardia: * See above (10) Cardiomyopathy: * See above (11) Macrocytosis: * MCV noted to be >100 * Folate, B12 without deficiency (12) Closed left hip fracture: * Repeat Hip/Pelvis X ray with progressively worsened displacement and foreshortening of the acute transcervical fracture of the left femur with moderate adjacent soft tissue swelling. * Ortho consult - not a surgical candidate at this time. * Tylenol prn pain (13) Elevated bilirubin: * Likely related to congestion from volume overload, however patient without abdominal imaging and unilateral effusion * Elevated to 2.2 on 12/14 prior to arrival to ER for admission. Increased to 1.7 despite diuresis. Alk phos slightly improved but still elevated * Patient continues to refuse gallbladder ultrasound (14) Non-sustained ventricular tachycardia: asymptomatic. Will increase beta alis as above (15) DVT prophylaxis: * Lovenox SQ ordered --> patient previously refusing anticoagulation for afib * Will avoid SCDs give LE changes Dispo: from [facility] for rehab. If heart rate continues to improve, may be able to discharge in a day or two Admission and Anticipated Discharge Date Admission Date: December 15, 2019 Subjective Ms. Arreguin's heart rate is under better control today. She denies any pain. She did have some brief runs of Vtach on the monitor overnight. ROS Constitutional: no chills, aches, sweats or fever Respiratory: no sob,cough, sputum, or wheezing Cardiac: no chest pain, palpitations, edema, orthopnea or lightheadedness GI: no abdominal pain, nausea, vomiting, diarrhea or constipation : no dysuria or hesitancy Extremities: no joint pain or weakness Skin: no rash All other systems reviewed and negative Physical Exam Physical Exam: General: no distress Eyes: normal inspection, PERLL Respiratory: chest non tender, clear to auscultation, normal breath sounds, no respiratory distress, no accessory muscle use Cardiac: regular rate and rhythm, no rub or gallop, no murmur, no edema, no jvd GI/: active bowel sounds, no abd pain or tenderness, soft, non distended Extremities: normal range of motion, normal strength, non tender Neuro/Psych: alert and oriented x 3, normal mood and affect Skin: normal color, dry Results & Data ([facility]) Vital Signs (Past 12 Hours) Vital Signs Temp Pulse Resp BP BP Pulse Ox 12/21/19 11:44 36.6 C 90 17 107/72 90 12/21/19 08:01 36.5 C 85 16 118/82 989 H 12/21/19 04:00 36.8 C 91 H 18 124/86 92 PG Care Time/CCT Total # of Minutes Spent Total Time Spent with Patient: Total time spent is greater than 50% in coordination of care (as documented) at patient's floor/unit and/or counseling patient: Coding Level of Care Code 76089 Subseq Hosp Care Lvl 3 Diagnoses Acute exacerbation of CHF (congestive heart failure) I50.9 Heart failure type: unspecified Pneumonia J18.9 Edema R60.9 Edema type: unspecified Acute kidney injury N17.9 Rapid atrial fibrillation I48.91 Hypoxia R09.02 Combined systolic and diastolic heart failure I50.40 Hypertension I10 Tachycardia R00.0 Cardiomyopathy I42.9 Macrocytosis D75.89 Closed left hip fracture S72.002A Elevated bilirubin R17 Non-sustained ventricular tachycardia I47.2 DVT prophylaxis Z29.9 (1) Acute exacerbation of CHF (congestive heart failure) Heart failure type: unspecified Qualified Code(s): I50.9 - Heart failure, unspecified (2) Edema Edema type: unspecified Qualified Code(s): R60.9 - Edema, unspecified
[2019-12-21] MEDS: DIGOXIN 0.125 MG TAB PO SCH (16:46)
[2019-12-21] MEDS ORDERED: MoRPHine SULFATE 2 MG/ML CARP IV PRN (19:13)
[2019-12-21] MEDS: SIMETHICONE 80 MG CHEW PO PRN (23:51)
[2019-12-22] MEDS: CEFEPIME 2,000 MG in SYRINGE 7.5 ML IV SCH ×2 (01:54→13:04)
[2019-12-22] MEDS: CALCIUM CARBONATE 500 MG CHEWABLE TAB PO PRN ×4 (02:00→20:30)
[2019-12-22] MEDS: AMMONIUM LACTATE 12% LOTION 225 GM BTL EXT SCH ×2 (07:18→20:18)
[2019-12-22] MEDS: ACETAMINOPHEN 325 MG TAB PO PRN ×3 (07:18→23:32)
[2019-12-22] MEDS: FUROSEMIDE 20 MG TAB PO SCH ×2 (07:19→16:32)
[2019-12-22] MEDS: METOPROLOL SUCC 25MG EXT REL TAB PO SCH (07:19)
[2019-12-22] MEDS: ASPIRIN 81 MG ECTAB PO SCH (07:19)
[2019-12-22] MEDS: ENOXAPARIN INJ 40 MG/0.4 ML SYR SQ SCH (07:20)
[2019-12-22 08:38] LABS: Potassium 3.6 mmol/L (3.5-5.1)
[2019-12-22 08:39] LABS: Albumin Level 2.4 gm/dl (3.4-5.0); BUN Creatinine Ratio 22.8 (10-20); Calcium 9.5 mg/dl (8.5-10.1); Creatinine Clr Calc Pharmacy 55.7 ml/min; Est GFR (African American) 60.5; Est GFR (Non-African American) 52.2
[2019-12-22 08:41] LABS: Albumin Globulin Ratio 0.5 (0.9-2); Bilirubin,Total 1.8 mg/dl (0.2-1); Globulin 4.4 gm/dl (2.5-4.0); Total Protein 6.8 gm/dl (6.4-8.2)
[2019-12-22 08:47] LABS: Basophils # (auto) 0.02 K/uL (0-0.2); Basophils % (auto) 0.2 %; Eosinophils # (auto) 0.24 K/uL (0-0.5); Eosinophils % (auto) 2.8 %; Hematocrit (blood only) 37.1 % (37-47); Hemoglobin 11.5 g/dL (12.0-16.0); Immature Granulocytes # (auto) 0.01 K/uL (0.00-0.02); Immature Granulocytes % (auto) 0.1 %; Lymphocytes # (auto) 1.41 K/uL (1.2-3.4); Lymphocytes % (auto) 16.3 %; Mean Corpuscular Hemoglobin 31.4 pg (25-34); Mean Corpuscular Volume 101.4 fL (80-100); Monocytes # (auto) 1.05 K/uL (0.11-0.59); Monocytes % (auto) 12.1 %; Neutrophils # (auto) 5.93 K/uL (1.4-6.5); Neutrophils % (auto) 68.5 %; Platelet Count 275 K/uL (130-400); RDW Coefficient of Variation 16.6 % (11.5-14.5); RDW Standard Deviation 59.6 fL (36.4-46.3); Red Blood Count 3.66 M/uL (4.2-5.4); White Blood Count 8.66 K/uL (4.8-10.8)
[2019-12-22 09:18] LABS: RBC Morphology Unremarkable
--- NOTE | 2019-12-22 14:15 | Hospitalist Progress Note ---
Date of Service December 22, 2019 Assessment & Plan (1) Acute exacerbation of CHF (congestive heart failure): Patient with longstanding afib not on anticoagulation presented with edema and was found to be in afib with RVR 129bpm. Recent weight gain from immobility (secondary to L femoral neck fx) and diet/increased sodium intake resulting in acute exacerbation of mixed systolic and diastolic CHF. Weight on discharge 85.7kg on 11/22. * ECHO February 2019 with normal LV size with severely reduced LV systolic function. EF 25-30%. Global hypokinesis. Mild concentric LVH. Severely dilated RV with reduced systolic function. Severe biatrial dilation. Mild pulm HTN. RSVP 40mmHg. * Repeat ECHO with severely reduced systolic function left and right ventricle. Biatrial dilation. Mild-moderate MR, Severe TR. RVSP elevated at 40-50mmHg. Minimal change compared to echo 02/2019 * Cardiology consulted, chf clinic following * Diuresed with lasix 40mg IV BID with good effect - now changed to home po dosing. Close to last discharge weight at this point * Repeat CXR without evidence of congestive failure, advanced emphysema and cardiomegaly. mod R pleural effusion * Continue daily weights, I&O * Continue to manage heart rate as below (2) Pneumonia: * CXR on 12/15 with possible atelectasis vs pneumonia * Chest 2 view 12/16 with moderate R pleural effusion, slightly increased in size. R basilar densities persist and may represent atelectasis from pleural effusion or pneumonia. cardiomegaly and mild congestive change * Blood cultures 1/2 sets pseudomonas - will recheck blood cultures * Continue IV cefepime (last day 12/28) * Oxygen saturation improving (3) Edema: * Improving * See above * US Doppler NEGATIVE FOR DVT bilateral LE * Wound RN for LE --> continue Amlactin 1gm BID * Patient refused assessment of her skin by wound care 12/19 - encouraged her to allow wound care to assess her skin and care for it. (4) Acute kidney injury: * RESOLVED -- Cr elevated at 2.23 on admit (baseline appears less than 1.0) --> back to baseline * D/C IV lasix -- resumed 60mg PO as taking outpatient (5) Rapid atrial fibrillation: * Heart rate has normalized with administration of IV digoxin, continue po maintenance dosing - level 3/4 was 0.8 - will need to be rechecked in 3 or 4 days * Increased Toprol XL to 37.5mg, pressures tolerating * Will need to closely monitor potassium level as she became hyperkalemic with last attempt at digoxin though it is unclear if the two were related - currently potassium is remaining wnl * Patient has refused anticoagulation. (6) Hypoxia: * improving with diuresis * Will likely need O2 at discharge * Supplemental O2 to maintain sat >88% (7) Combined systolic and diastolic heart failure: * See above (8) Hypertension: * has been hypotensive but this improving * Hold home lisinopril 5mg and continue metoprolol for heart rate (9) Tachycardia: * See above (10) Cardiomyopathy: * See above (11) Macrocytosis: * MCV noted to be >100 * Folate, B12 without deficiency (12) Closed left hip fracture: * Repeat Hip/Pelvis X ray with progressively worsened displacement and foreshortening of the acute transcervical fracture of the left femur with moderate adjacent soft tissue swelling. * Ortho consult - not a surgical candidate at this time. * Tylenol prn pain (13) Elevated bilirubin: * Elevated to 2.2 on 12/14 prior to arrival to ER for admission. Initially trended down but has slowly risen to 1.7 despite diuresis. Alk phos slightly improved but still elevated * Patient continues to refuse gallbladder ultrasound (14) Non-sustained ventricular tachycardia: asymptomatic. Beta alis as above (15) DVT prophylaxis: * Lovenox SQ ordered --> patient previously refusing anticoagulation for afib * Will avoid SCDs give LE changes Dispo: from [facility] for rehab. Repeat blood cultures pending, if negative after 24 hours can likely discharge with IV antibiotics Admission and Anticipated Discharge Date Admission Date: December 15, 2019 Subjective Ms. Arreguin is feeling unwell as she had news that her brother yesterday. She does not have any physical complaints today. ROS Constitutional: no chills, aches, sweats or fever Respiratory: no sob,cough, sputum, or wheezing Cardiac: no chest pain, palpitations, edema, orthopnea or lightheadedness GI: no abdominal pain, nausea, vomiting, diarrhea or constipation : no dysuria or hesitancy Extremities: no joint pain or weakness Skin: no rash All other systems reviewed and negative Physical Exam Physical Exam: General: no distress Eyes: normal inspection, PERLL Respiratory: chest non tender, clear to auscultation, normal breath sounds, no respiratory distress, no accessory muscle use Cardiac: irregular rate and rhythm, no rub or gallop, no murmur, trace pitting edema GI/: active bowel sounds, no abd pain or tenderness, soft, non distended Extremities: normal range of motion, normal strength, non tender Neuro/Psych: alert and oriented x 3, normal mood and affect Skin: normal color, dry, lower extremities with scaly skin Results & Data ([facility]) Vital Signs (Past 12 Hours) Vital Signs Temp Pulse Resp BP BP Pulse Ox 12/22/19 11:55 36.7 C 87 18 115/72 93 12/22/19 07:05 37 C 93 H 16 129/83 96 12/22/19 04:08 36.6 C 103 H 16 114/84 90 PG Care Time/CCT Total # of Minutes Spent Total Time Spent with Patient: Total time spent is greater than 50% in coordination of care (as documented) at patient's floor/unit and/or counseling patient: Coding Level of Care Code 46859 Subseq Hosp Care Lvl 3 Diagnoses Acute exacerbation of CHF (congestive heart failure) I50.9 Heart failure type: unspecified Pneumonia J18.9 Edema R60.9 Edema type: unspecified Acute kidney injury N17.9 Rapid atrial fibrillation I48.91 Hypoxia R09.02 Combined systolic and diastolic heart failure I50.40 Hypertension I10 Tachycardia R00.0 Cardiomyopathy I42.9 Macrocytosis D75.89 Closed left hip fracture S72.002A Elevated bilirubin R17 Non-sustained ventricular tachycardia I47.2 DVT prophylaxis Z29.9 (1) Acute exacerbation of CHF (congestive heart failure) Heart failure type: unspecified Qualified Code(s): I50.9 - Heart failure, unspecified (2) Edema Edema type: unspecified Qualified Code(s): R60.9 - Edema, unspecified
[2019-12-22] MEDS: DIGOXIN 0.125 MG TAB PO SCH (16:32)
[2019-12-23] MEDS: CEFEPIME 2,000 MG in SYRINGE 7.5 ML IV SCH ×2 (00:48→12:38)
[2019-12-23] MEDS: METOPROLOL SUCC 25MG EXT REL TAB PO SCH (08:17)
[2019-12-23] MEDS: ASPIRIN 81 MG ECTAB PO SCH (08:17)
[2019-12-23] MEDS: FUROSEMIDE 20 MG TAB PO SCH ×2 (08:17→16:13)
[2019-12-23] MEDS: AMMONIUM LACTATE 12% LOTION 225 GM BTL EXT SCH ×2 (08:18→20:46)
[2019-12-23] MEDS: ENOXAPARIN INJ 40 MG/0.4 ML SYR SQ SCH (08:18)
[2019-12-23] MEDS: ACETAMINOPHEN 325 MG TAB PO PRN ×2 (08:20→14:19)
[2019-12-23] MEDS: CALCIUM CARBONATE 500 MG CHEWABLE TAB PO PRN (08:20)
--- NOTE | 2019-12-23 10:42 | Heart Failure Progress Note ---
Date of Service December 23, 2019 Assessment & Plan (1) Combined systolic and diastolic heart failure: (2) Cardiomyopathy: (3) Venous stasis dermatitis of both lower extremities: (4) Atrial fibrillation: (5) Medical non-compliance: Plan: Exacerbation likely multifactorial- uncontrolled afib, cardiomyopathy, poor compliance, dietary indiscretion. She is responding well to current diuretic therapy. She is negative >10 L so far and her weight is trending down. Continues to diurese well on po regimen. Continue Lasix 60 mg BID. Kidney function has been stable. Continue close monitoring. Daily standing weights. Strict I&Os. Low sodium diet. Repeat echocardiogram demonstrates long standing severe biventricular systolic dysfunction. EF 20-25%. Patient is not currently on guideline based therapy. Historically patient has been non-compliant on occasion and has refused many medications. She is currently tolerating Metoprolol succinate 37.5 mg daily. Hopefully improved rate control will prevent further decompensation. Lisinopril on hold secondary to JOANIE and hypotension. Recommend follow up with [facility] heart failure program if the patient is agreeable. Primary service feels she would be agreeable to telephone updates and remote weight checks at [facility] at a minimum. Will continue to follow along during hospitalization. CHF recommendations added to DC for SNF. Will need BMP/magnesium within 7 days of discharge. Subjective Patient is resting comfortably in bed eating her breakfast. She denies shortness of breath, cough, or orthopnea. Her lower extremity edema is improving. She continues to diurese, net negative 10.6 so far this admission. Weight is down 24 lb. Results & Data Vital Signs (Past 12 Hours) Vital Signs Temp Pulse Pulse Resp BP Pulse Ox 12/23/19 07:45 97.3 F L 97 H 19 116/79 94 12/23/19 05:06 98.1 F 94 H 18 116/73 94 12/22/19 23:44 97.7 F 84 20 127/87 93 12/22/19 23:03 82 PG Care Time/CCT Total # of Minutes Spent Total Time Spent with Patient: Total time spent is greater than 50% in coordination of care (as documented) at patient's floor/unit and/or counseling patient: Coding Level of Care Code None Diagnoses Combined systolic and diastolic heart failure I50.40 Cardiomyopathy I42.9 Venous stasis dermatitis of both lower extremities I87.2 Atrial fibrillation I48.91 Medical non-compliance Z91.19
[2019-12-23] MEDS ORDERED: KETOROLAC TROMETHAMINE 15 MG/ML VIAL IV ONE (15:44)
[2019-12-23] MEDS: DIGOXIN 0.125 MG TAB PO SCH (16:11)
--- NOTE | 2019-12-23 16:20 | Hospitalist Progress Note ---
Date of Service December 23, 2019 Assessment & Plan (1) Acute exacerbation of CHF (congestive heart failure): Patient with longstanding afib not on anticoagulation presented with edema and was found to be in afib with RVR 129bpm. Recent weight gain from immobility (secondary to L femoral neck fx) and diet/increased sodium intake resulting in acute exacerbation of mixed systolic and diastolic CHF. Weight on discharge 85.7kg on 11/22. * ECHO February 2019 with normal LV size with severely reduced LV systolic function. EF 25-30%. Global hypokinesis. Mild concentric LVH. Severely dilated RV with reduced systolic function. Severe biatrial dilation. Mild pulm HTN. RSVP 40mmHg. * Repeat ECHO with severely reduced systolic function left and right ventricle. Biatrial dilation. Mild-moderate MR, Severe TR. RVSP elevated at 40-50mmHg. Minimal change compared to echo 02/2019 * Cardiology consulted, chf clinic following * Diuresed with lasix 40mg IV BID with good effect - now changed to home po dosing of lasix 60mg po bid. Close to last discharge weight at this point, has lost 10kg body weight * Repeat CXR without evidence of congestive failure, advanced emphysema and cardiomegaly. mod R pleural effusion * Continue daily weights, I&O * Continue to manage heart rate as below (2) Pneumonia: * CXR on 12/15 with possible atelectasis vs pneumonia * Chest 2 view 12/16 with moderate R pleural effusion, slightly increased in size. R basilar densities persist and may represent atelectasis from pleural effusion or pneumonia. cardiomegaly and mild congestive change * Blood cultures 1/2 sets pseudomonas - repeat blood cultures /4 NGTD at 24 hour jeana * Continue IV cefepime (last day 12/28) but could convert to po Levaquin for discharge given it is a Gram negative septicemia * Oxygen saturation improving but still requiring O2 (3) Edema: * Improving * See above * US Doppler NEGATIVE FOR DVT bilateral LE * Wound RN for LE --> continue Amlactin 1gm BID for severe dry skin, cracks * Patient refused assessment of her skin by wound care 3/2 - encouraged her to allow wound care to assess her skin and care for it. (4) Acute kidney injury: * RESOLVED -- Cr elevated at 2.23 on admit (baseline appears less than 1.0) --> back to baseline * D/C IV lasix -- resumed 60mg PO bid as taking outpatient (5) Rapid atrial fibrillation: * Heart rate has normalized with administration of IV digoxin, continue po maintenance dosing - level 12/21 was 0.8 - will need to be rechecked in 3 or 4 days on 12/25 * Increased Toprol XL to 37.5mg, pressures tolerating * Will need to closely monitor potassium level as she became hyperkalemic with last attempt at digoxin though it is unclear if the two were related - currently potassium is remaining wnl but not checked today--> check labs tomorrow * Patient has refused anticoagulation. (6) Hypoxia: * improving with diuresis * Will likely need O2 at discharge * Supplemental O2 to maintain sat >88% (7) Combined systolic and diastolic heart failure: * See above (8) Hypertension: * was hypotensive but now resolved * Hold home lisinopril 5mg and continue metoprolol for heart rate (9) Tachycardia: * rapid Afib, improved but still remains in low 100s * consider increasing Toprol XL to 50mg on discharge (10) Cardiomyopathy: * See above (11) Macrocytosis: * MCV noted to be >100 * Folate, B12 without deficiency * could be early MDS, consider Heme referral as outpt (12) Closed left hip fracture: * Repeat Hip/Pelvis X ray with progressively worsened displacement and foreshortening of the acute transcervical fracture of the left femur with moderate adjacent soft tissue swelling. * Ortho consult - not a surgical candidate at this time. * Tylenol prn pain and added Toradol x 1 dose and prn ibuprofen (13) Elevated bilirubin: * Elevated to 2.2 on 12/14 prior to arrival to ER for admission. Initially trended down but has slowly risen to 1.7 despite diuresis. Alk phos slightly improved but still elevated * Patient continues to refuse gallbladder ultrasound but not having any abd pain (14) Non-sustained ventricular tachycardia: asymptomatic. Beta alis as above could be increased to 50mg (15) DVT prophylaxis: * Lovenox SQ ordered --> patient previously refusing anticoagulation for afib * Will avoid SCDs give LE changes Dispo: from [facility] for rehab. Repeat blood cultures pending, if negative after 48 hours can discharge with po antibiotics tomorrow Also needs improved hip pain control Admission and Anticipated Discharge Date Admission Date: December 15, 2019 Anticipated date of discharge: 12/24/19 Subjective Having some 10/10 in severity left hip pain today. Requests something for pain that won't cause her to "see chairs waving at me as they pass down the hallway." Denies CP or SOB. No nausea, is eating. Tele with Afib rates in 100s, 2-3 beat runs of PVCs Review of Systems Review of Systems: All systems reviewed & are unremarkable except as noted in HPI & below Physical Exam Constitutional: average body habitus; no acute distress Eyes: + anicteric sclerae Neck: trachea midline, no thyromegaly Respiratory: normal respiratory effort, lungs clear to auscultation Cardiovascular: Rate/Rhythm: + tachycardic (mild) and + irregularly irregular Extremities: + edema (1+ woddy edema legs bilat) Chest (Breasts): Chest: normal inspection of chest Gastrointestinal (Abdomen): normal bowel sounds, soft, nontender, no hepatosplenomegaly Musculoskeletal: Extremities: extremities normal to inspection (+TTP over left hip); no cyanosis and no clubbing Skin: + dry skin (severe ichthyosis of legs bilat) Neurologic: moves all extremities and awake; no focal motor deficits Psychiatric: A+Ox3, euthymic affect Lymphatic: no lymphedema Results & Data ([facility]) Vital Signs (Past 12 Hours) Vital Signs Temp Pulse Resp BP BP Pulse Ox 12/23/19 15:26 36.5 C 90 16 116/71 93 12/23/19 11:09 36.7 C 89 20 111/70 93 12/23/19 07:45 36.3 C L 97 H 19 116/79 94 12/23/19 05:06 36.7 C 94 H 18 116/73 94 Laboratory Results labs reviewed PG Care Time/CCT Total # of Minutes Spent Total Time Spent with Patient: Total time spent is greater than 50% in coordination of care (as documented) at patient's floor/unit and/or counseling patient: Coding Level of Care Code 08738 Subseq Hosp Care Lvl 2 Diagnoses Acute exacerbation of CHF (congestive heart failure) I50.9 Heart failure type: unspecified Pneumonia J18.9 Edema R60.9 Edema type: unspecified Acute kidney injury N17.9 Rapid atrial fibrillation I48.91 Hypoxia R09.02 Combined systolic and diastolic heart failure I50.40 Hypertension I10 Tachycardia R00.0 Cardiomyopathy I42.9 Macrocytosis D75.89 Closed left hip fracture S72.002A Elevated bilirubin R17 Non-sustained ventricular tachycardia I47.2 DVT prophylaxis Z29.9 (1) Acute exacerbation of CHF (congestive heart failure) Heart failure type: unspecified Qualified Code(s): I50.9 - Heart failure, unspecified (2) Edema Edema type: unspecified Qualified Code(s): R60.9 - Edema, unspecified
[2019-12-24] MEDS: ACETAMINOPHEN 325 MG TAB PO PRN ×2 (00:18→11:22)
[2019-12-24] MEDS: CEFEPIME 2,000 MG in SYRINGE 7.5 ML IV SCH ×2 (00:18→13:03)
[2019-12-24] MEDS: CALCIUM CARBONATE 500 MG CHEWABLE TAB PO PRN ×2 (01:32→07:28)
[2019-12-24] MEDS: IBUPROFEN 200 MG TAB PO PRN ×2 (05:38→14:52)
[2019-12-24 06:52] LABS: BUN Creatinine Ratio 21.7 (10-20); Est GFR (African American) 50.6; Est GFR (Non-African American) 43.7; Potassium 3.4 mmol/L (3.5-5.1)
[2019-12-24] MEDS: ASPIRIN 81 MG ECTAB PO SCH (08:11)
[2019-12-24] MEDS: FUROSEMIDE 20 MG TAB PO SCH (08:11)
[2019-12-24] MEDS: METOPROLOL SUCC 25MG EXT REL TAB PO SCH (08:11)
[2019-12-24 08:21] LABS: Basophils # (auto) 0.02 K/uL (0-0.2); Basophils % (auto) 0.3 %; Eosinophils # (auto) 0.24 K/uL (0-0.5); Eosinophils % (auto) 3.2 %; Hematocrit (blood only) 38.2 % (37-47); Hemoglobin 11.4 g/dL (12.0-16.0); Immature Granulocytes # (auto) 0.01 K/uL (0.00-0.02); Immature Granulocytes % (auto) 0.1 %; Lymphocytes # (auto) 1.49 K/uL (1.2-3.4); Lymphocytes % (auto) 19.6 %; Mean Corpuscular Hemoglobin 30.5 pg (25-34); Mean Corpuscular Hgb Conc 29.8 g/dL (32-36); Mean Corpuscular Volume 102.1 fL (80-100); Mean Platelet Volume 8.9 fL (7.4-10.4); Monocytes # (auto) 0.73 K/uL (0.11-0.59); Monocytes % (auto) 9.6 %; Neutrophils # (auto) 5.11 K/uL (1.4-6.5); Neutrophils % (auto) 67.2 %; Platelet Count 329 K/uL (130-400); RDW Coefficient of Variation 16.8 % (11.5-14.5); RDW Standard Deviation 61.8 fL (36.4-46.3); Red Blood Count 3.74 M/uL (4.2-5.4)
[2019-12-24] MEDS ORDERED: CEROVITE ADV FORMULA TAB PO SCH (09:00)
[2019-12-24] MEDS: ENOXAPARIN INJ 40 MG/0.4 ML SYR SQ SCH (09:10)
[2019-12-24] MEDS: AMMONIUM LACTATE 12% LOTION 225 GM BTL EXT SCH (09:10)
[2019-12-24 11:32] VITALS: BP 117/68; TEMP 97.5
--- NOTE | 2019-12-24 13:27 | Discharge Summary ---
Date of Service December 24, 2019 Admission HPI Per Admitting Provider 69 year old female with PMH significant for afib (not on anticoagulation), CHF (systolic and diastolic), PVD, HTN, HLD with recent left hip fracture presented to the emergency room with worsening edema over the past week. She states she has been at [facility] since she was discharged at the beginning of Nov following a left hip fracture that did not undergo intervention secondary to lower extremity wounds and poor surgical candidate due to heart function. She states that over the past week she has had a worsening diet and some family issues going on that she did not want to discuss. She states staff at [facility] kept telling her that she was going to , and became tearful during our conversation. She states she has had Kielbasa x 5 and hot dogs along with roast beef, which is unlike her typical diet with oatmeal, rice, peas and fish. She states she has not had pants on for several days secondary to increased swelling and abdominal fullness. Patient takes Lasix 60mg twice daily as an outpatient. She denies pain, and states she had a bowel movement yesterday. She states she has also had significant swelling in her lower extremities. Reported cough, but denies any sputum production other than usual phlegm. She has been undergoing rehab at [facility] for her hip, and states she has been seen by wound care while there. She states she would not like to continue using tramadol for pain, as it has caused her to see things over the past several days. She would not like to consider anticoagulation at this time, as she states she did not like the way it made her stomach feel. Discussed that if she is not willing to pursue anticoagulation, that she should at least have better rate control to allow her heart time to fill and pump more efficiently. She states they tried metoprolol last admission at the same time as her lisinopril, but that she thinks it was a higher dose and that she may be willing to consider starting that as well During conversation, patient removed nasal cannula, and O2 saturation dropped to 74%. ER Course:: Lasix 60mg IV x1. Cefepime 2gm IV. WBC 9.7k, H/h 11.9/38.2. Plt 207. Na 137. K 4.0. INR 1.2. Tbili 1.3, alk phos 166. BNP 82308. Trop 0.052. CXR with RLL opacity and small R pleural effusion, stable moderate cardiomegaly. Cr 2.23. Principal Diagnosis 1) Afib with rapid ventricular rate 2) Heart failure 3) Pseudomonas bacteremia Discharge Exam Constitutional WD/WN, vitals as above Eyes EOM intact bilaterally; no conjunctival abnormality ENMT external ear and nose normal, oropharynx normal Neck trachea midline, no thyromegaly normal visual inspection Respiratory normal respiratory effort, lungs clear to auscultation no respiratory distress Cardiovascular Rate/Rhythm: regular rate and + irregularly irregular Heart Sounds: normal S1 and normal S2 Vessels: no JVD Extremities: no edema Gastrointestinal (Abdomen) Inspection/Auscultation: abdomen normal to inspection; abdomen not distended Musculoskeletal no cyanosis or clubbing, extremities motor strength 5/5 Skin no rashes, warm and dry Neurologic moves all extremities and awake Psychiatric Orientation: alert, oriented to person and cooperative Discharge Data Allergies Allergy/AdvReac Type Severity Reaction Status Date / Time Penicillins Allergy Unknown Unknown Verified 12/15/19 16:02 Consultations 12/15/19 16:13 ED Decision to Admit Stat 12/15/19 21:28 Consult Cardiology Routine 12/19/19 10:06 Consult Orthopedic Surgery Routine 12/20/19 08:04 Consult Palliative Care Routine Ordered Studies 12/16/19 13:00 US venous doppler [facility] Urgent Hospital Course (1) Acute exacerbation of CHF (congestive heart failure): Patient with longstanding afib not on anticoagulation presented with edema and was found to be in afib with RVR 129bpm. Recent weight gain from immobility (secondary to L femoral neck fx) and diet/increased sodium intake resulting in acute exacerbation of mixed systolic and diastolic CHF. Weight on discharge 85.7kg on 11/22. * ECHO February 2019 with normal LV size with severely reduced LV systolic function. EF 25-30%. Global hypokinesis. Mild concentric LVH. Severely dilated RV with reduced systolic function. Severe biatrial dilation. Mild pulm HTN. RSVP 40mmHg. * Repeat ECHO with severely reduced systolic function left and right ventricle. Biatrial dilation. Mild-moderate MR, Severe TR. RVSP elevated at 40-50mmHg. Minimal change compared to echo 02/2019 * Cardiology consulted, chf clinic following * Diuresed with lasix 40mg IV BID with good effect - now changed to home po dosing of lasix 60mg po bid. Close to last discharge weight at this point, has lost 10kg body weight * Repeat CXR without evidence of congestive failure, advanced emphysema and cardiomegaly. mod R pleural effusion * Continue daily weights, I&O * Continue to manage heart rate as below (2) Pneumonia: * CXR on 12/15 with possible atelectasis vs pneumonia * Chest 2 view 12/16 with moderate R pleural effusion, slightly increased in size. R basilar densities persist and may represent atelectasis from pleural effusion or pneumonia. cardiomegaly and mild congestive change * Blood cultures 1/ sets pseudomonas - repeat blood cultures 12/21 NGTD at 48 hour jeana * Continue IV cefepime (last day 12/29) -> Converted to Ciprofloxacin on discharge. * Oxygen saturation improving but still requiring O2 (3) Edema: * Improving * See above * US Doppler NEGATIVE FOR DVT bilateral LE * Wound RN for LE --> continue Amlactin 1gm BID for severe dry skin, cracks * Patient refused assessment of her skin by wound care 12/19 - encouraged her to allow wound care to assess her skin and care for it. (4) Acute kidney injury: * RESOLVED -- Cr elevated at 2.23 on admit (baseline appears less than 1.0) --> back to baseline * D/C IV lasix -- resumed 60mg PO bid as taking outpatient (5) Rapid atrial fibrillation: * Heart rate has normalized with administration of IV digoxin, continue po maintenance dosing - level 12/21 was 0.8 - will need to be rechecked in 3 or 4 days on 12/25 * Increased Toprol XL to 37.5mg, pressures tolerating * Will need to closely monitor potassium level as she became hyperkalemic with last attempt at digoxin though it is unclear if the two were related - currently potassium is remaining wnl but not checked today--> check labs tomorrow * Patient has refused anticoagulation. (6) Hypoxia: * improving with diuresis * Will likely need O2 at discharge * Supplemental O2 to maintain sat >88% (7) Combined systolic and diastolic heart failure: * See above (8) Hypertension: * was hypotensive but now resolved * Hold home lisinopril 5mg and continue metoprolol for heart rate (9) Tachycardia: * rapid Afib, improved but still remains in low 100s * consider increasing Toprol XL to 50mg on discharge (10) Cardiomyopathy: * See above (11) Macrocytosis: * MCV noted to be >100 * Folate, B12 without deficiency * could be early MDS, consider Heme referral as outpt (12) Closed left hip fracture: * Repeat Hip/Pelvis X ray with progressively worsened displacement and foreshortening of the acute transcervical fracture of the left femur with moderate adjacent soft tissue swelling. * Ortho consult - not a surgical candidate at this time. * Tylenol prn pain and added Toradol x 1 dose and prn ibuprofen * Follow up with Chet Razo in 1 week in the office. * Would consider [facility] for palliative care. (13) Elevated bilirubin: * Elevated to 2.2 on 12/14 prior to arrival to ER for admission. Initially trended down but has slowly risen to 1.7 despite diuresis. Alk phos slightly improved but still elevated * Patient continues to refuse gallbladder ultrasound but not having any abd pain (14) Non-sustained ventricular tachycardia: asymptomatic. Beta alis as above could be increased to 50mg (15) DVT prophylaxis: * Lovenox SQ ordered --> patient previously refusing anticoagulation for afib * Will avoid SCDs give LE changes Total Time Total Time Spent Total Time Spent (In Minutes): 35 Discharge Plan Discharge Items Patient Disposition: Transfer Half-Way Fac Reason For Visit: EDEMA, CHF, HYPOXIA Discharge Diagnosis: CHF exacerbation Activity: Resume your previous activity Non-emergency contact: Primary Care Provider Call non-emergency contact if: your symptoms worsen Follow-up/Referrals: Rory Calderon [Primary Care Provider] - Chet Razo DO [Physician] - (Please see in 1-2 weeks for hip pain.) Diet: Heart Healthy and Low Sodium (2gm) Addtl Attending Provider Instructions: 1) Continue Ciprofloxacin 500 mg PO BID for 1 more week (End date: 12/30/2019) for bacteremia. 2) For rapid heart rate, started Toprol XL 37.5 mg daily and digoxin 0.125 mg daily. 2b) Get digoxin level on 12/27/2019. 3) Stopped lisinopril to avoid blood pressure going too low. 4) Continue Lasix 60 mg by mouth 2 times per day. Follow weights as below and contact Martha Carrion. 5) For hip pain, follow up with Dr. Chet Razo in 1 week. Can treat with acetaminophen, tramadol, and/or ibuprofen. Addtl Product Inspection Coordinator Provider Instructions: Document consistent daily weights. Fax to Louise Carrion weekly on Mondays [phone]. Heart healthy diet, less than 2,000 mg daily Fluid restriction < 1800 ml/day Notify heart failure program of 2+ lb weight gain overnight or 5+ lb weight gain in 1 week. [phone] BMP/magnesium 1 week from discharge. Fax results to Louise [phone] Pending Studies at Discharge: No Stand-Alone Forms: My [facility] Skilled Items Patient informed of condition?: Yes DNR: No Discharge Level of Care: Skilled Communicable Disease: No Discharge Prognosis: Stable Lines: None Urinary Catheter: No Medications and DC Order Prescriptions: New metoprolol succinate 25 mg Tablet Extended Release 24 Hr 37.5 mg PO QAM Qty: 1 RF: 0 digoxin 125 mcg (0.125 mg) Tablet 0.125 mg PO DAILY@1600 Qty: 1 RF: 0 ciprofloxacin HCl 500 mg tablet 500 mg PO BID Qty: 1 RF: 0 Continued acetaminophen 500 mg Tablet 1,000 mg PO Q8H PRN (Reason: Pain or fever) RF: 0 aspirin 81 mg Tablet,Delayed Release (Dr/Ec) 81 mg PO DAILY Qty: 30 RF: 3 acetaminophen 325 mg Tablet 650 mg PO Q6H PRN (Reason: Pain) RF: 0 bisacodyl [Dulcolax (bisacodyl)] 10 mg Suppository 10 mg KS DAILY PRN (Reason: Constipation) RF: 0 Enema 19-7 gram/118 mL Enema 118 ml KS DAILY PRN (Reason: Constipation) RF: 0 ondansetron HCl [Zofran] 4 mg Tablet 4 mg PO Q6H PRN (Reason: Nausea) RF: 0 ibuprofen 600 mg Tablet 600 mg PO Q6H PRN (Reason: Pain) RF: 0 tramadol 50 mg tablet 100 mg PO Q6H PRN (Reason: Pain) Qty: 4 RF: 0 furosemide [Lasix] 40 mg Tablet 60 mg PO BID RF: 0 Discontinued lisinopril 5 mg Tablet 5 mg PO DIRECTED RF: 0 Discharge Orders: Discharge Order (Routine); Ordered 12/24/19 Ordered By: Gael Briceno Admission Data Admit Date/Time: 12/15/19 18:39 Attending Provider: Gael Briceno Admit Provider: Kyaw Sands Primary Care Provider: Royr Calderon Other Providers: Kvng Sorto ; Bayron Conklin ; Glen Suarez ; Gael Briceno Coding Level of Care Code D/C Day Management >30 mins Diagnoses Acute exacerbation of CHF (congestive heart failure) I50.9 Heart failure type: unspecified Pneumonia J18.9 Edema R60.9 Edema type: unspecified Acute kidney injury N17.9 Rapid atrial fibrillation I48.91 Hypoxia R09.02 Combined systolic and diastolic heart failure I50.40 Hypertension I10 Tachycardia R00.0 Cardiomyopathy I42.9 Macrocytosis D75.89 Closed left hip fracture S72.002A Elevated bilirubin R17 Non-sustained ventricular tachycardia I47.2 DVT prophylaxis Z29.9
[2019-12-24] MEDS: DIGOXIN 0.125 MG TAB PO SCH (14:53)
[2019-12-24 14:54] VITALS: PULSE 94
[2019-12-24 15:40] VITALS: O2SAT 95
--- NOTE | 2019-12-24 15:57 | Electrocardiogram Report ---
Test Reason : Blood Pressure : / mmHG Vent. Rate : 093 BPM Atrial Rate : 000 BPM P-R Int : 000 ms QRS Dur : 084 ms QT Int : 366 ms P-R-T Axes : 000 -24 108 degrees QTc Int : 455 ms Atrial fibrillation with premature ventricular or aberrantly conducted complexes Minimal voltage criteria for LVH, may be normal variant Nonspecific T wave abnormality Abnormal ECG When compared with ECG of 20-DEC-2019 16:07, QT has lengthened Confirmed by Kota Thacker ([id number]) on 12/24/2019 3:57:14 PM Referred By: Bebo Hartmike Confirmed By:Kota Thacker
== END 2019-12-24 16:00 | DRG 291 ==
LOC: ED 13:38 → 2S 18:39 → SUATTDRO 18:39 → 2S 20:27

== ENCOUNTER 2020-03-14 08:12 | Inpatient (IN) ==
[2020-03-14] MEDS ORDERED: OPTIRAY 320 125ml IV PRN (08:27)
--- NOTE | 2020-03-14 08:28 | CT Scan Report ---
CT head/brain wo con CT DOSE: HISTORY: Mental status change right weak/aphasia eval for cva TECHNIQUE: Multiaxial CT images of the head were performed without the use of intravenous contrast. A dose lowering technique was utilized adhering to the principles of ALARA. Comparison: None. Findings: The paranasal sinuses and mastoid air cells are clear. Slight subtle effacement of the sulc i of the left temporal parietal region in a left middle cerebral arterial distribution. No evidence f or acute intracranial hemorrhage. The ventricular system is midline. No evidence for acute intracrani al hemorrhage. No significant midline shift. Small old right cerebellar infarct. Impression: 1. Probable Infarct left temporal parietal distribution. 2. This potentially relates to a left middle cerebral arterial infarct. 3. No evidence for acute intracranial hemorrhage. ACT 112: Negative or not required by law. The above report was generated using voice recognition software. It may contain grammatical, syntax or spelling errors. Electronically signed by: Zackery Love M.D. 03/14/2020 8:27 AM
[2020-03-14 08:46] LABS: Basophils # (auto) 0.01 K/uL (0-0.2); Basophils % (auto) 0.1 %; Eosinophils # (auto) 0.01 K/uL (0-0.5); Eosinophils % (auto) 0.1 %; Hematocrit (blood only) 38.6 % (37-47); Hemoglobin 12.5 g/dL (12.0-16.0); Immature Granulocytes # (auto) 0.03 K/uL (0.00-0.02); Immature Granulocytes % (auto) 0.3 %; Lymphocytes # (auto) 1.01 K/uL (1.2-3.4); Lymphocytes % (auto) 9.2 %; Mean Corpuscular Hemoglobin 32.4 pg (25-34); Mean Corpuscular Hgb Conc 32.4 g/dL (32-36); Mean Platelet Volume 8.9 fL (7.4-10.4); Monocytes # (auto) 0.93 K/uL (0.11-0.59); Monocytes % (auto) 8.5 %; Neutrophils # (auto) 8.95 K/uL (1.4-6.5); Neutrophils % (auto) 81.8 %; Platelet Count 183 K/uL (130-400); RDW Coefficient of Variation 14.1 % (11.5-14.5); RDW Standard Deviation 51.6 fL (36.4-46.3); Red Blood Count 3.86 M/uL (4.2-5.4); White Blood Count 10.94 K/uL (4.8-10.8)
--- NOTE | 2020-03-14 08:51 | CT Scan Report ---
CT angio head w con CLINICAL HISTORY: right weak/aphasia eval for cva TECHNIQUE: CT angiography of the head was performed in a dynamic helical fashion during intravenous a dministration of 120 cc of Optiray 320. MIP imaging was performed. A dose lowering technique was util ized adhering to the principles of ALARA. CT DOSE: COMPARISON STUDY: No previous studies for comparison. The study is limited from a technical standpoint due to difficulties with intravenous access line, lee bsequent timing. FINDINGS: There are no lesion suspicious for aneurysm. There are no major intracranial branch occlusi ons. The dural venous sinuses appear patent. IMPRESSION: Unremarkable CT angiography of the brain given the technical limitations of the examinat ion ACT 112: Negative or not required by law. Electronically signed by: Christiano Wan M.D. 03/14/2020 8:50 AM
--- NOTE | 2020-03-14 08:52 | CT Scan Report ---
CT angio neck with con CLINICAL HISTORY: Achalasia. Possible acute stroke. COMPARISON STUDY: No previous studies for comparison. TECHNIQUE: CT angiography was performed from the aortic arch to the skull base. MIP imaging was perfo rmed. The patient was scanned in a dynamic helical fashion during intravenous administration of 120 c c of Optiray 320. A dose lowering technique was utilized adhering to the principles of ALARA. CT DOSE: 1769.61 mGy.cm Technique: CT angiogram of the carotid and vertebral arteries was obtained using intravenous contrast and 3-D reconstruction. NASCET criteria was utilized. Findings: The examination was limited from a technical standpoint. There are borderline enlarged mediastinal lymph nodes. The right carotid revealed no evidence of aneurysm and no evidence of dissection. There is no evidenc e of hemodynamic significant stenosis. The left carotid revealed no evidence of hemodynamic significant stenosis. There is no evidence of an eurysm. There is no evidence of dissection. There is no evidence of hemodynamically significant vertebral stenosis. There is no evidence of verte bral dissection. IMPRESSION: No evidence of hemodynamically significant carotid or vertebral artery stenosis. No evidence of disse ction. ACT 112: Negative or not required by law. Electronically signed by: Christiano Wan M.D. 03/14/2020 8:51 AM
[2020-03-14 09:03] LABS: INR 1.2 (0.9-1.1); Partial Thromboplastin Ratio 1.1; Partial Thromboplastin Time 31.3 Seconds (21.0-31.0); Prothrombin Time 12.6 Seconds (9.0-12.0)
[2020-03-14 09:07] LABS: Albumin Level 3.2 gm/dl (3.4-5.0); BUN Creatinine Ratio 20.9 (10-20); Calcium 9.5 mg/dl (8.5-10.1); Creatinine Clr Calc Pharmacy 54.3 ml/min; Est GFR (African American) 73.1; Potassium 3.6 mmol/L (3.5-5.1)
[2020-03-14 09:13] LABS: Albumin Globulin Ratio 0.9 (0.9-2); Bilirubin,Total 3.8 mg/dl (0.2-1); Globulin 3.7 gm/dl (2.5-4.0); Total Protein 6.9 gm/dl (6.4-8.2); Troponin I 0.038 ng/ml (0-0.045)
--- NOTE | 2020-03-14 09:15 | Emergency Department Note ---
History of Present Illness General Chief complaint: Stroke Alert Source: EMS and other (Jillian nurse records manager at [facility]) Mode of arrival: EMS Limitations: altered mental status History of Present Illness Provider complaint: Stroke symptoms Onset (ago): hour(s) (Noticed that approximately 6 AM) Location: upper extremity and right Severity: severe Quality: + other (Not moving right arm) Relieved By: + none Associated symptoms: + other (Aphasia) This is a 70-year-old female with a history of atrial fibrillation not on anticoagulation presenting with strokelike symptoms. History is limited as the patient is a phasic. I did obtain history from Jillian at the [facility] as well as the plate filler via medical command. The patient was noted at 6 AM to be slumped somewhat to the right side. At 721 she was not speaking and not sitting up and was not moving the right arm at all. They stated at 2 AM the patient use the bedpan and seemed herself. At 4:30 AM she had blood drawn but they did not speak to the people who do her blood and whether or not they noticed any deficit. Home Medications Home Medications Medication Instructions Recorded Confirmed Type furosemide [Lasix] 60 mg PO DAILY@0811/07/19 03/14/20 History acetaminophen 650 mg PO Q6H PRN 12/15/19 03/14/20 History ondansetron HCl [Zofran] 4 mg PO Q6H PRN 12/15/19 03/14/20 History digoxin 0.125 mg PO DAILY@1600 #1 tab 12/24/19 03/14/20 Rx aspirin 81 mg PO DAILY@0903/14/20 03/14/20 History magnesium hydroxide [Milk of 30 ml PO DAILY PRN 03/14/20 03/14/20 History Magnesia] metoprolol succinate 37.5 mg PO DAILY@79903/14/20 03/14/20 History multivit,stress formula-zinc 1 tab PO DAILY@79903/14/20 03/14/20 History [Stress Formula with Zinc] potassium chloride 40 meq PO DAILY@79903/14/20 03/14/20 History tramadol 50 mg PO Q6H PRN 03/14/20 03/14/20 History Allergies Allergy/AdvReac Type Severity Reaction Status Date / Time Penicillins Allergy Unknown Unknown Verified 03/14/20 08:43 Past Med/Surg History Medical History Acute combined systolic and diastolic congestive heart failure (Acute) Acute renal insufficiency 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 Goals of care, counseling/discussion HTN (hypertension) (Chronic) Hyperlipemia (Chronic) Hypotension With her hypotension, her Hb is up from prior, and creatinine has bumped significantly in one day so appears to be intravascularly dry - unsure how she will tolerate fluid challenge but may make her tolerate anesthesia better Tachycardia Visual impairment (Chronic) Surgical History No pertinent past surgical history Family History Other No pertinent family history Social History Preferred Language: Qatari Communication Ability: Impaired Retail Center Receptionist Required: No Beliefs That Will Affect Care: None marital status: / Current Living Situation: Detention Current Living Situation Comment: from [facility] Feels Safe at Home: Yes Safety Concerns: Feels Safe At This Time Smoking Status: Former smoker Tobacco Type: cigarettes ; Cigarettes Per Day: 10 ; Do You Dip or Chew Tobacco: No ; Second Hand Exposure: No ; Tobacco Cessation Education Requested by Patient: No Hx Alcohol Use: No Hx Substance Use: No Review of Systems See HPI for pertinent positives & negatives. Unobtainable due to cognitive status Physical Exam Vital Signs Vital Signs - 24 hr 03/14/20 08:36 03/14/20 08:47 03/14/20 08:49 Temperature 36.8 C Temperature Source Oral Pulse Rate 140 H Pulse Rate [Apical] Respiratory Rate 18 Blood Pressure 139/107 H Blood Pressure [Right Arm] Blood Pressure Mean 117 Blood Pressure Mean [Right Arm] Pulse Oximetry 85 L 96 Oxygen Delivery Method Nasal Cannula Nasal Cannula Nasal Cannula Oxygen Flow Rate 2 2 2 Sepsis Recent Fever Within 48 Hours No Sepsis New/Unexplained Change in Mental Status No Sepsis Action Taken by Nursing No Action Required 03/14/20 08:53 03/14/20 09:26 03/14/20 10:19 Temperature Temperature Source Pulse Rate Pulse Rate [Apical] 109 H 92 H 102 H Respiratory Rate 20 16 20 Blood Pressure Blood Pressure [Right Arm] 134/90 154/102 H 126/80 Blood Pressure Mean Blood Pressure Mean [Right Arm] 104 119 95 Pulse Oximetry 97 97 Oxygen Delivery Method Nasal Cannula Nasal Cannula Oxygen Flow Rate 4 4 Sepsis Recent Fever Within 48 Hours Sepsis New/Unexplained Change in Mental Status Sepsis Action Taken by Nursing The physical exam is limited due to the patient's condition. Constitutional: Vital signs reviewed. Eyes: Pupils are equal round reactive to light. Conjunctiva are noninjected. HENT: Normocephalic atraumatic. Respiratory: Clear to auscultation bilaterally. Breath sounds are equal bilaterally. Cardiovascular: Tachycardic. Irregularly irregular rhythm. Rate is 119. GI: Soft, nondistended and nontender. Bowel sounds are present. Musculoskeletal: No peripheral edema. Integumentary: No cyanosis. Neurological: The patient is somnolent but arousable. Flaccid paralysis of the right arm. Aphasic. No obvious facial droop. She follows minimal commands. She is able to keep the right foot off the bed but not the left. Psychiatric: Unable to assess. Course Administered Medications Discontinued Medications Aspirin (Aspirin) 300 mg NV ONE ONE Stop: 03/14/20 09:45 Last Admin: 03/14/20 10:27 Dose: 300 mg Documented by: [id number] Ioversol (Optiray 320 125ml) 120 ml IV ONCE PRN PRN Reason: Interaction Checking Stop: 03/18/20 08:26 Last Admin: 03/14/20 08:27 Dose: 120 ml Documented by: [id number] Critical Care Time Critical Care Time: Yes Total Critical Care Time: 35 I have personally spent approximately 35 minutes of critical care time in the direct management of this patient. This includes bedside care, interpretation of diagnostic studies, and testing, discussion with consultants, patient, and family members, and other required patient management activities. These minutes are in excess of all separately billable procedures. Medical Decision Making Differential Diagnosis CVA, MCA infarct, ICH, encephalopathy, brain mass Medical Records Attestation: I reviewed the patient's medical records. The patient was admitted in December of this year for A. fib with RVR and CHF. She was not placed on anticoagulation because the patient stated that it upset her stomach. Home Medications Current Medication List: was personally reviewed by me Laboratory Data Attestation: I reviewed the patient's lab results. Result diagrams: 03/14/20 08:36 03/14/20 08:36 Lab Results 03/14/20 03/14/20 03/14/20 Range/Units 08:32 08:36 08:36 WBC 10.94 H (4.8-10.8) K/uL RBC 3.86 L (4.2-5.4) M/uL Hgb 12.5 (12.0-16.0) g/dL Hct 38.6 (37-47) % MCV 100.0 (80-100) fL MCH 32.4 (25-34) pg MCHC 32.4 (32-36) g/dL RDW Std Deviation 51.6 H (36.4-46.3) fL RDW Coeff of Malia 14.1 (11.5-14.5) % Plt Count 183 (130-400) K/uL MPV 8.9 (7.4-10.4) fL Immature Gran % (Auto) 0.3 % Neut % (Auto) 81.8 % Lymph % (Auto) 9.2 % [place] % (Auto) 8.5 % Eos % (Auto) 0.1 % Baso % (Auto) 0.1 % Immature Gran # (Auto) 0.03 H (0.00-0.02) K/uL Neut # (Auto) 8.95 H (1.4-6.5) K/uL Lymph # (Auto) 1.01 L (1.2-3.4) K/uL [place] # (Auto) 0.93 H (0.11-0.59) K/uL Eos # (Auto) 0.01 (0-0.5) K/uL Baso # (Auto) 0.01 (0-0.2) K/uL PT (9.0-12.0) Seconds INR (0.9-1.1) APTT (21.0-31.0) Seconds PTT Ratio Sodium (136-145) mmol/L Potassium (3.5-5.1) mmol/L Chloride (98-107) mmol/L Carbon Dioxide (21-32) mmol/L Anion Gap (3-11) BUN (7-18) mg/dl Creatinine (0.6-1.2) mg/dl Est Cr Clr Drug Dosing ml/min Est GFR ( Amer) Est GFR (Non-Af Amer) BUN/Creatinine Ratio (10-20) Glucose (70-99) mg/dl POC Glucose 128 H (70-99) mg/dl Calcium (8.5-10.1) mg/dl Magnesium (1.8-2.4) mg/dl Total Bilirubin (0.2-1) mg/dl AST (15-37) U/L ALT (12-78) U/L Alkaline Phosphatase (45-117) U/L Troponin I (0-0.045) ng/ml Total Protein (6.4-8.2) gm/dl Albumin (3.4-5.0) gm/dl Globulin (2.5-4.0) gm/dl Albumin/Globulin Ratio (0.9-2) Blood Type A Positive Antibody Screen NEGATIVE 03/14/20 03/14/20 Range/Units 08:36 08:36 WBC (4.8-10.8) K/uL RBC (4.2-5.4) M/uL Hgb (12.0-16.0) g/dL Hct (37-47) % MCV (80-100) fL MCH (25-34) pg MCHC (32-36) g/dL RDW Std Deviation (36.4-46.3) fL RDW Coeff of Malia (11.5-14.5) % Plt Count (130-400) K/uL MPV (7.4-10.4) fL Immature Gran % (Auto) % Neut % (Auto) % Lymph % (Auto) % [place] % (Auto) % Eos % (Auto) % Baso % (Auto) % Immature Gran # (Auto) (0.00-0.02) K/uL Neut # (Auto) (1.4-6.5) K/uL Lymph # (Auto) (1.2-3.4) K/uL [place] # (Auto) (0.11-0.59) K/uL Eos # (Auto) (0-0.5) K/uL Baso # (Auto) (0-0.2) K/uL PT 12.6 H (9.0-12.0) Seconds INR 1.2 H (0.9-1.1) APTT 31.3 H (21.0-31.0) Seconds PTT Ratio 1.1 Sodium 135 L (136-145) mmol/L Potassium 3.6 (3.5-5.1) mmol/L Chloride 99 (98-107) mmol/L Carbon Dioxide 28 (21-32) mmol/L Anion Gap 7.0 (3-11) BUN 19 H (7-18) mg/dl Creatinine 0.91 (0.6-1.2) mg/dl Est Cr Clr Drug Dosing 54.3 ml/min Est GFR ( Amer) 73.1 Est GFR (Non-Af Amer) 63.0 BUN/Creatinine Ratio 20.9 H (10-20) Glucose 138 H (70-99) mg/dl POC Glucose (70-99) mg/dl Calcium 9.5 (8.5-10.1) mg/dl Magnesium 2.0 (1.8-2.4) mg/dl Total Bilirubin 3.8 H (0.2-1) mg/dl AST 16 (15-37) U/L ALT 16 (12-78) U/L Alkaline Phosphatase 168 H (45-117) U/L Troponin I 0.038 (0-0.045) ng/ml Total Protein 6.9 (6.4-8.2) gm/dl Albumin 3.2 L (3.4-5.0) gm/dl Globulin 3.7 (2.5-4.0) gm/dl Albumin/Globulin Ratio 0.9 (0.9-2) Blood Type Antibody Screen Imaging Data Radiologist's Impression: CT angio neck with con CLINICAL HISTORY: Achalasia. Possible acute stroke. COMPARISON STUDY: No previous studies for comparison. TECHNIQUE: CT angiography was performed from the aortic arch to the skull base. MIP imaging was performed. The patient was scanned in a dynamic helical fashion during intravenous administration of 120 cc of Optiray 320. A dose lowering technique was utilized adhering to the principles of ALARA. CT DOSE: 1769.61 mGy.cm Technique: CT angiogram of the carotid and vertebral arteries was obtained using intravenous contrast and 3-D reconstruction. NASCET criteria was utilized. Findings: The examination was limited from a technical standpoint. There are borderline enlarged mediastinal lymph nodes. The right carotid revealed no evidence of aneurysm and no evidence of dissection. There is no evidence of hemodynamic significant stenosis. The left carotid revealed no evidence of hemodynamic significant stenosis. There is no evidence of aneurysm. There is no evidence of dissection. There is no evidence of hemodynamically significant vertebral stenosis. There is no evidence of vertebral dissection. IMPRESSION: No evidence of hemodynamically significant carotid or vertebral artery stenosis. No evidence of dissection. ACT 112: Negative or not required by law. Electronically signed by: Christiano Wan M.D. 03/14/2020 8:[address] angio head w con CLINICAL HISTORY: right weak/aphasia eval for cva TECHNIQUE: CT angiography of the head was performed in a dynamic helical fashion during intravenous administration of 120 cc of Optiray 320. MIP imaging was performed. A dose lowering technique was utilized adhering to the principles of ALARA. CT DOSE: COMPARISON STUDY: No previous studies for comparison. The study is limited from a technical standpoint due to difficulties with intravenous access line, subsequent timing. FINDINGS: There are no lesion suspicious for aneurysm. There are no major intracranial branch occlusions. The dural venous sinuses appear patent. IMPRESSION: Unremarkable CT angiography of the brain given the technical limitations of the examination ACT 112: Negative or not required by law. Electronically signed by: Christiano Wan M.D. 03/14/2020 8:[address] head/brain wo con CT DOSE: HISTORY: Mental status change right weak/aphasia eval for cva TECHNIQUE: Multiaxial CT images of the head were performed without the use of intravenous contrast. A dose lowering technique was utilized adhering to the principles of ALARA. Comparison: None. Findings: The paranasal sinuses and mastoid air cells are clear. Slight subtle effacement of the sulci of the left temporal parietal region in a left middle cerebral arterial distribution. No evidence for acute intracranial hemorrhage. The ventricular system is midline. No evidence for acute intracranial hemorrhage. No significant midline shift. Small old right cerebellar infarct. Impression: 1. Probable Infarct left temporal parietal distribution. 2. This potentially relates to a left middle cerebral arterial infarct. 3. No evidence for acute intracranial hemorrhage. ACT 112: Negative or not required by law. The above report was generated using voice recognition software. It may contain grammatical, syntax or spelling errors. Electronically signed by: Zackery Love M.D. 03/14/2020 8:27 AM ECG Data Attestation: I personally reviewed and interpreted this ECG as follows: Indication: + other (Stroke symptoms) Rate (beats per minute): 119 Rhythm: + atrial fibrillation ECG [place]: + Left axis deviation ECG ST segments: no ST elevation ECG Findings: + PVCs Blood Pressure Blood Pressure Findings: Elevated blood pressure Blood Pressure Disposition: further management by hospitalist KENISHA Narrative I did provide prehospital medical command for the physician. A stroke alert was immediately called. I did order a stat CT of the brain and CT angiogram of the head and neck. I did review the images myself as well as the radiology report as described above. She has a left MCA infarct. There is no acute abnormality on the CT angiogram. I did evaluate the patient as noted above. She is a phasi c and has flaccid paralysis of the right upper extremity. I did place an order for continuous cardiac monitoring. The monitor showed atrial fibrillation with a rate of 110. The rhythm remained the same but her heart rate came down to 92. I did order and personally review the patient's 12-lead EKG as described above. She has atrial fibrillation with RVR. I did order and personally reviewed the images of the patient's chest x-ray as described above. I did order and review the patient's blood work as noted in the electronic medical record. Her white blood cell count is 10.9. Electrolytes are unremarkable except for a sodium of 135. Troponin is negative. PT and PTT are slightly elevated. I did reassess the patient several times. She has no improvement of her symptoms. The patient was seen by Dr. Marie of [facility] stroke neurology. She felt that the patient was not a IV TPA candidate as she has significant changes on CT scan which suggested that this occurred sometime ago. She also did not have a well-established last known well. The last time she was seen by the staff was at 2 AM. She did have blood drawn at 6 4:30 AM but it is unclear if she was having symptoms at that time. CT angiogram shows no lesions amenable to endovascular intervention. The stroke neurologist therefore recommended supportive care in our hospital. I did give her aspirin NV. I did discuss case with the hospitalist and complex case manager. I did reassess her several times and she had no improvement of her symptoms. Impression & Plan Acute ischemic cerebrovascular accident (CVA) involving left middle cerebral artery territory, Atrial fibrillation with rapid ventricular response Discharge Plan Visit Data *Final* Discharge Date/Time: 03/14/20 10:50 Chief Complaint: Stroke Alert ED Provider: Wyatt Garay Discharge Problem: Acute ischemic cerebrovascular accident (CVA) involving left middle cerebral artery territory, Atrial fibrillation with rapid ventricular response Patient Disposition: Admitted As Inpatient Discharge Instructions Interventions: ED Discharge Assessment Last Done: 03/14/20 10:50
[2020-03-14] MEDS ORDERED: ASPIRIN 300 MG SUPP PR ONE (09:44)
--- NOTE | 2020-03-14 09:57 | XRay Report ---
XR chest 1V portable CLINICAL HISTORY: stroke mental status change COMPARISON STUDY: 12/18/2019 FINDINGS: Cardiomegaly considered stable. Lungs are grossly clear. Slight bronchovascular prominence considered chronic. IMPRESSION: 1. Stable cardiomegaly. 2. Slight chronic prominence of pulmonary vasculature. ACT 112: Negative or not required by law. The above report was generated using voice recognition software. It may contain grammatical, syntax or spelling errors. Electronically signed by: Zackery Love M.D. 03/14/2020 9:56 AM
[2020-03-14] MEDS ORDERED: ONDANSETRON INJ 2 MG/ML 2 ML VIAL IV PRN (11:25)
--- NOTE | 2020-03-14 13:18 | History & Physical Report ---
Date of Service March 14, 2020 Assessment & Plan (1) Acute ischemic cerebrovascular accident (CVA) involving left middle cerebral artery territory: Likely embolic stroke from her atrial fibrillation. - MRI brain - Neurology consult - Palliative care consulted - DEVICE TEST ENGINEER for swallow evaluation - PT/OT - ASA 81 PO or MT as able (2) Atrial fibrillation with rapid ventricular response: Known afib which has been hard to control in the past as she is only s omewhat willing to take certain medications. - Continue oral meds as approved by DEVICE TEST ENGINEER - Metoprolol IV PRN for HR > 110 - Hold anticoagulation for now as patient has categorically refused over months and starting anticoagulation would be in contra-indication of her wishes. (3) Combined systolic and diastolic heart failure: Prior episode of CHF. Echo in 11/2019 showed EF 20-25%. Dry weight was ~84 kg previously; she is now down to 71 kg on admission. - Monitor I&Os, weights - Hold Lasix for now as her weight is down considerably from prior (4) Hypertension: Normally on Lasix and beta-alis. BP presently 165/100. - Holding oral meds - Will give beta-alis IV as needed (5) DVT prophylaxis: Heparin 5000 units Q12h I spoke with Ms. Arreguin's son today. Discussed my concern about her speech and potential for recovery. He is in agreement with her POLST sent by [facility] that she presently be Full Code. Admission and Anticipated Discharge Date Admission Date: March 14, 2020 History of Present Illness Primary Care Provider: Bebo Corea 70yo F w/ hx atrial fibrillation who presents with likely stroke. All history is per report as the patient is non-verbal at present. Per report, the patient was assessed at approximately 2 AM without any concerns. She had her blood drawn at approximately 5 AM; however, there is no indication that she was fully assessed at that time. At approximately 6:30 AM, the staff noted that she was nonverbal, minimally responsive, had right-sided flaccid paralysis, and a right-sided facial droop. EMS was called and she was transported to the emergency department at that time. CTA of the head and neck showed no acute occlusion and due to the delay in arrival, she is not a TPA candidate. She has a known history of atrial fibrillation, but unfortunately is not on anticoagulation due to patient's preference. It is presumed that she has had an embolic stroke. At present, the patient can minimally follow simple commands (will move her left arm when asked to give a thumbs up). She does nod and shake her head to some questions, but cannot reliably answer any review of systems. Allergies Allergy/AdvReac Type Severity Reaction Status Date / Time Penicillins Allergy Unknown Unknown Verified 03/14/20 08:43 Home Medications Home Medications Medication Instructions Recorded Confirmed Type furosemide [Lasix] 60 mg PO DAILY@0800 11/07/19 03/14/20 History acetaminophen 650 mg PO Q6H PRN 12/15/19 03/14/20 History ondansetron HCl [Zofran] 4 mg PO Q6H PRN 12/15/19 03/14/20 History digoxin 0.125 mg PO DAILY@1600 #1 tab 12/24/19 03/14/20 Rx aspirin 81 mg PO DAILY@0903/14/20 03/14/20 History magnesium hydroxide [Milk of 30 ml PO DAILY PRN 03/14/20 03/14/20 History Magnesia] metoprolol succinate 37.5 mg PO DAILY@0800 03/14/20 03/14/20 History multivit,stress formula-zinc 1 tab PO DAILY@0800 03/14/20 03/14/20 History [Stress Formula with Zinc] potassium chloride 40 meq PO DAILY@0800 03/14/20 03/14/20 History tramadol 50 mg PO Q6H PRN 03/14/20 03/14/20 History Past Med/Surg History Medical History Acute combined systolic and diastolic congestive heart failure (Acute) Acute renal insufficiency 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 Goals of care, counseling/discussion HTN (hypertension) (Chronic) Hyperlipemia (Chronic) Hypotension With her hypotension, her Hb is up from prior, and creatinine has bumped significantly in one day so appears to be intravascularly dry - unsure how she will tolerate fluid challenge but may make her tolerate anesthesia better Tachycardia Visual impairment (Chronic) Surgical History No pertinent past surgical history Family History Other No pertinent family history Social History Preferred Language: Russian Communication Ability: Impaired Patent Clerk Required: No Beliefs That Will Affect Care: None marital status: / Current Living Situation: [facility] Current Living Situation Comment: from [facility] Feels Safe at Home: Yes Safety Concerns: Feels Safe At This Time Smoking Status: Former smoker Tobacco Type: cigarettes ; Cigarettes Per Day: 10 ; Do You Dip or Chew Tobacco: No ; Second Hand Exposure: No ; Tobacco Cessation Education Requested by Patient: No Hx Alcohol Use: No Hx Substance Use: No Review of Systems Review of Systems: Unobtainable due to cognitive status and Unobtainable due to reduced consciousness Physical Exam Constitutional: WD/WN, vitals as above + acute distress, + frail appearing and cooperative Eyes: EOM intact bilaterally; no conjunctival abnormality ENMT: external ear and nose normal, oropharynx normal Neck: trachea midline, no thyromegaly normal visual inspection Respiratory: normal respiratory effort, lungs clear to auscultation no respiratory distress Cardiovascular: Rate/Rhythm: + tachycardic and + irregularly irregular Heart Sounds: normal S1 and normal S2 Vessels: no JVD Extremities: no edema Gastrointestinal (Abdomen): Inspection/Auscultation: abdomen normal to inspection; abdomen not distended Musculoskeletal: no cyanosis or clubbing, extremities motor strength 5/5 Skin: no rashes, warm and dry Neurologic: moves all extremities and awake Psychiatric: Orientation: alert, oriented to person and cooperative Results & Data Results & Data ([facility]) Vital Signs (Past 12 Hours) Vital Signs Temp Pulse Pulse Resp BP BP BP 03/14/20 12:21 109 H 03/14/20 11:35 36.7 C 93 H 18 165/98 H 03/14/20 10:19 102 H 20 126/80 03/14/20 09:26 92 H 16 154/102 H 03/14/20 08:53 109 H 20 134/90 03/14/20 08:47 03/14/20 08:36 36.8 C 140 H 18 139/107 H Pulse Ox 03/14/20 12:21 03/14/20 11:35 97 03/14/20 10:19 97 03/14/20 09:26 03/14/20 08:53 97 05/26/20 08:47 96 03/14/20 08:36 85 L Code Status & VTE Plan VTE Prophylaxis Plan VTE Prophylaxis will be ordered: Yes PG Care Time/CCT Total # of Minutes Spent Total Time Spent with Patient: Total time spent is greater than 50% in coordination of care (as documented) at patient's floor/unit and/or counseling patient: Coding Level of Care Code 47535 Initial Inpt Care Lvl 3 Diagnoses Acute ischemic cerebrovascular accident (CVA) involving left middle cerebral artery territory I63.512 Atrial fibrillation with rapid ventricular response I48.91 Combined systolic and diastolic heart failure I50.40 Hypertension I10 DVT prophylaxis Z29.9
--- NOTE | 2020-03-14 13:52 | XRay Report ---
XR hip LT 2V w pelvis CLINICAL HISTORY: Femur fracture COMPARISON: 12/19/2019 DISCUSSION: Again evident is a displaced subcapital left hip fracture area there is evidence for mild bony resorption at the fracture site. There is no dislocation. There is an indwelling Shel[place] catheter . IMPRESSION: Chronic, displaced subcapital left hip fracture. ACT 112: Negative or not required by law. Electronically signed by: Christiano Wan M.D. 03/14/2020 1:50 PM
--- NOTE | 2020-03-14 15:01 | Magnetic Resonance Report ---
Brain MRI WITHOUT CONTRAST HISTORY: Stroke TECHNIQUE: Multiplanar multisequence MRI of the brain was performed without the use of contrast. Roberto dard axial T1 sequences were performed. COMPARISON STUDY: Head CT 03/14/2020. FINDINGS: Patchy area of restricted diffusion involving the left posterior frontal lobe, left tempora l lobe, as well as the left subinsular cortex consistent with a left MCA territory infarct. This alana ures a maximal size of 6.4 cm. No definite mass, hematoma, or midline shift. Cytotoxic edema at the l eft infarct. Old small infarcts within the cerebellar hemispheres. Mild microvascular ischemic change s noted within the periventricular location. The orbits unremarkable. Paranasal sinuses and mastoid a ir cells are clear. The major vascular flow voids at the skull base are well-maintained. Mild atrophi c changes identified within the brain. IMPRESSION: Confirmation of a moderate sized acute left MCA territory infarct as described above. ACT 112: Negative or not required by law. Electronically signed by: Iam Moran M.D. 03/14/2020 3:00 PM
--- NOTE | 2020-03-14 16:06 | XCELERA ---
[id number]
--- NOTE | 2020-03-14 16:08 | Electrocardiogram Report ---
Test Reason : Blood Pressure : / mmHG Vent. Rate : 119 BPM Atrial Rate : 115 BPM P-R Int : 000 ms QRS Dur : 092 ms QT Int : 274 ms P-R-T Axes : 000 -35 114 degrees QTc Int : 385 ms Poor data quality, interpretation may be adversely affected Atrial fibrillation with rapid ventricular response with premature ventricular or aberrantly conducte d complexes Left axis deviation T wave abnormality, consider lateral ischemia Abnormal ECG When compared with ECG of 24-DEC-2019 10:06, Non-specific change in ST segment in Lateral leads Nonspecific T wave abnormality no longer evident in Inferior leads T wave inversion now evident in Lateral leads Confirmed by Kota Thacker ([id number]) on 03/14/2020 4:08:31 PM Referred By: Bebo Corae Confirmed By:Kota Thacker
[2020-03-14] MEDS: METOPROLOL TARTRATE 1 MG/ML VIAL IV PRN (16:27)
[2020-03-14] MEDS ORDERED: ACETAMINOPHEN SUSP 325 MG/10.15 ML UDC PO PRN (17:32)
[2020-03-14] MEDS: HEPARIN SOD 5,000 UNIT/0.5 ML VIAL SQ SCH (21:31)
[2020-03-15] MEDS: METOPROLOL TARTRATE 1 MG/ML VIAL IV PRN ×5 (02:22→19:19)
[2020-03-15] MEDS ORDERED: METOPROLOL TARTRATE 1 MG/ML VIAL IV STA ×2 (04:11→04:49)
[2020-03-15 04:27] LABS: Hemoglobin 13.4 g/dL (12.0-16.0); Mean Corpuscular Hemoglobin 32.1 pg (25-34); Mean Corpuscular Hgb Conc 31.9 g/dL (32-36); Mean Corpuscular Volume 100.5 fL (80-100); Mean Platelet Volume 9.1 fL (7.4-10.4); Platelet Count 214 K/uL (130-400); RDW Coefficient of Variation 14.1 % (11.5-14.5); RDW Standard Deviation 51.6 fL (36.4-46.3); Red Blood Count 4.18 M/uL (4.2-5.4); White Blood Count 11.69 K/uL (4.8-10.8)
[2020-03-15 04:47] LABS: BUN Creatinine Ratio 19.5 (10-20); Calcium 9.6 mg/dl (8.5-10.1); Creatinine Clr Calc Pharmacy 52.1 ml/min; Est GFR (African American) 69.4; Est GFR (Non-African American) 59.8; Magnesium 2.2 mg/dl (1.8-2.4); Potassium 4.2 mmol/L (3.5-5.1)
[2020-03-15] MEDS ORDERED: FUROSEMIDE 20 MG in SYRINGE 0 ML IV ONE (04:49)
--- NOTE | 2020-03-15 05:16 | Communication Note ---
Date of Service: March 15, 2020 Called to evaluate patient early this morning, due to tachycardia and worsening hypoxia on 4L. When I presented patient was A fib in RVR rates in the 130's and 140's. pressures hypertensive and oxygenating in the mid 90's on 4L. Gave additional 5 mg Lopressor IV which dropped rate into 100's 110's. Crackles at bases on lung exam Obtained stat chest XR gave 20 mg IV lasix and transferred to PCU.
--- NOTE | 2020-03-15 07:30 | XRay Report ---
XR chest 1V portable CLINICAL HISTORY: Tachycardia dyspnea COMPARISON STUDY: 03/14/2020 FINDINGS: Moderate cardiomegaly. This is unchanged. Unchanged prominence of pulmonary vasculature. Tr hank pleural fluid lung bases. IMPRESSION: Stable cardiomegaly. Slight increase in prominence of pulmonary vasculature suggesting a component of early congestive failure ACT 112: Negative or not required by law. The above report was generated using voice recognition software. It may contain grammatical, syntax or spelling errors. Electronically signed by: Zackery Love M.D. 03/15/2020 7:29 AM
[2020-03-15] MEDS: HEPARIN SOD 5,000 UNIT/0.5 ML VIAL SQ SCH ×2 (09:36→19:26)
--- NOTE | 2020-03-15 10:06 | Neurology Consultation ---
Date of Consultation March 15, 2020 Assessment & Plan (1) Acute ischemic cerebrovascular accident (CVA) involving left middle cerebral artery territory: (2) Expressive aphasia: (3) Hemiparesis: (4) Left leg pain: (5) Atrial fibrillation with rapid ventricular response: (6) Hypertension: This patient has an acute stroke of a rather large size in the posterior 2/3 of the left middle cerebral artery (of a patchy nature). This has resulted in a severe expressive aphasia (and possible mild receptive aphasia), right johnny paresis (arm greater than face and leg), and possible right homonymous hemianopsia (she is severely vision impaired at baseline). She is not moving her left leg because of pain at the hip and knee. She has a known left hip fracture from fall in October of 2019 not surgically repaired due to multiple medical problems. Her risk factors for stroke include atrial fibrillation and this was likely an embolic event. She has no significant vascular anomaly seen on CT angiography of the head or neck otherwise. She does have a history of hypertension and mild hyperglycemia. Patient has evidence of old cerebellar lacune is bilaterally and old small vessel ischemic disease. Recommendations: 1. Consider long-term anticoagulant to prevent embolic stroke. Because of her multiple cardiac issues I will defer to Cardiology to make this choice. Unfortunately, the patient has adamantly refused anticoagulation in the past. 2. If we do not initiate anticoagulation consideration should be given to switch aspirin to clopidogrel 75 milligrams daily. She does have evidence of old small vessel ischemic disease as well. 3. Physical, occupational, and speech therapy consult. 4. Consider TSH, B12, and folate. She has an elevated MCV. 5. Control hypertension as you are doing, aiming for a mean arterial pressure of approximately 100. 6. Fasting lipid profile and hemoglobin A1c, if not already ordered. Overall, I spent a total of 80 minutes with this case including review of records, review of MRI films, evaluation of the patient at bedside, and discussi on of the case with the patient at bedside, RN at bedside, and Dr. Briceno including differential diagnosis and treatment options. History of Present Illness Reason for Consultation: Patient is a 70-year-old, who I was asked to see the request of Dr. Briceno, for neurologic consultation regarding stroke. Requesting Physician: Dr. Briceno Attending Physician: Gael Briceno MD History of Present Illness This patient has a longstanding history of atrial fibrillation and congestive heart failure followed by Cardiology. Apparently, she has been refusing anticoagulant. She is currently living at [facility] and is on an 81 milligram aspirin tablet daily. She also has a history of hypertension, hypotension, and dyslipidemia. She is chronically vision impaired. On November 07, 2019, she fell fracturing her left hip. It was not repaired surgically due to her multiple medical problems including bilateral leg wounds. History suggests that on March 14 at 0200 she was apparently her usual self. She had blood drawn at 0500 and no one suspected anything although she did not talk. At 0630 she was nonverbal and not responding correctly. Her right arm was flaccid and she had a right facial droop. She arrived at the emergency room March 14 at 0836 with a temperature 36.8, respiratory rate 18, pulse of 140, blood pressure 139/107, and O2 saturation 85 percent. This quickly was increased to 96 percent on 2 liters O2. She was found to be in atrial fibrillation with rapid ventricular rate. On examination she was somnolent but arousable. She was not formulating any words in the right upper extremity was flaccid. There was a concern that her left lower extremity was weak as well. CBC showed a white count of 10.9 and Chem profile was remarkable for glucose of 138 and an alkaline phos of 168. CT angiography of the head and neck were unremarkable without any significant vascular stenoses or anomalies. CT scan of the head showed a probable left middle cerebral artery distribution CVA. There was no hemorrhage. MRI of the brain showed a moderate to somewhat large left middle cerebral artery territory acute infarct. These infarct areas included the posterior frontal lobe, parts of the parietal and temporal lobes, and subinsular cortex, all on the left. There were mild old microvascular ischemic changes periventricular early and an old small infarcts in the cerebellar hemispheres. I reviewed these films. This morning, white count was 10.6 and glucose was 120. Echocardiogram revealed hypokinetic left ventricle with an injection fraction of 30-35 percent. No shunt was noted. Patient herself has no complaint of pain or headache, chest pain, abdominal issues or dizziness. Her left leg does hurt at the hip and knee. She knows her right arm is weak. Allergies Allergy/AdvReac Type Severity Reaction Status Date / Time Penicillins Allergy Unknown Unknown Verified 03/14/20 08:43 Home Medications Home Medications Medication Instructions Recorded Confirmed Type furosemide [Lasix] 60 mg PO DAILY@0800 11/07/19 03/14/20 History acetaminophen 650 mg PO Q6H PRN 12/15/19 03/14/20 History ondansetron HCl [Zofran] 4 mg PO Q6H PRN 12/15/19 03/14/20 History digoxin 0.125 mg PO DAILY@1600 #1 tab 12/24/19 03/14/20 Rx aspirin 81 mg PO DAILY@0903/14/20 03/14/20 History magnesium hydroxide [Milk of 30 ml PO DAILY PRN 03/14/20 03/14/20 History Magnesia] metoprolol succinate 37.5 mg PO DAILY@0803/14/20 03/14/20 History multivit,stress formula-zinc 1 tab PO DAILY@79903/14/20 03/14/20 History [Stress Formula with Zinc] potassium chloride 40 meq PO DAILY@0803/14/20 03/14/20 History tramadol 50 mg PO Q6H PRN 03/14/20 03/14/20 History Patient History Medical History Acute combined systolic and diastolic congestive heart failure (Acute) Acute renal insufficiency 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 Goals of care, counseling/discussion HTN (hypertension) (Chronic) Hyperlipemia (Chronic) Hypotension With her hypotension, her Hb is up from prior, and creatinine has bumped significantly in one day so appears to be intravascularly dry - unsure how sh e will tolerate fluid challenge but may make her tolerate anesthesia better Tachycardia Visual impairment (Chronic) Surgical History No pertinent past surgical history Family History Other No pertinent family history Social History Preferred Language: Tunisian Communication Ability: Unable Bread Distributor Required: No Beliefs That Will Affect Care: None marital status: / Current Living Situation: [facility] Current Living Situation Comment: from [facility] Feels Safe at Home: Yes Safety Concerns: Feels Safe At This Time Smoking Status: Former smoker Tobacco Type: cigarettes ; Cigarettes Per Day: 10 ; Do You Dip or Chew Tobacco: No ; Second Hand Exposure: No ; Tobacco Cessation Education Requested by Patient: No Hx Alcohol Use: No Hx Substance Use: No Review of Systems Review of Systems: Other (Review of systems was extremely limited because of her inability to formulate words. She could nod yes or no to questions for the most part.) Constitutional: + fatigue and + weakness; no fever Eyes: no diplopia, no eye pain and no worsening vision Ear, Nose, Mouth, Throat: no ear pain, no tinnitus, no dizziness and no dysphagia Respiratory: no cough and no dyspnea Cardiovascular: no chest pain, no palpitations and no lightheadedness Gastrointestinal: no abdominal pain, no nausea and no vomiting Genitourinary: no dysuria, no urinary frequency and no urinary incontinence Musculoskeletal: + joint pain; no back pain, no neck pain, no radicular pain and no myalgia Integumentary: no rash and no lesions Neurologic: + localized weakness and + abnormal speech; no gait abnormality, no generalized weakness, no tingling, no numbness, no tremor(s), no abnormal movements, no headache(s), no confusion and no memory loss Psychiatric: no depression, no irritability, no anxiety, no difficulty concentrating, no confusion and no hallucinations Endocrine: no fatigue and no flushing Hematologic / Lymphatic: no easy bleeding and no easy bruising Allergy / Immunological: no urticaria and no problem reported Exam (Neuro) Physical Exam: The patient is right-handed. The patient is awake, alert, and attentive. Speech is remarkable for a severe expressive aphasia. She can makes sounds and attends to get words out but none come out. I cannot exclude a mild receptive component as she is occasionally able to follow what I am same commands and other times seems a little confused.. She identifies her name in a series of names given to her. Attention and concentration are normal. Mood and affect are normal and appropriate. General appearance and grooming are normal. Because she cannot speak I am unable to do a complete memory exam. The discs are sharp with positive venous pulsations bilaterally. There are no exudates, hemorrhages, or blood vessel changes seen. Pupils are 3 mm bilaterally and reactive to light. Extraocular eye muscles are intact without nystagmus. I do not believe the patient can see to the right of midline in both eyes. It is questionable whether she can see to the left but certainly makes eye contact to the left (and not the right). There are no deficits to sensation in the face in all 3 distributions of the fifth cranial nerve bilaterally. Corneal reflexes are positive bilaterally. There seems to be a mild weakness of the corner of the mouth on the right compared to the left. Hearing seems normal to whisper and finger rub bilaterally. Palate moves well without asymmetry. There is normal sternocleidomastoid and trapezius (shoulder shrug) strength bilaterally. Tongue is midline with good strength bilaterally. Neck has a full range of motion without discomfort. There are no cervical bruits bilaterally. There are no cranial or ocular bruits. Heart is without murmur. There is a regular rhythm and rate. Cervical, thoracic, and lumbar spine are nontender to palpation. Gait is is not tested because of her left leg pain and right leg weakness but stance sitting up in bed is reasonable. With outstretched arms there is no drift on the left. She can hold her right upper extremity off the bed a little bit using proximal strength but distally she is quite weak. There are no resting, postural, or action tremors. There is no obvious ataxia with finger to nose testing on the left. There is reasonable facility in the left hand and reduced facility in the right hand. Motor strength is 5/5 diffusely in the left upper extremity including deltoids, biceps, triceps, brachioradialis, wrist flexors and extensors, liquefaction supervisor, and intrinsic hand muscles. The right upper extremity is 4-/5 proximally in the deltoid, biceps, and triceps and 1/5 distally including liquefaction supervisor and intrinsic hand muscles. Motor strength is 4/5 in the right lower extremity including hip flexors, quadriceps, hamstrings, gastrocnemius, tibialis anterior, tibialis posterior, and Peroneii muscles. The left lower extremity strength is difficult to assess because of pain at the hip and knee and unwillingness to move at these joints. She has 4/5 strength distally in the foot and toes. The right upper extremity has decreased tone. There is no atrophy noted in the muscles. Muscle bulk is normal, there is no tenderness to palpation, no myotonia to percussion, and no fasciculations seen. Sensory examination is intact to touch and pin throughout all 4 limbs diffusely. Reflexes are 1/4 in the biceps, triceps, brachioradialis, quadriceps, and Achilles tendons bilaterally. There is no clonus bilaterally. Toes are downgoing with plantar stimulation bilaterally. Peripheral pulses are present and of normal quality distally in all 4 limbs. There is no peripheral edema noted in the limbs. Results & Data ([facility]) Vital Signs (Past 12 Hours) Vital Signs Temp Pulse Pulse Resp BP BP Pulse Ox 03/15/20 07:26 73 03/15/20 07:04 36.8 C 70 20 129/87 98 03/15/20 05:11 105 H 141/87 H 03/15/20 04:50 130 H 169/118 H 03/15/20 04:35 37.1 C 133 H 18 160/97 H 95 03/15/20 04:33 168 H 173/123 H 03/15/20 03:02 37 C 116 H 19 166/108 H 97 03/15/20 02:22 140 H 156/98 H 03/14/20 22:56 36.4 C L 89 20 153/97 H 100 Diagnostic Findings Brain MRI WITHOUT CONTRAST HISTORY: Stroke TECHNIQUE: Multiplanar multisequence MRI of the brain was performed without the use of contrast. Standard axial T1 sequences were performed. COMPARISON STUDY: Head CT 03/14/2020. FINDINGS: Patchy area of restricted diffusion involving the left posterior frontal lobe, left temporal lobe, as well as the left subinsular cortex consistent with a left MCA territory infarct. This measures a maximal size of 6.4 cm. No definite mass, hematoma, or midline shift. Cytotoxic edema at the left infarct. Old small infarcts within the cerebellar hemispheres. Mild microvascular ischemic changes noted within the periventricular location. The orbits unremarkable. Paranasal sinuses and mastoid air cells are clear. The major vascular flow voids at the skull base are well-maintained. Mild atrophic changes identified within the brain. IMPRESSION: Confirmation of a moderate sized acute left MCA territory infarct as described above. ACT 112: Negative or not required by law. Electronically signed by: Iam Moran M.D. 03/14/2020 3:00 PM PG Care Time/CCT Total # of Minutes Spent Total Time Spent with Patient: Total time spent is greater than 50% in coordination of care (as documented) at patient's floor/unit and/or counseling patient: Coding Level of Care Code 74013 Initial Inpt Care Lvl 3 Diagnoses Acute ischemic cerebrovascular accident (CVA) involving left middle cerebral artery territory I63.512 Expressive aphasia R47.01 Hemiparesis G81.90 Left leg pain M79.605 Atrial fibrillation with rapid ventricular response I48.91 Hypertension I10 Time Spent (min) 80
[2020-03-15] MEDS: MoRPHine SULFATE 2 MG/ML CARP IV PRN ×2 (11:12→17:08)
--- NOTE | 2020-03-15 14:26 | Electrocardiogram Report ---
Test Reason : Blood Pressure : / mmHG Vent. Rate : 132 BPM Atrial Rate : 111 BPM P-R Int : 000 ms QRS Dur : 088 ms QT Int : 258 ms P-R-T Axes : 000 -30 114 degrees QTc Int : 382 ms Poor data quality, interpretation may be adversely affected Atrial fibrillation with rapid ventricular response with premature ventricular or aberrantly conducte d complexes Left axis deviation T wave abnormality, consider lateral ischemia Abnormal ECG When compared with ECG of 14-MAR-2020 08:58, No significant change was found Confirmed by Kota Thacker ([id number]) on 03/15/2020 2:26:20 PM Referred By: Bebo Corea Confirmed By:Kota Thacker
--- NOTE | 2020-03-15 14:53 | Hospitalist Progress Note ---
Date of Service March 15, 2020 Assessment & Plan (1) Acute ischemic cerebrovascular accident (CVA) involving left middle cerebral artery territory: Likely embolic stroke from her atrial fibrillation. - MRI brain on 03/14 showed moderate left MCA stroke - Neurology consulted - Palliative care consulted - SCHO[employer] PSYCHOLOGIST recs followed -> Seems to be able to swallow, but intermittently refusing to attempt to eat foods. - PT/OT - Will try to work with her as able. - ASA 81 PO daily - Statin (2) Atrial fibrillation with rapid ventricular response: Chronic atrial fibrillation. Known afib which has been hard to control in the past as she is only somewhat willing to take certain medications. - Continue oral meds as approved by SCHOOL PSYCHOLOGIST - Metoprolol IV PRN for HR > 110 - Hold anticoagulation for now as patient has categorically refused over months and starting anticoagulation would be in contra-indication of her wishes. (3) Combined systolic and diastolic heart failure: Prior episode of CHF. Echo in 11/2019 showed EF 20-25%. Dry weight was ~84 kg previously; she is now down to 71 kg on admission. - Monitor I&Os, weights - Hold Lasix for now as her weight is down considerably from prior - I do not think she is in acute exacerbation. She is breathing comfortably. Weight stable. No edema. (4) Hypertension: Normally on Lasix and beta-alis. BP presently 160/100. - Holding oral meds - Will give beta-alis IV as needed (5) DVT prophylaxis: Heparin 5000 units Q12h Admission and Anticipated Discharge Date Admission Date: March 14, 2020 Subjective More interactive today. Attempts to follow some responses. Mouths some words, but no real intelligible speech. Review of Systems Review of Systems: Unobtainable due to cognitive status Physical Exam Constitutional: WD/WN, vitals as above + acute distress, + frail appearing and cooperative Eyes: EOM intact bilaterally; no conjunctival abnormality ENMT: external ear and nose normal, oropharynx normal Neck: trachea midline, no thyromegaly normal visual inspection Respiratory: normal respiratory effort, lungs clear to auscultation no respiratory distress Cardiovascular: Rate/Rhythm: + tachycardic and + irregularly irregular Heart Sounds: normal S1 and normal S2 Vessels: no JVD Extremities: no edema Gastrointestinal (Abdomen): Inspection/Auscultation: abdomen normal to inspection; abdomen not distended Musculoskeletal: no cyanosis or clubbing, extremities motor strength 5/5 Skin: no rashes, warm and dry Neurologic: awake; + does not move all extremities Psychiatric: Orientation: alert and cooperative; + not oriented to person Results & Data Results & Data ([facility]) Vital Signs (Past 12 Hours) Vital Signs Temp Pulse Pulse Pulse Resp BP BP 03/15/20 13:11 131 H 157/104 H 03/15/20 12:08 36.7 C 103 H 18 120/80 03/15/20 09:34 176 H 145/89 H 03/15/20 07:26 73 03/15/20 07:04 36.8 C 70 20 129/87 03/15/20 05:11 105 H 141/87 H 03/15/20 04:50 130 H 169/118 H 03/15/20 04:35 37.1 C 133 H 18 160/97 H 03/15/20 04:33 168 H 173/123 H 03/15/20 03:02 37 C 116 H 19 166/108 H Pulse Ox 03/15/20 13:11 03/15/20 12:08 98 03/15/20 09:34 03/15/20 07:26 03/15/20 07:04 98 03/15/20 05:11 03/15/20 04:50 03/15/20 04:35 95 03/15/20 04:33 03/15/20 03:02 97 PG Care Time/CCT Total # of Minutes Spent Total Time Spent with Patient: Total time spent is greater than 50% in coordination of care (as documented) at patient's floor/unit and/or counseling patient: Coding Level of Care Code 11125 Subseq Hosp Care Lvl 3 Diagnoses Acute ischemic cerebrovascular accident (CVA) involving left middle cerebral artery territory I63.512 Atrial fibrillation with rapid ventricular response I48.91 Combined systolic and diastolic heart failure I50.40 Hypertension I10 DVT prophylaxis Z29.9
[2020-03-15] MEDS: DIGOXIN 0.125 MG/2.5 ML UDP PO SCH ×2 (16:08→17:06)
[2020-03-16 07:02] LABS: Hematocrit (blood only) 40.8 % (37-47); Hemoglobin 12.6 g/dL (12.0-16.0); Mean Corpuscular Hgb Conc 30.9 g/dL (32-36); Mean Corpuscular Volume 100.5 fL (80-100); Platelet Count 215 K/uL (130-400); RDW Coefficient of Variation 13.9 % (11.5-14.5); RDW Standard Deviation 50.7 fL (36.4-46.3); Red Blood Count 4.06 M/uL (4.2-5.4); White Blood Count 8.17 K/uL (4.8-10.8)
[2020-03-16 07:30] LABS: BUN Creatinine Ratio 24.9 (10-20); Calcium 9.2 mg/dl (8.5-10.1); Creatinine Clr Calc Pharmacy 53.8 ml/min; Est GFR (African American) 72.1; Est GFR (Non-African American) 62.2; Magnesium 2.1 mg/dl (1.8-2.4); Potassium 3.6 mmol/L (3.5-5.1)
[2020-03-16] MEDS: METOPROLOL SUCC 25MG EXT REL TAB PO SCH (08:29)
[2020-03-16] MEDS: HEPARIN SOD 5,000 UNIT/0.5 ML VIAL SQ SCH ×2 (08:30→20:20)
[2020-03-16] MEDS: ASPIRIN 81 MG ECTAB PO SCH (08:30)
[2020-03-16] MEDS: MoRPHine SULFATE 2 MG/ML CARP IV PRN ×2 (08:45→20:20)
--- NOTE | 2020-03-16 10:34 | Neurology Progress Note ---
Date of Service March 16, 2020 Assessment & Plan (1) Acute ischemic cerebrovascular accident (CVA) involving left middle cerebral artery territory: (2) Expressive aphasia: (3) Hemiparesis: (4) Left leg pain: (5) Atrial fibrillation with rapid ventricular response: (6) Hypertension: This patient had an acute stroke, of a rather large size, in the posterior 2/3 of the left middle cerebral artery (of a patchy nature). This has resulted in a severe expressive aphasia (and possible mild receptive aphasia), right johnny paresis (arm greater than face and leg), and possible right homonymous hemianopsia (she is severely vision impaired at baseline). Today she is moving her right side better and is starting to formulate words. She does not seem to have a receptive aphasia today. She is not moving her left leg because of pain at the hip and knee. She has a known left hip fracture from fall in October of 2019 not surgically repaired due to multiple medical problems. Her risk factors for stroke include atrial fibrillation and this was likely an embolic event. She has no significant vascular anomaly seen on CT angiography of the head or neck otherwise. She does have a history of hypertension and mild hyperglycemia. Patient has evidence of old cerebellar hemispheric lacunes bilaterally and old small vessel ischemic disease. Recommendations: 1. Consider long-term anticoagulant to prevent embolic stroke. Because of her multiple cardiac issues I will defer to Cardiology to make this choice. Unfortunately, the patient has adamantly refused anticoagulation in the past (and yesterday). 2. If we do not initiate anticoagulation, consideration should be given to switch aspirin to clopidogrel 75 milligrams daily. She does have evidence of old small vessel ischemic disease as well. 3. Physical, occupational, and speech therapy consult. 4. Consider TSH, B12, and folate. She has an elevated MCV. 5. Control hypertension as you are doing, aiming for a mean arterial pressure of approximately 100. 6. Fasting lipid profile and hemoglobin A1c, if not already ordered. Overall, I spent a total of 25 minutes with this case including review of records, review of MRI films, evaluation of the patient at bedside, and discussion of the case with the patient at bedside, RN at bedside, and Dr. Briceno including differential diagnosis and treatment options. Admission and Anticipated Discharge Date Admission Date: March 14, 2020 Subjective Denies any pain or headache. She is not dizzy. She is more alert and is moving her limbs better. Blood pressure was 147/87. CBC and Chem profile were stable. Chest x-ray was stable. She has been chronically in atrial fibrillation with rapid ventricular rate up to 200s Results & Data ([facility]) Vital Signs (Past 12 Hours) Vital Signs Temp Pulse Pulse Resp BP Pulse Ox 03/16/20 08:30 81 03/16/20 07:14 36.8 C 74 20 145/87 H 99 03/16/20 04:19 37 C 79 16 129/92 93 03/16/20 00:00 36.6 C 74 17 144/83 H 100 03/15/20 23:43 79 Exam (Neuro) Physical Exam: She is trying to formulate words and I understood I know. She could not state her name. She follows one-step commands very well. Her vision is poor particularly to the right and she attempted to look at my name badge but I am not sure how good her vision is Extraocular eye muscles are intact without nystagmus and there is no obvious facial droop. She can lift up her right upper extremity and right lower extremity much better than yesterday. She is still weak in the hand however. The left leg is not moving because of pain at the hip. The left arm has good strength. PG Care Time/CCT Total # of Minutes Spent Total Time Spent with Patient: Total time spent is greater than 50% in coordination of care (as documented) at patient's floor/unit and/or counseling patient: Coding Level of Care Code 72684 Subseq Hosp Care Lvl 2 Diagnoses Acute ischemic cerebrovascular accident (CVA) involving left middle cerebral artery territory I63.512 Expressive aphasia R47.01 Hemiparesis G81.90 Left leg pain M79.605 Atrial fibrillation with rapid ventricular response I48.91 Hypertension I10 Time Spent (min) 25
--- NOTE | 2020-03-16 11:06 | Palliative Care Consultation ---
Date of Consultation March 16, 2020 Assessment & Plan (1) Goals of care, counseling/discussion: -70 year old female patient with PMH htn, paroxysmal afib, severe LV dysfunction with EF 20-25% on most recent echo during this admission, RV dysfunction, visual impairment, atrial ectopy, hyperlipidemia, inoperable left hip fracture several months ago, and venous stasis ulcers, presented to the hospital from the [facility] with nonverbal episode, minimally responsive, had right-sided flaccid paralysis, and a right-sided facial droop. Patient out of window for tPA. MRI shows large left MCA stroke. Neurology is consulted who recommends long-term anticoagulation, but would like cardiology's input on this due to her significant heart issues. Patient has adamantly refused AC in the past, and often refuses other medications as well. [employer] PRODUCTION MANAGER evaluated patient-- she is able to swallow but has been intermittently refusing to eat. Patient is left with significant right sided weakness and aphasia. Palliative care is consulted to discuss goals of care with patient and family. -Paient to be seen by palliative MD this afternoon. Spoke with attending physician who stated patient has made significant improvements in the last day. Today, patient was able to mouth some words, communicate appropriately through head nodding, took her medications by mouth. Patient continues to refuse blood thinner, but agreed to take ASA. -Patient is well-known to palliative service as we have been consulted on her many times. Previously, we have seen her for her other multiple, advanced comorbidities including heart failure and the inoperable hip fracture which has severely limited her functional status. -Patient has been living at the [facility] since her hospitalization with the hip fracture months ago. Prior to this, she was living in her home where her daughter and daughter's family were also living. Patient is a unique individual with very non-conventional approach to her health care. Patient does intermittently refuse medications, as she believes western medicine causes a lot of her problems. She did however always maintain that she wanted to be a full code and receive full treatment if necessary. -Patient now is not able to have a meantingful conversation about goals of care. Prognosis is quite poor. She has a son Genesis, who physician spoke with on admission. Joannedd stated patient should remain full code per her wishes. -On several previous admissions, patient told me that she would want her son Genesis to be main contact/decision maker, but she refused to do any POA paperwork and would not let me call him at the time. She has a son Nahun who she also trusts. she did not want her two local daughters and son to make decisions for her. She has a total of 8 children. -Spoke with son Genesis, as well as his who is a nurse. Discussed the improvements that are seen today, but the also that her prognosis still remains extremely poor due to her multiple comorbidities. We discussed quality of life and goals of care. The family does not want to see her suffer. -We discussed code status. They are both understanding of the fact that putting Liane through CPR or intubation would likely be detrimental and harmful without a good outcome. They are going to discuss as a family and attempt to discuss with the patient if she improves enough to do so. -For now, continue with current supportive care. We will continue to follow and engage with family regarding goals of care. Plan will be for patient to return to the [facility] upon discharge, regardless of goals. (2) Acute ischemic cerebrovascular accident (CVA) involving left middle cerebral artery territory: (3) Expressive aphasia: (4) Hemiparesis: Supervising Physician Co-Signing Physician Notes Chart reviewed, patient seen and examined. Collaborated with JONATHON Romero as well as attending physician Dr. Briceno Patient awake and alert, sitting up in bed, attempting to do resume visit with HER-2 sons. Patient with significant expressive aphasia, can make out a word here and there-patient asking for a pen and a pad of paper. PE: Patient awake and alert, able to follow commands, appears to understand questions when asked HEENT: EOMI, right facial droop Respirations: Unlabored, clear breath sounds CV: Tachycardic, trace to 1+ lower extremity edema Abdomen: Soft, nontender Extremities: Left lower extremity externally rotated-inoperable hip fracture Neuro: Expressive aphasia, right-sided weakness, improving-strength 3/5 Agree with above note, assessment and plan as per JONATHON Romero. Patient will remain a full code, will continue to follow and assist patient and family with medical decision making. History of Present Illness Attending Physician: Gael Briceno MD History of Present Illness This 70 year old female patient with PMH htn, paroxysmal afib, severe LV dysfunction with EF 20-25% on most recent echo during this admission, RV dysfunction, visual impairment, atrial ectopy, hyperlipidemia, inoperable left hip fracture several months ago, and venous stasis ulcers, presented to the hospital from the [facility] with nonverbal episode, minimally responsive, had right-sided flaccid paralysis, and a right-sided facial droop. Patient out of window for tPA. MRI shows large left MCA stroke. Neurology is consulted who recommends long-term anticoagulation, but would like cardiology's input on this due to her significant heart issues. Patient has adamantly refused AC in the past, and often refuses other medications as well. [employer] PRODUCTION MANAGER evaluated patient-- she is able to swallow but has been intermittently refusing to eat. Patient is left with significant right sided weakness and aphasia. Palliative care is consulted to discuss goals of care with patient and family. Thank you kindly for this consult. Palliative care team will follow as needed. Allergies Allergy/AdvReac Type Severity Reaction Status Date / Time Penicillins Allergy Unknown Unknown Verified 03/14/20 08:43 Home Medications Home Medications Medication Instructions Recorded Confirmed Type furosemide [Lasix] 60 mg PO DAILY@0800 11/07/19 03/14/20 History acetaminophen 650 mg PO Q6H PRN 12/15/19 03/14/20 History ondansetron HCl [Zofran] 4 mg PO Q6H PRN 12/15/19 03/14/20 History digoxin 0.125 mg PO DAILY@1600 #1 tab 12/24/19 03/14/20 Rx aspirin 81 mg PO DAILY@0903/14/20 03/14/20 History magnesium hydroxide [Milk of 30 ml PO DAILY PRN 03/14/20 03/14/20 History Magnesia] metoprolol succinate 37.5 mg PO DAILY@0803/14/20 03/14/20 History multivit,stress formula-zinc 1 tab PO DAILY@0800 03/14/20 03/14/20 History [Stress Formula with Zinc] potassium chloride 40 meq PO DAILY@0803/14/20 03/14/20 History tramadol 50 mg PO Q6H PRN 03/14/20 03/14/20 History Patient History Medical History Acute combined systolic and diastolic congestive heart failure (Acute) Acute renal insufficiency 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 Goals of care, counseling/discussion HTN (hypertension) (Chronic) Hyperlipemia (Chronic) Hypotension With her hypotension, her Hb is up from prior, and creatinine has bumped significantly in one day so appears to be intravascularly dry - unsure how she will tolerate fluid challenge but may make her tolerate anesthesia better Tachycardia Visual impairment (Chronic) Surgical History No pertinent past surgical history Family History Other No pertinent family history Social History Preferred Language: Persian Communication Ability: Unable Grip Assembler Required: No Beliefs That Will Affect Care: None marital status: / Current Living Situation: Assisted Current Living Situation Comment: from [facility] Feels Safe at Home: Yes Safety Concerns: Feels Safe At This Time Smoking Status: Former smoker Tobacco Type: cigarettes ; Cigarettes Per Day: 10 ; Do You Dip or Chew Tobacco: No ; Second Hand Exposure: No ; Tobacco Cessation Education Requested by Patient: No Hx Alcohol Use: No Hx Substance Use: No Results & Data Vital Signs (Past 12 Hours) Vital Signs Temp Pulse Pulse Resp BP Pulse Ox 03/16/20 08:30 81 03/16/20 07:14 36.8 C 74 20 145/87 H 99 03/16/20 04:19 37 C 79 16 129/92 93 03/16/20 00:00 36.6 C 74 17 144/83 H 100 03/15/20 23:43 79 Coding Level of Care Code 75546 Inpt Consult Level 3 Diagnoses Goals of care, counseling/discussion Z71.89 Acute ischemic cerebrovascular accident (CVA) involving left middle cerebral artery territory I63.512 Expressive aphasia R47.01 Hemiparesis G81.90 Time Spent (min) 75 Time Spent Midlevel A total of 75 minutes spent by this TEACHER OF THE EMOTIONALLY DISTURBED in reviewing chart, speaking with physicians and IDT, and speaking at length with family regarding condition, goals of care, and code status.
[2020-03-16] MEDS: ACETAMINOPHEN 325 MG TAB PO PRN (12:19)
[2020-03-16] MEDS: METOPROLOL TARTRATE 1 MG/ML VIAL IV PRN (12:32)
--- NOTE | 2020-03-16 14:04 | Hospitalist Progress Note ---
Date of Service March 16, 2020 Assessment & Plan (1) Acute ischemic cerebrovascular accident (CVA) involving left middle cerebral artery territory: Likely embolic stroke from her atrial fibrillation. - MRI brain on 03/14 showed moderate left MCA stroke - Neurology consulted - Palliative care consulted - [employer] recs followed -> Able to swallow - PT/OT - Will try to work with her as able. - Switch to Plavix from ASA per neurology recs (if patient will accept the change) - Will get A1c, lipids (2) Atrial fibrillation with rapid ventricular response: Chronic atrial fibrillation. Known afib which has been hard to control in the past as she is only somewhat willing to take certain medications. - Continue oral meds as approved by [employer]: beta-alis and digoxin - Metoprolol IV PRN for HR > 110 - Hold anticoagulation. Patient again refused for me. I asked about warfarin/Coumadin, Eliquis/apixaban, and Xarelto/rivaroxaban, and she vigorously shook her head at all of these. (3) Combined systolic and diastolic heart failure: Prior episode of CHF. Echo in 11/2019 showed EF 20-25%. Dry weight was ~84 kg previously; she is now down to 71 kg on admission. - Monitor I&Os, weights - Hold Lasix for now as her weight is down considerably from prior - I do not think she is in acute exacerbation. She is breathing comfortably. Weight stable. No edema. (4) Hypertension: Normally on Lasix and beta-alis. BP presently 130/80. - Resumed beta-alis - Will give beta-alis IV as needed (5) DVT prophylaxis: Heparin 5000 units Q12h Admission and Anticipated Discharge Date Admission Date: March 14, 2020 Subjective Still having pain in the left leg. Otherwise is actually able to communicate somewhat with nods/shakes of the head. Understanding seems intact. Reports no fevers/chills, chest pain, shortness of breath, abdominal pain, nausea, or vomiting. Physical Exam Constitutional: WD/WN, vitals as above + frail appearing and cooperative; no acute distress Eyes: EOM intact bilaterally; no conjunctival abnormality ENMT: external ear and nose normal, oropharynx normal Neck: trachea midline, no thyromegaly normal visual inspection Respiratory: normal respiratory effort, lungs clear to auscultation no respiratory distress Cardiovascular: Rate/Rhythm: + tachycardic and + irregularly irregular Heart Sounds: normal S1 and normal S2 Vessels: no JVD Extremities: no edema Gastrointestinal (Abdomen): Inspection/Auscultation: abdomen normal to inspection; abdomen not distended Musculoskeletal: no cyanosis or clubbing, extremities motor strength 5/5 Skin: no rashes, warm and dry Neurologic: moves all extremities and awake Psychiatric: Orientation: alert and cooperative; + not oriented to person Results & Data Results & Data ([facility]) Vital Signs (Past 12 Hours) Vital Signs Temp Pulse Pulse Resp BP BP Pulse Ox 03/16/20 12:32 154 H 132/83 03/16/20 12:03 36.2 C L 116 H 16 151/92 H 95 03/16/20 08:30 81 03/16/20 07:14 36.8 C 74 20 145/87 H 99 03/16/20 04:19 37 C 79 16 129/92 93 PG Care Time/CCT Total # of Minutes Spent Total Time Spent with Patient: Total time spent is greater than 50% in coordination of care (as documented) at patient's floor/unit and/or counseling patient: Coding Level of Care Code 70039 Subseq Hosp Care Lvl 2 Diagnoses Acute ischemic cerebrovascular accident (CVA) involving left middle cerebral artery territory I63.512 Atrial fibrillation with rapid ventricular response I48.91 Combined systolic and diastolic heart failure I50.40 Hypertension I10 DVT prophylaxis Z29.9
[2020-03-16] MEDS: DIGOXIN 0.125 MG/2.5 ML UDP PO SCH (17:19)
[2020-03-17 06:34] LABS: Hematocrit (blood only) 37.1 % (37-47); Hemoglobin 12.1 g/dL (12.0-16.0); Mean Corpuscular Hemoglobin 33.1 pg (25-34); Mean Corpuscular Hgb Conc 32.6 g/dL (32-36); Mean Corpuscular Volume 101.4 fL (80-100); Mean Platelet Volume 9.1 fL (7.4-10.4); Platelet Count 224 K/uL (130-400); RDW Coefficient of Variation 13.8 % (11.5-14.5); RDW Standard Deviation 50.6 fL (36.4-46.3); Red Blood Count 3.66 M/uL (4.2-5.4); White Blood Count 6.59 K/uL (4.8-10.8)
[2020-03-17 07:06] LABS: BUN Creatinine Ratio 29.4 (10-20); Calcium 9.3 mg/dl (8.5-10.1); Creatinine Clr Calc Pharmacy 60.3 ml/min; Est GFR (African American) 82.9; Est GFR (Non-African American) 71.5; Magnesium 2.2 mg/dl (1.8-2.4); Potassium 3.3 mmol/L (3.5-5.1)
[2020-03-17 07:16] LABS: Phosphorus 3.3 mg/dl (2.5-4.9); Thyroid Stimulating Hormone 1.48 uIu/ml (0.300-4.500)
[2020-03-17 07:32] LABS: Estimated Average Glucose 100 mg/dl; Hemoglobin A1C 5.1 % (4.5-5.6)
[2020-03-17 07:47] LABS: Folate (Folic Acid) > 24.00 ng/ml (>5.38); Vitamin B12 1133 pg/ml (211-911)
[2020-03-17] MEDS: METOPROLOL SUCC 25MG EXT REL TAB PO SCH (09:03)
[2020-03-17] MEDS: ASPIRIN 81 MG ECTAB PO SCH (09:03)
[2020-03-17] MEDS: ACETAMINOPHEN 325 MG TAB PO PRN (09:03)
[2020-03-17] MEDS: HEPARIN SOD 5,000 UNIT/0.5 ML VIAL SQ SCH ×2 (09:03→20:18)
--- NOTE | 2020-03-17 09:24 | Neurology Progress Note ---
Date of Service March 17, 2020 Assessment & Plan (1) Acute ischemic cerebrovascular accident (CVA) involving left middle cerebral artery territory: (2) Expressive aphasia: (3) Hemiparesis: (4) Left leg pain: (5) Atrial fibrillation with rapid ventricular response: (6) Hypertension: This patient had an acute stroke, of a rather large size, in the posterior 2/3 of the left middle cerebral artery (of a patchy nature). This has resulted in a severe expressive aphasia (and possible mild receptive aphasia), right johnny paresis (arm greater than face and leg), and possible right homonymous hemianopsia (she is severely vision impaired at baseline). Today she is moving her right side better and is starting to formulate words some. She does not seem to have a receptive aphasia today. She is not moving her left leg because of pain at the hip and knee. She has a known left hip fracture from fall in October of 2019 not surgically repaired due to multiple medical problems. Her risk factors for stroke include atrial fibrillation and this was likely an embolic event. She has no significant vascular anomaly seen on CT angiography of the head or neck otherwise. She does have a history of hypertension and mild hyperglycemia. Patient has evidence of old cerebellar hemispheric lacunes bilaterally and old small vessel ischemic disease. Recommendations: 1. Consider long-term anticoagulant to prevent embolic stroke. Because of her multiple cardiac issues I will defer to Cardiology to make this choice. Unfortunately, the patient has adamantly refused anticoagulation in the past (and yesterday). 2. If we do not initiate anticoagulation, consideration should be given to sw itch aspirin to clopidogrel 75 milligrams daily. She does have evidence of old small vessel ischemic disease as well. 3. Physical, occupational, and speech therapy consult. 4. Control hypertension as you are doing, aiming for a mean arterial pressure of approximately 100. 5. I have no further neurologic testing or treatment recommendations to make at this time. Please contact me if I can be of further assistance on this case. Overall, I spent a total of 25 minutes with this case including review of records, evaluation of the patient at bedside, and discussion of the case with the patient at bedside, RN at bedside, and Dr. Briceno including differential diagnosis and treatment options. Admission and Anticipated Discharge Date Admission Date: March 14, 2020 Subjective Pain or headache. She struggles with same words and can say some short words but not converse. I asked her to say her name but she could not say that. In speaking with her nurse she apparently will have times where she can form sentences and say words better than at other times however her consciousness is not altered at any particular time. B12, TSH, hemoglobin A1c, triglycerides and total cholesterol were unremarkable. Results & Data ([facility]) Vital Signs (Past 12 Hours) Vital Signs Temp Pulse Pulse Resp BP Pulse Ox 03/17/20 07:32 36.4 C L 85 19 155/98 H 97 03/17/20 04:00 37.3 C 96 H 16 156/97 H 95 03/17/20 00:01 85 03/16/20 23:31 36.6 C 85 18 159/89 H 98 Exam (Neuro) Physical Exam: She is awake and alert. She she tries to make eye contact to the left but her vision is poor. She will form sounds and some words but not others. She will follow one-step commands well. She moved her right arm and leg much better today than she had before. PG Care Time/CCT Total # of Minutes Spent Total Time Spent with Patient: Total time spent is greater than 50% in coordination of care (as documented) at patient's floor/unit and/or counseling patient: Coding Level of Care Code 24469 Subseq Hosp Care Lvl 2 Diagnoses Acute ischemic cerebrovascular accident (CVA) involving left middle cerebral artery territory I63.512 Expressive aphasia R47.01 Hemiparesis G81.90 Left leg pain M79.605 Atrial fibrillation with rapid ventricular response I48.91 Hypertension I10 Time Spent (min) 25
--- NOTE | 2020-03-17 13:54 | Palliative Care Progress Note ---
Date of Service March 17, 2020 Assessment & Plan (1) Goals of care, counseling/discussion: -70 year old female patient with PMH htn, paroxysmal afib, severe LV dysfunction with EF 20-25% on most recent echo during this admission, RV dysfunction, visual impairment, atrial ectopy, hyperlipidemia, inoperable left hip fracture several months ago, and venous stasis ulcers, presented to the hospital from the [facility] with nonverbal episode, minimally responsive, had right-sided flaccid paralysis, and a right-sided facial droop. Patient out of window for tPA. MRI shows large left MCA stroke. Neurology is consulted who recommends long-term anticoagulation, but would like cardiology's input on this due to her significant heart issues. Patient has adamantly refused AC in the past, and often refuses other medications as well. MARKETING STRATEGIST evaluated patient-- she is able to swallow but has been intermittently refusing to eat. Patient is left with significant right sided weakness and aphasia. Palliative care is consulted to discuss goals of care with patient and family. -Patient is well-known to palliative service as we have been consulted on her many times. Previously, we have seen her for her other multiple, advanced comorbidities including heart failure and the inoperable hip fracture which has severely limited her functional status. -Patient has been living at the [facility] since her hospitalization with the hip fracture months ago. Prior to this, she was living in her home where her daughter and daughter's family were also living. Patient is a unique individual with very non-conventional approach to her health care. Patient does intermittently refuse medications, as she believes western medicine causes a lot of her problems. -Patient was able to communicate that she does wish to remain a full code, also she would be interested in pursuing rehab to improve her deficits -On several previous admissions, patient told me that she would want her son Genesis to be main contact/decision maker, but she refused to do any POA paperwork and would not let me call him at the time. She has a son Nahun who she also trusts. she did not want her two local daughters and son to make decisions for her. She has a total of 8 children. (2) Acute ischemic cerebrovascular accident (CVA) involving left middle cerebral artery territory: (3) Expressive aphasia: (4) Hemiparesis: Subjective Patient awake and alert, no acute distress. Patient with significant expressive aphasia, will often say yes and shake her head meaning no. Patient did attempt to right-illegible Patient able to form a few words at times. Review of Systems Review of Systems: Positive for pain left lower extremity Negative for fever, chills, chest pain, shortness of breath, or abdominal pain Physical Exam Physical Exam: PE: Awake and alert, no acute distress HEENT: Does not track with her eyes as you move around the room, denies vision changes Respirations: Unlabored, clear breath sounds CV: Regular rate, positive lower extremity edema Abdomen: Soft, nontender Extremities: Left lower extremity externally rotated Neuro: Expressive aphasia, right-sided weakness Results & Data Vital Signs (Past 12 Hours) Vital Signs Temp Pulse Pulse Resp BP Pulse Ox 03/17/20 11:53 97.5 F L 99 H 19 163/102 H 97 03/17/20 08:00 93 H 03/17/20 07:32 97.5 F L 85 19 155/98 H 97 03/17/20 04:00 99.1 F 96 H 16 156/97 H 95 PG Care Time/CCT Total # of Minutes Spent Total Time Spent with Patient: Total time spent 35 minutes with greater than 50% of the time spent at bedside discussing patient's CODE STATUS as well as goals of care. Coding Level of Care Code 91964 Subseq Hosp Care Lvl 2 Diagnoses Goals of care, counseling/discussion Z71.89 Acute ischemic cerebrovascular accident (CVA) involving left middle cerebral artery territory I63.512 Expressive aphasia R47.01 Hemiparesis G81.90 Time Spent (min) 35
[2020-03-17] MEDS: TRAMADOL HCL 50 MG TABLET PO PRN ×2 (14:45→20:10)
--- NOTE | 2020-03-17 15:00 | Hospitalist Progress Note ---
Date of Service March 17, 2020 Assessment & Plan (1) Acute ischemic cerebrovascular accident (CVA) involving left middle cerebral artery territory: Likely embolic stroke from her atrial fibrillation. - MRI brain on 03/14 showed moderate left MCA stroke - Neurology consulted - Palliative care consulted - [facility] recs followed -> Able to swallow - PT/OT - Will try to work with her as able. - Switch to Plavix from ASA per neurology recs (if patient will accept the change) - A1c is 5.1%; lipids indicate LDL of 103. Will start statin if patient is willing. (2) Atrial fibrillation with rapid ventricular response: Chronic atrial fibrillation. Known afib which has been hard to control in the past as she is only somewhat willing to take certain medications. - Continue oral meds as approved by DOULA: beta-alis and digoxin - Metoprolol IV PRN for HR > 110 - Hold anticoagulation. Patient again refused for me. I asked about warfarin/Coumadin, Eliquis/apixaban, and Xarelto/rivaroxaban, and she vigorously shook her head at all of these. (3) Combined systolic and diastolic heart failure: Prior episode of CHF. Echo in 11/2019 showed EF 20-25%. Dry weight was ~84 kg previously; she is now down to 71 kg on admission. - Monitor I&Os, weights - Hold Lasix for now as her weight is down considerably from prior - I do not think she is in acute exacerbation. She is breathing comfortably. Weight stable. No edema. (4) Hypertension: Normally on Lasix and beta-alis. BP presently 130/80. - Resumed beta-alis - Will give beta-alis IV as needed (5) DVT prophylaxis: Heparin 5000 units Q12h Admission and Anticipated Discharge Date Admission Date: March 14, 2020 Subjective Doing better. Able to mouth some words, even say a sentence. Still clearly having some frustration in regards to trying to speak, but not able to. Reports no fevers/chills, chest pain, shortness of breath, abdominal pain, nausea, or vomiting. Physical Exam Constitutional: WD/WN, vitals as above + frail appearing and cooperative; no acute distress Eyes: EOM intact bilaterally; no conjunctival abnormality ENMT: external ear and nose normal, oropharynx normal Neck: trachea midline, no thyromegaly normal visual inspection Respiratory: normal respiratory effort, lungs clear to auscultation no respiratory distress Cardiovascular: Rate/Rhythm: + tachycardic and + irregularly irregular Heart Sounds: normal S1 and normal S2 Vessels: no JVD Extremities: no edema Gastrointestinal (Abdomen): Inspection/Auscultation: abdomen normal to inspection; abdomen not distended Musculoskeletal: no cyanosis or clubbing, extremities motor strength 5/5 Skin: no rashes, warm and dry Neurologic: moves all extremities and awake Psychiatric: Orientation: alert and cooperative; + not oriented to person Results & Data Results & Data ([facility]) Vital Signs (Past 12 Hours) Vital Signs Temp Pulse Pulse Resp BP Pulse Ox 03/17/20 11:53 36.4 C L 99 H 19 163/102 H 97 03/17/20 08:00 93 H 03/17/20 07:32 36.4 C L 85 19 155/98 H 97 03/17/20 04:00 37.3 C 96 H 16 156/97 H 95 PG Care Time/CCT Total # of Minutes Spent Total Time Spent with Patient: Total time spent is greater than 50% in coordination of care (as documented) at patient's floor/unit and/or counseling patient: Coding Level of Care Code 11308 Subseq Hosp Care Lvl 2 Diagnoses Acute ischemic cerebrovascular accident (CVA) involving left middle cerebral artery territory I63.512 Atrial fibrillation with rapid ventricular response I48.91 Combined systolic and diastolic heart failure I50.40 Hypertension I10 DVT prophylaxis Z29.9
[2020-03-17] MEDS: DIGOXIN 0.125 MG/2.5 ML UDP PO SCH (17:43)
[2020-03-17] MEDS: METOPROLOL TARTRATE 1 MG/ML VIAL IV PRN (19:59)
[2020-03-17] MEDS: EUCERIN CR 120 GM JAR EXT SCH (20:18)
[2020-03-17] MEDS: SODIUM CHLORIDE 0.65% NA SOLN 45 ML (OCEAN) SCH (22:01)
[2020-03-18] MEDS: TRAMADOL HCL 50 MG TABLET PO PRN ×3 (00:40→14:28)
[2020-03-18 07:33] VITALS: BP 168/99; TEMP 97.9; O2SAT 97
[2020-03-18 07:34] LABS: Hematocrit (blood only) 36.9 % (37-47); Hemoglobin 12.2 g/dL (12.0-16.0); Mean Corpuscular Hemoglobin 33.3 pg (25-34); Mean Corpuscular Hgb Conc 33.1 g/dL (32-36); Mean Corpuscular Volume 100.8 fL (80-100); Mean Platelet Volume 9.3 fL (7.4-10.4); Platelet Count 236 K/uL (130-400); RDW Coefficient of Variation 13.7 % (11.5-14.5); RDW Standard Deviation 49.3 fL (36.4-46.3); Red Blood Count 3.66 M/uL (4.2-5.4); White Blood Count 6.95 K/uL (4.8-10.8)
[2020-03-18] MEDS: HEPARIN SOD 5,000 UNIT/0.5 ML VIAL SQ SCH (07:44)
[2020-03-18] MEDS: METOPROLOL SUCC 25MG EXT REL TAB PO SCH (07:45)
[2020-03-18] MEDS: SODIUM CHLORIDE 0.65% NA SOLN 45 ML (OCEAN) SCH (07:46)
[2020-03-18] MEDS: EUCERIN CR 120 GM JAR EXT SCH (07:46)
[2020-03-18 08:06] LABS: BUN Creatinine Ratio 29.6 (10-20); Calcium 9.3 mg/dl (8.5-10.1); Creatinine Clr Calc Pharmacy 73.8 ml/min; Est GFR (African American) 101.8; Est GFR (Non-African American) 87.8; Magnesium 2.2 mg/dl (1.8-2.4); Potassium 3.7 mmol/L (3.5-5.1)
[2020-03-18] MEDS ORDERED: ATORVASTATIN 20 MG TAB PO SCH (09:00)
[2020-03-18] MEDS ORDERED: CLOPIDOGREL BISULFATE 75 MG TAB PO SCH (09:00)
[2020-03-18 14:36] VITALS: PULSE 94
--- NOTE | 2020-03-18 16:14 | Discharge Summary ---
Date of Service March 18, 2020 Admission HPI Per Admitting Provider 70yo F w/ hx atrial fibrillation who presents with likely stroke. All history is per report as the patient is non-verbal at present. Per report, the patient was assessed at approximately 2 AM without any concerns. She had her blood drawn at approximately 5 AM; however, there is no indication that she was fully assessed at that time. At approximately 6:30 AM, the staff noted that she was nonverbal, minimally responsive, had right-sided flaccid paralysis, and a right-sided facial droop. EMS was called and she was transported to the emergency department at that time. CTA of the head and neck showed no acute occlusion and due to the delay in arrival, she is not a TPA candidate. She has a known history of atrial fibrillation, but unfortunately is not on anticoagulation due to patient's preference. It is presumed that she has had an embolic stroke. At present, the patient can minimally follow simple commands (will move her left arm when asked to give a thumbs up). She does nod and shake her head to some questions, but cannot reliably answer any review of systems. Principal Diagnosis Stroke Discharge Exam Constitutional WD/WN, vitals as above + frail appearing and cooperative; no acute distress Eyes EOM intact bilaterally; no conjunctival abnormality ENMT external ear and nose normal, oropharynx normal Neck trachea midline, no thyromegaly normal visual inspection Respiratory normal respiratory effort, lungs clear to auscultation no respiratory distress Cardiovascular Rate/Rhythm: + tachycardic and + irregularly irregular Heart Sounds: normal S1 and normal S2 Vessels: no JVD Extremities: no edema Gastrointestinal (Abdomen) Inspection/Auscultation: abdomen normal to inspection; abdomen not distended Musculoskeletal no cyanosis or clubbing, extremities motor strength 5/5 Skin no rashes, warm and dry Neurologic moves all extremities and awake Psychiatric Orientation: alert and cooperative; + not oriented to person Discharge Data Allergies Allergy/AdvReac Type Severity Reaction Status Date / Time Penicillins Allergy Unknown Unknown Verified 03/14/20 08:43 Consultations 03/14/20 09:44 ED Decision to Admit Stat 03/14/20 11:25 Consult Case Management - Discharge Planning Routine Consult Neurology Routine Consult Palliative Care Routine Ordered Studies 03/14/20 08:12 CT angio head w con Stat CT angio neck with con Stat CT head/brain wo con Stat 03/14/20 11:25 MR brain wo con Routine Hospital Course (1) Acute ischemic cerebrovascular accident (CVA) involving left middle cerebral artery territory: Likely embolic stroke from her atrial fibrillation. - MRI brain on 03/14 showed moderate left MCA stroke - Switched to Plavix from ASA - Patient ok to start low-dose atorvastatin. She is reluctant to trial too high a dose. (2) Atrial fibrillation with rapid ventricular response: Chronic atrial fibrillation. Known afib which has been hard to control in the past as she is only somewhat willing to take certain medications. - Continue oral meds as approved by [employer]ORE PR[employer] DEMONSTRATOR: beta-alis and digoxin - Hold anticoagulation. Patient again refused for me. I asked about warfa rin/Coumadin, Eliquis/apixaban, and Xarelto/rivaroxaban, and she vigorously shook her head and said no to all of these. (3) Combined systolic and diastolic heart failure: Prior episode of CHF. Echo in 11/2019 showed EF 20-25%. Dry weight was ~84 kg previously; she is now down to 71 kg on admission. - I do not think she is in acute exacerbation. She is breathing comfortably. Weight stable. No edema. - Lowered Lasix dose to 20 mg daily for possibly lower PO intake. (4) Hypertension: Normally on Lasix and beta-lais. BP presently 130/80. - Continue beta-alis, digoxin, and Lasix (5) DVT prophylaxis: Heparin 5000 units Q12h Total Time Total Time Spent Total Time Spent (In Minutes): 35 Discharge Plan Discharge Items Patient Disposition: Trans Resident Long-Term Care Reason For Visit: STROKE Discharge Diagnosis: Stroke Activity: Resume your previous activity Non-emergency contact: Primary Care Provider and Tank Farm Attendant Call non-emergency contact if: your symptoms worsen Follow-up/Referrals: Bebo Corea [Primary Care Provider] - Diet: Heart Healthy and Low Sodium (2gm) Diet Texture: Pureed (blended smooth) Diet Comment: See dietary suggestions below. Addtl Attending Provider Instructions: Ms. Arreguin was admitted for a stroke. We believe this is due to her atrial fibrillation for which she is not on anticoagulation. This is per patient's wishes, and she again declined anticoagulation in our hospital. We did switch to Plavix from her aspirin which was willing to take. I did lower her Lasix and potassium as her weight has been declining, and she had no signs of volume overload in the hospital. With her reduced PO intake after the stroke, she may not need as much Lasix. For her diet, she will need pureed foods and thin liquids. * Alternate solids and liquids * Fully alert and upright for eating/drinking * Give meds in a carrier (applesauce or pudding) * Single bites / small sips / slow rate * Straws OK Overall, she is doing remarkably better. She was completely aphasic on admission and now is saying some complete sentences. She is improving slowly day by day. Her right arm is also getting stronger as well which was completely paralyzed on admission. She will need continuing speech therapy and PT/OT at [facility]. Pending Studies at Discharge: No Stand-Alone Forms: [facility] Skilled Items Patient informed of condition?: No DNR: No Discharge Level of Care: Acute rehab Communicable Disease: No Discharge Prognosis: Stable Lines: None Urinary Catheter: No Medications and DC Order Prescriptions: New atorvastatin 20 mg Tablet 20 mg PO QAM Qty: 1 RF: 0 clopidogrel 75 mg Tablet 75 mg PO QAM Qty: 1 RF: 0 Continued acetaminophen 325 mg Tablet 650 mg PO Q6H PRN (Reason: Pain) RF: 0 ondansetron HCl [Zofran] 4 mg Tablet 4 mg PO Q6H PRN (Reason: Nausea) RF: 0 digoxin 125 mcg (0.125 mg) Tablet 0.125 mg PO DAILY@1600 Qty: 1 RF: 0 magnesium hydroxide [Milk of Magnesia] 400 mg/5 mL Suspension 30 ml PO DAILY PRN (Reason: Constipation) RF: 0 Stress Formula with Zinc Tablet 1 tab PO DAILY@0800 RF: 0 tramadol 50 mg tablet 50 mg PO Q6H PRN (Reason: Pain) RF: 0 metoprolol succinate 25 mg tablet extended release 24 hr 37.5 mg PO DAILY@0800 RF: 0 Changed furosemide [Lasix] 40 mg Tablet 20 mg PO DAILY@0800 Qty: 0 RF: 0 potassium chloride 20 mEq tablet,ER particles/crystals 20 meq PO DAILY@0800 Qty: 0 RF: 0 Discontinued aspirin 81 mg tablet,delayed release (DR/EC) 81 mg PO DAILY@0900 RF: 0 Discharge Orders: Discharge Order (Routine); Ordered 03/18/20 Ordered By: Gael Briceno Admission Data Admit Date/Time: 03/14/20 10:21 Attending Provider: Gael Briceno Admit Provider: Gael Briceno Primary Care Provider: Bebo Corea Other Providers: Gael Briceno ; Wang Cintron ; Dipti Quinn Other Interventions: Discharge Summary Assessment (RN) Last Done: 03/18/20 14:34 DC Date/Time DO NOT enter until pt leaves facility: 03/18/20 14:58 Coding Level of Care Code D/C Day Management >30 mins Diagnoses Acute ischemic cerebrovascular accident (CVA) involving left middle cerebral artery territory I63.512 Atrial fibrillation with rapid ventricular response I48.91 Combined systolic and diastolic heart failure I50.40 Hypertension I10 DVT prophylaxis Z29.9
== END 2020-03-18 14:58 | DRG 65 ==
LOC: ED 08:12 → 2W 10:21 → 2S 03-15 04:44 → 2W 03-17 17:18

== ENCOUNTER 2020-03-20 08:54 | Inpatient (IN) ==
[2020-03-20] MEDS ORDERED: SODIUM CHLORIDE 0.9% 1000ML 1,000 ML IV ONE (09:48)
--- NOTE | 2020-03-20 09:48 | Emergency Department Note ---
Impression & Plan AMS (altered mental status), Elevated troponin, Acute UTI ED Provider Note NAME: SUZIE CHRISTIAN AGE: 70 SEX: F : 1950 ARRIVES VIA: Ambulance INFORMANT: Patient ED PROVIDER(S): Scott Chirinos DO CHIEF COMPLAINT: AMS HPI: Patient is a 68-year-old female who presents the ER brought in by EMS from heart side as she was found unresponsive. They note that she is normally awake with garbled speech and will nod and shake her head yes and no. She had a rece nt discharge from [facility] following a left-sided MCA with right-sided deficit. She is a full code. History of A. fib not on anticoagulation. Currently on Plavix. History is limited as patient is nonverbal. ROS: Unable to obtain secondary to confusion PAST MEDICAL HISTORY:See Below PAST SURGICAL HISTORY:See Below FAMILY HISTORY:See Below SOCIAL HISTORY:See Below HOME MEDICATIONS:See Below ALLERGIES:See Below VITALS:See Below PHYSICAL EXAMINATION: GENERAL: Sitting up in bed, chronically ill-appearing on 3 L nasal cannula EYE EXAM: normal conjunctiva. PERRL and EOM's grossly intact. OROPHARYNX: no exudate, no erythema, lips, buccal mucosa, and tongue normal and mucous membranes are moist NECK: supple, no nuchal rigidity, no adenopathy, non-tender LUNGS: Diminished bilaterally normal chest wall mechanics HEART: no murmurs, S1 normal and S2 normal ABDOMEN: abdomen soft, non-tender, normo-active bowel sounds, no masses, no rebound or guarding. BACK: Back is symmetrical on inspection and there is no deformity, no midline tenderness, no CVA tenderness. UPPER EXTREMITIES: upper extremities are grossly normal. LOWER EXTREMITIES: No pitting edema. NEURO EXAM: Opens eyes to painful stimuli and withdraws upper extremities and lower extremities to pain. Intermittently moans MEDICAL DECISION MAKING: Patient is a 70-year-old female recently discharged following a stroke who presents the ER for altered mental status and unresponsiveness at heart side. Patient opens her eyes to painful stimuli and withdraws in the upper and lower extremities. She does moan as well. Labs show no significant leukocytosis or anemia. INR was unremarkable. BMP with LFTs was unremarkable. Bilirubin was elevated 2.5 consistent with previous. Troponin was elevated at 0.154. UA showed a clear UTI. CT of her head was unchanged. Questionable infiltrate on the chest x-ray. Patient was given IV antibiotics. Updated bedside. Patient was discussed with the hospitalist admitted for further work-up of her confusion UTI and questionable pneumonia. Triage Nursing notes reviewed. Prior medical records reviewed Vital Signs: reviewed and remarkable for hypertensive Differential diagnosis: Differential Diagnosis includes but is not limited to ischemic Stroke, hemorrhagic stroke, bells palsy, mass, neoplasm, migraine headache, seizure, subarachnoid hemorrhage, TIA, and transient global amnesia. ER treatment provided: See below Diagnostics interpreted by me: ECG: A. fib rate of 58 Left axis No PVCs Nonspecific ST wave changes in the high lateral and V6 Normal QTC Cardiac Monitoring: An order was placed for continuous cardiac monitoring. The monitor shows a rate of 82 with A. fib rhythm. Laboratory studies: As stated above and show below. Imaging studies: Portable AP upright 1 view of the chest shows parenchymal infiltrate. CT of the head shows no new acute disease. Consultation(s): Discussed with hospitalist for admission. ED COURSE: Procedures: none Critical Care: None Past Med/Surg History Medical History Acute combined systolic and diastolic congestive heart failure (Acute) Acute renal insufficiency 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 Goals of care, counseling/discussion HTN (hypertension) (Chronic) Hyperlipemia (Chronic) Hypotension With her hypotension, her Hb is up from prior, and creatinine has bumped sig nificantly in one day so appears to be intravascularly dry - unsure how she will tolerate fluid challenge but may make her tolerate anesthesia better Tachycardia Visual impairment (Chronic) Surgical History No pertinent past surgical history Family History Other No pertinent family history Social History Preferred Language: British 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: No Beliefs That Will Affect Care: None marital status: / Current Living Situation: Half-Way Current Living Situation Comment: from [facility] Feels Safe at Home: Yes Smoking Status: Unknown if ever smoked Hx Alcohol Use: No Hx Substance Use: No Allergies Allergies Allergy/AdvReac Type Severity Reaction Status Date / Time Penicillins Allergy Unknown Unknown Verified 03/20/20 09:05 Home Meds Home Medications Medication Instructions Recorded Confirmed acetaminophen 650 mg PO Q6H PRN 12/15/19 03/20/20 ondansetron HCl [Zofran] 4 mg PO Q6H PRN 12/15/19 03/20/20 Stress Formula with Zinc 1 tab PO DAILY@0800 03/14/20 03/20/20 metoprolol succinate 37.5 mg PO DAILY@0800 03/14/20 03/20/20 tramadol 50 mg PO Q6H PRN 03/14/20 03/20/20 Previous Rx's Medication Instructions Recorded digoxin 0.125 mg PO DAILY@1600 #1 tab 12/24/19 atorvastatin 20 mg PO QAM #1 tab 03/18/20 clopidogrel 75 mg PO QAM #1 tab 03/18/20 furosemide [Lasix] 20 mg PO DAILY@0800 #0 tab 03/18/20 potassium chloride 20 meq PO DAILY@0800 #0 tab 03/18/20 Results & Data (ED) Vital Signs Vital Signs - 24 hr 03/20/20 09:00 03/20/20 09:11 03/20/20 09:12 Temperature Temperature Source Pulse Rate 69 64 Pulse Rate from SpO2 Sensor 64 Respiratory Rate 18 16 Blood Pressure 169/107 H 151/98 H Blood Pressure Mean 130 129 Pulse Oximetry 89 L 100 Oxygen Delivery Method Nasal Cannula Oxygen Flow Rate 0 Sepsis Recent Fever Within 48 Hours Sepsis New/Unexplained Change in Mental Status Sepsis Action Taken by Nursing Oxygen Flow Rate - Titration 3 Fraction of Inspired Oxygen - Titration 98 03/20/20 09:21 03/20/20 09:30 03/20/20 10:36 Temperature 36.4 C L Temperature Source Oral Pulse Rate 73 64 84 Pulse Rate from SpO2 Sensor 78 Respiratory Rate 16 21 18 Blood Pressure 169/107 H 151/105 H 165/117 H Blood Pressure Mean 127 114 132 Pulse Oximetry 99 100 Oxygen Delivery Method Nasal Cannula Oxygen Flow Rate 3 Sepsis Recent Fever Within 48 Hours No Sepsis New/Unexplained Change in Mental Status No Sepsis Action Taken by Nursing No Action Required Oxygen Flow Rate - Titration Fraction of Inspired Oxygen - Titration 03/20/20 10:37 03/20/20 11:00 03/20/20 11:01 Temperature Temperature Source Pulse Rate 83 72 69 Pulse Rate from SpO2 Sensor 89 72 74 Respiratory Rate 20 14 16 Blood Pressure 160/108 H Blood Pressure Mean 135 Pulse Oximetry 100 98 97 Oxygen Delivery Method Oxygen Flow Rate Sepsis Recent Fever Within 48 Hours Sepsis New/Unexplained Change in Mental Status Sepsis Action Taken by Nursing Oxygen Flow Rate - Titration Fraction of Inspired Oxygen - Titration 03/20/20 11:30 03/20/20 11:31 03/20/20 12:00 Temperature Temperature Source Pulse Rate 72 66 70 Pulse Rate from SpO2 Sensor 75 75 65 Respiratory Rate 18 22 16 Blood Pressure 154/122 H 154/89 H Blood Pressure Mean 126 120 Pulse Oximetry 100 100 100 Oxygen Delivery Method Oxygen Flow Rate Sepsis Recent Fever Within 48 Hours Sepsis New/Unexplained Change in Mental Status Sepsis Action Taken by Nursing Oxygen Flow Rate - Titration Fraction of Inspired Oxygen - Titration Laboratory Data Result diagrams: 03/20/20 09:55 03/20/20 09:55 Lab Results 03/20/20 03/20/20 03/20/20 Range/Units 09:02 09:55 09:55 WBC 7.74 (4.8-10.8) K/uL RBC 3.96 L (4.2-5.4) M/uL Hgb 13.0 (12.0-16.0) g/dL Hct 40.1 (37-47) % MCV 101.3 H (80-100) fL MCH 32.8 (25-34) pg MCHC 32.4 (32-36) g/dL RDW Std Deviation 49.1 H (36.4-46.3) fL RDW Coeff of Malia 13.6 (11.5-14.5) % Plt Count 231 (130-400) K/uL MPV 9.0 (7.4-10.4) fL Immature Gran % (Auto) 0.1 % Neut % (Auto) 72.8 % Lymph % (Auto) 17.6 % Dolores % (Auto) 7.6 % Eos % (Auto) 1.8 % Baso % (Auto) 0.1 % Immature Gran # (Auto) 0.01 (0.00-0.02) K/uL Neut # (Auto) 5.63 (1.4-6.5) K/uL Lymph # (Auto) 1.36 (1.2-3.4) K/uL Dolores # (Auto) 0.59 (0.11-0.59) K/uL Eos # (Auto) 0.14 (0-0.5) K/uL Baso # (Auto) 0.01 (0-0.2) K/uL PT 12.4 H (9.0-12.0) Seconds INR 1.2 H (0.9-1.1) APTT 27.4 (21.0-31.0) Seconds PTT Ratio 1.0 Sodium (136-145) mmol/L Potassium (3.5-5.1) mmol/L Chloride (98-107) mmol/L Carbon Dioxide (21-32) mmol/L Anion Gap (3-11) BUN (7-18) mg/dl Creatinine (0.6-1.2) mg/dl Est Cr Clr Drug Dosing Est GFR ( Amer) Est GFR (Non-Af Amer) BUN/Creatinine Ratio (10-20) Glucose (70-99) mg/dl POC Glucose 72 (70-99) mg/dl Lactate (0.4-2.0) mmol/L Calcium (8.5-10.1) mg/dl Magnesium (1.8-2.4) mg/dl Total Bilirubin (0.2-1) mg/dl AST (15-37) U/L ALT (12-78) U/L Alkaline Phosphatase (45-117) U/L Ammonia (11-32) umol/L CK-MB (CK-2) (0.5-3.6) ng/ml Troponin I (0-0.045) ng/ml Total Protein (6.4-8.2) gm/dl Albumin (3.4-5.0) gm/dl Globulin (2.5-4.0) gm/dl Albumin/Globulin Ratio (0.9-2) Urine Color Urine Appearance (Clear) Urine pH (4.5-7.5) Ur Specific Melissa (1.000-1.030) Urine Protein (Negative) Urine Glucose (UA) (Negative) Urine Ketones (Negative) Urine Blood (Negative) Urine Nitrite (Negative) Urine Bilirubin (Negative) Urine Urobilinogen (Negative) Ur Leukocyte Esterase (Negative) Urine WBC (Auto) (0-5) /hpf Urine RBC (Auto) (0-4) /hpf U Hyaline Cast (Auto) (0-5) /lpf U Epithel Cells (Auto) (0-5) /lpf Urine Bacteria (Auto) (Negative) Urine Opiates Screen (Neg) Ur Methadone, Qual (Neg) Urine Barbiturates (Neg) Ur Phencyclidine (PCP) (Neg) U Amphetamin/Meth Scrn (Neg) MDMA (Ecstasy) Screen (Neg) U Benzodiazepines Scrn (Neg) Ur Cocaine Metabolite (Neg) U Marijuana (THC) Screen (Neg) 03/20/20 03/20/20 03/20/20 Range/Units 09:55 09:55 09:55 WBC (4.8-10.8) K/uL RBC (4.2-5.4) M/uL Hgb (12.0-16.0) g/dL Hct (37-47) % MCV (80-100) fL MCH (25-34) pg MCHC (32-36) g/dL RDW Std Deviation (36.4-46.3) fL RDW Coeff of Malia (11.5-14.5) % Plt Count (130-400) K/uL MPV (7.4-10.4) fL Immature Gran % (Auto) % Neut % (Auto) % Lymph % (Auto) % Dolores % (Auto) % Eos % (Auto) % Baso % (Auto) % Immature Gran # (Auto) (0.00-0.02) K/uL Neut # (Auto) (1.4-6.5) K/uL Lymph # (Auto) (1.2-3.4) K/uL Dolores # (Auto) (0.11-0.59) K/uL Eos # (Auto) (0-0.5) K/uL Baso # (Auto) (0-0.2) K/uL PT (9.0-12.0) Seconds INR (0.9-1.1) APTT (21.0-31.0) Seconds PTT Ratio Sodium 141 (136-145) mmol/L Potassium 4.0 (3.5-5.1) mmol/L Chloride 104 (98-107) mmol/L Carbon Dioxide 32 (21-32) mmol/L Anion Gap 5.0 (3-11) BUN 16 (7-18) mg/dl Creatinine 0.78 (0.6-1.2) mg/dl Est Cr Clr Drug Dosing Not Reportable Est GFR ( Amer) 88.0 Est GFR (Non-Af Amer) 76.0 BUN/Creatinine Ratio 21.1 H (10-20) Glucose 80 (70-99) mg/dl POC Glucose (70-99) mg/dl Lactate 1.0 (0.4-2.0) mmol/L Calcium 9.2 (8.5-10.1) mg/dl Magnesium 2.1 (1.8-2.4) mg/dl Total Bilirubin 2.5 H (0.2-1) mg/dl AST 14 L (15-37) U/L ALT 16 (12-78) U/L Alkaline Phosphatase 125 H (45-117) U/L Ammonia < 10.0 L (11-32) umol/L CK-MB (CK-2) 1.1 (0.5-3.6) ng/ml Troponin I 0.154 H* (0-0.045) ng/ml Total Protein 7.1 (6.4-8.2) gm/dl Albumin 3.2 L (3.4-5.0) gm/dl Globulin 3.9 (2.5-4.0) gm/dl Albumin/Globulin Ratio 0.8 L (0.9-2) Urine Color Urine Appearance (Clear) Urine pH (4.5-7.5) Ur Specific Melissa (1.000-1.030) Urine Protein (Negative) Urine Glucose (UA) (Negative) Urine Ketones (Negative) Urine Blood (Negative) Urine Nitrite (Negative) Urine Bilirubin (Negative) Urine Urobilinogen (Negative) Ur Leukocyte Esterase (Negative) Urine WBC (Auto) (0-5) /hpf Urine RBC (Auto) (0-4) /hpf U Hyaline Cast (Auto) (0-5) /lpf U Epithel Cells (Auto) (0-5) /lpf Urine Bacteria (Auto) (Negative) Urine Opiates Screen (Neg) Ur Methadone, Qual (Neg) Urine Barbiturates (Neg) Ur Phencyclidine (PCP) (Neg) U Amphetamin/Meth Scrn (Neg) MDMA (Ecstasy) Screen (Neg) U Benzodiazepines Scrn (Neg) Ur Cocaine Metabolite (Neg) U Marijuana (THC) Screen (Neg) 03/20/20 03/20/20 Range/Units 10:35 10:35 WBC (4.8-10.8) K/uL RBC (4.2-5.4) M/uL Hgb (12.0-16.0) g/dL Hct (37-47) % MCV (80-100) fL MCH (25-34) pg MCHC (32-36) g/dL RDW Std Deviation (36.4-46.3) fL RDW Coeff of Malia (11.5-14.5) % Plt Count (130-400) K/uL MPV (7.4-10.4) fL Immature Gran % (Auto) % Neut % (Auto) % Lymph % (Auto) % Dolores % (Auto) % Eos % (Auto) % Baso % (Auto) % Immature Gran # (Auto) (0.00-0.02) K/uL Neut # (Auto) (1.4-6.5) K/uL Lymph # (Auto) (1.2-3.4) K/uL Dolores # (Auto) (0.11-0.59) K/uL Eos # (Auto) (0-0.5) K/uL Baso # (Auto) (0-0.2) K/uL PT (9.0-12.0) Seconds INR (0.9-1.1) APTT (21.0-31.0) Seconds PTT Ratio Sodium (136-145) mmol/L Potassium (3.5-5.1) mmol/L Chloride (98-107) mmol/L Carbon Dioxide (21-32) mmol/L Anion Gap (3-11) BUN (7-18) mg/dl Creatinine (0.6-1.2) mg/dl Est Cr Clr Drug Dosing Est GFR ( Amer) Est GFR (Non-Af Amer) BUN/Creatinine Ratio (10-20) Glucose (70-99) mg/dl POC Glucose (70-99) mg/dl Lactate (0.4-2.0) mmol/L Calcium (8.5-10.1) mg/dl Magnesium (1.8-2.4) mg/dl Total Bilirubin (0.2-1) mg/dl AST (15-37) U/L ALT (12-78) U/L Alkaline Phosphatase (45-117) U/L Ammonia (11-32) umol/L CK-MB (CK-2) (0.5-3.6) ng/ml Troponin I (0-0.045) ng/ml Total Protein (6.4-8.2) gm/dl Albumin (3.4-5.0) gm/dl Globulin (2.5-4.0) gm/dl Albumin/Globulin Ratio (0.9-2) Urine Color Dark Yellow Urine Appearance Clear (Clear) Urine pH 5.0 (4.5-7.5) Ur Specific Melissa 1.030 (1.000-1.030) Urine Protein 1+ H (Negative) Urine Glucose (UA) Negative (Negative) Urine Ketones Negative (Negative) Urine Blood Negative (Negative) Urine Nitrite Positive A (Negative) Urine Bilirubin Negative (Negative) Urine Urobilinogen Positive H (Negative) Ur Leukocyte Esterase Trace H (Negative) Urine WBC (Auto) 1-5 (0-5) /hpf Urine RBC (Auto) 0-4 (0-4) /hpf U Hyaline Cast (Auto) 1-5 (0-5) /lpf U Epithel Cells (Auto) 0-5 (0-5) /lpf Urine Bacteria (Auto) Negative (Negative) Urine Opiates Screen Neg (Neg) Ur Methadone, Qual Neg (Neg) Urine Barbiturates Neg (Neg) Ur Phencyclidine (PCP) Neg (Neg) U Amphetamin/Meth Scrn Neg (Neg) MDMA (Ecstasy) Screen Neg (Neg) U Benzodiazepines Scrn Neg (Neg) Ur Cocaine Metabolite Neg (Neg) U Marijuana (THC) Screen Neg (Neg) Administered Medications Sodium Chloride (1/2 Nss) 1,000 mls @ 75 mls/hr IV .[id number] ANTOLIN Stop: 04/19/20 13:46 Last Admin: 03/20/20 14:18 Dose: 75 mls/hr Documented by: [id number] Vancomycin HCl 1,500 mg/ (Sodium Chloride) 530 mls @ 200 mls/hr IV NOW STA Stop: 03/20/20 16:37 Last Admin: 03/20/20 14:18 Dose: 200 mls/hr Documented by: [id number] Discontinued Medications Sodium Chloride (Nss 1000ml) 1,000 mls @ 999 mls/hr IV .[id number] ONE Stop: 03/20/20 10:48 Last Infusion: 03/20/20 11:35 Dose: 0 mls/hr Documented by: [id number] Admin: 03/20/20 09:57 Dose: 999 mls/hr Documented by: [id number] Ceftriaxone Sodium (Rocephin) 1,000 mg in 50 mls @ 100 mls/hr IV NOW STA Stop: 03/20/20 11:35 Last Infusion: 03/20/20 13:06 Dose: 0 mls/hr Documented by: [id number] Admin: 03/20/20 12:35 Dose: 100 mls/hr Documented by: [id number] Miscellaneous (Patient's Height And/Or Weight Needed) 1 ea N/A Q15M ANTOLIN Stop: 04/19/20 14:14 Last Admin: 03/20/20 15:09 Dose: Not Given Documented by: [id number] Admin: 03/20/20 15:09 Dose: Not Given Documented by: [id number] Admin: 03/20/20 15:09 Dose: Not Given Documented by: [id number] Discharge Plan Visit Data *Final* Discharge Date/Time: 03/20/20 12:47 Chief Complaint: Altered Mental Status ED Provider: Scott Chirinos Discharge Problem: AMS (altered mental status), Elevated troponin, Acute UTI Patient Disposition: Admitted As Inpatient Discharge Instructions Interventions: ED Discharge Assessment Last Done: 03/20/20 12:47 Discharge Problem: AMS (altered mental status) Qualifiers: Altered mental status type: unspecified Qualified Code(s): R41.82 - Altered mental status, unspecified
[2020-03-20 10:14] LABS: Basophils # (auto) 0.01 K/uL (0-0.2); Basophils % (auto) 0.1 %; Eosinophils # (auto) 0.14 K/uL (0-0.5); Eosinophils % (auto) 1.8 %; Hematocrit (blood only) 40.1 % (37-47); Immature Granulocytes # (auto) 0.01 K/uL (0.00-0.02); Immature Granulocytes % (auto) 0.1 %; Lymphocytes # (auto) 1.36 K/uL (1.2-3.4); Lymphocytes % (auto) 17.6 %; Mean Corpuscular Hemoglobin 32.8 pg (25-34); Mean Corpuscular Hgb Conc 32.4 g/dL (32-36); Mean Corpuscular Volume 101.3 fL (80-100); Monocytes # (auto) 0.59 K/uL (0.11-0.59); Monocytes % (auto) 7.6 %; Neutrophils # (auto) 5.63 K/uL (1.4-6.5); Neutrophils % (auto) 72.8 %; Platelet Count 231 K/uL (130-400); RDW Coefficient of Variation 13.6 % (11.5-14.5); RDW Standard Deviation 49.1 fL (36.4-46.3); Red Blood Count 3.96 M/uL (4.2-5.4); White Blood Count 7.74 K/uL (4.8-10.8)
--- NOTE | 2020-03-20 10:14 | CT Scan Report ---
CT SCAN OF THE BRAIN WITHOUT IV CONTRAST CLINICAL HISTORY: Strokelike symptoms. COMPARISON STUDY: CT an MRI of the brain dated 03/14/2020. TECHNIQUE: Unenhanced axial CT scan of the brain is performed from the vertex to the skull base. A do se lowering technique was utilized adhering to the principles of ALARA. The skull base was scanned tw ice due to motion artifact. CT DOSE: 1007.40 mGy.cm FINDINGS: Brain parenchyma: There is loss of brynat-white matter differentiation throughout the left MCA territor y consistent with an evolving infarct. No hemorrhage is seen and there is no significant mass effect. There are age-related involutional changes noting mild subcortical and periventricular microangiopa thic change. There are chronic bilateral cerebellar infarcts. No extra-axial fluid collection is see n. Ventricles, sulci, cisterns: Prominent secondary to involutional change. Intracranial vasculature: There is atherosclerotic calcification of the cavernous carotid and vertebr al arteries. Calvarium: Unremarkable. Sinuses and mastoids: The visualized paranasal sinuses are clear. The mastoid air cells are well pneu matized. Orbits: The bony orbits are grossly intact. IMPRESSION: 1. There is a large evolving left MCA territory infarct. 2. No new foci of acute ischemia are suggested by CT criteria. 3. There is no hemorrhage or mass effect. ACT 112: Negative or not required by law. Electronically signed by: Enio Maguire M.D. 03/20/2020 10:12 AM
[2020-03-20 10:27] LABS: INR 1.2 (0.9-1.1); Partial Thromboplastin Time 27.4 Seconds (21.0-31.0); Prothrombin Time 12.4 Seconds (9.0-12.0)
[2020-03-20 10:33] LABS: Alanine Aminotransferase 16 U/L (12-78); Albumin Level 3.2 gm/dl (3.4-5.0); Aspartate Aminotransferase 14 U/L (15-37); BUN Creatinine Ratio 21.1 (10-20); Blood Urea Nitrogen 16 mg/dl (7-18); Calcium 9.2 mg/dl (8.5-10.1); Carbon Dioxide 32 mmol/L (21-32); Chloride 104 mmol/L (98-107); Glucose 80 mg/dl (70-99); Magnesium 2.1 mg/dl (1.8-2.4); Sodium 141 mmol/L (136-145)
[2020-03-20 10:45] LABS: Albumin Globulin Ratio 0.8 (0.9-2); Alkaline Phosphatase 125 U/L (45-117); Bilirubin,Total 2.5 mg/dl (0.2-1); Creatine Kinase MB 1.1 ng/ml (0.5-3.6); Globulin 3.9 gm/dl (2.5-4.0); Total Protein 7.1 gm/dl (6.4-8.2); Troponin I 0.154 ng/ml (0-0.045)
[2020-03-20 10:51] LABS: Appearance Urine Clear (Clear); Bacteria Urine Automated Negative (Negative); Blood Urine Negative (Negative); Color Urine Dark Yellow; Epithelial Cell Urine Auto 0-5 /lpf (0-5); Glucose Urine UA Negative (Negative); Ketones Urine Negative (Negative); Leukocyte Esterase Urine Trace (Negative); Nitrite Urine Positive (Negative); Protein Urine 1+ (Negative); RBC Urine Automated 0-4 /hpf (0-4); Urobilinogen Urine Positive (Negative)
[2020-03-20 10:58] LABS: Bilirubin Urine Negative (Negative); Ictotest Urine Negative (Negative)
--- NOTE | 2020-03-20 11:02 | XRay Report ---
XR chest 1V portable CLINICAL HISTORY: ams mental status change COMPARISON STUDY: 03/15/2020 FINDINGS: Moderate stable cardiomegaly. Probable developing left base infiltrate. Lungs otherwise camelia ear clear. IMPRESSION: 1. Stable cardiomegaly. 2. Developing parenchymal infiltrate left lung base. ACT 112: Negative or not required by law. The above report was generated using voice recognition software. It may contain grammatical, syntax or spelling errors. Electronically signed by: Zackery Love M.D. 03/20/2020 11:01 AM
[2020-03-20] MEDS ORDERED: cefTRIAXone SODIUM 1,000 MG/50 ML BAG IV STA (11:06)
[2020-03-20 11:27] LABS: Amphetamines+Metham, Urine Neg (Neg); Barbiturates, Urine Neg (Neg); Benzodiazepine, Urine Neg (Neg); Cocaine, Urine Neg (Neg); MDMA (Ecstacy), Urine Neg (Neg); Methadone, Urine Neg (Neg); Opiate, Urine Neg (Neg); Phencyclidine, Urine Neg (Neg)
--- NOTE | 2020-03-20 11:42 | History & Physical Report ---
Date of Service March 20, 2020 Assessment & Plan (1) Acute metabolic encephalopathy: Acute metabolic encephalopathy likely secondary to UTI and possible pneumonia in the setting of recent large left MCA territory ischemic CVA that is evolving on head CT here on admission. Ammonia level is normal -Admit to medical floor with telemetry -Continue IV antibiotics for UTI and pneumonia as below -Keep n.p.o. until more awake and alert to try swallowing, speech therapy consulted for when she is ready to try eating again -Will replace p.o. meds with IV meds were necessary -Continue gentle IV fluids with caution given history of CHF -Given multiple recent admissions and very poor overall prognosis, will consult palliative care medicine again to help facilitate goals of care discussion with the patient and/or her family members as they are quite familiar with our palliative care team at this point (2) Acute UTI: With abnormal urinalysis with +nitrite but only trace LE and 1-5 WBCs, no bacteria, but with metabolic encephalopathy No evidence of sepsis at this time -Follow urine culture-was not sent automatically from the ER as only had 1-5 WBCs-will order a repeat urine culture, however she is already received antibiotics at this point so may not be reliable -follow blood cultures -Received 1 dose of ceftriaxone in the ER, but given possible pneumonia as well, will transition to cefepime for additional Pseudomonas coverage (3) Pneumonia: With possible left lower lobe infiltrate seen on chest x-ray She has not required any more oxygen than her normal 3 L, difficult to get any history out of her she is lethargic and nonverbal -We will cover for gram-negative pneumonia with cefepime and for MRSA pneumonia with IV vancomycin -Check MRSA nasal swab and will discontinue vancomycin if MRSA nasal swab is negative -Continue supplemental O2 -Consider repeat chest x-ray tomorrow to confirm -Check procalcitonin in the morning (4) Elevated troponin: Troponin mildly elevated upon admission at 0.15 Likely secondary to myocardial demand ischemia in the setting of severe CHF with acute illness and recent stroke -Serial troponin -Follow on telemetry No acute ischemic changes seen on ECG No need for repeat echocardiogram at this time (5) Acute ischemic cerebrovascular accident (CVA) involving left middle cerebral artery territory: With recent large territory left MCA acute ischemic CVA last admission with resultant right-sided hemiparesis and right facial droop with expressive aphasia CT head here with evolving stroke in the same area Overall poor prognosis Patient with atrial fibrillation and refusal previously of anticoagulation puts her at increased risk for future strokes -Continue Plavix in the morning if she is able to take p.o.-if cannot take p.o. due to lethargy, would recommend changing to ND aspirin 300 mg daily -Continue statin if able to take p.o. (6) Combined systolic and diastolic heart failure: With chronic combined systolic and diastolic CHF with most recent EF being 20-25% as well as with RV dysfunction Currently does not seem volume overloaded and is n.p.o. due to metabolic encephalopathy as above -Hold home Lasix and giving gentle IV fluids -Daily weights, I's and O's -Continue beta-alis -Is not on an RIKKI inhibitor or ARB-question if it is from patient declining this in the past (7) Atrial fibrillation: In atrial fibrillation here and has a known history of such with refusal of anticoagulation in the past -Given that she is n.p.o. not able to take pills, will convert her p.o. digoxin and metoprolol to IV forms -Monitor on telemetry (8) Hypertension: Blood pressures here are elevated -Will add on hydralazine as needed SBP greater than 180 given recent large stroke and possibility of hemorrhagic conversion (9) Elevated bilirubin: Bilirubin elevated here at 2.5 which is around her baseline Question if has Gilbert's disease No need to follow (10) Venous stasis dermatitis of both lower extremities: Chronic Holding diuretics as above while n.p.o. -Follow (11) Hypoxia: With chronic respiratory failure with hypoxia, on 3 L nasal cannula at home -Continue supplemental O2 here to keep pulse ox greater than 92% (12) DVT prophylaxis: SQ Lovenox Disposition-admit to medical floor with telemetry for acute metabolic encephalopathy, possible pneumonia and UTI in the setting of recent large acute CVA Eventually placement back at the [facility] when medically stable Palliative care consultation appreciated Remains a full code at this time, however has an extremely guarded and poor prognosis History of Present Illness Chief Complaint: Unresponsive Primary Care Provider: Bebo Corea This patient is a 70-year-old female with a history of atrial fibrillation who declines anticoagulation, chronic combined systolic and diastolic CHF, HTN, blindness, lower extremity edema with wounds, a recent large left MCA ischemic CVA resulting in right-sided hemiparesis, nonambulatory status due to left hip fracture which was not surgically repaired, and dyslipidemia. She presents from the [facility] at [facility] after being noted to be unresponsive and lethargic. I was unable to obtain any history from her, but all history obtained from the ER physician. In the ER, vital signs were normal, she was in rate controlled atrial fibrillation, and was afebrile, but was found to have evidence of a UTI on urinalysis, as well as a possible left lower lobe infiltrate on chest x-ray. S he was on her usual 3 L nasal cannula of oxygen. She was only responsive to sternal rub and would open her eyes and then fall back asleep for me. Her baseline since her stroke recently is apparently garbled speech but can answer questions with nods of head yes and no. In the ER, she was given IV ceftriaxone, 1 L of IV normal saline. She will be admitted for acute metabolic encephalopathy likely secondary to UTI and possible pneumonia in the setting of recent large territory left MCA ischemic CVA. Allergies Allergy/AdvReac Type Severity Reaction Status Date / Time Penicillins Allergy Unknown Unknown Verified 03/20/20 09:05 Home Medications Home Medications Medication Instructions Recorded Confirmed Type acetaminophen 650 mg PO Q6H PRN 12/15/19 03/20/20 History ondansetron HCl [Zofran] 4 mg PO Q6H PRN 12/15/19 03/20/20 History digoxin 0.125 mg PO DAILY@1600 #1 tab 12/24/19 03/20/20 Rx Stress Formula with Zinc 1 tab PO DAILY@0800 03/14/20 03/20/20 History metoprolol succinate 37.5 mg PO DAILY@0800 03/14/20 03/20/20 History tramadol 50 mg PO Q6H PRN 03/14/20 03/20/20 History atorvastatin 20 mg PO QAM #1 tab 03/18/20 03/20/20 Rx clopidogrel 75 mg PO QAM #1 tab 03/18/20 03/20/20 Rx furosemide [Lasix] 20 mg PO DAILY@0800 #0 tab 03/18/20 03/20/20 Rx potassium chloride 20 meq PO DAILY@0800 #0 tab 03/18/20 03/20/20 Rx Past Med/Surg History Medical History Acute ischemic cerebrovascular accident (CVA) involving left middle cerebral artery territory (Acute) Atrial ectopy (Chronic) Atrial fibrillation Chronic wound of extremity Closed left hip fracture Combined systolic and diastolic heart failure Edema (Acute) Elevated bilirubin Hemiparesis Hyperlipemia (Chronic) Hypertension Hypoxia Macrocytosis Medical non-compliance (Acute) Non-sustained ventricular tachycardia Peripheral vascular disease Visual impairment (Chronic) Surgical History No pertinent past surgical history Family History Other No pertinent family history Social History Preferred Language: Thai Communication Ability: Unable [employer] Operator Required: No Beliefs That Will Affect Care: None marital status: / Current Living Situation: [facility] Current Living Situation Comment: from [facility] Feels Safe at Home: Yes Smoking Status: Unknown if ever smoked Hx Alcohol Use: No Hx Substance Use: No Review of Systems Review of Systems: Unobtainable due to reduced consciousness Physical Exam Constitutional: + ill appearing and + lethargic; no acute distress Will only briefly open eyes to sternal rub, will not respond to questions, with right-sided flaccid paralysis Eyes: + anicteric sclerae; + no PERRL (Pupils are equally round but both are minimally reactive to light) Neck: trachea midline, no thyromegaly Respiratory: normal respiratory effort, lungs clear to auscultation Cardiovascular: Rate/Rhythm: regular rate and + irregularly irregular Heart Sounds: no murmur Extremities: + edema (1-2+ pitting edema of the bilateral legs with thickened skin and chronic venous stasis changes) Chest (Breasts): Chest: normal inspection of chest Gastrointestinal (Abdomen): normal bowel sounds, soft, nontender, no hepatosplenomegaly Musculoskeletal: Extremities: extremities normal to inspection; no cyanosis and no clubbing Skin: + lesion (Ichthyosis bilateral legs) Neurologic: + focal motor deficit (Right-sided flaccid paralysis, does voluntarily move her left arm up and down during my interview); + does not move all extremities and + not awake Speech / Cognition: + expressive aphasia Withdraws to painful stimulus in all 4 extremities, but does not follow any commands, does not speak Lymphatic: no lymphedema Results & Data Results & Data ([facility]) Vital Signs (Past 12 Hours) Vital Signs Temp Pulse Resp BP Pulse Ox 03/20/20 10:36 84 18 165/117 H 03/20/20 09:30 64 21 151/105 H 100 03/20/20 09:21 36.4 C L 73 16 169/107 H 99 03/20/20 09:12 64 16 151/98 H 100 03/20/20 09:11 89 L 03/20/20 09:00 69 18 169/107 H Laboratory Results 03/20/20 03/20/20 03/20/20 Range/Units 16:15 15:21 10:35 WBC (4.8-10.8) K/uL RBC (4.2-5.4) M/uL Hgb (12.0-16.0) g/dL Hct (37-47) % MCV (80-100) fL MCH (25-34) pg MCHC (32-36) g/dL RDW Std Deviation (36.4-46.3) fL RDW Coeff of Malia (11.5-14.5) % Plt Count (130-400) K/uL MPV (7.4-10.4) fL Immature Gran % (Auto) % Neut % (Auto) % Lymph % (Auto) % [place] % (Auto) % Eos % (Auto) % Baso % (Auto) % Immature Gran # (Auto) (0.00-0.02) K/uL Neut # (Auto) (1.4-6.5) K/uL Lymph # (Auto) (1.2-3.4) K/uL [place] # (Auto) (0.11-0.59) K/uL Eos # (Auto) (0-0.5) K/uL Baso # (Auto) (0-0.2) K/uL PT (9.0-12.0) Seconds INR (0.9-1.1) APTT (21.0-31.0) Seconds PTT Ratio Sodium (136-145) mmol/L Potassium (3.5-5.1) mmol/L Chloride (98-107) mmol/L Carbon Dioxide (21-32) mmol/L Anion Gap (3-11) BUN (7-18) mg/dl Creatinine (0.6-1.2) mg/dl Est Cr Clr Drug Dosing Est GFR ( Amer) Est GFR (Non-Af Amer) BUN/Creatinine Ratio (10-20) Glucose (70-99) mg/dl POC Glucose (70-99) mg/dl Lactate (0.4-2.0) mmol/L Calcium (8.5-10.1) mg/dl Magnesium (1.8-2.4) mg/dl Total Bilirubin (0.2-1) mg/dl AST (15-37) U/L ALT (12-78) U/L Alkaline Phosphatase (45-117) U/L Ammonia (11-32) umol/L CK-MB (CK-2) (0.5-3.6) ng/ml Troponin I 0.136 H* (0-0.045) ng/ml Total Protein (6.4-8.2) gm/dl Albumin (3.4-5.0) gm/dl Globulin (2.5-4.0) gm/dl Albumin/Globulin Ratio (0.9-2) Urine Color Dark Yellow Urine Appearance Clear (Clear) Urine pH 5.0 (4.5-7.5) Ur Specific [place] 1.030 (1.000-1.030) Urine Protein 1+ H (Negative) Urine Glucose (UA) Negative (Negative) Urine Ketones Negative (Negative) Urine Blood Negative (Negative) Urine Nitrite Positive A (Negative) Urine Bilirubin Negative (Negative) Urine Urobilinogen Positive H (Negative) Ur Leukocyte Esterase Trace H (Negative) Urine WBC (Auto) 1-5 (0-5) /hpf Urine RBC (Auto) 0-4 (0-4) /hpf U Hyaline Cast (Auto) 1-5 (0-5) /lpf U Epithel Cells (Auto) 0-5 (0-5) /lpf Urine Bacteria (Auto) Negative (Negative) Nasal Screen MRSA (PCR) Negative (Negative) Urine Opiates Screen (Neg) Ur Methadone, Qual (Neg) Urine Barbiturates (Neg) Ur Phencyclidine (PCP) (Neg) U Amphetamin/Meth Scrn (Neg) MDMA (Ecstasy) Screen (Neg) U Benzodiazepines Scrn (Neg) Ur Cocaine Metabolite (Neg) U Marijuana (THC) Screen (Neg) 03/20/20 03/20/20 03/20/20 Range/Units 10:35 09:55 09:55 WBC (4.8-10.8) K/uL RBC (4.2-5.4) M/uL Hgb (12.0-16.0) g/dL Hct (37-47) % MCV (80-100) fL MCH (25-34) pg MCHC (32-36) g/dL RDW Std Deviation (36.4-46.3) fL RDW Coeff of Malia (11.5-14.5) % Plt Count (130-400) K/uL MPV (7.4-10.4) fL Immature Gran % (Auto) % Neut % (Auto) % Lymph % (Auto) % [place] % (Auto) % Eos % (Auto) % Baso % (Auto) % Immature Gran # (Auto) (0.00-0.02) K/uL Neut # (Auto) (1.4-6.5) K/uL Lymph # (Auto) (1.2-3.4) K/uL [place] # (Auto) (0.11-0.59) K/uL Eos # (Auto) (0-0.5) K/uL Baso # (Auto) (0-0.2) K/uL PT (9.0-12.0) Seconds INR (0.9-1.1) APTT (21.0-31.0) Seconds PTT Ratio Sodium (136-145) mmol/L Potassium (3.5-5.1) mmol/L Chloride (98-107) mmol/L Carbon Dioxide (21-32) mmol/L Anion Gap (3-11) BUN (7-18) mg/dl Creatinine (0.6-1.2) mg/dl Est Cr Clr Drug Dosing Est GFR ( Amer) Est GFR (Non-Af Amer) BUN/Creatinine Ratio (10-20) Glucose (70-99) mg/dl POC Glucose (70-99) mg/dl Lactate 1.0 (0.4-2.0) mmol/L Calcium (8.5-10.1) mg/dl Magnesium (1.8-2.4) mg/dl Total Bilirubin (0.2-1) mg/dl AST (15-37) U/L ALT (12-78) U/L Alkaline Phosphatase (45-117) U/L Ammonia < 10.0 L (11-32) umol/L CK-MB (CK-2) (0.5-3.6) ng/ml Troponin I (0-0.045) ng/ml Total Protein (6.4-8.2) gm/dl Albumin (3.4-5.0) gm/dl Globulin (2.5-4.0) gm/dl Albumin/Globulin Ratio (0.9-2) Urine Color Urine Appearance (Clear) Urine pH (4.5-7.5) Ur Specific [place] (1.000-1.030) Urine Protein (Negative) Urine Glucose (UA) (Negative) Urine Ketones (Negative) Urine Blood (Negative) Urine Nitrite (Negative) Urine Bilirubin (Negative) Urine Urobilinogen (Negative) Ur Leukocyte Esterase (Negative) Urine WBC (Auto) (0-5) /hpf Urine RBC (Auto) (0-4) /hpf U Hyaline Cast (Auto) (0-5) /lpf U Epithel Cells (Auto) (0-5) /lpf Urine Bacteria (Auto) (Negative) Nasal Screen MRSA (PCR) (Negative) Urine Opiates Screen Neg (Neg) Ur Methadone, Qual Neg (Neg) Urine Barbiturates Neg (Neg) Ur Phencyclidine (PCP) Neg (Neg) U Amphetamin/Meth Scrn Neg (Neg) MDMA (Ecstasy) Screen Neg (Neg) U Benzodiazepines Scrn Neg (Neg) Ur Cocaine Metabolite Neg (Neg) U Marijuana (THC) Screen Neg (Neg) 03/20/20 03/20/20 03/20/20 Range/Units 09:55 09:55 09:55 WBC 7.74 (4.8-10.8) K/uL RBC 3.96 L (4.2-5.4) M/uL Hgb 13.0 (12.0-16.0) g/dL Hct 40.1 (37-47) % MCV 101.3 H (80-100) fL MCH 32.8 (25-34) pg MCHC 32.4 (32-36) g/dL RDW Std Deviation 49.1 H (36.4-46.3) fL RDW Coeff of Malia 13.6 (11.5-14.5) % Plt Count 231 (130-400) K/uL MPV 9.0 (7.4-10.4) fL Immature Gran % (Auto) 0.1 % Neut % (Auto) 72.8 % Lymph % (Auto) 17.6 % [place] % (Auto) 7.6 % Eos % (Auto) 1.8 % Baso % (Auto) 0.1 % Immature Gran # (Auto) 0.01 (0.00-0.02) K/uL Neut # (Auto) 5.63 (1.4-6.5) K/uL Lymph # (Auto) 1.36 (1.2-3.4) K/uL [place] # (Auto) 0.59 (0.11-0.59) K/uL Eos # (Auto) 0.14 (0-0.5) K/uL Baso # (Auto) 0.01 (0-0.2) K/uL PT 12.4 H (9.0-12.0) Seconds INR 1.2 H (0.9-1.1) APTT 27.4 (21.0-31.0) Seconds PTT Ratio 1.0 Sodium 141 (136-145) mmol/L Potassium 4.0 (3.5-5.1) mmol/L Chloride 104 (98-107) mmol/L Carbon Dioxide 32 (21-32) mmol/L Anion Gap 5.0 (3-11) BUN 16 (7-18) mg/dl Creatinine 0.78 (0.6-1.2) mg/dl Est Cr Clr Drug Dosing Not Reportable Est GFR ( Amer) 88.0 Est GFR (Non-Af Amer) 76.0 BUN/Creatinine Ratio 21.1 H (10-20) Glucose 80 (70-99) mg/dl POC Glucose (70-99) mg/dl Lactate (0.4-2.0) mmol/L Calcium 9.2 (8.5-10.1) mg/dl Magnesium 2.1 (1.8-2.4) mg/dl Total Bilirubin 2.5 H (0.2-1) mg/dl AST 14 L (15-37) U/L ALT 16 (12-78) U/L Alkaline Phosphatase 125 H (45-117) U/L Ammonia (11-32) umol/L CK-MB (CK-2) 1.1 (0.5-3.6) ng/ml Troponin I 0.154 H* (0-0.045) ng/ml Total Protein 7.1 (6.4-8.2) gm/dl Albumin 3.2 L (3.4-5.0) gm/dl Globulin 3.9 (2.5-4.0) gm/dl Albumin/Globulin Ratio 0.8 L (0.9-2) Urine Color Urine Appearance (Clear) Urine pH (4.5-7.5) Ur Specific [place] (1.000-1.030) Urine Protein (Negative) Urine Glucose (UA) (Negative) Urine Ketones (Negative) Urine Blood (Negative) Urine Nitrite (Negative) Urine Bilirubin (Negative) Urine Urobilinogen (Negative) Ur Leukocyte Esterase (Negative) Urine WBC (Auto) (0-5) /hpf Urine RBC (Auto) (0-4) /hpf U Hyaline Cast (Auto) (0-5) /lpf U Epithel Cells (Auto) (0-5) /lpf Urine Bacteria (Auto) (Negative) Nasal Screen MRSA (PCR) (Negative) Urine Opiates Screen (Neg) Ur Methadone, Qual (Neg) Urine Barbiturates (Neg) Ur Phencyclidine (PCP) (Neg) U Amphetamin/Meth Scrn (Neg) MDMA (Ecstasy) Screen (Neg) U Benzodiazepines Scrn (Neg) Ur Cocaine Metabolite (Neg) U Marijuana (THC) Screen (Neg) 03/20/20 Range/Units 09:02 WBC (4.8-10.8) K/uL RBC (4.2-5.4) M/uL Hgb (12.0-16.0) g/dL Hct (37-47) % MCV (80-100) fL MCH (25-34) pg MCHC (32-36) g/dL RDW Std Deviation (36.4-46.3) fL RDW Coeff of Malia (11.5-14.5) % Plt Count (130-400) K/uL MPV (7.4-10.4) fL Immature Gran % (Auto) % Neut % (Auto) % Lymph % (Auto) % [place] % (Auto) % Eos % (Auto) % Baso % (Auto) % Immature Gran # (Auto) (0.00-0.02) K/uL Neut # (Auto) (1.4-6.5) K/uL Lymph # (Auto) (1.2-3.4) K/uL [place] # (Auto) (0.11-0.59) K/uL Eos # (Auto) (0-0.5) K/uL Baso # (Auto) (0-0.2) K/uL PT (9.0-12.0) Seconds INR (0.9-1.1) APTT (21.0-31.0) Seconds PTT Ratio Sodium (136-145) mmol/L Potassium (3.5-5.1) mmol/L Chloride (98-107) mmol/L Carbon Dioxide (21-32) mmol/L Anion Gap (3-11) BUN (7-18) mg/dl Creatinine (0.6-1.2) mg/dl Est Cr Clr Drug Dosing Est GFR ( Amer) Est GFR (Non-Af Amer) BUN/Creatinine Ratio (10-20) Glucose (70-99) mg/dl POC Glucose 72 (70-99) mg/dl Lactate (0.4-2.0) mmol/L Calcium (8.5-10.1) mg/dl Magnesium (1.8-2.4) mg/dl Total Bilirubin (0.2-1) mg/dl AST (15-37) U/L ALT (12-78) U/L Alkaline Phosphatase (45-117) U/L Ammonia (11-32) umol/L CK-MB (CK-2) (0.5-3.6) ng/ml Troponin I (0-0.045) ng/ml Total Protein (6.4-8.2) gm/dl Albumin (3.4-5.0) gm/dl Globulin (2.5-4.0) gm/dl Albumin/Globulin Ratio (0.9-2) Urine Color Urine Appearance (Clear) Urine pH (4.5-7.5) Ur Specific [place] (1.000-1.030) Urine Protein (Negative) Urine Glucose (UA) (Negative) Urine Ketones (Negative) Urine Blood (Negative) Urine Nitrite (Negative) Urine Bilirubin (Negative) Urine Urobilinogen (Negative) Ur Leukocyte Esterase (Negative) Urine WBC (Auto) (0-5) /hpf Urine RBC (Auto) (0-4) /hpf U Hyaline Cast (Auto) (0-5) /lpf U Epithel Cells (Auto) (0-5) /lpf Urine Bacteria (Auto) (Negative) Nasal Screen MRSA (PCR) (Negative) Urine Opiates Screen (Neg) Ur Methadone, Qual (Neg) Urine Barbiturates (Neg) Ur Phencyclidine (PCP) (Neg) U Amphetamin/Meth Scrn (Neg) MDMA (Ecstasy) Screen (Neg) U Benzodiazepines Scrn (Neg) Ur Cocaine Metabolite (Neg) U Marijuana (THC) Screen (Neg) Diagnostic Findings Chest x-ray image personally reviewed by me and agree with the following report: XR chest 1V portable CLINICAL HISTORY: ams mental status change COMPARISON STUDY: 03/15/2020 FINDINGS: Moderate stable cardiomegaly. Probable developing left base infiltrate. Lungs otherwise appear clear. IMPRESSION: 1. Stable cardiomegaly. 2. Developing parenchymal infiltrate left lung base. Head CT noncontrast images personally reviewed by me and agree with the following report: CT SCAN OF THE BRAIN WITHOUT IV CONTRAST CLINICAL HISTORY: Strokelike symptoms. COMPARISON STUDY: CT an MRI of the brain dated 03/14/2020. TECHNIQUE: Unenhanced axial CT scan of the brain is performed from the vertex to the skull base. A dose lowering technique was utilized adhering to the principles of ALARA. The skull base was scanned twice due to motion artifact. CT DOSE: 1007.40 mGy.cm FINDINGS: Brain parenchyma: There is loss of bryant-white matter differentiation throughout the left MCA territory consistent with an evolving infarct. No hemorrhage is seen and there is no significant mass effect. There are age-related involutional changes noting mild subcortical and periventricular microangiopathic change. There are chronic bilateral cerebellar infarcts. No extra-axial fluid collection is seen. Ventricles, sulci, cisterns: Prominent secondary to involutional change. Intracranial vasculature: There is atherosclerotic calcification of the cavernous carotid and vertebral arteries. Calvarium: Unremarkable. Sinuses and mastoids: The visualized paranasal sinuses are clear. The mastoid air cells are well pneumatized. Orbits: The bony orbits are grossly intact. IMPRESSION: 1. There is a large evolving left MCA territory infarct. 2. No new foci of acute ischemia are suggested by CT criteria. 3. There is no hemorrhage or mass effect. ECG Additional Comments: ECG with atrial fibrillation with rate 58, bradycardic, with lateral ST-T wave changes, unchanged from previous Code Status & VTE Plan Code Status Full code-based on previous palliative medicine consultation and discussions with patient's on last admission VTE Prophylaxis Plan VTE Prophylaxis will be ordered: Yes PG Care Time/CCT Total # of Minutes Spent Total Time Spent with Patient: Total time spent is greater than 50% in coordination of care (as documented) at patient's floor/unit and/or counseling patient: Coding Level of Care Code 67635 Initial Inpt Care Lvl 3 Diagnoses Acute metabolic encephalopathy G93.41 Acute UTI N39.0 Pneumonia J18.9 Elevated troponin R79.89 Acute ischemic cerebrovascular accident (CVA) involving left middle cerebral artery territory I63.512 Combined systolic and diastolic heart failure I50.40 Atrial fibrillation I48.91 Hypertension I10 Elevated bilirubin R17 Venous stasis dermatitis of both lower extremities I87.2 Hypoxia R09.02 DVT prophylaxis Z29.9
[2020-03-20] MEDS ORDERED: VANCOMYCIN CONSULT ACTIVE PRN (13:47)
[2020-03-20] MEDS ORDERED: ONDANSETRON INJ 2 MG/ML 2 ML VIAL IV PRN (13:47)
[2020-03-20] MEDS ORDERED: VANCOMYCIN HCL 1,500 MG in SODIUM CHLORIDE 0.9% 500 ML IV STA (13:59)
[2020-03-20] MEDS: SODIUM CHLORIDE 0.45 % 1,000 ML IV SCH (14:18)
--- NOTE | 2020-03-20 15:00 | Palliative Care Consultation ---
Date of Consultation March 20, 2020 Assessment & Plan (1) Goals of care, counseling/discussion: -Pt is a 70 year old female patient with PMH HTN, A fib with RVR, severe LV dysfunction with EF 20-25% on echo this February, RV dysfunction, visual impairment, hyperlipidemia, inoperable left hip fracture in Oct of this year and venous stasis ulcers, was just discharged on 03/18 after suffering a right CVA on 03/14. Staff called 911 this a.m. when patient was found to be unresponsive. CT scan showed a large, evolving left MCA infarct. Patient had right-sided hemiparesis and expressive aphasia during her last admission-these were improving. Patient returned to the [facility] for rehab on 03/18. Patient continued to refuse anticoagulation for her A. fib, she did agree to switch from aspirin to Plavix and start a low-dose statin. Her A. fib was controlled with digoxin and metoprolol. Palliative care is consulted to discuss goals of care with family. On exam, patient is nonverbal, did contact her son, Genesis, regarding her current condition, worsening stroke symptoms and discuss CODE STATUS. Son stated he would contact other family members and call back with a decision regarding CODE STATUS. Genesis's father called with multiple questions - the family is meeting and will call back regarding code status. -Patient is well-known to palliative service as we have been consulted on her many times, including her last admission. -Patient has been living at the [facility] since her hospitalization with the hip fracture this past October. Patient is a unique individual with very non- conventional approach to her health care. Patient known to refuse meds at times-refused AC during her last admission, did agree to switching from ASA to Plavix and starting low-dose statin last admission. -On several previous admissions, patient has stated that she would want her son Genesis to be main contact/decision maker, but she refused to do any POA paperwork. She has a son Nahun who she also trusts. she did not want her two local daughters and son to make decisions for her. She has a total of 8 children. -I discussed code status with her son-with extension of her stroke, recommended DO NOT RESUSCITATE status at this time. We will continue full care up until the point of cardiac or respiratory arrest. -For now, continue with current supportive care. We will continue to follow and engage with family regarding goals of care. (2) Acute ischemic cerebrovascular accident (CVA) involving left middle cerebral artery territory: (3) Hemiparesis: (4) Expressive aphasia: (5) Atrial fibrillation with rapid ventricular response: (6) Edema: Edema type: unspecified Qualified Code(s): R60.9 - Edema, unspecified History of Present Illness Reason for Consultation: Address Code Status as well as goals of care Requesting Physician: Dr Olivier Attending Physician: Chelsea Olivier MD History of Present Illness -Pt is a 70 year old female patient with PMH HTN, A fib with RVR, severe LV dysfunction with EF 20-25% on echo this February, RV dysfunction, visual impairment, hyperlipidemia, inoperable left hip fracture in Oct of this year and venous stasis ulcers, was just discharged on 03/18 after suffering a right CVA on 03/14. Staff called 911 this a.m. when patient was found to be unresponsive. CT scan showed a large, evolving left MCA infarct. Patient had right-sided hemiparesis and expressive aphasia during her last admission-these were improving. Patient returned to the [facility] for rehab on 03/18. Patient continued to refuse anticoagulation for her A. fib, she did agree to switch from aspirin to Plavix and start a low-dose statin. Her A. fib was controlled with digoxin and metoprolol. Palliative care is consulted to discuss goals of care w ith family. On exam, patient is nonverbal, did contact her son, Genesis, regarding her current condition, worsening stroke symptoms and discuss CODE STATUS. Son stated he would contact other family members and call back with a decision regarding CODE STATUS. Genesis's father called with multiple questions - the family is meeting and will call back regarding code status. -Patient is well-known to palliative service as we have been consulted on her many times, including her last admission. -Patient has been living at the [facility] since her hospitalization with the hip fracture this past October. Patient is a unique individual with very non- conventional approach to her health care. Patient known to refuse meds at times-refused AC during her last admission, did agree to switching from ASA to Plavix and starting low-dose statin -On several previous admissions, patient has stated that she would want her son Genesis to be main contact/decision maker, but she refused to do any POA paperwork. She has a son Nahun who she also trusts. she did not want her two local daughters and son to make decisions for her. She has a total of 8 children. -I discussed code status with her son-with extension of her stroke, recommended DO NOT RESUSCITATE status at this time. We will continue full care up until the point of cardiac or respiratory arrest. -For now, continue with current supportive care. We will continue to follow and engage with family regarding goals of care. Allergies Allergy/AdvReac Type Severity Reaction Status Date / Time Penicillins Allergy Unknown Unknown Verified 03/20/20 09:05 Home Medications Home Medications Medication Instructions Recorded Confirmed Type acetaminophen 650 mg PO Q6H PRN 12/15/19 03/20/20 History ondansetron HCl [Zofran] 4 mg PO Q6H PRN 12/15/19 03/20/20 History digoxin 0.125 mg PO DAILY@1600 #1 tab 12/24/19 03/20/20 Rx Stress Formula with Zinc 1 tab PO DAILY@0800 03/14/20 03/20/20 History metoprolol succinate 37.5 mg PO DAILY@0800 03/14/20 03/20/20 History tramadol 50 mg PO Q6H PRN 03/14/20 03/20/20 History atorvastatin 20 mg PO QAM #1 tab 03/18/20 03/20/20 Rx clopidogrel 75 mg PO QAM #1 tab 03/18/20 03/20/20 Rx furosemide [Lasix] 20 mg PO DAILY@0800 #0 tab 03/18/20 03/20/20 Rx potassium chloride 20 meq PO DAILY@0800 #0 tab 03/18/20 03/20/20 Rx Patient History Medical History Acute combined systolic and diastolic congestive heart failure (Acute) Acute renal insufficiency 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 Goals of care, counseling/discussion HTN (hypertension) (Chronic) Hyperlipemia (Chronic) Hypotension With her hypotension, her Hb is up from prior, and creatinine has bumped significantly in one day so appears to be intravascularly dry - unsure how she will tolerate fluid challenge but may make her tolerate anesthesia better Tachycardia Visual impairment (Chronic) Surgical History No pertinent past surgical history Family History Other No pertinent family history Social History Preferred Language: Armenian Communication Ability: Unable Hvac Installation Technician Required: No Beliefs That Will Affect Care: None marital status: / Current Living Situation: Halfway Current Living Situation Comment: from [facility] Feels Safe at Home: Yes Smoking Status: Unknown if ever smoked Hx Alcohol Use: No Hx Substance Use: No Review of Systems Review of Systems: Unobtainable due to cognitive status Physical Exam Physical Exam: PE: Patient did open eyes and responds to voice HEENT: EOMI Respirations: Clear breath sounds, unlabored CV: Regular rate, lower extremity edema unchanged Abdomen: Soft, no grimace with palpation Neuro: Dense right hemiparesis, did not follow commands, did not attempt to speak. Patient did nod yes slightly to all questions. Results & Data Vital Signs (Past 12 Hours) Vital Signs Temp Pulse Pulse Resp BP BP Pulse Ox 03/20/20 13:59 97.5 F L 96 H 18 156/89 H 93 03/20/20 13:01 93 H 20 100 03/20/20 13:00 82 20 164/119 H 99 03/20/20 12:31 85 18 100 03/20/20 12:30 78 16 162/104 H 99 03/20/20 12:01 66 17 100 03/20/20 12:00 70 16 154/89 H 100 03/20/20 11:31 66 22 100 03/20/20 11:30 72 18 154/122 H 100 03/20/20 11:01 69 16 97 03/20/20 11:00 72 14 160/108 H 98 03/20/20 10:37 83 20 100 03/20/20 10:36 84 18 165/117 H 03/20/20 09:30 64 21 151/105 H 100 03/20/20 09:21 97.5 F L 73 16 169/107 H 99 03/20/20 09:12 64 16 151/98 H 100 03/20/20 09:11 89 L 03/20/20 09:00 69 18 169/107 H PG Care Time/CCT Total # of Minutes Spent Total Time Spent with Patient: Total time spent 70 minutes with greater than 50% of the time at the bedside assessing patient's current functional status and extent of her CVA. Spoke with multiple family members by phone Coding Level of Care Code 57134 Inpt Consult Level 3 Diagnoses Goals of care, counseling/discussion Z71.89 Acute ischemic cerebrovascular accident (CVA) involving left middle cerebral artery territory I63.512 Hemiparesis G81.90 Expressive aphasia R47.01 Atrial fibrillation with rapid ventricular response I48.91 Edema R60.9 Edema type: unspecified Time Spent (min) 70
[2020-03-20] MEDS: PATIENT'S HEIGHT AND/OR WEIGHT NEEDED SCH (15:09)
--- NOTE | 2020-03-20 15:21 | Pharmacy Report ---
Pharmacy Abx Initial Consult - Date of Service March 20, 2020 - Pharmacy Dosing Scope Date of Consult: 03/20/20 Consultation requested by: Dr. Olivier Pharmacy is consulted to initiate vancomycin IV dosing therapy, order appropriate labs and adjust drug dose/frequency. - Subjective The patient is a 70 year old F admitted on 03/20/20 12:01. - Objective Height: 5 ft 7 in Weight: 73.2 kg Vital Signs (Past 12hrs): Vital Signs Temp Pulse Pulse Resp BP BP Pulse Ox 03/20/20 13:59 36.4 C L 96 H 18 156/89 H 93 03/20/20 13:01 93 H 20 100 03/20/20 13:00 82 20 164/119 H 99 03/20/20 12:31 85 18 100 03/20/20 12:30 78 16 162/104 H 99 03/20/20 12:01 66 17 100 03/20/20 12:00 70 16 154/89 H 100 03/20/20 11:31 66 22 100 03/20/20 11:30 72 18 154/122 H 100 03/20/20 11:01 69 16 97 03/20/20 11:00 72 14 160/108 H 98 03/20/20 10:37 83 20 100 03/20/20 10:36 84 18 165/117 H 03/20/20 09:30 64 21 151/105 H 100 03/20/20 09:21 36.4 C L 73 16 169/107 H 99 03/20/20 09:12 64 16 151/98 H 100 03/20/20 09:11 89 L 03/20/20 09:00 69 18 169/107 H Lab Results (24hrs): Laboratory Tests (24 Hours) 03/20/20 03/20/20 09:55 09:55 WBC 7.74 Neut # (Auto) 5.63 Creatinine 0.78 Est Cr Clr Drug Dosing Not Reportable Micro Results: 03/20/20 12:26 Aerobic Blood Culture - Pending Blood Anaerobic Blood Culture - Pending 03/20/20 12:20 Aerobic Blood Culture - Pending Blood Anaerobic Blood Culture - Pending - Risk Factors for Resistance * Resident in a fpc or extended-care facility * Hospitalization for 48 hours or more within the past 90 days (03/14 - 03/18) * 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 She was recently discharged from [facility] on 03/18/20 following a stroke. Developing parenchymal infiltrate noted on left lung base. MRSA nasal swab pending. Broad spectrum antibiotics are appropriate at this time. Plan Vancomycin IV * Patient meets criteria for vancomycin AUC dosing nomogram * Will dose at 1000 mg IV q12h * AUC/REN is the preferred PK/PD target for vancomycin * Target AUC/REN = 400-600 * AUC guided dosing is effective and associated with decreased risk of nephrotoxicity Cefepime IV * 2 g IV q8h - appropriate Pharmacy will continue to follow and will adjust dose/frequency as necessary. Thank you.
[2020-03-20] MEDS ORDERED: DIGOXIN 0.125 MG TAB PO SCH (16:00)
[2020-03-20] MEDS: CEFEPIME 2,000 MG in SYRINGE 0 ML IV SCH ×2 (16:30→23:26)
[2020-03-20] MEDS: ENOXAPARIN INJ 40 MG/0.4 ML SYR SQ SCH (16:31)
--- NOTE | 2020-03-20 16:32 | Electrocardiogram Report ---
Test Reason : Blood Pressure : / mmHG Vent. Rate : 058 BPM Atrial Rate : 060 BPM P-R Int : 000 ms QRS Dur : 098 ms QT Int : 398 ms P-R-T Axes : 000 -31 153 degrees QTc Int : 390 ms Atrial fibrillation with slow ventricular response Left axis deviation Minimal voltage criteria for LVH, may be normal variant Anterior infarct , age undetermined Abnormal ECG When compared with ECG of 15-MAR-2020 04:15, Vent. rate has decreased BY 74 BPM Confirmed by Neal Dunn ([id number]) on 03/20/2020 4:32:08 PM Referred By: Bebo Hartmike Confirmed By:Neal Dunn
[2020-03-20] MEDS ORDERED: DIGOXIN 125 MCG in SYRINGE 9.5 ML IV STA (17:43)
[2020-03-20] MEDS ORDERED: HydrALAZINE HCL 20 MG/ML VIAL IV PRN (20:38)
[2020-03-20] MEDS: METOPROLOL TARTRATE 1 MG/ML VIAL IV SCH ×2 (21:11→23:29)
[2020-03-21] MEDS ORDERED: VANCOMYCIN HCL 1,000 MG in SODIUM CHLORIDE 0.9% 250 ML IV SCH
[2020-03-21] MEDS: SODIUM CHLORIDE 0.45 % 1,000 ML IV SCH ×2 (03:06→15:40)
[2020-03-21] MEDS ORDERED: ACETAMINOPHEN 325 MG TAB PO PRN (03:39)
[2020-03-21] MEDS: METOPROLOL TARTRATE 1 MG/ML VIAL IV SCH ×4 (05:59→20:47)
[2020-03-21 07:20] LABS: Basophils # (auto) 0.02 K/uL (0-0.2); Basophils % (auto) 0.2 %; Eosinophils # (auto) 0.04 K/uL (0-0.5); Eosinophils % (auto) 0.4 %; Hematocrit (blood only) 43.6 % (37-47); Hemoglobin 13.6 g/dL (12.0-16.0); Immature Granulocytes # (auto) 0.03 K/uL (0.00-0.02); Immature Granulocytes % (auto) 0.3 %; Lymphocytes # (auto) 0.89 K/uL (1.2-3.4); Lymphocytes % (auto) 8.8 %; Mean Corpuscular Hemoglobin 31.3 pg (25-34); Mean Corpuscular Hgb Conc 31.2 g/dL (32-36); Mean Corpuscular Volume 100.2 fL (80-100); Mean Platelet Volume 9.4 fL (7.4-10.4); Monocytes # (auto) 0.82 K/uL (0.11-0.59); Monocytes % (auto) 8.1 %; Neutrophils # (auto) 8.28 K/uL (1.4-6.5); Neutrophils % (auto) 82.2 %; Platelet Count 236 K/uL (130-400); RDW Coefficient of Variation 13.6 % (11.5-14.5); RDW Standard Deviation 49.5 fL (36.4-46.3); Red Blood Count 4.35 M/uL (4.2-5.4); White Blood Count 10.08 K/uL (4.8-10.8)
[2020-03-21] MEDS: CEFEPIME 2,000 MG in SYRINGE 0 ML IV SCH ×2 (07:44→15:37)
[2020-03-21 07:52] LABS: Albumin Level 3.2 gm/dl (3.4-5.0); BUN Creatinine Ratio 19.3 (10-20); Calcium 9.3 mg/dl (8.5-10.1); Creatinine Clr Calc Pharmacy 58.9 ml/min; Est GFR (African American) 80.5; Est GFR (Non-African American) 69.4; Magnesium 2.1 mg/dl (1.8-2.4); Potassium 3.8 mmol/L (3.5-5.1)
[2020-03-21 07:59] LABS: Total Protein 7.4 gm/dl (6.4-8.2)
[2020-03-21] MEDS ORDERED: METOPROLOL SUCC 25MG EXT REL TAB PO SCH (08:00)
--- NOTE | 2020-03-21 08:14 | Hospitalist Progress Note ---
Date of Service March 21, 2020 Assessment & Plan (1) Acute metabolic encephalopathy: Acute metabolic encephalopathy likely secondary to UTI and possible pneumonia in the setting of recent large left MCA territory ischemic CVA that is progressively evolving on head CT here on admission. AMS and unresponsiveness due to sequelae of recent cerebral infarction Patient failed both bedside and speech therapy swallowing evaluations all medications are changed to intravenous forms when able. According to family continue wishes for full support and full code we will continue intravenous fluids at this time. Overall outlook is extremely guarded and family was made aware of this opinion -Given multiple recent admissions and very poor overall prognosis, will consult palliative care medicine again to help facilitate goals of care discussion with the patient and/or her family members as they are quite familiar with our palliative care team at this point (2) Acute UTI: With abnormal urinalysis with +nitrite but only trace LE and 1-5 WBCs, no bacteria, but with metabolic encephalopathy Sepsis has been ruled out -Follow urine culture and blood cultures -Received 1 dose of ceftriaxone in the ER, but given possible pneumonia as well, will transition to cefepime for additional Pseudomonas coverage (3) Pneumonia: With possible left lower lobe infiltrate seen on chest x-ray though not typical location may be concern for aspiration given her marked swallowing impairment She has not required any more oxygen than her normal 3 L, difficult to get any history out of her she is lethargic and nonverbal -We will cover for gram-negative pneumonia with cefepime and for MRSA pneumonia with IV vancomycin -Procalcitonin level is low suggesting this may be pneumonitis, although she is always at risk for aspiration gram-negative pneumonia given her swallowing dysfunction (4) Elevated troponin: Troponin mildly elevated upon admission Troponin may be elevated due to demand ischemia could be from brain injury no suspected acute coronary syndrome in this patient (5) Acute ischemic cerebrovascular accident (CVA) involving left middle cerebral artery territory: With recent large territory left MCA acute ischemic CVA last admission with resultant right-sided hemiparesis (although patient can grossly move right sided at this time) and right facial droop with expressive aphasia CT head here with evolving stroke in the same area Overall poor prognosis, this opinion of poor prognosis was transmitted to the family Patient with atrial fibrillation and refusal previously of anticoagulation puts her at increased risk for future strokes Patient is unable to take Plavix or a statin medication orally subsequently she will be changed to aspirin per rectum until swallowing improves (6) Combined systolic and diastolic heart failure: With chronic combined systolic and diastolic CHF with most recent EF being 20-25% as well as with RV dysfunction Continue to evaluate volume status with IV fluids and holding diuretics -Continue beta-alis heart rate is been elevated will change to more frequent IV dosing -Is not on an RIKKI inhibitor or ARB-blood pressures are elevated if not controlled by beta-alis may consider using enalapril AT intravenously were done, thank you (7) Atrial fibrillation: In atrial fibrillation here and has a known history of such with refusal of anticoagulation in the past -Given that she is n.p.o. not able to take pills, will convert her p.o. digoxin and metoprolol to IV forms -Monitor on telemetry (8) Hypertension: Blood pressures here are elevated -Will add on hydralazine as needed SBP greater than 180 given recent large stroke and possibility of hemorrhagic conversion, may consider using enalapril if scheduled antihypertensives are required. (9) Elevated bilirubin: Bilirubin elevated here at 2.5 which is around her baseline Question if has Gilbert's disease No need to follow (10) Venous stasis dermatitis of both lower extremities: Chronic Holding diuretics as above while n.p.o. No need for wound care evaluation at this time (11) Hypoxia: With chronic respiratory failure with hypoxia, on 3 L nasal cannula at home -Continue supplemental O2 here to keep pulse ox greater than 92% (12) DVT prophylaxis: SQ Lovenox Disposition-admit to medical floor with telemetry for acute metabolic encephalopathy, possible pneumonia and UTI in the setting of recent large acute CVA Eventually placement back at the [facility] when medically stable Palliative care consultation appreciated Remains a full code at this time, however has an extremely guarded and poor prognosis I spoke with multiple family members on 03/21 including her son her sister and her son's father. They were all made aware of the grave impairment this patient is undergone however are not willing to change her CODE STATUS or to withdraw care. Wishes to reevaluate on a daily basis. Admission and Anticipated Discharge Date Admission Date: March 20, 2020 Subjective this pt is responsive to voice but is not with purposeful responses, she can spontaneously move all extremities but does not make an effort to speak. she cannot swallow and only drools Review of Systems Review of Systems: Unobtainable due to cognitive status Physical Exam Physical Exam: The patient appeared limited in mild to moderate distress Vital signs as documented. Tachycardia likely from lack of oral medications Lungs are diminished at the bases with coarse rhonchi Cardiac exam, tachycardic and irregular Abdominal exam reveals normal bowel sounds, soft non tender, no masses Extremities are chronic venous stasis changes and edema is noted Neurologic exam she responds to voice otherwise does not cooperate Skin is with chronic skin changes to lower extremities Results & Data Results & Data ([facility]) Vital Signs (Past 12 Hours) Vital Signs Temp Pulse Pulse Resp BP BP Pulse Ox 03/21/20 05:59 75 167/74 H 03/21/20 00:30 85 03/20/20 23:29 107 H 157/87 H 03/20/20 22:50 98.2 F 83 20 157/87 H 99 03/20/20 21:11 115 H 165/90 H PG Care Time/CCT Total # of Minutes Spent Total Time Spent with Patient: Total time spent is greater than 50% in coordination of care (as documented) at patient's floor/unit and/or counseling patient: Coding Level of Care Code 05129 Subseq Hosp Care Lvl 3 Diagnoses Acute metabolic encephalopathy G93.41 Acute UTI N39.0 Pneumonia J18.9 Elevated troponin R79.89 Acute ischemic cerebrovascular accident (CVA) involving left middle cerebral artery territory I63.512 Combined systolic and diastolic heart failure I50.40 Atrial fibrillation I48.91 Hypertension I10 Elevated bilirubin R17 Venous stasis dermatitis of both lower extremities I87.2 Hypoxia R09.02 DVT prophylaxis Z29.9
[2020-03-21] MEDS ORDERED: ATORVASTATIN 20 MG TAB PO SCH (09:00)
[2020-03-21] MEDS ORDERED: CLOPIDOGREL BISULFATE 75 MG TAB PO SCH (09:00)
[2020-03-21] MEDS: ENOXAPARIN INJ 40 MG/0.4 ML SYR SQ SCH (14:26)
--- NOTE | 2020-03-21 15:39 | Palliative Care Progress Note ---
Date of Service March 21, 2020 Assessment & Plan (1) Goals of care, counseling/discussion: -Pt is a 70 year old female patient with PMH HTN, A fib with RVR, severe LV dysfunction with EF 20-25% on echo this February, RV dysfunction, visual impairment, hyperlipidemia, inoperable left hip fracture in Oct of this year and venous stasis ulcers, was just discharged on 03/18 after suffering a right CVA on 03/14. Staff called 911 this a.m. when patient was found to be unresponsive. CT scan showed a large, evolving left MCA infarct. Patient had right-sided hemiparesis and expressive aphasia during her last admission-these were improving. Patient returned to the [facility] for rehab on 03/18. Patient continued to refuse anticoagulation for her A. fib, she did agree to switch from aspirin to Plavix and start a low-dose statin. Her A. fib was controlled with digoxin and metoprolol. Palliative care is consulted to discuss goals of care with family. On exam, patient is unresponsive to voice or touch. Did contact her son, Genesis, yesterday, regarding her current condition, w orsening stroke symptoms and discuss CODE STATUS. Son stated he would contact other family members and call back with a decision regarding CODE STATUS. Genesis's father called with multiple questions. Son did have my cell phone number-did not call back. Dr. Atkins, was able to contact son-family has decided to continue her full CODE STATUS -Patient is well-known to palliative service as we have been consulted on her many times, including her last admission. -Patient has been living at the [facility] since her hospitalization with the hip fracture this past October. Patient is a unique individual with very non- conventional approach to her health care. Patient known to refuse meds at times-refused AC during her last admission, did agree to switching from ASA to Plavix and starting low-dose statin last admission. -On several previous admissions, patient has stated that she would want her son Genesis to be main contact/decision maker, but she refused to do any POA paperwork. She has a son Nahun who she also trusts. she did not want her two local daughters and son to make decisions for her. She has a total of 8 children. -For now, continue with current supportive care. We will continue to follow and engage with family regarding goals of care. (2) Acute ischemic cerebrovascular accident (CVA) involving left middle cerebral artery territory: (3) Hemiparesis: (4) Expressive aphasia: (5) Atrial fibrillation with rapid ventricular response: (6) Edema: Subjective Spoke with patient's son at length yesterday-son was supposed to get back to me regarding family's decision regarding CODE STATUS and goals of care-son did not call me back. Did receive a call that went to voicemail from son's father. Attending physician, Dr. Atkins, was able to reach the son, Genesis, family has decided to keep patient a full code. Family is aware that patient is unresponsive, unable to take p.o. Review of Systems Review of Systems: Unobtainable due to cognitive status Physical Exam Physical Exam: PE: Patient did not respond to voice or vigorous touch, appears comfortable HEENT: Dry mucous membranes, excess oral secretions Respirations: Unlabored, no rhonchi CV: Tachycardic, lower extremity edema Abdomen: Soft, no grimace on palpation Extremities: Warm to touch, bilateral lower extremity edema Neuro: Unresponsive to voice or touch Results & Data Vital Signs (Past 12 Hours) Vital Signs Pulse Pulse Resp BP BP Pulse Ox 03/21/20 10:46 134 H 24 168/97 H 91 03/21/20 05:59 75 167/74 H PG Care Time/CCT Total # of Minutes Spent Total Time Spent with Patient: Total time spent 25 minutes with greater than 50% of the time spent at bedside assessing patient's current level of function as well as collaborating with attending physician. Coding Level of Care Code 67446 Subseq Hosp Care Lvl 2 Diagnoses Goals of care, counseling/discussion Z71.89 Acute ischemic cerebrovascular accident (CVA) involving left middle cerebral artery territory I63.512 Hemiparesis G81.90 Expressive aphasia R47.01 Atrial fibrillation with rapid ventricular response I48.91 Edema R60.9 Edema type: unspecified Time Spent (min) 25 (1) Edema Edema type: unspecified Qualified Code(s): R60.9 - Edema, unspecified
[2020-03-21] MEDS: DIGOXIN 125 MCG in SYRINGE 9.5 ML IV SCH (16:23)
[2020-03-21] MEDS: METOPROLOL TARTRATE 1 MG/ML VIAL IV PRN (18:04)
[2020-03-21] MEDS ORDERED: NITROGLYCERIN 2% OINTMENT 30GM TUBE EXT STA (20:53)
[2020-03-21] MEDS ORDERED: FUROSEMIDE 40 MG/4 ML VIAL IV ONE (20:55)
[2020-03-21] MEDS ORDERED: NITROGLYCERIN 2% OINTMENT 30GM TUBE ONE (20:55)
[2020-03-21] MEDS ORDERED: MAGNESIUM SULFATE / D5W 1 GM/100 ML BAG IV ONE (21:00)
[2020-03-21] MEDS ORDERED: DIGOXIN 125 MCG in SYRINGE 9.5 ML IV ONE (21:00)
[2020-03-21 21:07] LABS: Basophils # (auto) 0.04 K/uL (0-0.2); Basophils % (auto) 0.4 %; Eosinophils # (auto) 0.05 K/uL (0-0.5); Eosinophils % (auto) 0.4 %; Hematocrit (blood only) 41.9 % (37-47); Hemoglobin 13.5 g/dL (12.0-16.0); Immature Granulocytes # (auto) 0.03 K/uL (0.00-0.02); Immature Granulocytes % (auto) 0.3 %; Lymphocytes # (auto) 1.46 K/uL (1.2-3.4); Mean Corpuscular Hemoglobin 31.9 pg (25-34); Mean Corpuscular Volume 99.1 fL (80-100); Mean Platelet Volume 9.3 fL (7.4-10.4); Monocytes # (auto) 0.76 K/uL (0.11-0.59); Monocytes % (auto) 6.8 %; Neutrophils # (auto) 8.86 K/uL (1.4-6.5); Neutrophils % (auto) 79.1 %; Platelet Count 283 K/uL (130-400); RDW Coefficient of Variation 13.8 % (11.5-14.5); RDW Standard Deviation 48.9 fL (36.4-46.3); Red Blood Count 4.23 M/uL (4.2-5.4)
[2020-03-21] MEDS ORDERED: FUROSEMIDE 20 MG in SYRINGE 0 ML IV ONE (21:15)
[2020-03-21 21:24] LABS: iSTAT Allen Test Pass; iSTAT Arterial Blood Gas HCO3 24 meg/L (19-24); iSTAT Arterial Blood Gas pCO2 39 mmHg (35-46); iSTAT Arterial Blood Gas pO2 79 mmHg (80-95); iSTAT Carbon Dioxide 25 mmol/L (24-31); iSTAT Site L Radial
[2020-03-21 21:24] LABS: Albumin Level 3.4 gm/dl (3.4-5.0); BUN Creatinine Ratio 19.8 (10-20); Calcium 9.7 mg/dl (8.5-10.1); Creatinine Clr Calc Pharmacy 55.6 ml/min; Est GFR (Non-African American) 64.7
[2020-03-21 21:30] LABS: Albumin Globulin Ratio 0.8 (0.9-2); Bilirubin,Total 3.6 mg/dl (0.2-1); Globulin 4.1 gm/dl (2.5-4.0); Total Protein 7.5 gm/dl (6.4-8.2)
[2020-03-21 21:36] LABS: Mean Corpuscular Hgb Conc 32.2 g/dL (32-36)
[2020-03-22] MEDS: CEFEPIME 2,000 MG in SYRINGE 0 ML IV SCH ×4 (00:43→23:11)
[2020-03-22] MEDS: METOPROLOL TARTRATE 1 MG/ML VIAL IV SCH ×7 (01:04→20:53)
[2020-03-22 03:20] LABS: Basophils # (auto) 0.04 K/uL (0-0.2); Basophils % (auto) 0.4 %; Eosinophils % (auto) 1.1 %; Hematocrit (blood only) 38.4 % (37-47); Hemoglobin 12.3 g/dL (12.0-16.0); Immature Granulocytes # (auto) 0.02 K/uL (0.00-0.02); Immature Granulocytes % (auto) 0.2 %; Lymphocytes # (auto) 1.56 K/uL (1.2-3.4); Mean Corpuscular Hemoglobin 31.2 pg (25-34); Mean Corpuscular Volume 97.5 fL (80-100); Mean Platelet Volume 8.9 fL (7.4-10.4); Monocytes # (auto) 0.84 K/uL (0.11-0.59); Monocytes % (auto) 9.2 %; Neutrophils # (auto) 6.59 K/uL (1.4-6.5); Neutrophils % (auto) 72.1 %; Platelet Count 260 K/uL (130-400); RDW Coefficient of Variation 13.6 % (11.5-14.5); RDW Standard Deviation 48.5 fL (36.4-46.3); Red Blood Count 3.94 M/uL (4.2-5.4); White Blood Count 9.15 K/uL (4.8-10.8)
[2020-03-22 03:46] LABS: BUN Creatinine Ratio 21.4 (10-20); Calcium 8.7 mg/dl (8.5-10.1); Creatinine Clr Calc Pharmacy 62.6 ml/min; Est GFR (African American) 86.7; Est GFR (Non-African American) 74.8; Magnesium 1.9 mg/dl (1.8-2.4); Phosphorus 2.6 mg/dl (2.5-4.9); Potassium 3.5 mmol/L (3.5-5.1)
[2020-03-22] MEDS ORDERED: METOPROLOL TARTRATE 1 MG/ML VIAL IV STA (04:48)
[2020-03-22] MEDS ORDERED: MoRPHine SULFATE 2 MG/ML CARP IV STA (04:48)
[2020-03-22] MEDS ORDERED: MoRPHine SULFATE 2 MG/ML CARP ONE (04:51)
[2020-03-22] MEDS: SODIUM CHLORIDE 0.45 % 1,000 ML IV SCH (04:56)
[2020-03-22] MEDS ORDERED: POTASSIUM CHLORIDE / WTR 10 MEQ/100 ML PLCT IV ONE (05:00)
[2020-03-22] MEDS ORDERED: MAGNESIUM SULFATE 50% 2 GM in DEXTROSE 5% 100 ML IV ONE (05:15)
--- NOTE | 2020-03-22 06:58 | Communication Note ---
Date of Service: March 22, 2020 Feliz tamez called for diaphoresis, tachypnea, respiratory distress. At bedside assessment patient responds in open eyes to touch and verbal stimulus, but does not follow commands. Hypertensive and diaphoretic. Trace crackles in the lung reynoso posteriorly. In A. fib with RVR, rate 150s with suspected pulmonary edema. Patient given IV metoprolol. Chest x-ray showed increased pulmonary congestion. Patient treated with Lasix and 1/2 inch of Nitropaste. BiPAP brought to bedside. Blood gas showed normal pH and mild hypoxemia without hypercapnia. Patient respirations improved with above treatments, however increased rate and respiratory status continued to worsen overnight. Case discussed with Héctor son by phone, discussed that noninvasive ventilation would be used for support but if she continued to worsen she may require transfer to the intensive care unit and potential intubation. Was also discussed that given her severely impaired EF medical frailty that BiPAP could cause an acute decompensation. Discussed and clarified goals of care with her son who reached out to his brother and father. He called back to confirm that they did not want to move to comfort measures if she were to worsen, and would want transfer to the ICU with full measures including intubation. Patient was improving on CPAP at time of reevaluation, and was clinically stable. Case discussed with ICU PA.
--- NOTE | 2020-03-22 07:12 | XRay Report ---
SINGLE VIEW CHEST CLINICAL HISTORY: Tachycardia. FINDINGS: An AP, portable, upright chest radiograph is compared to study dated 03/20/2020 and correlate d with chest CT dated 10/19/2015. The examination is degraded by portable technique and patient rotat ion. The heart is enlarged noting atherosclerotic calcification of the thoracic aorta. There is promi nence of the pulmonary vasculature. Emphysema and chronic interstitial thickening is similar to previ ous. There is bibasilar consolidation, left greater than right with small pleural effusions. No pneum othorax is seen. The skeletal structures are osteopenic. The bony thorax is grossly intact. IMPRESSION: 1. Cardiomegaly and emphysema. There is prominence of the pulmonary vasculature. Correlate clinically for evidence of mild congestive failure. 2. Left greater than right bibasilar airspace consolidation and small pleural effusions. Correlate cl inically for evidence of pneumonia/aspiration pneumonitis. Radiographic follow-up to resolution is re commended. ACT 112: Negative or not required by law. Electronically signed by: Enio Maguire M.D. 03/22/2020 7:11 AM
--- NOTE | 2020-03-22 07:25 | Hospitalist Progress Note ---
Date of Service March 22, 2020 Assessment & Plan (1) Acute metabolic encephalopathy: Acute metabolic encephalopathy, contributed to by possible aspiration or gram negative pneumonia in the setting of recent large left MCA territory ischemic CVA that is progressively evolving on head CT here on admission. AMS and unresponsiveness due to sequelae of recent cerebral infarction The pt's outlook is guarded with dependence on NIPPV, influenced by acute on chonic systolic heart failure and also acute on chronic diastolic heart failure worsened by Afib RVR due to inability to take oral medicines. Patient failed both bedside and speech therapy swallowing evaluations all medications are changed to intravenous forms when able. According to family continue wishes for full support and full code we will continue intravenous fluids at this time. Overall outlook is extremely guarded and family was made aware of this opinion -Given multiple recent admissions and very poor overall prognosis, will consult palliative care medicine again to help facilitate goals of care discussion with the patient and/or her family members as they are quite familiar with our palliative care team at this point (2) Pneumonia: With possible left lower lobe infiltrate seen on chest x-ray though not typical location may be concern for aspiration given her marked swallowing impairment She has not required any more oxygen than her normal 3 L, difficult to get any history out of her she is lethargic and nonverbal -We will cover for gram-negative pneumonia with cefepime and for MRSA pneumonia with IV vancomycin -Procalcitonin level is low suggesting this may be pneumonitis, although she is always at risk for aspiration gram-negative pneumonia given her swallowing dysfunction (3) Elevated troponin: Troponin mildly elevated upon admission Troponin may be elevated due to demand ischemia could be from brain injury no suspected acute coronary syndrome in this patient (4) Acute ischemic cerebrovascular accident (CVA) involving left middle cerebral artery territory: With recent large territory left MCA acute ischemic CVA last admission with resultant right-sided hemiparesis (although patient can grossly move right sided at this time) and right facial droop with expressive aphasia CT head here with evolving stroke in the same area Overall poor prognosis, this opinion of poor prognosis was transmitted to the family Patient with atrial fibrillation and refusal previously of anticoagulation puts her at increased risk for future strokes Patient is unable to take Plavix or a statin medication orally subsequently she will be changed to aspirin per rectum until swallowing improves (5) Combined systolic and diastolic heart failure: With chronic combined systolic and diastolic CHF with most recent EF being 20-25% as well as with RV dysfunction pt was given multiple doses of parenteral diuretics -Continue beta-alis heart rate is been elevated will change to more frequent IV dosing -Is not on an RIKKI inhibitor or ARB-blood pressures are elevated if not controlled by beta-alis may consider using enalapril AT intravenously (6) Atrial fibrillation: In atrial fibrillation here and has a known history of such with refusal of anticoagulation in the past -Given that she is n.p.o. not able to take pills, will convert her p.o. digoxin and metoprolol to IV forms -Monitor on telemetry, has had better rate control 03/22/20 (7) Hypertension: Blood pressures here are elevated -Will add on hydralazine as needed SBP greater than 180 given recent large stroke and possibility of hemorrhagic conversion, may consider using enalapril if scheduled antihypertensives are required. (8) Elevated bilirubin: Bilirubin is mildly elevated could be from gilberts disease (9) Venous stasis dermatitis of both lower extremities: Chronic Holding diuretics as above while n.p.o. No need for wound care evaluation at this time (10) Hypoxia: now worsened felt to be from pulmonary edema from heart failue, attempt to diurese and eval to taper NIPPV (11) DVT prophylaxis: SQ Lovenox Disposition-admit to medical floor with telemetry for acute metabolic encephalopathy, possible pneumonia and UTI in the setting of recent large acute CVA Eventually placement back at the [facility] when medically stable Palliative care consultation appreciated Remains a full code at this time, however has an extremely guarded and poor prognosis I spoke with multiple family members on 03/21 including her son her sister and her son's father. They were all made aware of the grave impairment this patient is undergone however are not willing to change her CODE STATUS or to withdraw care. Wishes to reevaluate on a daily basis. Admission and Anticipated Discharge Date Admission Date: March 20, 2020 Subjective Patient sustained a code purple last evening her rapid response for respiratory distress was felt to be in congestive heart failure from atrial fibrillation ventricular response. Patient was rescued with noninvasive positive pressure ventilation and diuresis. Patient upon my evaluation has right-sided neglect and would not respond to verbal commands although her eyes were open. She did guard her face when her hand was dropped towards it. The patient that was attempted to be weaned from CPAP to nasal cannula oxygen and she failed. Reportedly last evening during a rapid response her family was once again contacted by resident staff here and they continue to confirm that she wished to be full code. Overall outlook is guarded to poor especially since we are unable to de-escalate for noninvasive positive pressure ventilation. Review of Systems Review of Systems: Unobtainable due to cognitive status Physical Exam Physical Exam: The patient appeared awake but nonresponsive Vital signs as documented. Atrial fibrillation rate is much better controlled Head exam is normocephalic atraumatic no scleral icterus eyes are deviated to the left Neck is with JVD, trachea is midline Lungs are coarse breath sounds bilaterally decreased breath sounds at the bases Cardiac exam, irregularly irregular Abdominal exam reveals normal bowel sounds, soft non tender, no masses Extremities are bilateral pedal edema and chronic venous stasis changes Neurologic exam is awake but does not follow commands Results & Data Results & Data ([facility]) Vital Signs (Past 12 Hours) Vital Signs Temp Pulse Pulse Pulse Resp BP BP 03/22/20 06:06 60 18 143/96 H 03/22/20 05:37 113 H 26 H 03/22/20 05:24 74 155/94 H 03/22/20 04:55 111 H 03/22/20 04:51 111 H 168/111 H 03/22/20 04:09 150 H 03/22/20 03:21 97.9 F 97 H 32 H 191/99 H 03/22/20 03:12 74 157/97 H 03/22/20 01:04 120 H 171/111 H 03/21/20 23:25 97.9 F 85 34 H 175/107 H 03/21/20 22:39 65 34 H 150/92 H 03/21/20 22:19 71 163/94 H 03/21/20 21:03 101 H 03/21/20 20:47 144 H 175/136 H 03/21/20 20:15 98.1 F 88 42 H 177/102 H Pulse Ox 03/22/20 06:06 100 03/22/20 05:37 99 03/22/20 05:24 94 03/22/20 04:55 03/22/20 04:51 03/22/20 04:09 03/22/20 03:21 97 03/22/20 03:12 93 03/22/20 01:04 03/21/20 23:25 97 03/21/20 22:39 97 03/21/20 22:19 03/21/20 21:03 03/21/20 20:47 03/21/20 20:15 96 PG Care Time/CCT Total # of Minutes Spent Total Time Spent with Patient: Total time spent is greater than 50% in coordination of care (as documented) at patient's floor/unit and/or counseling patient: Coding Level of Care Code 47655 Subseq Hosp Care Lvl 3 Diagnoses Acute metabolic encephalopathy G93.41 Pneumonia J18.9 Elevated troponin R79.89 Acute ischemic cerebrovascular accident (CVA) involving left middle cerebral artery territory I63.512 Combined systolic and diastolic heart failure I50.40 Atrial fibrillation I48.91 Hypertension I10 Elevated bilirubin R17 Venous stasis dermatitis of both lower extremities I87.2 Hypoxia R09.02 DVT prophylaxis Z29.9
[2020-03-22] MEDS: ASPIRIN 300 MG SUPP PR SCH (10:00)
[2020-03-22] MEDS ORDERED: FUROSEMIDE 40 MG in SYRINGE 0 ML IV ONE (11:15)
[2020-03-22] MEDS ORDERED: VANCOMYCIN TROUGH ONE (11:30)
[2020-03-22] MEDS: DIGOXIN 125 MCG in SYRINGE 9.5 ML IV SCH (15:54)
[2020-03-22] MEDS: ENOXAPARIN INJ 40 MG/0.4 ML SYR SQ SCH (15:54)
[2020-03-22] MEDS: ENALAPRILAT 0.625 MG in SYRINGE 9.5 ML IV SCH (18:59)
[2020-03-23] MEDS: ENALAPRILAT 0.625 MG in SYRINGE 9.5 ML IV SCH ×3 (03:27→21:13)
[2020-03-23] MEDS: METOPROLOL TARTRATE 1 MG/ML VIAL IV SCH ×2 (03:29→05:29)
--- NOTE | 2020-03-23 08:28 | Hospitalist Progress Note ---
Date of Service March 23, 2020 Assessment & Plan (1) Acute metabolic encephalopathy: Acute metabolic encephalopathy, contributed to by possible aspiration or gram negative pneumonia in the setting of recent large left MCA territory ischemic CVA that is progressively evolving on head CT here on admission. AMS and unresponsiveness due to sequelae of recent cerebral infarction The pt's outlook is guarded with dependence on NIPPV, influenced by acute on chonic systolic heart failure and also acute on chronic diastolic heart failure worsened by Afib RVR due to inability to take oral medicines. Patient continues to have unsafe swallowing evaluations if not improving will consider peripheral or central jesus or coresafe feeding According to family continue wishes for full support and full code we will continue intravenous fluids at this time. Overall outlook is extremely guarded and family was made aware of this opinion, Pts local son, Corby, did visit the pt 03/23/20 -Given multiple recent admissions and very poor overall prognosis, will consult palliative care medicine again to help facilitate goals of care discussion with the patient and/or her family members as they are quite familiar with our palliative care team at this point (2) Pneumonia: With possible left lower lobe infiltrate seen on chest x-ray though not typical location may be concern for aspiration given her marked swallowing impairment She has not required any more oxygen than her normal 3 L, difficult to get any history out of her she is lethargic and nonverbal -We will cover for gram-negative pneumonia with rocephin to complete 7 days total (3) Elevated troponin: Troponin mildly elevated upon admission Troponin may be elevated due to demand ischemia could be from brain injury no suspected acute coronary syndrome in this patient (4) Acute ischemic cerebrovascular accident (CVA) involving left middle cerebral artery territory: With recent large territory left MCA acute ischemic CVA last admission with resultant right-sided hemiparesis (although patient can grossly move right sided at this time) and right facial droop with expressive aphasia CT head here with evolving stroke in the same area Overall poor prognosis, this opinion of poor prognosis was transmitted to the family Patient with atrial fibrillation and refusal previously of anticoagulation puts her at increased risk for future strokes Patient is unable to take Plavix or a statin medication orally subsequently she will be changed to aspirin per rectum until swallowing improves or we secure alternate oral technique (5) Combined systolic and diastolic heart failure: With chronic combined systolic and diastolic CHF with most recent EF being 20-25% as well as with RV dysfunction pt was given multiple doses of parenteral diuretics -Continue beta-alis heart rate is been elevated will change to more frequent IV dosing -Is not on an RIKKI inhibitor or ARB-blood pressures are elevated if not controlled by beta-alis may consider using enalapril AT intravenously (6) Atrial fibrillation: In atrial fibrillation here and has a known history of such with refusal of anticoagulation in the past -Given that she is n.p.o. not able to take pills, will convert her p.o. digoxin and metoprolol to IV forms -slower rates and some VT, will reduce metoprolol to prn only and check digoxin level (7) Hypertension: Blood pressures here are elevated, adding enalapril iv to assist with control as high pressures places undue stress on heart and heart failure (8) Elevated bilirubin: Bilirubin is mildly elevated could be from gilberts disease (9) Venous stasis dermatitis of both lower extremities: Chronic Holding diuretics as above while n.p.o. No need for wound care evaluation at this time (10) Hypoxia: improved with diuresis, now back to 3 L nc (11) DVT prophylaxis: Lovex Palliative care consultation appreciated Remains a full code at this time, however has an extremely guarded and poor prognosis I spoke with multiple family members on 03/21, 03/22, and 03/23 including her son her sister and her son's father. They were all made aware of the grave impairment this patient is undergone however are not willing to change her CODE STATUS or to withdraw care. Wishes to reevaluate on a daily basis. Admission and Anticipated Discharge Date Admission Date: March 20, 2020 Subjective this pt is still without safe swallowing , maybe slightly more arousible and may be mumbling yes at times but not purposeful Review of Systems Review of Systems: Unobtainable due to cognitive status Physical Exam Physical Exam: The patient appeared awake but nonresponsive Vital signs as documented. now having episodes of braycardia and some VT Head exam is normocephalic atraumatic no scleral icterus eyes are deviated to the left Neck is with JVD, trachea is midline Lungs remain coarse breath sounds bilaterally decreased breath sounds at the bases Cardiac exam, irregularly irregular, bradycardic Abdominal exam reveals normal bowel sounds, soft non tender, no masses Extremities are bilateral pedal edema and chronic venous stasis changes Neurologic exam is awake but does not follow commands Results & Data Results & Data ([facility]) Vital Signs (Past 12 Hours) Vital Signs Temp Pulse Pulse Resp BP Pulse Ox 03/23/20 08:03 97.5 F L 69 20 154/78 H 94 03/23/20 05:57 42 L 22 173/82 H 100 03/23/20 05:29 47 L 03/23/20 03:29 40 L 03/23/20 03:22 52 L 20 96 03/23/20 03:07 97.7 F 55 L 21 164/86 H 95 03/22/20 23:27 98.6 F 56 L 17 170/82 H 100 03/22/20 21:03 147 H 38 H 99 03/22/20 20:53 152 H PG Care Time/CCT Total # of Minutes Spent Total Time Spent with Patient: Total time spent is greater than 50% in coordination of care (as documented) at patient's floor/unit and/or counseling patient: Coding Level of Care Code 75715 Subseq Hosp Care Lvl 3 Diagnoses Acute metabolic encephalopathy G93.41 Pneumonia J18.9 Elevated troponin R79.89 Acute ischemic cerebrovascular accident (CVA) involving left middle cerebral artery territory I63.512 Combined systolic and diastolic heart failure I50.40 Atrial fibrillation I48.91 Hypertension I10 Elevated bilirubin R17 Venous stasis dermatitis of both lower extremities I87.2 Hypoxia R09.02 DVT prophylaxis Z29.9
[2020-03-23 08:40] LABS: Creatinine Clr Calc Pharmacy 65.1 ml/min; Est GFR (African American) 90.8; Est GFR (Non-African American) 78.4
[2020-03-23] MEDS: CEFEPIME 2,000 MG in SYRINGE 0 ML IV SCH (08:53)
[2020-03-23] MEDS: ASPIRIN 300 MG SUPP PR SCH (10:13)
[2020-03-23] MEDS: cefTRIAXone SODIUM 2,000 MG in DEXTROSE 5% 50 ML IV SCH (10:13)
[2020-03-23] MEDS ORDERED: METOPROLOL TARTRATE 1 MG/ML VIAL IV SCH (12:00)
--- NOTE | 2020-03-23 12:30 | Electrocardiogram Report ---
Test Reason : Blood Pressure : / mmHG Vent. Rate : 132 BPM Atrial Rate : 163 BPM P-R Int : 000 ms QRS Dur : 088 ms QT Int : 328 ms P-R-T Axes : 000 -03 127 degrees QTc Int : 485 ms Poor data quality, interpretation may be adversely affected Atrial fibrillation with rapid ventricular response Nonspecific T wave abnormality Abnormal ECG When compared with ECG of 20-MAR-2020 09:11, Vent. rate has increased BY 74 BPM Confirmed by Neal Dunn ([id number]) on 03/23/2020 12:30:29 PM Referred By: Bebo Heartmike Confirmed By:Neal Dunn
--- NOTE | 2020-03-23 14:06 | Palliative Care Progress Note ---
Date of Service March 23, 2020 Assessment & Plan (1) Goals of care, counseling/discussion: -Pt is a 70 year old female patient with PMH HTN, A fib with RVR, severe LV dysfunction with EF 20-25% on echo this February, RV dysfunction, visual impairment, hyperlipidemia, inoperable left hip fracture in Oct of this year and venous stasis ulcers, was just discharged on 03/18 after suffering a right CVA on 03/14. Staff at the facility called 911 the a.m. of 03/20 when patient was found to be unresponsive. CT scan showed a large, evolving left MCA infarct. Patient had right-sided hemiparesis and expressive aphasia during her last admission-these were improving. Patient returned to the [facility] for rehab on 03/18. Patient continued to refuse anticoagulation for her A. fib, she did agree to switch from aspirin to Plavix and start a low-dose statin. Her A. fib was controlled with digoxin and metoprolol. Palliative care is consulted to discuss goals of care with family. Patient did have increased respiratory distress on 03/21-requiring BiPAP, family contacted again regarding CODE STATUS-they continue to wish her to be a full code. -Patient is well-known to palliative service as we have been consulted on her many times, including her last admission. -Patient has been living at the [facility] since her hospitalization with the hip fracture this past October. Patient is a unique individual with very non- conventional approach to her health care. Patient known to refuse meds at [facility]-refused AC during her last admission, did agree to switching from ASA to Plavix and starting low-dose statin last admission. -On several previous admissions, patient has stated that she would want her son Genesis to be main contact/decision maker, but she refused to do any POA paperwork. She has a son Nahun who she also trusts. she did not want her two local daughters and son to make decisions for her. She has a total of 8 children. -For now, continue with current supportive care. We will continue to follow and engage with family regarding goals of care as her condition changes.. (2) Acute ischemic cerebrovascular accident (CVA) involving left middle cerebral artery territory: (3) Hemiparesis: (4) Expressive aphasia: (5) Atrial fibrillation with rapid ventricular response: (6) Edema: Subjective Patient did open her eyes to verbal stim on exam today, patient is unable to speak, did nod yes to most questions, not sure patient understands. Unable to follow simple commands. Patient with increased weakness on the left upper extremity, right is flaccid. Review of Systems Review of Systems: Unobtainable due to cognitive status Physical Exam Physical Exam: PE: Patient appears comfortable HEENT: EOMI, appears to hear Respirations: Unlabored, on O2 via nasal cannula at 2 L, poor inspiratory effort CV: Regular rate, decreased lower extremity edema Abdomen: Soft, no grimace on palpation Neuro: Increased deficits from prior admission-patient nonverbal, unable to follow simple commands. Results & Data Vital Signs (Past 12 Hours) Vital Signs Temp Pulse Pulse Resp BP Pulse Ox 03/23/20 12:09 97.5 F L 64 18 167/79 H 97 03/23/20 11:46 49 L 03/23/20 09:15 56 L 03/23/20 08:03 97.5 F L 69 20 154/78 H 94 03/23/20 05:57 42 L 22 173/82 H 100 03/23/20 05:29 47 L 03/23/20 03:29 40 L 03/23/20 03:22 52 L 20 96 03/23/20 03:07 97.7 F 55 L 21 164/86 H 95 PG Care Time/CCT Total # of Minutes Spent Total Time Spent with Patient: Total time spent 25 minutes with greater than 50% of the time at bedside assessing patient's current status and collaborating with attending physician. Coding Level of Care Code 15976 Subseq Hosp Care Lvl 2 Diagnoses Goals of care, counseling/discussion Z71.89 Acute ischemic cerebrovascular accident (CVA) involving left middle cerebral artery territory I63.512 Hemiparesis G81.90 Expressive aphasia R47.01 Atrial fibrillation with rapid ventricular response I48.91 Edema R60.9 Edema type: unspecified Time Spent (min) 25 (1) Edema Edema type: unspecified Qualified Code(s): R60.9 - Edema, unspecified
[2020-03-23] MEDS: DIGOXIN 125 MCG in SYRINGE 9.5 ML IV SCH (16:21)
[2020-03-23] MEDS: ENOXAPARIN INJ 40 MG/0.4 ML SYR SQ SCH (16:21)
[2020-03-23] MEDS ORDERED: SODIUM CHLORIDE 0.9% 500 ML IV SCH (18:15)
[2020-03-23 19:58] LABS: BUN Creatinine Ratio 17.9 (10-20); Calcium 9.3 mg/dl (8.5-10.1); Creatinine Clr Calc Pharmacy 73.8 ml/min; Est GFR (African American) 101.8; Est GFR (Non-African American) 87.8; Magnesium 2.1 mg/dl (1.8-2.4); Potassium 3.2 mmol/L (3.5-5.1)
[2020-03-23 20:09] LABS: Phosphorus 1.4 mg/dl (2.5-4.9)
[2020-03-23] MEDS ORDERED: POTASSIUM PHOS 3 MMOL/1 ML INFUSION IV STA (20:35)
[2020-03-23] MEDS ORDERED: POTASSIUM PHOSPHATE 24 MMOL in SODIUM CHLORIDE 0.9% 500 ML IV ONE (21:00)
[2020-03-24] MEDS: ENALAPRILAT 0.625 MG in SYRINGE 9.5 ML IV SCH ×3 (03:03→18:21)
[2020-03-24] MEDS ORDERED: POTASSIUM CHLORIDE / WTR 10 MEQ/100 ML PLCT IV ONE (05:15)
[2020-03-24 07:06] LABS: BUN Creatinine Ratio 19.5 (10-20); Calcium 8.8 mg/dl (8.5-10.1); Creatinine Clr Calc Pharmacy 91.6 ml/min; Est GFR (African American) 109.3; Est GFR (Non-African American) 94.3; Magnesium 1.9 mg/dl (1.8-2.4); Potassium 3.3 mmol/L (3.5-5.1)
[2020-03-24] MEDS ORDERED: POTASSIUM CHLORIDE 10 MEQ / 100ML WTR IV STA (08:24)
[2020-03-24] MEDS: POTASSIUM CHLORIDE / WTR 10 MEQ/100 ML PLCT IV SCH ×3 (09:00→11:44)
[2020-03-24] MEDS ORDERED: MAGNESIUM SULFATE / D5W 1 GM/100 ML BAG IV ONE (09:00)
[2020-03-24] MEDS: METOPROLOL TARTRATE 1 MG/ML VIAL IV PRN ×2 (09:09→15:57)
[2020-03-24] MEDS: cefTRIAXone SODIUM 2,000 MG in DEXTROSE 5% 50 ML IV SCH (09:30)
[2020-03-24] MEDS: ASPIRIN 300 MG SUPP PR SCH (09:30)
--- NOTE | 2020-03-24 10:21 | XRay Report ---
XR KUB/Abdomen 1 view CLINICAL HISTORY: Check tube placement COMPARISON STUDY: No previous studies for comparison. FINDINGS: Feeding tube placed in the mid stomach IMPRESSION: Feeding tube placed in the mid stomach. Nonobstructive bowel pattern. ACT 112: Negative or not required by law. The above report was generated using voice recognition software. It may contain grammatical, syntax or spelling errors. Electronically signed by: Zackery Love M.D. 03/24/2020 10:20 AM
[2020-03-24] MEDS: FIBERSOURCE HN 1.2 CAL 1000 ML BAG NG SCH (12:29)
--- NOTE | 2020-03-24 15:02 | Palliative Care Progress Note ---
Date of Service March 24, 2020 Assessment & Plan (1) Goals of care, counseling/discussion: -Pt is a 70 year old female patient with PMH HTN, A fib with RVR, severe LV dysfunction with EF 20-25% on echo this February, RV dysfunction, visual impairment, hyperlipidemia, inoperable left hip fracture in Oct of this year and venous stasis ulcers, was just discharged on 03/18 after suffering a right CVA on 03/14. Staff at the facility called 911 the a.m. of 03/20 when patient was found to be unresponsive. CT scan showed a large, evolving left MCA infarct. Patient had right-sided hemiparesis and expressive aphasia during her last admission-these were improving. Patient returned to the [facility] for rehab on 03/18. Patient continued to refuse anticoagulation for her A. fib, she did agree to switch from aspirin to Plavix and start a low-dose statin. Her A. fib was controlled with digoxin and metoprolol. Palliative care is consulted to discuss goals of care with family. Patient did have increased respiratory distress on 03/21-requiring BiPAP, family contacted again regarding CODE STATUS-they continue to wish her to be a full code. -Patient is well-known to palliative service as we have been consulted on her many times, including her last admission. -Patient has been living at the [facility] since her hospitalization with the hip fracture this past October. Patient is a unique individual with very non- conventional approach to her health care. Patient known to refuse meds at [facility]-refused AC during her last admission, did agree to switching from ASA to Plavix and starting low-dose statin last admission. -On several previous admissions, patient has stated that she would want her son Genesis to be main contact/decision maker, but she refused to do any POA paperwork. She has a son Nahun who she also trusts. she did not want her two local daughters and son to make decisions for her. She has a total of 8 children. -Patient improving, receiving NG feedings-we will continue to follow and assist patient and family with medical decision making. (2) Acute ischemic cerebrovascular accident (CVA) involving left middle cerebral artery territory: (3) Hemiparesis: (4) Expressive aphasia: (5) Atrial fibrillation with rapid ventricular response: (6) Edema: Subjective Patient seen and examined this afternoon, patient more alert, nodding yes or no more consistently to questions. Currently receiving NG feeds. Patient also moving both upper extremities purposefully and on command, able to wiggle toes bilaterally. Patient did indicate that she would want a PEG tube if needed. Patient continues to be nonverbal Review of Systems Review of Systems: Unobtainable due to cognitive status Physical Exam Physical Exam: PE: Patient more awake, able to nod yes or no to a few simple questions HEENT: EOMI, hearing appears to be within normal limits Respirations unlabored CV: Regular rate, decreased lower extremity edema Neuro: Improving-moving upper extremities on command, nonverbal Results & Data Vital Signs (Past 12 Hours) Vital Signs Temp Pulse Pulse Resp BP BP BP 03/24/20 12:12 97.2 F L 86 19 158/104 H 03/24/20 12:00 74 03/24/20 09:09 152 H 154/94 H 03/24/20 08:06 97.7 F 86 19 163/88 H 03/24/20 04:43 97.3 F L 111 H 20 145/94 H Pulse Ox 03/24/20 12:12 98 03/24/20 12:00 03/24/20 09:09 03/24/20 08:06 98 03/24/20 04:43 98 PG Care Time/CCT Total # of Minutes Spent Total Time Spent with Patient: Total time spent 25 minutes with greater than 50% of the time spent at bedside assessing patient's current functional status and goals of care. Coding Level of Care Code 93671 Subseq Hosp Care Lvl 2 Diagnoses Goals of care, counseling/discussion Z71.89 Acute ischemic cerebrovascular accident (CVA) involving left middle cerebral artery territory I63.512 Hemiparesis G81.90 Expressive aphasia R47.01 Atrial fibrillation with rapid ventricular response I48.91 Edema R60.9 Edema type: unspecified Time Spent (min) 25 (1) Edema Edema type: unspecified Qualified Code(s): R60.9 - Edema, unspecified
[2020-03-24] MEDS: DIGOXIN 125 MCG in SYRINGE 9.5 ML IV SCH (15:29)
[2020-03-24] MEDS: ENOXAPARIN INJ 40 MG/0.4 ML SYR SQ SCH (15:29)
--- NOTE | 2020-03-24 17:07 | Hospitalist Progress Note ---
Date of Service March 24, 2020 Assessment & Plan (1) Acute metabolic encephalopathy: Acute metabolic encephalopathy, contributed to by possible aspiration or gram negative pneumonia in the setting of recent large left MCA territory ischemic CVA that is progressively evolving on head CT here on admission. AMS and unresponsiveness due to sequelae of recent cerebral infarction The pt's outlook is improved, now back to [place] oxygen but still with variable heart rate control Patient continues to have unsafe swallowing evaluations added coresafe feeding 03/24 According to family continue wishes for full support and full code we will continue intravenous fluids at this time. Overall outlook is extremely guarded and family was made aware of this opinion, Pts local son, Corby, did visit the pt 03/23/20 -Given multiple recent admissions and very poor overall prognosis, will consult palliative care medicine again to help facilitate goals of care discussion with the patient and/or her family members as they are quite familiar with our palliative care team at this point, family is fairly certain they wish for full support and full code (2) Pneumonia: With possible left lower lobe infiltrate seen on chest x-ray though not typical location may be concern for aspiration given her marked swallowing impairment She has not required any more oxygen than her normal 3 L, difficult to get any history out of her she is lethargic and nonverbal -We will cover for gram-negative pneumonia with rocephin to complete 7 days total (3) Elevated troponin: Troponin mildly elevated upon admission Troponin may be elevated due to demand ischemia could be from brain injury no suspected acute coronary syndrome in this patient (4) Acute ischemic cerebrovascular accident (CVA) involving left middle cerebral artery territory: With recent large territory left MCA acute ischemic CVA last admission with resultant right-sided hemiparesis (although patient can grossly move right sided at this time) and right facial droop with expressive aphasia CT head here with evolving stroke in the same area once core safe is placed will transition to po aspirin and plavix (5) Combined systolic and diastolic heart failure: With chronic combined systolic and diastolic CHF with most recent EF being 20-25% as well as with RV dysfunction pt was given multiple doses of parenteral diuretics -Continue beta-alis heart rate is been elevated will change to tartrate via ngt and iv meds prn - using enalapril AT intravenously (6) Atrial fibrillation: In atrial fibrillation here and has a known history of such with refusal of anticoagulation in the past -Given that she is n.p.o. not able to take pills, will convert her p.o. digoxin to IV forms -slower rates and some VT, will reduce metoprolol to prn only and check digoxin level (7) Hypertension: Blood pressures here are elevated, adding enalapril iv to assist with control as high pressures places undue stress on heart and heart failure (8) Elevated bilirubin: Bilirubin is mildly elevated could be from gilberts disease (9) Venous stasis dermatitis of both lower extremities: Chronic Holding diuretics as above while n.p.o. No need for wound care evaluation at this time (10) Hypoxia: improved with diuresis, now back to 3 L nc (11) DVT prophylaxis: Lovenox Palliative care consultation appreciated Remains a full code at this time, however has an extremely guarded and poor prognosis I spoke with multiple family members on 03/21, 03/22, and 03/23 03/24 including her son her sister and her son's father. They were all made aware of the grave impairment this patient is undergone however are not willing to change her CODE STATUS or to withdraw care. Wishes to reevaluate on a daily basis. Admission and Anticipated Discharge Date Admission Date: March 20, 2020 Subjective this pt is still without safe swallowing , much more alert today, grabbing my hand and even has some movement on right side Review of Systems Review of Systems: Unobtainable due to cognitive status Physical Exam Physical Exam: The patient appeared awake does take some directions, sitting up supporting trunk Vital signs as documented. now having episodes of tachycardia will restart metoprolol Head exam is normocephalic atraumatic no scleral icterus Neck is with JVD, trachea is midline Lungs remain coarse breath sounds bilaterally decreased breath sounds at the bases Cardiac exam, irregularly irregular, variable heart rate control Abdominal exam reveals normal bowel sounds, soft non tender, no masses Extremities are bilateral pedal edema and chronic venous stasis changes Neurologic exam is awake and does follow some commads Results & Data Results & Data ([facility]) Vital Signs (Past 12 Hours) Vital Signs Temp Pulse Pulse Resp BP BP BP 03/24/20 15:57 132 H 178/116 H 03/24/20 15:44 98.4 F 132 H 23 178/116 H 03/24/20 15:29 164 H 03/24/20 12:12 97.2 F L 86 19 158/104 H 03/24/20 12:00 74 03/24/20 09:09 152 H 154/94 H 03/24/20 08:06 97.7 F 86 19 163/88 H Pulse Ox 03/24/20 15:57 03/24/20 15:44 95 03/24/20 15:29 03/24/20 12:12 98 03/24/20 12:00 03/24/20 09:09 03/24/20 08:06 98 PG Care Time/CCT Total # of Minutes Spent Total Time Spent with Patient: Total time spent is greater than 50% in coordination of care (as documented) at patient's floor/unit and/or counseling patient: Coding Level of Care Code 72792 Subseq Hosp Care Lvl 3 Diagnoses Acute metabolic encephalopathy G93.41 Pneumonia J18.9 Elevated troponin R79.89 Acute ischemic cerebrovascular accident (CVA) involving left middle cerebral artery territory I63.512 Combined systolic and diastolic heart failure I50.40 Atrial fibrillation I48.91 Hypertension I10 Elevated bilirubin R17 Venous stasis dermatitis of both lower extremities I87.2 Hypoxia R09.02 DVT prophylaxis Z29.9
[2020-03-24] MEDS ORDERED: METOPROLOL TARTRATE 25 MG TAB PO ONE (17:15)
[2020-03-24] MEDS ORDERED: METOPROLOL TARTRATE 25 MG TAB PO SCH (21:00)
[2020-03-25] MEDS: ENALAPRILAT 0.625 MG in SYRINGE 9.5 ML IV SCH (02:42)
--- NOTE | 2020-03-25 07:22 | Hospitalist Progress Note ---
Date of Service March 25, 2020 Assessment & Plan (1) Acute metabolic encephalopathy: Acute metabolic encephalopathy, contributed to by possible aspiration or gram negative pneumonia in the setting of recent large left MCA territory ischemic CVA that is progressively evolving on head CT here on admission. AMS and unresponsiveness due to sequelae of recent cerebral infarction The pt's outlook is improved, now back to [place] oxygen but still with variable heart rate control Patient continues to have unsafe swallowing evaluations added coresafe feeding 03/24 with tolerance of escalation of feeding According to family continue wishes for full support and full code Pts local son, Corby, natanael visit the pt 03/23/20 will ask speech therapy to re see this week and if improves may consider oral feeding trial if fails will discuss with GI med -Given multiple recent admissions and very poor overall prognosis, will consult palliative care medicine again to help facilitate goals of care discussion with the patient and/or her family members as they are quite familiar with our palliative care team at this point, family is fairly certain they wish for full support and full code (2) Pneumonia: With possible left lower lobe infiltrate seen on chest x-ray though not typical location may be concern for aspiration given her marked swallowing impairment She has not required any more oxygen than her normal 3 L, difficult to get any history out of her she is lethargic and nonverbal -We will cover for gram-negative pneumonia with rocephin to complete 7 days total last dose 03/27/20 (3) Elevated troponin: Troponin mildly elevated upon admission Troponin may be elevated due to demand ischemia could be from brain injury no suspected acute coronary syndrome in this patient (4) Acute ischemic cerebrovascular accident (CVA) involving left middle cerebral artery territory: With recent large territory left MCA acute ischemic CVA last admission with resultant right-sided hemiparesis (although patient can grossly move right sided at this time) and right facial droop with expressive aphasia CT head here with evolving stroke in the same area transition to po aspirin and plavix via core safe (5) Combined systolic and diastolic heart failure: With chronic combined systolic and diastolic CHF with most recent EF being 20-25% as well as with RV dysfunction pt was given multiple doses of parenteral diuretics -Continue beta-alis tartrate and lisinopril via ngt and iv meds prn (6) Atrial fibrillation: In atrial fibrillation here and has a known history of such with refusal of anticoagulation in the past -rate controlled with metoprolol tartrate and digoxin (7) Hypertension: Blood pressures here are elevated, adding enalapril iv to assist with control as high pressures places undue stress on heart and heart failure (8) Elevated bilirubin: Bilirubin is mildly elevated could be from gilberts disease (9) Venous stasis dermatitis of both lower extremities: Chronic Holding diuretics No need for wound care evaluation at this time (10) Hypoxia: improved with diuresis, now back to 3 L nc no longer on diuretics (11) DVT prophylaxis: Lovex Palliative care consultation appreciated Remains a full code at this time, however has an extremely guarded and poor prognosis I spoke with multiple family members on 03/21, 03/22, and 03/23 03/24 including her son her sister and her son's father. They were all made aware of the grave impairment this patient is undergone however are not willing to change her CODE STATUS or to withdraw care. Wishes to reevaluate on a daily basis. Admission and Anticipated Discharge Date Admission Date: March 20, 2020 Subjective this pt is still without safe swallowing , much more alert today, grabbing my hand and even has some movement on right side Physical Exam Physical Exam: The patient appeared awake does take some directions, sitting up supporting trunk Vital signs as documented. now having episodes of tachycardia will restart metoprolol Head exam is normocephalic atraumatic no scleral icterus Neck is with JVD, trachea is midline Lungs remain coarse breath sounds bilaterally decreased breath sounds at the bases Cardiac exam, irregularly irregular, variable heart rate control Abdominal exam reveals normal bowel sounds, soft non tender, no masses Extremities are bilateral pedal edema and chronic venous stasis changes Neurologic exam is awake and does follow some commads Results & Data Results & Data ([facility]) Vital Signs (Past 12 Hours) Vital Signs Temp Pulse Pulse Resp BP Pulse Ox 03/25/20 03:43 97.7 F 83 26 H 172/89 H 95 03/25/20 00:08 89 03/24/20 23:32 97.9 F 92 H 20 151/119 H 94 PG Care Time/CCT Total # of Minutes Spent Total Time Spent with Patient: Total time spent is greater than 50% [facility] (as documented) at patient's floor/unit and/or counseling patient: Coding Level of Care Code 81503 Subseq Hosp Care Lvl 3 Diagnoses Acute metabolic encephalopathy G93.41 Pneumonia J18.9 Elevated troponin R79.89 Acute ischemic cerebrovascular accident (CVA) involving left middle cerebral artery territory I63.512 Combined systolic and diastolic heart failure I50.40 Atrial fibrillation I48.91 Hypertension I10 Elevated bilirubin R17 Venous stasis dermatitis of both lower extremities I87.2 Hypoxia R09.02 DVT prophylaxis Z29.9
[2020-03-25] MEDS: ASPIRIN 81 MG CHEW NG SCH (08:49)
[2020-03-25] MEDS: cefTRIAXone SODIUM 2,000 MG in DEXTROSE 5% 50 ML IV SCH (08:49)
[2020-03-25] MEDS: METOPROLOL TARTRATE 25 MG TAB PO SCH ×2 (08:49→21:23)
[2020-03-25] MEDS: lisinopriL 5 MG TAB PO SCH (08:49)
[2020-03-25] MEDS: CLOPIDOGREL BISULFATE 75 MG TAB PEG SCH (08:50)
[2020-03-25 09:13] LABS: Hematocrit (blood only) 39.8 % (37-47); Hemoglobin 13.1 g/dL (12.0-16.0); Mean Corpuscular Hemoglobin 31.6 pg (25-34); Mean Corpuscular Hgb Conc 32.9 g/dL (32-36); Mean Corpuscular Volume 96.1 fL (80-100); Platelet Count 273 K/uL (130-400); RDW Coefficient of Variation 13.4 % (11.5-14.5); RDW Standard Deviation 46.9 fL (36.4-46.3); Red Blood Count 4.14 M/uL (4.2-5.4); White Blood Count 8.66 K/uL (4.8-10.8)
[2020-03-25 09:45] LABS: Albumin Level 3.1 gm/dl (3.4-5.0); BUN Creatinine Ratio 19.2 (10-20); Bilirubin Direct 0.6 mg/dl (0-0.2); Calcium 9.4 mg/dl (8.5-10.1); Creatinine Clr Calc Pharmacy 66.8 ml/min; Est GFR (African American) 93.8; Est GFR (Non-African American) 80.9; Magnesium 2.3 mg/dl (1.8-2.4); Potassium 3.6 mmol/L (3.5-5.1)
[2020-03-25 09:48] LABS: Albumin Globulin Ratio 0.8 (0.9-2); Bilirubin,Total 1.7 mg/dl (0.2-1); Globulin 3.9 gm/dl (2.5-4.0)
[2020-03-25] MEDS: FIBERSOURCE HN 1.2 CAL 1000 ML BAG NG SCH (14:54)
[2020-03-25] MEDS: ENOXAPARIN INJ 40 MG/0.4 ML SYR SQ SCH (15:00)
[2020-03-25] MEDS: DIGOXIN 0.125 MG/2.5 ML UDP NG SCH (15:01)
[2020-03-26 07:25] LABS: Albumin Globulin Ratio 0.8 (0.9-2); Albumin Level 2.8 gm/dl (3.4-5.0); BUN Creatinine Ratio 21.7 (10-20); Bilirubin Direct 0.4 mg/dl (0-0.2); Calcium 8.9 mg/dl (8.5-10.1); Creatinine Clr Calc Pharmacy 65.9 ml/min; Est GFR (African American) 92.3; Est GFR (Non-African American) 79.6; Globulin 3.5 gm/dl (2.5-4.0); Magnesium 2.1 mg/dl (1.8-2.4); Potassium 3.4 mmol/L (3.5-5.1); Total Protein 6.3 gm/dl (6.4-8.2)
[2020-03-26] MEDS ORDERED: POTASSIUM CHLORIDE 10 MEQ / 100ML WTR IV STA (09:11)
[2020-03-26] MEDS: FIBERSOURCE HN 1.2 CAL 1000 ML BAG NG SCH (09:40)
[2020-03-26] MEDS: POTASSIUM CHLORIDE / WTR 10 MEQ/100 ML PLCT IV SCH ×3 (09:41→12:20)
[2020-03-26] MEDS: lisinopriL 5 MG TAB PO SCH (09:41)
[2020-03-26] MEDS: CLOPIDOGREL BISULFATE 75 MG TAB PEG SCH (09:41)
[2020-03-26] MEDS: METOPROLOL TARTRATE 25 MG TAB PO SCH ×2 (09:41→21:28)
[2020-03-26] MEDS: ASPIRIN 81 MG CHEW NG SCH (09:41)
[2020-03-26] MEDS: cefTRIAXone SODIUM 2,000 MG in DEXTROSE 5% 50 ML IV SCH (09:54)
--- NOTE | 2020-03-26 13:46 | Hospitalist Progress Note ---
Date of Service March 26, 2020 Assessment & Plan (1) Acute metabolic encephalopathy: Acute metabolic encephalopathy, contributed to by possible aspiration or gram negative pneumonia in the setting of recent large left MCA territory ischemic CVA that is progressively evolving on head CT here on admission. AMS and unresponsiveness due to sequelae of recent cerebral infarction The pt's outlook is improved, now back to [place] oxygen but still with variable heart rate control Patient continues to have unsafe swallowing evaluations added coresafe feeding 03/24 with tolerance of escalation of feeding According to family continue wishes for full support and full code Pts local son, Corby, natanael visit the pt 03/23/20 will ask speech therapy to re see this week and if improves may consider oral feeding trial if fails will discuss with GI med -Given multiple recent admissions and very poor overall prognosis, will consult palliative care medicine again to help facilitate goals of care discussion with the patient and/or her family members as they are quite familiar with our palliative care team at this point, family is fairly certain they wish for full support and full code (2) Pneumonia: With possible left lower lobe infiltrate seen on chest x-ray though not typical location may be concern for aspiration given her marked swallowing impairment She has not required any more oxygen than her normal 3 L, difficult to get any history out of her she is lethargic and nonverbal -We will cover for gram-negative pneumonia with rocephin to complete 7 days total last dose 03/27/20 (3) Elevated troponin: Troponin mildly elevated upon admission Troponin may be elevated due to demand ischemia could be from brain injury no suspected acute coronary syndrome in this patient (4) Acute ischemic cerebrovascular accident (CVA) involving left middle cerebral artery territory: With recent large territory left MCA acute ischemic CVA last admission with resultant right-sided hemiparesis (although patient can grossly move right sided at this time) and right facial droop with expressive aphasia CT head here with evolving stroke in the same area transition to po aspirin and plavix via core safe (5) Combined systolic and diastolic heart failure: With chronic combined systolic and diastolic CHF with most recent EF being 20-25% as well as with RV dysfunction pt was given multiple doses of parenteral diuretics -Continue beta-alis tartrate and lisinopril via ngt and iv meds prn (6) Closed left hip fracture: pt had a closed hip fracture, previously deemed non operative by Dr Razo in december and feels that she would not be a good operative candidate, will have pain control and care with movement, has prn pain medication ordered (7) Atrial fibrillation: In atrial fibrillation here and has a known history of such with refusal of anticoagulation in the past -rate controlled with metoprolol tartrate and digoxin (8) Hypertension: Blood pressures here are elevated, adding enalapril iv to assist with control as high pressures places undue stress on heart and heart failure (9) Elevated bilirubin: Bilirubin is mildly elevated could be from gilberts disease (10) Venous stasis dermatitis of both lower extremities: Chronic Holding diuretics No need for wound care evaluation at this time (11) Hypoxia: improved with diuresis, now back to 3 L nc no longer on diuretics (12) DVT prophylaxis: [facility] Palliative care consultation appreciated Remains a full code at this time, however has an extremely guarded and poor prognosis I spoke with multiple family members on 03/21, 03/22, and 03/23 03/24 including her son her sister and her son's father. They were all made aware of the grave impairment this patient is undergone however are not willing to change her CODE STATUS or to withdraw care. Wishes to reevaluate on a daily basis. Admission and Anticipated Discharge Date Admission Date: March 20, 2020 Subjective this pt is still without safe swallowing , pt with daily improvement now c/o left hip pain Review of Systems Review of Systems: Unobtainable due to cognitive status Physical Exam Physical Exam: The patient appeared awake does take some directions, sitting up supporting trunk Vital signs as documented. now having episodes of tachycardia will restart metoprolol Head exam is normocephalic atraumatic no scleral icterus Neck is with JVD, trachea is midline Lungs remain coarse breath sounds bilaterally decreased breath sounds at the bases Cardiac exam, irregularly irregular, variable heart rate control Abdominal exam reveals normal bowel sounds, soft non tender, no masses Extremities are bilateral pedal edema and chronic venous stasis changes left hip is painful Neurologic exam is awake and does follow some commands and is now trying to speak Results & Data Results & Data ([facility]) Vital Signs (Past 12 Hours) Vital Signs Temp Pulse Resp BP BP Pulse Ox 03/26/20 08:01 97.5 F L 60 16 104/59 L 96 03/26/20 01:49 142/89 H PG Care Time/CCT Total # of Minutes Spent Total Time Spent with Patient: Total time spent is greater than 50% in coordination of care (as documented) at patient's floor/unit and/or counseling patient: Coding Level of Care Code 76075 Subseq Hosp Care Lvl 3 Diagnoses Acute metabolic encephalopathy G93.41 Pneumonia J18.9 Elevated troponin R79.89 Acute ischemic cerebrovascular accident (CVA) involving left middle cerebral artery territory I63.512 Combined systolic and diastolic heart failure I50.40 Closed left hip fracture S72.002A Atrial fibrillation I48.91 Hypertension I10 Elevated bilirubin R17 Venous stasis dermatitis of both lower extremities I87.2 Hypoxia R09.02 DVT prophylaxis Z29.9
[2020-03-26] MEDS: ENOXAPARIN INJ 40 MG/0.4 ML SYR SQ SCH (14:24)
[2020-03-26] MEDS: DIGOXIN 0.125 MG/2.5 ML UDP NG SCH (17:40)
[2020-03-27] MEDS: FIBERSOURCE HN 1.2 CAL 1000 ML BAG NG SCH ×2 (04:41→19:31)
[2020-03-27 05:51] LABS: Hematocrit (blood only) 40.1 % (37-47); Hemoglobin 12.8 g/dL (12.0-16.0); Mean Corpuscular Hemoglobin 31.8 pg (25-34); Mean Corpuscular Hgb Conc 31.9 g/dL (32-36); Mean Corpuscular Volume 99.5 fL (80-100); Platelet Count 295 K/uL (130-400); RDW Coefficient of Variation 13.6 % (11.5-14.5); RDW Standard Deviation 49.1 fL (36.4-46.3); Red Blood Count 4.03 M/uL (4.2-5.4); White Blood Count 8.57 K/uL (4.8-10.8)
[2020-03-27 06:22] LABS: Albumin Level 2.8 gm/dl (3.4-5.0); BUN Creatinine Ratio 26.9 (10-20); Creatinine Clr Calc Pharmacy 79.8 ml/min; Est GFR (African American) 104.4; Est GFR (Non-African American) 90.1; Magnesium 2.1 mg/dl (1.8-2.4); Potassium 3.9 mmol/L (3.5-5.1)
[2020-03-27 06:25] LABS: Albumin Globulin Ratio 0.7 (0.9-2); Bilirubin Direct 0.3 mg/dl (0-0.2); Bilirubin,Total 0.8 mg/dl (0.2-1); Globulin 3.8 gm/dl (2.5-4.0); Total Protein 6.6 gm/dl (6.4-8.2)
[2020-03-27] MEDS: cefTRIAXone SODIUM 2,000 MG in DEXTROSE 5% 50 ML IV SCH (09:29)
[2020-03-27] MEDS: ASPIRIN 81 MG CHEW NG SCH (09:44)
[2020-03-27] MEDS: CLOPIDOGREL BISULFATE 75 MG TAB PEG SCH (09:45)
[2020-03-27] MEDS: lisinopriL 5 MG TAB PO SCH (09:46)
[2020-03-27] MEDS: METOPROLOL TARTRATE 25 MG TAB PO SCH ×2 (09:47→20:03)
[2020-03-27] MEDS: ENOXAPARIN INJ 40 MG/0.4 ML SYR SQ SCH (14:07)
--- NOTE | 2020-03-27 14:47 | Hospitalist Progress Note ---
Date of Service March 27, 2020 Assessment & Plan (1) Acute metabolic encephalopathy: Acute metabolic encephalopathy, contributed to by possible aspiration or gram negative pneumonia in the setting of recent large left MCA territory ischemic CVA that is progressively evolving on head CT here on admission. AMS and unresponsiveness due to sequelae of recent cerebral infarction. - Patient continues to have unsafe swallowing evaluations added Coresafe feeding on 03/24 with tolerance of escalation of feeding. - According to family continue wishes for full support and full code. - Seen by ADMISSIONS ADVISOR on 03/27 with plan for advancing diet. (2) Pneumonia: With possible left lower lobe infiltrate seen on chest x-ray though not typical location may be concern for aspiration given her marked swallowing impairment. She has not required any more oxygen than her normal 3 L. - We will cover for gram-negative pneumonia with Rocephin to complete 7 days total last dose on 03/27/20. (3) Elevated troponin: Troponin mildly elevated upon admission. Troponin may be elevated due to demand ischemia could be from brain injury no suspected acute coronary syndrome in this patient. No type 2 NTSEMI. - Continue Plavix as able. (4) Acute ischemic cerebrovascular accident (CVA) involving left middle cerebral artery territory: With recent large territory left MCA acute ischemic CVA last admission with resultant right-sided hemiparesis (although patient can grossly move right sided at this time) and right facial droop with expressive aphasia. - CT head on 03/20 with evolving stroke in the same area. - Plavix as above (5) Combined systolic and diastolic heart failure: With chronic combined systolic and diastolic CHF with most recent EF being 20-25% as well as with RV dysfunction. - Continue beta-alis & ACEi (6) Closed left hip fracture: Patient had a closed hip fracture, previously deemed non-operative by Dr. Razo in December and feels that she would not be a good operative candidate, will have pain control and care with movement, has prn pain medication ordered. (7) Atrial fibrillation: In atrial fibrillation here and has a known history of such with refusal of anticoagulation in the past. - Rate controlled with metoprolol tartrate and digoxin (8) Hypertension: Blood pressure today is 170/95. - Continue beta-alis and ACEi (9) Elevated bilirubin: Bilirubin was mildly elevated to 3.8 on 03/14, but now down to 0.8. - No inpatient needs (10) Venous stasis dermatitis of both lower extremities: Chronic. - Holding diuretics - No need for wound care evaluation at this time (11) Hypoxia: Improved with diuresis, now back to 3 L NC. - No longer on diuretics (12) DVT prophylaxis: Lovenox 40 mg SQ daily Admission and Anticipated Discharge Date Admission Date: March 20, 2020 Subjective Resting peacefully today. Unable to talk, but reports no major distress. Review of Systems Review of Systems: Unobtainable due to mental health condition and Unobtainable due to cognitive status Physical Exam Constitutional: WD/WN, vitals as above Eyes: EOM intact bilaterally; no conjunctival abnormality ENMT: external ear and nose normal, oropharynx normal Neck: trachea midline, no thyromegaly normal visual inspection Respiratory: normal respiratory effort, lungs clear to auscultation no respiratory distress Cardiovascular: RRR, no murmur, no edema Gastrointestinal (Abdomen): Inspection/Auscultation: abdomen normal to inspection; abdomen not distended Musculoskeletal: no cyanosis or clubbing, extremities motor strength 5/5 Skin: no rashes, warm and dry Neurologic: moves all extremities and awake Psychiatric: Orientation: alert and cooperative Speech: + mute Results & Data Results & Data ([facility]) Vital Signs (Past 12 Hours) Vital Signs Temp Pulse Resp BP Pulse Ox 03/27/20 09:33 90 168/95 H 03/27/20 07:38 36.5 C 74 16 148/91 H 98 PG Care Time/CCT Total # of Minutes Spent Total Time Spent with Patient: Total time spent is greater than 50% in coordination of care (as documented) at patient's floor/unit and/or counseling patient: Coding Level of Care Code 85908 Subseq Hosp Care Lvl 2 Diagnoses Acute metabolic encephalopathy G93.41 Pneumonia J18.9 Elevated troponin R79.89 Acute ischemic cerebrovascular accident (CVA) involving left middle cerebral artery territory I63.512 Combined systolic and diastolic heart failure I50.40 Closed left hip fracture S72.002A Atrial fibrillation I48.91 Hypertension I10 Elevated bilirubin R17 Venous stasis dermatitis of both lower extremities I87.2 Hypoxia R09.02 DVT prophylaxis Z29.9
--- NOTE | 2020-03-27 15:40 | Palliative Care Progress Note ---
Date of Service March 27, 2020 Assessment & Plan (1) Goals of care, counseling/discussion: -Pt is a 70 year old female patient with PMH HTN, A fib with RVR, severe LV dysfunction with EF 20-25% on echo this February, RV dysfunction, visual impairment, hyperlipidemia, inoperable left hip fracture in Oct of this year and venous stasis ulcers, was just discharged on 03/18 after suffering a right CVA on 03/14. Staff at the facility called 911 the a.m. of 03/20 when patient was found to be unresponsive. CT scan showed a large, evolving left MCA infarct. Patient had right-sided hemiparesis and expressive aphasia during her last admission-these were improving. Patient returned to the [facility] for rehab on 03/18. Patient continued to refuse anticoagulation for her A. fib, she did agree to switch from aspirin to Plavix and start a low-dose statin. Her A. fib was controlled with digoxin and metoprolol. Multiple discussions with patient as well as family-wish patient to remain a full code, are agreeable to a PEG tube if needed. Patient currently receiving NG feeds-speech working with patient-was able to swallow with cueing. Continue CREATIVE COORDINATOR-hopefully patient will be able to increase her p.o. intake and not require a PEG tube. -Patient is well-known to palliative service as we have been consulted on her many times, including her last admission. -Patient has been living at the [facility] since her hospitalization with the hip fracture this past October. Patient is a unique individual with very non- conventional approach to her health care. Patient known to refuse meds at times-refused AC during her last admission, did agree to switching from ASA to Plavix and starting low-dose statin last admission. -On several previous admissions, patient has stated that she would want her son Genesis to be main contact/decision maker, but she refused to do any POA paperwork. She has a son Nahun who she also trusts. she did not want her two local daughters and son to make decisions for her. She has a total of 8 children. -Patient improving, receiving NG feedings, patient able to take some p.o. with CREATIVE COORDINATOR. Will continue therapies-patient will likely benefit from further rehab when medically stable and ready for discharge. (2) Acute ischemic cerebrovascular accident (CVA) involving left middle cerebral artery territory: (3) Hemiparesis: (4) Expressive aphasia: (5) Atrial fibrillation with rapid ventricular response: (6) Edema: Subjective Patient seen and examined-more alert, no acute distress Patient nonverbal, able to follow a few simple commands Reviewed evaluation by CREATIVE COORDINATOR done earlier today. Patient was not attempting to speak on last exam on 03/24-patient is now attempting to speak, will nod yes or no to simple questions but inconsistent. Patient does have some drooling from the right side of the mouth. Review of Systems Review of Systems: Unobtainable due to cognitive status Physical Exam Physical Exam: PE: Patient awake, more alert. HEENT: NG core safe tube in place. Hearing within normal limits, EOMI Respirations: Unlabored, on O2 at 2 L, no rhonchi on exam CV: Regular rate, lower extremity edema decreasing Abdomen: Soft, nontender Neuro: Right facial droop, right-sided weakness-improving. Expressive aphasia, some receptive aphasia. Results & Data Vital Signs (Past 12 Hours) Vital Signs Temp Pulse Resp BP BP Pulse Ox 03/27/20 15:08 97.7 F 77 18 141/97 H 99 03/27/20 09:33 90 168/95 H 03/27/20 07:38 97.7 F 74 16 148/91 H 98 PG Care Time/CCT Total # of Minutes Spent Total Time Spent with Patient: Total time spent minutes with greater than 50% of the time at bedside assessing patient's current status, reviewing prior stated goals and collaborating with attending physician Coding Level of Care Code 09583 Subseq Hosp Care Lvl 3 Diagnoses Goals of care, counseling/discussion Z71.89 Acute ischemic cerebrovascular accident (CVA) involving left middle cerebral artery territory I63.512 Hemiparesis G81.90 Expressive aphasia R47.01 Atrial fibrillation with rapid ventricular response I48.91 Edema R60.9 Edema type: unspecified Time Spent (min) 35 (1) Edema Edema type: unspecified Qualified Code(s): R60.9 - Edema, unspecified
[2020-03-27] MEDS: DIGOXIN 0.125 MG/2.5 ML UDP NG SCH (17:16)
[2020-03-27] MEDS ORDERED: TRAMADOL HCL 50 MG TABLET PO STA (22:22)
[2020-03-28 07:17] LABS: Albumin Level 2.9 gm/dl (3.4-5.0); BUN Creatinine Ratio 27.9 (10-20); Bilirubin Direct 0.3 mg/dl (0-0.2); Calcium 8.9 mg/dl (8.5-10.1); Creatinine Clr Calc Pharmacy 76.1 ml/min; Est GFR (African American) 102.8; Est GFR (Non-African American) 88.7; Magnesium 2.2 mg/dl (1.8-2.4); Potassium 3.8 mmol/L (3.5-5.1)
[2020-03-28 07:20] LABS: Albumin Globulin Ratio 0.8 (0.9-2); Bilirubin,Total 0.8 mg/dl (0.2-1); Globulin 3.7 gm/dl (2.5-4.0); Total Protein 6.6 gm/dl (6.4-8.2)
[2020-03-28] MEDS: METOPROLOL TARTRATE 25 MG TAB PO SCH ×3 (09:04→20:42)
[2020-03-28] MEDS: cefTRIAXone SODIUM 2,000 MG in DEXTROSE 5% 50 ML IV SCH (09:04)
[2020-03-28] MEDS: ASPIRIN 81 MG CHEW NG SCH ×2 (09:37→10:40)
[2020-03-28] MEDS: lisinopriL 5 MG TAB PO SCH (10:40)
[2020-03-28] MEDS: CLOPIDOGREL BISULFATE 75 MG TAB PEG SCH (10:40)
--- NOTE | 2020-03-28 12:51 | Hospitalist Progress Note ---
Date of Service March 28, 2020 Assessment & Plan (1) Acute metabolic encephalopathy: Acute metabolic encephalopathy, contributed to by possible aspiration or gram negative pneumonia in the setting of recent large left MCA territory ischemic CVA that is progressively evolving on head CT here on admission. AMS and unresponsiveness due to sequelae of recent cerebral infarction. - Patient continues to have unsafe swallowing evaluations added Coresafe feeding on 03/24 with tolerance of escalation of feeding. - According to family continue wishes for full support and full code. - Seen by SHORT GOODS DRIER on 03/27 with plan for advancing diet. - On 03/28, she is doing better, but still afraid of eating or drinking. SHORT GOODS DRIER spent time explaining this is a skill that must be re-learned. Will see how eating goes today. (2) Pneumonia: With possible left lower lobe infiltrate seen on chest x-ray though not typical location may be concern for aspiration given her marked swallowing impairment. She has not required any more oxygen than her normal 3 L. - Covered for gram-negative pneumonia with Rocephin completed 7 days total last dose on 03/27/20. (3) Elevated troponin: Troponin mildly elevated upon admission. Troponin may be elevated due to demand ischemia could be from brain injury no suspected acute coronary syndrome in this patient. No type 2 NTSEMI. - Continue Plavix as able. (4) Acute ischemic cerebrovascular accident (CVA) involving left middle cerebral artery territory: With recent large territory left MCA acute ischemic CVA last admission with resultant right-sided hemiparesis (although patient can grossly move right sided at this time) and right facial droop with expressive aphasia. - CT head on 03/20 with evolving stroke in the same area. - Plavix as above (5) Combined systolic and diastolic heart failure: With chronic combined systolic and diastolic CHF with most recent EF being 20-25% as well as with RV dysfunction. - Continue beta-alis & ACEi (6) Closed left hip fracture: Patient had a closed hip fracture, previously deemed non-operative by Dr. Razo in December and feels that she would not be a good operative candidate, will have pain control and care with movement, has prn pain medication ordered. (7) Atrial fibrillation: In atrial fibrillation here and has a known history of such with refusal of anticoagulation in the past. - Rate controlled with metoprolol tartrate and digoxin (8) Hypertension: Blood pressure today is 155/90. - Continue beta-alis and ACEi (9) Elevated bilirubin: Bilirubin was mildly elevated to 3.8 on 03/14, but now down to 0.8. - No inpatient needs (10) Venous stasis dermatitis of both lower extremities: Chronic. - Holding diuretics - No need for wound care evaluation at this time (11) Hypoxia: Improved with diuresis, now back to 3 L NC. - No longer on diuretics (12) DVT prophylaxis: Lovenox 40 mg SQ daily Admission and Anticipated Discharge Date Admission Date: March 20, 2020 Subjective Tearful for me today. Reports she is "scared" of eating or drinking. Reports no fevers/chills, chest pain, shortness of breath, abdominal pain, nausea, or vomiting. Physical Exam Constitutional: WD/WN, vitals as above Eyes: EOM intact bilaterally; no conjunctival abnormality ENMT: external ear and nose normal, oropharynx normal Neck: trachea midline, no thyromegaly normal visual inspection Respiratory: normal respiratory effort, lungs clear to auscultation no respiratory distress Cardiovascular: RRR, no murmur, no edema Gastrointestinal (Abdomen): Inspection/Auscultation: abdomen normal to inspection; abdomen not distended Musculoskeletal: no cyanosis or clubbing, extremities motor strength 5/5 Skin: no rashes, warm and dry Neurologic: moves all extremities and awake Psychiatric: Orientation: alert and cooperative Speech: + mute Affect: + tearful affect Results & Data Results & Data ([facility]) Vital Signs (Past 12 Hours) Vital Signs Temp Pulse Resp BP Pulse Ox 03/28/20 07:32 36.5 C 82 18 154/90 H 99 PG Care Time/CCT Total # of Minutes Spent Total Time Spent with Patient: Total time spent is greater than 50% in coordination of care (as documented) at patient's floor/unit and/or counseling patient: Coding Level of Care Code 12052 Subseq Hosp Care Lvl 2 Diagnoses Acute metabolic encephalopathy G93.41 Pneumonia J18.9 Elevated troponin R79.89 Acute ischemic cerebrovascular accident (CVA) involving left middle cerebral artery territory I63.512 Combined systolic and diastolic heart failure I50.40 Closed left hip fracture S72.002A Atrial fibrillation I48.91 Hypertension I10 Elevated bilirubin R17 Venous stasis dermatitis of both lower extremities I87.2 Hypoxia R09.02 DVT prophylaxis Z29.9
[2020-03-28] MEDS ORDERED: METOPROLOL TARTRATE 1 MG/ML VIAL IV PRN (13:04)
[2020-03-28] MEDS ORDERED: HydrALAZINE HCL 20 MG/ML VIAL IV PRN (13:04)
[2020-03-28] MEDS: MoRPHine SULFATE 2 MG/ML CARP IV PRN ×3 (13:33→23:17)
[2020-03-28] MEDS: ENOXAPARIN INJ 40 MG/0.4 ML SYR SQ SCH (14:37)
[2020-03-28] MEDS: DIGOXIN 0.125 MG/2.5 ML UDP NG SCH (15:58)
[2020-03-28] MEDS: FIBERSOURCE HN 1.2 CAL 1000 ML BAG NG SCH (19:34)
[2020-03-29] MEDS: MoRPHine SULFATE 2 MG/ML CARP IV PRN ×2 (04:57→13:46)
[2020-03-29 06:39] LABS: Hematocrit (blood only) 40.6 % (37-47); Hemoglobin 12.7 g/dL (12.0-16.0); Mean Corpuscular Hgb Conc 31.3 g/dL (32-36); Mean Platelet Volume 9.3 fL (7.4-10.4); Platelet Count 272 K/uL (130-400); RDW Coefficient of Variation 13.7 % (11.5-14.5)
[2020-03-29 07:08] LABS: BUN Creatinine Ratio 30.1 (10-20); Calcium 9.1 mg/dl (8.5-10.1); Creatinine Clr Calc Pharmacy 67.7 ml/min; Est GFR (African American) 95.4; Est GFR (Non-African American) 82.3; Magnesium 2.3 mg/dl (1.8-2.4); Phosphorus 3.6 mg/dl (2.5-4.9); Potassium 4.2 mmol/L (3.5-5.1)
[2020-03-29] MEDS: METOPROLOL TARTRATE 25 MG TAB PO SCH ×2 (10:29→20:35)
[2020-03-29] MEDS: lisinopriL 5 MG TAB PO SCH (10:29)
[2020-03-29] MEDS: CLOPIDOGREL BISULFATE 75 MG TAB PEG SCH (10:49)
--- NOTE | 2020-03-29 13:51 | Hospitalist Progress Note ---
Date of Service March 29, 2020 Assessment & Plan (1) Acute metabolic encephalopathy: Acute metabolic encephalopathy, contributed to by possible aspiration or gram negative pneumonia in the setting of recent large left MCA territory ischemic CVA that is progressively evolving on head CT here on admission. AMS and unresponsiveness due to sequelae of recent cerebral infarction. - Patient continues to have unsafe swallowing evaluations added Coresafe feeding on 03/24 with tolerance of escalation of feeding. - According to family continue wishes for full support and full code. - Seen by MOISTURE CONDITIONER OPERATOR on 03/27 with plan for advancing diet. - On 03/28, she is doing better, but still afraid of eating or drinking. MOISTURE CONDITIONER OPERATOR spent time explaining this is a skill that must be re-learned. Will see how eating goes over the next few days. - Encouraged her to keep working on swallowing. Will either need to maintain nutrition with her oral intake or re-consider PEG tube (which she vigorously shook her head to yesterday) or move toward comfort measures. (2) Pneumonia: With possible left lower lobe infiltrate seen on chest x-ray though not typical location may be concern for aspiration given her marked swallowing impairment. She has not required any more oxygen than her normal 3 L. - Covered for gram-negative pneumonia with Rocephin completed 7 days total last dose on 03/27/20. - No indication of recurrent pneumonia at this time. (3) Elevated troponin: Troponin mildly elevated upon admission. Troponin may be elevated due to demand ischemia could be from brain injury no suspected acute coronary syndrome in this patient. No type 2 NTSEMI. - Continue Plavix as able. (4) Acute ischemic cerebrovascular accident (CVA) involving left middle cerebral artery territory: With recent large territory left MCA acute ischemic CVA last admission with resultant right-sided hemiparesis (although patient can grossly move right sided at this time) and right facial droop with expressive aphasia. - CT head on 03/20 with evolving stroke in the same area. - Plavix as above (5) Combined systolic and diastolic heart failure: With chronic combined systolic and diastolic CHF with most recent EF being 20-25% as well as with RV dysfunction. - Continue beta-alis & ACEi with hold parameters. (6) Closed left hip fracture: Patient had a closed hip fracture, previously deemed non-operative by Dr. Razo in December and feels that she would not be a good operative candidate, will have pain control and care with movement, has prn pain medication ordered. (7) Atrial fibrillation: In atrial fibrillation here and has a known history of such with refusal of anticoagulation in the past. - Rate controlled with metoprolol tartrate and digoxin (8) Hypertension: Blood pressure today is 155/90. - Continue beta-alis and ACEi (9) Elevated bilirubin: Bilirubin was mildly elevated to 3.8 on 03/14, but now down to 0.8. - No inpatient needs (10) Venous stasis dermatitis of both lower extremities: Chronic. - Holding diuretics - No need for wound care evaluation at this time (11) Hypoxia: Improved with diuresis, now back to 2 L NC. - No longer on diuretics (12) DVT prophylaxis: Lovenox 40 mg SQ daily Admission and Anticipated Discharge Date Admission Date: March 20, 2020 Subjective Received morphine in the morning and is more tired today. Able to open eyes to verbal stimulus, but no answering any questions. Review of Systems Review of Systems: Unobtainable due to cognitive status and Unobtainable due to reduced consciousness Physical Exam Constitutional: WD/WN, vitals as above Eyes: EOM intact bilaterally; no conjunctival abnormality ENMT: external ear and nose normal, oropharynx normal Neck: trachea midline, no thyromegaly normal visual inspection Respiratory: normal respiratory effort, lungs clear to auscultation no res piratory distress Cardiovascular: RRR, no murmur, no edema Gastrointestinal (Abdomen): Inspection/Auscultation: abdomen normal to inspection; abdomen not distended Musculoskeletal: no cyanosis or clubbing, extremities motor strength 5/5 Skin: no rashes, warm and dry Neurologic: moves all extremities; + not awake Psychiatric: Orientation: cooperative; + not alert Speech: + mute Results & Data Results & Data ([facility]) Vital Signs (Past 12 Hours) Vital Signs Temp Pulse Pulse Resp BP Pulse Ox 03/29/20 08:21 62 107/67 98 03/29/20 07:14 36.6 C 59 L 18 108/62 100 PG Care Time/CCT Total # of Minutes Spent Total Time Spent with Patient: Total time spent is greater than 50% in coordination of care (as documented) at patient's floor/unit and/or counseling patient: Coding Level of Care Code 92563 Subseq Hosp Care Lvl 2 Diagnoses Acute metabolic encephalopathy G93.41 Pneumonia J18.9 Elevated troponin R79.89 Acute ischemic cerebrovascular accident (CVA) involving left middle cerebral artery territory I63.512 Combined systolic and diastolic heart failure I50.40 Closed left hip fracture S72.002A Atrial fibrillation I48.91 Hypertension I10 Elevated bilirubin R17 Venous stasis dermatitis of both lower extremities I87.2 Hypoxia R09.02 DVT prophylaxis Z29.9
[2020-03-29] MEDS: ENOXAPARIN INJ 40 MG/0.4 ML SYR SQ SCH (14:06)
[2020-03-29] MEDS: DIGOXIN 0.125 MG/2.5 ML UDP NG SCH (16:34)
[2020-03-29] MEDS: ACETAMINOPHEN SOLN 650 MG/20.3 ML UDC NG PRN (17:43)
[2020-03-29] MEDS: FIBERSOURCE HN 1.2 CAL 1000 ML BAG NG SCH (19:54)
[2020-03-30] MEDS: MoRPHine SULFATE 2 MG/ML CARP IV PRN ×3 (05:21→14:02)
[2020-03-30 06:43] LABS: Hematocrit (blood only) 40.5 % (37-47); Hemoglobin 12.6 g/dL (12.0-16.0); Mean Corpuscular Hemoglobin 31.6 pg (25-34); Mean Corpuscular Hgb Conc 31.1 g/dL (32-36); Mean Corpuscular Volume 101.5 fL (80-100); Mean Platelet Volume 9.4 fL (7.4-10.4); Platelet Count 290 K/uL (130-400); RDW Coefficient of Variation 13.5 % (11.5-14.5); RDW Standard Deviation 50.5 fL (36.4-46.3); Red Blood Count 3.99 M/uL (4.2-5.4); White Blood Count 7.36 K/uL (4.8-10.8)
[2020-03-30 07:17] LABS: BUN Creatinine Ratio 29.4 (10-20); Calcium 8.8 mg/dl (8.5-10.1); Creatinine Clr Calc Pharmacy 71.7 ml/min; Est GFR (African American) 100.8; Magnesium 2.1 mg/dl (1.8-2.4)
[2020-03-30] MEDS: lisinopriL 5 MG TAB PO SCH (08:00)
[2020-03-30] MEDS: CLOPIDOGREL BISULFATE 75 MG TAB PEG SCH (08:00)
[2020-03-30] MEDS: METOPROLOL TARTRATE 25 MG TAB PO SCH ×2 (08:12→21:49)
--- NOTE | 2020-03-30 13:55 | Palliative Care Progress Note ---
Date of Service March 30, 2020 Assessment & Plan (1) Goals of care, counseling/discussion: -Pt is a 70 year old female patient with PMH HTN, A fib with RVR, severe LV dysfunction with EF 20-25% on echo this February, RV dysfunction, visual impairment, hyperlipidemia, inoperable left hip fracture in Oct of this year and venous stasis ulcers, was just discharged on 03/18 after suffering a right CVA on 03/14. Staff at the facility called 911 the a.m. of 03/20 when patient was found to be unresponsive. CT scan showed a large, evolving left MCA infarct. Patient had right-sided hemiparesis and expressive aphasia during her last admission-these were improving. Patient returned to the [facility] for rehab on 03/18. Patient continued to refuse anticoagulation for her A. fib, she did agree to switch from aspirin to Plavix and start a low-dose statin. Her A. fib was controlled with digoxin and metoprolol. Multiple discussions with patient as well as family-wish patient to remain a full code, further discussions with family regarding PEG tube. Patient wishes to continue NG feeds and work with PICKING MACHINE OPERATOR HELPER as well as I can ascertain from our conversation as patient has significant expressive aphasia Patient currently receiving NG feeds-speech working with patient-was able to swallow with cueing. Continue PICKING MACHINE OPERATOR HELPER-hopefully patient will be able to increase her p.o. intake and not require a PEG tube. -Patient is well-known to palliative service as we have been consulted on her many times, including her last admission. -Patient has been living at the [facility] since her hospitalization with the hip fracture this past October. Patient is a unique individual with very non- conventional approach to her health care. Patient known to refuse meds at times-refused AC during her last admission, did agree to switching from ASA to Plavix and starting low-dose statin last admission. -On several previous admissions, patient has stated that she would want her son Genesis to be main contact/decision maker, but she refused to do any POA paperwork. She has a son Nahun who she also trusts. she did not want her two local daughters and son to make decisions for her. She has a total of 8 children. -Patient has improved slightly, receiving NG feedings, patient able to take some p.o. with PICKING MACHINE OPERATOR HELPER. Will continue therapies-patient will likely benefit from further rehab when medically stable and ready for discharge. -We will continue conversations regarding patient's wishes regarding PEG tube placement. (2) Acute ischemic cerebrovascular accident (CVA) involving left middle cerebral artery territory: (3) Hemiparesis: (4) Expressive aphasia: (5) Atrial fibrillation with rapid ventricular response: (6) Edema: Subjective Patient awake alert, no acute distress. Patient continues to have significant expressive aphasia as well as dysphasia. Continues on NG tube feeds. Attempted did discuss her wishes regarding PEG tube placement-understood from patient that she wants her son to make that decision. Patient does not particularly want a feeding tube-she wants to continue with PICKING MACHINE OPERATOR HELPER and be able to eat by mouth. Patient is made some improvement from the extension of her stroke, but still has a right facial droop and poor p.o. intake. Review of Systems Review of Systems: Unable to obtain due to expressive aphasia Physical Exam Physical Exam: PE: Patient awake alert HEENT: EOMI, hearing within normal limits Respiration: Clear breath sounds, unlabored CV: Bradycardia with exam, lower extremity edema improving Abdomen: Soft, nontender Extremities: Left lower extremity externally rotated due to fracture, partial hemiparesis on right Neuro: Right hemiparesis, right facial droop, able to follow simple commands Results & Data Vital Signs (Past 12 Hours) Vital Signs Temp Pulse Resp BP Pulse Ox 03/30/20 07:35 98.6 F 53 L 16 125/63 91 PG Care Time/CCT Total # of Minutes Spent Total Time Spent with Patient: Total time spent 35 minutes with greater than 50% of the time spent at bedside trying to determine patient's wishes regarding surgical feeding tube. Coding Level of Care Code 21617 Subseq Hosp Care Lvl 3 Diagnoses Goals of care, counseling/discussion Z71.89 Acute ischemic cerebrovascular accident (CVA) involving left middle cerebral artery territory I63.512 Hemiparesis G81.90 Expressive aphasia R47.01 Atrial fibrillation with rapid ventricular response I48.91 Edema R60.9 Edema type: unspecified Time Spent (min) 35 (1) Edema Edema type: unspecified Qualified Code(s): R60.9 - Edema, unspecified
--- NOTE | 2020-03-30 14:05 | Hospitalist Progress Note ---
Date of Service March 30, 2020 Assessment & Plan (1) Acute metabolic encephalopathy: Acute metabolic encephalopathy, contributed to by possible aspiration or gram negative pneumonia in the setting of recent large left MCA territory ischemic CVA that is progressively evolving on head CT here on admission. AMS and unresponsiveness due to sequelae of recent cerebral infarction. - Patient continues to have unsafe swallowing evaluations added Coresafe feeding on 03/24 with tolerance of escalation of feeding. - According to family continue wishes for full support and full code. - Seen by TRANSPORTATION PROJECT MANAGER on 03/27 with plan for advancing diet. - On 03/28, she is doing better, but still afraid of eating or drinking. TRANSPORTATION PROJECT MANAGER spent time explaining this is a skill that must be re-learned. Will see how eating goes over the next few days. - Will discuss with son about PEG tube. I do not feel she will be able to continue to support her nutrition and hydration needs without one. (2) Pneumonia: With possible left lower lobe infiltrate seen on chest x-ray though not typical location may be concern for aspiration given her marked swallowing impairment. She has not required any more oxygen than her normal 3 L. - Covered for gram-negative pneumonia with Rocephin completed 7 days total last dose on 03/27/20. - No indication of recurrent pneumonia at this time. (3) Elevated troponin: Troponin mildly elevated upon admission. Troponin may be elevated due to demand ischemia could be from brain injury no suspected acute coronary syndrome in this patient. No type 2 NTSEMI. - Continue Plavix (4) Acute ischemic cerebrovascular accident (CVA) involving left middle cerebral artery territory: With recent large territory left MCA acute ischemic CVA last admission with resultant right-sided hemiparesis (although patient can grossly move right sided at this time) and right facial droop with expressive aphasia. - CT head on 03/20 with evolving stroke in the same area. - Plavix as above (5) Combined systolic and diastolic heart failure: With chronic combined systolic and diastolic CHF with most recent EF being 20-25% as well as with RV dysfunction. - Continue beta-alis & ACEi with hold parameters. (6) Closed left hip fracture: Patient had a closed hip fracture, previously deemed non-operative by Dr. Razo in December and feels that she would not be a good operative candidate, will have pain control and care with movement, has prn pain medication ordered. (7) Atrial fibrillation: In atrial fibrillation here and has a known history of such with refusal of anticoagulation in the past. - Rate controlled with metoprolol tartrate and digoxin - HR is running low at times (50s), so beta-alis occasionally held per parameters. (8) Hypertension: Blood pressure today is 125/60. - Continue beta-alis and ACEi as above (9) Elevated bilirubin: Bilirubin was mildly elevated to 3.8 on 03/14, but now down to 0.8. - No inpatient needs (10) Venous stasis dermatitis of both lower extremities: Chronic. - Holding diuretics - No need for wound care evaluation at this time (11) Hypoxia: Improved with diuresis, now back to 2 L NC. - No longer on diuretics (12) DVT prophylaxis: Lovenox 40 mg SQ daily Admission and Anticipated Discharge Date Admission Date: March 20, 2020 Subjective Seen twice today. In the AM, she was still quite tired. Then seen around noon while eating lunch with speech therapy. Still not able to speak, and this seems to be holding steady/even mildly decreasing as she gets out fewer words. Otherwise, she is able to nod and shake her head, though she tries to get the words out and has trouble answering questions because she attempts verbal responses. Review of Systems Review of Systems: Unobtainable due to cognitive status Physical Exam Constitutional: WD/WN, vitals as above Eyes: EOM intact bilaterally; no conjunctival abnormality ENMT: external ear and nose normal, oropharynx normal Neck: trachea midline, no thyromegaly normal visual inspection Respiratory: normal respiratory effort, lungs clear to auscultation no respiratory distress Cardiovascular: RRR, no murmur, no edema Gastrointestinal (Abdomen): Inspection/Auscultation: abdomen normal to inspection; abdomen not distended Musculoskeletal: no cyanosis or clubbing, extremities motor strength 5/5 Skin: no rashes, warm and dry Neurologic: moves all extremities and awake Psychiatric: Orientation: alert and cooperative Speech: + mute Affect: + tearful affect Results & Data Results & Data ([facility]) Vital Signs (Past 12 Hours) Vital Signs Temp Pulse Resp BP Pulse Ox 03/30/20 07:35 37 C 53 L 16 125/63 91 PG Care Time/CCT Total # of Minutes Spent Total Time Spent with Patient: Total time spent is greater than 50% in coordination of care (as documented) at patient's floor/unit and/or counseling patient: Coding Level of Care Code 43026 Subseq Hosp Care Lvl 2 Diagnoses Acute metabolic encephalopathy G93.41 Pneumonia J18.9 Elevated troponin R79.89 Acute ischemic cerebrovascular accident (CVA) involving left middle cerebral artery territory I63.512 Combined systolic and diastolic heart failure I50.40 Closed left hip fracture S72.002A Atrial fibrillation I48.91 Hypertension I10 Elevated bilirubin R17 Venous stasis dermatitis of both lower extremities I87.2 Hypoxia R09.02 DVT prophylaxis Z29.9
[2020-03-30] MEDS: ENOXAPARIN INJ 40 MG/0.4 ML SYR SQ SCH (15:20)
[2020-03-30] MEDS: DIGOXIN 0.125 MG/2.5 ML UDP NG SCH (15:21)
[2020-03-30] MEDS: ACETAMINOPHEN SOLN 650 MG/20.3 ML UDC NG PRN (19:20)
[2020-03-30] MEDS: FIBERSOURCE HN 1.2 CAL 1000 ML BAG NG SCH (19:21)
[2020-03-31] MEDS: MoRPHine SULFATE 2 MG/ML CARP IV PRN ×4 (04:28→23:37)
[2020-03-31] MEDS: lisinopriL 5 MG TAB PO SCH (08:39)
[2020-03-31] MEDS: METOPROLOL TARTRATE 25 MG TAB PO SCH ×2 (08:39→20:54)
[2020-03-31] MEDS: CLOPIDOGREL BISULFATE 75 MG TAB PEG SCH (08:40)
[2020-03-31] MEDS: ACETAMINOPHEN SOLN 650 MG/20.3 ML UDC NG PRN ×2 (12:52→19:12)
[2020-03-31] MEDS: ENOXAPARIN INJ 40 MG/0.4 ML SYR SQ SCH (14:01)
--- NOTE | 2020-03-31 14:18 | Hospitalist Progress Note ---
Date of Service March 31, 2020 Assessment & Plan (1) Acute metabolic encephalopathy: Acute metabolic encephalopathy, contributed to by possible aspiration or gram negative pneumonia in the setting of recent large left MCA territory ischemic CVA that is progressively evolving on head CT here on admission. AMS and unresponsiveness due to sequelae of recent cerebral infarction. - Patient continues to have unsafe swallowing evaluations added Coresafe feeding on 03/24 with tolerance of escalation of feeding. - According to family continue wishes for full support and full code. - Seen by RIGGER SUPERVISOR on 03/27 with plan for advancing diet. - On 03/28, she is doing better, but still afraid of eating or drinking. RIGGER SUPERVISOR spent time explaining this is a skill that must be re-learned. Will see how eating goes over the next few days. - Will discuss with son about PEG tube. I do not feel she will be able to continue to support her nutrition and hydration needs without one. = Mr. Lewis (son) is discussing with family. Presently she is not able to meet her nutritional needs. Only ate a small portion of breakfast/lunch today. (2) Pneumonia: With possible left lower lobe infiltrate seen on chest x-ray though not typical location may be concern for aspiration given her marked swallowing impairment. She has not required any more oxygen than her normal 3 L. - Covered for gram-negative pneumonia with Rocephin completed 7 days total last dose on 03/27/20. - No indication of recurrent pneumonia at this time. (3) Elevated troponin: Troponin mildly elevated upon admission. Troponin may be elevated due to demand ischemia could be from brain injury no suspected acute coronary syndrome in this patient. No type 2 NTSEMI. - Continue Plavix (4) Acute ischemic cerebrovascular accident (CVA) involving left middle cerebral artery territory: With recent large territory left MCA acute ischemic CVA last admission with resultant right-sided hemiparesis (although patient can grossly move right sided at this time) and right facial droop with expressive aphasia. - CT head on 03/20 with evolving stroke in the same area. - Plavix as above (5) Combined systolic and diastolic heart failure: With chronic combined systolic and diastolic CHF with most recent EF being 20-25% as well as with RV dysfunction. - Continue beta-alis & ACEi with hold parameters. (6) Closed left hip fracture: Patient had a closed hip fracture, previously deemed non-operative by Dr. Razo in December and feels that she would not be a good operative candidate, will have pain control and care with movement, has prn pain medication ordered. (7) Atrial fibrillation: In atrial fibrillation here and has a known history of such with refusal of anticoagulation in the past. - Rate controlled with metoprolol tartrate and digoxin - HR is running low at times (50s), so beta-alis occasionally held per parameters. Today HR is in the 80s. (8) Hypertension: Blood pressure today is 125/60. - Continue beta-alis and ACEi as above (9) Elevated bilirubin: Bilirubin was mildly elevated to 3.8 on 03/14, but now down to 0.8. - No inpatient needs (10) Venous stasis dermatitis of both lower extremities: Chronic. - Holding diuretics - No need for wound care evaluation at this time (11) Hypoxia: Improved with diuresis, now back to 2 L NC. - No longer on diuretics (12) DVT prophylaxis: Lovenox 40 mg SQ daily Admission and Anticipated Discharge Date Admission Date: March 20, 2020 Subjective Unarousable today; not really responding to stimulus. Review of Systems Review of Systems: Unobtainable due to cognitive status and Unobtainable due to reduced consciousness Physical Exam Constitutional: WD/WN, vitals as above Eyes: EOM intact bilaterally; no conjunctival abnormality ENMT: external ear and nose normal, oropharynx normal Neck: trachea midline, no thyromegaly normal visual inspection Respiratory: normal respiratory effort, lungs clear to auscultation no respiratory distress Cardiovascular: RRR, no murmur, no edema Gastrointestinal (Abdomen): Inspection/Auscultation: abdomen normal to inspection; abdomen not distended Musculoskeletal: no cyanosis or clubbing, extremities motor strength 5/5 Skin: no rashes, warm and dry Neurologic: moves all extremities and awake Psychiatric: Orientation: alert and cooperative Speech: + mute Affect: + tearful affect Results & Data Results & Data ([facility]) Vital Signs (Past 12 Hours) Vital Signs Temp Pulse Resp BP Pulse Ox 03/31/20 11:41 145/79 H 03/31/20 07:07 36.5 C 82 20 153/77 H 98 PG Care Time/CCT Total # of Minutes Spent Total Time Spent with Patient: Total time spent is greater than 50% in coordination of care (as documented) at patient's floor/unit and/or counseling patient: Coding Level of Care Code 31415 Subseq Hosp Care Lvl 2 Diagnoses Acute metabolic encephalopathy G93.41 Pneumonia J18.9 Elevated troponin R79.89 Acute ischemic cerebrovascular accident (CVA) involving left middle cerebral artery territory I63.512 Combined systolic and diastolic heart failure I50.40 Closed left hip fracture S72.002A Atrial fibrillation I48.91 Hypertension I10 Elevated bilirubin R17 Venous stasis dermatitis of both lower extremities I87.2 Hypoxia R09.02 DVT prophylaxis Z29.9
--- NOTE | 2020-03-31 14:23 | Palliative Care Progress Note ---
Date of Service March 31, 2020 Assessment & Plan (1) Goals of care, counseling/discussion: -Pt is a 70 year old female patient with PMH HTN, A fib with RVR, severe LV dysfunction with EF 20-25% on echo this February, RV dysfunction, visual impairment, hyperlipidemia, inoperable left hip fracture in Oct of this year and venous stasis ulcers, was just discharged on 03/18 after suffering a right CVA on 03/14. Staff at the facility called 911 the a.m. of 03/20 when patient was found to be unresponsive. CT scan showed a large, evolving left MCA infarct. Patient had right-sided hemiparesis and expressive aphasia during her last admission-these were improving. Patient returned to the [facility] for rehab on 03/18. Patient continued to refuse anticoagulation for her A. fib, she did agree to switch from aspirin to Plavix and start a low-dose statin. Her A. fib was controlled with digoxin and metoprolol. Multiple discussions with patient as well as family regarding PEG tube and CODE STATUS. Patient wishes to continue NG feeds and work with SOLID PROPELLANT PROCESSOR. We will follow- up with family on Friday. -Discussed with family her evolving stroke i.e. meaning it is expanding as well as high potential for further strokes. -Patient has been living at the [facility] since her hospitalization with the hi p fracture this past October. Patient is a unique individual with very non- conventional approach to her health care. Patient known to refuse meds at times-refused AC during her last admission, did agree to switching from ASA to Plavix and starting low-dose statin last admission. -On several previous admissions, patient has stated that she would want her son Genesis to be main contact/decision maker, but she refused to do any POA paperwork. She has a son Nahun who she also trusts. she did not want her two local daughters and son to make decisions for her. She has a total of 8 children. -We will continue to attempt conversations with patient regarding regarding her wishes , continue conversation with family regarding PEG tube placement. (2) Acute ischemic cerebrovascular accident (CVA) involving left middle cerebral artery territory: (3) Hemiparesis: (4) Expressive aphasia: (5) Atrial fibrillation with rapid ventricular response: (6) Edema: Subjective Patient seen and examined, patient was sleeping, did not arouse to voice or touch. Collaborated with attending physician Dr. Briceno. Patient had a very little p.o. at breakfast, her lunch tray was at bedside- untouched. Patient tolerating NG feeds. Spoke with patient's son, Genesis, . Updated patient's son regarding current status and poor p.o. intake. Family needs to make a decision regarding surgical feeding tube. Genesis requested that I speak to his father, Neal Lewis-[phone], gave him the same information. Family to think about goals of care and will follow up on Friday to see what their decision is. Review of Systems Review of Systems: Unobtainable due to cognitive status Physical Exam Physical Exam: PE: Appears comfortable at rest HEENT: NG tube in place Respirations: Unlabored, clear breath sounds CV: Regular rate, decreased lower extremity edema Abdomen: Positive bowel sounds, soft Extremities: Left lower extremity externally rotated Results & Data Vital Signs (Past 12 Hours) Vital Signs Temp Pulse Resp BP Pulse Ox 03/31/20 11:41 145/79 H 03/31/20 07:07 97.7 F 82 20 153/77 H 98 PG Care Time/CCT Total # of Minutes Spent Total Time Spent with Patient: Total time spent 40 minutes with greater than 50% of the time spent at bedside as well as speaking to family by phone. Coding Level of Care Code 50787 Subseq Hosp Care Lvl 3 Diagnoses Goals of care, counseling/discussion Z71.89 Acute ischemic cerebrovascular accident (CVA) involving left middle cerebral artery territory I63.512 Hemiparesis G81.90 Expressive aphasia R47.01 Atrial fibrillation with rapid ventricular response I48.91 Edema R60.9 Edema type: unspecified Time Spent (min) 40 (1) Edema Edema type: unspecified Qualified Code(s): R60.9 - Edema, unspecified
[2020-03-31] MEDS: DIGOXIN 0.125 MG/2.5 ML UDP NG SCH (17:11)
[2020-03-31] MEDS ORDERED: MoRPHine SULFATE 2 MG/ML CARP IV STA (17:38)
[2020-03-31] MEDS: FIBERSOURCE HN 1.2 CAL 1000 ML BAG NG SCH (19:21)
[2020-03-31] MEDS ORDERED: TROLAMINE SALICYLATE 10% CRM 255 APPLN/85 GM TUBE EXT PRN (19:40)
[2020-04-01] MEDS ORDERED: KETOROLAC TROMETHAMINE 15 MG/ML VIAL IV ONE (02:38)
[2020-04-01 07:23] LABS: Hematocrit (blood only) 42.2 % (37-47); Mean Corpuscular Hemoglobin 30.9 pg (25-34); Mean Corpuscular Hgb Conc 30.8 g/dL (32-36); Mean Corpuscular Volume 100.2 fL (80-100); Mean Platelet Volume 9.2 fL (7.4-10.4); Platelet Count 283 K/uL (130-400); RDW Coefficient of Variation 13.7 % (11.5-14.5); Red Blood Count 4.21 M/uL (4.2-5.4); White Blood Count 8.65 K/uL (4.8-10.8)
[2020-04-01] MEDS: lisinopriL 5 MG TAB PO SCH (07:43)
[2020-04-01] MEDS: ACETAMINOPHEN SOLN 650 MG/20.3 ML UDC NG PRN ×3 (07:44→21:35)
[2020-04-01] MEDS: METOPROLOL TARTRATE 25 MG TAB PO SCH ×2 (07:44→21:28)
[2020-04-01] MEDS: CLOPIDOGREL BISULFATE 75 MG TAB PEG SCH (07:44)
[2020-04-01 07:51] LABS: BUN Creatinine Ratio 27.6 (10-20); Calcium 9.1 mg/dl (8.5-10.1); Creatinine Clr Calc Pharmacy 67.7 ml/min; Est GFR (African American) 95.4; Est GFR (Non-African American) 82.3; Magnesium 2.1 mg/dl (1.8-2.4); Phosphorus 3.3 mg/dl (2.5-4.9); Potassium 4.3 mmol/L (3.5-5.1)
[2020-04-01] MEDS: MoRPHine SULFATE 2 MG/ML CARP IV PRN ×2 (10:26→19:23)
[2020-04-01] MEDS: ENOXAPARIN INJ 40 MG/0.4 ML SYR SQ SCH (14:11)
--- NOTE | 2020-04-01 16:05 | Hospitalist Progress Note ---
Date of Service April 01, 2020 Assessment & Plan (1) Acute metabolic encephalopathy: Acute metabolic encephalopathy, contributed to by possible aspiration or gram negative pneumonia in the setting of recent large left MCA territory ischemic CVA that is progressively evolving on head CT here on admission. AMS and unresponsiveness due to sequelae of recent cerebral infarction. - Patient continues to have unsafe swallowing evaluations added Coresafe feeding on 03/24 with tolerance of escalation of feeding. - According to family continue wishes for full support and full code. - Seen by FLUOROSCOPE OPERATOR on 03/27 with plan for advancing diet. - On 03/28, she is doing better, but still afraid of eating or drinking. FLUOROSCOPE OPERATOR spent time explaining this is a skill that must be re-learned. Will see how eating goes over the next few days. - Will discuss with son about PEG tube. I do not feel she will be able to continue to support her nutrition and hydration needs without one. = Mr. Lewis (son) is discussing with family. Presently she is not able to meet her nutritional needs. Only ate a small portion of breakfast today. On Friday, they will decide on feeding tube. She does not seem to be able to make up her mind. (2) Pneumonia: With possible left lower lobe infiltrate seen on chest x-ray though not typical location may be concern for aspiration given her marked swallowing impairment. She has not required any more oxygen than her normal 3 L. - Covered for gram-negative pneumonia with Rocephin completed 7 days total last dose on 03/27/20. - No indication of recurrent pneumonia at this time. (3) Elevated troponin: Troponin mildly elevated upon admission. Troponin may be elevated due to demand ischemia could be from brain injury no suspected acute coronary syndrome in this patient. No type 2 NTSEMI. - Continue Plavix (4) Acute ischemic cerebrovascular accident (CVA) involving left middle cerebral artery territory: With recent large territory left MCA acute ischemic CVA last admission with resultant right-sided hemiparesis (although patient can grossly move right sided at this time) and right facial droop with expressive aphasia. - CT head on 03/20 with evolving stroke in the same area. - Plavix as above (5) Combined systolic and diastolic heart failure: With chronic combined systolic and diastolic CHF with most recent EF being 20-25% as well as with RV dysfunction. - Continue beta-alis & ACEi with hold parameters. (6) Closed left hip fracture: Patient had a closed hip fracture, previously deemed non-operative by Dr. Razo in December and feels that she would not be a good operative candidate, will have pain control and care with movement, has prn pain medication ordered. (7) Atrial fibrillation: In atrial fibrillation here and has a known history of such with refusal of anticoagulation in the past. - Rate controlled with metoprolol tartrate and digoxin - HR is running low at times (50s), so beta-alis occasionally held per parameters. Today HR is in the 60s. (8) Hypertension: Blood pressure today is 140/90. - Continue beta-alis and ACEi as above (9) Elevated bilirubin: Bilirubin was mildly elevated to 3.8 on 03/14, but now down to 0.8. - No inpatient needs (10) Venous stasis dermatitis of both lower extremities: Chronic. - Holding diuretics - No need for wound care evaluation at this time (11) Hypoxia: Improved with diuresis, now back to 2 L NC. - No longer on diuretics (12) DVT prophylaxis: Lovenox 40 mg SQ daily Admission and Anticipated Discharge Date Admission Date: March 20, 2020 Subjective Unable to talk. Attempting to eat lunch, but not going very well. Review of Systems Review of Systems: Unobtainable due to cognitive status and Unobtainable due to reduced consciousness Physical Exam Constitutional: WD/WN, vitals as above Eyes: EOM intact bilaterally; no conjunctival abnormality ENMT: external ear and nose normal, oropharynx normal Neck: trachea midline, no thyromegaly normal visual inspection Respiratory: normal respiratory effort, lungs clear to auscultation no respiratory distress Cardiovascular: RRR, no murmur, no edema Gastrointestinal (Abdomen): Inspection/Auscultation: abdomen normal to inspection; abdomen not distended Musculoskeletal: no cyanosis or clubbing, extremities motor strength 5/5 Skin: no rashes, warm and dry Neurologic: moves all extremities and awake Psychiatric: Orientation: alert and cooperative Speech: + mute Affect: + tearful affect Results & Data Results & Data ([facility]) Vital Signs (Past 12 Hours) Vital Signs Temp Pulse Resp BP Pulse Ox 04/01/20 15:03 36.5 C 62 18 142/87 H 95 04/01/20 07:27 36.5 C 85 18 152/84 H 98 PG Care Time/CCT Total # of Minutes Spent Total Time Spent with Patient: Total time spent is greater than 50% in coordination of care (as documented) at patient's floor/unit and/or counseling patient: Coding Level of Care Code 49302 Subseq Hosp Care Lvl 2 Diagnoses Acute metabolic encephalopathy G93.41 Pneumonia J18.9 Elevated troponin R79.89 Acute ischemic cerebrovascular accident (CVA) involving left middle cerebral artery territory I63.512 Combined systolic and diastolic heart failure I50.40 Closed left hip fracture S72.002A Atrial fibrillation I48.91 Hypertension I10 Elevated bilirubin R17 Venous stasis dermatitis of both lower extremities I87.2 Hypoxia R09.02 DVT prophylaxis Z29.9
[2020-04-01] MEDS: DIGOXIN 0.125 MG/2.5 ML UDP NG SCH (16:08)
[2020-04-01] MEDS: FIBERSOURCE HN 1.2 CAL 1000 ML BAG NG SCH (19:27)
[2020-04-02] MEDS: MoRPHine SULFATE 2 MG/ML CARP IV PRN ×4 (02:37→21:14)
[2020-04-02] MEDS: CLOPIDOGREL BISULFATE 75 MG TAB PEG SCH (07:36)
[2020-04-02] MEDS: lisinopriL 5 MG TAB PO SCH (07:36)
[2020-04-02] MEDS: ACETAMINOPHEN SOLN 650 MG/20.3 ML UDC NG PRN ×2 (07:36→15:55)
[2020-04-02] MEDS: METOPROLOL TARTRATE 25 MG TAB PO SCH ×2 (07:36→21:18)
[2020-04-02] MEDS: ENOXAPARIN INJ 40 MG/0.4 ML SYR SQ SCH (14:19)
--- NOTE | 2020-04-02 14:53 | Hospitalist Progress Note ---
Date of Service April 02, 2020 Assessment & Plan (1) Acute metabolic encephalopathy: Acute metabolic encephalopathy, contributed to by possible aspiration or gram negative pneumonia in the setting of recent large left MCA territory ischemic CVA that is progressively evolving on head CT here on admission. AMS and unresponsiveness due to sequelae of recent cerebral infarction. - Patient continues to have unsafe swallowing evaluations added Coresafe feeding on 03/24 with tolerance of escalation of feeding. - According to family continue wishes for full support and full code. - Seen by PROPERTY COORDINATOR on 03/27 with plan for advancing diet. - On 03/28, she is doing better, but still afraid of eating or drinking. PROPERTY COORDINATOR spent time explaining this is a skill that must be re-learned. Will see how eating goes over the next few days. - Will discuss with son about PEG tube. I do not feel she will be able to continue to support her nutrition and hydration needs without one. = I have discussed this with the son on several occasions, most recently on 04/01. I straightforwardly said to him that his mother would not be able to meet her nutritional needs without the PEG tube. Palliative care also said it this bluntly as well. He defers at this time to speak with family, and I called and left a message on the weekend. Liane continues to be unable to give me an answer. When I plainly and loudly tell her she will need a PEG tube to get a dequate nutrition, she becomes tearful and tries to tell me something, but will not give a nod/shake or yes/no to indicate a decision. At this point, I have reached a standstill until this decision is made as we cannot discharge her to [facility] (which she clearly nods yes that she wants) with an NG tube, but cannot pull the NG tube unless we move into a palliative/comfort approach. - I think that we need to extend a "comfort care" exception to our visitor policy and have her family come see her. I feel like they are not truly grasping how debilitated their mother is, and possibly once they interact in person will be able to better understand the situation and what Liane's life will be like in the future. (2) Pneumonia: With possible left lower lobe infiltrate seen on chest x-ray though not typical location may be concern for aspiration given her marked swallowing impairment. She has not required any more oxygen than her normal 3 L. - Covered for gram-negative pneumonia with Rocephin completed 7 days total last dose on 03/27/20. - No indication of recurrent pneumonia at this time. (3) Elevated troponin: Troponin mildly elevated upon admission. Troponin may be elevated due to demand ischemia could be from brain injury no suspected acute coronary syndrome in this patient. No type 2 NTSEMI. - Continue Plavix (4) Acute ischemic cerebrovascular accident (CVA) involving left middle cerebral artery territory: With recent large territory left MCA acute ischemic CVA last admission with resultant right-sided hemiparesis (although patient can grossly move right sided at this time) and right facial droop with expressive aphasia. - CT head on 03/20 with evolving stroke in the same area. - Plavix as above (5) Combined systolic and diastolic heart failure: With chronic combined systolic and diastolic CHF with most recent EF being 20-25% as well as with RV dysfunction. - Continue beta-alis & ACEi with hold parameters. - Remains euvolemic, likely due to poor PO intake. Weight remains ~70 kg. (6) Closed left hip fracture: Patient had a closed hip fracture, previously deemed non-operative by Dr. Razo in December and feels that she would not be a good operative candidate, will have pain control and care with movement, has prn pain medication ordered. (7) Atrial fibrillation: In atrial fibrillation here and has a known history of such with refusal of anticoagulation in the past. - Rate controlled with metoprolol tartrate and digoxin - HR is running low at times (50s), so beta-alis occasionally held per parameters. Today HR is in the 70s. (8) Hypertension: Blood pressure today is 175/90. - Continue beta-alis and ACEi as above (9) Elevated bilirubin: Bilirubin was mildly elevated to 3.8 on 03/14, but now down to 0.8. - No inpatient needs (10) Venous stasis dermatitis of both lower extremities: Chronic. - Holding diuretics - No need for wound care evaluation at this time (11) Hypoxia: Improved with diuresis, now back to 2 L NC. - No longer on diuretics (12) DVT prophylaxis: Lovenox 40 mg SQ daily Admission and Anticipated Discharge Date Admission Date: March 20, 2020 Subjective Unable to tell. She attempts to speak in response to my questions, but can only say "Gael Briceno. Oh, Gael Briceno." Review of Systems Review of Systems: Unobtainable due to cognitive status Physical Exam Constitutional: WD/WN, vitals as above Eyes: EOM intact bilaterally; no conjunctival abnormality ENMT: external ear and nose normal, oropharynx normal Neck: trachea midline, no thyromegaly normal visual inspection Respiratory: normal respiratory effort, lungs clear to auscultation no respiratory distress Cardiovascular: RRR, no murmur, no edema Gastrointestinal (Abdomen): Inspection/Auscultation: abdomen normal to inspection; abdomen not distended Musculoskeletal: no cyanosis or clubbing, extremities motor strength 5/5 Skin: no rashes, warm and dry Neurologic: moves all extremities and awake Psychiatric: Orientation: alert and cooperative Speech: + mute Results & Data Results & Data ([facility]) Vital Signs (Past 12 Hours) Vital Signs Temp Pulse Resp BP Pulse Ox 04/02/20 08:21 36.6 C 78 18 177/90 H 94 PG Care Time/CCT Total # of Minutes Spent Total Time Spent with Patient: Total time spent is greater than 50% in coordination of care (as documented) at patient's floor/unit and/or counseling patient: Coding Level of Care Code 79829 Subseq Hosp Care Lvl 2 Diagnoses Acute metabolic encephalopathy G93.41 Pneumonia J18.9 Elevated troponin R79.89 Acute ischemic cerebrovascular accident (CVA) involving left middle cerebral artery territory I63.512 Combined systolic and diastolic heart failure I50.40 Closed left hip fracture S72.002A Atrial fibrillation I48.91 Hypertension I10 Elevated bilirubin R17 Venous stasis dermatitis of both lower extremities I87.2 Hypoxia R09.02 DVT prophylaxis Z29.9
[2020-04-02] MEDS: DIGOXIN 0.125 MG/2.5 ML UDP NG SCH (15:55)
[2020-04-02] MEDS: FIBERSOURCE HN 1.2 CAL 1000 ML BAG NG SCH (19:53)
[2020-04-03] MEDS: MoRPHine SULFATE 2 MG/ML CARP IV PRN ×4 (02:10→20:12)
[2020-04-03 05:02] LABS: Hematocrit (blood only) 40.3 % (37-47); Hemoglobin 12.9 g/dL (12.0-16.0); Mean Corpuscular Hemoglobin 31.4 pg (25-34); Mean Corpuscular Volume 98.1 fL (80-100); Mean Platelet Volume 9.5 fL (7.4-10.4); Platelet Count 240 K/uL (130-400); RDW Coefficient of Variation 13.7 % (11.5-14.5); RDW Standard Deviation 48.6 fL (36.4-46.3); Red Blood Count 4.11 M/uL (4.2-5.4); White Blood Count 8.47 K/uL (4.8-10.8)
[2020-04-03 05:30] LABS: BUN Creatinine Ratio 27.3 (10-20); Calcium 9.2 mg/dl (8.5-10.1); Creatinine Clr Calc Pharmacy 72.7 ml/min; Est GFR (African American) 101.3; Est GFR (Non-African American) 87.4; Magnesium 2.1 mg/dl (1.8-2.4)
[2020-04-03 05:31] LABS: Phosphorus 3.4 mg/dl (2.5-4.9)
[2020-04-03] MEDS: CLOPIDOGREL BISULFATE 75 MG TAB PEG SCH (08:14)
[2020-04-03] MEDS: lisinopriL 5 MG TAB PO SCH (08:14)
[2020-04-03] MEDS: METOPROLOL TARTRATE 25 MG TAB PO SCH ×2 (08:15→20:48)
[2020-04-03] MEDS: ENOXAPARIN INJ 40 MG/0.4 ML SYR SQ SCH (14:26)
[2020-04-03] MEDS: DIGOXIN 0.125 MG/2.5 ML UDP NG SCH (15:59)
[2020-04-03] MEDS: FIBERSOURCE HN 1.2 CAL 1000 ML BAG NG SCH (20:13)
--- NOTE | 2020-04-03 22:49 | Hospitalist Progress Note ---
Date of Service April 03, 2020 Assessment & Plan (1) Acute metabolic encephalopathy: Acute metabolic encephalopathy, contributed to by possible aspiration or gram negative pneumonia in the setting of recent large left MCA territory ischemic CVA that is progressively evolving on head CT here on admission. AMS and unresponsiveness due to sequelae of recent cerebral infarction. - Patient continues to have unsafe swallowing evaluations added Coresafe feeding on 03/24 with tolerance of escalation of feeding. - According to family continue wishes for full support and full code. - Seen by LIME KILN AND RECAUSTICIZING OPERATOR on 03/27 with plan for advancing diet. - On 03/28, she is doing better, but still afraid of eating or drinking. LIME KILN AND RECAUSTICIZING OPERATOR spent time explaining this is a skill that must be re-learned. Will see how eating goes over the next few days. - Will discuss with son about PEG tube. = Discussion with son on several occasions, most recently on 04/01. It was straightforwardly said to him that his mother would not be able to meet her nutritional needs without the PEG tube. Palliative care also said it this bluntly as well. He defers at this time to speak with family. Liane continues to be unable to give me an answer. At this point, I have reached a standstill until this decision is made as we cannot discharge her to [facility] (which she clearly nods yes that she wants) with an NG tube, but cannot pull the NG tube unless we move into a palliative/comfort approach. - I think that we need to extend a "comfort care" exception to our visitor policy and have her family come see her. I feel like they are not truly grasping how debilitated their mother is, and possibly once they interact in person will be able to better understand the situation and what Liane's life will be like in the future. Meeting will be done on Friday (2) Pneumonia: With possible left lower lobe infiltrate seen on chest x-ray though not typical location may be concern for aspiration given her marked swallowing im pairment. She has not required any more oxygen than her normal 3 L. - Covered for gram-negative pneumonia with Rocephin completed 7 days total last dose on 03/27/20. - No indication of recurrent pneumonia at this time. (3) Elevated troponin: Troponin mildly elevated upon admission. Troponin may be elevated due to demand ischemia could be from brain injury no suspected acute coronary syndrome in this patient. No type 2 NTSEMI. - Continue Plavix (4) Acute ischemic cerebrovascular accident (CVA) involving left middle cerebral artery territory: With recent large territory left MCA acute ischemic CVA last admission with resultant right-sided hemiparesis (although patient can grossly move right sided at this time) and right facial droop with expressive aphasia. - CT head on 03/20 with evolving stroke in the same area. - Plavix as above (5) Combined systolic and diastolic heart failure: With chronic combined systolic and diastolic CHF with most recent EF being 20-25% as well as with RV dysfunction. - Continue beta-alis & ACEi with hold parameters. - Remains euvolemic, likely due to poor PO intake. Weight remains ~70 kg. (6) Closed left hip fracture: Patient had a closed hip fracture, previously deemed non-operative by Dr. Razo in December and feels that she would not be a good operative candidate, will have pain control and care with movement, has prn pain medication ordered. (7) Atrial fibrillation: In atrial fibrillation here and has a known history of such with refusal of anticoagulation in the past. - Rate controlled with metoprolol tartrate and digoxin - HR is running low at times (50s), so beta-alis occasionally held per parameters. Today HR is in the 80s. (8) Hypertension: Blood pressure today is at goal. - Continue beta-alis and ACEi as above (9) Elevated bilirubin: Bilirubin was mildly elevated to 3.8 on 03/14, but now down to 0.8. - No inpatient needs (10) Venous stasis dermatitis of both lower extremities: Chronic. - Holding diuretics - No need for wound care evaluation at this time (11) Hypoxia: Improved with diuresis, now back to 2 L NC. - No longer on diuretics (12) DVT prophylaxis: Lovenox 40 mg SQ daily Admission and Anticipated Discharge Date Admission Date: March 20, 2020 Subjective Patient does not verbalize any new complaints. Review of Systems Review of Systems: All systems reviewed & are unremarkable except as noted in HPI & below Physical Exam Physical Exam: Constitutional: WD/WN, vitals as above Eyes: EOM intact bilaterally; no conjunctival abnormality ENMT: external ear and nose normal, oropharynx normal Neck: trachea midline, no thyromegaly normal visual inspection Respiratory: normal respiratory effort, lungs clear to auscultation no respiratory distress Cardiovascular: RRR, no murmur, no edema Gastrointestinal (Abdomen): Inspection/Auscultation: abdomen normal to inspection; abdomen not distended Musculoskeletal: no cyanosis or clubbing, extremities motor strength 5/5 Skin: no rashes, warm and dry Neurologic: moves all extremities and awake Psychiatric: Orientation: alert and cooperative Speech: + mute Results & Data Results & Data ([facility]) Vital Signs (Past 12 Hours) Vital Signs Pulse Resp BP Pulse Ox 04/03/20 15:24 70 16 149/89 H 98 PG Care Time/CCT Total # of Minutes Spent Total Time Spent with Patient: Total time spent is greater than 50% in coordination of care (as documented) at patient's floor/unit and/or counseling patient: Coding Level of Care Code 26459 Subseq Hosp Care Lvl 3 Diagnoses Acute metabolic encephalopathy G93.41 Pneumonia J18.9 Elevated troponin R79.89 Acute ischemic cerebrovascular accident (CVA) involving left middle cerebral artery territory I63.512 Combined systolic and diastolic heart failure I50.40 Closed left hip fracture S72.002A Atrial fibrillation I48.91 Hypertension I10 Elevated bilirubin R17 Venous stasis dermatitis of both lower extremities I87.2 Hypoxia R09.02 DVT prophylaxis Z29.9 Time Spent (min) 35
[2020-04-04] MEDS: MoRPHine SULFATE 2 MG/ML CARP IV PRN ×2 (04:12→12:16)
[2020-04-04] MEDS ORDERED: HYDROmorphone INJ 0.5 MG/0.5 ML SYR IV STA (06:09)
[2020-04-04] MEDS: CLOPIDOGREL BISULFATE 75 MG TAB PEG SCH (08:22)
[2020-04-04] MEDS: lisinopriL 5 MG TAB PO SCH (08:23)
[2020-04-04] MEDS: METOPROLOL TARTRATE 25 MG TAB PO SCH ×2 (08:23→21:30)
[2020-04-04] MEDS: ENOXAPARIN INJ 40 MG/0.4 ML SYR SQ SCH (14:37)
[2020-04-04] MEDS: ACETAMINOPHEN SOLN 650 MG/20.3 ML UDC NG PRN (16:04)
--- NOTE | 2020-04-04 16:09 | Palliative Care Progress Note ---
Date of Service April 04, 2020 Assessment & Plan (1) Goals of care, counseling/discussion: -Pt is a 70 year old female patient with PMH HTN, A fib with RVR, severe LV dysfunction with EF 20-25% on echo this February, RV dysfunction, visual impairment, hyperlipidemia, inoperable left hip fracture in Oct of this year and venous stasis ulcers, was just discharged on 03/18 after suffering a right CVA on 03/14. Staff at the facility called 911 the a.m. of 03/20 when patient was found to be unresponsive. CT scan showed a large, evolving left MCA infarct. Patient had right-sided hemiparesis and expressive aphasia during her last admission-these were improving. Patient returned to the [facility] for rehab on 03/18. Patient continued to refuse anticoagulation for her A. fib, she did agree to switch from aspirin to Plavix and start a low-dose statin. Her A. fib was controlled with digoxin and metoprolol. Multiple discussions with patient as well as family regarding PEG tube and CODE STATUS. -Discussed with family her evolving stroke i.e. meaning it is expanding as well as high potential for further strokes. -Patient has been living at the [facility] since her hospitalization with the hip fracture this past October. Patient is a unique individual with very non- conventional approach to her health care. Patient known to refuse meds at times-refused AC during her last admission, did agree to switching from ASA to Plavix and starting low-dose statin last admission. -On several previous admissions, patient has stated that she would want her son Genesis to be main contact/decision maker, but she refused to do any POA paperwork. She has a son Nahun who she also trusts. she did not want her two local daughters and son to make decisions for her. She has a total of 8 children. -Continued to attempt conversations with patient regarding regarding her wishes -unable to assess her wishes given her severe expressive aphasia -Spoke with 5 of her 8 children at bedside today regarding goals of care, CODE STATUS and treatment options. (2) Acute ischemic cerebrovascular accident (CVA) involving left middle cerebral artery territory: (3) Hemiparesis: (4) Expressive aphasia: (5) Atrial fibrillation with rapid ventricular response: (6) Edema: Subjective Family meeting held at patient's bedside, present were patient's son,Genesis ( POA), daughters Liane and Aleisha, other sons Corby and Panchito Discussed at length with family patient's current condition with extension of her prior stroke, she has in the past refused anticoagulation. Patient has periods of being awake and alert, expressive aphasia, dysphagia, -unable to take enough p.o. to sustain herself. GREY GOODS TESTER has been working with patient diligently, she continues to have a right facial droop with drooling. Discussed at length pros and cons of placing a surgical PEG tube including risk of stroke extension, risk of aspiration as well as possibility the patient may not tolerate tube feeds. Also discussed having patient return to the [facility] with comfort feeding under hospice care. Discussed with family that she is likely to continue to have extension of her current stroke or new strokes given her A. fib and no AC. Discussed that any improvement would be evident by now as patient has been hospitalized now for 14 days with no improvement in her p.o. intake. Son, Genesis, did state that he noticed she did not appear hungry when he tried to feed her. Discussed options of placing a feeding tube and having patient return to the [facility] with or without hospice. If they decide not to place a feeding tube, the only way patient could return to the [facility] and stay there for comfort would be under hospice care. Family stated they would discuss the options and give us an answer regarding surgical PEG tube tomorrow. Review of Systems Review of Systems: Other ROS unable to obtain due to expressive aphasia, patient appears comfortable Physical Exam Physical Exam: Patient awake and alert, no acute distress. Patient attempting to communicate-severe expressive aphasia. HEENT: EOMI, right facial droop with drooling, coresafe feeding tube in place Respirations: Clear breath sounds on exam CV: Regular rate, decreasing lower extremity edema Abdomen: Soft, nontender Extremities left lower extremity externally rotated due to fracture, right sided weakness Neuro: Awake and alert, right-sided weakness slightly improved from admission, right facial droop, expressive aphasia Results & Data Vital Signs (Past 12 Hours) Vital Signs Temp Pulse Resp BP Pulse Ox 04/04/20 07:41 97.9 F 71 18 148/73 H 98 PG Care Time/CCT Total # of Minutes Spent Total Time Spent with Patient: Total time spent 65 minutes with greater than 50% of the time spent at bedside discussing patient's current prognosis, condition, treatment options as well as goals of care. Collaborated with attending physic nat Prolonged Care Time Prolonged Care Time: Yes Total Prolonged Care Time: 30 Coding Level of Care Code 00288 Subseq Hosp Care Lvl 3 Diagnoses Goals of care, counseling/discussion Z71.89 Acute ischemic cerebrovascular accident (CVA) involving left middle cerebral artery territory I63.512 Hemiparesis G81.90 Expressive aphasia R47.01 Atrial fibrillation with rapid ventricular response I48.91 Edema R60.9 Edema type: unspecified Additional Codes Prolonged Care Time - Prolonged Care Time: Yes ([id number]) Time Spent (min) 65 Critical Care Time Prolonged Care Time Prolonged Care Time: Yes Total Prolonged Care Time: 30 65 (1) Edema Edema type: unspecified Qualified Code(s): R60.9 - Edema, unspecified
[2020-04-04] MEDS: DIGOXIN 0.125 MG/2.5 ML UDP NG SCH (16:11)
[2020-04-04] MEDS: FIBERSOURCE HN 1.2 CAL 1000 ML BAG NG SCH (19:36)
--- NOTE | 2020-04-04 22:17 | Hospitalist Progress Note ---
Date of Service April 04, 2020 Assessment & Plan (1) Acute metabolic encephalopathy: Acute metabolic encephalopathy, contributed to by possible aspiration or gram negative pneumonia in the setting of recent large left MCA territory ischemic CVA that is progressively evolving on head CT here on admission. AMS and unresponsiveness due to sequelae of recent cerebral infarction. - Patient continues to have unsafe swallowing evaluations added Coresafe feeding on 03/24 with tolerance of escalation of feeding. - According to family continue wishes for full support and full code. - Seen by OPERATIONS ACCOUNTANT on 03/27 with plan for advancing diet. - On 03/28, she is doing better, but still afraid of eating or drinking. OPERATIONS ACCOUNTANT spent time explaining this is a skill that must be re-learned. Will see how eating goes over the next few days. - Will discuss with son about PEG tube. = Discussion with son on several occasions, most recently on 04/01. It was straightforwardly said to him that his mother would not be able to meet her nutritional needs without the PEG tube. Palliative care also said it this bluntly as well. He defers at this time to speak with family. Liane continues to be unable to give me an answer. Family had meeting with palliative care. Ultimately will have discussion with family and decide if peg tube will be placed vs no peg tube. They will decide if patient will be comfort measures or not. (2) Pneumonia: With possible left lower lobe infiltrate seen on chest x-ray though not typical location may be concern for aspiration given her marked swallowing impairment. She has not required any more oxygen than her normal 3 L. - Covered for gram-negative pneumonia with Rocephin completed 7 days total last dose on 03/27/20. - No indication of recurrent pneumonia at this time. (3) Elevated troponin: Troponin mildly elevated upon admission. Troponin may be elevated due to demand ischemia could be from brain injury no suspected acute coronary syndrome in this patient. No type 2 NTSEMI. - Continue Plavix (4) Acute ischemic cerebrovascular accident (CVA) involving left middle cerebral artery territory: With recent large territory left MCA acute ischemic CVA last admission with resultant right-sided hemiparesis (although patient can grossly move right sided at this time) and right facial droop with expressive aphasia. - CT head on 03/20 with evolving stroke in the same area. - Plavix as above (5) Combined systolic and diastolic heart failure: With chronic combined systolic and diastolic CHF with most recent EF being 20-25% as well as with RV dysfunction. - Continue beta-alis & ACEi with hold parameters. - Remains euvolemic, likely due to poor PO intake. Weight remains ~70 kg. (6) Closed left hip fracture: Patient had a closed hip fracture, previously deemed non-operative by Dr. Razo in December and feels that she would not be a good operative candidate, will have pain control and care with movement, has prn pain medication ordered. (7) Atrial fibrillation: In atrial fibrillation here and has a known history of such with refusal of anticoagulation in the past. - Rate controlled with metoprolol tartrate and digoxin - HR is running low at times (50s), so beta-alis occasionally held per parameters. Today HR is in the 80s. (8) Hypertension: Blood pressure today is at goal. - Continue beta-alis and ACEi as above (9) Elevated bilirubin: Bilirubin was mildly elevated to 3.8 on 03/14, but now down to 0.8. - No inpatient needs (10) Venous stasis dermatitis of both lower extremities: Chronic. - Holding diuretics - No need for wound care evaluation at this time (11) Hypoxia: Improved with diuresis, now back to 2 L NC. - No longer on diuretics (12) DVT prophylaxis: Lovenox 40 mg SQ daily Admission and Anticipated Discharge Date Admission Date: March 20, 2020 Subjective 70 yo female reports no new symptoms. Mainly nonverbal. Review of Systems Review of Systems: All systems reviewed & are unremarkable except as noted in HPI & below and Unobtainable due to cognitive status Physical Exam Physical Exam: Constitutional: WD/WN, vitals as above Eyes: EOM intact bilaterally; no conjunctival abnormality ENMT: external ear and nose normal, oropharynx normal Neck: trachea midline, no thyromegaly normal visual inspection Respiratory: normal respiratory effort, lungs clear to auscultation no respiratory distress Cardiovascular: RRR, no murmur, no edema Gastrointestinal (Abdomen): Inspection/Auscultation: abdomen normal to insp ection; abdomen not distended Musculoskeletal: no cyanosis or clubbing, extremities motor strength 5/5 Skin: no rashes, warm and dry Neurologic: moves all extremities and awake Psychiatric: Orientation: alert and cooperative Speech: + mute Results & Data Results & Data ([facility]) Vital Signs (Past 12 Hours) Vital Signs Temp Pulse Resp BP Pulse Ox 04/04/20 15:33 36.6 C 71 18 136/101 H 98 PG Care Time/CCT Total # of Minutes Spent Total Time Spent with Patient: Total time spent is greater than 50% in coordination of care (as documented) at patient's floor/unit and/or counseling patient: Coding Level of Care Code 72170 Subseq Hosp Care Lvl 2 Diagnoses Acute metabolic encephalopathy G93.41 Pneumonia J18.9 Elevated troponin R79.89 Acute ischemic cerebrovascular accident (CVA) involving left middle cerebral artery territory I63.512 Combined systolic and diastolic heart failure I50.40 Closed left hip fracture S72.002A Atrial fibrillation I48.91 Hypertension I10 Elevated bilirubin R17 Venous stasis dermatitis of both lower extremities I87.2 Hypoxia R09.02 DVT prophylaxis Z29.9 Time Spent (min) 25
[2020-04-05] MEDS: MoRPHine SULFATE 2 MG/ML CARP IV PRN ×4 (00:20→17:19)
[2020-04-05] MEDS: CLOPIDOGREL BISULFATE 75 MG TAB PEG SCH (08:47)
[2020-04-05] MEDS: METOPROLOL TARTRATE 25 MG TAB PO SCH ×3 (08:47→23:59)
[2020-04-05] MEDS: lisinopriL 5 MG TAB PO SCH (08:47)
--- NOTE | 2020-04-05 13:44 | Palliative Care Progress Note ---
Date of Service April 05, 2020 Assessment & Plan (1) Goals of care, counseling/discussion: -Pt is a 70 year old female patient with PMH HTN, A fib with RVR, severe LV dysfunction with EF 20-25% on echo this February, RV dysfunction, visual impairment, hyperlipidemia, inoperable left hip fracture in Oct of this year and venous stasis ulcers, was just discharged on 03/18 after suffering a right CVA on 03/14. Staff at the facility called 911 the a.m. of 03/20 when patient was found to be unresponsive. CT scan showed a large, evolving left MCA infarct. Patient had right-sided hemiparesis and expressive aphasia during her last admission-these were improving. Patient returned to the [facility] for rehab on 03/18. Patient continued to refuse anticoagulation for her A. fib, she did agree to switch from aspirin to Plavix and start a low-dose statin. Her A. fib was controlled with digoxin and metoprolol. -I walked by the patients room and she was moaning with her eyes closed and guarded with her hands clasping onto each guardrail. -Nursing aware and Morphine administered PRN. -Patient has been hemodynamically stable. -Call to patients sonGenesis who requested to call back within 10 minutes to discuss family decision regarding PEG tube placement. -Patient has a coresafe and also has been utilizing some po with pureed orders. Per nursing, patient is unsafe eating. Discussed to use nursing judgement for eating and hold food when appropriate. Patient meds administered through core- safe. -Multiple discussions with patient as well as family regarding PEG tube and CODE STATUS. -I spoke again on the phone with the patients sonGenesis and the patients , and two other family members on the line. -The family has decided to forgo a PEG tube placement and would like her to be in "God's hands" when it is time. -They are ok with continuing tube feedings through the coresafe at this time, but do understand that this is not a residential solution. -Again, NO PEG TUBE placement at the request of the family. -Patient family does not have a Hospice preference upon return to [facility], but does want hospice in place for her to return. -I discussed with Vickie WILDE in case management who will follow up and place referrals. -Hospitalist to discuss discharge planning. Once pain is controlled, and patient is stable, look towards discharge. -For now, patient family wants her to remain a FULL CODE. This is a big transition for the family, they do understand the risks of comfort feedings and a full code status. Will continue to evolve this conversation. -PPS: 20% (2) Acute ischemic cerebrovascular accident (CVA) involving left middle cerebral artery territory: (3) Hemiparesis: (4) Expressive aphasia: (5) Atrial fibrillation with rapid ventricular response: (6) Edema: Subjective Patient with active moaning from the doorway, holding onto each guardrail Patient with persistent left hip pain Patient with aphagia See A/P for further details Review of Systems Review of Systems: ROS unable to obtain due to expressive aphasia, patient appears uncomfortable Physical Exam Constitutional: WD/WN, vitals as above + ill appearing and + lethargic Eyes: + anicteric sclerae and EOM intact bilaterally; no conjunctival abnormality and + no PERRL (Pupils are equally round but both are minimally reactive to light) ENMT: external ear and nose normal, oropharynx normal Neck: trachea midline, no thyromegaly normal visual inspection Respiratory: normal respiratory effort, lungs clear to auscultation no respiratory distress Cardiovascular: RRR, no murmur, no edema Rate/Rhythm: regular rate and + irregularly irregular Heart Sounds: no murmur Extremities: + edema (1-2+ pitting edema of the bilateral legs with thickened skin and chronic venous stasis changes) Chest (Breasts): Chest: normal inspection of chest Gastrointestinal (Abdomen): normal bowel sounds, soft, nontender, no hepatosplenomegaly Inspection/Auscultation: abdomen normal to inspection; abdomen not distended Musculoskeletal: no cyanosis or clubbing, extremities motor strength 5/5 Extremities: extremities normal to inspection; no cyanosis and no clubbing Skin: no rashes, warm and dry + lesion (Ichthyosis bilateral legs) Neurologic: moves all extremities, + focal motor deficit (Right-sided flaccid paralysis, does voluntarily move her left arm up and down during my interview) and awake Speech / Cognition: + expressive aphasia Psychiatric: Orientation: alert and cooperative Affect: + tearful affect Lymphatic: no lymphedema Results & Data Vital Signs (Past 12 Hours) Vital Signs Temp Pulse Resp BP Pulse Ox 04/05/20 07:45 36.4 C L 55 L 20 113/69 96 PG Care Time/CCT Total # of Minutes Spent Total Time Spent with Patient: Total time spent is greater than 50% in community health coordinator rdination of care (as documented) at patient's floor/unit and/or counseling patient: 35 Coding Level of Care Code 17524 Subseq Hosp Care Lvl 3 Diagnoses Goals of care, counseling/discussion Z71.89 Acute ischemic cerebrovascular accident (CVA) involving left middle cerebral artery territory I63.512 Hemiparesis G81.90 Expressive aphasia R47.01 Atrial fibrillation with rapid ventricular response I48.91 Edema R60.9 Edema type: unspecified Time Spent (min) 35 Time Spent Midlevel Total time spent 35 minutes with > 50% of that time spent assessing the patient, discussing goals of care and plans with family. (1) Edema Edema type: unspecified Qualified Code(s): R60.9 - Edema, unspecified
[2020-04-05] MEDS: DIGOXIN 0.125 MG/2.5 ML UDP NG SCH (15:28)
[2020-04-05] MEDS: ENOXAPARIN INJ 40 MG/0.4 ML SYR SQ SCH (15:28)
[2020-04-05] MEDS: FIBERSOURCE HN 1.2 CAL 1000 ML BAG NG SCH (19:58)
--- NOTE | 2020-04-05 20:53 | Communication Note ---
Date of Service: April 05, 2020 Notified by nursing that pt spit out water while her coresafe was being flushed. A KUB and chest XR was ordered to ensure there was no obstruction and that there was correct placement of the tube. On evaluation of imaging, tube appeared to be placed correctly. A new order was placed for a new tube. Resident Activity Tracking Resident Involvement: [employer] Coverage Note Care Provided: Adult Hospital Medicine
--- NOTE | 2020-04-05 23:14 | Hospitalist Progress Note ---
Date of Service April 05, 2020 Assessment & Plan (1) Acute metabolic encephalopathy: Acute metabolic encephalopathy, contributed to by possible aspiration or gram negative pneumonia in the setting of recent large left MCA territory ischemic CVA that is progressively evolving on head CT here on admission. AMS and unresponsiveness due to sequelae of recent cerebral infarction. - Patient continues to have unsafe swallowing evaluations added Coresafe feeding on 03/24 with tolerance of escalation of feeding. - According to family continue wishes for full support and full code. - Seen by DAYCARE PROVIDER on 03/27 with plan for advancing diet. - On 03/28, she is doing better, but still afraid of eating or drinking. DAYCARE PROVIDER spent time explaining this is a skill that must be re-learned. Will see how eating goes over the next few days. - Will discuss with son about PEG tube. = Discussion with son on several occasions, most recently on 04/01. It was straightforwardly said to him that his mother would not be able to meet her nutritional needs without the PEG tube. Palliative care also said it this bluntly as well. He defers at this time to speak with family. Liane continues to be unable to give me an answer. Family had meeting with palliative care. Will keep patient full code, family decided to forego peg tube. Will transtion to hospice at discharge. Will hold further diet. (2) Pneumonia: With possible left lower lobe infiltrate seen on chest x-ray though not typical location may be concern for aspiration given her marked swallowing impairment. She has not required any more oxygen than her normal 3 L. - Covered for gram-negative pneumonia with Rocephin completed 7 days total last dose on 03/27/20. - No indication of recurrent pneumonia at this time. (3) Elevated troponin: Troponin mildly elevated upon admission. Troponin may be elevated due to demand ischemia could be from brain injury no suspected acute coronary syndrome in this patient. No type 2 NTSEMI. - Continue Plavix (4) Acute ischemic cerebrovascular accident (CVA) involving left middle cerebral artery territory: With recent large territory left MCA acute ischemic CVA last admission with resultant right-sided hemiparesis (although patient can grossly move right sided at this time) and right facial droop with expressive aphasia. - CT head on 03/20 with evolving stroke in the same area. - Plavix as above (5) Combined systolic and diastolic heart failure: With chronic combined systolic and diastolic CHF with most recent EF being 20-25% as well as with RV dysfunction. - Continue beta-alis & ACEi with hold parameters. - Remains euvolemic, likely due to poor PO intake. Weight remains ~70 kg. (6) Closed left hip fracture: Patient had a closed hip fracture, previously deemed non-operative by Dr. Razo in December and feels that she would not be a good operative candidate, will have pain control and care with movement, has prn pain medication ordered. (7) Atrial fibrillation: In atrial fibrillation here and has a known history of such with refusal of anticoagulation in the past. - Rate controlled with metoprolol tartrate and digoxin - HR is running low at times (50s), so beta-alis occasionally held per parameters. Today HR is in the 80s. (8) Hypertension: Blood pressure today is at goal. - Continue beta-alis and ACEi as above (9) Elevated bilirubin: Bilirubin was mildly elevated to 3.8 on 03/14, but now down to 0.8. - No inpatient needs (10) Venous stasis dermatitis of both lower extremities: Chronic. - Holding diuretics - No need for wound care evaluation at this time (11) Hypoxia: Improved with diuresis, now back to 2 L NC. - No longer on diuretics (12) DVT prophylaxis: Lovenox 40 mg SQ daily Admission and Anticipated Discharge Date Admission Date: March 20, 2020 Subjective Patient is non verbal. Review of Systems Review of Systems: All systems reviewed & are unremarkable except as noted in HPI & below Physical Exam Physical Exam: Constitutional: WD/WN, vitals as above Eyes: EOM intact bilaterally; no conjunctival abnormality ENMT: external ear and nose normal, oropharynx normal Neck: trachea midline, no thyromegaly normal visual inspection Respiratory: normal respiratory effort, lungs clear to auscultation no respiratory distress Cardiovascular: RRR, no murmur, no edema Gastrointestinal (Abdomen): Inspection/Auscultation: abdomen normal to inspection; abdomen not distended Musculoskeletal: no cyanosis or clubbing, extremities motor strength 5/5 Skin: no rashes, warm and dry Neurologic: moves all extremities and awake Psychiatric: Orientation: alert and cooperative Speech: + mute PG Care Time/CCT Total # of Minutes Spent Total Time Spent with Patient: Total time spent is greater than 50% in coordination of care (as documented) at patient's floor/unit and/or counseling patient: Coding Level of Care Code 67479 Subseq Hosp Care Lvl 2 Diagnoses Acute metabolic encephalopathy G93.41 Pneumonia J18.9 Elevated troponin R79.89 Acute ischemic cerebrovascular accident (CVA) involving left middle cerebral artery territory I63.512 Combined systolic and diastolic heart failure I50.40 Closed left hip fracture S72.002A Atrial fibrillation I48.91 Hypertension I10 Elevated bilirubin R17 Venous stasis dermatitis of both lower extremities I87.2 Hypoxia R09.02 DVT prophylaxis Z29.9 Time Spent (min) 25
[2020-04-06] MEDS: FIBERSOURCE HN 1.2 CAL 1000 ML BAG NG SCH ×2 (00:21→19:31)
[2020-04-06] MEDS: MoRPHine SULFATE 2 MG/ML CARP IV PRN ×2 (04:18→17:32)
--- NOTE | 2020-04-06 07:03 | XRay Report ---
KUB CLINICAL HISTORY: check tube placement COMPARISON STUDY: KUB April 05, 2020. FINDINGS: The tip of the feeding tube projects over the gastroesophageal junction. There has been sli ght advancement since prior exam. The lumbar spine as pattern is unremarkable. Cardiomegaly is noted. There is a trace right pleural effusion. IMPRESSION: Tip of feeding tube projects over the gastroesophageal junction. Further advancement is recommended. ACT 112: Negative or not required by law. Electronically signed by: Will Gonzales M.D. 04/06/2020 7:01 AM
--- NOTE | 2020-04-06 07:57 | XRay Report ---
KUB HISTORY: Acute generalized abdominal pain with possible obstruction r/o obstruction COMPARISON: KUB 03/24/2020. FINDINGS: An enteric tube is noted with distal tip projected over the midline lower chest the expecte d location of the distal esophagus. Advancement with follow-up imaging is needed. Moderate fecal rete ntion. No renal calculi. No ureteral calculi. No pneumoperitoneum or pneumatosis. Left femoral neck fracture with displacement.. IMPRESSION: Tip of feeding tube projects over the distal esophagus. Advancement with follow-up imaging is needed. ACT 112: Negative or not required by law. The above report was generated using voice recognition software. It may contain grammatical, syntax o r spelling errors. Electronically signed by: Bulmaro Salazar M.D. 04/06/2020 7:56 AM
--- NOTE | 2020-04-06 08:21 | XRay Report ---
XR chest 1V portable CLINICAL HISTORY: r/o obstruction COMPARISON STUDY: Chest CT October 19, 2015. Chest radiograph March 21, 2020. FINDINGS: Tip of feeding tube projected the gastroesophageal junction. There is no pneumothorax. Smal l right pleural effusion is noted. Moderate cardiomegaly is noted. Pulmonary vascular congestion has slightly improved. Left basilar opacity has slightly improved. There is underlying emphysema. IMPRESSION: 1. Pulmonary vascular congestion, slightly improved since prior exam. 2. Interval decrease in left basilar opacity. 3. Trace right pleural effusion. 4. Cardiomegaly. ACT 112: Negative or not required by law. Electronically signed by: Will Gonzales M.D. 04/06/2020 8:19 AM
--- NOTE | 2020-04-06 09:06 | XRay Report ---
KUB CLINICAL HISTORY: check tube placement COMPARISON STUDY: KUB April 06, 2020 at 6:42 AM. FINDINGS: The tip of the feeding tube is within the body of the stomach. Visualized bowel gas pattern is normal. Cardiomegaly is incidentally noted. IMPRESSION: Tip of feeding tube within the body of the stomach. ACT 112: Negative or not required by law. Electronically signed by: Will Gonzales M.D. 04/06/2020 9:05 AM
[2020-04-06] MEDS: lisinopriL 5 MG TAB PO SCH (10:02)
[2020-04-06] MEDS: METOPROLOL TARTRATE 25 MG TAB PO SCH ×2 (10:03→21:15)
[2020-04-06] MEDS: CLOPIDOGREL BISULFATE 75 MG TAB PEG SCH (10:03)
[2020-04-06] MEDS: ENOXAPARIN INJ 40 MG/0.4 ML SYR SQ SCH (15:20)
--- NOTE | 2020-04-06 15:42 | Palliative Care Progress Note ---
Date of Service April 06, 2020 Assessment & Plan (1) Goals of care, counseling/discussion: -Pt is a 70 year old female patient with PMH HTN, A fib with RVR, severe LV dysfunction with EF 20-25% on echo this February, RV dysfunction, visual impairment, hyperlipidemia, inoperable left hip fracture in Oct of this year and venous stasis ulcers, was just discharged on 03/18 after suffering a right CVA on 03/14. Staff at the facility called 911 the a.m. of 03/20 when patient was found to be unresponsive. CT scan showed a large, evolving left MCA infarct. Patient had right-sided hemiparesis and dense expressive aphasia. Patient refused anticoagulation, during her last admission, for her A. fib, she did agree to switch from aspirin to Plavix and start a low-dose statin. Her rate is controlled with digoxin and metoprolol. -Multiple discussions with patient as well as family regarding PEG tube and CODE STATUS. -I spoke again on the phone with the patients son, Genesis and his father, Neal Lewis-answered questions regarding discharge with course a feeding tube. Mr. Neal Lewis was not present during prolonged family meeting. -The family has decided to forgo a PEG tube placement and would like her to be in "God's hands" when it is time. -They are ok with continuing tube feedings through the [facility] until she is ready for discharge. -Patient family does not have a Hospice preference upon return to [facility], but does want hospice in place for her to return. -Case management is making her referral for hospice. -For now, patient family wants her to remain a FULL CODE. This is a big transition for the family, they do understand the risks of comfort feedings and a full code status. Will continue to evolve this conversation. -PPS: 20% (2) Acute ischemic cerebrovascular accident (CVA) involving left middle cerebral artery territory: (3) Hemiparesis: (4) Expressive aphasia: (5) Atrial fibrillation with rapid ventricular response: (6) Edema: Subjective Patient easily aroused with voice, no acute distress. Patient has core safe NG tube in place. Appears comfortable. Received a voice message from Neal Lewis as well as from her son Genesis - Mr. Lewis did not understand that she could not return to the [facility] with NG feeds. Spoke with both of them via phone-plan is to move forward with continuing the tube feeds until she either pulls the tube out or is transferred back to the [facility]. Patient is for transfer to the [facility] with hospice. Review of Systems Review of Systems: Unable to obtain due to expressive aphasia Physical Exam Physical Exam: PE: Appears comfortable, no acute distress HEENT: EOMI, NG tube in place Respirations: Unlabored, clear breath sounds CV: Regular rate, decreased lower extremity edema Abdomen: Soft, nontender Neuro: Right hemiparesis, dense expressive aphasia, dysphasia, right facial droo p Results & Data Vital Signs (Past 12 Hours) Vital Signs Temp Pulse Resp BP Pulse Ox 04/06/20 15:26 97.9 F 80 18 170/93 H 94 04/06/20 07:15 97.9 F 79 18 145/94 H 92 PG Care Time/CCT Total # of Minutes Spent Total Time Spent with Patient: Total time spent 35 minutes with greater than 50% of the time spent at bedside assessing patient's current level of comfort as well as current status, as well as phone conversation with family. Coding Level of Care Code 57173 Subseq Hosp Care Lvl 3 Diagnoses Goals of care, counseling/discussion Z71.89 Acute ischemic cerebrovascular accident (CVA) involving left middle cerebral artery territory I63.512 Hemiparesis G81.90 Expressive aphasia R47.01 Atrial fibrillation with rapid ventricular response I48.91 Edema R60.9 Edema type: unspecified Time Spent (min) 35 (1) Edema Edema type: unspecified Qualified Code(s): R60.9 - Edema, unspecified
[2020-04-06] MEDS: DIGOXIN 0.125 MG/2.5 ML UDP NG SCH (15:51)
--- NOTE | 2020-04-06 22:41 | Hospitalist Progress Note ---
Date of Service April 06, 2020 Assessment & Plan (1) Acute metabolic encephalopathy: Acute metabolic encephalopathy, contributed to by possible aspiration or gram negative pneumonia in the setting of recent large left MCA territory ischemic CVA that is progressively evolving on head CT here on admission. AMS and unresponsiveness due to sequelae of recent cerebral infarction. - Patient continues to have unsafe swallowing evaluations added Coresafe feeding on 03/24 with tolerance of escalation of feeding. - According to family continue wishes for full support and full code. - Seen by SCREWHEAD POLISHER on 03/27 with plan for advancing diet. - On 03/28, she is doing better, but still afraid of eating or drinking. SCREWHEAD POLISHER spent time explaining this is a skill that must be re-learned. Will see how eating goes over the next few days. - Will discuss with son about PEG tube. = Discussion with son on several occasions, most recently on 04/01. It was straightforwardly said to him that his mother would not be able to meet her nutritional needs without the PEG tube. Palliative care also said it this bluntly as well. He defers at this time to speak with family. Liane continues to be unable to give me an answer. Family had meeting with palliative care. Will keep patient full code, family decided to forego peg tube. Will transition to hospice at discharge. Will hold further diet by mouth Awaiting Covid testing. (2) Pneumonia: With possible left lower lobe infiltrate seen on chest x-ray though not typical location may be concern for aspiration given her marked swallowing impairment. She has not required any more oxygen than her normal 3 L. - Covered for gram-negative pneumonia with Rocephin completed 7 days total last dose on 03/27/20. - No indication of recurrent pneumonia at this time. (3) Elevated troponin: Troponin mildly elevated upon admission. Troponin may be elevated due to demand ischemia could be from brain injury no suspected acute coronary syndrome in this patient. No type 2 NTSEMI. - Continue Plavix (4) Acute ischemic cerebrovascular accident (CVA) involving left middle cerebral artery territory: With recent large territory left MCA acute ischemic CVA last admission with resultant right-sided hemiparesis (although patient can grossly move right sided at this time) and right facial droop with expressive aphasia. - CT head on 03/20 with evolving stroke in the same area. - Plavix as above (5) Combined systolic and diastolic heart failure: With chronic combined systolic and diastolic CHF with most recent EF being 20-25% as well as with RV dysfunction. - Continue beta-lais & ACEi with hold parameters. - Remains euvolemic, likely due to poor PO intake. Weight remains ~70 kg. (6) Closed left hip fracture: Patient had a closed hip fracture, previously deemed non-operative by Dr. Razo in December and feels that she would not be a good operative candidate, will have pain control and care with movement, has prn pain medication ordered. (7) Atrial fibrillation: In atrial fibrillation here and has a known history of such with refusal of anticoagulation in the past. - Rate controlled with metoprolol tartrate and digoxin - HR is running low at times (50s), so beta-alis occasionally held per parameters. Today HR is in the 80s. (8) Hypertension: Blood pressure today is at goal. - Continue beta-alis and ACEi as above (9) Elevated bilirubin: Bilirubin was mildly elevated to 3.8 on 03/14, but now down to 0.8. - No inpatient needs (10) Venous stasis dermatitis of both lower extremities: Chronic. - Holding diuretics - No need for wound care evaluation at this time (11) Hypoxia: Improved with diuresis, now back to 2 L NC. - No longer on diuretics (12) DVT prophylaxis: Lovenox 40 mg SQ daily Admission and Anticipated Discharge Date Admission Date: March 20, 2020 Subjective 70 yo female reports no new symptoms. Family is agreeable to discharge. Review of Systems Review of Systems: Unobtainable due to cognitive status Physical Exam Physical Exam: Constitutional: WD/WN, vitals as above Eyes: EOM intact bilaterally; no conjunctival abnormality ENMT: external ear and nose normal, oropharynx normal Neck: trachea midline, no thyromegaly normal visual inspection Respiratory: normal respiratory effort, lungs clear to auscultation no respiratory distress Cardiovascular: RRR, no murmur, no edema Gastrointestinal (Abdomen): Inspection/Auscultation: abdomen normal to inspection; abdomen not distended Musculoskeletal: no cyanosis or clubbing, extremities motor strength 5/5 Skin: no rashes, warm and dry Neurologic: moves all extremities and awake Psychiatric: Orientation: alert and cooperative Speech: + mute Results & Data Results & Data ([facility]) Vital Signs (Past 12 Hours) Vital Signs Temp Pulse Pulse Resp BP Pulse Ox 04/06/20 21:08 80 16 147/90 H 94 04/06/20 15:26 36.6 C 80 18 170/93 H 94 PG Care Time/CCT Total # of Minutes Spent Total Time Spent with Patient: Total time spent is greater than 50% in coordination of care (as documented) at patient's floor/unit and/or counseling patient: Coding Level of Care Code 63908 Subseq Hosp Care Lvl 2 Diagnoses Acute metabolic encephalopathy G93.41 Pneumonia J18.9 Elevated troponin R79.89 Acute ischemic cerebrovascular accident (CVA) involving left middle cerebral artery territory I63.512 Combined systolic and diastolic heart failure I50.40 Closed left hip fracture S72.002A Atrial fibrillation I48.91 Hypertension I10 Elevated bilirubin R17 Venous stasis dermatitis of both lower extremities I87.2 Hypoxia R09.02 DVT prophylaxis Z29.9
[2020-04-06] MEDS ORDERED: ALBUT/IPRATROP 3MG/0.5MG NEB 3 ML VIAL NEB STA (23:59)
[2020-04-07] MEDS ORDERED: methylPREDNISolone 125 MG in SYRINGE 0 ML IV STA (00:04)
[2020-04-07 00:21] LABS: Basophils # (auto) 0.02 K/uL (0-0.2); Basophils % (auto) 0.2 %; Eosinophils # (auto) 0.05 K/uL (0-0.5); Eosinophils % (auto) 0.6 %; Hematocrit (blood only) 40.1 % (37-47); Hemoglobin 12.3 g/dL (12.0-16.0); Immature Granulocytes # (auto) 0.01 K/uL (0.00-0.02); Immature Granulocytes % (auto) 0.1 %; Lymphocytes # (auto) 1.43 K/uL (1.2-3.4); Lymphocytes % (auto) 17.7 %; Mean Corpuscular Hemoglobin 30.7 pg (25-34); Mean Platelet Volume 9.8 fL (7.4-10.4); Monocytes # (auto) 0.61 K/uL (0.11-0.59); Monocytes % (auto) 7.5 %; Neutrophils # (auto) 5.98 K/uL (1.4-6.5); Neutrophils % (auto) 73.9 %; Platelet Count 214 K/uL (130-400); RDW Coefficient of Variation 13.8 % (11.5-14.5); Red Blood Count 4.01 M/uL (4.2-5.4)
[2020-04-07 00:24] LABS: Base Excess ABG 4.4 mEq/L (-9-1.8); HCO3 ABG 28 mmol/L (19-24); Oxygen Saturation ABG 98.5 % (90-95); PCO2 ABG 39 mmHg (35-46); PO2 ABG 117 mmHg (80-95); pH ABG 7.48 (7.35-7.45)
[2020-04-07 00:25] LABS: Mean Corpuscular Hgb Conc 30.7 g/dL (32-36)
[2020-04-07 00:26] LABS: Allen Test POS (Pos)
[2020-04-07 00:44] LABS: BUN Creatinine Ratio 27.7 (10-20); Calcium 9.4 mg/dl (8.5-10.1); Creatinine Clr Calc Pharmacy 65.9 ml/min; Est GFR (African American) 92.3; Est GFR (Non-African American) 79.6; Potassium 3.6 mmol/L (3.5-5.1)
[2020-04-07 00:56] LABS: Troponin I 0.063 ng/ml (0-0.045)
[2020-04-07] MEDS ORDERED: FUROSEMIDE 20 MG in SYRINGE 0 ML IV ONE (01:06)
[2020-04-07] MEDS ORDERED: FUROSEMIDE 40 MG/4 ML VIAL IV ONE ×2 (01:30→04:11)
--- NOTE | 2020-04-07 04:17 | Communication Note ---
Date of Service: April 07, 2020 Pt was a code purple overnight, having difficulty breathing requiring oxymask 2L. EKG appeared unchanged with atrial firbillation. Trop of 0.063, with noted prior elevations and current level is lowest/downtrending. Stat portable chest XR showed some pulm congestion, pt given Lasix IV 20mg stat KUB also ordered to confirm correct placement of feeding tube. Also given Solumedrol IV 125mg during the code. Pt moved to PCU/tele for continued telemetry monitoring Resident Activity Tracking Resident Involvement: Manager Operational Coverage Note Care Provided: Adult Hospital Medicine
[2020-04-07] MEDS: MoRPHine SULFATE 2 MG/ML CARP IV PRN (05:23)
--- NOTE | 2020-04-07 06:39 | XRay Report ---
KUB HISTORY: Status post placement of a feeding tube CODE PURPLE CHECK PLACEMENT NGT COMPARISON: KUB 04/06/2020 FINDINGS: A feeding tube is present with distal tip terminating in the expected location of the mid g astric body. Nonobstructive bowel gas pattern. Moderate fecal retention of the left hemicolon. No re nal calculi. No ureteral calculi. No pneumoperitoneum or pneumatosis. Cardiac megaly. Interstitial co arsening of the lung bases with costophrenic angle blunting. Probable trace right pleural effusion. P artially imaged left femoral fracture. IMPRESSION: Distal tip of the feeding tube terminates in the expected location of the mid gastric body. ACT 112: Negative or not required by law. The above report was generated using voice recognition software. It may contain grammatical, syntax o r spelling errors. Electronically signed by: Bulmaro Salazar M.D. 04/07/2020 6:38 AM
--- NOTE | 2020-04-07 06:43 | XRay Report ---
XR chest 1V portable HISTORY: 70 years-old Female possible aspiration acute shortness of breath with possible aspiration COMPARISON: KUB of same day, chest radiograph 04/05/2020 TECHNIQUE: Portable AP view of the chest FINDINGS: Cardiomegaly with pulmonary vascular congestion. Calcified plaque the thoracic aortic arch. Trace rig ht pleural effusion. No pneumothorax. Mild hyperinflation. Minimal bibasilar densities suggest probab le atelectasis. Degenerative changes of the shoulders and spine. Loose body of the left subscapularis recess. Partially imaged feeding tube. IMPRESSION: 1. Cardiomegaly with pulmonary vascular congestion. 2. Trace right pleural effusion. 3. Unchanged minimal bibasilar densities suggestive of probable atelectasis. ACT 112: Negative or not required by law. The above report was generated using voice recognition software. It may contain grammatical, syntax o r spelling errors. Electronically signed by: Bulmaro Salazar M.D. 04/07/2020 6:41 AM
[2020-04-07] MEDS: lisinopriL 5 MG TAB PO SCH (07:53)
[2020-04-07] MEDS: METOPROLOL TARTRATE 25 MG TAB PO SCH ×2 (07:54→21:40)
[2020-04-07] MEDS: CLOPIDOGREL BISULFATE 75 MG TAB PEG SCH (07:54)
[2020-04-07] MEDS: ACETAMINOPHEN SOLN 650 MG/20.3 ML UDC NG PRN (08:14)
[2020-04-07] MEDS: ENOXAPARIN INJ 40 MG/0.4 ML SYR SQ SCH (17:11)
[2020-04-07] MEDS: DIGOXIN 0.125 MG/2.5 ML UDP NG SCH (17:12)
--- NOTE | 2020-04-07 19:15 | Electrocardiogram Report ---
Test Reason : Blood Pressure : / mmHG Vent. Rate : 114 BPM Atrial Rate : 182 BPM P-R Int : 000 ms QRS Dur : 086 ms QT Int : 278 ms P-R-T Axes : 000 -34 127 degrees QTc Int : 383 ms Poor data quality, interpretation may be adversely affected Atrial fibrillation with rapid ventricular response with premature ventricular or aberrantly conducte d complexes Left axis deviation Minimal voltage criteria for LVH, may be normal variant Abnormal ECG When compared with ECG of 21-MAR-2020 20:44, QRS axis Shifted left ST no longer elevated in Anterior leads ST now depressed in Lateral leads T wave inversion now evident in Lateral leads Confirmed by Maycol Conklin ([id number]) on 04/07/2020 7:15:35 PM Referred By: Bebo Corea Confirmed By:Albaro Conklin
[2020-04-07] MEDS: FIBERSOURCE HN 1.2 CAL 1000 ML BAG NG SCH (20:17)
--- NOTE | 2020-04-07 22:42 | Hospitalist Progress Note ---
Date of Service April 07, 2020 Assessment & Plan (1) Acute metabolic encephalopathy: Acute metabolic encephalopathy, contributed to by possible aspiration or gram negative pneumonia in the setting of recent large left MCA territory ischemic CVA that is progressively evolving on head CT here on admission. AMS and unresponsiveness due to sequelae of recent cerebral infarction. - Patient continues to have unsafe swallowing evaluations added Coresafe feeding on 03/24 with tolerance of escalation of feeding. - According to family continue wishes for full support and full code. - Seen by DIGITAL MEDIA MANAGER on 03/27 with plan for advancing diet. - On 03/28, she is doing better, but still afraid of eating or drinking. DIGITAL MEDIA MANAGER spent time explaining this is a skill that must be re-learned. Will see how eating goes over the next few days. - Will discuss with son about PEG tube. = Discussion with son on several occasions, most recently on 04/01. It was straightforwardly said to him that his mother would not be able to meet her nutritional needs without the PEG tube. Palliative care also said it this bluntly as well. He defers at this time to speak with family. Liane continues to be unable to give me an answer. Family had meeting with palliative care. Will keep patient full code, family decided to forego peg tube. Will transition to hospice at discharge. Will hold further diet by mouth Awaiting Covid testing. Now in PCU on oxymask, plan is still to discharge on hospice. (2) Pneumonia: With possible left lower lobe infiltrate seen on chest x-ray though not typical location may be concern for aspiration given her marked swallowing impairment. She has not required any more oxygen than her normal 3 L. - Covered for gram-negative pneumonia with Rocephin completed 7 days total last dose on 03/27/20. - No indication of recurrent pneumonia at this time. (3) Elevated troponin: Troponin mildly elevated upon admission. Troponin may be elevated due to demand ischemia could be from brain injury no suspected acute coronary syndrome in this patient. No type 2 NTSEMI. - Continue Plavix (4) Acute ischemic cerebrovascular accident (CVA) involving left middle cerebral artery territory: With recent large territory left MCA acute ischemic CVA last admission with resultant right-sided hemiparesis (although patient can grossly move right sided at this time) and right facial droop with expressive aphasia. - CT head on 03/20 with evolving stroke in the same area. - Plavix as above (5) Combined systolic and diastolic heart failure: With chronic combined systolic and diastolic CHF with most recent EF being 20-25% as well as with RV dysfunction. - Continue beta-alis & ACEi with hold parameters. - Remains euvolemic, likely due to poor PO intake. Weight remains ~70 kg. (6) Closed left hip fracture: Patient had a closed hip fracture, previously deemed non-operative by Dr. Razo in December and feels that she would not be a good operative candidate, will have pain control and care with movement, has prn pain medication ordered. (7) Atrial fibrillation: In atrial fibrillation here and has a known history of such with refusal of anticoagulation in the past. - Rate controlled with metoprolol tartrate and digoxin - HR is running low at times (50s), so beta-alis occasionally held per parameters. Today HR is in the 80s. (8) Hypertension: Blood pressure today is at goal. - Continue beta-alis and ACEi as above (9) Elevated bilirubin: Bilirubin was mildly elevated to 3.8 on 03/14, but now down to 0.8. - No inpatient needs (10) Venous stasis dermatitis of both lower extremities: Chronic. - Holding diuretics - No need for wound care evaluation at this time (11) Hypoxia: Improved with diuresis, now back to 2 L NC. - No longer on diuretics (12) DVT prophylaxis: Lovenox 40 mg SQ daily Admission and Anticipated Discharge Date Admission Date: March 20, 2020 Subjective Patient overnight was found to be hypoxic. Was transferred to PCU as she is still a full code. Patient appears comfortable on oxymask. Review of Systems Review of Systems: Unobtainable due to cognitive status Physical Exam Physical Exam: Constitutional: WD/WN, vitals as above Eyes: EOM intact bilaterally; no conjunctival abnormality ENMT: external ear and nose normal, oropharynx normal Neck: trachea midline, no thyromegaly normal visual inspection Respiratory: normal respiratory effort, lungs clear to auscultation no respiratory distress Cardiovascular: RRR, no murmur, no edema Gastrointestinal (Abdomen): Inspection/Auscultation: abdomen normal to inspection; abdomen not distended Musculoskeletal: no cyanosis or clubbing, extremities motor strength 5/5 Skin: no rashes, warm and dry Neurologic: moves all extremities and awake Psychiatric: Orientation: alert and cooperative Speech: + mute Results & Data Results & [facility] ([facility]) Vital Signs (Past 12 Hours) Vital Signs Temp Pulse Resp BP Pulse Ox 04/07/20 19:25 36.7 C 99 H 16 143/90 H 98 04/07/20 16:13 36.9 C 91 H 20 149/91 H 99 04/07/20 11:05 36.3 C L 96 H 19 161/93 H 98 PG Care Time/CCT Total # of Minutes Spent Total Time Spent with Patient: Total time spent is greater than 50% in coordination of care (as documented) at patient's floor/unit and/or counseling patient: Coding Level of Care Code 68206 Subseq Hosp Care Lvl 2 Diagnoses Acute metabolic encephalopathy G93.41 Pneumonia J18.9 Elevated troponin R79.89 Acute ischemic cerebrovascular accident (CVA) involving left middle cerebral artery territory I63.512 Combined systolic and diastolic heart failure I50.40 Closed left hip fracture S72.002A Atrial fibrillation I48.91 Hypertension I10 Elevated bilirubin R17 Venous stasis dermatitis of both lower extremities I87.2 Hypoxia R09.02 DVT prophylaxis Z29.9 Time Spent (min) 25
[2020-04-08] MEDS: METOPROLOL TARTRATE 25 MG TAB PO SCH ×2 (09:28→20:21)
[2020-04-08] MEDS: CLOPIDOGREL BISULFATE 75 MG TAB PEG SCH (09:29)
[2020-04-08] MEDS: lisinopriL 5 MG TAB PO SCH (09:29)
[2020-04-08] MEDS: ENOXAPARIN INJ 40 MG/0.4 ML SYR SQ SCH (15:43)
[2020-04-08] MEDS: DIGOXIN 0.125 MG/2.5 ML UDP NG SCH (15:44)
[2020-04-08] MEDS: MoRPHine SULFATE 2 MG/ML CARP IV PRN ×2 (16:52→22:12)
[2020-04-08] MEDS: FIBERSOURCE HN 1.2 CAL 1000 ML BAG NG SCH (20:20)
--- NOTE | 2020-04-08 23:04 | Hospitalist Progress Note ---
Date of Service April 08, 2020 Assessment & Plan (1) Acute metabolic encephalopathy: Acute metabolic encephalopathy, contributed to by possible aspiration or gram negative pneumonia in the setting of recent large left MCA territory ischemic CVA that is progressively evolving on head CT here on admission. AMS and unresponsiveness due to sequelae of recent cerebral infarction. - Patient continues to have unsafe swallowing evaluations added Coresafe feeding on 03/24 with tolerance of escalation of feeding. - According to family continue wishes for full support and full code. - Seen by PROJECT PRODUCTION ENGINEER on 03/27 with plan for advancing diet. - On 03/28, she is doing better, but still afraid of eating or drinking. PROJECT PRODUCTION ENGINEER spent time explaining this is a skill that must be re-learned. Will see how eating goes over the next few days. - Will discuss with son about PEG tube. = Discussion with son on several occasions, most recently on 04/01. It was straightforwardly said to him that his mother would not be able to meet her nutritional needs without the PEG tube. Palliative care also said it this bluntly as well. He defers at this time to speak with family. Liane continues to be unable to give me an answer. Family had meeting with palliative care. Will keep patient full code, family decided to forego peg tube. Will transition to hospice at discharge. Will hold further diet by mouth covid test negative Now in PCU on oxymask, plan is still to discharge on hospice. placement on hold as auth is pending. (2) Pneumonia: With possible left lower lobe infiltrate seen on chest x-ray though not typical location may be concern for aspiration given her marked swallowing impairment. She has not required any more oxygen than her normal 3 L. - Covered for gram-negative pneumonia with Rocephin completed 7 days total last dose on 03/27/20. - No indication of recurrent pneumonia at this time. (3) Elevated troponin: Troponin mildly elevated upon admission. Troponin may be elevated due to demand ischemia could be from brain injury no suspected acute coronary syndrome in this patient. No type 2 NTSEMI. - Continue Plavix (4) Acute ischemic cerebrovascular accident (CVA) involving left middle cerebral artery territory: With recent large territory left MCA acute ischemic CVA last admission with resultant right-sided hemiparesis (although patient can grossly move right sided at this time) and right facial droop with expressive aphasia. - CT head on 03/20 with evolving stroke in the same area. - Plavix as above (5) Combined systolic and diastolic heart failure: With chronic combined systolic and diastolic CHF with most recent EF being 20-25% as well as with RV dysfunction. - Continue beta-alis & ACEi with hold parameters. - Remains euvolemic, likely due to poor PO intake. Weight remains ~70 kg. (6) Closed left hip fracture: Patient had a closed hip fracture, previously deemed non-operative by Dr. Razo in December and feels that she would not be a good operative candidate, will have pain control and care with movement, has prn pain medication ordered. (7) Atrial fibrillation: In atrial fibrillation here and has a known history of such with refusal of anticoagulation in the past. - Rate controlled with metoprolol tartrate and digoxin - HR is running low at times (50s), so beta-alis occasionally held per parameters. Today HR is in the 80s. (8) Hypertension: Blood pressure today is at goal. - Continue beta-alis and ACEi as above (9) Elevated bilirubin: Bilirubin was mildly elevated to 3.8 on 03/14, but now down to 0.8. - No inpatient needs (10) Venous stasis dermatitis of both lower extremities: Chronic. - Holding diuretics - No need for wound care evaluation at this time (11) Hypoxia: Improved with diuresis, now back to 2 L NC. - No longer on diuretics (12) DVT prophylaxis: Lovenox 40 mg SQ daily Admission and Anticipated Discharge Date Admission Date: March 20, 2020 Subjective 70 yo female is more awake. Does not verbalize any complaints. Review of Systems Review of Systems: All systems reviewed & are unremarkable except as noted in HPI & below Physical Exam Physical Exam: Constitutional: WD/WN, vitals as above Eyes: EOM intact bilaterally; no conjunctival abnormality ENMT: external ear and nose normal, oropharynx normal Neck: trachea midline, no thyromegaly normal visual inspection Respiratory: normal respiratory effort, lungs clear to auscultation no respiratory distress Cardiovascular: RRR, no murmur, no edema Gastrointestinal (Abdomen): Inspection/Auscultation: abdomen normal to inspection; abdomen not distended Musculoskeletal: no cyanosis or clubbing, extremities motor strength 5/5 Skin: no rashes, warm and dry Neurologic: moves all extremities and awake Psychiatric: Orientation: alert and cooperative Speech: + mute Results & Data Results & Data ([facility]) Vital Signs (Past 12 Hours) Vital Signs Temp Pulse Resp BP Pulse Ox 04/08/20 20:09 36.6 C 97 H 22 161/111 H 100 04/08/20 15:48 36.4 C L 67 23 154/95 H 97 04/08/20 12:02 36.2 C L 68 18 145/92 H 98 PG Care Time/CCT Total # of Minutes Spent Total Time Spent with Patient: Total time spent is greater than 50% in coordination of care (as documented) at patient's floor/unit and/or counseling patient: Coding Level of Care Code 97638 Subseq Hosp Care Lvl 1 Diagnoses Acute metabolic encephalopathy G93.41 Pneumonia J18.9 Elevated troponin R79.89 Acute ischemic cerebrovascular accident (CVA) involving left middle cerebral artery territory I63.512 Combined systolic and diastolic heart failure I50.40 Closed left hip fracture S72.002A Atrial fibrillation I48.91 Hypertension I10 Elevated bilirubin R17 Venous stasis dermatitis of both lower extremities I87.2 Hypoxia R09.02 DVT prophylaxis Z29.9
--- NOTE | 2020-04-09 01:27 | Communication Note ---
Date of Service: April 09, 2020 Notified that pt had heart rate dipping into the 40s with low of 35 overnight. Note states awaiting discharge with hospice, however she is still a full code. Consider re-evaluation of code status for pt comfort. Resident Activity Tracking Resident Involvement: Service Superintendent Coverage Note Care Provided: Adult Hospital Medicine
[2020-04-09] MEDS: MoRPHine SULFATE 2 MG/ML CARP IV PRN ×2 (10:13→13:00)
[2020-04-09] MEDS: lisinopriL 5 MG TAB PO SCH (10:14)
[2020-04-09] MEDS: METOPROLOL TARTRATE 25 MG TAB PO SCH (10:14)
[2020-04-09] MEDS: CLOPIDOGREL BISULFATE 75 MG TAB PEG SCH (10:14)
[2020-04-09 11:22] VITALS: BP 137/94; TEMP 97.7; O2SAT 98
[2020-04-09 12:45] VITALS: PULSE 80
[2020-04-09] MEDS ORDERED: MoRPHine SULFATE 2 MG/ML CARP IV STA (12:54)
--- NOTE | 2020-04-12 07:16 | Coding Query ---
CODING QUERY To promote full compliance with coding requirements relating to patient care, provider participation is requested in all cases of integration project manager uncertainty. Please assist us with the question(s) below: Coding Question(s): There is documentation of sequela of recent cerebral infarction as well as documentation of Acute ischemic CVA involving the left MCA territory with recent large territory left MCA acute ischemic CVA last admission and documentation of CT head on 03/20 with evolving stroke in the same area. Please specify below, in your clinical opinion, regarding CVA. (x ) This is Sequela of the recent acute ischemic left MCA CVA with NO new CVA ( ) This is a New Acute ischemic CVA of left MCA, also with Sequela of the recent CVA in the same area ( ) Other: Please Specify Physician's Response(s): Thank you Lamar Barbour Principal Diagnosis: "that condition established after study, to be chiefly responsible for occasioning the admission of the patient to the hospital for care." Co-Existing Principal Diagnosis: "when two or more diagnoses equally meet the criteria for principal diagnosis as determined by the circumstances of admission, diagnostic work up, and/or therapy provided, and the Alphabetic Index, Tabular List, or another coding guideline does not provide sequencing direction, any one of the diagnoses may be sequenced first." "When the physician has documented what appears to be a current diagnosis in the body of the record, but has not included the diagnosis in the final diagnostic statement, the physician should be asked whether the diagnosis should be added." ([facility] 2 QTR90. p3-4) VERONICA
--- NOTE | 2020-04-16 12:47 | Discharge Summary ---
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 She presents from the residential at [facility] after being noted to be unresponsive and lethargic. I was unable to obtain any history from her, but all history obtained from the ER physician. In the ER, vital signs were normal, she was in rate controlled atrial fibrillation, and was afebrile, but was found to have evidence of a UTI on urinalysis, as well as a possible left lower lobe infiltrate on chest x-ray. She was on her usual 3 L nasal cannula of oxygen. She was only responsive to sternal rub and would open her eyes and then fall back asleep for me. Her baseline since her stroke recently is apparently garbled speech but can an swer questions with nods of head yes and no. In the ER, she was given IV ceftriaxone, 1 L of IV normal saline. She will be admitted for acute metabolic encephalopathy likely secondary to UTI and possible pneumonia in the setting of recent large territory left MCA ischemic CVA. Principal Diagnosis Acute metabolic encephalopathy Discharge Exam Constitutional: WD/WN, vitals as above Eyes: EOM intact bilaterally; no conjunctival abnormality ENMT: external ear and nose normal, oropharynx normal Neck: trachea midline, no thyromegaly normal visual inspection Respiratory: normal respiratory effort, lungs clear to auscultation no respiratory distress Cardiovascular: RRR, no murmur, no edema Gastrointestinal (Abdomen): Inspection/Auscultation: abdomen normal to inspection; abdomen not distended Musculoskeletal: no cyanosis or clubbing, extremities motor strength 5/5 Skin: no rashes, warm and dry Neurologic: moves all extremities and awake Psychiatric: Orientation: alert and cooperative Speech: + mute Discharge Data Allergies Allergy/AdvReac Type Severity Reaction Status Date / Time Penicillins Allergy Unknown Unknown Verified 03/20/20 09:05 Consultations 03/20/20 11:31 ED Decision to Admit Stat 03/20/20 13:47 Consult Case Management - Discharge Planning Routine Consult Palliative Care Routine Ordered Studies 03/20/20 09:48 CT head/brain wo con Stat Hospital Course (1) Acute metabolic encephalopathy: Acute metabolic encephalopathy, contributed to by possible aspiration or gram negative pneumonia in the setting of recent large left MCA territory ischemic CVA that is progressively evolving on head CT here on admission. AMS and unresponsiveness due to sequelae of recent cerebral infarction. - Patient continues to have unsafe swallowing evaluations added Coresafe feeding on 03/24 with tolerance of escalation of feeding. - According to family continue wishes for full support and full code. - Seen by SENIOR PAYROLL ADMINISTRATOR on 03/27 with plan for advancing diet. - On 03/28, she is doing better, but still afraid of eating or drinking. SENIOR PAYROLL ADMINISTRATOR spent time explaining this is a skill that must be re-learned. Will see how eating goes over the next few days. - Will discuss with son about PEG tube. = Discussion with son on several occasions, most recently on 04/01. It was straightforwardly said to him that his mother would not be able to meet her nutritional needs without the PEG tube. Palliative care also said it this bluntly as well. He defers at this time to speak with family. Liane continues to be unable to give me an answer. Family had meeting with palliative care. Will keep patient full code, family decided to forego peg tube. Will transition to hospice at discharge (today). Will hold further diet by mouth. covid test negative (2) Pneumonia: With possible left lower lobe infiltrate seen on chest x-ray though not typical location may be concern for aspiration given her marked swallowing impairment. She has not required any more oxygen than her normal 3 L. - Covered for gram-negative pneumonia with Rocephin completed 7 days total last dose on 03/27/20. - No indication of recurrent pneumonia at this time. (3) Elevated troponin: Troponin mildly elevated upon admission. Troponin may be elevated due to demand ischemia could be from brain injury no suspected acute coronary syndrome in this patient. No type 2 NTSEMI. - Continue Plavix (4) Acute ischemic cerebrovascular accident (CVA) involving left middle cerebral artery territory: With recent large territory left MCA acute ischemic CVA last admission with resultant right-sided hemiparesis (although patient can grossly move right sided at this time) and right facial droop with expressive aphasia. - CT head on 03/20 with evolving stroke in the same area. - Plavix as above (5) Combined systolic and diastolic heart failure: With chronic combined systolic and diastolic CHF with most recent EF being 20-25% as well as with RV dysfunction. - Continue beta-alis & ACEi with hold parameters. - Remains euvolemic, likely due to poor PO intake. Weight remains ~70 kg. (6) Closed left hip fracture: Patient had a closed hip fracture, previously deemed non-operative by Dr. Razo in December and feels that she would not be a good operative candidate, will have pain control and care with movement, has prn pain medication ordered. (7) Atrial fibrillation: In atrial fibrillation here and has a known history of such with refusal of anticoagulation in the past. - Rate controlled with metoprolol tartrate and digoxin - HR is running low at times (50s), so beta-alis occasionally held per parameters. Today HR is in the 80s. (8) Hypertension: Blood pressure today is at goal. - Continue beta-alis and ACEi as above (9) Elevated bilirubin: Bilirubin was mildly elevated to 3.8 on 03/14, but now down to 0.8. - No inpatient needs (10) Venous stasis dermatitis of both lower extremities: Chronic. - Holding diuretics - No need for wound care evaluation at this time (11) Hypoxia: Improved with diuresis, now back to 2 L NC. - No longer on diuretics (12) DVT prophylaxis: Lovenox 40 mg SQ daily Total Time Total Time Spent Total Time Spent (In Minutes): 32 Total Time Includes: Examination of the Patient, Discharge Planning and Medication Reconciliation Discharge Plan Discharge Items Patient Disposition: Hospice - Medical Facility Reason For Visit: UTI, PNEUMONIA, UNRESPONSIVE Discharge Diagnosis: stroke Activity: Resume your previous activity Non-emergency contact: Primary Care Provider Call non-emergency contact if: you have any medication questions Follow-up/Referrals: Bebo Corea [Primary Care Provider] - Diet: Other - See Diet Comment Diet Comment: NPO Addtl Attending Provider Instructions: You will be discharged on hospice. AY CONSIDER CONTINUING ON METOPROLOL with small amount of apple sauce, however will defer to hospice team. Pending Studies at Discharge: No Stand-Alone Forms: My [facility] Skilled Items Patient informed of condition?: Yes DNR: Yes (being discharged on hospice) Discharge Level of Care: Skilled Communicable Disease: No Discharge Prognosis: Deteriorating Lines: None Urinary Catheter: No Medications and DC Order Prescriptions: New metoprolol tartrate 25 mg Tablet 25 mg PO BID Qty: 60 RF: 0 acetaminophen 160 mg/5 mL (5 mL) Solution 650 mg NG Q6 PRN (Reason: pain) Qty: 5 RF: 0 atropine 1 % drops 1 drops PO Q2H PRN (Reason: secretions) Qty: 15 RF: 0 morphine concentrate 100 mg/5 mL (20 mg/mL) solution 5 mg PO Q3H PRN (Reason: pain/ agitation) Qty: 30 RF: 0 Continued ondansetron HCl [Zofran] 4 mg Tablet 4 mg PO Q6H PRN (Reason: Nausea) RF: 0 Discontinued acetaminophen 325 mg Tablet 650 mg PO Q6H PRN (Reason: Pain) RF: 0 digoxin 125 mcg (0.125 mg) Tablet 0.125 mg PO DAILY@1600 Qty: 1 RF: 0 Stress Formula with Zinc Tablet 1 tab PO DAILY@0800 RF: 0 tramadol 50 mg tablet 50 mg PO Q6H PRN (Reason: Pain) RF: 0 metoprolol succinate 25 mg tablet extended release 24 hr 37.5 mg PO DAILY@0800 RF: 0 atorvastatin 20 mg Tablet 20 mg PO QAM Qty: 1 RF: 0 clopidogrel 75 mg Tablet 75 mg PO QAM Qty: 1 RF: 0 furosemide [Lasix] 40 mg Tablet 20 mg PO DAILY@0800 Qty: 0 RF: 0 potassium chloride 20 mEq tablet,ER particles/crystals 20 meq PO DAILY@0800 Qty: 0 RF: 0 Discharge Orders: Discharge Order (Routine); Ordered 04/09/20 Ordered By: Mauricio Cruz Admission Data Admit Date/Time: 03/20/20 12:01 Attending Provider: Mauricio Cruz Admit Provider: Chelsea Olivier Primary Care Provider: Bebo Corea Other Providers: Dipti Quinn Other Interventions: Discharge Summary Assessment (RN) Last Done: 04/09/20 12:40 DC Date/Time DO NOT enter until pt leaves facility: 04/09/20 13:41 Coding Level of Care Code D/C Day Management >30 mins Diagnoses Acute metabolic encephalopathy G93.41 Pneumonia J18.9 Elevated troponin R79.89 Acute ischemic cerebrovascular accident (CVA) involving left middle cerebral artery territory I63.512 Combined systolic and diastolic heart failure I50.40 Closed left hip fracture S72.002A Atrial fibrillation I48.91 Hypertension I10 Elevated bilirubin R17 Venous stasis dermatitis of both lower extremities I87.2 Hypoxia R09.02 DVT prophylaxis Z29.9
== END 2020-04-09 13:41 | disposition hospice, inpatient (51) | DRG 56 ==
LOC: ED 08:54 → SUATTDRO 12:01 → 2N 12:01 → 2S 03-21 18:58 → 3N 03-25 19:03 → 2S 04-07 01:00

== ENCOUNTER 2020-05-22 14:08 | Inpatient (IN) ==
[2020-05-22] MEDS ORDERED: DEXTROSE 50% 50 ML SYRINGE IV ONE ×3 (14:26→14:55)
[2020-05-22] MEDS ORDERED: SODIUM CHLORIDE 0.9% 1000ML 1,000 ML IV SCH (14:30)
[2020-05-22] MEDS ORDERED: CEFEPIME 2,000 MG/20 ML VIAL IV STA (14:32)
--- NOTE | 2020-05-22 14:40 | Emergency Department Note ---
Impression & Plan Sepsis, Respiratory failure, UTI (urinary tract infection), Elevated lactic acid level, Hypernatremia ED Provider Note NAME: SUZIE CHRISTIAN AGE: 70 SEX: F : 1950 ARRIVES VIA: Ambulance INFORMANT: Patient, ED PROVIDER(S): Rolo Thakur MD Chief Complaint: Altered mental status HPI: Much of the history is given from case management is well as nursing the bedside he received word from EMS. Was to complete was altered mental status. The patient does have a very complicated past medical history including dense right-sided hemiparesis from a CVA immobility secondary to inoperable hip fracture, CHF A. fib. The patient is on some supplemental oxygen. There was concern this morning during a family meeting about making the patient DNR and comfort as the patient did have an elevated sodium in the 150s. Patient did have a negative COVID at the end of March but the patient did present today with a mild fever. Patient reportedly does have a history of blindness and deafness. ROS: Unable to obtain secondary to clinical condition and acuity. Past medical history: See below Surgical history: See below Social history: See below Physical Exam: GENERAL: Ill-appearing, awakens to sternal rub, audible gurgling sounds. EYE EXAM: Normal conjunctiva. PERRL, no anisocoria and EOM's grossly intact w/o pain. NECK: Supple, no nuchal rigidity, no adenopathy, non-tender. No signs of meningismus. Transmitted upper respiratory sounds. Non-stridulous. LUNGS: Clear to auscultation. Normal chest wall mechanics. HEART: Tachycardic and irregular, no MRG. ABDOMEN: Abdomen soft, normo-active bowel sounds, no masses, no rebound or guarding. SKIN: No rashes and no bruising. : Shel[place] in place draining dark fluid. UPPER EXTREMITIES: Upper extremities are grossly normal. LOWER EXTREMITIES: Grossly normal, no edema. NEURO EXAM: Opens eyes to sternal rub, does not follow commands. Differential diagnoses: Sepsis, UTI, pneumonia, metabolic, electrolyte abnormalities, cardiac sources, intracerebral event, toxicologic, neurologic, as well as other pathologies. Course: Patient was seen and evaluated the bedside. Full history physical exam was performed. EKG: Indication: Tachycardia A. fib with RVR, rate of 127, narrow complex, occasional PVCs noted. Left axis deviation. A. fib is old. Machine is being read as undetermined rhythm but believe that this is likely A. fib given the irregularly irregular nature known history of A. fib. Imaging Studies: Radiology results as stated below per my review in the radiologist's interpretation: XR chest 1V portable HISTORY: 70 years-old Female SEPSIS acute sepsis COMPARISON: Chest radiograph 04/07/2020 TECHNIQUE: Portable AP view of the chest FINDINGS: Right medial lung apex is partially obscured by the patient's chin. Moderate cardiomegaly. Calcified plaque of the thoracic aortic arch. No pneumothorax. Small right pleural effusion with asymmetric right greater than left bibasilar consolidative opacities. Chronic interstitial coarsening with emphysema. No overt pulmonary edema. IMPRESSION: 1. Cardiomegaly without overt pulmonary edema. 2. Small right pleural effusion with right greater than left bibasilar consolidative opacities suggestive of atelectasis versus pneumonitis. 3. Emphysema with chronic interstitial coarsening. ACT 112: Negative or not required by law. The above report was generated using voice recognition software. It may contain grammatical, syntax or spelling errors. Electronically signed by: Bulmaro Salazar M.D. 05/22/2020 2:49 PM Dictated: 05/22/20 1438 Transcribed: 05/22/20 1438 Cardiac monitoring: An order was placed for continuous cardiac monitoring. The monitor shows a rate of 150 with irregularly irregular rhythm. MDM: Patient does present with concern for altered mental status. I did have a discussion with the patient's son who is the power of package line operator and then after discussion he is agreeable to the patient being DNR/DNI but would like things like IV fluids antibiotics and will trial the patient on BiPAP. Patient did have fever. No reported coronavirus cases at [facility] and the patient did have a negative cover test at the end of March prior to discharge. The patient initially did have an oxygen saturation in the 80s and was tachycardic. After being placed on BiPAP the patient's heart rate respiratory rate and O2 saturation has improved with stable vitals 120s over 80s. The patient's blood work shows a normal white counts and H&H but the patient does have significant hypernatremia lactate troponin and likely UTI. Patient was given an initial dose of IV fluids. Patient's repeat dextrose showed improvement. I did speak the on-call hospitalist Dr. Matthew expected that the patient was DNR/DNI and after discussion with family we are currently pursuing a moderate course of care with the likely need for additional palliative care consult and discussion of goals of care as an inpatient. The medicine service. Patient was ordered some additional fluids. Patient's BiPAP settings were changed over to help improve the patient's hypertension. The patient did have improvement. Patient's family was to be updated by the hospitalist Dr. Matthew. Critical Care: I have personally spent 120 minutes of critical care time in direct management of this patient. This includes bedside care, interpretation of diagnostic studies, and testing, discussion with consultants, patient, and family members, and other require inpatient management activities. This 120 minutes is in excess of all separately billable procedures. Past Med/Surg History Medical History Acute ischemic cerebrovascular accident (CVA) involving left middle cerebral artery territory (Acute) Atrial ectopy (Chronic) Atrial fibrillation Chronic wound of extremity Closed left hip fracture Combined systolic and diastolic heart failure Edema (Acute) Elevated bilirubin Hemiparesis Hyperlipemia (Chronic) Hypertension Hypoxia Macrocytosis Medical non-compliance (Acute) Non-sustained ventricular tachycardia Peripheral vascular disease Visual impairment (Chronic) Surgical History No pertinent past surgical history Family History Other No pertinent family history Social History Smoking Status: Unknown if ever smoked Cigarettes Per Day: 10; Second Hand Exposure: No; Hx Alcohol Use: No Hx Substance Use: No Preferred Language: German Communication Ability: Effective 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 Finance Required: No Beliefs That Will Affect Care: None marital status: / Current Living Situation: Care Home Current Living Situation Comment: from [facility] How many Children do You have: 8 Feels Safe at Home: Yes Allergies Allergies Allergy/AdvReac Type Severity Reaction Status Date / Time Penicillins Allergy Unknown Unknown Verified 03/20/20 09:05 Home Meds Home Medications Medication Instructions Recorded Confirmed ondansetron HCl [Zofran] 4 mg PO Q6H PRN 12/15/19 05/22/20 Lac-Hydrin 12% 1 applic TOPICAL BID 05/22/20 05/22/20 acetaminophen 650 mg GA Q4H PRN 05/22/20 05/22/20 acetaminophen [Tylenol] 650 mg PO Q6H PRN 05/22/20 05/22/20 bisacodyl [Dulcolax (bisacodyl)] 10 mg GA DAILY PRN 05/22/20 05/22/20 clopidogrel 75 mg PO QAM 05/22/20 05/22/20 haloperidol 5 mg PO QAM 05/22/20 05/22/20 lidocaine [Lidoderm] 1 patch TOPICAL DAILY 05/22/20 05/22/20 lorazepam [Ativan] 0.5 mg PO Q4H PRN 05/22/20 05/22/20 magnesium hydroxide [Milk of 30 ml PO UD PRN 05/22/20 05/22/20 Magnesia] metoprolol tartrate 12.5 mg PO BID 05/22/20 05/22/20 nystatin 1 applic TOPICAL BID 05/22/20 05/22/20 Previous Rx's Medication Instructions Recorded atropine 1 drops PO Q2H PRN #15 ml 04/09/20 morphine concentrate 5 mg PO Q3H PRN #30 ml 04/09/20 Results & Data (ED) Vital Signs Vital Signs - 24 hr 05/22/20 14:16 05/22/20 14:26 05/22/20 14:30 Temperature 39.7 C H Temperature Source Oral Pulse Rate 149 H 163 H 150 H Pulse Rate from SpO2 Sensor Pulse Rhythm Irregular Respiratory Rate 36 H 40 H 26 H Respiratory Effort / Characteristics Labored SOB on Exertion Spontaneous Short of Breath Respiratory Depth Retractive Normal Respiratory Pattern Tachypnea Regular Blood Pressure 120/78 120/78 Blood Pressure Mean 94 92 Pulse Oximetry 84 L 94 Oxygen Delivery Method Nasal Cannula Oxygen Flow Rate 2 Fraction of Inspired Oxygen 100 Sepsis Recent Fever Within 48 Hours Yes Sepsis New/Unexplained Change in Mental Status Yes Sepsis Action Taken by Nursing Physician Notified Oxygen Flow Rate - Titration 5 Fraction of Inspired Oxygen - Titration 98 05/22/20 14:45 05/22/20 15:00 05/22/20 15:10 Temperature Temperature Source Pulse Rate 138 H 133 H 136 H Pulse Rate from SpO2 Sensor 97 H 116 H 93 H Pulse Rhythm Respiratory Rate 35 H 34 H 33 H Respiratory Effort / Characteristics Respiratory Depth Respiratory Pattern Blood Pressure 128/59 L Blood Pressure Mean 81 Pulse Oximetry 99 96 94 Oxygen Delivery Method BiPAP Oxygen Flow Rate Fraction of Inspired Oxygen Sepsis Recent Fever Within 48 Hours Sepsis New/Unexplained Change in Mental Status Sepsis Action Taken by Nursing Oxygen Flow Rate - Titration Fraction of Inspired Oxygen - Titration 05/22/20 15:15 05/22/20 15:30 05/22/20 15:31 Temperature Temperature Source Pulse Rate 128 H 147 H 132 H Pulse Rate from SpO2 Sensor 77 62 96 H Pulse Rhythm Respiratory Rate 40 H 42 H 36 H Respiratory Effort / Characteristics Respiratory Depth Respiratory Pattern Blood Pressure 107/67 Blood Pressure Mean 91 Pulse Oximetry 90 90 90 Oxygen Delivery Method BiPAP BiPAP BiPAP Oxygen Flow Rate Fraction of Inspired Oxygen Sepsis Recent Fever Within 48 Hours Sepsis New/Unexplained Change in Mental Status Sepsis Action Taken by Nursing Oxygen Flow Rate - Titration Fraction of Inspired Oxygen - Titration 05/22/20 15:36 05/22/20 15:46 05/22/20 16:00 Temperature Temperature Source Pulse Rate 144 H 129 H Pulse Rate from SpO2 Sensor 71 108 H Pulse Rhythm Respiratory Rate 28 H 25 H 39 H Respiratory Effort / Characteristics Labored Respiratory Depth Respiratory Pattern Blood Pressure 101/66 106/60 Blood Pressure Mean 94 84 Pulse Oximetry 91 93 99 Oxygen Delivery Method BiPAP BiPAP BiPAP Oxygen Flow Rate 4 4 Fraction of Inspired Oxygen Sepsis Recent Fever Within 48 Hours Sepsis New/Unexplained Change in Mental Status Sepsis Action Taken by Nursing Oxygen Flow Rate - Titration Fraction of Inspired Oxygen - Titration 05/22/20 16:01 05/22/20 16:15 05/22/20 16:16 Temperature Temperature Source Pulse Rate 127 H 124 H 123 H Pulse Rate from SpO2 Sensor 93 H 106 H 102 H Pulse Rhythm Respiratory Rate 26 H 32 H 29 H Respiratory Effort / Characteristics Respiratory Depth Respiratory Pattern Blood Pressure 102/58 L Blood Pressure Mean 72 Pulse Oximetry 99 99 99 Oxygen Delivery Method BiPAP BiPAP Oxygen Flow Rate Fraction of Inspired Oxygen Sepsis Recent Fever Within 48 Hours Sepsis New/Unexplained Change in Mental Status Sepsis Action Taken by Nursing Oxygen Flow Rate - Titration Fraction of Inspired Oxygen - Titration 05/22/20 16:30 05/22/20 16:31 05/22/20 16:45 Temperature Temperature Source Pulse Rate 118 H 120 H 113 H Pulse Rate from SpO2 Sensor 71 77 72 Pulse Rhythm Respiratory Rate 17 16 27 H Respiratory Effort / Characteristics Respiratory Depth Respiratory Pattern Blood Pressure 91/48 L 67/44 L Blood Pressure Mean 80 50 Pulse Oximetry 99 98 97 Oxygen Delivery Method Oxygen Flow Rate Fraction of Inspired Oxygen Sepsis Recent Fever Within 48 Hours Sepsis New/Unexplained Change in Mental Status Sepsis Action Taken by Nursing Oxygen Flow Rate - Titration Fraction of Inspired Oxygen - Titration 05/22/20 16:49 05/22/20 16:51 05/22/20 16:52 Temperature 38.2 C H Temperature Source Oral Pulse Rate 123 H 117 H Pulse Rate from SpO2 Sensor 72 73 Pulse Rhythm Respiratory Rate 22 22 28 H Respiratory Effort / Characteristics Respiratory Depth Respiratory Pattern Blood Pressure 72/45 L 72/45 L Blood Pressure Mean 54 57 Pulse Oximetry 97 96 95 Oxygen Delivery Method BiPAP Oxygen Flow Rate 4 Fraction of Inspired Oxygen Sepsis Recent Fever Within 48 Hours Sepsis New/Unexplained Change in Mental Status Sepsis Action Taken by Nursing Oxygen Flow Rate - Titration Fraction of Inspired Oxygen - Titration 05/22/20 17:00 05/22/20 17:15 05/22/20 17:30 Temperature Temperature Source Pulse Rate 104 H 109 H 131 H Pulse Rate from SpO2 Sensor 70 86 85 Pulse Rhythm Respiratory Rate 18 17 16 Respiratory Effort / Characteristics Respiratory Depth Respiratory Pattern Blood Pressure 70/41 L 79/53 L 90/53 L Blood Pressure Mean 46 65 55 Pulse Oximetry 91 97 100 Oxygen Delivery Method Oxygen Flow Rate Fraction of Inspired Oxygen Sepsis Recent Fever Within 48 Hours Sepsis New/Unexplained Change in Mental Status Sepsis Action Taken by Nursing Oxygen Flow Rate - Titration Fraction of Inspired Oxygen - Titration 05/22/20 17:46 05/22/20 18:00 05/22/20 18:16 Temperature Temperature Source Pulse Rate 121 H 120 H 123 H Pulse Rate from SpO2 Sensor 83 114 H 91 H Pulse Rhythm Respiratory Rate 14 15 15 Respiratory Effort / Characteristics Respiratory Depth Respiratory Pattern Blood Pressure 103/72 110/66 105/70 Blood Pressure Mean 96 94 79 Pulse Oximetry 99 98 97 Oxygen Delivery Method BiPAP Oxygen Flow Rate Fraction of Inspired Oxygen Sepsis Recent Fever Within 48 Hours Sepsis New/Unexplained Change in Mental Status Sepsis Action Taken by Nursing Oxygen Flow Rate - Titration Fraction of Inspired Oxygen - Titration Home Medications Current Medication List: was personally reviewed by me Laboratory Data Attestation: I reviewed the patient's lab results. Result diagrams: 05/22/20 15:01 05/22/20 15:01 Lab Results 08/03/20 08/03/20 08/03/20 Range/Units 14:21 14:23 15:01 WBC 6.55 (4.8-10.8) K/uL RBC 4.11 L (4.2-5.4) M/uL Hgb 13.7 (12.0-16.0) g/dL Hct 41.8 (37-47) % MCV 101.7 H (80-100) fL MCH 33.3 (25-34) pg MCHC 32.8 (32-36) g/dL RDW Std Deviation 58.7 H (36.4-46.3) fL RDW Coeff of Malia 16.5 H (11.5-14.5) % Plt Count 223 (130-400) K/uL MPV 10.6 H (7.4-10.4) fL Immature Gran % (Auto) 0.2 % Neut % (Auto) 89.2 % Lymph % (Auto) 7.3 % [place] % (Auto) 3.1 % Eos % (Auto) 0.0 % Baso % (Auto) 0.2 % Neut # (Auto) 5.85 (1.4-6.5) K/uL Lymph # (Auto) 0.48 L (1.2-3.4) K/uL [place] # (Auto) 0.20 (0.11-0.59) K/uL Eos # (Auto) 0.00 (0-0.5) K/uL Baso # (Auto) 0.01 (0-0.2) K/uL Immature Gran # (Auto) 0.01 (0.00-0.02) K/uL PT (9.0-12.0) Seconds INR (0.9-1.1) APTT (21.0-31.0) Seconds PTT Ratio Sodium (136-145) mmol/L Potassium (3.5-5.1) mmol/L Chloride (98-107) mmol/L Carbon Dioxide (21-32) mmol/L Anion Gap (3-11) BUN (7-18) mg/dl Creatinine (0.6-1.2) mg/dl Est Cr Clr Drug Dosing ml/min Est GFR ( Amer) Est GFR (Non-Af Amer) BUN/Creatinine Ratio (10-20) Glucose (70-99) mg/dl POC Glucose 63 L* 62 L* (70-99) mg/dl Lactate (0.4-2.0) mmol/L Calcium (8.5-10.1) mg/dl Magnesium (1.8-2.4) mg/dl Total Bilirubin (0.2-1) mg/dl AST (15-37) U/L ALT (12-78) U/L Alkaline Phosphatase (45-117) U/L Troponin I (0-0.045) ng/ml Total Protein (6.4-8.2) gm/dl Albumin (3.4-5.0) gm/dl Globulin (2.5-4.0) gm/dl Albumin/Globulin Ratio (0.9-2) Procalcitonin (0-0.5) ng/ml Urine Color Urine Appearance (Clear) Urine pH (4.5-7.5) Ur Specific [place] (1.000-1.030) Urine Protein (Negative) Urine Glucose (UA) (Negative) Urine Ketones (Negative) Urine Blood (Negative) Urine Nitrite (Negative) Urine Bilirubin (Negative) Urine Urobilinogen (Negative) Ur Leukocyte Esterase (Negative) Urine WBC (Auto) (0-5) /hpf Urine RBC (Auto) (0-4) /hpf U Hyaline Cast (Auto) (0-5) /lpf U Epithel Cells (Auto) (0-5) /lpf Urine Bacteria (Auto) (Negative) Triple Phos Crystals (None Prsent) Urine Yeast 05/22/20 05/22/20 05/22/20 Range/Units 15:01 15:01 15:01 WBC (4.8-10.8) K/uL RBC (4.2-5.4) M/uL Hgb (12.0-16.0) g/dL Hct (37-47) % MCV (80-100) fL MCH (25-34) pg MCHC (32-36) g/dL RDW Std Deviation (36.4-46.3) fL RDW Coeff of Malia (11.5-14.5) % Plt Count (130-400) K/uL MPV (7.4-10.4) fL Immature Gran % (Auto) % Neut % (Auto) % Lymph % (Auto) % [place] % (Auto) % Eos % (Auto) % Baso % (Auto) % Neut # (Auto) (1.4-6.5) K/uL Lymph # (Auto) (1.2-3.4) K/uL [place] # (Auto) (0.11-0.59) K/uL Eos # (Auto) (0-0.5) K/uL Baso # (Auto) (0-0.2) K/uL Immature Gran # (Auto) (0.00-0.02) K/uL PT 15.8 H (9.0-12.0) Seconds INR 1.5 H (0.9-1.1) APTT 26.5 (21.0-31.0) Seconds PTT Ratio 0.9 Sodium 156 H* (136-145) mmol/L Potassium 3.8 (3.5-5.1) mmol/L Chloride 120 H (98-107) mmol/L Carbon Dioxide 25 (21-32) mmol/L Anion Gap 11.0 (3-11) BUN 23 H (7-18) mg/dl Creatinine 1.31 H (0.6-1.2) mg/dl Est Cr Clr Drug Dosing 33.0 ml/min Est GFR ( Amer) 47.0 Est GFR (Non-Af Amer) 40.6 BUN/Creatinine Ratio 17.4 (10-20) Glucose 111 H (70-99) mg/dl POC Glucose (70-99) mg/dl Lactate (0.4-2.0) mmol/L Calcium 8.7 (8.5-10.1) mg/dl Magnesium 2.2 (1.8-2.4) mg/dl Total Bilirubin 2.5 H (0.2-1) mg/dl AST 20 (15-37) U/L ALT 13 (12-78) U/L Alkaline Phosphatase 129 H (45-117) U/L Troponin I 1.380 H* (0-0.045) ng/ml Total Protein 7.1 (6.4-8.2) gm/dl Albumin 2.8 L (3.4-5.0) gm/dl Globulin 4.3 H (2.5-4.0) gm/dl Albumin/Globulin Ratio 0.7 L (0.9-2) Procalcitonin 0.73 H (0-0.5) ng/ml Urine Color Urine Appearance (Clear) Urine pH (4.5-7.5) Ur Specific [place] (1.000-1.030) Urine Protein (Negative) Urine Glucose (UA) (Negative) Urine Ketones (Negative) Urine Blood (Negative) Urine Nitrite (Negative) Urine Bilirubin (Negative) Urine Urobilinogen (Negative) Ur Leukocyte Esterase (Negative) Urine WBC (Auto) (0-5) /hpf Urine RBC (Auto) (0-4) /hpf U Hyaline Cast (Auto) (0-5) /lpf U Epithel Cells (Auto) (0-5) /lpf Urine Bacteria (Auto) (Negative) Triple Phos Crystals (None Prsent) Urine Yeast 05/22/20 05/22/20 05/22/20 Range/Units 15:01 15:12 15:48 WBC (4.8-10.8) K/uL RBC (4.2-5.4) M/uL Hgb (12.0-16.0) g/dL Hct (37-47) % MCV (80-100) fL MCH (25-34) pg MCHC (32-36) g/dL RDW Std Deviation (36.4-46.3) fL RDW Coeff of Malia (11.5-14.5) % Plt Count (130-400) K/uL MPV (7.4-10.4) fL Immature Gran % (Auto) % Neut % (Auto) % Lymph % (Auto) % [place] % (Auto) % Eos % (Auto) % Baso % (Auto) % Neut # (Auto) (1.4-6.5) K/uL Lymph # (Auto) (1.2-3.4) K/uL [place] # (Auto) (0.11-0.59) K/uL Eos # (Auto) (0-0.5) K/uL Baso # (Auto) (0-0.2) K/uL Immature Gran # (Auto) (0.00-0.02) K/uL PT (9.0-12.0) Seconds INR (0.9-1.1) APTT (21.0-31.0) Seconds PTT Ratio Sodium (136-145) mmol/L Potassium (3.5-5.1) mmol/L Chloride (98-107) mmol/L Carbon Dioxide (21-32) mmol/L Anion Gap (3-11) BUN (7-18) mg/dl Creatinine (0.6-1.2) mg/dl Est Cr Clr Drug Dosing ml/min Est GFR ( Amer) Est GFR (Non-Af Amer) BUN/Creatinine Ratio (10-20) Glucose (70-99) mg/dl POC Glucose 125 H (70-99) mg/dl Lactate 5.0 H* (0.4-2.0) mmol/L Calcium (8.5-10.1) mg/dl Magnesium (1.8-2.4) mg/dl Total Bilirubin (0.2-1) mg/dl AST (15-37) U/L ALT (12-78) U/L Alkaline Phosphatase (45-117) U/L Troponin I (0-0.045) ng/ml Total Protein (6.4-8.2) gm/dl Albumin (3.4-5.0) gm/dl Globulin (2.5-4.0) gm/dl Albumin/Globulin Ratio (0.9-2) Procalcitonin (0-0.5) ng/ml Urine Color Dark Yellow Urine Appearance Turbid A (Clear) Urine pH 8.5 H (4.5-7.5) Ur Specific [place] 1.018 (1.000-1.030) Urine Protein 2+ H (Negative) Urine Glucose (UA) Trace H (Negative) Urine Ketones Trace H (Negative) Urine Blood 3+ H (Negative) Urine Nitrite Positive A (Negative) Urine Bilirubin Negative (Negative) Urine Urobilinogen Negative (Negative) Ur Leukocyte Esterase 3+ H (Negative) Urine WBC (Auto) >30 H (0-5) /hpf Urine RBC (Auto) >30 H (0-4) /hpf U Hyaline Cast (Auto) 10-30 H (0-5) /lpf U Epithel Cells (Auto) 20-30 H (0-5) /lpf Urine Bacteria (Auto) 4+ H (Negative) Triple Phos Crystals Present A (None Prsent) Urine Yeast Not Reportable 05/22/20 Range/Units 17:02 WBC (4.8-10.8) K/uL RBC (4.2-5.4) M/uL Hgb (12.0-16.0) g/dL Hct (37-47) % MCV (80-100) fL MCH (25-34) pg MCHC (32-36) g/dL RDW Std Deviation (36.4-46.3) fL RDW Coeff of Malia (11.5-14.5) % Plt Count (130-400) K/uL MPV (7.4-10.4) fL Immature Gran % (Auto) % Neut % (Auto) % Lymph % (Auto) % [place] % (Auto) % Eos % (Auto) % Baso % (Auto) % Neut # (Auto) (1.4-6.5) K/uL Lymph # (Auto) (1.2-3.4) K/uL [place] # (Auto) (0.11-0.59) K/uL Eos # (Auto) (0-0.5) K/uL Baso # (Auto) (0-0.2) K/uL Immature Gran # (Auto) (0.00-0.02) K/uL PT (9.0-12.0) Seconds INR (0.9-1.1) APTT (21.0-31.0) Seconds PTT Ratio Sodium (136-145) mmol/L Potassium (3.5-5.1) mmol/L Chloride (98-107) mmol/L Carbon Dioxide (21-32) mmol/L Anion Gap (3-11) BUN (7-18) mg/dl Creatinine (0.6-1.2) mg/dl Est Cr Clr Drug Dosing ml/min Est GFR ( Amer) Est GFR (Non-Af Amer) BUN/Creatinine Ratio (10-20) Glucose (70-99) mg/dl POC Glucose (70-99) mg/dl Lactate 2.8 H* (0.4-2.0) mmol/L Calcium (8.5-10.1) mg/dl Magnesium (1.8-2.4) mg/dl Total Bilirubin (0.2-1) mg/dl AST (15-37) U/L ALT (12-78) U/L Alkaline Phosphatase (45-117) U/L Troponin I (0-0.045) ng/ml Total Protein (6.4-8.2) gm/dl Albumin (3.4-5.0) gm/dl Globulin (2.5-4.0) gm/dl Albumin/Globulin Ratio (0.9-2) Procalcitonin (0-0.5) ng/ml Urine Color Urine Appearance (Clear) Urine pH (4.5-7.5) Ur Specific [place] (1.000-1.030) Urine Protein (Negative) Urine Glucose (UA) (Negative) Urine Ketones (Negative) Urine Blood (Negative) Urine Nitrite (Negative) Urine Bilirubin (Negative) Urine Urobilinogen (Negative) Ur Leukocyte Esterase (Negative) Urine WBC (Auto) (0-5) /hpf Urine RBC (Auto) (0-4) /hpf U Hyaline Cast (Auto) (0-5) /lpf U Epithel Cells (Auto) (0-5) /lpf Urine Bacteria (Auto) (Negative) Triple Phos Crystals (None Prsent) Urine Yeast Administered Medications Discontinued Medications Acetaminophen (Ofirmev) 1,000 mg IV ONE ONE Stop: 05/22/20 15:16 Last Admin: 05/22/20 15:45 Dose: 1,000 mg Documented by: [id number] Dextrose (Dextrose 50%) Confirm Administered Dose 50 ml IV .STK-MED ONE Stop: 05/22/20 14:27 Last Admin: 05/22/20 14:41 Dose: Not Given Documented by: [id number] Dextrose (Dextrose 50%) 50 ml IV ONCE ONE Stop: 05/22/20 14:41 Last Admin: 05/22/20 14:41 Dose: 50 ml Documented by: [id number] Dextrose (Dextrose 50%) 50 ml IV NOW ONE Stop: 05/22/20 14:56 Last Admin: 05/22/20 15:47 Dose: Not Given Documented by: [id number] Sodium Chloride (Nss 1000ml) 1,000 mls @ 999 mls/hr IV .Q1H1M ANTOLIN Stop: 05/22/20 15:26 Last Infusion: 05/22/20 15:55 Dose: 0 mls/hr Documented by: [id number] Admin: 05/22/20 14:54 Dose: 999 mls/hr Documented by: [id number] Cefepime HCl (Maxipime) 2,000 mg in 20 mls @ 5 mls/min IV NOW STA; Protocol Stop: 05/22/20 14:35 Last Admin: 05/22/20 15:29 Dose: 5 mls/min Documented by: [id number] Sodium Chloride (1/2 Nss) 1,000 mls @ 999 mls/hr IV .Q1H1M ANTOLIN Stop: 06/21/20 16:59 Last Admin: 05/22/20 17:03 Dose: Not Given Documented by: [id number] Sodium Chloride (1/2 Nss) 1,000 mls @ 999 mls/hr IV .Q1H1M ANTOLIN Stop: 05/22/20 18:15 Last Infusion: 05/22/20 18:03 Dose: 0 mls/hr Documented by: [id number] Admin: 05/22/20 17:03 Dose: 999 mls/hr Documented by: [id number] Discharge Plan Visit Data Chief Complaint: Altered Mental Status ED Provider: Rolo Thakur Discharge Problem: Sepsis, Respiratory failure, UTI (urinary tract infection), Elevated lactic acid level, Hypernatremia Forms Stand Alone Forms: [facility] Prescriptions Prescriptions: No Action ondansetron HCl [Zofran] 4 mg Tablet 4 mg PO Q6H PRN (Reason: Nausea) RF: 0 acetaminophen [Tylenol] 325 mg Tablet 650 mg PO Q6H PRN (Reason: Pain or Fever) RF: 0 acetaminophen 650 mg Suppository 650 mg GA Q4H PRN (Reason: Elevated Temp) RF: 0 haloperidol 5 mg Tablet 5 mg PO QAM RF: 0 clopidogrel 75 mg tablet 75 mg PO QAM RF: 0 lorazepam [Ativan] 0.5 mg Tablet 0.5 mg PO Q4H PRN (Reason: Terminal Agitation) RF: 0 magnesium hydroxide [Milk of Magnesia] 400 mg/5 mL Suspension 30 ml PO UD PRN (Reason: Constipation) RF: 0 bisacodyl [Dulcolax (bisacodyl)] 10 mg Suppository 10 mg GA DAILY PRN (Reason: Constipation) RF: 0 nystatin 100,000 unit/gram Cream 1 applic TOPICAL BID RF: 0 lidocaine [Lidoderm] 5 % Adhesive Patch,Medicated 1 patch TOPICAL DAILY RF: 0 Lac-Hydrin 12% 0 mg 1 applic topical BID RF: 0 metoprolol tartrate 25 mg tablet 12.5 mg PO BID RF: 0 atropine 1 % drops 1 drops PO Q2H PRN (Reason: secretions) Qty: 15 RF: 0 morphine concentrate 100 mg/5 mL (20 mg/mL) solution 5 mg PO Q3H PRN (Reason: pain/ agitation) Qty: 30 RF: 0 Discharge Problem: Sepsis Qualifiers: Sepsis type: sepsis due to unspecified organism Sepsis acute organ dysfunction status: with acute organ dysfunction Severe sepsis acute organ dysfunction type: acute respiratory failure Acute respiratory failure type: with hypoxia Severe sepsis shock status: without septic shock Qualified Code(s): A41.9 - Sepsis, unspecified organism Respiratory failure Qualifiers: Chronicity: acute on chronic Respiratory failure complication: hypoxia Qualified Code(s): J96.21 - Acute and chronic respiratory failure with hypoxia UTI (urinary tract infection) Qualifiers: Urinary tract infection type: catheter-associated UTI Indwelling urinary catheter type: indwelling urethral catheter Encounter type: initial encounter Qualified Code(s): T83.511A - Infection and inflammatory reaction due to indwelling urethral catheter, initial encounter
--- NOTE | 2020-05-22 14:50 | XRay Report ---
XR chest 1V portable HISTORY: 70 years-old Female SEPSIS acute sepsis COMPARISON: Chest radiograph 04/07/2020 TECHNIQUE: Portable AP view of the chest FINDINGS: Right medial lung apex is partially obscured by the patient's chin. Moderate cardiomegaly. Calcified plaque of the thoracic aortic arch. No pneumothorax. Small right pleural effusion with asymmetric rig ht greater than left bibasilar consolidative opacities. Chronic interstitial coarsening with emphysem a. No overt pulmonary edema. IMPRESSION: 1. Cardiomegaly without overt pulmonary edema. 2. Small right pleural effusion with right greater than left bibasilar consolidative opacities sugges tive of atelectasis versus pneumonitis. 3. Emphysema with chronic interstitial coarsening. ACT 112: Negative or not required by law. The above report was generated using voice recognition software. It may contain grammatical, syntax o r spelling errors. Electronically signed by: Bulmaro Salazar M.D. 05/22/2020 2:49 PM
[2020-05-22] MEDS ORDERED: ACETAMINOPHEN 65 ML IV ONE (14:55)
[2020-05-22] MEDS ORDERED: ACETAMINOPHEN 1000 MG/100 ML IV IV ONE (15:15)
[2020-05-22 15:28] LABS: INR 1.5 (0.9-1.1); Partial Thromboplastin Ratio 0.9; Partial Thromboplastin Time 26.5 Seconds (21.0-31.0); Prothrombin Time 15.8 Seconds (9.0-12.0)
[2020-05-22 15:51] LABS: Albumin Globulin Ratio 0.7 (0.9-2); Albumin Level 2.8 gm/dl (3.4-5.0); BUN Creatinine Ratio 17.4 (10-20); Bilirubin,Total 2.5 mg/dl (0.2-1); Calcium 8.7 mg/dl (8.5-10.1); Est GFR (Non-African American) 40.6; Globulin 4.3 gm/dl (2.5-4.0); Magnesium 2.2 mg/dl (1.8-2.4); Potassium 3.8 mmol/L (3.5-5.1); Total Protein 7.1 gm/dl (6.4-8.2); Troponin I 1.38 ng/ml (0-0.045)
[2020-05-22 16:01] LABS: Appearance Urine Turbid (Clear); Bacteria Urine Automated 4+ (Negative); Blood Urine 3+ (Negative); Color Urine Dark Yellow; Epithelial Cell Urine Auto 20-30 /lpf (0-5); Glucose Urine UA Trace (Negative); Ketones Urine Trace (Negative); Leukocyte Esterase Urine 3+ (Negative); Nitrite Urine Positive (Negative); Specific Gravity Urine 1.018 (1.000-1.030); Urobilinogen Urine Negative (Negative); WBC Urine Automated >30 /hpf (0-5); pH Urine 8.5 (4.5-7.5)
[2020-05-22 16:02] LABS: Basophils # (auto) 0.01 K/uL (0-0.2); Basophils % (auto) 0.2 %; Hematocrit (blood only) 41.8 % (37-47); Hemoglobin 13.7 g/dL (12.0-16.0); Immature Granulocytes # (auto) 0.01 K/uL (0.00-0.02); Immature Granulocytes % (auto) 0.2 %; Lymphocytes # (auto) 0.48 K/uL (1.2-3.4); Lymphocytes % (auto) 7.3 %; Mean Corpuscular Hemoglobin 33.3 pg (25-34); Mean Corpuscular Hgb Conc 32.8 g/dL (32-36); Mean Corpuscular Volume 101.7 fL (80-100); Mean Platelet Volume 10.6 fL (7.4-10.4); Monocytes % (auto) 3.1 %; Neutrophils # (auto) 5.85 K/uL (1.4-6.5); Neutrophils % (auto) 89.2 %; Platelet Count 223 K/uL (130-400); RDW Coefficient of Variation 16.5 % (11.5-14.5); RDW Standard Deviation 58.7 fL (36.4-46.3); Red Blood Count 4.11 M/uL (4.2-5.4); White Blood Count 6.55 K/uL (4.8-10.8)
[2020-05-22 16:03] LABS: Protein Urine 2+ (Negative)
[2020-05-22 16:04] LABS: Bilirubin Urine Negative (Negative); Ictotest Urine Negative (Negative); Sulfosalicylic Acid Urine Positive (Negative)
[2020-05-22 16:12] LABS: Triple Phosphate Crystal Urine Present (None Prsent)
[2020-05-22 16:13] LABS: RBC Urine Automated >30 /hpf (0-4)
[2020-05-22] MEDS ORDERED: SODIUM CHLORIDE 0.45 % 1,000 ML IV SCH ×2 (17:00→17:15)
--- NOTE | 2020-05-22 17:37 | History & Physical Report ---
Date of Service May 22, 2020 Assessment & Plan (1) Goals of care, counseling/discussion: Discussed with her son Genesis. Not for escalation of care. No vasopressors. DNR/DNI. Family aware of poor prognosis. (2) Sepsis: Suspected from UTI. Discussed with her son Genesis and her daughter who joined the same call. Discussed very poor prognosis and unsure if the patient will survive the night. They wished to continue current care with IV fluids and antibiotics and plan on discussing with them at the end of shift. IV cefepime, add IV vancomycin. Given prior pseudomonas will also add levaquin. Given LVEF 30-35% high likelihood of heart failure from IV fluids but currently needing boluses to increase her BP. COVID-19 pending. (3) Elevated lactic acid level: Trending down with IV fluids (4) UTI (urinary tract infection): Continue broad spectrum antibiotics as above. Change clark catheter after antibiotics started. (5) Hypernatremia: Secondary to water deficit with dehydrated state. NSS 1L bolus followed by 0.5NSS 1.5L bolus given in ER with improvement of BP. Switch to D5W + 20 meq KCl @ 100 ml/hr and serially measure Na to make sure trending down (1.7L free water deficit calculated). (6) Acute metabolic encephalopathy: Suspect secondary to dehydration, sepsis, hypernatremia as above. Significantly off her baseline as per family at present. (7) Atrial fibrillation: Chronic. On metoprolol tartrate PO 12.5mg BID for rate control (currently on hold due to hypotension with suspected appropriate rate) No anticoagulation as per prior refusals (from previous palliative care notes) (8) Legally blind: (9) Combined systolic and diastolic heart failure: Notable history of this. (10) Chronic prescription opiate use: No fentanyl patch seen on exam - presumably this has been removed. At risk of withdrawal - no current restlessness, mydriasis to suggest withdrawal at present. (11) Elevated troponin: Suspect demand-ischemia given increased on prior occasions. No Continue to trend - if substantially increasing will treat as ACS. (12) Elevated bilirubin: This appears to be chronically elevated and substantially increases with acute illnesses. Will continue to trend but do not suspect primary biliary cause of infection at present. Repeat CMP in AM (13) DVT prophylaxis: Heparin 5000 units SQ BID History of Present Illness Chief Complaint: Sepsis, altered mental state Primary Care Provider: R[facility] Liane Arreguin is a 70 year old female with atrial fibrillation, heart failure with reduced ejection fraction and recent large left CVA who presents to the ER via EMS from [facility] due to altered mental state. I am unable to get any history from the patient as she is on BiPAP, lethargic and even at her baseline she has difficulty talking since her stroke. Her family report significant decline since a Fentanyl patch and haldol was started for her and she has fallen from her bed a few times in the last 2 days although they also report yesterday she was responding to them and sitting up and speaking as much as she has been since her stroke. The family were unhappy at the Fentanyl patch and haldol as they were unsure of the reasons this was started. She was on hospice care at [facility] although due to the sudden decline and abnormal labs taken at [facility] (significant hypernatremia) her family wish her to be treated for her current condition to see if her cognitive state returns. I talked to Genesis, who based on primary contact in EHR and prior palliative care notes is Liane's main decision maker (although she has 8 children) - confirmed DNR/DNI status, not for vasopressors or escalation of care beyond what we have done already (non-invasive ventilation, IV antibiotics, IV fluids), previously decided not for PEG tube although she was given temporary NG tube nutrition after her stroke while hospitalized. Allergies Allergy/AdvReac Type Severity Reaction Status Date / Time Penicillins Allergy Unknown Unknown Verified 03/20/20 09:05 Home Medications Home Medications Medication Instructions Recorded Confirmed Type ondansetron HCl [Zofran] 4 mg PO Q6H PRN 12/15/19 05/22/20 History atropine 1 drops PO Q2H PRN #15 ml 04/09/20 05/22/20 Rx morphine concentrate 5 mg PO Q3H PRN #30 ml 04/09/20 05/22/20 Rx Lac-Hydrin 12% 1 applic TOPICAL BID 05/22/20 05/22/20 History acetaminophen 650 mg MN Q4H PRN 05/22/20 05/22/20 History acetaminophen [Tylenol] 650 mg PO Q6H PRN 05/22/20 05/22/20 History bisacodyl [Dulcolax (bisacodyl)] 10 mg MN DAILY PRN 05/22/20 05/22/20 History clopidogrel 75 mg PO QAM 05/22/20 05/22/20 History haloperidol 5 mg PO QAM 05/22/20 05/22/20 History lidocaine [Lidoderm] 1 patch TOPICAL DAILY 05/22/20 05/22/20 History lorazepam [Ativan] 0.5 mg PO Q4H PRN 05/22/20 05/22/20 History magnesium hydroxide [Milk of 30 ml PO UD PRN 05/22/20 05/22/20 History Magnesia] metoprolol tartrate 12.5 mg PO BID 05/22/20 05/22/20 History nystatin 1 applic TOPICAL BID 05/22/20 05/22/20 History Past Med/Surg History Medical History Acute ischemic cerebrovascular accident (CVA) involving left middle cerebral artery territory (Acute) Atrial ectopy (Chronic) Atrial fibrillation Chronic wound of extremity Closed left hip fracture (Resolved) Combined systolic and diastolic heart failure Edema (Acute) Elevated bilirubin Hemiparesis Hyperlipemia (Chronic) Hypertension (Resolved) Hypoxia Macrocytosis Medical non-compliance (Acute) Non-sustained ventricular tachycardia Peripheral vascular disease Visual impairment (Chronic) Family History Other No pertinent family history Social History Smoking Status: Unknown if ever smoked Cigarettes Per Day: 10; Second Hand Exposure: No; Do You Dip or Chew Tobacco: No; Tobacco Cessation Education Requested by Patient: No Hx Alcohol Use: No Hx Substance Use: No Preferred Language: Portuguese Communication Ability: Effective Residential Designer Required: No Beliefs That Will Affect Care: None marital status: / Current Living Situation: Rehab Current Living Situation Comment: [facility] How many Children do You have: 8 Other Information That Helps Us Care for You: No Feels Safe at Home: Yes Safety Concerns: Feels Safe At This Time Review of Systems Review of Systems: Unobtainable due to cognitive status Physical Exam Constitutional: + ill appearing and + frail appearing; no acute distress Respiratory: + labored breathing, + retractions, + uses accessory muscles and + tachypneic; no cough, + not able to speak in complete sentence, expiratory phase not prolonged and no audible wheezes Auscultation: + diminished lung sounds (throughout) and + crackles (throughout); no wheezes Cardiovascular: Extremities: + abnormal capillary refill (7-8 seconds finger tips, no central cyanosis) Gastrointestinal (Abdomen): Inspection/Auscultation: + abdomen distended and + hypoactive bowel sounds (minimal) Percussion/Palpation: abdomen soft; abdomen nontender, no guarding and abdomen not rigid Musculoskeletal: muscle atrophy in all 4 extremities Skin: + turgor decreased Neurologic: + not awake Psychiatric: Orientation: + not alert (responds to noxious stimuli, GCS 7 [id number]) Lymphatic: no cervical or axillary lymphadenopathy Results & Data Results & Data ([facility]) Vital Signs (Past 12 Hours) Vital Signs Temp Pulse Resp BP Pulse Ox 05/22/20 16:52 38.2 C H 28 H 95 05/22/20 16:49 123 H 22 72/45 L 97 05/22/20 16:45 113 H 27 H 67/44 L 97 05/22/20 16:31 120 H 16 91/48 L 98 05/22/20 16:30 118 H 17 99 05/22/20 16:16 123 H 29 H 99 05/22/20 16:15 124 H 32 H 102/58 L 99 05/22/20 16:01 127 H 26 H 99 05/22/20 16:00 129 H 39 H 106/60 99 05/22/20 15:46 144 H 25 H 101/66 93 05/22/20 15:36 28 H 91 05/22/20 15:31 132 H 36 H 107/67 90 05/22/20 15:30 147 H 42 H 90 05/22/20 15:15 128 H 40 H 90 05/22/20 15:10 136 H 33 H 128/59 L 94 05/22/20 15:00 133 H 34 H 96 05/22/20 14:45 138 H 35 H 99 05/22/20 14:30 150 H 26 H 94 05/22/20 14:26 39.7 C H 163 H 40 H 120/78 84 L 05/22/20 14:16 149 H 36 H 120/78 Diagnostic Findings XR chest 1V portable IMPRESSION: 1. Cardiomegaly with findings of developing components of congestive failure. 2. Small superimposed infiltrative process right base. ECG Indication: altered mental status Rate (beats per minute): 127 Rhythm: atrial fibrillation Findings: + left axis deviation Comparison ECG Date: from (03/21/2020) Change: no significant change Code Status & VTE Plan Code Status DNR/DNI, no vasopressors VTE Prophylaxis Plan VTE Prophylaxis will be ordered: Yes Reason for no VTE mechanical prophylaxis: Contraindicated Critical Care Time Prolonged Care Time Prolonged Care Time: Yes Total Prolonged Care Time: 70 PG Care Time/CCT Total # of Minutes Spent Total Time Spent with Patient: Total time spent is greater than 50% in coordination of care (as documented) at patient's floor/unit and/or counseling patient: Prolonged Care Time Prolonged Care Time: Yes Total Prolonged Care Time: 70 Coding Level of Care Code 15433 Initial Inpt Care Lvl 3 Diagnoses Goals of care, counseling/discussion Z71.89 Sepsis A41.9; R65.20; J96.01 Acute respiratory failure type: with hypoxia Sepsis acute organ dysfunction status: with acute organ dysfunction Sepsis type: sepsis due to unspecified organism Severe sepsis acute organ dysfunction type: acute respiratory failure Severe sepsis shock status: without septic shock Elevated lactic acid level R79.89 UTI (urinary tract infection) T83.511A; N39.0 Encounter type: initial encounter Indwelling urinary catheter type: indwelling urethral catheter Urinary tract infection type: catheter-associated UTI Hypernatremia E87.0 Acute metabolic encephalopathy G93.41 Atrial fibrillation I48.91 Legally blind H54.8 Combined systolic and diastolic heart failure I50.40 Chronic prescription opiate use Z79.891 Elevated troponin R79.89 Elevated bilirubin R17 DVT prophylaxis Z29.9 Additional Codes Prolonged Care Time - Prolonged Care Time: Yes ([id number]) (1) UTI (urinary tract infection) Encounter type: initial encounter Indwelling urinary catheter type: indwelling urethral catheter Urinary tract infection type: catheter-associated UTI Qualified Code(s): T83.511A - Infection and inflammatory reaction due to indwelling urethral catheter, initial encounter; N39.0 - Urinary tract infection, site not specified (2) Sepsis Acute respiratory failure type: with hypoxia Sepsis acute organ dysfunction status: with acute organ dysfunction Sepsis type: sepsis due to unspecified organism Severe sepsis acute organ dysfunction type: acute respiratory failure Severe sepsis shock status: without septic shock Qualified Code(s): A41.9 - Sepsis, unspecified organism; R65.20 - Severe sepsis without septic shock; J96.01 - Acute respiratory failure with hypoxia
[2020-05-22] MEDS ORDERED: VANCOMYCIN CONSULT ACTIVE PRN (17:50)
--- NOTE | 2020-05-22 17:59 | Electrocardiogram Report ---
Test Reason : Blood Pressure : / mmHG Vent. Rate : 127 BPM Atrial Rate : 129 BPM P-R Int : 000 ms QRS Dur : 092 ms QT Int : 342 ms P-R-T Axes : 000 -46 154 degrees QTc Int : 497 ms Poor data quality, interpretation may be adversely affected Atrial fibrillation Left axis deviation Left ventricular hypertrophy with repolarization abnormality Abnormal ECG Confirmed by Maycol Conklin ([id number]) on 05/22/2020 5:58:57 PM [facility] By[facility] Confirmed By:Albaro Conklin
[2020-05-22] MEDS ORDERED: VANCOMYCIN HCL 1,250 MG in SODIUM CHLORIDE 0.9% 500 ML IV ONE (18:45)
[2020-05-22] MEDS: SODIUM CHLORIDE 0.45 % 1,000 ML IV SCH ×2 (19:39→21:05)
[2020-05-22] MEDS: D5NSS + 20MEQ KCL 20 MEQ/1,000 ML BAG IV SCH (21:17)
[2020-05-22] MEDS ORDERED: HEPARIN SOD 5,000 UNIT/0.5 ML VIAL SQ STA (21:21)
[2020-05-22] MEDS: LEVOFLOXACIN/D5W 750 MG/150 ML BAG IV SCH (22:01)
[2020-05-22 22:23] LABS: Albumin Globulin Ratio 0.7 (0.9-2); Albumin Level 2.3 gm/dl (3.4-5.0); BUN Creatinine Ratio 16.9 (10-20); Bilirubin,Total 2.5 mg/dl (0.2-1); Calcium 8.2 mg/dl (8.5-10.1); Creatinine Clr Calc Pharmacy 37.1 ml/min; Est GFR (African American) 42.3; Est GFR (Non-African American) 36.5; Globulin 3.4 gm/dl (2.5-4.0); Potassium 3.4 mmol/L (3.5-5.1); Total Protein 5.7 gm/dl (6.4-8.2); Troponin I 1.63 ng/ml (0-0.045)
[2020-05-22] MEDS ORDERED: METOPROLOL TARTRATE 25 MG TAB PO SCH (23:00)
[2020-05-22] MEDS ORDERED: DIGOXIN 250 MCG in SYRINGE 9 ML IV ONE (23:30)
[2020-05-22] MEDS: ALBUMIN 25% 50 ML IV SCH (23:35)
[2020-05-23] MEDS ORDERED: ACETAMINOPHEN 1000 MG/100 ML IV IV SCH
[2020-05-23] MEDS: ALBUMIN 25% 50 ML IV SCH ×3 (00:18→06:14)
[2020-05-23] MEDS: ACETAMINOPHEN 1,000 MG/100 ML VIAL IV SCH ×3 (01:09→16:40)
[2020-05-23] MEDS ORDERED: CEFEPIME 2,000 MG in SYRINGE 7.5 ML IV SCH (04:00)
[2020-05-23] MEDS ORDERED: DIGOXIN 250 MCG in SYRINGE 9 ML IV ONE (05:15)
[2020-05-23 06:05] LABS: INR 2.1 (0.9-1.1); Prothrombin Time 21.4 Seconds (9.0-12.0)
[2020-05-23] MEDS ORDERED: KETOROLAC TROMETHAMINE 15 MG/ML VIAL IV ONE (06:19)
[2020-05-23] MEDS ORDERED: SODIUM CHLORIDE 0.9% 1000ML 250 ML IV ONE (06:19)
[2020-05-23 06:21] LABS: Albumin Level 2.5 gm/dl (3.4-5.0); BUN Creatinine Ratio 16.5 (10-20); Calcium 7.9 mg/dl (8.5-10.1); Creatinine Clr Calc Pharmacy 32.4 ml/min; Est GFR (African American) 35.8; Est GFR (Non-African American) 30.9; Potassium 3.7 mmol/L (3.5-5.1)
[2020-05-23 06:32] LABS: Albumin Globulin Ratio 0.7 (0.9-2); Globulin 3.7 gm/dl (2.5-4.0); Total Protein 6.2 gm/dl (6.4-8.2); Troponin I 1.33 ng/ml (0-0.045)
[2020-05-23 06:35] LABS: Basophils # (auto) 0.02 K/uL (0-0.2); Basophils % (auto) 0.1 %; Echinocytes 1+; Eosinophils # (auto) 0.01 K/uL (0-0.5); Eosinophils % (auto) 0.1 %; Hematocrit (blood only) 42.5 % (37-47); Hemoglobin 12.7 g/dL (12.0-16.0); Immature Granulocytes # (auto) 0.17 K/uL (0.00-0.02); Immature Granulocytes % (auto) 1.2 %; Lymphocytes % (auto) 8.9 %; Macrocytosis Present; Mean Corpuscular Hemoglobin 30.2 pg (25-34); Mean Corpuscular Hgb Conc 29.9 g/dL (32-36); Mean Corpuscular Volume 101.2 fL (80-100); Monocytes % (auto) 2.7 %; Neutrophils # (auto) 12.72 K/uL (1.4-6.5); Platelet Count 186 K/uL (130-400); White Blood Count 14.62 K/uL (4.8-10.8)
--- NOTE | 2020-05-23 06:36 | XRay Report ---
XR chest 1V portable CLINICAL HISTORY: hypoxia dyspnea COMPARISON STUDY: 05/22/2020 2:22 PM FINDINGS: Stable cardiomegaly. Stable chronic interstitial fibrosis. Probable superimposed right basi lar infiltrative process. Trace pleural fluid both lung bases. IMPRESSION: 1. Cardiomegaly with findings of developing components of congestive failure. 2. Small superimposed infiltrative process right base. ACT 112: Negative or not required by law. The above report was generated using voice recognition software. It may contain grammatical, syntax or spelling errors. Electronically signed by: Zackery Love M.D. 05/23/2020 6:35 AM
[2020-05-23] MEDS: LIDOCAINE 5% 1 PATCH TD SCH (08:32)
[2020-05-23] MEDS: HEPARIN SOD 5,000 UNIT/0.5 ML VIAL SQ SCH ×2 (08:33→22:06)
[2020-05-23] MEDS: D5NSS + 20MEQ KCL 20 MEQ/1,000 ML BAG IV SCH (08:50)
[2020-05-23] MEDS ORDERED: MoRPHine SULFATE 2 MG/ML CARP IV STA (08:59)
[2020-05-23] MEDS ORDERED: D5W AND 1/2NSS + 20MEQ KCL 20 MEQ/1,000 ML BAG IV SCH (09:30)
--- NOTE | 2020-05-23 09:36 | Palliative Care Consultation ---
Date of Consultation May 23, 2020 Assessment & Plan (1) Goals of care, counseling/discussion: Pt is a 70 year old female patient known to the palliative care service with PMH HTN, A fib with RVR, severe LV dysfunction with EF 20-25% on echo this February, RV dysfunction, visual impairment, hyperlipidemia, inoperable left hip fracture in Oct of this year and venous stasis ulcers, was just discharged on 03/18 after suffering a right CVA on 03/14 and then subsequently on 04/30/20 after being found to have a large, evolving left MCA infarct. Patient had right-sided hemiparesis and expressive aphasia during her last admission. The patient was showing significant decline last admission and was unable to eat. Last admission, family decided to forgo a PEG tube placement. The patient returned to [facility] with [facility]. The patient was transferred to the [facility] from [facility] yesterday as she was having mental status changes and increased falls over the past few days. She is being treated for urosepsis. Palliative care was consulted to discuss goals of care and symptom management as needed. Please see A/P for further assessment. We will follow. -I met with the patient in room 231. She was moaning, gripping the bed rails. -She is on BiPAP with FiO2 @ 50%, which later in the morning was increased to 80%. SpO2 ranges 92-96%. -Earlier conversations in the ED with the hospitalist and son indicated that they would like to try treating her sepsis (WBC 14.62), but ultimately do not want escalation of care to the ICU or aggressive diagnostic treatment. -I reached out and spoke directly to the patients son, Pranay. I did confirm she to remain a DNR/DNI. -I did discuss her increased O2 needs and the capacity of the BiPAP. We also discussed it appears she is uncomfortable with the BiPAP on. -Of course, we are starting IV abx treatment for her, but expressed that she appears to be declining and uncomfortable. -She did receive one dose of Morphine earlier this morning with little relief. -Pranay expressed he would like us to try to treat her, but again, reiterated that comfort is the main focus should she not be responding to treatment. -I did suggest that if there were any family that did want to see her in person that they visit and he said two sisters and a brother would be visiting. -He was agreeable to have Morphine 2 mg IV Q4 PRN ordered for her if needed. -The above was communicated with the nursing staff and hospitalist. At this time, she would not be stable for return to [facility] due to increased O2 needs. -Palliative Care will follow. (2) Sepsis: Acute respiratory failure type: with hypoxia Sepsis acute organ dysfunction status: with acute organ dysfunction Sepsis type: sepsis due to unspecified organism Severe sepsis acute organ dysfunction type: acute respiratory failure Severe sepsis shock status: without septic shock Qualified Code(s): A41.9 - Sepsis, unspecified organism; R65.20 - Severe sepsis without septic shock; J96.01 - Acute respiratory failure with hypoxia (3) Combined systolic and diastolic heart failure: (4) Acute ischemic cerebrovascular accident (CVA) involving left middle cerebral artery territory: (5) AMS (altered mental status): Altered mental status type: unspecified Qualified Code(s): R41.82 - Altered mental status, unspecified History of Present Illness Reason for Consultation: Goals of care Requesting Physician: Dr. Tiff AGUIRRE Attending Physician: Scott Shin DO History of Present Illness Pt is a 70 year old female patient known to the palliative care service with PMH HTN, A fib with RVR, severe LV dysfunction with EF 20-25% on echo this February, RV dysfunction, visual impairment, hyperlipidemia, inoperable left hip fracture in Oct of this year and venous stasis ulcers, was just discharged on 03/18 after suffering a right CVA on 03/14 and then subsequently on 04/30/20 after being found to have a large, evolving left MCA infarct. Patient had right-sided hemiparesis and expressive aphasia during her last admission. The patient was showing significant decline last admission and was unable to eat. Last admission, family decided to forgo a PEG tube placement. The patient returned to [facility] with [facility]. The patient was transferred to the [facility] from [facility] yesterday as she was having mental status changes and increased falls over the past few days. She is being treated for urosepsis. Palliative care was consulted to discuss goals of care and symptom management as needed. Please see A/P for further assessment. Thank you for involving the palliative care team with this patient. We will follow to provide support to the family. Allergies Allergy/AdvReac Type Severity Reaction Status Date / Time Penicillins Allergy Unknown Unknown Verified 03/20/20 09:05 Home Medications Home Medications Medication Instructions Recorded Confirmed Type ondansetron HCl [Zofran] 4 mg PO Q6H PRN 12/15/19 05/22/20 History atropine 1 drops PO Q2H PRN #15 ml 04/09/20 05/22/20 Rx morphine concentrate 5 mg PO Q3H PRN #30 ml 04/09/20 05/22/20 Rx Lac-Hydrin 12% 1 applic TOPICAL BID 05/22/20 05/22/20 History acetaminophen 650 mg ND Q4H PRN 05/22/20 05/22/20 History acetaminophen [Tylenol] 650 mg PO Q6H PRN 05/22/20 05/22/20 History bisacodyl [Dulcolax (bisacodyl)] 10 mg ND DAILY PRN 05/22/20 05/22/20 History clopidogrel 75 mg PO QAM 05/22/20 05/22/20 History haloperidol 5 mg PO QAM 05/22/20 05/22/20 History lidocaine [Lidoderm] 1 patch TOPICAL DAILY 05/22/20 05/22/20 History lorazepam [Ativan] 0.5 mg PO Q4H PRN 05/22/20 05/22/20 History magnesium hydroxide [Milk of 30 ml PO UD PRN 05/22/20 05/22/20 History Magnesia] metoprolol tartrate 12.5 mg PO BID 05/22/20 05/22/20 History nystatin 1 applic TOPICAL BID 05/22/20 05/22/20 History Patient History Medical History Acute ischemic cerebrovascular accident (CVA) involving left middle cerebral artery territory (Acute) Atrial ectopy (Chronic) Atrial fibrillation Chronic wound of extremity Closed left hip fracture (Resolved) Combined systolic and diastolic heart failure Edema (Acute) Elevated bilirubin Hemiparesis Hyperlipemia (Chronic) Hypertension (Resolved) Hypoxia Macrocytosis Medical non-compliance (Acute) Non-sustained ventricular tachycardia Peripheral vascular disease Visual impairment (Chronic) Family History Other No pertinent family history Social History Smoking Status: Unknown if ever smoked Cigarettes Per Day: 10; Second Hand Exposure: No; Do You Dip or Chew Tobacco: No; Tobacco Cessation Education Requested by Patient: No Hx Alcohol Use: No Hx Substance Use: No Preferred Language: Bahamian Communication Ability: Effective Prints And Drawings Curator Required: No Beliefs That Will Affect Care: None marital status: / Current Living Situation: Rehab Current Living Situation Comment: [facility] How many Children do You have: 8 Other Information That Helps Us Care for You: No Feels Safe at Home: Yes Safety Concerns: Feels Safe At This Time Results & Data Vital Signs (Past 12 Hours) Vital Signs Temp Pulse Pulse Pulse Resp BP Pulse Ox 05/23/20 08:00 125 H 05/23/20 07:13 36.3 C L 137 H 14 121/97 100 05/23/20 07:05 107 H 24 100 05/23/20 05:22 175 H 05/23/20 04:59 119/72 05/23/20 03:16 87 30 H 96 05/23/20 03:10 36.1 C L 128 H 24 103/68 96 05/23/20 00:25 36.8 C 05/22/20 23:39 195 H 05/22/20 23:27 98/75 L 05/22/20 23:10 144/79 H 05/22/20 23:07 194 H 24 100 05/22/20 23:02 120/79 05/22/20 23:01 95/67 L PG Care Time/CCT Total # of Minutes Spent Total Time Spent with Patient: Total time spent is greater than 50% in coordination of care (as documented) at patient's floor/unit and/or counseling patient:70 Coding Level of Care Code 25553 Inpt Consult Level 3 Diagnoses Goals of care, counseling/discussion Z71.89 Sepsis A41.9; R65.20; J96.01 Acute respiratory failure type: with hypoxia Sepsis acute organ dysfunction status: with acute organ dysfunction Sepsis type: sepsis due to unspecified organism Severe sepsis acute organ dysfunction type: acute respiratory failure Severe sepsis shock status: without septic shock Combined systolic and diastolic heart failure I50.40 Acute ischemic cerebrovascular accident (CVA) involving left middle cerebral artery territory I63.512 AMS (altered mental status) R41.82 Altered mental status type: unspecified Time Spent (min) 70 Time Spent Midlevel Total time spent 70 minutes with > 50% of that time spent assessing the patient, discussing goals of care and providing symptom management with IDT and family
[2020-05-23] MEDS ORDERED: MoRPHine SULFATE 2 MG/ML CARP IV PRN (10:44)
--- NOTE | 2020-05-23 11:43 | Electrocardiogram Report ---
Test Reason : Blood Pressure : / mmHG Vent. Rate : 164 BPM Atrial Rate : 144 BPM P-R Int : 000 ms QRS Dur : 088 ms QT Int : 300 ms P-R-T Axes : 000 -23 109 degrees QTc Int : 495 ms Poor data quality, interpretation may be adversely affected Atrial fibrillation with rapid ventricular response Voltage criteria for left ventricular hypertrophy Abnormal ECG Confirmed by Maycol Conklin ([id number]) on 05/23/2020 11:43:16 AM [facility] Confirmed By:Albaro Conklin
[2020-05-23] MEDS: MoRPHine SULFATE 2 MG/ML CARP IV PRN ×4 (15:02→23:33)
--- NOTE | 2020-05-23 18:49 | Hospitalist Progress Note ---
Date of Service May 23, 2020 Assessment & Plan (1) Sepsis: Suspected from UTI. admitting physician discussed with her son Genesis and her daughter who joined the same call. conversations continued via palliative team - see their notes. for now, while prognosis grim, continuing to treat sep sis is quite reasonable (2) Acute respiratory failure with hypoxia: most likely from acute HFrEF due to physiologic stress from sepsis. bipap helping. BP low - concern on diuresis. also possible pneumonia - although less likely - but abx from above would help. (3) Elevated lactic acid level: Trended down with IV fluids (4) Pneumonia: possible - suspect sepsis from UTI, suspect bulk of hypoxia from CHF, but possible. that said, abx will cover. (5) UTI (urinary tract infection): see above - continue abx (6) Goals of care, counseling/discussion: treating sepsis, but not escalating further. DNR/DNI, d/w son first by admitting hospitalist, then by palliative team (7) Hypernatremia: difficult fluid balance given hypernatremia would suggest dry, but pulmonary vascular congestion/CHF would suggest wet. hold fluids entirely to allow breathing to be easier, follow (8) Acute metabolic encephalopathy: Suspect secondary to dehydration, sepsis, hypernatremia as above. supportive care (9) Atrial fibrillation: rate is controlled. never wanted anticoagulation. (10) Legally blind: (11) Combined systolic and diastolic heart failure: see above (12) Chronic prescription opiate use: noted. currently on prn morphine - pain appearing to be controlled overall with this - just needed to tighten frequency (13) Elevated troponin: Suspect demand-ischemia given sepsis and significant physiologic stress (14) Elevated bilirubin: This appears to be chronically elevated and substantially increases with acute illnesses. Will continue to trend but do not suspect primary biliary cause of infection at present. Repeat CMP in AM (15) DVT prophylaxis: Heparin 5000 units SQ BID Admission and Anticipated Discharge Date Admission Date: May 22, 2020 Subjective no HPI or ROS obtainable. pt appearing in pain when i see her - nursing notes that morphine did help for a while but duration of relief probably not long enough Review of Systems Review of Systems: Unobtainable due to cognitive status Physical Exam Physical Exam: gen - awake on bipap, appearing uncomfortable. heent nc at breathing mildly tachypnic on bipap skin no rashes no pallor or icterus. Results & Data Results & Data ([facility]) Vital Signs (Past 12 Hours) Vital Signs Temp Pulse Pulse Resp BP Pulse Ox 05/23/20 16:22 76 05/23/20 15:20 97.3 F L 77 16 105/67 94 05/23/20 15:14 76 23 94 05/23/20 12:00 97.5 F L 48 L 20 110/72 100 05/23/20 11:35 85 18 100 05/23/20 08:22 76 05/23/20 08:00 125 H 05/23/20 07:13 97.3 F L 137 H 14 121/97 100 05/23/20 07:05 107 H 24 100 PG Care Time/CCT Total # of Minutes Spent Total Time Spent with Patient: Total time spent is greater than 50% in coordination of care (as documented) at patient's floor/unit and/or counseling patient: Coding Level of Care Code 54788 Subseq Hosp Care Lvl 3 Diagnoses Sepsis A41.9; R65.20; J96.01 Acute respiratory failure type: with hypoxia Sepsis acute organ dysfunction status: with acute organ dysfunction Sepsis type: sepsis due to unspecified organism Severe sepsis acute organ dysfunction type: acute respiratory failure Severe sepsis shock status: without septic shock Acute respiratory failure with hypoxia J96.01 Elevated lactic acid level R79.89 Pneumonia J18.9 UTI (urinary tract infection) T83.511A; N39.0 Encounter type: initial encounter Indwelling urinary catheter type: indwelling urethral catheter Urinary tract infection type: catheter-associated UTI Goals of care, counseling/discussion Z71.89 Hypernatremia E87.0 Acute metabolic encephalopathy G93.41 Atrial fibrillation I48.91 Legally blind H54.8 Combined systolic and diastolic heart failure I50.40 Chronic prescription opiate use Z79.891 Elevated troponin R79.89 Elevated bilirubin R17 DVT prophylaxis Z29.9 (1) Sepsis Acute respiratory failure type: with hypoxia Sepsis acute organ dysfunction status: with acute organ dysfunction Sepsis type: sepsis due to unspecified organism Severe sepsis acute organ dysfunction type: acute respiratory failure Severe sepsis shock status: without septic shock Qualified Code(s): A41.9 - Sepsis, unspecified organism; R65.20 - Severe sepsis without septic shock; J96.01 - Acute respiratory failure with hypoxia (2) UTI (urinary tract infection) Encounter type: initial encounter Indwelling urinary catheter type: indwelling urethral catheter Urinary tract infection type: catheter-associated UTI Qualified Code(s): T83.511A - Infection and inflammatory reaction due to indwelling urethral catheter, initial encounter; N39.0 - Urinary tract infection, site not specified
[2020-05-24] MEDS: ACETAMINOPHEN 1,000 MG/100 ML VIAL IV SCH ×3 (00:19→15:30)
[2020-05-24] MEDS: MoRPHine SULFATE 2 MG/ML CARP IV PRN ×6 (03:49→14:54)
[2020-05-24] MEDS ORDERED: DEXTROSE 50% 50 ML SYRINGE IV ONE (07:06)
[2020-05-24] MEDS ORDERED: CARBOHYDRATES FOR HYPOGLYCEMIA PO PRN (07:17)
[2020-05-24] MEDS ORDERED: GLUCOSE 40% GEL 15 GM TUBE PO PRN (07:17)
[2020-05-24] MEDS ORDERED: GLUCOSE 10 TABS/TUBE PO PRN (07:17)
[2020-05-24] MEDS ORDERED: DEXTROSE 50% 50 ML SYRINGE IV PRN (07:17)
[2020-05-24] MEDS ORDERED: GLUCAGON FOR INJ 1 MG VIAL SQ PRN (07:17)
[2020-05-24 07:19] VITALS: TEMP 97.5; O2SAT 94
[2020-05-24 08:10] LABS: BUN Creatinine Ratio 22.4 (10-20); Calcium 8.1 mg/dl (8.5-10.1); Creatinine Clr Calc Pharmacy 47.4 ml/min; Est GFR (African American) 54.5; Potassium 3.4 mmol/L (3.5-5.1)
[2020-05-24] MEDS: LIDOCAINE 5% 1 PATCH TD SCH (08:13)
[2020-05-24 08:19] LABS: Hematocrit (blood only) 40.6 % (37-47); Hemoglobin 12.2 g/dL (12.0-16.0); Mean Platelet Volume 10.7 fL (7.4-10.4); Platelet Count 143 K/uL (130-400); RDW Coefficient of Variation 16.7 % (11.5-14.5); RDW Standard Deviation 59.7 fL (36.4-46.3); Red Blood Count 4.06 M/uL (4.2-5.4); White Blood Count 16.22 K/uL (4.8-10.8)
[2020-05-24 08:20] LABS: Basophils # (auto) 0.01 K/uL (0-0.2); Basophils % (auto) 0.1 %; Echinocytes 1+; Eosinophils # (auto) 0.09 K/uL (0-0.5); Eosinophils % (auto) 0.6 %; Immature Granulocytes # (auto) 0.28 K/uL (0.00-0.02); Immature Granulocytes % (auto) 1.7 %; Lymphocytes # (auto) 0.76 K/uL (1.2-3.4); Lymphocytes % (auto) 4.7 %; Monocytes # (auto) 0.11 K/uL (0.11-0.59); Monocytes % (auto) 0.7 %; Neutrophils # (auto) 14.97 K/uL (1.4-6.5); Neutrophils % (auto) 92.2 %
[2020-05-24] MEDS ORDERED: ONDANSETRON INJ 2 MG/ML 2 ML VIAL IV PRN (09:57)
[2020-05-24] MEDS: ATROPINE SULFATE 1% OP SOLN 5 ML BTL OP PRN ×3 (11:08→20:31)
--- NOTE | 2020-05-24 11:13 | Hospitalist Progress Note ---
Date of Service May 24, 2020 Assessment & Plan (1) Goals of care, counseling/discussion: Ms. Arreguin is a 70 yo F brought in from [facility] where she receives her hospice care for AMS, thought to be secondary to urosepsis. Patient appears to be increasingly uncomfortable on exam, in obvious pulmonary edema (yet hypernatremia). Patient placed on comfort measures, including morphine drip, with additonal bolus doses added for breakthrough pain. Anticipate passing while in hospital. - unfortunate, overall poor prognosis - patient with underlying severe LV dysfunction with EF 20-25%, with subsequent decline after suffering a right CVA in 02/2020 and recent left-sided CVA in April 2020 - treating sepsis, but not escalating care further - DNR/DNI, d/w son first by admitting hospitalist, then by palliative team - patient placed on morphine drip at 1mg/hr + bolus doses ordered for bala akthrough pain - continue atropine drops, scopolamine patch and glycopyrrolate for respiratory secretions (2) Sepsis: - etiology thought to be from acute UTI - treating with IV Levaquin, but not escalating care further per family's wishes - WBC 14 on admission, up to 16 today - while patient would benefit from IV fluid boluses to improve pressure, high likelihood this would send her into heart failure given underlying poor LV function (3) Elevated lactic acid level: - Trended down with IV fluids (4) UTI (urinary tract infection): - see above - continue abx (5) Hypernatremia: - Na level 157, up from 153 - patient was started on 1/2 NSS on admission but this was d/c due to onset of pulmonary vascular congestion (poor HFrEF) - physiologically in contrast to pulmonarly volume overload - likely contributory to metabolic encephalopathy (6) Atrial fibrillation: - rate is controlled - patient never wanted anticoagulation (7) Acute metabolic encephalopathy: - etiology likely multifactorial (urosepsis, hypernatremia, and dehydration) - treat UTI as above (8) Legally blind: (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 - currently on morphine, frequency increased to due to perceived analgesia needs (11) Elevated troponin: - Suspect demand-ischemia given sepsis and significant physiologic stress (12) Elevated bilirubin: - This appears to be chronically elevated and substantially increases with acute illnesses. Will continue to trend but do not suspect primary biliary cause of infection at present. Admission and Anticipated Discharge Date Admission Date: May 22, 2020 Supervising Physician Co-Signing Physician Notes I personally examined the patient and verified all song points of history and exam, discussed case, and agree with decision making with Dr Rodriguez. myles in pain. in d/w nursing, morphine was helping but not lasting as long and needing more often vitals noted laying in bed frequently eyes open and moaning, has gurgling respirations. pain, dyspnea - comfort care - given that she's needed basically 1mg/hr prn morphine and that alone is not keeping up with pain / dyspnea needs - will start gtt @ 1mg/hr, continue with prn morphine/titrate gtt to meet comfort needs sepsis - probably from UTI, possible pneumonia - either way appears to be moving to actively dying acute respiratory failure w hypoxia - most likely HFrEF due to all of above, but possible pneumonia - either way on abx, managing dyspnea as possible hypernatremia - in the face of volume overload given pulmonary edema - seems most likely indicative of overall organ failure given these two "opposite" physiologic processes occurign at once. Subjective patient trying to speak some, although no meaningful conversation. After downgrade to med/surg, nurse reported patient was crying out in pain Review of Systems Review of Systems: Unobtainable due to cognitive status Physical Exam Constitutional: WD/WN, vitals as above + acute distress and + frail appearing ENMT: external ear and nose normal, oropharynx normal Neck: normal visual inspection and trachea midline Respiratory: BIPAP in place, gurgling respirations Genitourinary: Shelton catheter in place, draining cloudy urine Results & Data Results & Data ([facility]) Vital Signs (Past 12 Hours) Vital Signs Temp Pulse Pulse Resp BP Pulse Ox 05/24/20 09:00 58 L 05/24/20 07:18 36.4 C L 80 19 97/63 L 94 05/24/20 03:37 53 L 14 90 05/24/20 02:43 36.8 C 93 H 19 121/77 94 05/24/20 00:03 75 05/23/20 23:48 36.4 C L 95 H 20 92/57 L 95 Resident Activity Tracking Resident Involvement: Resident Care Provided Care Provided: Adult Hospital Medicine (1) UTI (urinary tract infection) Encounter type: initial encounter Indwelling urinary catheter type: indwelling urethral catheter Urinary tract infection type: catheter-associated UTI Qualified Code(s): T83.511A - Infection and inflammatory reaction due to indwelling urethral catheter, initial encounter; N39.0 - Urinary tract infection, site not specified (2) Sepsis Acute respiratory failure type: with hypoxia Sepsis acute organ dysfunction status: with acute organ dysfunction Sepsis type: sepsis due to unspecified organism Severe sepsis acute organ dysfunction type: acute respiratory failure Severe sepsis shock status: without septic shock Qualified Code(s): A41.9 - Sepsis, unspecified organism; R65.20 - Severe sepsis without septic shock; J96.01 - Acute respiratory failure with hypoxia
[2020-05-24] MEDS ORDERED: MoRPHine SULFATE 2 MG/ML CARP IV STA (15:37)
[2020-05-24 15:46] VITALS: BP 105/63; PULSE 87
[2020-05-24] MEDS ORDERED: MoRPHine SULFATE 4 MG/ML 1 ML CARP\\VIAL IV STA (17:09)
[2020-05-24] MEDS ORDERED: SCOPOLAMINE 1.5 MG TDSY TD ONE (17:14)
[2020-05-24] MEDS ORDERED: GLYCOPYRROLATE 0.2 MG/ML VIAL IM PRN (17:14)
--- NOTE | 2020-05-24 18:13 | Billing Data ---
Date of Service May 24, 2020 Coding Level of Care Code 14171 Subseq Hosp Care Lvl 3
[2020-05-24] MEDS: MoRPHine SULF/NSS 250 MG/250 ML BTL IV PRN ×2 (18:36→19:23)
[2020-05-24] MEDS: LEVOFLOXACIN/D5W 750 MG/150 ML BAG IV SCH (22:05)
[2020-05-25] MEDS: ACETAMINOPHEN 1,000 MG/100 ML VIAL IV SCH ×3 (00:03→16:01)
[2020-05-25] MEDS: CHECK SCOPOLAMINE PATCH PLACEMENT SCH ×3 (00:16→16:01)
[2020-05-25] MEDS: ATROPINE SULFATE 1% OP SOLN 5 ML BTL OP PRN ×2 (01:57→08:56)
[2020-05-25] MEDS: LIDOCAINE 5% 1 PATCH TD SCH (08:55)
[2020-05-25] MEDS: MoRPHine SULFATE 2 MG/ML CARP IV PRN (09:32)
[2020-05-25] MEDS: GLYCOPYRROLATE 0.2 MG/ML VIAL SQ PRN (11:34)
--- NOTE | 2020-05-25 12:22 | Hospitalist Progress Note ---
Date of Service May 25, 2020 Assessment & Plan (1) Goals of care, counseling/discussion: Ms. Arreguin is a 70 yo F brought in from [facility] where she receives her hospice care for AMS, thought to be secondary to urosepsis. Treating acute UTI with IV Levaquin. Due to increasing discomfort and in obvious pulmonary edema patient placed on comfort measures, including morphine drip, with additional bolus doses added for breakthrough pain. Drip rate increased to 2mg/hr. Anticipate passing while in hospital. - unfortunate, overall poor prognosis - patient with underlying severe LV dysfunction with EF 20-25%, with subsequent decline after suffering a right CVA in 02/2020 and recent left-sided CVA in April 2020 - treating sepsis, but not escalating care further - DNR/DNI, d/w son first by admitting hospitalist, then by palliative team - increased morphine drip to 2mg/hr + bolus doses ordered for breakthrough pain - continue atropine drops, scopolamine patch and glycopyrrolate for respiratory secretions (2) Sepsis: - etiology thought to be from acute UTI - treating with IV Levaquin, but not escalating care further per family's wishes - WBC 14 on admission. No longer drawing labs on comfort care. - while patient would benefit from IV fluid boluses to improve pressure, high likelihood this would send her into heart failure given underlying poor LV function (3) Elevated lactic acid level: - Trended down with IV fluids (4) UTI (urinary tract infection): - see above - continue abx (5) Hypernatremia: - Na level 157 on 05/24 - patient was started on 1/2 NSS on admission but this was d/c due to onset of pulmonary vascular congestion (poor HFrEF) - physiologically in contrast to pulmonary volume overload - likely contributory to metabolic encephalopathy - no longer checking lab values, as patient on comfort care (6) Atrial fibrillation: - rate is controlled - patient never wanted anticoagulation (7) Acute metabolic encephalopathy: - etiology likely multifactorial (urosepsis, hypernatremia, and dehydrati on) - treat UTI as above (8) Legally blind: (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 - currently on morphine, frequency increased to due to perceived analgesia needs (11) Elevated troponin: - Suspect demand-ischemia given sepsis and significant physiologic stress (12) Elevated bilirubin: - This appears to be chronically elevated and substantially increases with acute illnesses. no longer trending lab values Admission and Anticipated Discharge Date Admission Date: May 22, 2020 Supervising Physician Co-Signing Physician Notes I personally examined the patient and verified all song points of history and exam, discussed case, and agree with decision making with Dr Rodriguez. resting comfortably. in d/w nursing the only times now where she shows visible pain is with repositioning - but then additional meds help. vitals noted laying in bed frequently eyes open and moaning, has gurgling respirations. pain, dyspnea - comfort care - much more comfortable overall with current plan of care. family appreciative of care and efforts. sepsis - probably from UTI, possible pneumonia - either way appears to be moving to actively dying acute respiratory failure w hypoxia - most likely HFrEF due to all of above, but possible pneumonia - either way on abx, managing dyspnea as possible - not dyspneic now hypernatremia - in the face of volume overload given pulmonary edema - seems most likely indicative of overall organ failure given these two "opposite" physiologic processes occuring at once. appears heading towards passing Subjective Patient on morphine drip, tries to communicate some, but no meaningful conversation. Appears more comfortable than on exam yesterday, but still does cry out in pain. Family not present at beside today Review of Systems Review of Systems: Unobtainable due to cognitive status Physical Exam Constitutional: WD/WN, vitals as above + acute distress (mild, less so than on exam yesterday) and + frail appearing ENMT: external ear and nose normal, oropharynx normal Neck: normal visual inspection and trachea midline Respiratory: Auscultation: + rhonchi (throughout ) + gurgling sounds audible without stethoscope Genitourinary: Shelton in place draining cloudy urine Resident Activity Tracking Resident Involvement: Resident Care Provided Care Provided: Adult Hospital Medicine (1) UTI (urinary tract infection) Encounter type: initial encounter Indwelling urinary catheter type: indwelling urethral catheter Urinary tract infection type: catheter-associated UTI Qualified Code(s): T83.511A - Infection and inflammatory reaction due to indwelling urethral catheter, initial encounter; N39.0 - Urinary tract infection, site not specified (2) Sepsis Acute respiratory failure type: with hypoxia Sepsis acute organ dysfunction status: with acute organ dysfunction Sepsis type: sepsis due to unspecified organism Severe sepsis acute organ dysfunction type: acute respiratory failure Severe sepsis shock status: without septic shock Qualified Code(s): A41.9 - Sepsis, unspecified organism; R65.20 - Severe sepsis without septic shock; J96 .01 - Acute respiratory failure with hypoxia
--- NOTE | 2020-05-25 19:28 | Billing Data ---
Date of Service May 25, 2020 Coding Level of Care Code 44430 Subseq Hosp Care Lvl 3
[2020-05-26] MEDS: ACETAMINOPHEN 1,000 MG/100 ML VIAL IV SCH (00:15)
[2020-05-26] MEDS: CHECK SCOPOLAMINE PATCH PLACEMENT SCH ×3 (00:17→16:01)
--- NOTE | 2020-05-26 08:50 | Palliative Care Progress Note ---
Date of Service May 26, 2020 Assessment & Plan (1) Goals of care, counseling/discussion: -I met with the patient in room 352-2. The patient was resting comfortably, and does arouse to voice and tactile stimulation. Patient does have furrowed brow. -The patient has been started on a Morphine drip and it remains at 2mg/hour. -No family at the bedside for my visit. -The patient is on an oxymask 6L. -At this time, the patient is on full comfort measures only. -Low threshold to increase Morphine drip based on furrowed brow, moaning, or breathing pattern changes such as diaphragmatic breathing, or shallow rapid breathing. -The above was communicated with the nursing staff and hospitalist. At this time, she would not be stable for return to [facility] due to increased O2 needs. -Life expectancy hours to days. -Palliative Care will follow. PPS: 10% (2) Sepsis: (3) Combined systolic and diastolic heart failure: (4) Acute ischemic cerebrovascular accident (CVA) involving left middle cerebral artery territory: (5) AMS (altered mental status): Subjective Patient on morphine drip, tries to communicate some, but no meaningful conversation, all non sensical verbage. Family not present at beside today. Review of Systems Review of Systems: Unobtainable due to reduced consciousness Physical Exam Constitutional: + ill appearing, + frail appearing and + lethargic Respiratory: Auscultation: + diminished lung sounds shallow breathing Cardiovascular: RRR, no murmur, no edema Gastrointestinal (Abdomen): normal bowel sounds, soft, nontender, no hepatosplenomegaly Psychiatric: Orientation: alert (opens eyes to voice and tactile touch) PG Care Time/CCT Total # of Minutes Spent Total Time Spent with Patient: Total time spent is greater than 50% in coordination of care (as documented) at patient's floor/unit and/or counseling patient: 35 Coding Level of Care Code 06676 Subseq Hosp Care Lvl 3 Diagnoses Goals of care, counseling/discussion Z71.89 Sepsis A41.9; R65.20; J96.01 Acute respiratory failure type: with hypoxia Sepsis acute organ dysfunction status: with acute organ dysfunction Sepsis type: sepsis due to unspecified organism Severe sepsis acute organ dysfunction type: acute respiratory failure Severe sepsis shock status: without septic shock Combined systolic and diastolic heart failure I50.40 Acute ischemic cerebrovascular accident (CVA) involving left middle cerebral artery territory I63.512 AMS (altered mental status) R41.82 Altered mental status type: unspecified Time Spent (min) 35 Time Spent Midlevel Total time spent 35 minutes with > 50% of that time spent assessing the patient, discussing goals of care and symptom management with IDT. (1) Sepsis Acute respiratory failure type: with hypoxia Sepsis acute organ dysfunction status: with acute organ dysfunction Sepsis type: sepsis due to unspecified organism Severe sepsis acute organ dysfunction type: acute respiratory failure Severe sepsis shock status: without septic shock Qualified Code(s): A41.9 - Sepsis, unspecified organism; R65.20 - Severe sepsis without septic shock; J96.01 - Acute respiratory failure with hypoxia (2) AMS (altered mental status) Altered mental status type: unspecified Qualified Code(s): R41.82 - Altered mental status, unspecified
[2020-05-26] MEDS: LIDOCAINE 5% 1 PATCH TD SCH (08:51)
[2020-05-26] MEDS ORDERED: MoRPHine SULFATE 2 MG/ML CARP IV STA (09:43)
--- NOTE | 2020-05-26 11:41 | Hospitalist Progress Note ---
Date of Service May 26, 2020 Assessment & Plan (1) Goals of care, counseling/discussion: Ms. Arreguin is a 70 yo F brought in from [facility] where she receives her hospice care for AMS, thought to be secondary to urosepsis. Treating acute UTI with IV Levaquin. Due to increasing discomfort and in obvious pulmonary edema patient placed on comfort measures, including morphine drip, with additional bolus doses added for breakthrough pain. Drip rate increased to 4mg/hr. Anticipate passing while in hospital. - unfortunate, overall poor prognosis - patient with underlying severe LV dysfunction with EF 20-25%, with subsequent decline after suffering a right CVA in 02/2020 and recent left-sided CVA in April 2020 - treating sepsis, but not escalating care further - DNR/DNI, d/w son first by admitting hospitalist, then by palliative team - increased morphine drip to 4mg/hr + bolus doses ordered for breakthrough pain - continue atropine drops, scopolamine patch and glycopyrrolate for respiratory secretions (2) Sepsis: - etiology thought to be from acute UTI - treating with IV Levaquin, but not escalating care further per family's wishes - WBC 14 on admission. No longer drawing labs on comfort care. - while patient would benefit from IV fluid boluses to improve pressure, high likelihood this would send her into heart failure given underlying poor LV function (3) Elevated lactic acid level: - Trended down with IV fluids (4) UTI (urinary tract infection): - see above - continue abx (5) Hypernatremia: - Na level 157 on 05/24 - patient was started on 1/2 NSS on admission but this was d/c due to onset of pulmonary vascular congestion (poor HFrEF) - physiologically in contrast to pulmonary volume overload - likely contributory to metabolic encephalopathy - no longer checking lab values, as patient on comfort care (6) Atrial fibrillation: - rate is controlled - patient never wanted anticoagulation (7) Acute metabolic encephalopathy: - etiology likely multifactorial (urosepsis, hypernatremia, and dehydrati on) - treat UTI as above (8) Legally blind: (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 - currently on morphine drip, frequency increased to due to perceived analgesia needs (11) Elevated troponin: - Suspect demand-ischemia given sepsis and significant physiologic stress (12) Elevated bilirubin: - This appears to be chronically elevated and substantially increases with acute illnesses. no longer trending lab values Admission and Anticipated Discharge Date Admission Date: May 22, 2020 Supervising Physician Co-Signing Physician Notes I personally examined the patient and verified all song points of history and exam, discussed case, and agree with decision making with Dr Rodriguez. resting comfortably. when i say her name, she does awaken and moan vitals noted laying in generally nad although does moan a little when i say her name, otherwise nad. no gurgling respirations pain, dyspnea - comfort care - now much more comfortable overall with current plan of care (did order 1 time additional morphine since moaning when i saw her). sepsis - probably from UTI, possible pneumonia - either way appears to be moving to actively dying acute respiratory failure w hypoxia - most likely HFrEF due to all of above, but possible pneumonia - supportive care targeted at alleviating dyspnea hypernatremia - in the face of volume overload given pulmonary edema - seems most likely indicative of overall organ failure given these two "opposite" physiologic processes occuring at once. appears heading towards passing Subjective patient appears more comfortable today. attempts to communicate some, but all non-sensical conversaton. Review of Systems Review of Systems: Unobtainable due to cognitive status Physical Exam Constitutional: WD/WN, vitals as above + acute distress (mild, less so than on exam yesterday) and + frail appearing ENMT: external ear and nose normal, oropharynx normal Neck: normal visual inspection and trachea midline Respiratory: Auscultation: + rhonchi (throughout ) + gurgling respirations audible without stethoscope. oxymask in place Genitourinary: Shel[place] in place Resident Activity Tracking Resident Involvement: Resident Care Provided Care Provided: Adult Hospital Medicine (1) UTI (urinary tract infection) Encounter type: initial encounter Indwelling urinary catheter type: indwelling urethral catheter Urinary tract infection type: catheter-associated UTI Qualified Code(s): T83.511A - Infection and inflammatory reaction due to indwelling urethral catheter, initial encounter; N39.0 - Urinary tract infection, site not specified (2) Sepsis Acute respiratory failure type: with hypoxia Sepsis acute organ dysfunction status: with acute organ dysfunction Sepsis type: sepsis due to unspecified organism Severe sepsis acute organ dysfunction type: acute respiratory failure Severe sepsis shock status: without septic shock Qualified Code(s): A41.9 - Sepsis, unspecified organism; R65.20 - Severe sepsis without septic shock; J96.01 - Acute respiratory failure with hypoxia
[2020-05-26] MEDS: GLYCOPYRROLATE 0.2 MG/ML VIAL SQ PRN (15:57)
--- NOTE | 2020-05-26 17:59 | Billing Data ---
Date of Service May 26, 2020 Coding Level of Care Code 06663 Subseq Hosp Care Lvl 2
[2020-05-26] MEDS: LEVOFLOXACIN/D5W 750 MG/150 ML BAG IV SCH (20:24)
[2020-05-27] MEDS: CHECK SCOPOLAMINE PATCH PLACEMENT SCH ×3 (00:20→15:33)
[2020-05-27] MEDS: LIDOCAINE 5% 1 PATCH TD SCH (11:48)
--- NOTE | 2020-05-27 13:13 | Hospitalist Progress Note ---
Date of Service May 27, 2020 Assessment & Plan (1) Goals of care, counseling/discussion: comfort goals (2) Sepsis: Suspected from UTI. family had wanted attempt to treat sepsis - which was reasonable - now essentially fully comfort - the only reason i hesitate to dc the levaquin is that while her sepsis was probably from UTI, hard to rule out possible pneumonia - and would not want to stop abx and allow respiratory status to worsen/comfort to be harder to attain. while acute respiratory failure with hypoxia is most likely HFrEF - continue levaquin so as not to accidentally worsen comfort status if pneumonia is present. 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 d/w nursing at the bedside - pt comfortable almost entirely - even moaning less when moving/repositioning - although still does some. morphine gtt was able to be titrated down last night and she was still comfortable, although now today it has needed to be raised up some again Physical Exam Physical Exam: sleeping in bed, appearing comfortable. no distress. breathing unlabored on oxymask, no rumbling/gurgling, no accessory muscles or tachypnea. PG Care Time/CCT Total # of Minutes Spent Total Time Spent with Patient: Total time spent is greater than 50% in coordination of care (as documented) at patient's floor/unit and/or counseling patient: Coding Level of Care Code 54013 Subseq Hosp Care Lvl 2 Diagnoses Goals of care, counseling/discussion Z71.89 Sepsis A41.9; R65.20; J96.01 Acute respiratory failure type: with hypoxia Sepsis acute organ dysfunction status: with acute organ dysfunction Sepsis type: sepsis due to unspecified organism Severe sepsis acute organ dysfunction type: acute respiratory failure Severe sepsis shock status: without septic shock Elevated lactic acid level R79.89 UTI (urinary tract infection) T83.511A; N39.0 Encounter type: initial encounter Indwelling urinary catheter type: indwelling urethral catheter Urinary tract infection type: catheter-associated UTI Hypernatremia E87.0 Atrial fibrillation I48.91 Acute metabolic encephalopathy G93.41 Legally blind H54.8 Combined systolic and diastolic heart failure I50.40 Chronic prescription opiate use Z79.891 Elevated troponin R79.89 Elevated bilirubin R17 (1) Sepsis Acute respiratory failure type: with hypoxia Sepsis acute organ dysfunction status: with acute organ dysfunction Sepsis type: sepsis due to unspecified organism Severe sepsis acute organ dysfunction type: acute respiratory failure Severe sepsis shock status: without septic shock Qualified Code(s): A41.9 - Sepsis, unspecified organism; R65.20 - Severe sepsis without septic shock; J96.01 - Acute respiratory failure with hypoxia (2) UTI (urinary tract infection) Encounter type: initial encounter Indwelling urinary catheter type: indwelling urethral catheter Urinary tract infection type: catheter-associated UTI Qualified Code(s): T83.511A - Infection and inflammatory reaction due to indwelling urethral catheter, initial encounter; N39.0 - Urinary tract infection, site not specified
[2020-05-27] MEDS ORDERED: SCOPOLAMINE 1.5 MG TDSY TD SCH (17:30)
[2020-05-27] MEDS: MoRPHine SULF/NSS 250 MG/250 ML BTL IV PRN (23:08)
[2020-05-28] MEDS: CHECK SCOPOLAMINE PATCH PLACEMENT SCH ×4 (00:07→23:58)
[2020-05-28] MEDS: LIDOCAINE 5% 1 PATCH TD SCH (07:48)
[2020-05-28] MEDS: ATROPINE SULFATE 1% OP SOLN 5 ML BTL OP PRN (12:45)
--- NOTE | 2020-05-28 18:39 | Hospitalist Progress Note ---
Date of Service May 28, 2020 Assessment & Plan (1) Goals of care, counseling/discussion: comfort goals (2) Sepsis: Suspected from UTI. family had wanted attempt to treat sepsis - which was reasonable - now essentially fully comfort - the only reason i hesitate to dc the levaquin is that while her sepsis was probably from UTI, hard to rule out possible pneumonia - and would not want to stop abx and allow respiratory status to worsen/comfort to be harder to attain. while acute respiratory failure with hypoxia is most likely HFrEF - continue levaquin so as not to accidentally worsen comfort status if pneumonia is present. 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 currently on prn morphine - pain appearing to be controlled overall with this - just needed to tighten frequency (11) Elevated troponin: Suspect demand-ischemia given sepsis and significant physiologic stress (12) Elevated bilirubin: This appears to be chronically elevated and substantially increases with acute illnesses. Will continue to trend but do not suspect primary biliary cause of infection at present. Repeat CMP in AM Admission and Anticipated Discharge Date Admission Date: May 22, 2020 Subjective no HPI or ROS obtainable. pt appears comfortable Physical Exam Physical Exam: laying in bed asleep no distress, breathing unlabored with even chest rise and fall. no appearance of discomfort or distress. PG Care Time/CCT Total # of Minutes Spent Total Time Spent with Patient: Total time spent is greater than 50% in coordination of care (as documented) at patient's floor/unit and/or counseling p atient: Coding Level of Care Code 03532 Subseq Hosp Care Lvl 1 Diagnoses Goals of care, counseling/discussion Z71.89 Sepsis A41.9; R65.20; J96.01 Acute respiratory failure type: with hypoxia Sepsis acute organ dysfunction status: with acute organ dysfunction Sepsis type: sepsis due to unspecified organism Severe sepsis acute organ dysfunction type: acute respiratory failure Severe sepsis shock status: without septic shock Elevated lactic acid level R79.89 UTI (urinary tract infection) T83.511A; N39.0 Encounter type: initial encounter Indwelling urinary catheter type: indwelling urethral catheter Urinary tract infection type: catheter-associated UTI Hypernatremia E87.0 Atrial fibrillation I48.91 Acute metabolic encephalopathy G93.41 Legally blind H54.8 Combined systolic and diastolic heart failure I50.40 Chronic prescription opiate use Z79.891 Elevated troponin R79.89 Elevated bilirubin R17 (1) Sepsis Acute respiratory failure type: with hypoxia Sepsis acute organ dysfunction status: with acute organ dysfunction Sepsis type: sepsis due to unspecified organism Severe sepsis acute organ dysfunction type: acute respiratory failure Severe sepsis shock status: without septic shock Qualified Code(s): A41.9 - Sepsis, unspecified organism; R65.20 - Severe sepsis without septic shock; J96.01 - Acute respiratory failure with hypoxia (2) UTI (urinary tract infection) Encounter type: initial encounter Indwelling urinary catheter type: indwelling urethral catheter Urinary tract infection type: catheter-associated UTI Qualified Code(s): T83.511A - Infection and inflammatory reaction due to indwelling urethral catheter, initial encounter; N39.0 - Urinary tract infection, site not specified
[2020-05-29] MEDS: LIDOCAINE 5% 1 PATCH TD SCH (07:30)
[2020-05-29] MEDS: CHECK SCOPOLAMINE PATCH PLACEMENT SCH (07:30)
--- NOTE | 2020-05-29 12:36 | Hospitalist Progress Note ---
Date of Service May 29, 2020 Assessment & Plan (1) Goals of care, counseling/discussion: Ms. Arreguin is a 70 yo F brought in from [facility] where she receives her hospice care for AMS, thought to be secondary to urosepsis. Treating acute UTI with IV Levaquin. Due to increasing discomfort and in obvious pulmonary edema patient placed on comfort measures, including morphine drip, with additional bolus doses added for breakthrough pain. Drip rate at 6mg/hr. Anticipate passing while in hospital. - unfortunate, overall poor prognosis - patient with underlying severe LV dysfunction with EF 20-25%, with subsequent decline after suffering a right CVA in 02/2020 and recent left-sided CVA in April 2020 - treating sepsis, but not escalating care further - DNR/DNI, d/w son first by admitting hospitalist, then by palliative team - increased morphine drip to 6mg/hr + bolus doses ordered for breakthrough pain - continue atropine drops, scopolamine patch and glycopyrrolate for respiratory secretions (2) Sepsis: - etiology thought to be from acute UTI - treating with IV Levaquin (currently day 8), but not escalating care further per family's wishes - WBC 14 on admission. No longer drawing labs on comfort care. - while patient would benefit from IV fluid boluses to improve pressure, high likelihood this would send her into heart failure given underlying poor LV function (3) Elevated lactic acid level: - Trended down with IV fluids (4) UTI (urinary tract infection): - see above - continue abx (5) Hypernatremia: - Na level 157 on 05/24 - patient was started on 1/2 NSS on admission but this was d/c due to onset of pulmonary vascular congestion (poor HFrEF) - physiologically in contrast to pulmonary volume overload - likely contributory to metabolic encephalopathy - no longer checking lab values, as patient on comfort care (6) Atrial fibrillation: - rate is controlled - patient never wanted anticoagulation (7) Acute metabolic encephalopathy: - etiology likely multifactorial (urosepsis, hypernatremia, and dehydration) - treat UTI as above (8) Legally blind: (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 - currently on morphine drip, frequency increased to due to perceived analgesia needs (11) Elevated troponin: - Suspect demand-ischemia given sepsis and significant physiologic stress (12) Elevated bilirubin: - This appears to be chronically elevated and substantially increases with acute illnesses. no longer trending lab values DVT ppx: none Diet: NPO due to cognitive status Dispo: on comfort care Code: DNR/DNI Admission and Anticipated Discharge Date Admission Date: May 22, 2020 Supervising Physician Co-Signing Physician Notes Attending attestation Pt seen and examined in concert with Dr. Rodriguez. In agreement with the documented findings as noted in the resident documentation with any exceptions or additions as noted here. Seen and evaluated at bedside - appears comfortable with decreased respirations with visible pulses and bradycardia on evaluation. Sepsis in the setting of UTI and potentially PNA on hospice - continue IV levaquin to complete course of 10 days. Morphine as noted for respiratory distress. Atropine, scopolamine and glycopyrrolate as noted. Called by nursing and resident - patient as noted in summary note. Subjective Appears comfortable. Resting peacefully in room. no family pleasant at bedside. Review of Systems Review of Systems: Unobtainable due to cognitive status Physical Exam Constitutional: WD/WN, vitals as above + frail appearing ENMT: external ear and nose normal, oropharynx normal Neck: normal visual inspection and trachea midline Respiratory: Auscultation: + rhonchi (throughout ) Resident Activity Tracking Resident Involvement: Resident Care Provided Care Provided: Adult Hospital Medicine (1) UTI (urinary tract infection) Encounter type: initial encounter Indwelling urinary catheter type: indwelling urethral catheter Urinary tract infection type: catheter-associated UTI Qualified Code(s): T83.511A - Infection and inflammatory reaction due to indwelling urethral catheter, initial encounter; N39.0 - Urinary tract infection, site not specified (2) Sepsis Acute respiratory failure type: with hypoxia Sepsis acute organ dysfunction status: with acute organ dysfunction Sepsis type: sepsis due to unspecified organism Severe sepsis acute organ dysfunction type: acute respiratory failure Severe sepsis shock status: without septic shock Qualified Code(s): A41.9 - Sepsis, unspecified organism; R65.20 - Severe sepsis without septic shock; J96.01 - Acute respiratory failure with hypoxia
--- NOTE | 2020-05-29 15:46 | Palliative Care Progress Note ---
Date of Service May 29, 2020 Assessment & Plan (1) End of life care: 1) End-of-life care -The patient has been started on a Morphine drip and it has been titrated as needed-now at 6 mg/h. -No family at the bedside for my visit. -The patient is on an oxymask at 7L O2. -At this time, the patient is on full comfort measures only. -Low threshold to increase Morphine drip based on furrowed brow, moaning, or breathing pattern changes such as diaphragmatic breathing, or shallow rapid br eathing. -Life expectancy hours to days. -Palliative Care will follow. PPS: 10% (2) acute respiratory failure with hypoxia-continue O2 and morphine drip for comfort (3) UTI-patient on IV antibiotics (4) hypernatremia-due to poor p.o. intake which was present on past admissions (2) Acute respiratory failure with hypoxia: (3) UTI (urinary tract infection): (4) Hypernatremia: Subjective Patient seen and examined in room 352, no friends or family at bedside. Patient appears comfortable-on O2 at 7 L/min via oxymask. On a morphine drip currently at 6 mg/h-has not required any PRN morphine. Oral secretions well controlled with PRN atropine. Patient with increased mottling and cyanosis left lower extremity, cool to the ankle on the right, cool to mid [place] on the left. Patient imminent. Review of Systems Review of Systems: Unobtainable due to reduced consciousness Physical Exam Physical Exam: PE: Patient unresponsive to voice or touch HEENT: Dry mucous membranes, no excess oral secretions Respirations unlabored, respiratory rate 10, on O2 CV: Irregular Abdomen: Decreased bowel sounds Extremities: Left lower extremity externally rotated Skin: Left lower extremity cyanotic, cool to the level of the knee, right lower extremity early mottling, cool to the level of the ankle Neuro: Unresponsive to voice or touch PG Care Time/CCT Total # of Minutes Spent Total Time Spent with Patient: Total time spent 25 minutes with greater than 50% of the time spent at bedside assessing patient's current level of comfort and collaborating with attending physician Coding Level of Care Code 06645 Subseq Hosp Care Lvl 2 Diagnoses End of life care Z51.5 Acute respiratory failure with hypoxia J96.01 UTI (urinary tract infection) T83.511A; N39.0 Encounter type: initial encounter Indwelling urinary catheter type: indwelling urethral catheter Urinary tract infection type: catheter-associated UTI Hypernatremia E87.0 Time Spent (min) 25 (1) UTI (urinary tract infection) Encounter type: initial encounter Indwelling urinary catheter type: indwelling urethral catheter Urinary tract infection type: catheter-associated UTI Qualified Code(s): T83.511A - Infection and inflammatory reaction due to indwelling urethral catheter, initial encounter; N39.0 - Urinary tract infection, site not specified
--- NOTE | 2020-05-29 16:32 | Death Pronouncement Note ---
Date of Service May 29, 2020 Pronouncement Note Admission Date Admission Date: May 22, 2020 Contributing Factors (1) End of life care: Contributing factors: No response to verbal or noxious stimulation. No heart tones or breath sounds. Pupils nonreactive b/l. Time of 4:20pm. Contributing factors include end-stage congestive heart failure and bilateral cerebrovascular accidents. (2) Acute respiratory failure with hypoxia: (3) UTI (urinary tract infection): (4) Hypernatremia: Additional Data Attending physician: Bayron Mccauley MD Supervising Physician Co-Signing Physician Notes Attending attestation Pt seen and examined in concert with Dr. Rodriguez. In agreement with the documented findings as noted in the resident documentation. Resident Activity Tracking Resident Involvement: Resident Care Provided Care Provided: Adult Hospital Medicine
--- NOTE | 2020-06-14 16:02 | Discharge Summary ---
Date of Service May 29, 2020 Admission HPI Per Admitting Provider Liane Arreguin is a 70 year old female with atrial fibrillation, heart failure with reduced ejection fraction and recent large left CVA who presents to the ER via EMS from [facility] due to altered mental state. I am unable to get any history from the patient as she is on BiPAP, lethargic and even at her baseline she has difficulty talking since her stroke. Her family report significant decline since a Fentanyl patch and haldol was started for her and she has fallen from her bed a few times in the last 2 days although they also report yesterday she was responding to them and sitting up and speaking as much as she has been since her stroke. The family were unhappy at the Fentanyl patch and haldol as they were unsure of the reasons this was started. She was on hospice care at [facility] although due to the sudden decline and abnormal labs taken at [facility] (significant hypernatremia) her family wish her to be treated for her current condition to see if her cognitive state returns. I talked to [facility], who based on primary contact in EHR and prior palliative care notes is Liane's main decision maker (although she has 8 children) - confirmed DNR/DNI status, not for vasopressors or escalation of care beyond what we have done already (non-invasive ventilation, IV antibiotics, IV fluids), previously decided not for PEG tube although she was given temporary NG tube nutrition after her stroke while hospitalized. Admission Exam Per Admitting Provider Constitutional: + ill appearing and + frail appearing; no acute distress Respiratory: + labored breathing, + retractions, + uses accessory muscles and + tachypneic; no cough, + not able to speak in complete sentence, expiratory phase not prolonged and no audible wheezes Auscultation: + diminished lung sounds (throughout) and + crackles (throughout); no wheezes Cardiovascular: Extremities: + abnormal capillary refill (7-8 seconds finger tips, no central cyanosis) Gastrointestinal (Abdomen): Inspection/Auscultation: + abdomen distended and + hypoactive bowel sounds (minimal) Percussion/Palpation: abdomen soft; abdomen nontender, no guarding and abdomen not rigid Musculoskeletal: muscle atrophy in all 4 extremities Skin: + turgor decreased Neurologic: + not awake Psychiatric: Orientation: + not alert (responds to noxious stimuli, GCS 7 [id number]) Lymphatic: no cervical or axillary lymphadenopathy Principal Diagnosis Sepsis Discharge Exam Constitutional Patient . Not arousable to verbal or noxious stimuli. Eyes + no PERRL Respiratory + abnormal respiratory effort no respirations appreciated Cardiovascular Rate/Rhythm: + abnormal rate heart sounds absent Discharge Data Allergies Allergy/AdvReac Type Severity Reaction Status Date / Time Penicillins Allergy Unknown Unknown Verified 03/20/20 09:05 Consultations 05/22/20 16:06 ED Decision to Admit Stat 05/22/20 20:43 Consult Palliative Care Routine Hospital Course (1) End of life care: Patient was sent to the hospital from [facility] where she was receiving hospice care for an observed change in her mental status. The cause of her change in mentation was thought to be from a urinary tract infection. She was treated with IV antibiotics and, based on her family's preferences, was placed on comfort measures while under our care. Her family was aware with her overall prognosis and of the end-stage nature of her heart disease. Due to escalating needs for pain control, she was placed on a morphine drip and while under our care. (2) Acute respiratory failure with hypoxia: Total Time Total Time Spent Total Time Spent (In Minutes): see attending attestation Discharge Plan Discharge Items Patient Disposition: Discharge Diagnosis: Addtl Attending Provider Instructions: Patient was sent to the hospital from [facility] where she was receiving hospice care for an observed change in her mental status. The cause of her change in mentation was thought to be from a urinary tract infection. She was treated with IV antibiotics and, based on her family's preferences, was placed on comfort measures while under our care. Her family was aware with her overall prognosis and of the end-stage nature of her heart disease. Due to escalating needs for pain control, she was placed on a morphine drip and while under our care. Supervising Physician Co-Signing Physician Notes Attending attestation Pt seen and examined in concert with Dr. Rodriguez. In agreement with the documented findings as noted in the resident documentation with any exceptions or additions as noted here. Seen and evaluated at bedside - appears comfortable with decreased respirations with visible pulses and bradycardia on evaluation. Sepsis in the setting of UTI and potentially PNA on hospice - . Called by nursing and resident - patient as noted in summary note. Resident Activity Tracking Resident Involvement: Resident Care Provided Care Provided: Adult [facility]
== END 2020-05-29 22:27 | disposition expired | DRG 871 ==
LOC: ED 14:08 → SUATTDRO 17:53 → 2S 17:53 → 3W 05-24 08:22
DX: I11.0 Hypertensive heart disease with heart failure; I25.5 Ischemic cardiomyopathy; I50.42 Chronic combined systolic (congestive) and diastolic (congestive) heart failure; E78.5 Hyperlipidemia, unspecified; G93.41 Metabolic encephalopathy; I48.91 Unspecified atrial fibrillation; J96.01 Acute respiratory failure with hypoxia; Z66 Do not resuscitate; E87.0 Hyperosmolality and hypernatremia; A41.9 Sepsis, unspecified organism; Z79.899 Other long term (current) drug therapy; Z79.02 Long term (current) use of antithrombotics/antiplatelets; N39.0 Urinary tract infection, site not specified; Z51.5 Encounter for palliative care; H54.8 Legal blindness, as defined in USA